=== PATIENT | female | born 1945 | race Caucasian/White ===

== ENCOUNTER 2016-09-29 11:02 | Emergency (ER) | payer MEDICARE, MEDICAID ==
[~2016-09-29] VITALS: Ht 170.2 cm; Wt 73.9 kg
[~2016-09-29 11:02] MED LIST: ADVAIR 250/5028 PUFF IN; ASPIR-LOW81 MG PO; AVAPRO75 MG PO; BUSPIRONE HCL15 MG PO; CALCIUM CARB W/1 TA1 PO; CLARITIN 10MG T10 MG PO; CLOPIDOGREL75 MG PO; DAILY VITAMIN1 EAC2 PO; DOCUSATE SODIU100 MG PO; ELIQUIS5 MG PO; FLONASE 50 MCG16 GM; FLORASTOR250 M1 PO; IMDUR 30MG. TAB30 MG PO; IPRATROPIUM BROM3 M1 IH; LAMISIL250 MG PO; LASIX 20MG. TAB20 MG PO; LINZESS145 MCG PO; LOPRESSOR 50 MG50 MG PO; MACRODANTIN50 MG PO; POTASSIUM CHLO10 ME3 PO; PRAVACHOL80 M1 PO; PROTONIX 40MG T40 MG PO; RISPERDAL2 M1 PO; SINGULAIR10 MG PO; SPIRIVA HA1 PUFF/INH IH; SYNTHROID0.088 MG PO; VENTOLIN H0.09 MG/AC IH; VISTARIL25 MG PO; ZOFRAN ODT4 MG PO; ZOLOFT100 MG PO
[2016-09-29] MEDS ORDERED: ADVAIR DISKUS 21 DSK IH (11:13)
[2016-09-29] MEDS ORDERED: FUROSEMIDE 20MG20 MG PO (11:14)
[2016-09-29] MEDS ORDERED: PRAVASTATIN SOD80 M1 PO (11:15)
[2016-09-29] MEDS ORDERED: LOSARTAN POTASS50 MG PO (11:15)
[2016-09-29 11:22] LABS: LYMPH # 2.5 K/mm3 (0.7-4.5); LYMPH % 28.6 % (10-50.0)
--- NOTE | 2016-09-29 11:30 | Emergency Room Report ---
History of Present Illness Time Seen by 1125 Presenting Problem in Triage Pt arrived:Walked Presenting Problem:PT REPORTS L SIDED CHEST PAIN AND PRESSURE THAT BEGAN LASTNIGHT. PT REPORTS PAIN HAS BEEN SHARP AND DULL IN NATURE WITH PRESSURE FEELINGS Onset of symptoms date/time:09/28/16/ or onset unknown for:MEDICAL HX UNKNOWN Treatment Prior to Arrival: 2 81 MG ASPIRIN, PT IS HOME O2 DEPENDENT AT 3L PER [place] [employer] Provided by:SELF Sepsis Risk Assessment: Temp: 98.1 B/P: 120/84 MAP: 96 Pulse: 71 Resp: 18 Recent fever? N Clinical Suspician of Infection? N Mental Status: 1 - Regular (Normal Baseline) Sepsis Risk:Low Sepsis Risk Have you (or family members/close friends) recently traveled outside the [place]? N If Yes, where/when: Have you had exposure to infectious disease within the past month? N TB? Other? Specify: Source patient, RN notes reviewed Exam Limitations no limitations Comment Pt comes to the ED with left sided Chest pain and pressure that began last night. Pain has been both sharp and dull. She is Home O2 dependent on 3L [place] Her EKG shows a RBBB with a wide QRS. She reportedly had a stress test done here yesterday but does not know the results. Her PCP is Dr. Jonas in [place] and her Physician Office Nurse is Dr. HANK Dennis Cardiac Chest Pain Chest pain indicative of cardiac Yes ALLERGIES Coded Allergies: Iodinated Contrast Media - Oral and (Mild, 09/12/16) Opioids - Morphine Analogues (09/12/16) Opioids-Meperidine and Related (09/12/16) Opioids-Methadone and Related (09/12/16) Phenothiazines (08/18/16) Sulfa (Sulfonamide Antibiotics) (08/18/16) codeine (08/18/16) iohexol (08/18/16) meperidine (08/18/16) promethazine (08/18/16) sulfamethoxazole (From SEPTRA) (08/18/16) trimethoprim (From NOVRA) (08/18/16) Uncoded Allergies: CLASS: 36:68 - DIAGNOSTIC; ROENTGENOGRAPHY (09/12/16) Home Medications Active Scripts Metoprolol Tartrate (Lopressor) 50 MG PO TID #90 TAB Ref 1 Prov: 09/14/16 IRBESARTAN (Irbesartan) 75 MG PO DAILY #30 TAB Ref 2 Prov: 09/14/16 Apixaban (Eliquis) 5 MG PO BID #60 TAB Ref 1 Prov: 09/14/16 Reported Medications ALBUTEROL (Ventolin Hfa) 1-2 PUFF IH Q4HP PRN COPD ALBUTEROL-IPRATROPIUM (Iprat-Albut 0.5-3(2.5) MG/3 Ml) 3 ML IH Q6HP PRN COPD Buspirone Hcl 15 MG PO BID CALCIUM CARBONATE/VITAMIN D3 (Calcium 600 + Vit D 400 Tablet) 1 TAB PO BID CLOPIDOGREL BISULFATE (Clopidogrel 75MG) 75 MG PO DAILY Fluticasone Propionate (Flonase 50 Mcg Nasal [place]) 1 SPRAY NA DAILY Hydroxyzine Pamoate (Vistaril) 25 MG PO TID PRN ANXIETY Linaclotide (Linzess 145MCG) 145 MCG PO DAILY Montelukast Sodium (Singulair) 10 MG PO QHS Multivitamin (Daily Vitamin Formula) 1 TAB PO DAILY NITROFURANTOIN MACROCRYSTAL (Macrodantin Capsule) 50 MG PO QHS Ondansetron (Zofran 4MG Odt) 4 MG PO DAILYP PRN NAUSEA Risperidone (Risperdal) 2 MG PO QHS Saccharomyces Boulardii (Florastor) 250 MG PO BID Aspirin (Aspir-Low) 81 MG PO DAILY Docusate Sodium 100 MG PO BID Furosemide (Lasix 20MG) 20 MG PO DAILY Levothyroxine Sodium (Synthroid 0.088MG) 0.088 MG PO DAILY Loratadine (Claritin 10MG) 10 MG PO DAILY POTASSIUM CHL (Potassium Chloride) 10 MEQ PO DAILY Pravastatin Sodium (Pravachol) 80 MG PO QHS SERTRALINE HYDROCHLORIDE (Zoloft 100MG) 100 MG PO DAILY TERBINAFINE HCL (Lamisil) 250 MG PO DAILY Tiotropium [place] (Spiriva) 1 PUFF IH DAILY FLUTICASONE/SALMETEROL (Advair 250-50 Diskus) 1 PUFF IH BID Furosemide (Furosemide) 20 MG PO DAILY #30 Pravastatin Sodium 80 MG PO QHS #30 Losartan Potassium (Losartan 50MG) 50 MG PO DAILY #30 History Medical History General CAD? No Angina: Yes DC: No Hypertension? Yes Hyperlipidemia? No CHF? No DVT? No PE? No COPD? Yes Asthma? Yes Anemia? No GERD? No Gastric ulcers? No GI Bleed? No Hernia? Yes Thyroid Problems? No Hypothyroidism? No CVA? Yes Seizures? No Diabetes? No UTI? Yes Stones? Yes BPH? No GB Disease: No Nephritic Syndrome? No Asplenia? No Hepatitis? No Sickle Cell Disease? No Arthritis? No Migraines? No Cataracts? No Glaucoma? No MRSA? No HIV? No TB? No Anxiety? No Depression? No Cancer? No More? 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 Family History Family Hx Diabetes No CAD Yes Hypertension Yes Hyperlipidemia Yes Cancer Yes TB No Social History Smoking Hx Smoker: Never Smoker Tobacco: No Packs/day N/A Alcohol Alcohol: No Review of Systems All Other Systems Reviewed and Negative Constitutional see HPI Respiratory see HPI Cardiovascular see HPI Physical Exam Vital Signs Vital Signs Date Time Temp Pulse Resp B/P Pulse O2 O2 Flow FiO2 Ox Delivery Rate 09/29 1148 98.4 74 18 159/92 99 3 09/29 1104 98.1 71 18 120/84 95 3 General Appearance normal appearance, WD/WN, no apparent distress Respiratory Status No: respiratory distress. Lung Sounds bilateral: normal breath sounds, decreased breath sounds. Cardiovascular regular rate/rhythm Neurologic alert, dietitian therapeutic II-XII nml as tested Medical Decision Making LABS/Meds/Orders Pt receiving controlled substance in ED? No Results/Orders Laboratory Tests 09/29/16 1110: B-Natriuretic Peptide 222 H 09/29/16 1110: Sodium 135 L, Potassium 4.6, Chloride 100, Carbon Dioxide 33 H, BUN 18, Creatinine 1.1 H, Estimated Creat Clear 53, Estimated GFR (MDRD) 49 L, Glucose 86, Calcium 9.0, Total Bilirubin 0.4, AST 23, ALT 19, Alkaline Phosphatase 76, Creatine Kinase 56, CK-MB (CK-2) Rel Index 0.9, CK and CKMB Interp < 0.5, Troponin I < 0.02, Total Protein 7.5, Albumin 3.4, Globulin 4.1 H, Albumin/ Globulin Ratio 0.8 L, WBC 8.9, RBC 4.47, Hgb 12.0 L, Hct 37.9, MCV 84.7, RDW 15.1, Plt Count 60 L, MPV 12.4 H, Gran % 60.6, Gran # 5.4, Lymphocytes % 28.6, Monocytes % 9.2, Eosinophils % 1.1, Basophils % 0.5, Lymphocytes # 2.5, Monocytes # 0.8, Eosinophils # 0.1, Basophils # 0.0, PUBS MCHC 31.7 L, MCH 26.8 L Current Medication Orders Sig/Argelia Start time Last Medication Dose Route Stop Time Status Admin Ondansetron HCl 4 MG ONCE ONE 09/29 1200 DC 09/29 IV 09/29 1201 1151 Ondansetron HCl 0 .STK-MED ONE 09/29 1151 DC .ROUTE Albuterol/Ipratropium 3 ML ONCE ONE 09/29 1145 DC INH 09/29 1146 Sodium Chloride 10 ML PRN PRN 09/29 1115 AC IV 09/30 1104 Orders Procedure Date/time Status OP COURTSEY MEAL 09/29 1155 Active BRAIN NATRIURETIC PEPTIDE 09/29 1142 Complete RT REQUEST DUONEB 09/29 1139 Active SINUS SERIES 3 VIEWS 09/29 1139 Active ELECTROCARDIOGRAM REQUEST 09/29 1104 Active CHEST-PORTABLE 09/29 1104 Active IV SALINE LOCK 09/29 1104 Active RADIOLOGICAL EQUIPMENT SPECIALIST 09/29 1104 Active CBC WITH AUTO DIFF 09/29 1104 Complete CARDIAC ENZYMES 09/29 1104 Complete CHEM 12 PROFILE 09/29 1104 Complete CM/EKG CM/EKG EKG Wide complex , RBBB, regular rhythm but do not see pacer spike XRAY/CT/US XRAY/CT/US XRAY chest, sinus XR interpretation by reviewed by me Xray Results normal/NAD Departure Departure Time of Disposition 1219 Disposition DC Home or Self Care(routine) Clinical Impression Primary Impression: Atypical chest pain Secondary Impressions: COPD (chronic obstructive pulmonary disease) Qualifiers: COPD type: unspecified COPD Qualified Code: J44.9 - Chronic obstructive pulmonary disease, unspecified Thrombocytopenia Condition STABLE Referrals [facility] Lizzy BRIDGES II (PCP): 2 Days-Call Office Patient Instructions Chronic Obstructive Pulmonary Disease (Alternative Therapy) , DI for Atypical Chest Pain, DI for Chronic Obstructive Pulmonary Disease Additional Instructions Use medicines as prescribed and followup with PCP or Dr. MCKINNEY as needed or return to the ED wth any worsening symptoms Discharge Counseling Counseled pt/family regarding diagnosis, test results, medications/RX, home care, follow up needs ED Critical Care Critical Care No If Critical Care minutes are documented, the time involved in the performance of seperately reportable procedures was not counted toward critical care time documented. I directly delivered medical care to this critically ill and/or injured patient. Timely evaluation and treatment was necessary to address the significant organ system(s) dysfunction present in this patient. at 1222
[2016-09-29 11:44] LABS: BUN 18 mg/dL (7-18)
[2016-09-29 11:45] LABS: GFR (ESTIMATED) 49 ML/MIN (59-)
--- OUTSIDE RECORDS SUMMARY | 2016-09-29 12:23 | External Medical Summary Rpt ---
Author Author , JOSEPH RUIZ Address Unknown Phone Care Team Providers Care Peoplesoft Consultant Name Role Phone DANITZA RIDER, Unavailable Unavailable DANITZA RIDER ACTIVE DAY OF Unavailable Unavailable KOI, ACTIVE DAY OF [facility] ACTIVE DAY OF Unavailable Unavailable KOI, ACTIVE DAY OF [facility], [facility] JONES ARON, JONES Unavailable Unavailable ARON AHMED ADN, AHMED ADN Unavailable Unavailable AIKAT SHA, AIKAT SHA Unavailable Unavailable [facility] , Unavailable Unavailable [facility] [place] [facility] [place] Unavailable [facility]available [facility] [place] RIFAI LACEY, AL Unavailable Unavailable RIFAI LACEY ALLRAN JR VEE, ALLRAN Unavailable Unavailable JR VEE ALLRAN JR VEE, ALLRAN Unavailable Unavailable JR VEE WALLACE ANT, WALLACE Unavailable Unavailable ANT [facility] Unavailable Unavailable RESPONSE, [facility] Unavailable Unavailable RESPONSE, [facility] [place], Unavailable Unavailable INC., [facility] [employer] [facility] [place], Unavailable Unavailable INC., [facility] [place], INC. EVANGELISTA CHANCE, EVANGELISTA CHANCE Unavailable Unavailable AYACH XAVI, AYACH XAVI Unavailable Unavailable PARIS HARDEN Unavailable Unavailable JIM LUNDBERG MD GLORIA, Unavailable Unavailable TAMIKA KOVACS GLORIA BEACH ARON, BEACH ARON Unavailable Unavailable BEACH ARON, BEACH ARON Unavailable Unavailable EDGARD REGLA, Unavailable Unavailable EDGARD REGLA ANIA ANT, ANIA ANT Unavailable Unavailable BRACKEN SHIRAZ, BRACKEN Unavailable Unavailable SHIRAZ ADAMARIS III BRAYAN, Unavailable Unavailable ADAMARIS III BRAYAN BRANDSER GLORIA, Unavailable Unavailable BRANDSER GLORIA ROXI THERESA, ROXI Unavailable Unavailable THERESA KEANE KIRILL, KEANE Unavailable Unavailable KIRILL BROWN RAC, BROWN RAC Unavailable Unavailable SIGIFREDO DEL, Unavailable Unavailable SIGIFREDO DEL SINHA HORTENCIA, SINHA HORTENCIA Unavailable Unavailable ARACELIS BAXTER, Unavailable Unavailable ARACELIS HSU JR. CHA, Unavailable Unavailable JR. VEE [facility] Unavailable [facility], [facility] Unavailable Unavailable REHABILITATION, [facility], Unavailable Unavailable [facility] Un[facility] Unavailable [facility] Unavailable Unavailable [facility] CHOLERA KIRILL, CHOLERA Unavailable Unavailable KIRILL VICTOR SUSI, VICTOR Unavailable Unavailable DONN ESCALONA, Unavailable Unavailable DONN FRAGOSO [facility], Unavailable Unavailable [facility] Unavailable Unavailable [facility], [facility] GALVIN LEE, GALVIN LEE Unavailable Unavailable ROCK JAYLYN, Unavailable Unavailable ROCK JAYLYN [facility]SA [facility], Unavailable Unavailable [facility]ER[facility] Un[facility] AURELIANO LUGO MD Unavailable Unavailable PSC, AURELIANO LUGO MD [facility] JACQUELINE ADR, JACQUELINE Unavailable Unavailable ADR [facility] Unavailable Unavailable [facility], [facility] Unavailable Unavailable [facility], [facility] STEPHANIE TIERNEY, BROWN TIERNEY Unavailable Unavailable LUPE PETTIT, Unavailable Unavailable LUPE PETTIT JR, CHA, Unavailable Unavailable ECPINA MCNEILL CHA CORRIE AVA, CORRIE Unavailable Unavailable AVA CORRIE AVA, CORRIE Unavailable Unavailable AVA [facility] FAFIDEL WAQAS, FAFIDEL WAQAS Unavailable Unavailable BILLY DANG Unavailable Unavailable SINTIA SHEN, Unavailable Unavailable SINTIA VILLAGOMEZ NAN, BLISS Unavailable Unavailable NAN BALL, III QUENTIN, Unavailable Unavailable BALL, III QUENTIN CROWELL MAR, CROWELL MAR Unavailable Unavailable [facility], Unavailable Unavailable [facility] GELORMINI ANDREW, Unavailable Unavailable GELORMINI ANDREW [facility]available [facility]available , [facility] Unavailable Unavailable [facility], [facility] Unavailable Unavailable EMS, [facility] HILLMAN MJ, HILLMAN MJ Unavailable Unavailable ABDULLAHI HUYNH Unavailable Unavailable MARABDULLAHI MAR VIVIAN THO, VIVIAN THO Unavailable Unavailable JERMAINE ANI, Unavailable Unavailable JERMAINE ANI [facility], Unavailable Unavailable [facility] Unavailable Unavailable INC, [facility], Unavailable Unavailable INC., [facility], INC. [facility], Unavailable Unavailable INC., [facility], INC. SINDY LAWLER, Unavailable Unavailable SINDY RICHARDS, Unavailable Unavailable CHUCKIE NOGUERA, Unavailable Unavailable DES K, CHUCKIE, DES K SANCHES II ALA, SANCHES II Unavailable Unavailable ALA [facility] Un[facility] Un[facility], [facility] DURHAM MJ, DURHAM Unavailable Unavailable MJ DURHAM, LUPE S, Unavailable Unavailable DURHAM, LUPE S ARAVIND JAYLYN, ARAVIND Unavailable Unavailable JAYLYN HEEB CHR, HEEB CHR Unavailable Unavailable HESSELL EUGEN E, Unavailable Unavailable HESSELL EUGEN E SILKE MCNEILL DON, Unavailable Unavailable SILKE MCNEILL DON HERMAN MADYSON, HERMAN MADYSON Unavailable Unavailable HULLER RAL, HULLER Unavailable Unavailable RAL LIU TRA, LIU TRA Unavailable Unavailable HURST TERENCE, HURST TERENCE Unavailable Unavailable INFECTIOUS DISEASE Unavailable Unavailable CONSULTAN, INFECTIOUS DISEASE CONSULTAN PARISH BEDOYA, Unavailable Unavailable LUCA OLIVIER, Unavailable Unavailable LUCA MAYO LAR, TODD Unavailable Unavailable LAR MOUSTAPHA CHR, MOUSTAPHA Unavailable Unavailable CHR ADRIANA III VEE, Unavailable Unavailable ADRIANA III VEE [facility] JOEY PEPITO, Unavailable Unavailable JOEY PEPITO BUBBA ARVIND, BUBBA Unavailable Unavailable ARVIND [facility], Unavailable Unavailable [facility] ABIGAIL REGLA, ABIGAIL REGLA Unavailable Unavailable KLEIMEYER ERIK, Unavailable Unavailable [facility] OK[facility], Unavailable Unavailable [facility] RAMÍREZ GOLDMAN KOTTSARAH Unavailable Unavailable SUSI IBETH C, IBETH C Unavailable Unavailable IBETH CHI, IBETH CHI Unavailable Unavailable IBETH, C S, IBETH, C S Unavailable [facility] Un[facility], Unavailable Unavailable [facility] AILYN WHITNEY, AILYN Unavailable Unavailable WHITNEY LAUSE, ALLYSON V, Unavailable Unavailable LAUSE, ALLYSON V DENISE ARON, DENISE Unavailable Unavailable ARON BELKYS JAM, BELKYS JAM Unavailable Unavailable BARBARA QUENTIN, BARBARA Unavailable Unavailable QUENTIN BARBARA QUENTIN, BARBARA Unavailable Unavailable QUENTIN MCCURDY JACK, MCCURDY JACK Unavailable Unavailable [facility] Unavailable [facility], [facility], [facility]available Unavailable [facility] Unavailable [facility], [facility] Unavailable Unavailable 9[facility] Unavailable Unavailable ACTION, [facility] JULIÁN REGLA, JULIÁN Unavailable Unavailable REGLA JULIÁN REGLA, JULIÁN Unavailable Unavailable REGLA LUBBERS SHIRAZ, LUBBERS Unavailable Unavailable SHIRAZ RUIZ, RUIZ Unavailable Unavailable RUIZ SUSIE, RUIZ Unavailable Unavailable SUSIE [facility] Unavailable Unavailable SERVICES, [facility] KENDRA AUGUST, KENDRA Unavailable Unavailable [facility]UGUST [facility] Unavailable Unavailable [facility], [facility] GAMA MJ, GAMA Unavailable Unavailable MJ MARINA ESQUEDA MD, Unavailable Unavailable MARINA ESQUEDA MD [facility] Un[facility] LLC, [facility], [facility] Unavailable Unavailable [facility] -, [facility] Unavailable Unavailable - [place], [facility] Unavailable Unavailable [facility] Unavailable Unavailable SERV COLLECTIONS DIRECTOR R, [facility] SERV COLLECTIONS DIRECTOR R [facility] Unavailable Unavailable SERV COLLECTIONS DIRECTOR R, [facility] SERV COLLECTIONS DIRECTOR R [facility] Unavailable Unavailable SERVICE, [facility] MERHAR GAR, MERHAR Unavailable Unavailable GAR MESSERLI ADR, Unavailable Unavailable MESSERLI ADR [facility], COLLECTIONS DIRECTOR [facility] Unavailable [facility]available [facility], [facility] NICOLE [facility] DO Unavailable Unavailable INC, [facility] MINION SHIRAZ, MINION Unavailable Unavailable SHIRAZ LUIS, DEBABRATA, Unavailable Unavailable LUIS, DEBABRATA MUSIC, MUSIC Unavailable Unavailable NEILS GLORIA, NEILS GLORIA Unavailable Unavailable [facility], Un[facility], Unavailable Unavailable [facility] NICKELS SHIRAZ, NICKELS Unavailable Unavailable SHIRAZ VALDO GUILHERME, Unavailable Unavailable VALDO GUILHERME OSTERHAGE BRIDGET, Unavailable Unavailable OSTERHAGE BRIDGET OUTSA REKHA, OUTSA REKHA Unavailable Unavailable TRACY REGLA, TRACY REGLA Unavailable Unavailable [facility] Unavailable Unavailable [facility] Unavailable [facility]available SQUAD, [facility] Unavailable Unavailable [facility], [facility] Unavailable [facility] JAN FRANKS Unavailable Unavailable BAR FORTUNE, CHAVA, FORTUNE, Unavailable Unavailable CHAVA OLIVO BRA, OLIVO Unavailable Unavailable BRA COBB SUSI, Unavailable Unavailable COBB SUSI [facility] Unavailable Unavailable [facility] PULMANO SIRENA, PULMANO Unavailable Unavailable SIRENA BARTON MUH, BARTON Unavailable Unavailable MUH BARTON, PERKINS, Unavailable Unavailable BARTON, PERKINS [facility] Un[facility] Unavailable Unavailable PSC, [facility] RAMAIAH VEE, RAMAIAH Unavailable Unavailable VEE RAMAIAH, IRON, Unavailable Unavailable RAMAIAH, IRON REDA HAS, REDA HAS Unavailable Unavailable MATT NEREIDA, Unavailable Unavailable MATT NEREIDA REKHRAJ, LEXA, Unavailable Unavailable REKHRAJ, LEXA REXROAD, MRAIELA T, Unavailable Unavailable REXROAD, MARIELA T ESTEBAN GLORIA, Unavailable Unavailable ESTEBAN GLORIA RINALDINI LACEY, Unavailable Unavailable RINALDINI LACEY RINALDINI LACEY, Unavailable Unavailable RINALDINI LACEY RINALDINI, CHANA, Unavailable Unavailable RINALDINI, CHANA ROEBKER JAM, ROEBKER Unavailable Unavailable JAM EMANUEL GUILHERME, EMANUEL Unavailable Unavailable GUILHERME CT JACQUELINE, CT JACQUELINE Unavailable Unavailable [facility] Unavailable Unavailable [place] Unavailable Unavailable [facility], [facility] Unavailable Un[facility], [facility] RUSCHMAN KEYLA, Unavailable Unavailable RUSCHMAN KEYLA ONUR MAR, ONUR Unavailable Unavailable MAR ABBY JACK, ABBY JACK Unavailable Unavailable AVTAR JACQUELINE, AVTAR Unavailable Unavailable JACQUELINE CECY LEAH, CECY Unavailable Unavailable LEAH SCHKELSY RAN, Unavailable Unavailable SCHLEENBAJORGITO RAN HONG JAM, HONG Unavailable Unavailable JAM SCHMITTER NEREIDA, Unavailable Unavailable SCHMITTER NEREIDA LAVELL THERESA, LAVELL Unavailable Unavailable THERESA SUAD LEE, SUAD Unavailable Unavailable BELKYS [facility] Unavailable Unavailable CENTER, [facility] Unavailable Unavailable [facility], [facility] CALDERON WAQAS, CALDERON Unavailable Unavailable WAQAS FERNANDEZ, Unavailable Unavailable HUANG CONNELL Unavailable Unavailable ENCINAS CHR, ENCINAS CHR Unavailable Unavailable ENCINAS AYALA, ENCINAS AYALA Unavailable Unavailable JANAE LALITA, JANAE Unavailable Unavailable LALITA [facility] Unavailable [facility] Unavailable [facility], [facility] Unavailable Unavailable [facility], [facility] Unavailable Unavailable [facility], [facility] Unavailable [facility], Unavailable Unavailable [facility]available Unavailable COLLECTIONS DIRECTOR ST, [facility] COLLECTIONS DIRECTOR [facility]available Unavailable CENTER, [facility] Unavailable Unavailable [facility]ENTER, [facility] Unavailable Unavailable PHYSICIANS, [facility] Unavailable Unavailable EMELINA, [facility] ADD[facility], Unavailable Unavailable [facility] ADDIE REYNALDO, REYNALDO Unavailable Unavailable ELVA VANEAGS, Unavailable Unavailable MIGUELITO MORENO Unavailable Unavailable ISI BALES Unavailable Unavailable [facility] Unavailable [facility]available [facility] MARYA DIR, MARYA Unavailable Unavailable DIR MARYA ALAYNA, MARYA Unavailable Unavailable ALAYNA THRELKELD II, Unavailable Unavailable THRELKELD II THRELKELD II QUENTIN, Unavailable Unavailable THRELKELD II QUENTIN MCGHEE GILES, MCGHEE GILES Unavailable [facility]available [facility] Un[facility] TRUE SUSIE, TRUE SUSIE Unavailable Unavailable [facility], Unavailable Unavailable [facility] DANA SAUCEDA VEE, CHRISTINE Unavailable Unavailable VEE VERHEY PET, VERHEY Unavailable Unavailable PET VILLAFLOR, FERNANDO M, Unavailable Unavailable VILLAFLOR, FERNANDO M [facility] Unavailable Unavailable PROFESSIO, [facility] WADE GUILHERME, WADE Unavailable Unavailable GUILHERME GERMÁN JR THO, WHAYNE Unavailable Unavailable JR ANAIS GORDON JR, Unavailable Unavailable ANAIS DUNLAP JR DEN, Unavailable Unavailable SHARI DEN [facility], Unavailable Unavailable [facility] WILLOBY, WILLOBY Unavailable Unavailable WILLOBY KIRILL, WILLOBY Unavailable Unavailable KIRILL LINO KIRILL, LINO Unavailable Unavailable KIRILL JR JAMESON QUENTIN, Unavailable Unavailable JR QUENTIN BARBA [facility]NG [facility]AN Unavailable [facility]available [facility], Un[facility], Unavailable [facility] CLAUDIAJENNIFER PENA, CLAUDIAJENNIFER PENA Unavailable Unavailable BERNADETTE VARGAS, Unavailable Unavailable BERNADETTE VARGAS Purpose Continuity of Care Document - 03-27-2007 through 2016 Problems Code Diagnosis DOS Provider Status R079 CHEST PAIN 09-11-2016 ST UNSPECIFIED [facility] PHYSICIANS R0989 OTH SPEC SX 09-11-2016 ST & SIGNS [facility] INVLV THE PHYSICIANS CIRC & RESP SYS R110 NAUSEA 09-11-2016 [facility] PHYSICIANS R350 FREQUENCY 09-11-2016 ST OF [facility] MICTURITION PHYSICIANS R5383 OTHER 09-11-2016 ST FATIGUE [facility] PHYSICIANS R7989 OTHER SPEC 09-11-2016 ST ABNORMAL [facility] FINDINGS PHYSICIANS BLOOD CHEMISTRY Z6825 BODY MASS 09-11-2016 ST INDEX BMI [facility] 25.0-25.9 PHYSICIANS ADULT I509 HEART 08-31-2016 [facility] FAILURE HOME UNSPECIFIED MEDICAL EQUIPME 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 EQUIPME N390 URINARY 08-24-2016 ST TRACT [facility] INFECTION PHYSICIANS SITE NOT SPECIFIED R1030 LOWER 08-24-2016 ST ABDOMINAL [facility] PAIN PHYSICIANS UNSPECIFIED H68870 BASAL CELL 08-23-2016 DERMATOLOGY CARCINOMA SKIN OF CONSULTANTS OTHER PART PSC OF TRUNK I10 ESSENTIAL 08-18-2016 [facility] HYPERTENSI[facility] INC N L7601 INTRAOP HEM 08-18-2016 [facility] SKN&SUBQ INC TISS COMP DERM PROC B351 TINEA 08-09-2016 ST UNGUIUM [facility] PHYSICIANS J302 OTHER 08-09-2016 ST SEASONAL [facility] ALLERGIC PHYSICIANS RHINITIS L089 LOCAL INF 08-09-2016 THE SKIN & [facility] SUBCUTANEOU PHYSICIANS S TISSUE UNS R0981 NASAL 08-09-2016 ST CONGESTION [facility] PHYSICIANS B14508 SQUAMOUS 07-26-2016 DERMATOLOGY CELL CA SKIN RT CONSULTANTS UPPER LIMB PSC INCL SHLDR L570 ACTINIC 07-26-2016 DERMATOLOGY KERATOSIS CONSULTANTS PSC Z6824 BODY MASS 07-03-2016 ST INDEX BMI [facility] 24.0-24.9 PHYSICIANS ADULT J441 CHRONIC 06-29-2016 OBSTRUCTIVE [facility] PULMONARY PHYSICIANS DZ W/EXACERBAT ION J101 FLU D/T OTH 06-26-2016 ST ID FLU [facility] VIRUS OT PHYSICIANS RESP MANIFESTATI ONS 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 OF 06-11-2016 DERMATOLOGY UNCERTAIN BEHAVIOR OF CONSULTANTS SKIN PSC B69354 CUTANEOUS 06-11-2016 DERMATOLOGY ABSCESS BACK ANY CONSULTANTS PART EXCEPT PSC BUTTOCK L280 LICHEN 06-11-2016 DERMATOLOGY SIMPLEX CHRONICUS CONSULTANTS PSC B9689 OTH SPEC 05-24-2016 ST BACTERIAL [facility] AGNT CAUSE PHYSICIANS DZ CLASSIFIED ELSW G479 SLEEP 05-24-2016 ST DISORDER [facility] UNSPECIFIED PHYSICIANS J0190 ACUTE 05-24-2016 ST SINUSITIS [facility] UNSPECIFIED PHYSICIANS J209 ACUTE 05-24-2016 ST BRONCHITIS [facility] UNSPECIFIED PHYSICIANS K210 GASTRO-ESOP 05-24-2016 ST HAGEAL [facility] REFLUX PHYSICIANS DISEASE W/ ESOPHAGITIS E039 HYPOTHYROID 04-11-2016 ST. ISM [facility] UNSPECIFIED ADDIE E559 VITAMIN D 04-11-2016 ST. DEFICIENCY [facility] UNSPECIFIED ADDIE E785 HYPERLIPIDE 04-11-2016 ST. 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 I440 ATRIOVENTRI 12-19-2015 [place] [facility] C[facility] BLOCK SERV FIRST [facility] DEGREE I4510 UNSPECIFIED 12-19-2015 [place] [facility] CH BLOCK I471 SUPRAVENTRI 12-19-2015 [facility] TACHYCARDIA I4891 UNSPECIFIED 12-19-2015 [facility]- ATRIAL [facility] FIBRILLATIO EMS N R002 PALPITATION 12-19-2015 ST S [facility] PHYSICIANS R0789 OTHER CHEST 12-19-2015 [facility] R0902 HYPOXEMIA 12-19-2015 [facility] PHYSICIANS R092 RESPIRATORY 12-19-2015 [facility]- ARREST [facility] EMS R55 SYNCOPE AND 12-19-2015 ST COLLAPSE [facility] PHYSICIANS R9431 ABNORMAL 12-19-2015 [facility] ELECTROCARD SERV IOGRAM FOUNDATION S2493AH CONTUSION 12-19-2015 ST OF SCALP [facility] INITIAL PHYSICIANS ENCOUNTER D2836MI UNSPECIFIED 12-19-2015 [place] [facility] OF SERV HEAD [facility] INITIAL ENCOUNTER V316IXG UNSPECIFIED 12-19-2015 [place] [facility] OF SERV NECK FOUNDATION INITIAL ENCOUNTER Q18405D CONTUSION 12-19-2015 ST UNS BACK [facility] WALL THORAX PHYSICIANS INITIAL ENCOUNTER D52XMDF UNSPECIFIED 12-19-2015 [place] [facility] F[facility] INITIAL [facility] ENCOUNTER K5909 OTHER 12-02-2015 ST CONSTIPATIO [facility] N PHYSICIANS R109 UNSPECIFIED 12-02-2015 ST ABDOMINAL [facility] PAIN PHYSICIANS N3001 ACUTE 09-16-2015 ST CYSTITIS [facility] WITH PHYSICIANS HEMATURIA Z1231 ENCOUNTER 09-16-2015 ST SCREENING [facility] MAMMO MALIG PHYSICIANS NEOPLASM BREAST N3000 ACUTE 08-08-2015 ST CYSTITIS [facility] WITHOUT PHYSICIANS HEMATURIA R8290 UNSPECIFIED 08-08-2015 ST ABNORMAL [facility] FINDINGS IN MED CTR COLLECTIONS DIRECTOR URINE ST H34379 PERSONAL 08-08-2015 ST HISTORY OF [facility] URINARY PHYSICIANS TRACT INFECTIONS I480 PAROXYSMAL 07-19-2015 [place] [facility] ATRIAL SERV FIBRILLATIO FOUNDATION N I498 OTHER 07-19-2015 [facility] SPECIFIED MEDICAL CARDIAC RESPONSE ARRHYTHMIAS J029 ACUTE 07-19-2015 [facility] MED[facility] PHARYNGITIS SERV FOUNDATION UNSPECIFIED J90 PLEURAL 07-19-2015 [place] [facility] EFFUSION SERV NOT FOUNDATION ELSEWHERE CLASSIFIED J9811 ATELECTASIS 07-19-2015 [facility] SERV [facility] R072 PRECORDIAL 07-19-2015 ST PAIN [facility] MED CTR Z7902 ANIMAL DAMAGE CONTROL AGENT 07-19-2015 [facility] MEDICAL CURR USE SERV ANTITHROMBO FOUNDATION TICS/ANTIPL ATELETS Z7982 DETENTION 07-19-2015 [place] [facility] CURRENT USE SERV OF ASPIRIN [facility] H44888 PAIN IN 06-24-2015 ST. LEFT [facility] SHOULDER ADDIE R937 ABN FIND ON 06-24-2015 ST. DX IMAG [facility] OTH PART ADDIE MUSCULOSKEL ETAL SYS I214 NON-ST 06-09-2015 [place] [facility] ELEVATION SERV MYOCARDIAL FOUNDATION INFARCTION I499 CARDIAC 06-08-2015 [facility] ARRHYTHMIA [facility] UNSPECIFIED SERV COLLECTIONS DIRECTOR R R0602 SHORTNESS 06-08-2015 ST. OF BREATH [facility] EMELINA R1084 GENERALIZED 06-08-2015 [facility] ABDOMINAL LIFE [facility] PAIN R7889 FINDING OTH 06-08-2015 ST. SPEC [facility] SUBSTANCES EMELINA NOT NORM FOUND BLOOD R918 OTHER 06-08-2015 [place] [facility] NONSPECIFIC SERV ABNORMAL FOUNDATION FINDING OF LUNG FIELD Q09019 OTHER LONG 06-08-2015 ST. TERM [facility] CURRENT EMELINA DRUG THERAPY C56320 PERSONAL 06-08-2015 [place] [facility]IST[facility] VENOUS THROMBOSIS& EMBOLISM Z950 PRESENCE OF 06-08-2015 [facility] PACEMAKER Z955 PRESENCE OF 06-08-2015 [facility] ANGIOPLASTY IMPLANT & GRAFT V2908UF COLLAPSED 06-06-2015 [facility] VERT NEC [facility] LUMB RGN ADDIE INIT ENC FX R300 DYSURIA 06-06-2015 [facility] PHYSICIANS B7002CL MULTIPLE FX 06-06-2015 ST. RIBS LT [facility] SIDE INIT ADDIE ENC CLOS FRACTURE R3464LE UNSPECIFIED 06-06-2015 . INJURY [facility] LOWER BACK ADDIE INITIAL ENCOUNTER I6523 OCCLUSION & 05-26-2015 ST. STENOSIS [facility] BILATERAL [place] CAROTID ARTERIES M549 DORSALGIA 05-26-2015 [facility] UNSPECIFIED LIFE [facility]QU[facility] W2956CM MX FX RIBS 05-26-2015 ST. LT SIDE [facility] SUBSEQUENT EMELINA ENC FX W/RTN HLNG Z7901 DETENTION 05-26-2015 ST. CURRENT USE [facility] OF EMELINA ANTICOAGULA NTS Z9181 HISTORY OF 05-26-2015 ST. FALLING [facility] EMELINA Z46150 ACUTE 05-23-2015 POST-TRAUMA [facility] TIC PHYSICIANS HEADACHE NOT INTRACTABLE R0781 PLEURODYNIA 05-23-2015 [facility] T1490 INJURY 05-23-2015 . 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[facility] ARTERY I351 NONRHEUMATI 04-18-2015 [facility] AORTIC [facility] VALVE INSUFFICIEN CY [id number] ACUTE EMBO 04-18-2015 [facility] DEEP VEINS UNS LOW EXTREM [id number] PERSONAL 04-18-2015 [facility] EMBOLISM [id number] PERSONAL HX 04-18-2015 [facility]B [facility] INFARCT NO RESID DEFICIT Z952 PRESENCE OF 04-18-2015 [place] PROSTHETIC [facility] HEART VALVE Z959 PRESENCE 04-18-2015 [facility] IMPLANT & GRAFT UNS [id number] OTHER 04-07-2015 [facility] SPE[facility] HEART DISEASES E780 PURE 04-06-2015 . [facility] GERALDO TEROLEMIA ADDIE E875 HYPERKALEMI 04-06-2015 [facility] I959 HYPOTENSION 04-06-2015 [facility] UNSPECIFIED J9610 CHRONIC 04-06-2015 [facility] FAIL UNS HYPOXIA/HYP ERCAPNIA R440 AUDITORY 02-15-2015 [facility] G9341 METABOLIC 02-11-2015 [facility] ENCEPHALOPA [facility] DO THY INC J9611 CHRONIC 02-11-2015 [facility] RESPIRATORY CH[facility]A DO FAILURE INC WITH HYPOXIA R443 HALLUCINATI 02-10-2015 [facility] UNSPECIFIED MED CTR 22384 12-22-2014 [facility] CAC INC REGION 9 496 CHRONIC 12-21-[address]WAY OF OBSTRUCTION KOI NEC 93059 COR 12-14-2014 [facility] GERALDO UNSPEC PHYSICIANS TYPE VESSEL THLOPTHLOCCO TRIBAL [place]OWN/NONI T 490 BRONCHITIS 12-14-2014 NOT GERALDO SPECIFIED PHYSICIANS ACUTE OR CHRONIC 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 UNSPECIFIED STATUS 37788 CHEST PAIN 11-25-2014 [place] [facility] UNSPECIFIED SERV FOUNDATION 22313 NONSPECIFIC 11-25-2014 [place] [facility] ABNORMAL SERV ELECTROCARD FOUNDATION IOGRAM V1251 PERSONAL 11-25-2014 [place] [facility] HISTORY, SERV VENOUS FOUNDATION THROMBOSIS AND EMBOLISM V433 HEART VALVE 11-25-2014 [place] [facility] REPLAC[place] SERV BY OTHER FOUNDATION MEANS 4019 UNSPECIFIED 11-24-2014 [place] [facility] ESSENTIAL SERV HYPERTENSIO FOUNDATION N 59019 ACUTE 11-24-2014 AIR METHODS MYOCARD [place] INFARCT UNSPEC SITE INIT EPIS CARE 4241 AORTIC 11-24-2014 [place] [facility] VALVE [facility] DISORDERS FOUNDATION 4293 CARDIOMEGAL 11-24-2014 [place] [facility] Y [facility] 5180 PULMONARY 11-24-2014 [place] [facility] COLLAPSE SERV [facility] 91669 DIVERTICULO 11-24-2014 F&S SIS OF RADIOLOGY COLON PC 5853 CHRONIC 11-24-2014 [place] [facility] KID[place] SERV DISEASE F[facility] STAGE III (MODERATE) 75275 SHORTNESS 11-24-2014 F&S OF BREATH RADIOLOGY PC 7862 COUGH 11-24-2014 [facility]&S RADIOLOGY PC 83132 MARFANS 11-23-2014 [facility] MED CTR 12221 HYPOXEMIA 11-23-2014 NEW [facility] MED CTR 2875 UNSPECIFIED 11-15-2014 [facility] THROMBOCYTO PHYS PENIA 86480 UNSPECIFIED 11-15-2014 [facility] TINNITUS N EMERGENCY PHYS 41003 ATRIAL 11-15-2014 [facility] FIBRILL[facility] COMMUNTIY N HOSPITA 7804 DIZZINESS 11-15-2014 [facility] AND N EMERGENCY GIDDINESS PHYS 00281 NAUSEA 11-15-2014 [facility] ALONE N EMERGENCY PHYS V4501 CARDIAC 11-15-2014 [facility] PACEMAKER COMMUNTIY IN SITU HOSPITA 2449 UNSPECIFIED 11-04-2014 [facility] HYPOTHYROID ISM 2724 OTHER AND 11-04-2014 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 7241 PAIN IN 01-25-2014 [facility] THORACIC [facility] 28902 OTHER 12-23-2013 AURELIANO Cee [place] FATIGUE PSC 58559 CLOSED 12-23-2013 AURELIANO Cee FRACTURE OF PARISH KOVACS ONE RIB PSC 82653 UNSPECIFIED 12-22-2013 [facility]BAR[facility] SAAVEDRA SITE OF ANKLE SPRAIN AND STRAIN V1588 PERSONAL 12-22-2013 [facility]BAR[facility] SAAVEDRA HISTORY OF FALL 7823 EDEMA 12-21-2013 [facility] [address] 58845 CLOSED 12-19-2013 ISI FRACTURE OF PHYSICAL RIB, MEDICINE UNSPECIFIED AND 48031 OTHER 12-15-2013 [place] [facility] DISEASES OF SERV SPLEEN FOUNDATIO 4400 ATHEROSCLER 12-15-2013 [place] [facility] [place] OF SERV AORTA FOUNDATIO 4414 ABDOMINAL 12-15-2013 [place] [facility] ANEURYSM SERV WITHOUT FOUNDATIO MENTION OF RUPTURE 5738 OTHER 12-15-2013 [place] [facility] SPECIFIED SERV DISORDERS FOUNDATIO OF LIVER 8052 CLOS FX 12-15-2013 [place] [facility] DORS SERV VERTEBRA FOUNDATIO W/O MENTION SP CORD INJURY 46551 CLOSED 12-15-2013 [place] [facility] FRACTURE OF SERV MULTIPLE FOUNDATIO RIBS UNSPECIFIED 4178 OTHER 12-14-2013 [place] [facility] SPECIFIED SERV DISEASE OF FOUNDATIO PULMONARY CIRCULATION 12460 OTHER CHEST 12-14-2013 [facility] 46986 ABDOMINAL/P 12-14-2013 [facility] [place] ELVIC RADIOLOGY SWELLING MASS/LUMP UNSPEC SITE 65609 CLOSED 12-14-2013 [place] [facility] FRACTURE OF SERV THREE RIBS FOUNDATION E9293 LATE 12-14-2013 [place] [facility] EFFECTS OF SERV ACCIDENTAL FOUNDATION FALL 04257 HTN CKD UNS 12-09-2013 [facility] W/CKD PARAM STAGE I REHABILITAT THRU STAGE ION IV/UNS 5859 CHRONIC 12-09-2013 [facility] PARAM DISEASE REHABILITAT UNSPECIFIED ION 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 ION V5419 AFTERCARE 12-09-2013 [facility] FRACTURE ION OTHER BONE V5789 OTHER 12-09-2013 [facility] SPECIFIED [facility] ION ION PROCEDURE OTHER 65780 OTH & UNS E 12-08-2013 [place] [facility] COLI SERV INFECTION [facility]ATION CLASS ELSW UNS SITE E8889 UNSPECIFIED 12-08-2013 [place] [facility] FALL SERV [facility]ATION 41975 OT 12-06-2013 [place] [facility] ANOMALIES SERV PULMONARY FOUNDATIO ART PULMONARY CIRC 08127 OTHER 12-06-2013 [place] [facility] NONSPECIFIC SERV ABNORMAL FOUNDATIO FINDING OF LUNG FIELD 2761 HYPOSMOLALI 11-27-2013 [facility] HYPONATREMI A 2763 ALKALOSIS 11-27-2013 [facility] 2769 ELECTROLYTE 11-27-2013 [facility] DISORDERS NEC 3688 OTHER 11-27-2013 [place] [facility] SPECIFIED SERV VISUAL FOUNDATIO DISTURBANCE S 93223 ACUT MICHELLE 11-27-2013 [facility] DEEP VES PROX LOWR EXTREM 8730 OPEN WOUND 11-27-2013 [place] [facility] SCALP SERV WITHOUT FOUNDATIO MENTION COMPLICATIO N 60484 ACUT 11-26-2013 [place] [facility] MYOCARD SERV INFARCT OTH FOUNDATION SPEC SITE EPIS CARE UNS 96465 SUPRAVENTRI 11-24-2013 [place] [facility] CULAR SERV PREMATURE FOUNDATION BEATS 9051 LATE EFF FX 11-24-2013 [place] [facility] SPN&TRNK SERV W/O MENTION FOUNDATIO SPINAL CORD LES V5331 FITTING AND 11-24-2013 [place] [facility] ADJUSTMENT SERV OF CARDIAC FOUNDATION PACEMAKER 4412 THORACIC 11-22-2013 NEW ANEURYSM HORIZONS WITHOUT MED CTR MENTION OF RUPTURE 7242 LUMBAGO 11-22-2013 F&S RADIOLOGY PC 73223 MUSCLE 11-22-2013 NEW WEAKNESS [facility]IZONS (GENERALIZE MED CTR D) 8690 INTRL 11-22-2013 [facility] INJURY UNS LIFE SQUAD ORGANS W/O OPEN WND IN CAVITY 9597 INJURY 11-22-2013 NEW OTHER&UNSPE HORIZONS CIFIED KNEE MED CTR LEG ANKLE&FOOT V1254 PERSONAL HX 11-22-2013 NEW TIA & CI HORIZONS W/O MED CTR RESIDUAL DEFICITS V4582 POSTSURG 11-22-2013 NEW PERCUT [facility] TRANSLUMINA MED CTR L COR ANGPLSTY STS V462 DEPENDENCE 11-22-2013 NEW ON MACHINE HORIZONS FOR MED CTR SUPPLEMENTA L OXYGEN 7842 SWELLING 11-20-2013 F&S MASS OR RADIOLOGY LUMP IN PC HEAD AND NECK 41289 CLOSED 11-20-2013 NEW FRACTURE OF HORIZONS TWO RIBS MED CTR 04725 OPEN WOUND 11-20-2013 [facility] SHOULDER LIFE SQUAD REGION WITHOUT MENTION COMP 920 CONTUSION 11-20-2013 NEW OF FACE H[facility]IZONS SCALP AND MED CTR NECK EXCEPT EYE V714 OBSERVATION 11-20-2013 F&S FOLLOWING RADIOLOGY OTHER PC ACCIDENT 35037 URINARY 11-04-2013 FREQUENCY GERALDO MED CTR COLLECTIONS DIRECTOR ST 7821 RASH AND 09-07-2013 OTHER GERALDO NONSPECIFIC PHYSICIANS SKIN ERUPTION V1083 PERSONAL 09-07-2013 ST HISTORY GERALDO OTHER PHYSICIANS MALIGNANT NEOPLASM SKIN 06528 OTHER 07-09-2013 [place] [facility] DISEASES OF SERV LUNG NOT FOUNDATIO ELSEWHERE CLASSIFIED 07824 OBESITY, 07-08-2013 [facility] 63525 OTHER 07-08-2013 [facility] CARDIAC EMS DYSRHYTHMIA S 39847 OBSTRUCTIVE 07-08-2013 [place] [facility] CHRONIC SERV BRONCHITIS FOUNDATIO WITHOUT EXACERBAT 5119 UNSPECIFIED 07-08-2013 [place] [facility] PLEURAL SERV EFFUSION FOUNDATIO 5691 RECTAL 07-08-2013 [facility] 7825 CYANOSIS 07-08-2013 [facility] EMS 50389 DIARRHEA 06-19-2013 [facility] PHYSICIANS 32443 LEUKOCYTOSI 05-27-2013 VIRTUAL S RADIOLOGIC UNSPECIFIED PROFESSIO 07360 ANAL OR 05-27-2013 VIRTUAL RECTAL PAIN RADIOLOGIC PROFESSIO 83562 ABDOMINAL 05-27-2013 VIRTUAL PAIN, RADIOLOGIC GENERALIZED PROFESSIO 2469 UNSPECIFIED 05-19-2013 DISORDER GERALDO OF THYROID PHYSICIANS 43538 EXTRINSIC 05-19-2013 [facility] DRUG UNSPECIFIED 08086 INJURY OF 05-19-2013 FACE AND GERALDO NECK OTHER PHYSICIANS AND UNSPECIFIED 4589 UNSPECIFIED 04-08-2013 ST GERALDO HYPOTENSION PHYSICIANS 4660 ACUTE 04-08-2013 ST BRONCHITIS [facility] MED CTR 86160 PRECORDIAL 04-08-2013 ST PAIN [facility] MED CTR 4270 PAROXYSMAL 02-02-2013 [facility] TACHYCARDIA 38336 SINOATRIAL 02-02-2013 [facility] D[facility] 4271 PAROXYSMAL 01-23-2013 [place] [facility] VENTRICULAR SERV FOUNDATIO TACHYCARDIA 5693 HEMORRHAGE 01-23-2013 [facility] EMERGENCY AND ANUS SERVICES 17692 ABDOMINAL 01-23-2013 [place] [facility] PA[place], SERV EPIGASTRIC FOUNDATIO V7281 PRE-OPERATI 01-23-2013 [place] [facility] VE SERV CARDIOVASCU FOUNDATIO LAR EXAMINATION 4139 OTHER AND 01-21-2013 [facility] UNSPECIFIED EMERGENCY ANGINA SERVICES PECTORIS 4168 OTHER 01-21-2013 [facility] PULMONARY HEART DISEASES 17289 OTHER 01-21-2013 [facility] DYSPNEA AND EMERGENCY SERVICES RESPIRATORY ABNORMALITI ES V1259 PERS HX, 01-21-2013 [place] [facility] OTHER SERV DISEASES OF FOUNDATIO CIRCULATORY SYSTEM 2720 PURE 01-08-2013 [place] [facility] HYPERCHOLES SERV TEROLEMIA FOUNDATIO 4179 UNSPECIFIED 01-08-2013 [place] [facility] DISEASE OF SERV PULMONARY FOUNDATIO CIRCULATION 4279 UNSPECIFIED 01-08-2013 [facility] CARDIAC ASHISH CO DYSRHYTHMIA EMS 4401 ATHEROSCLER 01-08-2013 [place] [facility] OS[place] OF SERV RENAL FOUNDATIO ARTERY 4419 AORTIC 01-08-2013 [place] [facility] ANEUR SERV UNSPEC SITE FOUNDATIO WITHOUT MENTION RUPTURE 587 UNSPECIFIED 01-08-2013 [place] [facility] RENAL SERV SCLEROSIS FOUNDATIO 7850 UNSPECIFIED 01-08-2013 PRECIOUS [facility] CO TACHYCARDIA EMS V1389 PERSONAL 01-08-2013 [facility] OTHER SPECIFIED DISEASES 76115 OTHER 11-21-2012 RADIOLOGY CONDITIONS [facility] 92273 ALTERED 11-21-2012 [facility] MED CTR 01390 ACUTE AND 11-17-2012 [place] [facility] CHRONIC SERV RESPIRATORY FOUNDATIO FAILURE 7802 SYNCOPE AND 11-17-2012 [place] [facility] COLLAPSE SERV FOUNDATIO 62018 UNSPECIFIED 11-15-2012 [facility] CONSTIPATIO N 5849 ACUTE 11-15-2012 [facility] FAILURE UNSPECIFIED 96074 ABDOMINAL 11-15-2012 [place] [facility] PAIN, SERV UNSPECIFIED FOUNDATIO SITE 78511 ABDOMINAL 11-15-2012 NEW PAIN OTHER HORIZONS SPECIFIED MED CTR SITE 2722 MIXED 09-15-2012 [place] [facility] HYPERLIPIDE SERV JOSEPH FOUNDATIO 42085 UNSPECIFIED 09-15-2012 [place] [place] [address] OBST 09-15-2012 [place] [facility] CHRONIC SERV BRONCHITIS FOUNDATIO W/ACUTE BRONCHITIS V4589 OTHER 07-14-2012 [place] [facility] POSTSURGICA SERV L STATUS FOUNDATIO OTHER 4553 EXTERNAL 07-08-2012 [facility] HEMORRHOIDS VEE WITHOUT MENTION COMP 04261 UNSPECIFIED 05-29-2012 ST GERALDO PYELONEPHRI PHYSICIANS TIS 15153 ABDOMINAL 05-29-2012 PAIN RIGHT [facility]L BLOOMERY UPPER PHYSICIANS QUADRANT 4519 PHLEBITIS&T 04-29-2012 HROMBOPHLEB GERALDO ITIS OF PHYSICIANS UNSPECIFIED SITE 7881 DYSURIA 04-29-2012 [facility] PHYSICIANS V1302 PERSONAL 04-22-2012 HISTORY OF [facility] BLOOMERY URINARY PHYSICIANS TRACT INFECTION 66311 OBSTRUCTIVE 04-14-2012 [facility] 4359 UNSPECIFIED 03-28-2012 [place] [facility] TRANSIENT SERV CEREBRAL FOUNDATIO ISCHEMIA 4370 CEREBRAL 03-27-2012 [place] [facility] ATHEROSCLER SERV OSIS FOUNDATIO 77801 AORTIC 03-27-2012 [place] [facility] ECTASIA SERV UNSPECIFIED FOUNDATIO SITE 4389 UNSPEC LATE 01-07-2012 [place] [facility] EFF SERV CEREBRVASC FOUNDATIO DZ DUE CEREBRVASC DZ 62382 DEHYDRATION 12-01-2011 [facility] GERALDO ADDIE 82172 UNSPECIFIED 12-01-2011 [facility] ADDIE SITE UNSPECIFIED V0481 NEED 11-29-2011 PROPHYLACTI GERALDO C PHYSICIANS VACCINATION &INOCULATIO N FLU 0088 INTESTINAL 10-09-2011 INFECTION GERALDO DUE TO PHYSICIANS OTHER ORGANISM NEC 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 ADDIE 4011 ESSENTIAL 04-02-2011 HYPERTENSIO GERALDO N, BENIGN PHYSICIANS 73458 SHIGA 03-15-2011 INFECTIOUS TOXIN-PRODU DISEASE CING CONSULTAN ESCHERICHIA COLI 7907 BACTEREMIA 03-15-2011 INFECTIOUS DISEASE CONSULTAN 5758 OTHER 03-12-2011 RADIOLOGY SPECIFIED ASSOCIATES DISORDER OF PSC GALLBLADDER 88587 INF DUE OTH 03-10-2011 INFECTIOUS DISEASE GM-NEGATIVE CONSULTAN ORGANISMS CCE & UNS SITE 7813 LACK OF 03-09-2011 [facility] COORDINATIO AMBULANCE N V5861 LONG-TERM 03-09-2011 [facility] (CURRENT) GERALDO [place] 40033 GENERALIZED 02-24-2011 [place] [address] ESOPHAGEAL 02-24-2011 [place] [address] ATHEROSCLER 12-14-2010 [place] [facility] THLOPTHLOCCO TRI[place] FOOT & ART ANKLE CE EXTREMITIES UNSPEC 74920 NERVOUSNESS 12-12-2010 [facility] GERALDO ADDIE 5789 UNSPECIFIED 11-12-2010 [facility] OF [facility] GASTROINTES TINAL TRACT 11601 DYSPHAGIA 11-12-2010 [facility] UNSPECIFIED [facility]OENTER OLOGY[facility] 31994 OTHER 11-11-2010 [facility] ESOPHAGITIS [facility] OLOGYAS 13215 OTHER SPEC 11-11-2010 [facility] WITHOUT [place] MENTION HEMORRHAGE V0382 NEED PROPH 11-07-2010 VACCINATION [facility]OMERY [facility] ER PNEUMONE 2768 HYPOPOTASSE 11-06-2010 [place] [place] [address] OTHER ACUTE 11-06-2010 [facility] PAIN [facility] BLOOMERY ADDIE 26369 ATRIAL 09-29-2010 [facility] GER[facility] ADDIE 4289 UNSPECIFIED 09-29-2010 [facility] FAILURE 68638 THORACIC 09-29-2010 AORTIC [facility] BLOOMERY ECTASIA [facility] ER 7840 HEADACHE 09-29-2010 [facility] ER 7866 SWELLING, 09-29-2010 . 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 4149 UNSPECIFIED 07-15-2010 R[facility]IN[facility] CHRONIC [facility] ISCHEMIC HEART DISEASE 50370 CHRONIC 07-15-2010 R[facility]I SYSTOLIC [place] HEART FAILURE 93244 SEVERE 07-15-2010 [facility]I SEPSIS [facility] 5756 CHOLESTEROL 07-14-2010 [facility] OF RADIOLOGY GALLBLADDER ASSOCIAT 7892 SPLENOMEGAL 07-14-2010 [facility] Y RADIOLOGY ASSOCIAT 5963 DIVERTICULU 07-11-2010 [facility] OF RADIOLOGY BLADDER ASSOCIAT 0414 ESCHERICHIA 07-09-2010 [facility], COLI COLLECTIONS DIRECTOR INFECTION [facility] IN CCE & HOS UNS SITE 2865 HEMORRHAGIC 07-09-2010 JULIÁN ARAUZ D/O INTRINSIC CIRC ANTICOAG AB/INHIB 39648 AC MICHELLE 07-09-2010 [facility], EMBO & COLLECTIONS DIRECTOR THROMB [facility] UNSPEC DEEP HOS VES LOWER EXT 7993 UNSPECIFIED 07-09-2010 [facility], DEBILITY COLLECTIONS DIRECTOR [place] [facility] 45469 SEPSIS 07-09-2010 [facility], COLLECTIONS DIRECTOR [facility] 4478 OTHER 05-27-2010 [place] [facility] SPECIFIED SERV DISORDERS FOUNDATIO OF ARTERIES&AR TERIOLES 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 OLD 05-25-2010 [facility]OC[facility]PITAL INFARCTION 8470 NECK SPRAIN 04-18-2010 RINALDINI AND STRAIN [facility]ACE[facility] V1581 PERS HX 04-18-2010 R[facility]INI NONCOMPLIAN [place] CE W/MED TX PRS HAZARDS HLTH 486 PNEUMONIA, 04-07-2010 RIN[facility]DINI ORGANISM [place] UNSPECIFIED 4928 OTHER 03-24-2010 [facility] EMPHYSEMA RADIOLOGY ASSOCIAT 515 POSTINFLAMM 03-24-2010 [facility] ATORY RADIOLOGY PULMONARY ASSOCIAT FIBROSIS 03128 PAINFUL 03-24-2010 JULIÁN REGLA RESPIRATION 7864 ABNORMAL 03-22-2010 NEW SPUTUM [facility] MED CTR V1269 PERSONAL 03-22-2010 NEW HISTORY [facility]IZONS OTHER MED CTR DISEASES RESPIRATORY SYS 3961 MITRAL 02-14-2010 RINALDINI VALVE [place]ACE[place] STENOSIS&[place] [address] CLOSED 02-07-2010 [facility] FRACTURE OF ORTHOPAEDIC S PLC UNSPECIFIED PART OF FIBULA 8248 UNSPECIFIED 01-06-2010 [place] [facility] MEDICAL FRACTURE OF IMAGING ASS ANKLE 9054 LATE EFFECT 12-27-2009 [facility] OF HOSPITAL FRACTURE OF LOWER EXTREMITIES V5416 AFTERCARE 12-27-2009 [facility] TRAUMATIC FRACTURE LOWER LEG V674 TREATMENT 12-27-2009 [facility] HEALED RADIOLOGY FRACTURE ASSOCIAT FOLLOW-UP EXAMINATION 8242 CLOSED 12-20-2009 [facility] FRACTURE OF HOSPITAL LATERAL MALLEOLUS 4242 TRICUSPID 12-15-2009 [facility] SPEC DISORDERS SPEC NONRHEUMATI C 5363 GASTROPARES 12-15-2009 [facility] 7851 PALPITATION 12-15-2009 [facility] 50863 ABNORMAL 12-15-2009 NEW COAGULATION [facility] PROFILE MEDICALCENT ER 9190 ABRASION/FR 12-15-2009 NEW ICION BURN [facility]ORIZ[facility] OTH MX&UNS MEDICALCENT SITE W/O ER INF 52493 HEAD 12-15-2009 ACUTE CARE INJURY, BILLING [place] UNSPECIFIED LLC 9598 INJURY 12-15-2009 ACUTE CARE OTH&UNSPEC BILLING [place] OTH SPEC LLC SITES INCL MULTIPLE E8881 FALL 12-15-2009 NEW RESULTING HORIZONS IN STRIKING MEDICALCENT AGAINST ER OTHER OBJECT V5881 FITTING AND 12-15-2009 [facility] ADJUSTMENT RADIOLOGY OF INC VASCULAR CATHETER 05895 PAIN IN 12-14-2009 [facility] JOINT LIFE SQUAD PELVIC REGION AND THIGH 34876 PAIN IN 12-14-2009 [facility] JOINT, LIFE SQUAD ANKLE AND FOOT 7231 CERVICALGIA 12-14-2009 [facility] LIFE SQUAD 07880 OTHER 12-14-2009 [facility] INJURY OF RADIOLOGY OTHER SITES INC OF TRUNK 9593 INJURY 12-14-2009 [facility] OTHER&UNSPE RADIOLOGY CIFIED INC [facility]BOW [employer]&WRI ST 79486 OTHER 12-05-2009 [facility] HOSPITAL BEATS 7931 NONSPEC 11-24-2009 [facility] FIND RAD RADIOLOGY OTH EXAM ASSOCIAT BODY STRUCT LUNG FIELD 02245 THYROTOX 11-22-2009 RINALDINI W/O [place]ACE[place] GOITER/OTH CAUSE W/O CRISIS 5183 PULMONARY 11-22-2009 [facility] EOSINOPHILI RADIOLOGY A ASSOCIAT 55992 ACUTE 10-29-2009 [place] [facility] VENOUS EMBO SERV AND THROMB FOUNDATIO UPPER EXTREM UNS 86001 HEMIPL 10-21-2009 [facility] AFFECT [facility] UNSPEC SIDE [facility]OSP DUE CEREBRVASC DISEASE 59164 SWELLING OF 10-21-2009 [place] [facility] LIMB SERV FOUNDATIO V5873 AFTERCARE 10-21-2009 [facility] FOLLOWING [facility] SURGERY HOSP CIRC SYSTEM NEC 3940 MITRAL 10-19-2009 [place] [facility] STENOSIS SERV FOUNDATIO V4581 POSTSURGICA 10-15-2009 [place] [facility] L SERV AORTOCORONA FOUNDATIO RY BYPASS STATUS 4260 ATRIOVENTRI 10-14-2009 [facility] CULAR [facility] BLOCK, FOUNDATIO COMPLETE 514 PULMONARY 10-14-2009 [place] [facility] CONGESTION SERV AND FOUNDATIO HYPOSTASIS 79622 OTHER 10-14-2009 [place] [facility] PULMONARY SERV INSUFFICIEN FOUNDATIO CY NEC 71722 UNSPECIFIED 10-13-2009 [facility] SERV ATRIOVENTRI FOUNDATIO CULAR BLOCK 08320 ACUTE 10-13-2009 [place] [facility] RESPIRATORY SERV FAILURE FOUNDATIO 02410 MECH 10-13-2009 [place] [facility] COMPLICATIO SERV N DUE HEART FOUNDATIO VALVE PROSTHESIS V550 ATTENTION 10-12-2009 [facility] TO SERV TRACHEOSTOM FOUNDATIO Y 65658 OCCLUSION&S 10-10-2009 [place] [facility] TENOSIS SERV CAROTID FOUNDATIO ARTERY W/INFARCT 4449 EMBOLISM 10-10-2009 [facility] AND SERV THROMBOSIS FOUNDATIO OF UNSPECIFIED ARTERY V421 HEART 10-10-2009 [place] [facility] REPLACED BY SERV TRANSPLANT FOUNDATIO V7282 PRE-OPERATI 10-10-2009 [place] [facility] VE SERV RESPIRATORY FOUNDATIO EXAMINATION 2859 UNSPECIFIED 10-08-2009 [place] [facility] ANEMIA SERV FOUNDATIO V7284 UNSPECIFIED 10-08-2009 [place] [facility] SERV PRE-OPERATI FOUNDATIO VE EXAMINATION 5185 PULMONARY 10-07-2009 [facility] CY FOLLOW TRAUMA & SURGERY 12603 UNSPECIFIED 10-06-2009 [facility] SCHMIDT ARTHROPATHY SHOULDER REGION 38390 ACUT 09-28-2009 [facility] PYELONEPHRI LACE[facility] TIS W/O LES RENAL MEDULRY NECROS 7936 NONSPEC ABN 09-28-2009 [facility] FINDNG RAD RADIOLOGY & OTH EXAM ASSOCIAT ABDOMINAL AREA 3963 MITRAL 09-05-2009 [facility] INSUFF&AORT IC VALVE INSUFF 85341 UNSPECIFIED 08-08-2009 [facility] ARTERY [facility] OCCLUSION W/INFARCT V173 FAMILY 08-08-2009 [facility] ISCHEMIC HEART DISEASE 7030 INGROWING 07-07-2009 JERI SCHMIDT 11368 INF&INFLAM 06-23-2009 [facility] SERV CARD DEVICE FOUNDATIO IMPLANT&GRA FT 4299 UNSPECIFIED 06-22-2009 [facility] HEART LIFE SQUAD DISEASE 7856 ENLARGEMENT 06-22-2009 [facility] LYMPH SERV NODES FOUNDATIO 95200 OTHER 06-04-2009 [facility] NS DUE HEART VALVE PROSTHESIS E8781 ABNORM 06-04-2009 [facility] ARTIFICIAL INSURANCE LICENSING SUPERVISOR DEVICE IMPLNT 09918 CONTUSION 05-06-2009 [facility]IGH LACEY Corey 9961 [facility] COMP 05-06-2009 JENELLE SCHMIDTH LACEY Corey VASCULAR DEVICE IMPLANT&GRA FT 4536 VENOUS EMBO 05-02-2009 [facility] SUPERFICIAL ASSOCIATES VES LOWR PSC EXTREM 7469 UNSPECIFIED 05-02-2009 [facility] CONGENITAL LACEY Corey ANOMALY OF HEART 7822 LOCALIZED 05-02-2009 [facility] SWELLING MASS OR LUMP 9063 LATE EFFECT 05-02-2009 [facility] CONTUSION 69344 [facility] COMP 05-02-2009 [facility] UNSPEC CARD LACEY Core[place] DEVICE IMPLANT&[place] [address] HEMATOMA 05-01-2009 ACUTE [facility] COMPLICATIN [facility]ILL[facility] PROCEDURE NEC E8790 ABNORMAL 05-01-2009 NEW REACTION/[facility] MED CTR D/T CARDIAC CATH 57670 CONTUSION 04-26-2009 [facility] 09373 ACUT 04-24-2009 [facility] [place] [facility] SITE EPIS CARE UNS 78874 OTH 04-23-2009 NEW NONSPECIFIC HORIZONS ABNORM CV MED CTR SYSTEM FUNCTION STUDY 4240 MITRAL 09-13-2008 TAMIALDBOWEN, VALVE CHANA DISORDERS 3674 PRESBYOPIA 09-08-2008 [facility] MAYO V641 SURG/OTH 08-25-2008 [facility] PROC NOT [facility] DONE INC BECAUSE CONTRAINDIC ATION 7859 OTHER 07-16-2008 [facility]MPTOM[facility] INVOLVING CARDIOVASCU LAR SYSTEM 4439 UNSPECIFIED 06-23-2008 LA[facility], PERIPHERAL [place]YS[place] V VASCULAR DISEASE 7038 OTHER 06-23-2008 LAUSE, SPECIFIED ALLYS[place] V DISEASE OF NAIL 2800 IRON 2008 [facility] ANEMIA SECONDARY TO BLOOD LOSS 7830 ANOREXIA 2008 [facility] 2693 MINERAL 11-05-2007 [facility] NOT ELSEWHERE CLASSIFIED 4550 INTERNAL 08-25-2007 [facility] HEMORR[facility] SERV WITHOUT FOUNDATIO MENTION COMP 71251 ACUT DUODEN 08-25-2007 [facility] U[facility] W/PERF W/O FOUNDATIO MENTION OBSTRUCTION 5781 BLOOD IN 08-25-2007 [facility] 7921 NONSPECIFIC 08-25-2007 [place] [facility] ABNORMAL SERV FINDING IN FOUNDATIO STOOL CONTENTS 9971 CARDIAC 08-25-2007 [facility]PLIC[facility] NEC INC 7937 NONSPC ABN [facility] O[facility] EXM [facility] [place] 41520 MAMMOGRAPHI 07-22-2007 [facility] MICROCALCIF ASSOCIATES ICATION PSC V7612 OTHER 07-22-[facility] SCREEN[facility] RADIOLOGY MAMMOGRAM ASSOCIATES PSC 3319 UNSPECIFIED 07-21-2007[facility] CEREBRAL RADIOLOGY DEGENERATIO ASSOCIATES N PSC I26.99 OTHER PULMONARY EMBOLISM WITHOUT ACUTE COR PULMONALE R94.31 ABNORMAL ELECTROCARD IOGRAM [ECG] [EKG] Allergies, Adverse Reactions, Alerts Clinical Alert Notifications Alert Member has >/= 3 hosp admit & >/= 1 ED visit in 365 days Medications Na ND Rx Da Fi Fi Am Da Di Ph RX Ph St me C No te ll ll ou ys ag ar # ys at rm s nt no ma ic us Or Da si cy ia de te s n re d LO 45 01 06 5 30 30 GR 22 WI Ac RA 80 -1 -2 0. AN 44 LL ti TA 20 8- 3- 00 T 42 OB ve DI 65 20 20 0 CO 9 Y NE 08 17 17 UN AZ 7 TY CH [address] WALKER MG UG S TA IN BL C ET LO 45 11 03 2 30 30 GR 22 MA Ac RA 80 -2 -0 0. AN 34 DD ti TA 20 2- 8- 00 T 43 OX ve DI 65 20 20 0 CO 4 NE 08 16 17 UN JE 7 TY NN [address] SMITH MG ANGELIQUE S S TA IN BL C ET LO 45 11 12 2 30 30 GR 22 MA Ac RA 80 -2 -3 0. AN 34 DD ti TA 20 2- 0- 00 T 43 OX ve DI 65 20 20 0 CO 4 NE 08 16 16 UN JE 7 TY NN [address] SMITH MG UG S S TA IN BL C ET LO 00 11 11 2 30 30 GR 22 MA Ac RA 78 -2 -2 0. AN 34 DD ti TA 15 2- 2- 00 T 43 OX ve DI 07 20 20 0 CO 4 NE 70 16 16 UN JE 1 TY NN [address] SARAH MERINO S S TA IN BL C ET TU 00 10 10 0 11 8 GR 22 MA Ac SS 11 -3 -3 80 AN 30 DD ti IN 30 1- 1- .0 T 30 OX ve 35 20 20 00 CO 1 DM 92 16 16 UN JE 6 TY NN CO IF ANGELIQUE SMITH H ANGELIQUE S SY S RU IN P C DO 00 01 01 4 60 30 GR 21 WI Ac CU 53 -0 -0 0. AN 09 LL ti SA 63 6- 6- 00 T 83 OB ve TE 75 20 20 0 CO 5 Y 61 15 15 UN AZ SO 0 TY CH DI EL UM DR HERNANDEZ 10 S 0 IN MG C CA PS UL E DO 00 02 12 5 60 30 GR 20 WI Ac CU 53 -2 -0 0. AN 55 LL ti SA 63 6- 3- 00 T 20 OB ve TE 75 20 20 0 CO 3 Y 61 14 14 UN AZ SO 0 TY CH DI EL UM DR HERNANDEZ 10 S 0 IN MG C CA PS UL E DO 00 02 07 5 60 30 GR 20 WI Ac CU 53 -2 -2 0. AN 55 LL ti SA 63 6- 1- 00 T 20 OB ve TE 75 20 20 0 CO 3 Y 61 14 14 UN AZ SO 0 TY CH DI EL UM DR LE UG 10 S 0 IN MG C CA PS UL E 00 03 07 4 30 30 GR 20 WI Ac PI 90 -2 -0 0. AN 60 LL ti R- 47 8- 8- 00 T 87 OB ve LO 70 20 20 0 CO 1 Y W 41 14 14 UN AZ EC 8 TY CH EL 81 DR LE UG MG S IN TA C BL ET 00 02 06 5 60 30 GR 20 WI Ac 18 -2 -1 0. AN 55 LL ti 24 6- 6- 00 T 19 OB ve 14 20 20 0 CO 1 Y 12 14 14 UN AZ [address] LE UG S IN C 00 03 06 4 30 30 GR 20 WI Ac PI 90 -2 -0 0. AN 60 LL ti R- 47 8- 3- 00 T 87 OB ve LO 70 20 20 0 CO 1 Y W 41 14 14 UN AZ EC 8 TY CH EL 81 DR LE UG MG S IN TA C BL ET 00 02 05 5 60 30 GR 20 WI Ac 18 -2 -0 0. AN 55 LL ti 24 6- - T 19 OB ve 14 20 20 0 CO 1 Y 12 14 14 UN AZ [address] LE UG S IN C DO 00 02 04 5 60 30 GR 20 WI Ac CU 53 -2 -2 0. AN 55 LL ti SA 63 6- 4- 00 T 20 OB ve TE 75 20 20 0 CO 3 Y 61 14 14 UN AZ SO 0 TY CH DI EL UM DR LE UG 10 S 0 IN MG C CA PS UL E 00 03 04 4 30 30 GR 20 WI Ac PI 90 -2 -2 0. AN 60 LL ti R- 47 8- 4- 00 T 87 OB ve LO 70 20 20 0 CO 1 Y W 41 14 14 UN AZ EC 8 TY CH EL 81 DR LE UG MG S IN TA C BL ET 00 02 03 5 60 30 GR 20 WI Ac 18 -2 -2 0. AN 55 LL ti 24 6- 8- 00 T 19 OB ve 14 20 20 0 CO 1 Y 12 14 14 UN AZ [address] LE UG S IN C 00 03 03 4 30 30 GR 20 WI Ac PI 90 -2 -2 0. AN 60 LL ti R- 47 8- 8- 00 T 87 OB ve LO 70 20 20 0 CO 1 Y W 41 14 14 UN AZ EC 8 TY CH EL 81 DR HERNANDEZ MG S IN TA C BL ET DO 00 02 02 5 60 30 GR 20 WI Ac CU 53 -2 -2 0. AN 55 LL ti SA 63 6- 6- 00 T 20 OB ve TE 75 20 20 0 CO 3 Y 61 14 14 UN AZ SO 0 TY CH DI EL UM DR HERNANDEZ 10 S 0 IN MG C CA PS UL E 00 02 02 0 60 30 GR 20 TH Ac 18 -1 -1 0. AN 52 RE ti 24 3- 3- 00 T 91 LK ve 14 20 20 0 CO 4 EL 12 14 14 UN D [address] MAURO MERINO LL S IA IN [facility] 00 02 01 11 30 30 GR 19 TH Ac PI 90 -0 -0 0. AN 94 RE ti R- 47 5- 3- 00 T 47 LK ve LO 70 20 20 0 CO 0 EL W 41 13 14 UN D EC [address] T[address] MAURO MERINO LL MG S IA IN [facility] C F BL ET 00 01 01 0 60 30 GR 20 WI Ac 18 -0 -0 0. AN 45 LL ti 24 3- 3- 00 T 88 OB ve 14 20 20 0 CO 3 Y 12 14 14 UN AZ [address] HERNANDEZ S IN C DO 00 01 01 0 60 30 GR 20 WI Ac CU 53 -0 -0 0. AN 45 LL ti SA 63 3- 3- 00 T 88 OB ve TE 75 20 20 0 CO 2 Y 61 14 14 UN AZ SO 0 TY CH DI EL UM DR HERNANDEZ 10 S 0 IN MG C CA PS UL E 00 02 12 11 30 30 GR 19 TH Ac PI 90 -0 -0 0. AN 94 RE ti R- 47 5- 2- 00 T 47 LK ve LO 70 20 20 0 CO 0 EL W 41 13 13 UN D EC [address] MAURO MERINO LL MG S IA IN TA C F BL ET 00 06 12 5 60 30 GR 20 WI Ac 18 -1 -0 0. AN 13 LL ti 24 0- 2- 00 T 44 OB ve 14 20 20 0 CO 8 Y 12 13 13 UN AZ [address] WALKER UG S IN C DO 00 06 12 5 60 30 GR 20 WI Ac CU 53 -1 -0 0. AN 13 LL ti SA 63 0- 2- 00 T 43 OB ve TE 75 20 20 0 CO 1 Y 61 13 13 UN AZ SO 0 TY CH DI EL UM DR WALKER UG 10 S 0 IN MG C CA PS UL E 00 02 11 11 30 30 GR 19 TH Ac PI 90 -0 -0 0. AN 94 RE ti R- 47 5- 4- 00 T 47 LK ve LO 70 20 20 0 CO 0 EL W 41 13 13 UN D EC [address] T[address] MAURO UG LL MG S IA IN TA C F BL ET 00 06 11 5 60 30 GR 20 WI Ac 18 -1 -0 0. AN 13 LL ti 24 0- 4- 00 T 44 OB ve 14 20 20 0 CO 8 Y 12 13 13 UN AZ [address] WALKER UG S IN C DO 00 06 11 5 60 30 GR 20 WI Ac CU 53 -1 -0 0. AN 13 LL ti SA 63 0- 4- 00 T 43 OB ve TE 75 20 20 0 CO 1 Y 61 13 13 UN AZ SO 0 TY CH DI EL UM DR WALKER UG 10 S 0 IN MG C CA PS UL E 00 02 10 11 30 30 GR 19 TH Ac PI 90 -0 -0 0. AN 94 RE ti R- 47 5- 7- 00 T 47 LK ve LO 70 20 20 0 CO 0 EL W 41 13 13 UN D EC [address] MAURO MERINO LL MG S IA IN [facility] C F BL ET DO 00 06 10 5 60 30 GR 20 WI Ac CU 53 -1 -0 0. AN 13 LL ti SA 63 0- 7- 00 T 43 OB ve TE 75 20 20 0 CO 1 Y 61 13 13 UN AZ SO 0 TY CH DI EL UM DR WALKER UG 10 S 0 IN MG C CA PS UL E 00 06 10 5 60 30 GR 20 WI Ac 18 -1 -0 0. AN 13 LL ti 24 0- 7- 00 T 44 OB ve 14 20 20 0 CO 8 Y 12 13 13 UN AZ [address] WALKER UG S IN C 00 02 09 11 30 30 GR 19 TH Ac PI 90 -0 -0 0. AN 94 RE ti R- 47 5- 9- 00 T 47 LK ve LO 70 20 20 0 CO 0 EL W 41 13 13 UN D EC [address] MAURO MERINO LL MG S IA IN TA C F BL ET 00 02 08 11 30 30 GR 19 TH Ac PI 90 -0 -1 0. AN 94 RE ti R- 47 5- 2- 00 T 47 LK ve LO 70 20 20 0 CO 0 EL W 41 13 13 UN D EC [address] MAURO MERINO LL MG S IA IN M TA C F BL ET 00 06 08 5 60 30 GR 20 WI Ac 18 -1 -1 0. AN 13 LL ti 24 0- 2- 00 T 44 OB ve 14 20 20 0 CO 8 Y 12 13 13 UN AZ [address] HERNANDEZ S IN C DO 00 06 08 5 60 30 GR 20 WI Ac CU 53 -1 -1 0. AN 13 LL ti SA 63 0- 2- 00 T 43 OB ve TE 75 20 20 0 CO 1 Y 61 13 13 UN AZ SO 0 TY CH DI EL UM DR HERNANDEZ 10 S 0 IN MG C CA PS UL E 00 06 07 5 60 30 GR 20 WI Ac 18 -1 -0 0. AN 13 LL ti 24 0- 9- 00 T 44 OB ve 14 20 20 0 CO 8 Y 12 13 13 UN AZ [address] HERNANDEZ S IN C DO 00 06 07 5 60 30 GR 20 WI Ac CU 53 -1 -0 0. AN 13 LL ti SA 63 0- 9- 00 T 43 OB ve TE 75 20 20 0 CO 1 Y 61 13 13 UN AZ SO 0 TY CH DI EL UM DR HERNANDEZ 10 S 0 IN MG C CA PS UL E 00 02 07 11 30 30 GR 19 TH Ac PI 90 -0 -0 0. AN 94 RE ti R- 47 5- 9- 00 T 47 LK ve LO 70 20 20 0 CO 0 EL W 41 13 13 UN D EC [address] MAURO MERINO LL MG S IA IN M TA C F BL ET DO 00 06 06 5 60 30 GR 20 WI Ac CU 53 -1 -1 0. AN 13 LL ti SA 63 0- 0- 00 T 43 OB ve TE 75 20 20 0 CO 1 Y 61 13 13 UN AZ SO 0 TY CH DI EL UM DR HERNANDEZ 10 S 0 IN MG C CA PS UL E 00 06 06 5 60 30 GR 20 WI Ac 18 -1 -1 0. AN 13 LL ti 24 0- 0- 00 T 44 OB ve 14 20 20 0 CO 8 Y 12 13 13 UN AZ [address] HERNANDEZ S IN C 00 02 06 11 30 30 GR 19 TH Ac PI 90 -0 -0 0. AN 94 RE ti R- 47 5- 4- 00 T 47 LK ve LO 70 20 20 0 CO 0 EL W 41 13 13 UN D EC [address] WADE UG LL MG S IA IN [facility] BL ET 00 05 05 0 60 30 GR 20 TH Ac 18 -0 -0 0. AN 08 RE ti 24 6- 6- 00 T 31 LK ve 14 20 20 0 CO 1 EL 12 13 13 UN D [address] MAURO MERINO LL S IA IN [facility] 00 02 05 11 30 30 GR 19 TH Ac PI 90 -0 -0 0. AN 94 RE ti R- 47 5- 4- 00 T 47 LK ve LO 70 20 20 0 CO 0 EL W 41 13 13 UN D EC [address] MAURO MERINO LL MG S IA IN [facility] BL ET 00 04 04 0 60 30 GR 20 TH Ac 18 -0 -0 0. AN 04 RE ti 24 9- 9- 00 T 54 LK ve 14 20 20 0 CO 6 EL 12 13 13 UN D [address] MAURO MERINO LL S IA IN [facility] 00 02 04 11 30 30 GR 19 TH Ac PI 90 -0 -0 0. AN 94 RE ti R- 47 5- 2- 00 T 47 LK ve LO 70 20 20 0 CO 0 EL W 41 13 13 UN D EC [address] MAURO MERINO LL MG S IA [facility] BL ET 00 10 03 4 60 30 GR 19 TH Ac 18 -2 -1 0. AN 77 RE ti 24 3- 1- 00 T 80 LK ve 14 20 20 0 CO 8 EL 12 12 13 UN D [address] MAURO MERINO LL S IA IN [facility] 00 02 02 11 30 30 GR 19 TH Ac PI 90 -0 -0 0. AN 94 RE ti R- 47 5- 5- 00 T 47 LK ve LO 70 20 20 0 CO 0 EL W 41 13 13 UN D EC [address] MAURO MERINO LL MG S IA [facility] BL ET 00 10 02 4 60 30 GR 19 TH Ac 18 -2 -0 0. AN 77 RE ti 24 3- 5- 00 T 80 LK ve 14 20 20 0 CO 8 EL 12 12 13 UN D [address] WADE UG LL S IA IN [facility] 00 10 12 4 60 30 GR 19 TH Ac 18 -2 -2 0. AN 77 RE ti 24 3- 3- 00 T 80 LK ve 14 20 20 0 CO 8 EL 12 12 12 UN D [address] WI UG LL S IA IN C F 00 10 11 4 60 30 GR 19 TH Ac 18 -2 -2 0. AN 77 RE ti 24 T 80 LK ve 14 20 20 0 CO 8 EL 12 12 12 UN D [address] WI UG LL S IA IN C F 00 10 10 4 60 30 GR 19 TH Ac 18 -2 -2 0. AN 77 RE ti 24 T 80 LK ve 14 20 20 0 CO 8 EL 12 12 12 UN D [address] WI UG LL S IA IN [facility] 00 03 10 3 10 10 GR 19 TH Ac PI 90 -1 -2 00 0 AN 43 RE ti R- 47 3- 0- .0 T 02 LK ve LO 70 20 20 00 CO 5 EL W 41 12 12 UN D EC [address] MAURO UG LL MG S IA [facility] BL ET BE 67 09 09 0 20 7 GR 19 TH Ac NZ 87 -0 -0 0. AN 70 RE ti ON 70 T 09 LK ve AT 10 20 20 0 CO 5 EL AT 60 12 12 UN D E 1 TY II [address] MAURO MG UG LL S IA CA IN [facility] C F UL E 00 03 09 5 60 30 GR 19 TH Ac 18 -1 -0 0. AN 43 RE ti 24 T 03 LK ve 14 20 20 0 CO 7 EL 12 12 12 UN D [address] WI UG LL S IA IN [facility] F 00 03 08 5 60 30 GR 19 TH Ac 18 -1 -0 0. AN 43 RE ti 24 T 03 LK ve 14 20 20 0 CO 7 EL 12 12 12 UN D [address] WI UG LL S IA IN C F 00 03 07 5 60 30 GR 19 TH Ac 18 -1 -0 0. AN 43 RE ti 24 00 T 03 LK ve 14 20 20 0 CO 7 EL 12 12 12 UN D [address] WI UG LL S IA IN [facility] F 00 03 05 5 60 30 GR 19 TH Ac 18 -1 -2 0. AN 43 RE ti 24 T 03 LK ve 14 20 20 0 CO 7 EL 12 12 12 UN D [address] WI UG LL S IA IN [facility] 00 03 04 3 10 10 GR 19 TH Ac PI 90 -1 -2 00 0 AN 43 RE ti R- 47 3- 6- .0 T 02 LK ve LO 70 20 20 00 CO 5 EL W 41 12 12 UN D EC [address] MAURO MERINO LL MG S IA [facility] BL ET 00 03 04 5 60 30 GR 19 TH Ac 18 -1 -2 0. AN 43 RE ti 24 3- 6- 00 T 03 LK ve 14 20 20 0 CO 7 EL 12 12 12 UN D [address] MAURO MERINO LL S IA IN [facility] 00 03 03 5 60 0 GR 19 TH Ac 18 -1 -2 0. AN 43 RE ti 24 3- 8- 00 T 03 LK ve 14 20 20 0 CO 7 EL 12 12 12 UN D [address] MAURO MERINO LL S IA IN [facility] 00 09 02 5 60 0 GR 19 TH Ac 18 -0 -2 0. AN 09 RE ti 24 7- 0- 00 T 34 LK ve 14 20 20 0 CO 3 EL 12 11 12 UN D [address] MAURO MERINO LL S IA IN [facility] 00 09 01 5 60 0 GR 19 TH Ac 18 -0 -0 0. AN 09 RE ti 24 7- 4- 00 T 34 LK ve 14 20 20 0 CO 3 EL 12 11 12 UN D [address] MAURO MERINO LL S IA IN [facility] 00 12 12 2 10 10 GR 19 TH Ac PI 90 -2 -2 0. 0 AN 28 RE ti R- 47 1- 1- 00 T 24 LK ve LO 70 20 20 0 CO 5 EL W 41 11 11 UN D EC [address] MAURO MANRIQUE MG S IA IN [facility] BL [facility] 00 09 12 5 60 30 GR 19 TH Ac 18 -0 -0 .0 AN 09 RE ti 24 7- 5- 00 T 34 LK ve 14 20 20 CO 3 EL 12 11 11 UN D [address] MAURO MERINO LL S IA IN [facility] 00 05 11 1 30 30 GR 18 GA Ac PI 90 -1 -0 .0 AN 90 NT ti R- 47 1- 2- 00 T 52 LE ve LO 70 20 20 CO 1 Y W 41 11 11 UN JA EC 8 TY NA R 81 DR MERINO MG S IN [facility] ET 00 05 10 1 30 30 GR 18 GA Ac PI 90 -1 -0 .0 AN 90 NT ti R- 47 1- 4- 00 T 52 LE ve LO 70 20 20 CO 1 Y W 41 11 11 UN JA EC 8 TY NA R 81 DR UG MG S IN TA C BL ET 00 05 09 1 30 30 GR 18 GA Ac PI 90 -1 -0 .0 AN 90 NT ti R- 47 1- 5- 00 T 52 LE ve LO 70 20 20 CO 1 Y W 41 11 11 UN JA EC 8 TY NA R 81 DR UG MG S IN TA C BL ET 00 05 08 1 30 30 GR 18 GA Ac PI 90 -1 -0 .0 AN 90 NT ti R- 47 1- 1- 00 T 52 LE ve LO 70 20 20 CO 1 Y W 41 11 11 UN JA EC 8 TY NA R 81 DR UG MG S IN TA C BL ET LO 00 07 07 0 20 7 GR 19 CO Ac RA 59 -1 -1 .0 AN 01 NN ti ZE 10 T 09 EL ve PA 24 20 20 CO 6 LY M 00 11 11 UN 0. 5 TY [address] N UG D TA S BL IN ET C 00 05 06 1 30 30 GR 18 GA Ac PI 90 -1 -3 .0 AN 90 NT ti R- 47 1- 0- 00 T 52 LE ve LO 70 20 20 CO 1 Y W 41 11 11 UN JA EC 8 TY NA R 81 DR UG MG S IN TA C BL ET 00 05 05 1 30 30 GR 18 GA Ac PI 90 -1 -3 .0 AN 90 NT ti R- 47 1- 1- 00 T 52 LE ve LO 70 20 20 CO 1 Y W 41 11 11 UN JA EC 8 TY NA R 81 DR UG MG S IN TA C BL ET 00 05 05 1 18 90 GR 18 GA Ac 18 -1 -1 0. AN 90 NT ti 24 1- 1- 00 T 54 LE ve 14 20 20 0 CO 0 Y 12 11 11 UN JA [address] UG S IN C 00 04 04 2 30 30 GR 18 No Ac PI 90 -1 -1 .0 AN 86 t ti R- 47 9- 9- 00 T 75 Av ve LO 70 20 20 CO 2 ai W 41 11 11 UN la EC 8 TY bl e 81 DR UG MG S IN TA C BL ET 00 03 03 0 30 30 GR 18 No Ac PI 90 -0 -0 .0 AN 79 t ti R- 47 7- 7- 00 T 16 Av ve LO 70 20 20 CO 1 ai W 41 11 11 UN la EC 8 TY bl e 81 DR UG MG S IN TA C BL ET 00 10 02 3 30 30 GR 18 No Ac PI 90 -2 -0 .0 AN 55 t ti R- 47 6- 3- 00 T 88 Av ve LO 70 20 20 CO 7 ai W 41 10 11 UN la EC 8 TY bl e 81 DR UG MG S IN TA C BL ET 00 10 02 3 60 30 GR 18 No Ac 18 -2 -0 .0 AN 55 t ti 24 6- 3- 00 T 89 Av ve 14 20 20 CO 0 ai 12 10 11 UN la [address] UG S IN C 00 10 12 3 30 30 GR 18 No Ac PI 90 -2 -3 .0 AN 55 t ti R- 47 6- 0- 00 T 88 Av ve LO 70 20 20 CO 7 ai W 41 10 10 UN la EC 8 TY bl e 81 DR UG MG S IN TA C BL ET 00 10 12 3 60 30 GR 18 No Ac 18 -2 -3 .0 AN 55 t ti 24 6- 0- 00 T 89 Av ve 14 20 20 CO 0 ai 12 10 10 UN la [address] UG S IN C 00 10 12 3 60 30 GR 18 No Ac 18 -2 -0 .0 AN 55 t ti 24 6- 1- 00 T 89 Av ve 14 20 20 CO 0 ai 12 10 10 UN la [address] UG S IN C 00 10 12 3 30 30 GR 18 No Ac PI 90 -2 -0 .0 AN 55 t ti R- 47 6- 1- 00 T 88 Av ve LO 70 20 20 CO 7 ai W 41 10 10 UN la EC 8 TY bl e 81 DR UG MG S IN TA C BL ET 00 10 10 3 30 30 GR 18 No Ac PI 90 -2 -2 .0 AN 55 t ti R- 47 6- 6- 00 T 88 Av ve LO 70 20 20 CO 7 ai W 41 10 10 UN la EC 8 TY bl e 81 DR UG MG S IN TA C BL ET 00 10 10 3 60 30 GR 18 No Ac 18 -2 -2 .0 AN 55 t ti 24 6- 6- 00 T 89 Av ve 14 20 20 CO 0 ai 12 10 10 UN la [address] UG S IN C CA 00 10 10 3 16 16 ME 49 RI Ac LC 90 -1 -1 .0 D 47 NA ti IU 43 2- 2- 00 CA 94 LD ve M 23 20 20 RE 8 IN 60 39 10 10 I 0- 2 PH AN AR A T MA M D3 CY 40 LL 0 C TA BL ET 63 10 10 3 15 15 ME 49 RI Ac PI 73 -0 -0 .0 D 36 NA ti RI 90 7- 7- 00 CA 60 LD ve N 43 20 20 RE 0 IN 81 40 10 10 I 1 PH AN MG AR A MA M CH CY EW AB LL LE C TA BL ET MA 00 10 10 3 12 2 ME 49 RI Ac PA 90 -0 -0 .0 D 36 NA ti P 41 7- 7- 00 CA 96 LD ve 50 98 20 20 RE 9 IN 0 86 10 10 I MG 1 PH AN AR A TA MA M BL CY ET LL C 00 09 12 00 94 30 GR 17 No Ac 12 -1 -1 6. AN 85 t ti 10 8 7- 00 T 73 Av ve 65 20 20 0 CO 0 ai 91 09 09 UN la [address] MERINO SO 00 09 10 00 94 30 GR 17 No Ac RB 60 -1 -0 6. AN 85 t ti IT 30 8- 8- 00 T 73 Av ve OL 90 20 20 0 CO 0 ai 05 09 09 UN la 70 8 TY bl % e SO DR POLA MERINO TI ON 00 04 04 00 30 30 D 11 No Ac 24 -0 -2 .0 & 71 t ti 50 8- 3- 00 R 13 Av ve 08 20 20 PH 6 ai 01 09 09 AR la 1 MA bl CA e RE FI 00 10 04 01 30 30 D 10 No Ac SH 90 -2 -2 .0 & 68 t ti 44 6- 3- 00 R 84 Av ve OI 04 20 20 PH 0 ai L 36 08 09 AR la 1, 0 MA bl 00 CA e 0 RE MG CA PS UL E 00 10 04 05 30 30 D 10 No Ac 18 -2 -0 .0 & 64 t ti 21 2- 9- 00 R 85 Av ve 06 20 20 PH 9 ai 10 08 09 AR la 5 MA bl CA e RE 00 10 03 05 30 30 D 10 No Ac 24 -2 -2 .0 & 64 t ti 50 2- 6- 00 R 91 Av ve 08 20 20 PH 0 ai 01 08 09 AR la 1 MA bl CA e RE CE 00 11 03 04 30 30 D 10 No Ac RT 90 -1 -2 .0 & 83 t ti AV 42 4- 6- 00 R 07 Av ve IT 64 20 20 PH 9 ai E- 11 08 09 AR la AN 3 MA bl TI CA e OX RE ID AN T TA BL ET 00 10 03 04 30 30 D 10 No Ac 18 -2 -1 .0 & 64 t ti 21 2- 2- 00 R 85 Av ve 06 20 20 PH 9 ai 10 08 09 AR la 5 MA bl CA e RE FI 00 10 03 00 30 30 D 10 No Ac SH 90 -2 -1 .0 & 68 t ti 44 6- 2- 00 R 84 Av ve OI 04 20 20 PH 0 ai L 36 08 09 AR la 1, 0 MA bl 00 CA e 0 RE MG CA PS UL E 00 02 02 00 47 15 D 11 No Ac 57 -1 -2 3. & 34 t ti 40 0- 6- 00 R 00 Av ve 16 20 20 0 PH 2 ai 81 09 09 AR la 6 MA bl CA e RE 00 10 02 04 30 30 D 10 No Ac 24 -2 -2 .0 & 64 t ti 50 2- 6- 00 R 91 Av ve 08 20 20 PH 0 ai 01 08 09 AR la 1 MA bl CA e RE CE 00 11 02 03 30 30 D 10 No Ac RT 90 -1 -2 .0 & 83 t ti AV 42 4- 6- 00 R 07 Av ve IT 64 20 20 PH 9 ai E- 11 08 09 AR la AN 3 MA bl TI CA e OX RE ID AN T TA BL ET 00 10 02 03 30 30 D 10 No Ac 18 -2 -1 .0 & 64 t ti 21 2- 2- 00 R 85 Av ve 06 20 20 PH 9 ai 10 08 09 AR la 5 MA bl CA e RE 00 02 02 00 30 5 D 11 No Ac 18 -0 -1 .0 & 30 t ti 21 5- 2- 00 R 99 Av ve 83 20 20 PH 4 ai 21 09 09 AR la 0 MA bl CA e RE 00 10 01 03 30 30 D 10 No Ac 24 -2 -3 .0 & 64 t ti 50 2- 0- 00 R 91 Av ve 08 20 20 PH 0 ai 01 08 09 AR la 1 MA bl CA e RE 00 11 01 02 30 30 D 10 No Ac 18 -1 -3 .0 & 83 t ti 24 4- 0- 00 R 07 Av ve 16 20 20 PH 9 ai 21 08 09 AR la 0 MA bl CA e RE 00 10 01 02 30 30 D 10 No Ac 18 -2 -1 .0 & 64 t ti 21 2- 5- 00 R 85 Av ve 06 20 20 PH 9 ai 10 08 09 AR la 5 MA bl CA e RE 00 12 01 00 3. 3 D 11 No Ac 18 -1 -0 00 & 04 t ti 21 9- 1- 0 R 53 Av ve 06 20 20 PH 5 ai 10 08 09 AR la 5 MA bl CA e RE 00 12 01 00 2. 3 D 11 No Ac 18 -1 -0 00 & 04 t ti 20 9- 1- 0 R 53 Av ve 44 20 20 PH 4 ai 41 08 09 AR la 0 MA bl CA e RE 00 10 01 02 32 32 D 10 No Ac 24 -2 -0 .0 & 64 t ti 50 2- 1- 00 R 91 Av ve 08 20 20 PH 0 ai 01 08 09 AR la 1 MA bl CA e RE 00 12 01 00 4. 4 D 11 No Ac 18 -1 -0 00 & 02 t ti 20 7- 1- 0 R 76 Av ve 44 20 20 PH 2 ai 41 08 09 AR la 0 MA bl CA e RE 00 11 01 01 33 33 D 10 No Ac 18 -1 -0 .0 & 83 t ti 24 4- 1- 00 R 07 Av ve 16 20 20 PH 9 ai 21 08 09 AR la 0 MA bl CA e RE 00 11 12 01 60 30 D 10 No Ac 59 -0 -1 .0 & 75 t ti 10 4- 8- 00 R 61 Av ve 83 20 20 PH 8 ai 92 08 08 AR la 5 MA bl CA e RE ZE 66 10 12 02 30 30 D 10 No Ac TI 58 -0 -1 .0 & 51 t ti A 20 9- 8- 00 R 27 Av ve 10 41 20 20 PH 5 ai 45 08 08 AR la MG 4 MA bl CA e TA RE BL ET 00 10 12 02 30 30 D 10 No Ac 22 -2 -1 .0 & 63 t ti 82 1- 8- 00 R 74 Av ve 57 20 20 PH 6 ai 70 08 08 AR la 9 MA bl CA e RE 00 12 12 00 7. 7 D 10 No Ac 18 -0 -1 00 & 98 t ti 20 9- 8- 0 R 13 Av ve 44 20 20 PH 0 ai 41 08 08 AR la 0 MA bl CA e RE RI 50 12 12 00 60 30 D 10 No Ac SP 45 -0 -1 .0 & 96 t ti ER 80 6- 8- 00 R 69 Av ve DA 30 20 20 PH 5 ai L 00 08 08 AR la 1 1 MA bl MG CA e RE TA BL ET GE 00 10 12 02 30 30 D 10 No Ac MF 09 -0 -1 .0 & 51 t ti IB 30 9- 8- 00 R 80 Av ve RO 67 20 20 PH 6 ai ZI 00 08 08 AR la L 5 MA bl 60 CA e 0 RE MG TA BL ET HY 00 12 12 00 90 30 D [address] 18 -0 -1 .0 & 96 t ti OX 50 5- 8- 00 R 17 Av ve YZ 61 20 20 PH 6 ai IN 30 08 08 AR la E 1 MA bl PA CA e M RE 25 MG CA P 00 11 12 00 30 30 D 10 No Ac 09 -2 -0 .0 & 87 t ti 37 1- 4- 00 R 93 Av ve 17 20 20 PH 1 ai 61 08 08 AR la 0 MA bl CA e RE OX 62 10 12 00 7. 7 D 10 No Ac CA 75 -1 -0 00 & 55 t ti RB 60 3- 4- 0 R 40 Av ve AZ 18 20 20 PH 3 ai EP 41 08 08 AR la IN 8 MA bl E CA e 30 RE 0 MG TA BL ET 00 10 12 01 32 32 D 10 No Ac 18 -2 -0 .0 & 64 t ti 21 2- 4- 00 R 85 Av ve 06 20 20 PH 9 ai 10 08 08 AR la 5 MA bl CA e RE CE 00 10 12 01 30 30 D 10 No Ac LE 02 -3 -0 .0 & 73 t ti BR 51 1- 4- 00 R 45 Av ve EX 52 20 20 PH 9 ai 53 08 08 AR la 20 1 MA bl 0 CA e MG RE CA PS UL E 00 10 12 01 30 30 D 10 No Ac 24 -2 -0 .0 & 64 t ti 50 2- 4- 00 R 91 Av ve 08 20 20 PH 0 ai 01 08 08 AR la 1 MA bl CA e RE 00 11 12 00 2. 2 D 10 No Ac 17 -1 -0 00 & 84 t ti 30 7- 4- 0 R 74 Av ve 24 20 20 PH 4 ai 95 08 08 AR la 6 MA bl CA e RE 00 11 12 00 4. 2 D 10 No Ac 59 -1 -0 00 & 84 t ti 10 7- 4- 0 R 73 Av ve 83 20 20 PH 5 ai 92 08 08 AR la 5 MA bl CA e RE 00 11 12 00 2. 2 D 10 No Ac 22 -1 -0 00 & 84 t ti 82 7- 4- 0 R 73 Av ve 57 20 20 PH 9 ai 70 08 08 AR la 9 MA bl CA e RE 00 10 12 01 30 30 D 10 No Ac 17 -3 -0 .0 & 72 t ti 30 0- 4- 00 R 32 Av ve 24 20 20 PH 0 ai 95 08 08 AR la 6 MA bl CA e RE 00 11 12 00 2. 2 D 10 No Ac 24 -1 -0 00 & 84 t ti 50 7- 4- 0 R 75 Av ve 08 20 20 PH 0 ai 01 08 08 AR la 1 MA bl CA e RE RI 50 11 12 00 4. 2 D 10 No Ac SP 45 -1 -0 00 & 84 t ti ER 80 7- 4- 0 R 74 Av ve DA 30 20 20 PH 7 ai L 00 08 08 AR la 1 1 MA bl MG CA e RE TA BL ET 58 10 12 01 30 30 D 10 No Ac 17 -2 -0 .0 & 64 t ti 70 2- 4- 00 R 85 Av ve 00 20 20 PH 8 ai 10 08 08 AR la 9 MA bl CA e RE ZE 66 11 12 00 2. 2 D 10 No Ac TI 58 -1 -0 00 & 84 t ti A 20 7- 4- 0 R 74 Av ve 10 41 20 20 PH 9 ai 45 08 08 AR la MG 4 MA bl CA e TA RE BL ET GE 00 11 12 00 2. 2 D 10 No Ac MF 09 -1 -0 00 & 84 t ti IB 30 7- 4- 0 R 74 Av ve RO 67 20 20 PH 3 ai ZI 00 08 08 AR la L 5 MA bl 60 CA e 0 RE MG TA BL ET 00 11 12 00 2. 2 D 10 No Ac 18 -1 -0 00 & 84 t ti 24 7- 4- 0 R 73 Av ve 16 20 20 PH 8 ai 21 08 08 AR la 0 MA bl CA e RE 00 10 12 01 30 30 D 10 No Ac 22 -2 -0 .0 & 63 t ti 82 1- 4- 00 R 74 Av ve 57 20 20 PH 6 ai 70 08 08 AR la 9 MA bl CA e RE LE 00 11 12 01 30 30 D 10 No Ac VO 37 -0 -0 .0 & 74 t ti TH 81 1- 4- 00 R 00 Av ve YR 80 20 20 PH 5 ai OX 30 08 08 AR la IN 1 MA bl E CA e 50 RE MC G TA BL ET WA 00 11 12 00 2. 2 D 10 No Ac RF 55 -1 -0 00 & 84 t ti AR 50 7- 4- 0 R 74 Av ve IN 83 20 20 PH 8 ai 20 08 08 AR la SO 5 MA bl DI CA e UM RE 2. 5 MG TA BL ET FU 00 10 12 01 30 30 D 10 No Ac RO 17 -2 -0 .0 & 63 t ti SE 22 1- 4- 00 R 74 Av ve AZ 90 20 20 PH 7 ai DE 78 08 08 AR la 0 MA bl 40 CA e RE MG TA BL ET 00 11 11 00 30 30 D 10 No Ac 18 -1 -2 .0 & 83 t ti 24 4- 0- 00 R 07 Av ve 16 20 20 PH 9 ai 21 08 08 AR la 0 MA bl CA e RE OX 62 10 11 01 4. 1 D 10 RI Ac CA 75 -3 -2 00 & 73 NA ti RB 60 1- 0- 0 R 46 LD ve AZ 18 20 20 PH 0 IN EP 41 08 08 AR I IN 8 MA AN E CA A 30 RE M 0 MG TA BL ET 00 11 11 00 60 30 D 10 RI Ac 59 -0 -2 .0 & 75 NA ti 10 4- 0- 00 R 61 LD ve 83 20 20 PH 8 IN 92 08 08 AR I 5 MA AN CA A RE M WA 00 10 11 02 30 30 D 10 RI Ac RF 55 -0 -2 .0 & 49 NA ti AR 50 8- 0- 00 R 73 LD ve IN 83 20 20 PH 1 IN 20 08 08 AR I SO 5 MA AN DI CA A UM RE M 2. 5 MG TA BL ET LE 00 11 11 00 30 30 D 10 RI Ac VO 37 -0 -2 .0 & 74 NA ti TH 81 1- 0- 00 R 00 LD ve YR 80 20 20 PH 5 IN OX 30 08 08 AR I IN 1 MA AN E CA A 50 RE M MC G TA BL ET RI 50 11 11 00 60 30 D 10 RI Ac SP 45 -0 -2 .0 & 75 NA ti ER 80 3- 0- 00 R 00 LD ve DA 30 20 20 PH 9 IN L 00 08 08 AR I 1 1 MA AN MG CA A RE M TA BL ET ZE 66 10 11 01 30 30 D 10 RI Ac TI 58 -0 -2 .0 & 51 NA ti A 20 9- 0- 00 R 27 LD ve 10 41 20 20 PH 5 IN 45 08 08 AR I MG 4 MA AN CA A TA RE M BL ET TR 57 10 11 01 30 7 D 10 RI Ac AM 66 -2 -2 .0 & 72 NA ti AD 40 9- 0- 00 R 12 LD ve OL 37 20 20 PH 3 IN 71 08 08 AR I HC 8 MA AN L CA A 50 RE M MG TA BL ET GE 00 10 11 01 30 30 D 10 No Ac MF 09 -0 -2 .0 & 51 t ti IB 30 9- 0- 00 R 80 Av ve RO 67 20 20 PH 6 ai ZI 00 08 08 AR la L 5 MA bl 60 CA e 0 RE MG TA BL ET FU 00 10 11 00 30 30 D 10 RI Ac RO 17 -2 -0 .0 & 63 NA ti SE 22 1- 7- 00 R 74 LD ve AZ 90 20 20 PH 7 IN DE 78 08 08 AR I 0 MA AN 40 CA A RE M MG TA BL ET 58 10 11 00 30 30 D 10 RI Ac 17 -2 -0 .0 & 64 NA ti 70 2- 7- 00 R 85 LD ve 00 20 20 PH 8 IN 10 08 08 AR I 9 MA AN CA A RE M OX 62 10 11 00 4. 7 D 10 RI Ac CA 75 -3 -0 00 & 73 NA ti RB 60 1- 7- 0 R 46 LD ve AZ 18 20 20 PH 0 IN EP 41 08 08 AR I IN 8 MA AN E CA A 30 RE M 0 MG TA BL ET TR 57 10 11 00 30 7 D 10 RI Ac AM 66 -2 -0 .0 & 72 NA ti AD 40 9- 7- 00 R 12 LD ve OL 37 20 20 PH 3 IN 71 08 08 AR I HC 8 MA AN L CA A 50 RE M MG TA BL ET BE 50 10 11 00 30 30 D 10 RI Ac NZ 11 -2 -0 .0 & 67 NA ti TR 10 4- 7- 00 R 34 LD ve OP 39 20 20 PH 8 IN IN 30 08 08 AR I E 1 MA AN ME CA A S RE M 0. 5 MG TA B 00 10 11 00 30 30 D 10 RI Ac 24 -2 -0 .0 & 64 NA ti 50 2- 7- 00 R 91 LD ve 08 20 20 PH 0 IN 01 08 08 AR I 1 MA AN CA A RE M RI 50 10 11 00 30 30 D 10 RI Ac SP 45 -1 -0 .0 & 61 NA ti ER 80 9- 7- 00 R 74 LD ve DA 32 20 20 PH 2 IN L 00 08 08 AR I 2 1 MA AN MG CA A RE M TA BL ET 00 10 11 00 30 30 D 10 RI Ac 22 -2 -0 .0 & 63 NA ti 82 1- 7- 00 R 74 LD ve 57 20 20 PH 6 IN 70 08 08 AR I 9 MA AN CA A RE M 00 10 11 00 30 30 D 10 RI Ac 18 -2 -0 .0 & 64 NA ti 21 2- 7- 00 R 85 LD ve 06 20 20 PH 9 IN 10 08 08 AR I 5 MA AN CA A RE M 00 10 11 00 30 30 D 10 RI Ac 17 -3 -0 .0 & 72 NA ti 30 0- 7- 00 R 32 LD ve 24 20 20 PH 0 IN 95 08 08 AR I 6 MA AN CA A RE M CE 00 10 11 00 60 30 D 10 RI Ac LE 02 -2 -0 .0 & 66 NA ti BR 51 2- 7- 00 R 58 LD ve EX 52 20 20 PH 7 IN 53 08 08 AR I 20 1 MA AN 0 CA A MG RE M CA PS UL E 00 10 11 00 30 30 D 10 RI Ac 18 -1 -0 .0 & 61 NA ti 24 9- 7- 00 R 75 LD ve 16 20 20 PH 1 IN 20 08 08 AR I 1 MA AN CA A RE M 00 10 10 00 2. 2 D 10 RI Ac 18 -1 -2 00 & 54 NA ti 24 1- 3- 0 R 60 LD ve 16 20 20 PH 7 IN 20 08 08 AR I 1 MA AN CA A RE M WA 00 10 10 01 30 30 D 10 RI Ac RF 55 -0 -2 .0 & 49 NA ti AR 50 8- 3- 00 R 73 LD ve IN 83 20 20 PH 1 IN 20 08 08 AR I SO 5 MA AN DI CA A UM RE M 2. 5 MG TA BL ET 00 10 10 00 4. 2 D 10 RI Ac 59 -1 -2 00 & 54 NA ti 10 1- 3- 0 R 60 LD ve 83 20 20 PH 5 IN 92 08 08 AR I 5 MA AN CA A RE M 00 10 10 00 2. 2 D 10 RI Ac 18 -1 -2 00 & 54 NA ti 21 1- 3- 0 R 60 LD ve 06 20 20 PH 3 IN 10 08 08 AR I 5 MA AN CA A RE M 00 10 10 00 2. 2 D 10 RI Ac 22 -1 -2 00 & 54 NA ti 82 1- 3- 0 R 60 LD ve 57 20 20 PH 8 IN 70 08 08 AR I 9 MA AN CA A RE M 58 10 10 00 2. 2 D 10 RI Ac 17 -1 -2 00 & 54 NA ti 70 1- 3- 0 R 61 LD ve 00 20 20 PH 5 IN 10 08 08 AR I 9 MA AN CA A RE M 00 10 10 00 2. 2 D 10 RI Ac 17 -1 -2 00 & 54 NA ti 30 1- 3- 0 R 61 LD ve 24 20 20 PH 2 IN 95 08 08 AR I 6 MA AN CA A RE M FU 00 10 10 00 2. 2 D 10 RI Ac RO 17 -1 -2 00 & 54 NA ti SE 22 1- 3- 0 R 61 LD ve AZ 90 20 20 PH 0 IN DE 78 08 08 AR I 0 MA AN 40 CA A RE M MG TA BL ET BE 50 10 10 00 2. 2 D 10 RI Ac NZ 11 -1 -2 00 & 54 NA ti TR 10 1- 3- 0 R 60 LD ve OP 39 20 20 PH 4 IN IN 30 08 08 AR I E 1 MA AN ME CA A S RE M 0. 5 MG TA B OX 62 10 10 00 30 30 D 10 RI Ac CA 75 -1 -2 .0 & 55 NA ti RB 60 3- 3- 00 R 40 LD ve AZ 18 20 20 PH 3 IN EP 41 08 08 AR I IN 8 MA AN E CA A 30 RE M 0 MG TA BL ET 00 10 10 00 2. 2 D 10 RI Ac 24 -1 -2 00 & 54 NA ti 50 1- 3- 0 R 62 LD ve 08 20 20 PH 0 IN 01 08 08 AR I 1 MA AN CA A RE M RI 50 10 10 00 2. 2 D 10 RI Ac SP 45 -1 -2 00 & 54 NA ti ER 80 1- 3- 0 R 61 LD ve DA 30 20 20 PH 6 IN L 00 08 08 AR I 1 1 MA AN MG CA A RE M TA BL ET CE 00 10 10 00 4. 2 D 10 RI Ac LE 02 -1 -2 00 & 54 NA ti BR 51 1- 3- 0 R 60 LD ve EX 52 20 20 PH 6 IN 53 08 08 AR I 20 1 MA AN 0 CA A MG RE M CA PS UL E LE 00 10 10 00 2. 2 D 10 RI Ac VO 37 -1 -2 00 & 54 NA ti TH 81 1- 3- 0 R 61 LD ve YR 80 20 20 PH 3 IN OX 30 08 08 AR I IN 1 MA AN E CA A 50 RE M MC G TA BL ET ZE 66 10 10 00 30 30 D 10 RI Ac TI 58 -0 -2 .0 & 51 NA ti A 20 9- 3- 00 R 27 LD ve 10 41 20 20 PH 5 IN 45 08 08 AR I MG 4 MA AN CA A TA RE M BL ET GE 00 10 10 00 30 30 D 10 RI Ac MF 09 -0 -2 .0 & 51 NA ti IB 30 9- 3- 00 R 80 LD ve RO 67 20 20 PH 6 IN ZI 00 08 08 AR I L 5 MA AN 60 CA A 0 RE M MG TA BL ET LE 00 09 10 00 30 30 D 28 No Ac VO 37 -3 -0 .0 & 19 t ti TH 81 0- 9- 00 R 98 Av ve YR 80 20 20 PH 8 ai OX 30 08 08 AR la IN 1 MA bl E CA e 50 RE MC G TA BL ET BE 50 04 10 08 30 30 D 27 No Ac NZ 11 -2 -0 .0 & 20 t ti TR 10 4- 9- 00 R 78 Av ve OP 39 20 20 PH 3 ai IN 30 08 08 AR la E 1 MA bl ME CA e S RE 0. 5 MG TA B RI 50 08 10 02 30 30 D 27 No Ac SP 45 -1 -0 .0 & 92 t ti ER 80 8- 9- 00 R 73 Av ve DA 30 20 20 PH 0 ai L 00 08 08 AR la 1 1 MA bl MG CA e RE TA BL ET TR 57 05 10 02 30 7 D 27 No Ac AM 66 -0 -0 .0 & 26 t ti AD 40 3- 9- 00 R 31 Av ve OL 37 20 20 PH 1 ai 71 08 08 AR la HC 3 MA bl L CA e 50 RE MG TA BL ET 00 02 10 09 60 30 D 26 No Ac 59 -2 -0 .0 & 83 t ti 10 6- 9- 00 R 60 Av ve 83 20 20 PH 4 ai 92 08 08 AR la 5 MA bl CA e RE CE 00 09 10 00 60 30 D 28 No Ac LE 02 -2 -0 .0 & 15 t ti BR 51 3- 9- 00 R 84 Av ve EX 52 20 20 PH 7 ai 53 08 08 AR la 20 1 MA bl 0 CA e MG RE CA PS UL E 58 09 10 00 30 30 D 28 No Ac 17 -2 -0 .0 & 15 t ti 70 3- 9- 00 R 84 Av ve 00 20 20 PH 6 ai 11 08 08 AR la 1 MA bl CA e RE 00 01 09 11 30 30 D 26 No Ac 18 -1 -2 .0 & 54 t ti 21 2- 6- 00 R 61 Av ve 06 20 20 PH 4 ai 10 08 08 AR la 5 MA bl CA e RE 00 07 09 05 30 30 D 27 No Ac 17 -2 -2 .0 & 75 t ti 30 1- 6- 00 R 53 Av ve 24 20 20 PH 4 ai 97 08 08 AR la 5 MA bl CA e RE OX 62 09 09 00 30 30 D 28 No Ac CA 75 -1 -2 .0 & 08 t ti RB 60 2- 6- 00 R 98 Av ve AZ 18 20 20 PH 1 ai EP 48 08 08 AR la IN 8 MA bl E CA e 30 RE 0 MG TA BL ET FU 00 09 09 00 30 30 D 28 No Ac RO 17 -0 -2 .0 & 05 t ti SE 22 6- 6- 00 R 57 Av ve AZ 90 20 20 PH 9 ai DE 78 08 08 AR la 0 MA bl 40 CA e RE MG TA BL ET RI 50 08 09 02 30 30 D 27 No Ac SP 45 -1 -2 .0 & 92 t ti ER 80 8- 6- 00 R 96 Av ve DA 32 20 20 PH 8 ai L 00 08 08 AR la 2 1 MA bl MG CA e RE TA BL ET 00 12 09 10 30 30 D 26 No Ac 18 -0 -2 .0 & 30 t ti 24 3- 6- 00 R 46 Av ve 16 20 20 PH 6 ai 20 07 08 AR la 1 MA bl CA e RE 00 09 09 00 30 30 D 28 No Ac 24 -1 -2 .0 & 10 t ti 50 5- 6- 00 R 27 Av ve 08 20 20 PH 4 ai 01 08 08 AR la 1 MA bl CA e RE GE 00 04 09 08 30 30 D 27 No Ac MF 09 -2 -1 .0 & 20 t ti IB 30 3- 1- 00 R 57 Av ve RO 67 20 20 PH 7 ai ZI 00 08 08 AR la L 6 MA bl 60 CA e 0 RE MG TA BL ET 00 09 09 00 30 30 D 28 No Ac 22 -0 -1 .0 & 04 t ti 82 4- 1- 00 R 24 Av ve 57 20 20 PH 3 ai 70 08 08 AR la 9 MA bl CA e RE 00 12 09 11 1. 1 D 26 No Ac 22 -0 -1 00 & 30 t ti 82 3- 1- 0 R 47 Av ve 57 20 20 PH 1 ai 70 07 08 AR la 9 MA bl CA e RE 00 12 09 09 1. 1 D 26 No Ac 18 -0 -1 00 & 30 t ti 24 3- 1- 0 R 46 Av ve 16 20 20 PH 6 ai 20 07 08 AR la 1 MA bl CA e RE ZE 66 12 09 10 31 31 D 26 No Ac TI 58 -0 -1 .0 & 30 t ti A 20 3- 1- 00 R 48 Av ve 10 41 20 20 PH 5 ai 42 07 08 AR la MG 8 MA bl CA e TA RE BL ET BE 50 04 09 06 30 30 D 27 No Ac NZ 11 -2 -1 .0 & 20 t ti TR 10 4- 1- 00 R 78 Av ve OP 39 20 20 PH 3 ai IN 30 08 08 AR la E 1 MA bl ME CA e S RE 0. 5 MG TA B FU 00 12 09 11 1. 1 D 26 No Ac RO 17 -0 -1 00 & 30 t ti SE 22 3- 1- 0 R 47 Av ve AZ 90 20 20 PH 3 ai DE 78 07 08 AR la 0 MA bl 40 CA e RE MG TA BL ET WA 00 05 09 07 30 30 D 27 No Ac RF 55 -0 -1 .0 & 27 t ti AR 50 5- 1- 00 R 22 Av ve IN 83 20 20 PH 5 ai 20 08 08 AR la SO 5 MA bl DI CA e UM RE 2. 5 MG TA BL ET 00 02 09 08 63 31 D 26 No Ac 59 -2 -1 .0 & 83 t ti 10 6- 1- 00 R 60 Av ve 83 20 20 PH 4 ai 92 08 08 AR la 5 MA bl CA e RE 58 12 09 11 1. 1 D 26 No Ac 17 -0 -1 00 & 30 t ti 70 3- 1- 0 R 47 Av ve 00 20 20 PH 6 ai 11 07 08 AR la 1 MA bl CA e RE 00 07 09 04 1. 1 D 27 No Ac 17 -2 -1 00 & 75 t ti 30 1- 1- 0 R 53 Av ve 24 20 20 PH 4 ai 97 08 08 AR la 5 MA bl CA e RE 00 12 09 11 1. 1 D 26 No Ac 24 -0 -1 00 & 30 t ti 50 3- 1- 0 R 48 Av ve 08 20 20 PH 6 ai 01 07 08 AR la 1 MA bl CA e RE OX 62 12 09 11 1. 1 D 26 No Ac CA 75 -0 -1 00 & 30 t ti RB 60 3- 1- 0 R 47 Av ve AZ 18 20 20 PH 5 ai EP 48 07 08 AR la IN 8 MA bl E CA e 30 RE 0 MG TA BL ET CE 00 12 09 10 3. 1 D 26 No Ac LE 02 -0 -1 00 & 30 t ti BR 51 3- 1- 0 R 46 Av ve EX 52 20 20 PH 5 ai 53 07 08 AR la 20 1 MA bl 0 CA e MG RE CA PS UL E 00 01 09 10 1. 1 D 26 No Ac 18 -1 -1 00 & 54 t ti 21 2- 1- 0 R 61 Av ve 06 20 20 PH 4 ai 10 08 08 AR la 5 MA bl CA e RE RI 50 08 09 01 1. 1 D 27 No Ac SP 45 -1 -1 00 & 92 t ti ER 80 8- 1- 0 R 73 Av ve DA 30 20 20 PH 0 ai L 00 08 08 AR la 1 1 MA bl MG CA e RE TA BL ET LE 00 12 09 10 30 30 D 26 No Ac VO 37 -0 -1 .0 & 30 t ti TH 81 3- 1- 00 R 47 Av ve YR 80 20 20 PH 4 ai OX 30 07 08 AR la IN 1 MA bl E CA e 50 RE MC G TA BL ET 00 12 08 10 1. 1 D 26 No Ac 24 -0 -2 00 & 30 t ti 50 3- 8- 0 R 48 Av ve 08 20 20 PH 6 ai 01 07 08 AR la 1 MA bl CA e RE GE 00 04 08 06 2. 1 D 27 No Ac MF 09 -2 -2 00 & 20 t ti IB 30 3- 8- 0 R 57 Av ve RO 67 20 20 PH 7 ai ZI 00 08 08 AR la L 6 MA bl 60 CA e 0 RE MG TA BL ET CE 00 12 08 09 63 31 D 26 No Ac LE 02 -0 -2 .0 & 30 t ti BR 51 3- 8- 00 R 46 Av ve EX 52 20 20 PH 5 ai 53 07 08 AR la 20 1 MA bl 0 CA e MG RE CA PS UL E 58 12 08 10 1. 1 D 26 No Ac 17 -0 -2 00 & 30 t ti 70 3- 8- 0 R 47 Av ve 00 20 20 PH 6 ai 11 07 08 AR la 1 MA bl CA e RE WA 00 05 08 05 2. 1 D 27 No Ac RF 55 -0 -2 00 & 27 t ti AR 50 5- 8- 0 R 22 Av ve IN 83 20 20 PH 5 ai 20 08 08 AR la SO 5 MA bl DI CA e UM RE 2. 5 MG TA BL ET 00 12 08 09 30 30 D 26 No Ac 24 -0 -2 .0 & 30 t ti 50 3- 8- 00 R 48 Av ve 08 20 20 PH 6 ai 01 07 08 AR la 1 MA bl CA e RE 00 07 08 02 30 30 D 27 No Ac 17 -2 -2 .0 & 75 t ti 30 1- 8- 00 R 53 Av ve 24 20 20 PH 4 ai 97 08 08 AR la 5 MA bl CA e RE 00 12 08 07 1. 1 D 26 No Ac 18 -0 -2 00 & 30 t ti 24 3- 8- 0 R 46 Av ve 16 20 20 PH 6 ai 20 07 08 AR la 1 MA bl CA e RE 00 07 08 03 1. 1 D 27 No Ac 17 -2 -2 00 & 75 t ti 30 1- 8- 0 R 53 Av ve 24 20 20 PH 4 ai 97 08 08 AR la 5 MA bl CA e RE RI 50 08 08 00 31 31 D 27 No Ac SP 45 -1 -2 .0 & 92 t ti ER 80 8- 8- 00 R 73 Av ve DA 30 20 20 PH 0 ai L 00 08 08 AR la 1 1 MA bl MG CA e RE TA BL ET 00 12 08 08 1. 1 D 26 No Ac 24 -0 -2 00 & 30 t ti 50 3- 8- 0 R 48 Av ve 08 20 20 PH 6 ai 01 07 08 AR la 1 MA bl CA e RE 00 01 08 07 1. 1 D 26 No Ac 18 -1 -2 00 & 54 t ti 21 2- 8- 0 R 61 Av ve 06 20 20 PH 4 ai 10 08 08 AR la 5 MA bl CA e RE 00 07 08 01 1. 1 D 27 No Ac 17 -2 -2 00 & 75 t ti 30 1- 8- 0 R 53 Av ve 24 20 20 PH 4 ai 97 08 08 AR la 5 MA bl CA e RE OX 62 12 08 09 30 30 D 26 No Ac CA 75 -0 -2 .0 & 30 t ti RB 60 3- 8- 00 R 47 Av ve AZ 18 20 20 PH 5 ai EP 48 07 08 AR la IN 8 MA bl E CA e 30 RE 0 MG TA BL ET 00 12 08 09 1. 1 D 26 No Ac 22 -0 -2 00 & 30 t ti 82 3- 8- 0 R 47 Av ve 57 20 20 PH 1 ai 70 07 08 AR la 9 MA bl CA e RE 00 01 08 08 30 30 D 26 No Ac 18 -1 -2 .0 & 54 t ti 21 2- 8- 00 R 61 Av ve 06 20 20 PH 4 ai 10 08 08 AR la 5 MA bl CA e RE 00 12 08 08 1. 1 D 26 No Ac 18 -0 -2 00 & 30 t ti 24 3- 8- 0 R 46 Av ve 16 20 20 PH 6 ai 20 07 08 AR la 1 MA bl CA e RE BE 50 04 08 05 1. 1 D 27 No Ac NZ 11 -2 -2 00 & 20 t ti TR 10 4- 8- 0 R 78 Av ve OP 39 20 20 PH 3 ai IN 30 08 08 AR la E 1 MA bl ME CA e S RE 0. 5 MG TA B 58 12 08 09 30 30 D 26 No Ac 17 -0 -2 .0 & 30 t ti 70 3- 8- 00 R 47 Av ve 00 20 20 PH 6 ai 11 07 08 AR la 1 MA bl CA e RE ZE 66 12 08 09 1. 1 D 26 No Ac TI 58 -0 -2 00 & 30 t ti A 20 3- 8- 0 R 48 Av ve 10 41 20 20 PH 5 ai 42 07 08 AR la MG 8 MA bl CA e TA RE BL ET TE 00 08 08 00 1. 1 D 27 No Ac MA 78 -1 -2 00 & 92 t ti ZE 12 6- 8- 0 R 20 Av ve PA 20 20 20 PH 9 ai M 10 08 08 AR la 15 1 MA bl CA e MG RE CA PS UL E HY 00 08 08 00 2. [address] 18 -1 -2 00 & 92 t ti OX 50 6- 8- 0 R 20 Av ve YZ 61 20 20 PH 8 ai IN 30 08 08 AR la E 1 MA bl PA CA e M RE 25 MG CA P 58 12 08 08 1. 1 D 26 No Ac 17 -0 -2 00 & 30 t ti 70 3- 8- 0 R 47 Av ve 00 20 20 PH 6 ai 11 07 08 AR la 1 MA bl CA e RE 00 01 08 09 1. 1 D 26 No Ac 18 -1 -2 00 & 54 t ti 21 2- 8- 0 R 61 Av ve 06 20 20 PH 4 ai 10 08 08 AR la 5 MA bl CA e RE 00 02 08 06 3. 2 D 26 No Ac 59 -2 -2 00 & 83 t ti 10 6- 8- 0 R 60 Av ve 83 20 20 PH 4 ai 92 08 08 AR la 5 MA bl CA e RE FU 00 12 08 10 1. 1 D 26 No Ac RO 17 -0 -2 00 & 30 t ti SE 22 3- 8- 0 R 47 Av ve AZ 90 20 20 PH 3 ai DE 78 07 08 AR la 0 MA bl 40 CA e RE MG TA BL ET 00 02 08 07 3. 1 D 26 No Ac 59 -2 -2 00 & 83 t ti 10 6- 8- 0 R 60 Av ve 83 20 20 PH 4 ai 92 08 08 AR la 5 MA bl CA e RE LE 00 12 08 09 1. 1 D 26 No Ac VO 37 -0 -2 00 & 30 t ti TH 81 3- 8- 0 R 47 Av ve YR 80 20 20 PH 4 ai OX 30 07 08 AR la IN 1 MA bl E CA e 50 RE MC G TA BL ET 00 12 08 10 1. 1 D 26 No Ac 22 -0 -2 00 & 30 t ti 82 3- 8- 0 R 47 Av ve 57 20 20 PH 1 ai 70 07 08 AR la 9 MA bl CA e RE GE 00 04 08 04 30 30 D 27 No Ac MF 09 -2 -1 .0 & 20 t ti IB 30 3- 4- 00 R 57 Av ve RO 67 20 20 PH 7 ai ZI 00 08 08 AR la L 6 MA bl 60 CA e 0 RE MG TA BL ET 00 12 08 06 30 30 D 26 No Ac 18 -0 -1 .0 & 30 t ti 24 3- 4- 00 R 46 Av ve 16 20 20 PH 6 ai 20 07 08 AR la 1 MA bl CA e RE WA 00 05 08 03 30 30 D 27 No Ac RF 55 -0 -1 .0 & 27 t ti AR 50 5- 4- 00 R 22 Av ve IN 83 20 20 PH 5 ai 20 08 08 AR la SO 5 MA bl DI CA e UM RE 2. 5 MG TA BL ET 00 08 08 00 47 15 D 27 No Ac 57 -0 -1 3. & 87 t ti 40 8- 4- 00 R 04 Av ve 16 20 20 0 PH 0 ai 81 08 08 AR la 6 MA bl CA e RE 00 12 08 08 30 30 D 26 No Ac 22 -0 -1 .0 & 30 t ti 82 3- 4- 00 R 47 Av ve 57 20 20 PH 1 ai 70 07 08 AR la 9 MA bl CA e RE ZE 66 12 08 07 30 30 D 26 No Ac TI 58 -0 -1 .0 & 30 t ti A 20 3- 4- 00 R 48 Av ve 10 41 20 20 PH 5 ai 42 07 08 AR la MG 8 MA bl CA e TA RE BL ET FU 00 12 08 08 30 30 D 26 No Ac RO 17 -0 -1 .0 & 30 t ti SE 22 3- 4- 00 R 47 Av ve AZ 90 20 20 PH 3 ai DE 78 07 08 AR la 0 MA bl 40 CA e RE MG TA BL ET 00 02 08 05 60 30 D 26 No Ac 59 -2 -1 .0 & 83 t ti 10 6- 4- 00 R 60 Av ve 83 20 20 PH 4 ai 92 08 08 AR la 5 MA bl CA e RE 00 07 08 00 30 30 D 27 No Ac 17 -2 -0 .0 & 75 t ti 30 1- 1- 00 R 53 Av ve 24 20 20 PH 4 ai 97 08 08 AR la 5 MA bl CA e RE LE 00 12 08 07 30 30 D 26 No Ac VO 37 -0 -0 .0 & 30 t ti TH 81 3- 1- 00 R 47 Av ve YR 80 20 20 PH 4 ai OX 30 07 08 AR la IN 1 MA bl E CA e 50 RE MC G TA BL ET 00 01 08 06 30 30 D 26 No Ac 18 -1 -0 .0 & 54 t ti 21 2- 1- 00 R 61 Av ve 06 20 20 PH 4 ai 10 08 08 AR la 5 MA bl CA e RE 00 12 08 07 30 30 D 26 No Ac 24 -0 -0 .0 & 30 t ti 50 3- 1- 00 R 48 Av ve 08 20 20 PH 6 ai 01 07 08 AR la 1 MA bl CA e RE 58 12 08 07 30 30 D 26 No Ac 17 -0 -0 .0 & 30 t ti 70 3- 1- 00 R 47 Av ve 00 20 20 PH 6 ai 11 07 08 AR la 1 MA bl CA e RE RI 50 07 08 00 30 30 D 27 No Ac SP 45 -1 -0 .0 & 69 t ti ER 80 1- 1- 00 R 29 Av ve ID 59 20 20 PH 1 ai ON 26 08 08 AR la E 0 MA bl 1 CA e MG RE TA BL ET CE 00 12 08 07 60 30 D 26 No Ac LE 02 -0 -0 .0 & 30 t ti BR 51 3- 1- 00 R 46 Av ve EX 52 20 20 PH 5 ai 53 07 08 AR la 20 1 MA bl 0 CA e MG RE CA PS UL E TR 57 05 08 01 30 7 D 27 No Ac AM 66 -0 -0 .0 & 26 t ti AD 40 3- 1- 00 R 31 Av ve OL 37 20 20 PH 1 ai 71 08 08 AR la HC 3 MA bl L CA e 50 RE MG TA BL ET BE 50 04 08 03 30 30 D 27 No Ac NZ 11 -2 -0 .0 & 20 t ti TR 10 4- 1- 00 R 78 Av ve OP 39 20 20 PH 3 ai IN 30 08 08 AR la E 1 MA bl ME CA e S RE 0. 5 MG TA B GE 00 04 08 03 30 30 D 27 No Ac MF 09 -2 -0 .0 & 20 t ti IB 30 3- 1- 00 R 57 Av ve RO 67 20 20 PH 7 ai ZI 00 08 08 AR la L 6 MA bl 60 CA e 0 RE MG TA BL ET ZE 66 12 07 06 30 30 D 26 No Ac TI 58 -0 -1 .0 & 30 t ti A 20 3- 7- 00 R 48 Av ve 10 41 20 20 PH 5 ai 42 07 08 AR la MG 8 MA bl CA e TA RE BL ET WA 00 05 07 02 30 30 D 27 No Ac RF 55 -0 -1 .0 & 27 t ti AR 50 5- 7- 00 R 22 Av ve IN 83 20 20 PH 5 ai 20 08 08 AR la SO 5 MA bl DI CA e UM RE 2. 5 MG TA BL ET 00 12 07 05 30 30 D 26 No Ac 18 -0 -1 .0 & 30 t ti 24 3- 7- 00 R 46 Av ve 16 20 20 PH 6 ai 20 07 08 AR la 1 MA bl CA e RE OX 62 12 07 07 30 30 D 26 No Ac CA 75 -0 -1 .0 & 30 t ti RB 60 3- 7- 00 R 47 Av ve AZ 18 20 20 PH 5 ai EP 48 07 08 AR la IN 8 MA bl E CA e 30 RE 0 MG TA BL ET 00 12 07 07 30 30 D 26 No Ac 22 -0 -1 .0 & 30 t ti 82 3- 7- 00 R 47 Av ve 57 20 20 PH 1 ai 70 07 08 AR la 9 MA bl CA e RE FU 00 12 07 07 30 30 D 26 No Ac RO 17 -0 -1 .0 & 30 t ti SE 22 3- 7- 00 R 47 Av ve AZ 90 20 20 PH 3 ai DE 78 07 08 AR la 0 MA bl 40 CA e RE MG TA BL ET LE 00 12 07 06 30 30 D 26 No Ac VO 37 -0 -1 .0 & 30 t ti TH 81 3- 7- 00 R 47 Av ve YR 80 20 20 PH 4 ai OX 30 07 08 AR la IN 1 MA bl E CA e 50 RE MC G TA BL ET DI 57 05 07 01 60 30 D 27 No Ac GO 66 -2 -0 .0 & 39 t ti XI 40 4- 3- 00 R 74 Av ve N 43 20 20 PH 5 ai 0. 71 08 08 AR la 12 8 MA bl 5 CA e MG RE TA BL ET BE 50 04 07 02 30 30 D 27 No Ac NZ 11 -2 -0 .0 & 20 t ti TR 10 4- 3- 00 R 78 Av ve OP 39 20 20 PH 3 ai IN 30 08 08 AR la E 1 MA bl ME CA e S RE 0. 5 MG TA B OX 62 12 07 06 30 30 D 26 No Ac CA 75 -0 -0 .0 & 30 t ti RB 60 3- 3- 00 R 47 Av ve AZ 18 20 20 PH 5 ai EP 48 07 08 AR la IN 8 MA bl E CA e 30 RE 0 MG TA BL ET GE 00 04 07 02 30 30 D 27 No Ac MF 09 -2 -0 .0 & 20 t ti IB 30 3- 3- 00 R 57 Av ve RO 67 20 20 PH 7 ai ZI 00 08 08 AR la L 6 MA bl 60 CA e 0 RE MG TA BL ET 00 12 07 06 30 30 D 26 No Ac 24 -0 -0 .0 & 30 t ti 50 3- 3- 00 R 48 Av ve 08 20 20 PH 6 ai 01 07 08 AR la 1 MA bl CA e RE 00 01 07 05 30 30 D 26 No Ac 18 -1 -0 .0 & 54 t ti 21 2- 3- 00 R 61 Av ve 06 20 20 PH 4 ai 10 08 08 AR la 5 MA bl CA e RE 58 12 07 06 30 30 D 26 No Ac 17 -0 -0 .0 & 30 t ti 70 3- 3- 00 R 47 Av ve 00 20 20 PH 6 ai 11 07 08 AR la 1 MA bl CA e RE CE 00 12 07 06 60 30 D 26 No Ac LE 02 -0 -0 .0 & 30 t ti BR 51 3- 3- 00 R 46 Av ve EX 52 20 20 PH 5 ai 53 07 08 AR la 20 1 MA bl 0 CA e MG RE CA PS UL E RI 50 02 07 04 30 30 D 26 No Ac SP 45 -2 -0 .0 & 83 t ti ER 80 6- 3- 00 R 60 Av ve DA 30 20 20 PH 5 ai L 00 08 08 AR la 1 1 MA bl MG CA e RE TA BL ET 00 02 07 04 60 30 D 26 No Ac 59 -2 -0 .0 & 83 t ti 10 6- 3- 00 R 60 Av ve 83 20 20 PH 4 ai 92 08 08 AR la 5 MA bl CA e RE 00 05 06 00 2. 1 D 27 No Ac 18 -3 -1 00 & 43 t ti 21 1- 2- 0 R 74 Av ve 99 20 20 PH 1 ai 20 08 08 AR la 1 MA bl CA e RE 00 12 06 06 30 30 D 26 No Ac 22 -0 -1 .0 & 30 t ti 82 3- 2- 00 R 47 Av ve 57 20 20 PH 1 ai 70 07 08 AR la 9 MA bl CA e RE 00 12 06 04 30 30 D 26 No Ac 18 -0 -1 .0 & 30 t ti 24 3- 2- 00 R 46 Av ve 16 20 20 PH 6 ai 20 07 08 AR la 1 MA bl CA e RE FU 00 12 06 06 30 30 D 26 No Ac RO 17 -0 -1 .0 & 30 t ti SE 22 3- 2- 00 R 47 Av ve AZ 90 20 20 PH 3 ai DE 78 07 08 AR la 0 MA bl 40 CA e RE MG TA BL ET WA 00 05 06 01 30 30 D 27 No Ac RF 55 -0 -1 .0 & 27 t ti AR 50 5- 2- 00 R 22 Av ve IN 83 20 20 PH 5 ai 20 08 08 AR la SO 5 MA bl DI CA e UM RE 2. 5 MG TA BL ET 00 05 06 00 90 1 D 27 No Ac 13 -3 -1 .0 & 43 t ti 20 1- 2- 00 R 74 Av ve 10 20 20 PH 2 ai 81 08 08 AR la 5 MA bl CA e RE 00 12 06 05 30 30 D 26 No Ac 24 -0 -0 .0 & 30 t ti 50 3- 5- 00 R 48 Av ve 08 20 20 PH 6 ai 01 07 08 AR la 1 MA bl CA e RE GE 00 04 06 01 30 30 D 27 No Ac MF 09 -2 -0 .0 & 20 t ti IB 30 3- 5- 00 R 57 Av ve RO 67 20 20 PH 7 ai ZI 00 08 08 AR la L 6 MA bl 60 CA e 0 RE MG TA BL ET RI 50 02 06 03 30 30 D 26 No Ac SP 45 -2 -0 .0 & 83 t ti ER 80 6- 5- 00 R 60 Av ve DA 30 20 20 PH 5 ai L 00 08 08 AR la 1 1 MA bl MG CA e RE TA BL ET 58 12 06 05 30 30 D 26 No Ac 17 -0 -0 .0 & 30 t ti 70 3- 5- 00 R 47 Av ve 00 20 20 PH 6 ai 11 07 08 AR la 1 MA bl CA e RE 00 02 06 03 60 30 D 26 No Ac 59 -2 -0 .0 & 83 t ti 10 6- 5- 00 R 60 Av ve 83 20 20 PH 4 ai 92 08 08 AR la 5 MA bl CA e RE BE 50 04 06 01 30 30 D 27 No Ac NZ 11 -2 -0 .0 & 20 t ti TR 10 4- 5- 00 R 78 Av ve OP 39 20 20 PH 3 ai IN 30 08 08 AR la E 1 MA bl ME CA e S RE 0. 5 MG TA B CE 00 12 06 05 60 30 D 26 No Ac LE 02 -0 -0 .0 & 30 t ti BR 51 3- 5- 00 R 46 Av ve EX 52 20 20 PH 5 ai 53 07 08 AR la 20 1 MA bl 0 CA e MG RE CA PS UL E ZE 66 12 06 05 30 30 D 26 No Ac TI 58 -0 -0 .0 & 30 t ti A 20 3- 5- 00 R 48 Av ve 10 41 20 20 PH 5 ai 42 07 08 AR la MG 8 MA bl CA e TA RE BL ET DI 57 05 06 00 60 30 D 27 No Ac GO 66 -2 -0 .0 & 39 t ti XI 40 4- 5- 00 R 74 Av ve N 43 20 20 PH 5 ai 0. 71 08 08 AR la 12 8 MA bl 5 CA e MG RE TA BL ET FU 00 12 05 05 30 30 D 26 No Ac RO 17 -0 -2 .0 & 30 t ti SE 22 3- 2- 00 R 47 Av ve AZ 90 20 20 PH 3 ai DE 78 07 08 AR la 0 MA bl 40 CA e RE MG TA BL ET LE 00 12 05 05 30 30 D 26 No Ac VO 37 -0 -2 .0 & 30 t ti TH 81 3- 2- 00 R 47 Av ve YR 80 20 20 PH 4 ai OX 30 07 08 AR la IN 1 MA bl E CA e 50 RE MC G TA BL ET 00 12 05 03 30 30 D 26 No Ac 18 -0 -2 .0 & 30 t ti 24 3- 2- 00 R 46 Av ve 16 20 20 PH 6 ai 20 07 08 AR la 1 MA bl CA e RE OX 62 12 05 05 30 30 D 26 No Ac CA 75 -0 -2 .0 & 30 t ti RB 60 3- 2- 00 R 47 Av ve AZ 18 20 20 PH 5 ai EP 48 07 08 AR la IN 8 MA bl E CA e 30 RE 0 MG TA BL ET WA 00 05 05 00 30 30 D 27 No Ac RF 55 -0 -2 .0 & 27 t ti AR 50 5- 2- 00 R 22 Av ve IN 83 20 20 PH 5 ai 20 08 08 AR la SO 5 MA bl DI CA e UM RE 2. 5 MG TA BL ET TR 57 05 05 00 30 7 D 27 No Ac AM 66 -0 -2 .0 & 26 t ti AD 40 3- 2- 00 R 31 Av ve OL 37 20 20 PH 1 ai 71 08 08 AR la HC 3 MA bl L CA e 50 RE MG TA BL ET 00 12 05 05 30 30 D 26 No Ac 22 -0 -2 .0 & 30 t ti 82 3- 2- 00 R 47 Av ve 57 20 20 PH 1 ai 70 07 08 AR la 9 MA bl CA e RE 00 01 05 04 30 30 D 26 No Ac 18 -1 -2 .0 & 54 t ti 21 2- 2- 00 R 61 Av ve 06 20 20 PH 4 ai 10 08 08 AR la 5 MA bl CA e RE RI 50 04 05 00 30 30 D 27 No Ac SP 45 -2 -0 .0 & 20 t ti ER 80 3- 8- 00 R 57 Av ve DA 32 20 20 PH 6 ai L 00 08 08 AR la 2 1 MA bl MG CA e RE TA BL ET 00 04 05 00 1. 1 D 27 No Ac 18 -2 -0 00 & 22 t ti 21 8- 8- 0 R 90 Av ve 83 20 20 PH 5 ai 21 08 08 AR la 0 MA bl CA e RE 62 12 05 04 10 10 D 26 No Ac 79 -0 -0 .0 & 30 t ti 40 3- 8- 00 R 46 Av ve 14 20 20 PH 7 ai 61 07 08 AR la 0 MA bl CA e RE 58 12 05 04 30 30 D 26 No Ac 17 -0 -0 .0 & 30 t ti 70 3- 8- 00 R 47 Av ve 00 20 20 PH 6 ai 11 07 08 AR la 1 MA bl CA e RE ZE 66 12 05 04 30 30 D 26 No Ac TI 58 -0 -0 .0 & 30 t ti A 20 3- 8- 00 R 48 Av ve 10 41 20 20 PH 5 ai 42 07 08 AR la MG 8 MA bl CA e TA RE BL ET DI 57 05 05 00 30 15 D 27 No Ac GO 66 -0 -0 .0 & 25 t ti XI 40 2- 8- 00 R 50 Av ve N 43 20 20 PH 9 ai 0. 71 08 08 AR la 12 8 MA bl 5 CA e MG RE TA BL ET CE 00 12 05 04 60 30 D 26 No Ac LE 02 -0 -0 .0 & 30 t ti BR 51 3- 8- 00 R 46 Av ve EX 52 20 20 PH 5 ai 53 07 08 AR la 20 1 MA bl 0 CA e MG RE CA PS UL E BE 50 04 05 00 30 30 D 27 No Ac NZ 11 -2 -0 .0 & 20 t ti TR 10 4- 8- 00 R 78 Av ve OP 39 20 20 PH 3 ai IN 30 08 08 AR la E 1 MA bl ME CA e S RE 0. 5 MG TA B 00 02 05 02 60 30 D 26 No Ac 59 -2 -0 .0 & 83 t ti 10 6- 8- 00 R 60 Av ve 83 20 20 PH 4 ai 92 08 08 AR la 5 MA bl CA e RE GE 00 04 05 00 30 30 D 27 No Ac MF 09 -2 -0 .0 & 20 t ti IB 30 3- 8- 00 R 57 Av ve RO 67 20 20 PH 7 ai ZI 00 08 08 AR la L 6 MA bl 60 CA e 0 RE MG TA BL ET WA 00 05 05 00 30 30 D 27 No Ac RF 55 -0 -0 .0 & 24 t ti AR 50 1- 8- 00 R 81 Av ve IN 83 20 20 PH 0 ai 30 08 08 AR la SO 2 MA bl DI CA e UM RE 5 MG TA BL ET HY 00 12 05 03 14 5 D [address] 18 -0 -0 .0 & 30 t ti OX 50 3- 8- 00 R 49 Av ve YZ 61 20 20 PH 0 ai IN 30 07 08 AR la E 1 MA bl PA CA e M RE 25 MG CA P WA 00 12 04 04 18 30 D 26 No Ac RF 55 -0 -2 .0 & 30 t ti AR 50 3- 4- 00 R 47 Av ve IN 83 20 20 PH 8 ai 30 07 08 AR la SO 2 MA bl DI CA e UM RE 5 MG TA BL ET OX 62 12 04 04 30 30 D 26 No Ac CA 75 -0 -2 .0 & 30 t ti RB 60 3- 4- 00 R 47 Av ve AZ 18 20 20 PH 5 ai EP 48 07 08 AR la IN 8 MA bl E CA e 30 RE 0 MG TA BL ET 00 12 04 04 30 30 D 26 No Ac 24 -0 -2 .0 & 30 t ti 50 3- 4- 00 R 48 Av ve 08 20 20 PH 6 ai 01 07 08 AR la 1 MA bl CA e RE RI 50 02 04 02 30 30 D 26 No Ac SP 45 -2 -2 .0 & 83 t ti ER 80 6- 4- 00 R 60 Av ve DA 30 20 20 PH 5 ai L 00 08 08 AR la 1 1 MA bl MG CA e RE TA BL ET 62 12 04 04 30 30 D 26 No Ac 79 -0 -2 .0 & 30 t ti 40 3- 4- 00 R 46 Av ve 14 20 20 PH 7 ai 61 07 08 AR la 0 MA bl CA e RE LE 00 12 04 04 30 30 D 26 No Ac VO 37 -0 -2 .0 & 30 t ti TH 81 3- 4- 00 R 47 Av ve YR 80 20 20 PH 4 ai OX 30 07 08 AR la IN 1 MA bl E CA e 50 RE MC G TA BL ET 00 01 04 03 30 30 D 26 No Ac 18 -1 -2 .0 & 54 t ti 21 2- 4- 00 R 61 Av ve 06 20 20 PH 4 ai 10 08 08 AR la 5 MA bl CA e RE LE 00 12 04 03 30 30 D 26 No Ac VO 37 -0 -1 .0 & 30 t ti TH 81 3- 7- 00 R 47 Av ve YR 80 20 20 PH 4 ai OX 30 07 08 AR la IN 1 MA bl E CA e 50 RE MC G TA BL ET ZE 66 12 04 03 30 30 D 26 No Ac TI 58 -0 -1 .0 & 30 t ti A 20 3- 7- 00 R 48 Av ve 10 41 20 20 PH 5 ai 42 07 08 AR la MG 8 MA bl CA e TA RE BL ET CE 00 12 04 03 60 30 D 26 No Ac LE 02 -0 -1 .0 & 30 t ti BR 51 3- 7- 00 R 46 Av ve EX 52 20 20 PH 5 ai 53 07 08 AR la 20 1 MA bl 0 CA e MG RE CA PS UL E 00 12 04 01 30 30 D 26 No Ac 18 -0 -1 .0 & 30 t ti 24 3- 7- 00 R 46 Av ve 16 20 20 PH 6 ai 20 07 08 AR la 1 MA bl CA e RE 00 01 04 02 30 30 D 26 No Ac 18 -1 -1 .0 & 54 t ti 21 2- 7- 00 R 61 Av ve 06 20 20 PH 4 ai 10 08 08 AR la 5 MA bl CA e RE 62 12 04 03 30 30 D 26 No Ac 79 -0 -1 .0 & 30 t ti 40 3- 7- 00 R 46 Av ve 14 20 20 PH 7 ai 61 07 08 AR la 0 MA bl CA e RE WA 00 12 04 03 18 30 D 26 No Ac RF 55 -0 -1 .0 & 30 t ti AR 50 3- 7- 00 R 47 Av ve IN 83 20 20 PH 8 ai 30 07 08 AR la SO 2 MA bl DI CA e UM RE 5 MG TA BL ET OX 62 12 04 03 30 30 D 26 No Ac CA 75 -0 -1 .0 & 30 t ti RB 60 3- 7- 00 R 47 Av ve AZ 18 20 20 PH 5 ai EP 48 07 08 AR la IN 8 MA bl E CA e 30 RE 0 MG TA BL ET 00 12 04 03 30 30 D 26 No Ac 24 -0 -1 .0 & 30 t ti 50 3- 7- 00 R 48 Av ve 08 20 20 PH 6 ai 01 07 08 AR la 1 MA bl CA e RE 00 02 04 01 60 30 D 26 No Ac 59 -2 -1 .0 & 83 t ti 10 6- 0- 00 R 60 Av ve 83 20 20 PH 4 ai 92 08 08 AR la 5 MA bl CA e RE RI 50 02 04 01 30 30 D 26 No Ac SP 45 -2 -1 .0 & 83 t ti ER 80 6- 0- 00 R 60 Av ve DA 30 20 20 PH 5 ai L 00 08 08 AR la 1 1 MA bl MG CA e RE TA BL ET BE 50 02 04 01 60 30 D 26 No Ac NZ 11 -2 -1 .0 & 83 t ti TR 10 6- 0- 00 R 60 Av ve OP 39 20 20 PH 7 ai IN 30 08 08 AR la E 1 MA bl ME CA e S RE 0. 5 MG TA B 58 12 04 03 30 30 D 26 No Ac 17 -0 -1 .0 & 30 t ti 70 3- 0- 00 R 47 Av ve 00 20 20 PH 6 ai 11 07 08 AR la 1 MA bl CA e RE 00 12 04 04 30 30 D 26 No Ac 22 -0 -1 .0 & 30 t ti 82 3- 0- 00 R 47 Av ve 57 20 20 PH 1 ai 70 07 08 AR la 9 MA bl CA e RE FU 00 12 04 04 30 30 D 26 No Ac RO 17 -0 -1 .0 & 30 t ti SE 22 3- 0- 00 R 47 Av ve AZ 90 20 20 PH 3 ai DE 78 07 08 AR la 0 MA bl 40 CA e RE MG TA BL ET 00 12 04 02 30 30 D 26 No Ac 18 -0 -1 .0 & 30 t ti 24 3- 0- 00 R 46 Av ve 16 20 20 PH 6 ai 20 07 08 AR la 1 MA bl CA e RE 00 12 04 03 30 30 D 26 No Ac 22 -0 -0 .0 & 30 t ti 82 3- 7- 00 R 47 Av ve 57 20 20 PH 1 ai 70 07 08 AR la 9 MA bl CA e RE CI 00 03 04 00 10 5 D 26 No Ac MO 17 -0 -0 .0 & 88 t ti OF 25 5- 7- 00 R 59 Av ve LO 31 20 20 PH 2 ai XA 26 08 08 AR la CI 0 MA bl N CA e HC RE L 50 0 MG TA B FU 00 12 04 03 30 30 D 26 No Ac RO 17 -0 -0 .0 & 30 t ti SE 22 3- 7- 00 R 47 Av ve AZ 90 20 20 PH 3 ai DE 78 07 08 AR la 0 MA bl 40 CA e RE MG TA BL ET RI 50 02 04 00 30 30 D 26 No Ac SP 45 -2 -0 .0 & 83 t ti ER 80 6- 7- 00 R 60 Av ve DA 33 20 20 PH 6 ai L 00 08 08 AR la 3 1 MA bl MG CA e RE TA BL ET 00 02 04 00 60 30 D 26 No Ac 59 -2 -0 .0 & 83 t ti 10 6- 7- 00 R 60 Av ve 83 20 20 PH 4 ai 92 08 08 AR la 5 MA bl CA e RE 62 02 04 00 7. 7 D 26 No Ac 85 -2 -0 00 & 83 t ti 60 6- 7- 0 R 60 Av ve 24 20 20 PH 8 ai 54 08 08 AR la 1 MA bl CA e RE BE 50 02 04 00 60 30 D 26 No Ac NZ 11 -2 -0 .0 & 83 t ti TR 10 6- 7- 00 R 60 Av ve OP 39 20 20 PH 7 ai IN 30 08 08 AR la E 1 MA bl ME CA e S RE 0. 5 MG TA B FU 00 12 03 02 30 30 D 26 No Ac RO 17 -0 -2 .0 & 30 t ti SE 22 3- 6- 00 R 47 Av ve AZ 90 20 20 PH 3 ai DE 78 07 08 AR la 0 MA bl 40 CA e RE MG TA BL ET OX 62 12 03 02 30 30 D 26 No Ac CA 75 -0 -2 .0 & 30 t ti RB 60 3- 6- 00 R 47 Av ve AZ 18 20 20 PH 5 ai EP 48 07 08 AR la IN 8 MA bl E CA e 30 RE 0 MG TA BL ET 00 12 03 02 30 30 D 26 No Ac 59 -0 -2 .0 & 30 t ti 10 3- 6- 00 R 46 Av ve 83 20 20 PH 4 ai 92 07 08 AR la 5 MA bl CA e RE 00 12 03 01 30 7 D 26 No Ac 18 -0 -2 .0 & 30 t ti 21 3- 6- 00 R 48 Av ve 83 20 20 PH 8 ai 21 07 08 AR la 0 MA bl CA e RE 62 12 03 02 30 30 D 26 No Ac 79 -0 -2 .0 & 30 t ti 40 3- 6- 00 R 46 Av ve 14 20 20 PH 7 ai 61 07 08 AR la 0 MA bl CA e RE LE 00 12 03 02 30 30 D 26 No Ac VO 37 -0 -2 .0 & 30 t ti TH 81 3- 6- 00 R 47 Av ve YR 80 20 20 PH 4 ai OX 30 07 08 AR la IN 1 MA bl E CA e 50 RE MC G TA BL ET 00 01 03 01 30 30 D 26 No Ac 18 -1 -2 .0 & 54 t ti 21 2- 6- 00 R 61 Av ve 06 20 20 PH 4 ai 10 08 08 AR la 5 MA bl CA e RE 00 12 03 02 30 30 D 26 No Ac 24 -0 -2 .0 & 30 t ti 50 3- 6- 00 R 48 Av ve 08 20 20 PH 6 ai 01 07 08 AR la 1 MA bl CA e RE HY 00 12 03 03 30 10 D [address] 18 -0 -2 .0 & 30 t ti OX 50 3- 6- 00 R 49 Av ve YZ 61 20 20 PH 0 ai IN 30 07 08 AR la E 1 MA bl PA CA e M RE 25 MG CA P WA 00 12 03 02 18 30 D 26 No Ac RF 55 -0 -2 .0 & 30 t ti AR 50 3- 6- 00 R 47 Av ve IN 83 20 20 PH 8 ai 30 07 08 AR la SO 2 MA bl DI CA e UM RE 5 MG TA BL ET 00 12 03 02 30 30 D 26 No Ac 22 -0 -2 .0 & 30 t ti 82 3- 6- 00 R 47 Av ve 57 20 20 PH 1 ai 70 07 08 AR la 9 MA bl CA e RE ZE 66 12 03 02 30 30 D 26 No Ac TI 58 -0 -2 .0 & 30 t ti A 20 3- 6- 00 R 48 Av ve 10 41 20 20 PH 5 ai 42 07 08 AR la MG 8 MA bl CA e TA RE BL ET 58 12 03 02 30 30 D 26 No Ac 17 -0 -2 .0 & 30 t ti 70 3- 6- 00 R 47 Av ve 00 20 20 PH 6 ai 11 07 08 AR la 1 MA bl CA e RE CE 00 12 03 02 60 30 D 26 No Ac LE 02 -0 -2 .0 & 30 t ti BR 51 3- 5- 00 R 46 Av ve EX 52 20 20 PH 5 ai 53 07 08 AR la 20 1 MA bl 0 CA e MG RE CA PS UL E 00 12 03 01 30 30 D 26 No Ac 59 -0 -2 .0 & 30 t ti 10 3- 5- 00 R 46 Av ve 83 20 20 PH 4 ai 92 07 08 AR la 5 MA bl CA e RE 00 01 03 00 30 30 D 26 No Ac 18 -1 -2 .0 & 54 t ti 21 2- 5- 00 R 61 Av ve 06 20 20 PH 4 ai 10 08 08 AR la 5 MA bl CA e RE 58 12 03 01 30 30 D 26 No Ac 17 -0 -2 .0 & 30 t ti 70 3- 5- 00 R 47 Av ve 00 20 20 PH 6 ai 11 07 08 AR la 1 MA bl CA e RE 00 12 03 01 30 30 D 26 No Ac 22 -0 -2 .0 & 30 t ti 82 3- 5- 00 R 47 Av ve 57 20 20 PH 1 ai 70 07 08 AR la 9 MA bl CA e RE HY 00 12 03 02 30 10 D [address] 18 -0 -2 .0 & 30 t ti OX 50 3- 5- 00 R 49 Av ve YZ 61 20 20 PH 0 ai IN 30 07 08 AR la E 1 MA bl PA CA e M RE 25 MG CA P WA 00 12 03 01 18 30 D 26 No Ac RF 55 -0 -2 .0 & 30 t ti AR 50 3- 5- 00 R 47 Av ve IN 83 20 20 PH 8 ai 30 07 08 AR la SO 2 MA bl DI CA e UM RE 5 MG TA BL ET RI 50 12 03 01 30 30 D 26 No Ac SP 45 -0 -2 .0 & 30 t ti ER 80 3- 5- 00 R 47 Av ve DA 33 20 20 PH 7 ai L 00 07 08 AR la 3 1 MA bl MG CA e RE TA BL ET 62 12 03 01 30 30 D 26 No Ac 79 -0 -2 .0 & 30 t ti 40 3- 5- 00 R 46 Av ve 14 20 20 PH 7 ai 61 07 08 AR la 0 MA bl CA e RE LE 00 12 03 01 30 30 D 26 No Ac VO 37 -0 -2 .0 & 30 t ti TH 81 3- 5- 00 R 47 Av ve YR 80 20 20 PH 4 ai OX 30 07 08 AR la IN 1 MA bl E CA e 50 RE MC G TA BL ET ZE 66 12 03 01 30 30 D 26 No Ac TI 58 -0 -2 .0 & 30 t ti A 20 3- 5- 00 R 48 Av ve 10 41 20 20 PH 5 ai 42 07 08 AR la MG 8 MA bl CA e TA RE BL ET 00 12 03 01 30 30 D 26 No Ac 24 -0 -2 .0 & 30 t ti 50 3- 4- 00 R 48 Av ve 08 20 20 PH 6 ai 01 07 08 AR la 1 MA bl CA e RE OX 62 12 03 01 30 30 D 26 No Ac CA 75 -0 -2 .0 & 30 t ti RB 60 3- 4- 00 R 47 Av ve AZ 18 20 20 PH 5 ai EP 48 07 08 AR la IN 8 MA bl E CA e 30 RE 0 MG TA BL ET FU 00 12 03 01 30 30 D 26 No Ac RO 17 -0 -2 .0 & 30 t ti SE 22 3- 4- 00 R 47 Av ve AZ 90 20 20 PH 3 ai DE 78 07 08 AR la 0 MA bl 40 CA e RE MG TA BL ET WA 00 12 03 01 12 28 D 26 No Ac RF 55 -0 -2 .0 & 30 t ti AR 50 3- 4- 00 R 48 Av ve IN 83 20 20 PH 4 ai 40 07 08 AR la SO 2 MA bl DI CA e UM RE 7. 5 MG TA BL ET Immunization Name Date Rout CVX Reac Dose Comm Prov Is Faci e tion ent ider Refu lity Give sed n IIV 10-[address] VACC 1-20 VIDAL VIDAL INE 16 ABET ABET PRES H H ERV PHYS PHYS FREE ICIA ICIA NS NS INCR EASE D AG CONT ENT IM IIV 09-[address] VACC 6-20 LKEL VIDAL INE 12 D II ABET PRES QUENTIN H ERV PHYS FREE ICIA NS INCR EASE D AG CONT ENT IM PPSV 08-[address] 23 6-20 VIDAL VIDAL VACC 11 ABET ABET INE H H 2 MEDI MEDI YRS CALC CALC OR ENTE ENTE OLDE R R R FOR SUBQ /IM USE IIV3 - 141 CENT No CENT 4-20 RAL RAL VACC 10 [facility] INE IST IST SPLI HOSP HOSP T VIRU S 0.5 ML DOSA GE IM USE IIV3 11-23 141 VILL No VILL 8-20 AFLO AFLO VACC 09 R, R, INE OSIA OSIA SPLI S M S M T VIRU S 0.5 ML DOSA GE IM USE Procedures Procedure DOS Code Location Performer Comment ECG [address] [facility] ROUTINE 7 GERALDO ECG W/LEAST PHYSICIAN 12 LDS S W/I&R URNLS DIP 48348 [facility] 7 GERALDO STICK/TAB LET RGNT PHYSICIAN NON-AUTO S W/O MICRSCP PRTBLE E0431 JANAE CARDOSO GASEOUS 7 HOME HOME O2 SYS MEDICAL MEDICAL RENT; [facility] ASK O2 CONC 1 E1390 [place]E CARDOSO [place] 7 HOME HOME 85%/>02 MEDICAL MEDICAL CONC AT EQUIPME EQUIPME [facility] FLW RATE CULTURE [address] BACTERIAL 7 GERALDO GERALDO [facility] VE COLONY E EDGE E EDGE COUNT URINE URNLS DIP 34794 ST [facility] 7 GERALDO STICK/TAB LET RGNT PHYSICIAN NON-AUTO S W/O MICRSCP INJECTION J0696 ST ST 7 GERALDO GERALDO CEFTRIAXO NE SODIUM PHYSICIAN PHYSICIAN PER 250 S S [place]APE[place] [address] [facility] IC 7 GERALDO PROPHYLAC TIC/DX PHYSICIAN INJECTION S SUBQ/IM REPAIR 33908 DERMATOLO MUSIC INTERMEDI 7 GY ATE CONSULTAN S/A/T/E TS PSC 2.6-7[place] [address] AMERIPATH AMERIPATH SURG 7 PATHOLOGY [facility] I, INC. GROSS&KIRILL ROSCOPIC EXAM EXCISION 42733 DERMATOLO MUSIC MALIGNANT 7 GY LESION CONSULTAN TRUNK/ARM TS PSC /LEG > 4.0 CM H[facility] G0463 SUSAN DAVIS OUTPATIEN 7 [facility] INC INC VISIT ASSESS & MGMT PT THERAPEUT [address]1660 [facility] IC 7 GERALDO PROPHYLAC TIC/DX PHYSICIAN INJECTION S SUBQ/IM INJECTION J1040 ST 7 GERALDO GERALDO METHYLPRE DNISOLONE PHYSICIAN PHYSICIAN ACETATE S S 80 MG PRTBLE E0431 JANAE JANAE GASEOUS 7 HOME HOME O2 SYS MEDICAL MEDICAL RENT; EQUIPME EQUIPME FLWMTR HUMIDFR&M ASK O2 CONC 1 E1390 JNAAE PÉREZRELL DEL PORT 7 HOME HOME 85%/>02 MEDICAL MEDICAL CONC AT EQUIPME EQUIPME PRSC FLW RATE DESTRUCTI 06305 DERMATOLO MUSIC ON MAL 7 GY LESION CONSULTAN TRUNK/ARM TS PSC /LEG 3.1-4.0CM DESTRUCTI 60865 DERMATOLO MUSIC ON 7 GY PREMALIGN CONSULTAN ANT TS PSC LESION 2-14 EA DESTRUCTI 32002 DERMATOLO MUSIC ON 7 GY PREMALIGN CONSULTAN ANT TS PSC LESION 1ST DESTRUCTI 93859 DERMATOLO MUSIC ON MAL 7 GY LESION CONSULTAN TRUNK/ARM TS PSC /LEG 1.1-2.0CM TRANSITIO 11586 [facility] GERALDO MANAGE SRVC 14 PHYSICIAN DAY S DISCHARGE PRTBLE E0431 JANAE JANAE GASEOUS 7 HOME HOME O2 SYS MEDICAL MEDICAL RENT; EQUIPME EQUIPME FLWMTR HUMIDFR&M ASK O2 CONC 1 E1390 JANAE JANAE [place] 7 HOME HOME 85%/>02 MEDICAL MEDICAL CONC AT EQUIPME EQUIPME [facility] [address] [facility] DISCHARGE 7 GERALDO II DAY MANAGEMEN PHYSICIAN T 30 S MIN/< SBSQ 74125 [facility] [address] [facility] CARE/DAY 25 PHYSICIAN MINUTES S SBSQ 99422 [facility] [address] [facility] CARE/DAY 15 PHYSICIAN MINUTES S ECG 50831 [facility] ROUTINE 7 GERALDO ECG MED CTR W/LEAST 12 LDS I&R ONLY INITIAL 67955 [facility] 7 GERALDO II CARE/DAY 50 PHYSICIAN MINUTES S IAADIADOO [address]12 [facility] 7 GERAL[place] [address] [facility] AMERIPATH SURG 7 PATHOLOGY [facility] I, INC. I, INC. GROSS&KIRILL ROSCOPIC EXAM BX SKIN 56386 DERMATOLO REYNALDO SUBCUTANE 7 GY OUS&/MUCO CONSULTAN US TS PSC MEMBRANE 1 LESION DESTRUCTI 25840 DERMATOLO REYNALDO ON 7 GY PREMALIGN CONSULTAN ANT TS PSC LESION 1ST DESTRUCTI 35312 DERMATOLO REYNALDO ON 7 GY PREMALIGN CONSULTAN ANT TS PSC LESION 2-14 EA BIOPSY 34354 DERMATOLO REYNALOD SKIN 7 GY SUBQ&/MUC CONSULTAN OUS TS PSC MEMBRANE EA ADDL LESN O2 CONC 1 E1390 JANAE CARDOSO [place] 7 HOME HOME 85%/>02 MEDICAL MEDICAL CONC AT [facility] FLW RATE PRTBLE E0431 JANAE CARDOSO GASEOUS 7 HOME HOME O2 SYS MEDICAL MEDICAL RENT; [facility] HUM[facility]&M ASK URNLS DIP 53111 [facility] 7 GERALDO STICK/TAB LET RGNT PHYSICIAN NON-AUTO S W/O MICRSCP INJECTION J1040 ST ST 7 GERALDO GERALDO METHYLPRE DNISOLONE PHYSICIAN PHYSICIAN ACETATE S S [address] [facility] IC 7 GERALDO PROPHYLAC TIC/DX PHYSICIAN INJECTION S SUBQ/IM PRTBLE E0431 JANAE CARDOSO GASEOUS 7 HOME HOME O2 SYS MEDICAL MEDICAL RENT; EQUIPME EQUIPME FLWMTR HUMIDFR&M ASK O2 CONC 1 E1390 JANAE CARDOSO [place] 7 HOME HOME 85%/>02 MEDICAL MEDICAL CONC AT E[facility] FLW [facility]ATE COMPREHEN [address] [facility] SIVE [address] [place] [address] METABOLIC ADDIE ADDIE PANEL LIPID [address]6944 [facility] PANEL 7 [facility] ADDIE ADDIE IPRATROPI J7644 ADDIE ADDIE UM [address] [place] [address] BROMIDE DRUGS, DRUGS, INHAL INC. INC. NON-CP U DOSE PER MG ALBUTEROL J7613 ADDIE ADDIE INHAL [address] [place] [address] NON-CP DRUGS, DRUGS, PROD THRU INC. INC. DME U DOSE 1 MG PHRM Q0513 ADDIE ADDIE DISPENSIN [address] [place] [address] G FEE DRUGS, DRUGS, INHALATIO INC. INC. N RX; PER [address] B[address] [facility] COUNT [address] [place] [address] COMPLETE ADDIE ADDIE AUTO&AUTO DIFRNTL WBC COLLECTIO 29517 [facility] N VENOUS [address] [place] [address] BLOOD [place] [address] [facility] THYROID [address] [place] [address] STIMULATI ADDIE ADDIE NG HORMONE TSH PRTBLE E0431 JANAE CARDOSO GASEOUS 7 HOME HOME O2 SYS MEDICAL MEDICAL RENT; EQUIPME EQUIPME FLWMTR HUMIDFR&M ASK O2 CONC 1 E1390 JANAE CARDOSO [place] 7 HOME HOME 85%/>02 MEDICAL MEDICAL CONC AT [facility] FLW [facility]ATE INJECTION J1040 [address] METHYLPRE DNISOLONE PHYSICIAN PHYSICIAN ACETATE S S 80 MG THERAPEUT 07405 [facility] 7 GERALDO PROPHYLAC TIC/DX PHYSICIAN INJECTION S SUBQ/IM NONEMERG A0120 [facility] TRACY CO TRNSPRT: 6 [facility] 9 TRANSIT MTN AREA/OTH SYS DAY CARE S5100 ACTIVE ACTIVE SERVICES 6 DAY OF DAY OF ADULT; [facility] PER 15 N N MINUTES PRTBLE E0431 JANAE JANAE GASEOUS 6 HOME HOME O2 SYS MEDICAL MEDICAL RENT; EQUIPME EQUIPME FLWMTR HUMIDFR&M ASK O2 CONC 1 E1390 JANAE JANAE [place] 6 HOME HOME 85%/>02 MEDICAL MEDICAL CONC AT EQUIPME EQUIPME PRSC FLW RATE THERAPEUT [address] [facility] IC 6 GERALDO SUSIE PROPHYLAC TIC/DX PHYSICIAN INJECTION S SUBQ/IM INJECTION J1040 ST ST 6 GERALDO CHOW METHYLPRE DNISOLONE PHYSICIAN PHYSICIAN ACETATE S S 80 MG NONEMERG A0120 [facility] [place] TRNSPRT: 6 [facility]ANS[facility] PRN AREA/OTH SYS DAY CARE S5100 ACTIVE ACTIVE SERVICES 6 DAY OF DAY OF ADULT; [facility] PER 15 N N MINUTES PRTBLE E0431 JANAE JANAE GASEOUS 6 HOME HOME O2 SYS MEDICAL MEDICAL RENT; EQUIPME EQUIPME FLWMTR HUMIDFR&M ASK O2 CONC 1 E1390 JANAE JANAE [place] 6 HOME HOME 85%/>02 MEDICAL MEDICAL CONC AT EQUIPME EQUIPME PRSC FLW RATE DAY CARE S5100 ACTIVE ACTIVE SERVICES 6 DAY OF DAY OF ADULT; [facility] PER 15 N N MINUTES NONEMERG A0120 [facility] TRACY CO TRNSPRT: 6 [facility] 9 TRANSIT MTN AREA/OTH SYS INJECTION J0[address] ST [address] 6 GERALDO CHOW CEFTRIAXO NE SODIUM PHYSICIAN PHYSICIAN PER 250 S S [place]APE[place] [address] [facility] IC 6 GERALDO SUSIE PROPHYLAC TIC/DX PHYSICIAN INJECTION S SUBQ/IM ADMINISTR G0008 ST ST ATION OF 6 GERALDO CHOW INFLUENZA VIRUS PHYSICIAN PHYSICIAN VACCINE S S IIV 04435 [facility] VACCINE 6 GERALDO CHOW PRESERV FREE PHYSICIAN PHYSICIAN INCREASED S S AG CONTENT IM COMPREHEN 68783 [facility] SIVE 6 GERALDO CHOW METABOLIC MED CTR MED CTR PANEL COLLECTIONS DIRECTOR ST COLLECTIONS DIRECTOR ST DAY CARE S5100 ACTIVE ACTIVE SERVICES 6 DAY OF DAY OF ADULT; [facility] PER 15 N N MINUTES NONEMERG A0120 [facility] CAC TRAC[place] TRNSPRT: 6 [facility] 9 TRANSIT PRN AREA/OTH SYS NONEMERG A0120 [facility] CAC TRAC[place] TRNSPRT: 6 [facility] TRANSIT PRN AREA/OTH SYS DAY CARE S5100 ACTIVE ACTIVE SERVICES 6 DAY OF DAY OF ADULT; [facility] PER 15 N N MINUTES DAY CARE S5100 ACTIVE ACTIVE SERVICES 6 DAY OF DAY OF ADULT; [facility] PER 15 N N MINUTES NONEMERG A0120 [facility] [place] TRNSPRT: 6 [facility] 9 TRANSIT PRN AREA/OTH SYS NONEMERG A0120 [facility] [place] TRNSPRT: 6 [facility] 9 TRANSIT PRN AREA/OTH SYS DAY CARE S5100 ACTIVE ACTIVE SERVICES 6 DAY OF DAY OF ADULT; [facility] PER 15 N N MINUTES THERAPEUT 71409 [facility] GERALDO SUSIE PROPHYLAC TIC/DX PHYSICIAN INJECTION S SUBQ/IM INJECTION J0696 [facility] 6 GERALDO CHOW CEFTRIAXO NE SODIUM PHYSICIAN PHYSICIAN PER 250 S S MG INJECTION J1040 [facility] 6 GERALDO CHOW METHYLPRE DNISOLONE PHYSICIAN PHYSICIAN ACETATE S S 80 MG NONEMERG A0120 [facility] CAC TRACY [place] TRNSPRT: 6 [facility] 9 TRANSIT MTN AREA/OTH SYS DAY CARE S5100 ACTIVE ACTIVE SERVICES 6 DAY OF DAY OF ADULT; [facility] PER 15 N N MINUTES PRTBLE E0431 JANAE CARDOSO GASEOUS 6 HOME HOME O2 SYS MEDICAL MEDICAL RENT; EQUIPME EQUIPME FLWMTR HUMIDFR&M ASK O2 CONC 1 E1390 JANAE CARDOSO [place] 6 HOME HOME 85%/>02 MEDICAL MEDICAL CONC AT EQUIPME EQUIPME PRSC FLW RATE LOCM Q9967 [facility] [phone] Y Y MG/ML HOSPITAL HOSPITAL IODINE CONCENTRA TION PER ML HOSPITAL G0378 [facility] OBSERVATI 6 Y Y ON [facility] [place] [address] [place] TRACY SCALESS ANGIOGRAP 6 MEDICAL HY CHEST SERV W/CONTRAS FOUNDATIO T/NONCONT N RAST INJ J1720 [facility] 6 Y Y [facility] SODIUM SUCCINATE TO [address] [place] [address] [facility] TROPONIN 6 Y Y [facility] [place] [address] [facility] TROPONIN 6 Y Y [facility] JOSE ALFREDO BLOOD 53935 [facility] COUNT 6 Y Y COMPLETE [facility] AUTOMATED INJ J1720 [facility] 6 Y Y [facility] SODIUM SUCCINATE TO 100 MG GROUND A0425 [facility] MILEAGE 6 N-ASHISH N-ASHISH PER CO EMS CO EMS STATUTE MILE PROTHROMB 50104 [facility] IN TIME [address] [place] [address] [place] DANA SAUCEDA CERVICAL 6 MEDICAL VEE SPINE W/O SERV CONTRAST FOUNDATIO MATERIAL N ECG [address] [facility] ROUTINE 6 GERALDO SUSIE ECG W/LEAST PHYSICIAN 12 LDS S W/I&R ECG 85481 [facility] ROUTINE 6 Y Y ECG [facility] W/LEAST 12 LDS TRCG ONLY W/O I&R RADIOLOGI 54721 [facility] C EXAM 6 Y Y CHEST 2 [facility]OSP[facility] VIEWS FRONTAL&[place] [address] [place] TRUE SUSIE HEAD/BRAI 6 MEDICAL N W/O SERV CONTRAST FOUNDATIO MATERIAL N ECG 58491 [place] [facility] ROUTINE 6 MEDICAL ECG SERV W/LEAST FOUNDATIO 12 LDS N I&R ONLY BASIC 81166 [facility] 6 Y Y [facility] CALCIUM TOTAL THROMBOPL 09206 [facility] ASTIN 6 Y Y [facility] PARTIAL PLASMA/WH OLE BLOOD AMB A0427 [facility] SERVICE 6 N-ASHISH N-ASHISH ALS CO EMS CO EMS EMERGENCY TRANSPORT LEVEL 1 INJECTION J1200 [place] [address] Y [facility] RAMINE HCL UP TO 50 MG DAY CARE S5100 ACTIVE ACTIVE SERVICES 6 DAY OF DAY OF ADULT; [facility] PER 15 N N MINUTES NONEMERG A0120 [facility] SHAYLEE ARRIETA TRNSPRT: 6 [facility] 9 TRANSIT PRN AREA/OTH SYS URNLS DIP [address] [facility] 6 GERALDO KIRILL STICK/TAB LET RGNT PHYSICIAN NON-AUTO S W/O MICRSCP PRTBLE E0431 JANAE CARDOSO GASEOUS 6 HOME HOME O2 SYS MEDICAL MEDICAL RENT; EQUIPME EQUIPME FLWPRR HUMIDFR&M ASK O2 CONC 1 E1390 JANAE CARDOSO [place] 6 HOME HOME 85%/>02 MEDICAL MEDICAL CONC AT EQUIPME EQUIPME PRSC FLW RATE DAY CARE S5100 ACTIVE ACTIVE SERVICES 6 DAY OF DAY OF ADULT; [facility] PER 15 N N MINUTES NONEMERG A0120 [facility] SHAYLEE ARRIETA TRNSPRT: 6 [facility] 9 TRANSIT MTN AREA/OTH SYS NONEMERG A0120 [facility] SHAYLEE MOL[place] CO TRNSPRT: 6 [facility] 9 TRANSIT [facility] AREA/OTH SYS DAY CARE S5100 ACTIVE ACTIVE SERVICES 6 DAY OF DAY OF ADULT; [facility] PER 15 N N MINUTES DAY CARE S5100 ACTIVE ACTIVE SERVICES 6 DAY OF DAY OF ADULT; [facility] PER 15 N N MINUTES NONEMERG A0120 [facility] CAC TRACY CO TRNSPRT: 6 [facility] 9 TRANSIT MTN AREA/OTH SYS NONEMERG A0120 [facility] SH[place]E [place] CO TRNSPRT: 6 [facility] 9 TRANSIT MTN AREA/OTH SYS DAY CARE S5100 ACTIVE ACTIVE SERVICES 6 DAY OF DAY OF ADULT; [facility] PER 15 N N MINUTES DAY CARE S5100 ACTIVE ACTIVE SERVICES 6 DAY OF DAY OF ADULT; [facility] PER 15 N N MINUTES NONEMERG A0120 [facility] [place]E [place] CO TRNSPRT: 6 [facility] 9 TRANSIT MTN AREA/OTH SYS PRTBLE E0431 JANAE JANAE GASEOUS 6 HOME HOME O2 SYS MEDICAL MEDICAL RENT; EQUIPME EQUIPME FLWMTR HUMIDFR&M ASK O2 CONC 1 E1390 JANAE CARDOSO [place] 6 HOME HOME 85%/>02 MEDICAL MEDICAL CONC AT EQUIPME EQUIPME PRSC FLW RATE NONEMERG A0120 [facility] SHAYLEE [place] CO TRNSPRT: 6 [facility] 9 TRANSIT MTN AREA/OTH SYS NONEMERG A0120 [facility] SH[place]E [place] CO TRNSPRT: 6 [facility] 9 TRANSIT MTN AREA/OTH SYS DAY CARE S5100 ACTIVE ACTIVE SERVICES 6 DAY OF DAY OF ADULT; [facility] PER 15 N N MINUTES DAY CARE S5100 ACTIVE ACTIVE SERVICES 6 DAY OF DAY OF ADULT; [facility] PER 15 N N MINUTES NONEMERG A0120 [facility] SHAYLEE [place] CO TRNSPRT: 6 [facility] 9 TRANSIT MTN AREA/OTH SYS PRTBLE E0431 JANAE JANAE GASEOUS 6 HOME HOME O2 SYS MEDICAL MEDICAL RENT; EQUIPME EQUIPME FLWMTR HUMIDFR&M ASK O2 CONC 1 E1390 JANAE JANAE [place] 6 HOME HOME 85%/>02 MEDICAL MEDICAL CONC AT EQUIPME EQUIPME PRSC FLW RATE DAY CARE S5100 ACTIVE ACTIVE SERVICES 6 DAY OF DAY OF ADULT; [facility] PER 15 N N MINUTES NONEMERG A0120 [facility] CAC TRACY CO TRNSPRT: 6 [facility] REGION 9 TRANSIT [facility] AREA/OTH SYS NONEMERG A0120 [facility] CAC TRACY CO TRNSPRT: 6 [facility] REGION 9 TRANSIT [facility] AREA/OTH SYS DAY CARE S5100 ACTIVE ACTIVE SERVICES 6 DAY OF DAY OF ADULT; [facility] PER 15 N N MINUTES DAY CARE S5100 ACTIVE ACTIVE SERVICES 6 DAY OF DAY OF ADULT; [facility] PER 15 N N MINUTES NONEMERG A0120 [facility] CAC TRAC[facility] CO TRNSPRT: 6 [facility] REGION 9 TRANSIT [facility] AREA/OTH SYS INJECTION J0696 [address] 6 GERALDO GERALDO CEFTRIAXO NE SODIUM PHYSICIAN PHYSICIAN PER 250 S S MG THERAPEUT 63087 [facility] 6 GERALDO KIRILL PROPHYLAC TIC/DX PHYSICIAN INJECTION S SUBQ/IM URNLS DIP 89233 [facility] 6 GERALDO GERALDO STICK/TAB LET RGNT PHYSICIAN PHYSICIAN NON-AUTO S S W/O MICRSCP DAY CARE S5100 ACTIVE ACTIVE SERVICES 6 DAY OF DAY OF ADULT; [facility] PER 15 N N MINUTES NONEMERG A0120 [facility] CAC TRAC[place] TRNSPRT: 6 [facility] REGION 9 TRANSIT [facility] AREA/OTH SYS PRTBLE E0431 JANAE CARDOSO GASEOUS 6 HOME HOME O2 SYS MEDICAL MEDICAL RENT; [facility] H[facility] ASK O2 CONC 1 E1390 JANAE CARDOSO [place] 6 HOME HOME 85%/>02 MEDICAL MEDICAL CONC AT EQUIPHI EQUIPHI PRSC FLW RATE DAY CARE S5100 ACTIVE ACTIVE SERVICES 6 DAY OF DAY OF ADULT; [facility] PER 15 N N MINUTES NONEMERG A0120 [facility] CAC TRAC[place] TRNSPRT: 6 [facility] REGION 9 TRANSIT [facility] AREA/OTH SYS NONEMERG A0120 [facility] [place] TRNSPRT: 6 [facility] [place] [facility] 9 TRANSIT MTN AREA/OTH SYS DAY CARE S5100 ACTIVE ACTIVE SERVICES 6 DAY OF DAY OF ADULT; [facility] PER 15 N N MINUTES DAY CARE S5100 ACTIVE ACTIVE SERVICES 6 DAY OF DAY OF ADULT; [facility] PER 15 N N MINUTES NONEMERG A0120 [facility] [place] TRNSPRT: 6 [facility] [place] [facility] 9 TRANSIT MTN AREA/OTH SYS NONEMERG A0120 [facility] [place] TRNSPRT: 6 [facility] [place] [facility] 9 TRANSIT MTN AREA/OTH SYS DAY CARE S5100 ACTIVE ACTIVE SERVICES 6 DAY OF DAY OF ADULT; [facility] PER 15 N N MINUTES DAY CARE S5100 ACTIVE ACTIVE SERVICES 6 DAY OF DAY OF ADULT; [facility] PER 15 N N MINUTES NONEMERG A0120 [facility] [place] TRNSPRT: 6 [facility] [place] [facility] 9 TRANSIT MTN AREA/OTH SYS NONEMERG A0120 [facility] [place] TRNSPRT: 6 [facility] [place] [facility] 9 TRANSIT PRN AREA/OTH SYS DAY CARE S5100 ACTIVE ACTIVE SERVICES 6 DAY OF DAY OF ADULT; [facility] PER 15 N N MINUTES DAY CARE S5100 ACTIVE ACTIVE SERVICES 6 DAY OF DAY OF ADULT; [facility] PER 15 N N MINUTES NONEMERG A0120 [facility] [place] TRNSPRT: 6 [facility] [place] [facility] 9 TRANSIT MTN AREA/OTH SYS INJECTION J0696 ST RUIZ 6 GERALDO RICHARDS CEFTRIAXO NE SODIUM PHYSICIAN PER 250 S MG INJECTION J1040 [address] RUIZ 6 GERALDO RICHARDS METHYLPRE DNISOLONE PHYSICIAN ACETATE S [address] RUIZ IC 6 GERALDO RICHARDS PROPHYLAC TIC/DX PHYSICIAN INJECTION S SUBQ/IM CULTURE [address] BACTERIAL 6 [facility] MED CTR QUANTTATI COLLECTIONS DIRECTOR ST COLLECTIONS DIRECTOR ST VE COLONY COUNT URINE O2 CONC 1 [id number] JANAE PÉREZRELL [place] 6 HOME HOME 85%/>02 MEDICAL MEDICAL CONC AT EQUIPME EQUIPME PRSC FLW RATE NONEMERG A0120 [facility] [place] TRNSPRT: 6 [facility] [place] [facility] 9 TRANSIT MTN AREA/OTH SYS DAY CARE S5100 ACTIVE ACTIVE SERVICES 6 DAY OF DAY OF ADULT; [facility] PER 15 N N MINUTES PRTBLE E0431 JANAE JANAE GASEOUS 6 HOME HOME O2 SYS MEDICAL MEDICAL RENT; EQUIPME EQUIPME FLWMTR HUMIDFR&M ASK DAY CARE S5100 ACTIVE ACTIVE SERVICES 6 DAY OF DAY OF ADULT; [facility] PER 15 N N MINUTES NONEMERG A0120 [facility] TRNSPRT: 6 [facility] [place] [facility] 9 TRANSIT PRN AREA/OTH SYS AMB A0426 SYRIAN SYRIAN SERVICE 6 MEDICAL MEDICAL ALS RESPONSE RESPONSE NONEMERGE NCY TRANSPORT LEVEL 1 GROUND A0425 SYRIAN SYRIAN MILEAGE 6 MEDICAL MEDICAL PER RESPONSE RESPONSE STATUTE MILE RADIOLOGI 01763 [place] JAN C 6 MEDICAL BAR EXAMINATI SERV ON CHEST FOUNDATIO SINGLE N VIEW FRONTAL ECG 93958 MARLON IBETH PALENCIA ROUTINE 6 MEDICAL ECG SERV W/LEAST FOUNDATIO 12 LDS N I&R ONLY AMB A0422 SYRIAN SYRIAN OXYGEN&O2 6 MEDICAL MEDICAL SUPPLIES RESPONSE RESPONSE LIFE SUSTAININ G SITUATION O2 CONC 1 E1390 JANAE CARDOSO [place] 6 HOME HOME 85%/>02 MEDICAL MEDICAL CONC AT EQUIPME EQUIPME PRSC FLW RATE PRTBLE E0431 JANAE JANAE GASEOUS 6 HOME HOME O2 SYS MEDICAL MEDICAL RENT; EQUIPME EQUIPME FLWMTR HUMIDFR&M ASK RADEX 00938 RADIOLOGY HURST TERENCE SHOULDER 6 COMPLETE ASSOCIATE MINIMUM 2 S OF NOTH VIEWS INJECTION J1040 ST RUIZ 6 GERALDO JEN METHYLPRE DNISOLONE PHYSICIAN ACETATE S [address] RUIZ IC 6 GERALDO SUSIE PROPHYLAC TIC/DX PHYSICIAN INJECTION S SUBQ/IM OBSERVATI 48100 MARLON ELMORE ON/INPATI 6 [facility] FOUNDAT[facility] CARE 50 N MINUTES ECG 94120 [facility] SUTTON MADYSON ROUTINE 6 MEDICAL ECG SERV W/LEAST FOUNDATIO 12 LDS N I&R ONLY ECG [address] ST ENCINAS CHR ROUTINE 6 GERALDO ECG W/LEAST PHYSICIAN 12 LDS S EKG I&R ONLY NATRIURET [address] IC 6 GERALDO GERALDO PEPTIDE EMELINA EMELINA HEPATIC [address] FUNCTION 6 GERALDO GERALDO PANEL EMELINA TARANGO RADIOLOGI [address] C 6 GERALDO GERALDO EXAMINATI EMELINA TARANGO ON CHEST SINGLE VIEW FRONTAL ECG [address] ROUTINE 6 GERALDO GERALDO ECG EMELINA TARANGO W/LEAST 12 LDS TRCG ONLY W/O I&[place] [address] LIPASE 6 GERALDO GERALDO TARANGO SPECIALTY A0434 [facility] MERCURY CARE 6 AMBULANCE AMBULANCE TRANSPORT SERV COLLECTIONS DIRECTOR SERV COLLECTIONS DIRECTOR R R THERAPEUT [address] IC 6 GERALDO GERALDO INJECTION EEMLINA TARANGO [place] [address] TROPONIN 6 GERALDOAKBAR CASSIDYTH QUANTITAT EMELINA TARANGO JOSE ALFREDO COLLECTIO [address] N VENOUS 6 GERALDOAKBAR CHOW BLOOD EMELINA TARANGO VENIPUNCT URE BLOOD [address] COUNT 6 GERALDO GERALDO COMPLETE EMELINA TARANGO AUTO&AUTO DIFRNTL WBC THER [address] PROPH/DX 6 GERALDOKUMAR CHOW NJX IV EMELINA TARANGO PUSH SINGLE/1S T SBST/DRUG PROTHROMB [address] IN TIME 6 GERALDO GERALDO TARANGO GROUND A0425 TRACY MOLINA MILEAGE [address] [place] [address] PER LIFE LIFE STATUTE SQUAD SQUAD MILE INJECTION J2405 ST. ST. 6 GERALDO GERALDO ONDANSETR EMELINA TARANGO ON HCL PER 1 MG 5% J7060 ST. ST. DEXTROSE/ 6 GERALDO GERALDO WATER EMELINA HOWEENCE BASIC [address] METABOLIC 6 GERALDO GERALDO PANEL EMELINA TARANGO CALCIUM TOTAL THROMBOPL [address] ASTIN 6 GERALDOMIRANDA SERNABETH TIME EMELINA TARANGO PARTIAL PLASMA/WH OLE BLOOD CRITICAL [address] CARE 6 GERALDOMIRANDA CRENSHAWZABETH ILL/INJUR EMELINA TARANGO ED PATIENT INIT 30-74 MIN AMB A0427 TRACY MOLINA SERVICE [address] [place] [address] ALS LIFE LIFE EMERGENCY SQUAD SQUAD TRANSPORT LEVEL [address] RUIZ 6 GERALDOMIRANDA RICHARDS CEFTRIAXO NE SODIUM PHYSICIAN PER 250 S MG THERAPEUT [address] RUIZ IC 6 GERALDO SUSIE PROPHYLAC TIC/DX PHYSICIAN INJECTION S SUBQ/IM BLOOD [address] COUNT 6 GERALDO GERALDO COMPLETE MED CTR MED CTR AUTO&AUTO COLLECTIONS DIRECTOR ST COLLECTIONS [place] [address] FREE 6 GERALDO GERALDO THYROXINE MED CTR MED CTR COLLECTIONS [place] [address] THYROID 6 GERALDO GERALDO STIMULATI MED CTR MED CTR NG COLLECTIONS DIRECTOR ST COLLECTIONS DIRECTOR ST HORMONE TSH RADIOLOGI [address] C EXAM 6 GERALDO GERALDO CHEST 2 ADDIE ADDIE VIEWS FRONTAL&L ATERAL LIPID [address] PANEL 6 GERALDO GERALDO MED CTR MED CTR COLLECTIONS DIRECTOR ST COLLECTIONS DIRECTOR ST COMPREHEN [address] SIVE 6 GERALDO GERALDO METABOLIC MED CTR MED CTR PANEL COLLECTIONS DIRECTOR ST COLLECTIONS DIRECTOR ST RADEX 13546 RADIOLOGY KLEIMEYER SPINE 6 ERIK LUMBOSACR ASSOCIATE AL 2/3 S OF NOTH VIEWS RADEX [address] SPINE 6 GERALDO GERALDO LUMBOSACR ADDIE ADDIE AL MINIMUM 4 VIEWS PRTBLE E0431 JANAE CARDOSO GASEOUS 6 HOME HOME O2 SYS MEDICAL MEDICAL RENT; EQUIPME EQUIPME FLWPRR HUMIDFR&M ASK O2 CONC 1 E1390 JANAE CARDOSO DEL PORT 6 HOME HOME 85%/>02 MEDICAL MEDICAL CONC AT EQUIPME EQUIPME PRSC FLW RATE AMB A0427 TRACY MOLINA SERVICE [address] [place] [address] ALS LIFE LIFE EMERGENCY SQUAD SQUAD TRANSPORT LEVEL [address] HEEB CHR ROUTINE 6 GERALDO ECG W/LEAST PHYSICIAN 12 LDS S EKG I&R ONLY COMPREHEN 6300[address] ST[address] SIVE 6 GERALDO GERALDO METABOLIC EMELINA EMELINA PANEL RADIOLOGI [address] C EXAM 6 GERALDO GERALDO CHEST 2 EMELINA EMELINA VIEWS FRONTAL&L ATERAL ECG [address] ROUTINE 6 GERALDO GERALDO ECG EMELINA EMELINA W/LEAST 12 LDS TRCG ONLY W/O I&R BLOOD [address] COUNT 6 GERALDO GERALDO COMPLETE EMELINA EMELINA AUTO&AUTO DIFRNTL WBC COLLECTIO [address] N VENOUS 6 GERALDO GERALDO BLOOD EMELINA [place] [address] TROPONIN 6 GERALDO GERALDO QUANTITAT EMELINA EMELINA JOSE ALFREDO GROUND A0425 TRACY MOLINA MILEA[address] PER LIFE LIFE STATUTE SQUAD SQUAD MILE RADEX [address] RIBS UNI 6 GERALDO GERALDO W/POSTERO ADDIE ADDIE ANT CH MINIMUM 3 VIEWS O2 CONC 1 E1390 JANAE CARDOSO DEL PORT 6 HOME HOME 85%/>02 MEDICAL MEDICAL CONC AT EQUIPME EQUIPME PRSC FLW RATE PRTBLE E0431 JANAE JANAE GASEOUS 6 HOME HOME O2 SYS MEDICAL MEDICAL RENT; EQUIPME EQUIPME FLWMTR HUMIDFR&M ASK DAY CARE S5100 ACTIVE ACTIVE SERVICES 6 DAY OF DAY OF ADULT; [facility] PER 15 N N MINUTES NONEMERG A0120 LK CAC TRACY CO TRNSPRT: 6 INC PUBLIC MINI-BUS REGION 9 TRANSIT MTN AREA/OTH SY HOSPITAL G0378 [facility] OBSERVATI 6 Y Y ON HOSPITAL HOSPITAL SERVICE PER HOUR ECG 80299 [facility] ROUTINE 6 Y Y ECG [facility] W/LEAST 12 LDS TRCG ONLY W/O I&R ECG 25341 MARLON FOFANA JACQUELINE ROUTINE 6 MEDICAL ECG SERV W/LEAST FOUNDATIO 12 LDS N I&R ONLY INJECTION J1644 [facility] HEPARIN 6 Y Y [facility] PER 1000 UNITS OBSERVATI 89932 MAR[facility]ON ELMORE ON CARE 6 MEDICAL SUSI DISCHARGE SERV FOUNDATIO MANAGEMEN N T THROMBOPL 30557 [facility] ASTIN 6 Y Y TIME [facility] HOSPITAL PARTIAL PLASMA/WH OLE BLOOD INJECTION J1644 [facility] HEPARIN 6 Y Y [facility] PER 1000 UNITS AMB A0427 [facility] SERVICE 6 Fausto-ASHISH AMADOR ALS CO EMS CO EMS EMERGENCY TRANSPORT LEVEL 1 ECG 01415 MARLON CRISTINA CHI ROUTINE 6 MEDICAL ECG SERV W/LEAST FOUNDATIO 12 LDS N I&R ONLY ECG 23895 [facility] ROUTINE 6 Y Y ECG HOSPITAL HOSPITAL W/LEAST 12 LDS TRCG ONLY W/O I&R RADIOLOGI 41594 MARLON MALHOTRA C EXAM 6 MEDICAL ALAYNA CHEST 2 SERV VIEWS FOUNDATIO FRONTAL&L N ATERAL COMPREHEN 91853 [facility] 6 Y Y [facility] [place] [address] [facility] 6 Y Y HOSPITAL HOSPITAL DAY CARE S5100 ACTIVE ACTIVE SERVICES 6 DAY OF DAY OF ADULT; [facility] PER 15 N N MINUTES NONEMERG A0120 LK[facility] CAC TRACY CO TRNSPRT: 6 INC PUBLIC MINI-BUS REGION 9 TRANSIT MTN AREA/OTH SYS GROUND A0425 [facility] MILEAGE 6 N-ASHISH N-ASHISH PER CO EMS CO EMS STATUTE MILE PROTHROMB 32998 [facility] IN TIME 6 Y Y [facility] [place] [address] [facility] TROPONIN 6 Y Y [facility] JOSE ALFREDO BLOOD 99513 [facility] COUNT 6 Y Y [facility] AUTO&AUTO DIFRNTL WBC INITIAL 05319 MAR[facility]ON ELMORE OBSERVATI 6 MEDICAL SUSI ON SERV CARE/DAY FOUNDATIO 30 N MINUTES INJECTION J2405 [facility] 6 Y Y [facility] ON HCL PER 1 MG LOCM Q9967 [facility] [phone] Y Y MG/ML [facility] [place] [address] [facility] ANGIOGRAP 6 Y Y HY [facility] [address] W/CONTRAS T/NONCONT RAST METHYLPRE J7509 [facility] DNISOLONE 6 Y Y ORAL PER [facility] 4 MG INJECTION J1644 [facility] HEPARIN 6 Y Y SODIUM [facility] PER 1000 UNITS BASIC 13788 [facility] METABOLIC 6 Y Y PANEL [facility] CALCIUM TOTAL BASIC 90388 [facility] METABOLIC 6 Y Y PANEL [facility] CALCIUM TOTAL INJECTION J1644 [facility] HEPARIN 6 Y Y SODIUM [facility] PER 1000 UNITS INJECTION J3475 [facility] 6 Y Y MAGNESIUM [facility] SULPHATE PER 500 MG METHYLPRE J7509 [facility] DNISOLONE 6 Y Y ORAL PER [facility] 4 MG RADIOLOGI 69571 [facility] C 6 Y Y EXAMINATI [facility] ON CHEST SINGLE VIEW FRONTAL ECG 00820 [facility] ROUTINE 6 Y Y ECG [facility] W/LEAST 12 LDS TRCG ONLY W/O I&[place] [address] [facility] MAGNESIUM 6 Y Y HOSPITAL [facility] G0378 [facility] OBSERVATI 6 Y Y ON HOSPITAL HOSPITAL SERVICE PER HOUR ECG 85016 MARLON CRISTINA CHI ROUTINE 6 MEDICAL ECG SERV W/LEAST FOUNDATIO 12 LDS N I&R ONLY PRESSURIZ 07930 [facility] ED/NONPRE 6 Y Y [facility] [place] [address] [facility] TROPONIN 6 Y Y [facility] JOSE ALFREDO BLOOD 26092 [facility] COUNT 6 Y Y [facility] [address] [facility] PHOSPHORU Y Y [facility] INORGANIC INJECTION J2405 [facility] 6 Y Y [facility] ON HCL PER [address] 6 GERALDOMIRANDA CHOW ONDANSETR ADDIE ADDIE ON HCL PER [address] MORPHINE 6 GERALDO GERALDO SULFATE ADDIE ADDIE UP TO 10 MG GROUND A0425 [facility] MILEAGE 6 [facility] OF [facility] MILE PROTHROMB 45582 [facility] IN TIME 6 Y Y [facility] THER [address] PROPH/DX 6 GERALDO CHOW NJX IV ADDIE ADDIE PUSH SINGLE/1S T SBST/DRUG BLOOD 42516 [facility] COUNT 6 Y Y [facility] [place] [address] [facility] TROPONIN 6 Y Y [facility] JOSE ALFREDO BLOOD [address] COUNT 6 GERALDO GERALDO COMPLETE ADDIE ADDIE AUTO&AUTO DIFRNTL WBC COLLECTIO [address] N VENOUS 6 GERALDO CASSIDYTH BLOOD ADDIE ADDIE VENIPUNCT URE AMB A0426 [facility] SERVICE 6 [facility] OF [facility] NCY TRANSPORT LEVEL 1 ECG 96172 [place] IBETH CHI ROUTINE 6 MEDICAL ECG SERV W/LEAST FOUNDATIO 12 LDS N I&[place] [address] [facility] 6 Y Y [facility] RADIOLOGI 66567 [facility] C [address] [place] [address] EXAMINATI ADDIE ADDIE ON CHEST SINGLE VIEW FRONTAL ECG [address] ST[address] . ROUTINE 6 [facility] ECG ADDIE ADDIE W/LEAST 12 LDS TRCG ONLY W/O I&R CT THORAX 98251 RADIOLOGY LUBBERS W/O 6 SHIRAZ CONTRAST ASSOCIATE MATERIAL S [facility] COMPREHEN 20392 [facility] 6 Y Y [facility] PANEL BASIC 07028 [facility] METABOLIC [address] [place] [address] PANEL ADDIE ADDIE CALCIUM TOTAL O2 CONC 1 E1390 JANAE CARDOSO DEL PORT 6 HOME HOME 85%/>02 MEDICAL MEDICAL CONC AT EQUIPME EQUIPME PRSC FLW RATE PRTBLE E0431 JANAE CARDOSO GASEOUS 6 HOME HOME O2 SYS MEDICAL MEDICAL RENT; EQUIPME EQUIPME FLWMTR HUMIDFR&M ASK DAY CARE S5100 ACTIVE ACTIVE SERVICES 6 DAY OF DAY OF ADULT; [facility] PER 15 N N MINUTES NONEMERG A0120 [facility] CAC TRACY CO TRNSPRT: 6 [facility] PUBLIC MINI-BUS REGION 9 TRANSIT [facility] AREA/OTH SYS NONEMERG A0120 [facility] CAC TRACY CO TRNSPRT: 6 [facility] PUBLIC MINI-BUS REGION 9 TRANSIT PRN AREA/OTH SYS DAY CARE S5100 ACTIVE ACTIVE SERVICES 6 DAY OF DAY OF ADULT; [facility] PER 15 N N MINUTES DAY CARE S5100 ACTIVE ACTIVE SERVICES 6 DAY OF DAY OF ADULT; [facility] PER 15 N N MINUTES NONEMERG A0120 [facility] CAC TRACY CO TRNSPRT: 6 [facility] PUBLIC MIN[place] REGION 9 TRANSIT [facility] AREA/OTH SYS NONEMERG A0120 [facility] CAC TRACY CO TRNSPRT: 6 INC PUBLIC MINI-BUS REGION 9 TRANSIT MTN AREA/OT SYS DAY CARE S5100 ACTIVE ACTIVE SERVICES 6 DAY OF DAY OF ADULT; [facility] PER 15 N N MINUTES PRTBLE E0431 JANAE CARDOSO GASEOUS 5 HOME HOME O2 SYS MEDICAL MEDICAL RENT; EQUIPME EQUIPME FLWMTR HUMIDFR&M ASK O2 CONC 1 E1390 JANAE CARDOSO DEL PORT 5 HOME HOME 85%/>02 MEDICAL MEDICAL CONC AT EQUIPME EQUIPME PRSC FLW RATE DAY CARE S5100 ACTIVE ACTIVE SERVICES 5 DAY OF DAY OF ADULT; [facility] PER 15 N N MINUTES NONEMERG A0120 LK CAC TRACY CO TRNSPRT: 5 [facility] PUBLIC [facility] REGION 9 TRANSIT [facility] AREA/[facility] SYS PHYSICAL 49338 ACTIVE ACTIVE THERAPY 5 DAY OF DAY OF EVALUATIO [facility] N N N NONEMERG A0120 [facility] CAC TRACY CO TRNSPRT: 5 [facility] REGION 9 TRANSIT [facility]/OT SYS DAY CARE S5100 ACTIVE ACTIVE SERVICES 5 DAY OF DAY OF ADULT; [facility] PER 15 N N MINUTES SBSQ [address] ANT CARE/DAY 35 PHYSICIAN MINUTES S SBSQ 01139 [facility] 5 [place]OLERA KIRILL CARE/DAY DO INC 25 MINUTES SBSQ 32375 [facility] 5 [place] CARE/DAY DO INC 25 MINUTES SBSQ 13786 [place] [address] GERALDO ANT CARE/DAY 35 PHYSICIAN MINUTES S PULMONARY 23449 RADIOLOGY NEILS GLORIA 5 VENTILATI ASSOCIATE ON & S [facility] PERFUSION IMAGING RADIOLOGI 59728 RADIOLOGY LUBBERS C EXAM 5 SHIRAZ CHEST 2 ASSOCIATE VIEWS S [facility] FRONTAL&L ATERAL SBSQ 69170 [facility] 5 [place]OLER[place] KIRILL CARE/DAY DO INC 35 MINUTES [address] CARE/DAY MAR 50 PHYSICIAN MINUTES S INITIAL [address] [facility] 5 GERALDO ANT CARE/DAY 50 PHYSICIAN MINUTES S INITIAL 19927 [facility] 5 [place]ER[place] KIRILL CARE/DAY DO INC [address]ES [address] [facility] TTHRC R-T 5 GERALDO ARVIND 2D W/WOM-MOD PHYSICIAN E COMPL S SPEC&COLR D ECG [address] [facility] [place] ROUTINE 5 GERALDO ECG MED CTR W/LEAST 12 LDS I&R ONLY ECG [address] [facility] [place] ROUTINE 5 GERALDO ECG MED CTR W/LEAST 12 LDS I&R ONLY DAY CARE S5100 ACTIVE ACTIVE SERVICES 5 DAY OF DAY OF ADULT; [facility] PER 15 N N MINUTES RADIOLOGI 74485 [facility] C 5 N N EXAMINATI COMMUNTIY COMMUNTIY ON CHEST HOSPITA HOSPITA SINGLE VIEW FRONTAL ECG 28020 [facility] ROUTINE 5 N N ECG COMMUNTIY COMMUNTIY W/LEAST HOSPITA HOSPITA 12 LDS TRCG ONLY W/O I&R COMPREHEN 20395 [facility] SIVE 5 N N METABOLIC COMMUNTIY COMMUNTIY PANEL HOSPITA HOSPITA ECG 96086 [facility] ROUTINE 5 [facility] ECG EMERGENCY W/LEAST PHYS 12 LDS I&R ONLY NATRIURET 25385 [facility] IC 5 N N PEPTIDE COMMUNTIY COMMUNTIY HOSPITA HOSPITA BLOOD 84709 [facility] OCCULT 5 N N PEROXIDAS COMMUNTIY COMMUNTIY E ACTV HOSPITA HOSPITA QUAL FECES 1-3 SPEC BLOOD 51061 [facility] GASES ANY 5 N N COMMUNTIY COMMUNTIY COMBINATI HOSPITA HOSPITA ON PH PCO2 PO2 CO2 HCO3 THER 29734 [facility] PROPH/DX 5 N N NJX IV COMMUNTIY COMMUNTIY PUSH HOSPITA HOSPITA SINGLE/1S T SBST/DRUG GROUND A0425 [facility] LIFE LIFE [place] [address] [facility] TROPONIN 5 N N QUANTITAT COMMUNTIY COMMUNTIY JOSE ALFREDO HOSPITA HOSPITA ARTERIAL 42993 [facility] PUNCTURE 5 N N WITHDRAWA COMMUNTIY COMMUNTIY L BLOOD HOSPITA HOSPITA DX COLLECTIO 80786 [facility] N VENOUS 5 N N BLOOD COMMUNTIY COMMUNTIY VENIPUNCT HOSPITA HOSPITA URE BLOOD 41617 [facility] COUNT 5 N N COMPLETE COMMUNTIY COMMUNTIY AUTO&AUTO HOSPITA HOSPITA DIFRNTL WBC AMB A0427 TRACY TRACY SERVICE 5 [facility] ALS LIFE LIFE EMERGENCY SQUAD SQUAD TRANSPORT LEVEL 1 O2 CONC 1 E1390 JANAE CARDOSO DEL PORT 5 HOME HOME 85%/>02 MEDICAL MEDICAL CONC AT EQUIPME EQUIPME PRSC FLW RATE PRTBLE E0431 JANAE CARDOSO GASEOUS 5 HOME HOME O2 SYS MEDICAL MEDICAL RENT; EQUIPME EQUIPME FLWMTR HUMIDFR&M ASK DAY CARE S5100 ACTIVE ACTIVE SERVICES 5 DAY OF DAY OF ADULT; [facility] PER 15 N N MINUTES NONEMERG A0120 [facility] CAC TRACY CO TRNSPRT: 5 INC PUBLIC MINI-BUS REGION 9 TRANSIT PRN AREA/OT SYS PHYSICAL 81048 ACTIVE ACTIVE THERAPY 5 DAY OF DAY OF EVALUATIO [facility] N N N BLOOD [address] COUNT 5 GERALDO GERALDO COMPLETE MED CTR MED CTR AUTOMATED COLLECTIONS DIRECTOR ST COLLECTIONS DIRECTOR ST SUSCEPTIB [address] LTY STDY 5 GERALDO GERALDO ANTIMICRB MED CTR MED CTR IAL COLLECTIONS DIRECTOR ST COLLECTIONS DIRECTOR ST MICRO/AGA R DILUTJ COMPREHEN [address] SIVE 5 GERALDO GERALDO METABOLIC MED CTR MED CTR PANEL COLLECTIONS DIRECTOR ST COLLECTIONS DIRECTOR ST CULTURE [address] BACTERIAL 5 GERALDO GERALDO MED CTR MED CTR QUANTTATI COLLECTIONS DIRECTOR ST COLLECTIONS DIRECTOR ST VE COLONY COUNT URINE CUL BACT [address] AEROBIC 5 GERALDO GERALDO ADDL MED CTR MED CTR METHS COLLECTIONS DIRECTOR ST COLLECTIONS DIRECTOR ST DEFINITIV E EA ISOL DAY CARE S5100 ACTIVE ACTIVE SERVICES 5 DAY OF DAY OF ADULT; [facility] PER 15 N N MINUTES NONEMERG A0120 [facility] CAC SENIOR TRNSPRT: 5 INC SERVICES MINI-BUS REGION 9 [facility]/OT SYS NONEMERG A0120 [facility] CAC SENIOR TRNSPRT: 5 INC SERVICES MINI-BUS REGION 9 [facility]/OT SYS DAY CARE S5100 ACTIVE ACTIVE SERVICES 5 DAY OF DAY OF ADULT; [facility] PER 15 N N MINUTES NONEMERG A0120 [facility] CAC SENIOR TRNSPRT: 5 INC SERVICES [facility] REGION [address] [place] [address]/OT SYS ALBUTEROL J7613 ADDIE ADDIE INHAL [address] [place] [address] NON-CP DRUGS, DRUGS, PROD THRU INC. INC. DME U DOSE 1 MG IPRATROPI J7644 ADDIE ADDIE UM [address] [place] [address] BROMIDE DRUGS, DRUGS, INHAL INC. INC. NON-CP U DOSE PER MG PHRM Q0513 ADDIE ADDIE DISPENSIN [address] [place] [address] G FEE DRUGS, DRUGS, INHALATIO INC. INC. N RX; PER 30 DAYS NONEMERG A0120 [facility] SENIOR TRNSPRT: [address]/OT SYS DAY CARE S5100 ACTIVE ACTIVE SERVICES 5 DAY OF DAY OF ADULT; [facility] PER 15 N N MINUTES PRTBLE E0431 JANAE CARDOSO GASEOUS 5 HOME HOME O2 SYS MEDICAL MEDICAL RENT; EQUIPME EQUIPME FLWMTR HUMIDFR&M ASK O2 CONC 1 E1390 JANAE CARDOSO DEL PORT 5 HOME HOME 85%/>02 MEDICAL MEDICAL CONC AT EQUIPME EQUIPME PRSC FLW RATE NONEMERG A0120 [facility] CAC SENIOR TRNSPRT: 5 INC SERVICES MINI-BUS REGION 9 [facility]/OT SYS NONEMERG A0120 [facility] CAC SENIOR TRNSPRT: 5 INC SERVICES MINI-BUS REGION 9 [facility]/OT SYS DAY CARE S5100 ACTIVE ACTIVE SERVICES 5 DAY OF DAY OF ADULT; [facility] PER 15 N N MINUTES DAY CARE S5100 ACTIVE ACTIVE SERVICES 5 DAY OF DAY OF ADULT; [facility] PER 15 N N MINUTES NONEMERG A0120 [facility] CAC SENIOR TRNSPRT: 5 INC SERVICES MINI-BUS REGION 9 OF [facility]/OTH SYS NONEMERG A0120 [facility] CAC SENIOR TRNSPRT: 5 INC SERVICES MINI-BUS REGION 9 OF [facility] SYS PHYSICAL 59941 ACTIVE ACTIVE THERAPY 5 DAY OF DAY OF EVALUATIO [facility] N N N DAY CARE S5100 ACTIVE ACTIVE SERVICES 5 DAY OF DAY OF ADULT; [facility] PER 15 N N MINUTES NONEMERG A0120 [facility] CAC SENIOR TRNSPRT: 5 INC SERVICES MINI-BUS REGION 9 [facility]/OT SYS NONEMERG A0120 [facility] CAC SENIOR TRNSPRT: 5 INC SERVICES MINI-BUS REGION 9 OF [facility]/OT SYS DAY CARE S5100 ACTIVE ACTIVE SERVICES 5 DAY OF DAY OF ADULT; [facility] PER 15 N N MINUTES DAY CARE S5100 ACTIVE ACTIVE SERVICES 5 DAY OF DAY OF ADULT; [facility] PER 15 N N MINUTES NONEMERG A0120 [facility] CAC SENIOR TRNSPRT: 5 INC SERVICES MINI-BUS REGION 9 OF [facility]/OTH SYS NONEMERG A0120 [facility] CAC SENIOR TRNSPRT: 5 INC SERVICES MINI-BUS REGION 9 OF [facility]/OT SYS DAY CARE S5100 ACTIVE ACTIVE SERVICES 5 DAY OF DAY OF ADULT; [facility] PER 15 N N MINUTES DAY CARE S5100 ACTIVE ACTIVE SERVICES 5 DAY OF DAY OF ADULT; [facility] PER 15 N N MINUTES NONEMERG A0120 [facility] CAC SENIOR TRNSPRT: 5 INC SERVICES MINI-BUS REGION 9 [facility]/OTH SYS NONEMERG A0120 [facility] CAC SENIOR TRNSPRT: 5 INC SERVICES MINI-BUS REGION 9 [facility]/OTH SYS DAY CARE S5100 ACTIVE ACTIVE SERVICES 5 DAY OF DAY OF ADULT; [facility] PER 15 N N MINUTES NONEMERG A0120 [facility] CAC SENIOR TRNSPRT: 5 [facility] [place] [facility] 9 [facility]/OTH SYS NONEMERG A0120 [facility] CAC SENIOR TRNSPRT: 5 [facility] [place] [facility] 9 [facility]/OT SYS DAY CARE S5100 ACTIVE ACTIVE SERVICES 5 DAY OF DAY OF ADULT; [facility] PER 15 N N MINUTES DAY CARE S5100 ACTIVE ACTIVE SERVICES 5 DAY OF DAY OF ADULT; [facility] PER 15 N N MINUTES PRTBLE [id number] JANAE CARDOSO GASEOUS 5 HOME HOME O2 SYS MEDICAL MEDICAL RENT; EQUIPME EQUIPME FLWMTR HUMIDFR&M ASK NONEMERG A0120 [facility] CAC SENIOR TRNSPRT: 5 INC SERVICES [facility] REGION 9 [facility]/OT SYS O2 CONC 1 [id number] JANAE CARDOSO DEL PORT 5 HOME HOME 85%/>02 MEDICAL MEDICAL CONC AT EQUIPME EQUIPME PRSC FLW RATE NONEMERG A0120 [facility] CAC SENIOR TRNSPRT: 5 [facility] [place] [facility] [facility]/OTH SYS DAY CARE S5100 ACTIVE ACTIVE SERVICES 5 DAY OF DAY OF ADULT; [facility] PER 15 N N MINUTES ECG 95761 [facility] COUGHLIN ROUTINE 5 MEDICAL ECG SERV W/LEAST FOUNDATIO 12 LDS N I&R ONLY ALBUTEROL [id number] ADDIE ADDIE INHAL 5 [facility] NON-CP DRUGS, DRUGS, PROD THRU INC. INC. DME U DOSE 1 MG IPRATROPI [id number] ADDIE ADDIE UM 5 [facility] BROMIDE DRUGS, DRUGS, INHAL INC. INC. NON-CP U DOSE PER MG PHRM Q0513 ADDIE ADDIE DISPENSIN [address] [place] [address] G FEE DRUGS, DRUGS, INHALATIO INC. INC. N RX; PER 30 DAYS OBSERVATI 10512 [facility] SANTIAGO ON CARE 5 MEDICAL DISCHARGE SERV FOUNDATIO MANAGEMEN N T AMB A0431 AIR AIR SERVICE 5 METHODS METHODS CONVNTION [facility] AIR SRVC TRANSPORT [address] [place] [address] NEW NEW TROPONIN 5 [facility] QUANTITAT [facility] JOSE ALFREDO COLLECTIO 43036 NEW NEW N VENOUS 5 [facility] [place]LOOD [place] [address] NEW NEW ABDOMEN 5 [facility] W/O MED CTR MED CTR CONTRAST MATERIAL PRESSURIZ 03019 NEW NEW ED/NONPRE 5 [facility] SSURIZED MED CTR MED CTR INHALATIO N TREATMENT CUL BACT 29428 NEW NEW KRYSTYNA 5 [facility] AEROBIC MED CTR MED CTR ISOL XCPT UR BLOOD/STO OL INITIAL 33510 [facility] SANTIAGO OBSERVATI 5 MEDICAL ON SERV CARE/DAY FOUNDATIO 70 N MINUTES ROTARY A0436 AIR AIR WING AIR 5 METHODS METHODS MILEAGE [facility] PER STATUTE MILE DEMO&/JOO 76157 NEW NEW L OF PT 5 [facility] UTILIZ MED CTR MED CTR AERSL GEN/NEB/I NHLR/IP ECG 91591 [facility] BLISS ROUTINE 5 MEDICAL NAN ECG SERV W/LEAST FOUNDATIO 12 LDS N I&R ONLY ECHO 65046 [facility] ENCINAS AYALA TRANSTHOR 5 MEDICAL C R-T 2D SERV W/WO FOUNDATIO M-MODE N REC F-UP/LMTD RADIOLOGI 39593 NEW NEW C 5 [facility] H[facility]IZ[facility] EXAMINATI MED CTR MED CTR ON CHEST SINGLE VIEW FRONTAL CT THORAX 75636 F&S BARBA, W/O 5 RADIOLOGY JR QUENTIN CONTRAST PC MATERIAL RADIOLOGI 86517 [facility] C EXAM 5 MEDICAL [place] CHEST 2 SERV VIEWS FOUNDATIO FRONTAL&L N ATERAL ECG 22154 NEW NEW ROUTINE 5 [facility] H[facility]IZONS ECG MED CTR MED CTR W/LEAST 12 LDS TRCG ONLY W/O I&R RADIOLOGI 99273 NEW NEW C EXAM 5 [facility]ORIZONS CHEST 2 MED CTR MED CTR VIEWS FRONTAL&L ATERAL COMPREHEN 31501 NEW NEW SIVE 5 [facility] METABOLIC MED CTR MED CTR PANEL DAY CARE S5100 ACTIVE ACTIVE SERVICES 5 DAY OF DAY OF ADULT; [facility] PER 15 N N MINUTES HOSPITAL [id number] NEW NEW OBSERVATI 5 [facility]IZ[facility] ON MED CTR MED CTR SERVICE PER HOUR IMMUNOASS 26841 NEW NEW AY 5 [facility] ANALYTE MED CTR MED CTR QUANTITAT JOSE ALFREDO NOS DEMO&/JOO 10922 NEW NEW L OF PT 5 H[facility]IZ[facility] HORIZONS UTILIZ MED CTR MED CTR AERSL GEN/NEB/I NHLR/IP THER 02204 NEW NEW PROPH/DX 5 HORIZONS HORIZONS NJX IV MED CTR MED CTR PUSH SINGLE/1S T SBST/DRUG NONEMERG A0120 LKLP CAC SENIOR TRNSPRT: 5 INC SERVICES [place] 9 [facility]/OT SYS PRESSURIZ 07748 NEW NEW ED/NONPRE 5 [facility]IZONS HORIZONS SSURIZED MED CTR MED CTR INHALATIO N TREATMENT THERAPEUT 34443 NEW NEW IC 5 [facility]IZ[facility] HORIZONS INJECTION MED CTR MED CTR IV PUSH EACH NEW DRUG COLLECTIO 44603 NEW NEW N VENOUS 5 [facility]IZONS BLOOD MED CTR MED CTR VENIPUNCT URE BLOOD 25084 NEW NEW COUNT 5 [facility]IZ[facility] COMPLETE MED CTR MED CTR AUTO&AUTO DIFRNTL WBC THER 18924 NEW NEW PROPH/DX 5 HORIZONS HORIZONS NJX EA MED CTR MED CTR SEQL IV PUSH SBST/DRUG FAC NONEMERG A0120 LKLP CAC SENIOR TRNSPRT: 5 [facility] [place] [facility] 9 [facility]OT SYS DAY CARE S5100 ACTIVE ACTIVE SERVICES 5 DAY OF DAY OF ADULT; [facility] PER 15 N N MINUTES DAY CARE S5100 ACTIVE ACTIVE SERVICES 5 DAY OF DAY OF ADULT; [facility] PER 15 N N MINUTES NONEMERG A0120 LKLP CAC SENIOR TRNSPRT: 5 INC SERVICES [place] 9 [facility]/OTH SYS NONEMERG A0120 LKLP CAC SENIOR TRNSPRT: 5 INC SERVICES [place] [facility] 9 [facility]OTH SYS DAY CARE S5100 ACTIVE ACTIVE SERVICES 5 DAY OF DAY OF ADULT; [facility] PER 15 N N MINUTES DAY CARE S5100 ACTIVE ACTIVE SERVICES 5 DAY OF DAY OF ADULT; [facility] PER 15 N N MINUTES NONEMERG A0120 LKLP CAC SENIOR TRNSPRT: 5 INC SERVICES [place] 9 [facility]/OTH SYS NONEMERG A0120 LK CAC SENIOR TRNSPRT: 5 INC SERVICES [place] 9 [facility]/OTH SYS AMBULANCE A0429 [facility] SERVICE 5 N-ASHISH Lambert-ASHISH BLS CO EMS CO EMS EMERGENCY TRANSPORT GROUND A0425 [facility] MILEAGE 5 Fausto-ASHISH AMADOR PER CO EMS CO EMS STATUTE MILE BLOOD 05536 [facility] COUNT 5 N N COMPLETE COMMUNTIY COMMUNTIY AUTO&AUTO HOSPITA HOSPITA DIFRNTL WBC COLLECTIO 89141 [facility] N VENOUS 5 N N BLOOD COMMUNTIY COMMUNTIY VENIPUNCT HOSPITA HOSPITA URE DAY CARE S5100 ACTIVE ACTIVE SERVICES 5 DAY OF DAY OF ADULT; [facility] PER 15 N N MINUTES ECG 91715 [facility] ROUTINE 5 N N ECG COMMUNTIY COMMUNTIY W/LEAST HOSPITA HOSPITA 12 LDS TRCG ONLY W/O I&R ECG 19672 [facility] ROUTINE 5 CAMILLA CHANCE ECG EMERGENCY W/LEAST PHYS 12 LDS I&R ONLY BASIC 04573 [facility] METABOLIC 5 N N PANEL COMMUNTIY COMMUNTIY CALCIUM HOSPITA HOSPITA TOTAL DAY CARE S5100 ACTIVE ACTIVE SERVICES 5 DAY OF DAY OF ADULT; [facility] PER 15 N N MINUTES NONEMERG A0120 LKLP CAC SENIOR TRNSPRT: 5 INC SERVICES [place] 9 [facility]OTH SYS NONEMERG A0120 LKLP CAC SENIOR TRNSPRT: 5 INC SERVICES [place] 9 [facility]OTH SYS DAY CARE S5100 ACTIVE ACTIVE SERVICES 5 DAY OF DAY OF ADULT; [facility] PER 15 N N MINUTES CREATINE 70689 [facility] KINASE 5 Y Y TOTAL [facility] COMPREHEN 55394 [facility] SIVE 5 Y Y METABOLIC [facility] PANEL LIPID 34859 [facility] PANEL 5 [place] [address] [facility] FREE 5 Y Y THYROXINE [facility] BLOOD 03316 [facility] COUNT 5 Y Y COMPLETE [facility] [place] [address] [facility] THYROID 5 Y Y STIMULATI [facility] NG HORMONE TSH DAY CARE S5100 ACTIVE ACTIVE SERVICES 5 DAY OF DAY OF ADULT; [facility] PER 15 N N MINUTES NONEMERG A0120 LKLP CAC SENIOR TRNSPRT: 5 INC SERVICES [place] 9 [facility]OTH SYS PRTBLE E0431 JANAE CARDOSO GASEOUS 5 HOME HOME O2 SYS MEDICAL MEDICAL RENT; [facility] HUM[facility]&M ASK O2 CONC 1 E1390 JANAE CARDOSO DEL PORT 5 HOME HOME 85%/>02 MEDICAL MEDICAL CONC AT EQUIPME EQUIPHI PRSC FLW RATE CV STRS 02600 [place] [facility] TST 5 MEDICAL XERS&/OR SERV RX CONT FOUNDATIO ECG I&R N ONLY ALBUTEROL J7613 YOUR YOUR INHAL 5 PHARMACY PHARMACY [facility] PROD THRU DME U DOSE 1 MG CV STRS 75858 [facility]EL[facility] CHANCE TST 5 MEDICAL XERS&/OR SERV RX CONT FOUNDATIO ECG W/O N I&R CV STRS 83069 [facility] TST 5 Y Y XERS&/OR HOSPITAL HOSPITAL RX CONT ECG TRCG ONLY ADMN SET A7003 YOUR YOUR SM VOL 5 PHARMACY PHARMACY NONFILTR [facility] PNEUMAT NEBULIZR DISPBL TECHNETIU A9500 [facility] TC-99M 5 Y Y [facility] DX PER STUDY DOSE DEBRIDEME [address] [place] NAIL 5 ANY METHOD 6/> MYOCARDIA 98767 [facility]EL[facility] CHANCE L SPECT 5 MEDICAL MULTIPLE SERV STUDIES FOUNDATIO N PHRM Q0513 YOUR YOUR DISPENSIN 5 PHARMACY PHARMACY G FEE [facility] INHALATIO N RX; PER 30 DAYS SUSCEPTIB 17735 NEW NEW LTY STDY 5 HORIZONS H[facility]IZONS ANTIMICRB MED CTR MED CTR IAL MICRO/AGA R DILUTJ URNLS DIP 62734 NEW NEW 5 HORIZONS HORIZONS STICK/TAB MED CTR MED CTR LET RGNT AUTO W/O MICROSCOP Y URINALYSI 51361 NEW NEW S 5 [facility]IZ[facility] HORIZONS MICROSCOP MED CTR MED CTR IC ONLY CUL BACT 77514 NEW NEW AEROBIC 5 [facility]IZ[facility]IZONS ADDL MED CTR MED CTR METHS DEFINITIV E EA ISOL CULTURE 82386 NEW NEW BACTERIAL 5 [facility]IZ[facility] HORIZONS MED CTR MED CTR QUANTTATI VE COLONY COUNT URINE O2 CONC 1 E1390 JANAE CARDOSO DEL PORT 5 HOME HOME 85%/>02 MEDICAL MEDICAL CONC AT EQUIPME EQUIPME PRSC FLW RATE PRTBLE E0431 JANAE JANAE GASEOUS 5 HOME HOME O2 SYS MEDICAL MEDICAL RENT; EQUIPME EQUIPME FLWMTR HUMIDFR&M ASK PRTBLE E0431 JANAE PÉREZRELL GASEOUS 5 HOME HOME O2 SYS MEDICAL MEDICAL RENT; EQUIPME EQUIPME FLWMTR HUMIDFR&M ASK O2 CONC 1 E1390 JANAE JANAE DEL PORT 5 HOME HOME 85%/>02 MEDICAL MEDICAL CONC AT EQUIPME EQUIPME PRSC FLW RATE PORTABLE E0443 JANAE JANAE O2 5 HOME HOME CONTENTS MEDICAL MEDICAL GASEOUS 1 EQUIPME EQUIPME MO SUPPLY=1 UNIT PORTABLE E0443 JANAE JANAE O2 5 HOME HOME CONTENTS MEDICAL MEDICAL GASEOUS 1 EQUIPME EQUIPME MO SUPPLY=[address] 5 GERALDO GERALDO METHYLPRE DNISOLONE PHYSICIAN PHYSICIAN ACETATE S S [address] WILLOBY IC 5 GERALDO KIRILL PROPHYLAC TIC/DX PHYSICIAN INJECTION S SUBQ/IM NEBULIZER E0570 PATIENT PATIENT WITH 5 AIDS INC AIDS INC COMPRESSO R NEBULIZER E0570 PATIENT PATIENT WITH 5 AIDS INC AIDS INC COMPRESSO R PORTABLE E0443 JANAE JANAE O2 5 HOME HOME CONTENTS MEDICAL MEDICAL GASEOUS 1 EQUIPME EQUIPME MO SUPPLY=1 UNIT NEBULIZER E0570 PATIENT PATIENT WITH 4 AIDS INC AIDS INC COMPRESSO R PORTABLE E0443 JANAE JANAE O2 4 HOME HOME CONTENTS MEDICAL MEDICAL GASEOUS 1 EQUIPME EQUIPME MO SUPPLY=1 UNIT NEBULIZER E0570 PATIENT PATIENT WITH 4 AIDS INC AIDS INC COMPRESSO R PORTABLE E0443 JANAE JANAE O2 4 HOME HOME CONTENTS MEDICAL MEDICAL GASEOUS 1 EQUIPME EQUIPME MO SUPPLY=[address] LUMBAR 86144 RADIOLOGY BRANDSER SPINE 4 GLORIA W/O ASSOCIATE CONTRAST S OF NOTH MATERIAL DEBRIDEME 88159 [facility] ARON NT NAIL 4 ANY METHOD 6/> THERAPEUT [address]48 ST THRELKELD IC 4 GERALDO II QUENTIN PROPHYLAC TIC/DX PHYSICIAN INJECTION S SUBQ/IM INJECTION J1040 ST ST 4 GERALDO GERALDO METHYLPRE DNISOLONE PHYSICIAN PHYSICIAN ACETATE S S [address] LTY STDY 4 GERALDO GERALDO ANTIMICRB ADDIE ADDIE IAL MICRO/AGA R DILUTJ RADEX 24817 RADIOLOGY HURST TERENCE SPINE 4 LUMBOSACR ASSOCIATE AL 2/3 S OF NOT VIEWS URNLS DIP 06271 ST THRELKELD 4 GERALDO II QUENTIN STICK/TAB LET RGNT PHYSICIAN NON-AUTO S W/O MICRSCP RADEX [address] SPINE 4 [facility] THORACIC ADDEI ADDIE 2 VIEWS RADEX 54777 RADIOLOGY HURST TERENCE SPINE 4 THORACIC ASSOCIATE 3 VIEWS S OF NOT CUL BACT [address] AEROBIC 4 [facility] ADDL ADDIE ADDIE METHS DEFINITIV E EA ISOL CULTURE [address] BACTERIAL 4 [facility] ADDIE ADDIE QUANTTATI VE COLONY COUNT URINE NEBULIZER E0570 PATIENT PATIENT WITH 4 AIDS INC AIDS INC COMPRESSO R ADMN SET A7003 YOUR YOUR SM VOL 4 PHARMACY PHARMACY NONFILTR [facility] PNEUMAT NEBULIZR DISPBL ALBUTEROL J7613 YOUR YOUR INHAL 4 PHARMACY PHARMACY NON-CP [facility] PROD THRU DME U DOSE 1 MG PHRM Q0513 YOUR YOUR DISPENSIN 4 PHARMACY PHARMACY G FEE [facility] INHALATIO N RX; PER 30 DAYS HOSPITAL 35810 A[facility] DISCHARGE 4 [facility] MD PSC MANAGEMEN T > 30 MIN SBSQ 49814 [facility] 4 AVA COUNTS INCLUDE 234 [facility]EDS AT [facility] CARE/DAY 25 MINUTES SBSQ 56282 [facility] 4 [facility] CARE/DAY 15 MINUTES THERAPEUT 71833 [facility] ACTVITY 4 [facility] DIRECT PT REHABILIT REHABILIT CONTACT ATION ATION EACH 15 MIN THERAPEUT 79225 [facility] IC PX 1/> 4 [facility] AREAS REHABILIT REHABILIT EACH 15 ATION ATION MIN EXERCISES THERAPEUT 46122 [facility] IC PX 1/> 4 [facility] AREAS REHABILIT REHABILIT EACH 15 ATION ATION MIN EXERCISES THERAPEUT 38808 [facility] ACTVITY 4 [facility] DIRECT PT REHABILIT REHABILIT CONTACT ATION ATION EACH 15 MIN COLLECTIO 95270 [facility] N VENOUS 4 [facility] BLOOD REHABILIT REHABILIT VENIPUNCT ATION ATION URE BLOOD 09030 [facility] COUNT 4 [facility] COMPLETE REHABILIT REHABILIT AUTO&AUTO ATION ATION DIFRNTL WBC SBSQ 94126 [facility] 4 [facility] CARE/DAY 15 MINUTES BASIC 32572 [facility] METABOLIC 4 [facility] PANEL REHABILIT REHABILIT CALCIUM ATION ATION TOTAL SBSQ 04101 [facility] 4 AVA AVA CARE/DAY 25 MINUTES SBSQ 83063 [facility] 4 PHYSICAL GUILHERME CARE/DAY MEDICINE 15 AND MINUTES SBSQ 40354 [facility] 4 PHYSICAL GUILHERME CARE/DAY MEDICINE 25 AND MINUTES NEBULIZER E0570 PATIENT PATIENT WITH 4 AIDS INC AIDS INC COMPRESSO R THERAPEUT 15219 [facility] IC PX 1/> 4 [facility] AREAS REHABILIT REHABILIT EACH 15 ATION ATION MIN EXERCISES THERAPEUT 09294 [facility] ACTVITY 4 [facility] DIRECT PT REHABILIT REHABILIT CONTACT ATION ATION EACH 15 MIN SBSQ 66706 [facility] 4 [facility] CARE/DAY 25 MINUTES SBSQ 59796 [facility] 4 [facility] CARE/DAY 25 MINUTES SBSQ 39289 [facility] 4 [facility] CARE/DAY 15 MINUTES BASIC 01298 [facility] METABOLIC 4 [facility] PANEL REHABILIT REHABILIT CALCIUM ATION ATION TOTAL THERAPEUT 34682 [facility] ACTVITY 4 [facility] DIRECT PT REHABILIT REHABILIT CONTACT ATION ATION EACH 15 MIN BLOOD 44952 [facility] COUNT 4 [facility] COMPLETE REHABILIT REHABILIT AUTO&AUTO ATION ATION DIFRNTL WBC COLLECTIO 35706 [facility] N VENOUS 4 [facility] BLOOD REHABILIT REHABILIT VENIPUNCT ATION ATION URE THERAPEUT 13970 [facility] IC PX 1/> 4 [facility] AREAS REHABILIT REHABILIT EACH 15 ATION ATION MIN EXERCISES THERAPEUT 64712 [facility] IC PX 1/> 4 [facility] AREAS REHABILIT REHABILIT EACH 15 ATION ATION MIN EXERCISES THERAPEUT 81640 [facility] ACTVITY 4 [facility] DIRECT PT REHABILIT REHABILIT CONTACT ATION ATION EACH 15 MIN SBSQ 19975 [facility] 4 QUENTIN QUENTIN CARE/DAY 25 MINUTES SBSQ 67015 [facility] 4 AVA AVA CARE/DAY 25 MINUTES SBSQ 46842 [facility] 4 QUENTIN QEUNTIN CARE/DAY 15 MINUTES THERAPEUT 70229 [facility] ACTVITY 4 [facility] DIRECT PT REHABILIT REHABILIT CONTACT ATION ATION EACH 15 [place] [address] [facility] TROPONIN 4 Y Y QUANTITAT [facility] [place] [address] [facility] ABDOMEN & 4 Y Y PELVIS [facility] W/CONTRAS T MATERIAL THERAPEUT 48005 [facility] IC PX 1/> 4 [facility] AREAS REHABILIT REHABILIT EACH 15 ATION ATION MIN EXERCISES PORTABLE E0443 JANAE JANAE O2 4 HOME HOME CONTENTS MEDICAL MEDICAL GASEOUS 1 EQUIPME EQUIPME MO SUPPLY=[address] [place] [address] [facility] ANGIOGRAP 4 Y Y HY CHEST [facility] W/CONTRAS T/NONCONT RAST LOCM Q9967 [facility] [phone] 4 Y Y MG/ML HOSPITAL HOSPITAL IODINE CONCENTRA TION PER ML RADIOLOGI 31452 [facility] C 4 Y Y EXAMINATI [facility] ON CHEST [place]ING[place] FRONTAL COMPREHEN 25954 [facility] SIVE 4 Y Y METABOLIC [place] [address] [facility] LIPASE 4 [place] [address] [facility] MAGNESIUM 4 Y Y HOSPITAL HOSPITAL ECG 23117 [facility] ROUTINE 4 Y Y ECG HOSPITAL HOSPITAL W/LEAST 12 LDS TRCG ONLY W/O I&R NATRIURET 35011 [facility] IC 4 Y Y PEPTIDE [facility] ECG [address] JACQUELINE ROUTINE 4 MEDICAL ECG SERV W/LEAST FOUNDATIO 12 LDS N I&R ONLY INJ J2930 [facility] METHYLPRD 4 Y [facility] SODIUM SUCCNAT TO 125 MG THERAPEUT 51036 C[facility] IC PX 1/> 4 [facility] AREAS REHABILIT REHABILIT EACH 15 ATION ATION MIN EXERCISES RADEX 59498 [facility] [place] ABDOMEN 1 4 RADIOLOGY III VEE ANTEROPOS TERIOR VIEW RADEX 70925 [facility] ABDOMEN 4 [facility] COMPL REHABILIT REHABILIT W/DCBTS&/ ATION ATION ERC VIEWS PROTHROMB 02846 [facility] IN TIME 4 Y Y HOSPITAL HOSPITAL THYROID 96811 [facility] HORM 4 [facility] UPTK/THYR REHABILIT REHABILIT OID ATION AT[place] [address] [facility] TROPONIN 4 [facility] COLLECTIO 16122 [facility] N VENOUS 4 [facility] BLOOD REHABILIT REHABILIT VENIPUNCT ATION ATION URE BLOOD 40285 [facility] COUNT 4 Y Y COMPLETE [facility] AUTO&AUTO DIFRNTL WBC THERAPEUT 67622 [facility] IC 4 Y Y INJECTION [facility] [place] [address] [facility] INFUSION 4 Y Y THERAPY/P [facility] ROPHYLAXI S /DX 1ST TO 1 [place] [address] [facility] THYROID 4 [facility] STIMULATI REHABILIT REHABILIT NG ATION ATION HORMONE TSH THERAPEUT 70064 [facility] ACTVITY 4 [facility] DIRECT PT REHABILIT REHABILIT CONTACT ATION ATION EACH 15 MIN SBSQ 02323 [facility] 4 [facility] CARE/DAY 15 MINUTES BASIC 39777 [facility] METABOLIC 4 [facility] PANEL REHABILIT REHABILIT [place] [address] [facility] THYROXINE 4 [facility] TOTAL REHABILIT REHABILIT ATION ATION SBSQ 56906 [facility] 4 AVA COUNTS INCLUDE 234 BEDS AT [facility] CARE/DAY 25 MINUTES THROMBOPL 83474 [facility] ASTIN 4 Y Y TIME [facility] PARTIAL PLASMA/WH OLE BLOOD INJECTION J1200 [facility] [address] [facility] RAMINE HCL UP TO 50 MG SBSQ 92810 [facility] 4 [facility] CARE/DAY 15 MINUTES INITIAL 65942 [facility] 4 [facility] CARE/DAY 70 MINUTES THERAPEUT 30693 C[facility] IC PX 1/> 4 [facility] AREAS REHABILIT REHABILIT EACH 15 ATION ATION MIN EXERCISES THERAPEUT 98062 [facility] ACTVITY 4 [facility] DIRECT PT REHABILIT REHABILIT CONTACT ATION ATION EACH [address] [place] [address] [facility] 1/> AREAS 4 [facility] EA 15 REHABILIT REHABILIT MIN GAIT ATION ATION TRAINJ W/STAIR SBSQ 62798 [facility] 4 [facility] CARE/DAY 15 MINUTES SBSQ 20935 [facility] 4 [facility] CARE/DAY 25 MINUTES THERAPEUT 90686 [facility] ACTVITY 4 [facility] DIRECT PT REHABILIT REHABILIT CONTACT ATION ATION EACH 15 MIN COLLECTIO 62180 [facility] N VENOUS 4 [facility] BLOOD REHABILIT REHABILIT VENIPUNCT ATION ATION URE BLOOD 05001 [facility] COUNT 4 [facility] COMPLETE REHABILIT REHABILIT AUTO&AUTO ATION ATION DIFRNTL WBC THERAPEUT 91794 [facility] IC PX 1/> 4 [facility] AREAS REHABILIT REHABILIT EACH 15 ATION ATION MIN EXERCISES THERAPEUT 26925 [facility] IC PX 1/> 4 [facility] AREAS REHABILIT REHABILIT EACH 15 ATION ATION MIN EXERCISES PHYSICAL 02986 [facility] THERAPY 4 [facility] EVALUATIO REHABILIT REHABILIT N ATION ATION BLOOD 16766 [facility] COUNT 4 [facility] COMPLETE REHABILIT REHABILIT AUTO&AUTO ATION ATION DIFRNTL WBC COLLECTIO 70576 [facility] N VENOUS 4 [facility] BLOOD REHABILIT REHABILIT [place] [address] [facility] THYROID 4 [facility] STIMULATI REHABILIT REHABILIT NG ATION ATION HORMONE TSH URNLS DIP 39624 [facility] 4 [place] [facility] STICK/TAB REHABILIT REHABILIT LET ATION ATION REAGENT AUTO MICROSCOP Y COMPREHEN 78865 [facility] SIVE 4 [facility] METABOLIC REHABILIT REHABILIT PANEL ATION ATION SBSQ 86852 [facility] 4 QUENTIN QUENTIN CARE/DAY 25 MINUTES CULTURE 11857 [facility] BACTERIAL 4 [facility] REHABILIT REHABILIT QUANTTATI ATION ATION VE COLONY COUNT URINE HOSPITAL 80293 [facility] DISCHARGE 4 MEDICAL DAY SERV MANAGEMEN FOUNDATIO T > 30 N MIN INJECTION J1644 [facility] HEPARIN 4 Y Y [facility] PER 1000 UNITS BASIC 41969 [facility] METABOLIC 4 Y Y [facility] CALCIUM TOTAL SUSCEPTIB 60990 [facility] L[facility] STDY 4 [facility] ANTIMICRB REHABILIT REHABILIT IAL ATION ATION MICRO/AGA R DILUTJ THERAPEUT 58434 [facility] ACTVITY 4 Y Y DIRECT PT HOSPITAL HOSPITAL CONTACT EACH 15 MIN BLOOD 77704 [facility] 4 Y Y [facility] AUTOMATED INITIAL 53223 [facility] 4 [facility]/DAY PSC 70 MINUTES INJECTION J0696 [facility] 4 Y Y [facility] NE SODIUM PER 250 MG INJECTION J0696 [facility] 4 Y Y [facility] NE SODIUM PER 250 MG BLOOD 26205 [facility] 4 Y Y [facility] AUTO&[place] [address] [facility] MAGNESIUM 4 Y Y [facility] BASIC 39379 [facility] METABOLIC 4 Y Y [facility] CALCIUM TOTAL INJECTION J1644 [facility] 4 Y Y [facility] PER 1000 UNITS SBSQ 27787 [facility] 4 MEDICAL CARE/DAY SERV 25 FOUNDATIO MINUTES N SBSQ 92260 [facility] 4 MEDICAL ALA CARE/DAY SERV 25 FOUNDATIO MINUTES CULTURE 22731 [facility] BACTERIAL 4 Y Y [facility] QUANTTATI VE COLONY COUNT URINE CUL BACT 57403 [facility] AEROBIC 4 Y Y [facility] METHS DEFINITIV E EA ISOL INJECTION J1644 [facility] HEPARIN 4 Y Y [facility] PER 1000 UNITS BASIC 59578 [facility] METABOLIC 4 Y Y [facility]PITAL CALCIUM TOTAL INFUSION J7050 [facility] NORMAL 4 Y Y [facility] SOLUTION [address] [place] [address] [facility] MAGNESIUM 4 Y Y HOSPITAL HOSPITAL URNLS DIP 97089 [facility] 4 Y Y STICK/TAB HOSPITAL HOSPITAL LET REAGENT AUTO MICROSCOP Y BLOOD 42347 [facility] UNIVERS COUNT 4 Y Y COMPLETE [facility] AUTO&AUTO DIFRNTL WBC THERAPEUT 97656 [facility] ACTVITY 4 Y Y DIRECT PT HOSPITAL HOSPITAL CONTACT EACH 15 MIN SUSCEPTIB 99629 [facility] LTY STDY 4 Y Y ANTIMICRB [facility] IAL MICRO/AGA R DILUTJ INJECTION [id number] [facility] 4 Y Y CEFTRIAXO [facility] NE SODIUM PER 250 MG INJECTION J2405 [facility] MG BLOOD 26426 [facility] COUNT 4 Y Y COMPLETE [facility] AUTO&[place] [address] [facility] TROPONIN 4 Y Y QUANTITAT [facility] JOSE ALFREDO ECG [address]39 [place] [facility] CHI ROUTINE 4 MEDICAL ECG SERV W/LEAST FOUNDATIO 12 LDS N I&[place] [address] [facility] MAGNESIUM 4 Y Y HOSPITAL HOSPITAL ECG 06357 [facility] ROUTINE 4 Y Y ECG [facility] W/LEAST 12 LDS TRCG ONLY W/O I&R RADIOLOGI 13595 [place] ABIGAIL REGLA C 4 MEDICAL EXAMINATI SERV ON CHEST FOUNDATIO [place] FRONTAL INJECTION J1885 [facility] 4 Y Y KETOROLAC [facility] TROMETHAM INE PER 15 MG BASIC 90333 [facility] METABOLIC 4 Y Y PANEL HOSPITAL [facility] CALCIUM TOTAL INJECTION J1644 [facility] HEPARIN 4 Y Y SODIUM [facility] PER 1000 UNITS SBSQ 71396 [facility] 4 MEDICAL ALA CARE/DAY SERV 25 FOUNDATIO MINUTES SBSQ 86082 [facility] 4 MEDICAL ALA CARE/DAY SERV 25 FOUNDATIO MINUTES THROMBOPL 80187 [facility] ASTIN 4 Y Y TIME HOSPITAL HOSPITAL PARTIAL PLASMA/WH OLE BLOOD INJECTION J1644 [facility] HEPARIN 4 Y Y [facility] PER 1000 UNITS GASES 01755 [facility] BLOOD PH 4 Y Y DIRECT HOSPITAL HOSPITAL WILLEM XCPT PULSE OXIMITRY ECG 53011 [facility] ROUTINE 4 Y Y ECG HOSPITAL HOSPITAL W/LEAST 12 LDS TRCG ONLY W/O I&[place] [address] [facility] MAGNESIUM 4 Y Y HOSPITAL HOSPITAL COMPREHEN 15811 [facility] SIVE 4 Y Y [facility] HOSPITAL PANEL ECG 74924 [facility] ROUTINE 4 MEDICAL NAN ECG SERV W/LEAST FOUNDATIO 12 LDS N I&R ONLY BLOOD 44032 [facility] COUNT 4 Y Y COMPLETE HOSPITAL [facility] AUTO&AUTO DIFRNTL WBC INJECTION J2405 [facility] 4 Y Y [facility] ON HCL PER 1 MG PROTHROMB 16032 [facility] IN TIME 4 Y Y HOSPITAL [facility]OSPITAL SBSQ 02562 [facility] 4 MEDICAL ALA CARE/DAY SERV 35 FOUNDATIO MINUTES INJECTION J1644 [facility] HEPARIN 4 Y Y [facility] PER 1000 UNITS INJECTION J1644 [facility] HEPARIN 4 Y Y SODIUM [facility] PER 1000 UNITS BASIC 87880 [facility] METABOLIC 4 Y Y [facility] CALCIUM TOTAL BLOOD 81952 [facility] UNIVERSIT COUNT 4 Y [facility] AUTOMATED BLOOD 18280 [facility] UN[facility]ERS[facility] COUNT 4 Y [facility] AUTOMATED INJECTION J2270 [facility] MORPHINE 4 Y [facility] UP TO 10 MG BASIC 01062 [facility] METABOLIC 4 Y Y [facility]PITAL CALCIUM TOTAL INJECTION J1644 [facility] UNIVERS HEPARIN 4 Y Y [facility] PER 1000 UNITS INJECTION J1644 [facility] HEPARIN 4 Y [facility] PER 1000 UNITS BASIC 84558 [facility] METABOLIC 4 Y Y [facility] CALCIUM TOTAL INJECTION J2270 [facility] MORPHINE 4 Y [facility] UP TO 10 MG BLOOD 41101 [facility] COUNT 4 Y [facility] [place] [address] [facility] TROPONIN 4 Y Y QUANTITAT [facility] JOSE ALFREDO INJECTION J2405 [facility] 4 Y Y [facility] ON [facility]CL [place] 1 [place] [address] [facility] THYROID 4 Y Y STIMULATI [facility] NG HORMONE TSH ECG [id number] MARLON SUTTON MADYSON ROUTINE 4 MEDICAL ECG SERV W/LEAST FOUNDATIO 12 LDS [place] I&[place] [address] [facility] MAGNESIUM 4 Y Y HOSPITAL HOSPITAL ECG 45978 [facility] ROUTINE 4 Y Y ECG [facility] W/LEAST 12 LDS TRCG ONLY W/O I&R BLOOD 98046 [facility] COUNT 4 Y Y COMPLETE [facility] AUTOMATED BASIC 61925 [facility] METABOLIC 4 Y Y PANEL [facility] CALCIUM TOTAL BASIC 09408 [facility] METABOLIC 4 Y Y PANEL [facility] CALCIUM TOTAL BLOOD 34099 [facility] COUNT 4 Y Y COMPLETE [facility] AUTOMATED INJECTION J2270 [facility] MORPHINE 4 Y Y SULFATE [facility] UP TO 10 MG DUP-SCAN 58886 [facility] XTR VEINS 4 Y Y HOSPITAL [facility] UNILATERA L/LIMITED STUDY INJECTION J2405 [facility] 4 Y Y [facility] H[facility] PER 1 MG URNLS DIP [address]2451 [place] [address] Y Y STICK/TAB [facility] LET RGNT AUTO W/O MICROSCOP Y INJECTION J2405 [facility] 4 Y Y [facility]CL PER 1 MG BASIC 01700 [facility] METABOLIC 4 Y Y PANEL [facility] CALCIUM TOTAL BASIC 46732 [facility] METABOLIC 4 Y Y PANEL HOSPITAL [facility] CALCIUM TOTAL INFUSION J7040 [facility] NORMAL 4 Y Y [facility] SOLUTION STERILE CUL BACT 11264 [facility] XCPT 4 Y Y URINE [facility]PITAL BLOOD/STO OL AEROBIC ISOL CUL BACT 32529 [facility] AEROBIC 4 Y Y ADDL [facility] METHS DEFINITIV E EA ISOL INJECTION J2405 [facility] 4 Y Y [facility] HCL PER 1 MG THERAPEUT 27075 [facility] IC PX 1/> 4 Y Y [facility] EACH 15 MIN EXERCISES IADNA S 87558 [facility] AUREUS 4 Y Y [facility] IN RESIST AMP PROBE TQ BLOOD 91791 [facility] COUNT 4 Y Y COMPLETE [facility] AUTOMATED SUSCEPTIB 76291 [facility] LTY STDY 4 Y Y [facility] IAL MICRO/AGA R DILUTJ THERAPEUT 34905 [facility] UNIVERSIT ACTVITY 4 Y Y DIRECT PT HOSPITAL HOSPITAL CONTACT EACH 15 MIN ECG 30830 [facility] ROUTINE 4 Y Y ECG HOSPITAL HOSPITAL W/LEAST 12 LDS TRCG ONLY W/[place] [address] [facility] HEAD/BRAI 4 Y Y N W/O HOSPITAL HOSPITAL CONTRAST MATERIAL ECG 41455 MARLON IBETH CHI ROUTINE 4 MEDICAL ECG SERV W/LEAST FOUNDATIO 12 LDS N I&R ONLY ECG 58635 [place] ROUTINE 4 MEDICAL NAN ECG SERV W/LEAST FOUNDATIO 12 LDS N I&R ONLY ECG 61649 [facility] ROUTINE 4 Y Y ECG HOSPITAL HOSPITAL W/LEAST 12 LDS TRCG ONLY W/O I&R THERAPEUT 40962 [facility] ACTVITY 4 Y Y DIRECT PT HOSPITAL HOSPITAL CONTACT EACH 15 MIN SELF-CARE 49506 [facility] UNIVERS /HOME 4 Y Y MGMT HOSPITAL HOSPITAL TRAINING EACH 15 MINUTES BLOOD 79156 [facility] COUNT 4 Y Y COMPLETE [facility] AUTOMATED PREALBUMI 39834 [facility] N 4 Y Y HOSPITAL HOSPITAL PHYSICAL 64645 [facility] THERAPY 4 Y Y EVALUATIO [facility] N INJECTION J2405 [facility] 4 Y Y [facility] H[facility] 1 MG INJ J2930 [facility] METHYLPRD 4 Y Y NISOLONE [facility] SODIUM SUCCNAT TO 125 MG BASIC 10872 [facility] METABOLIC 4 Y Y PANEL [facility] CALCIUM TOTAL INJECTION J1885 [facility] 4 Y Y KETOROLAC [facility] TROMETHAM INE PER 15 MG INFUSION J7050 [facility] NORMAL 4 Y Y SALINE [facility] SOLUTION 250 CC INJECTION J1644 [facility] HEPARIN 4 Y Y SODIUM [facility] PER 1000 UNITS CUL BACT 98704 [facility] AEROBIC 4 Y Y ADDL [facility] METHS DEFINITIV E EA ISOL CULTURE 93187 [facility] BACTERIAL 4 Y Y [facility] QUANTTATI VE COLONY COUNT URINE FIBRIN 89136 [facility] DGRADJ 4 Y Y PRODUCTS [facility] D-DIM[place] [address] [facility] PHOSPHORU 4 Y Y S [facility] [place] [address] [facility] TROPONIN 4 Y Y QUANTITAT [facility] JOSE ALFREDO SUSCEPTIB 44791 [facility] LTY STDY 4 Y Y ANTIMICRB [facility] IAL MICRO/[place] [address] [facility] MAGNESIUM 4 Y Y HOSPITAL HOSPITAL COMPREHEN 61631 [facility] SIVE 4 Y Y METABOLIC HOSPITAL HOSPITAL PANEL HOSPITAL G0378 [facility] OBSERVATI 4 Y Y ON HOSPITAL HOSPITAL SERVICE PER HOUR RADIOLOGI 58407 MRALON MONTOYA C 4 MEDICAL BAR EXAMINATI SERV ON CHEST FOUNDATIO SINGLE VIEW FRONTAL URNLS DIP 04580 [facility] 4 Y Y STICK/TAB [facility] HOSPITAL LET REAGENT AUTO MICROSCOP Y HEPATIC 56843 NEW NEW FUNCTION 4 [facility] PANEL MED CTR MED CTR ECG 60237 MARLON CRISTINA CHI ROUTINE 4 MEDICAL ECG SERV W/LEAST FOUNDATIO 12 LDS N I&R ONLY IMMUNOASS 41606 NEW NEW AY 4 [facility] ANALYTE MED CTR MED CTR QUANTITAT JOSE ALFREDO NOS CREATINE 31105 NEW NEW KIN[place] MB 4 [facility] H[facility] FRACTION MED CTR MED CTR ONLY CREATINE 81467 NEW NEW KINASE 4 [facility] TOTAL MED CTR MED CTR ECG 68370 [facility] ROUTINE 4 Y Y ECG HOSPITAL HOSPITAL W/LEAST 12 LDS TRCG ONLY W/O I&R BLOOD 84193 NEW NEW COUNT 4 [facility] COMPLETE MED CTR MED CTR AUTO&[place] [address] NEW NEW TROPONIN 4 [facility] QUANTITAT MED CTR MED CTR JOSE ALFREDO COLLECTIO 39091 NEW NEW N VENOUS 4 [facility] BLOOD MED CTR MED CTR VENIPUNCT URE GROUND A[address] PER [facility] STATUTE [facility] MILE BASIC 61472 NEW NEW METABOLIC 4 [facility] PANEL MED CTR MED CTR CALCIUM TOTAL BLOOD 91699 NEW NEW COUNT 4 [facility]IZ[facility] SMEAR MED CTR MED CTR MCRSCP W/MNL DIFRNTL WBC COUNT AMB A[address] ALS [facility] EMERGENCY [facility] TRANSPORT LEVEL 1 [address] LOWER 23503 NEW NEW EXTREMITY 4 [facility] W/O MED CTR MED CTR CONTRAST MATERIAL COLLECTIO 06717 NEW NEW N VENOUS 4 [facility] BLOOD MED CTR MED CTR VENIPUNCT URE BLOOD 86335 NEW NEW COUNT 4 [facility] COMPLETE MED CTR MED CTR AUTO&AUTO DIFRNTL WBC COMPREHEN 28364 NEW NEW SIVE 4 [facility] METABOLIC MED CTR MED CTR PANEL RADEX 77089 NEW NEW SPINE 4 [facility] THORACOLU MED CTR MED CTR MBAR JUNCTION MIN 2 VIEWS RADEX 64849 F&S AILYN SPINE 4 RADIOLOGY WHITNEY LUMBOSACR PC AL MINIMUM 4 VIEWS RADEX 06222 NEW NEW ANKLE 4 [facility] COMPLETE MED CTR MED CTR MINIMUM 3 VIEWS IM ADM 15436 NEW NEW PRQ ID 4 [facility] SUBQ/IM MED CTR MED CTR NJXS 1 VACCINE GROUND A0425 TRACY TRACY MILEAGE 4 [facility] PER LIFE LIFE STATUTE [facility] MILE THER 76034 NEW NEW PROPH/DX 4 [facility] HORIZONS NJX IV MED CTR MED CTR PUSH SINGLE/1S T SBST/DRUG AMB A0427 TRACY TRACY SERVICE 4 [facility] ALS [facility]ERGENC[facility] TRANSPORT LEVEL 1 AMB A0427 TRACY TRACY SERVICE 4 [facility] ALS [facility] EMERGENCY SQU[facility] S[facility]AD TRANSPORT LEVEL 1 RADEX 78363 NEW NEW RIBS UNI 4 [facility] W/POSTERO MED CTR MED CTR ANT CH MINIMUM 3 VIEWS THER 03423 NEW NEW PROPH/DX 4 [facility] HORIZONS NJX IV MED CTR MED CTR PUSH SINGLE/1S T SBST/DRUG GROUND A0425 [facility] MILEA 4 [facility] PER LIFE LIFE STATUTE SQUAD SQUAD MILE IM ADM 22744 NEW NEW PRQ ID 4 [facility] SUBQ/IM MED CTR MED CTR NJ[place] [address] [place] [address] F&S OLIVO HEAD/BRAI 4 RADIOLOGY BRA N W/O PC CONTRAST MATERIAL DAY CARE S5100 [facility] 4 N ACTIVE N ACTIVE ADULT; DAY CENT DAY CENT PER 15 MINUTES NONEMERG A0120 [facility] SENIOR TRNSPRT: 4 INC SERVICES [place] 9 [facility] SYS NEBULIZER E0570 PATIENT PATIENT WITH 4 AIDS INC AIDS INC COMPRESSO R PHYSICAL 76379 [facility] 4 N ACTIVE N ACTIVE EVALUATIO DAY CENT DAY CENT N NONEMERG A0120 [facility]: 4 INC SERVICES [place] 9 [facility]/OTH SYS DAY CARE S5100 [facility] 4 N ACTIVE N ACTIVE ADULT; DAY CENT DAY CENT PER 15 MINUTES DAY CARE S5100 [facility] 4 N ACTIVE N ACTIVE ADULT; DAY CENT DAY CENT PER 15 MINUTES NONEMERG A0120 [facility] SENIOR TRNSPRT: 4 INC SERVICES [place] 9 [facility] SYS PHYSICAL 91655 [facility] 4 N ACTIVE N ACTIVE EVALUATIO DAY CENT DAY CENT N PORTABLE E0443 JANAE JANAE O2 4 HOME HOME CONTENTS MEDICAL MEDICAL GASEOUS 1 EQUIPME EQUIPME MO SUPPLY=1 UNIT NONEMERG A0120 [facility] SENIOR TRNSPRT: 4 INC SERVICES [place] REGION 9 [facility] SYS PHYSICAL 01317 [facility] 4 N ACTIVE N ACTIVE EVALUATIO DAY CENT DAY CENT N DAY CARE S5100 [facility] 4 N ACTIVE N ACTIVE ADULT; DAY CENT DAY CENT PER [address] PANEL 4 GERALDO GER[facility] MED [facility] MED CTR COLLECTIONS DIRECTOR ST COLLECTIONS DIRECTOR ST COMPREHEN [address] SIVE 4 GERALDO GERALDO METABOLIC MED CTR MED CTR PANEL COLLECTIONS DIRECT[place] [address] FREE 4 GERALDO GERALDO THYROXINE MED CTR MED CTR COLLECTIONS [place] [address] THYROID 4 GERALDO GERALDO STIMULATI MED CTR MED CTR NG COLLECTIONS DIRECTOR ST COLLECTIONS DIRECTOR ST HORMONE TSH SUSCEPTIB [address] LTY STDY 4 GERALDO GERALDO ANTIMICRB MED CTR MED CTR IAL COLLECTIONS DIRECTOR ST COLLECTIONS DIRECTOR ST MICRO/AGA R DILUTJ CUL BACT [address] AEROBIC 4 GERALDO GERALDO ADDL MED CTR MED CTR METHS COLLECTIONS DIRECTOR ST COLLECTIONS DIRECTOR ST DEFINITIV E EA ISOL CULTURE [address] ST [address] BACTERIAL 4 GERALDO GERALDO MED CTR MED CTR QUANTTATI COLLECTIONS DIRECTOR ST COLLECTIONS DIRECTOR ST VE COLONY COUNT URINE PHYSICAL 49710 [facility] 4 N ACTIVE N ACTIVE EVALUATIO DAY CENT DAY CENT N NONEMERG A0120 [facility] SENIOR TRNSPRT: 4 INC SERVICES [place] [facility] 9 [facility]OTH SYS DAY CARE S5100 [facility] 4 N ACTIVE N ACTIVE ADULT; DAY CENT DAY CENT PER 15 MINUTES DAY CARE S5100 [facility] 4 N ACTIVE N ACTIVE ADULT; DAY CENT DAY CENT PER 15 MINUTES NONEMERG A0120 [facility] SENIOR TRNSPRT: 4 INC SERVICES [place] [facility] 9 [facility]OTH SYS PHYSICAL 20180 [facility] THERAPY 4 N ACTIVE N ACTIVE EVALUATIO DAY CENT DAY CENT N NONEMERG A0120 [facility] SENIOR TRNSPRT: 4 INC SERVICES [place] [facility] 9 [facility]OTH SYS DAY CARE S5100 [facility] 4 N ACTIVE N ACTIVE ADULT; DAY CENT DAY CENT PER 15 MINUTES DAY CARE S5100 [facility] 4 N ACTIVE N ACTIVE ADULT; DAY CENT DAY CENT PER 15 MINUTES NONEMERG A0120 [facility] SENIOR TRNSPRT: 4 INC SERVICES [place] [facility] 9 [facility]OTH SYS NONEMERG A0120 [facility] SENIOR TRNSPRT: 4 INC SERVICES [facility] 9 [facility]OTH SYS NONEMERG A0120 [facility] SENIOR TRNSPRT: 4 INC SERVICES [place] [facility] 9 [facility]OTH SYS DAY CARE S5100 [facility] SERVICES 4 N ACTIVE N ACTIVE ADULT; DAY CENT DAY CENT PER 15 MINUTES DAY CARE S5100 [facility] SERVICES 4 N ACTIVE N ACTIVE ADULT; DAY CENT DAY CENT PER 15 MINUTES NONEMERG A0120 [facility] SENIOR TRNSPRT: 4 INC SERVICES [place] [facility] 9 [facility]OTH SYS NONEMERG A0120 [facility] SENIOR TRNSPRT: 4 INC SERVICES [place] [facility] 9 [facility] SYS PHYSICAL 65991 [facility] 4 N ACTIVE N ACTIVE EVALUATIO DAY CENT DAY CENT N DAY CARE S5100 [facility] 4 N ACTIVE N ACTIVE ADULT; DAY CENT DAY CENT PER 15 MINUTES NEBULIZER E0570 PATIENT PATIENT WITH 4 AIDS INC AIDS INC COMPRESSO R PHYSICAL 52465 [facility] 4 N ACTIVE N ACTIVE EVALUATIO DAY CENT DAY CENT N NONEMERG A0120 [facility] SENIOR TRNSPRT: 4 INC SERVICES [facility] REGION 9 [facility] DAY CARE S5100 [facility] 4 N ACTIVE N ACTIVE ADULT; DAY CENT DAY CENT PER 15 MINUTES DAY CARE S5100 [facility] 4 N ACTIVE N ACTIVE ADULT; DAY CENT DAY CENT PER 15 MINUTES NONEMERG A0120 [facility] SENIOR TRNSPRT: 4 INC SERVICES [facility] REGION 9 [facility] SYS NONEMERG A0120 [facility] SENIOR TRNSPRT: 4 INC SERVICES [facility] REGION 9 [facility] SYS PORTABLE E0443 JANAE JANAE O2 4 HOME HOME CONTENTS MEDICAL MEDICAL GASEOUS 1 EQUIPME EQUIPME MO SUPPLY=1 UNIT DAY CARE S5100 [facility] 4 N ACTIVE N ACTIVE ADULT; DAY CENT DAY CENT PER 15 MINUTES DAY CARE S5100 [facility] 4 N ACTIVE N ACTIVE ADULT; DAY CENT DAY CENT PER 15 MINUTES NONEMERG A0120 [facility] SENIOR TRNSPRT: [address] [facility] 9 [facility] SYS PHYSICAL 79077 [facility] 4 N ACTIVE N ACTIVE EVALUATIO DAY CENT DAY CENT N PHYSICAL 16436 [facility] 4 N ACTIVE N ACTIVE EVALUATIO DAY CENT DAY CENT N NONEMERG A0120 [facility] SENIOR TRNSPRT: 4 INC SERVICES [facility] 9 [facility] S[facility] DAY CARE S5100 [facility] 4 N ACTIVE N ACTIVE ADULT; DAY CENT DAY CENT PER 15 MINUTES DAY CARE S5100 [facility] 4 N ACTIVE N ACTIVE ADULT; DAY CENT DAY CENT PER 15 MINUTES NONEMERG A0120 [facility] SENIOR TRNSPRT: 4 INC SERVICES [place] [facility] 9 [facility]OTH SYS NONEMERG A0120 [facility] SENIOR TRNSPRT: [address] [facility] 9 [facility] S[facility] DAY CARE S5100 [facility] 4 N ACTIVE N ACTIVE ADULT; DAY CENT DAY CENT PER 15 MINUTES NEBULIZER E0570 PATIENT PATIENT WITH 4 AIDS INC AIDS INC COMPRESSO R NONEMERG A0120 [facility] SENIOR TRNSPRT: 4 INC SERVICES [facility]ION 9 [facility] SYS DAY CARE S5100 [facility] 4 N ACTIVE N ACTIVE ADULT; DAY CENT DAY CENT PER 15 MINUTES DAY CARE S5100 [facility] 4 N ACTIVE N ACTIVE ADULT; DAY CENT DAY CENT PER 15 MINUTES NONEMERG A0120 [facility] SENIOR TRNSPRT: 4 INC SERVICES [facility] REGION 9 [facility]OT SYS PORTABLE E0443 JANAE JANAE O2 4 HOME HOME CONTENTS MEDICAL MEDICAL GASEOUS 1 EQUIPME EQUIPME MO SUPPLY=1 UNIT NONEMERG A0120 [facility] SENIOR TRNSPRT: [address] [facility] 9 [facility] S[facility] DAY CARE S5100 [facility] 4 N ACTIVE N ACTIVE ADULT; DAY CENT DAY CENT PER 15 MINUTES DAY CARE S5100 [facility] 4 N ACTIVE N ACTIVE ADULT; DAY CENT DAY CENT PER 15 MINUTES NONEMERG A0120 [facility] SENIOR TRNSPRT: 4 INC SERVICES [facility] 9 [facility]OTH SYS NONEMERG A0120 [facility] SENIOR TRNSPRT: 4 INC SERVICES [facility] REG[facility] 9 [facility]OTH SYS PHYSICAL 13052 [facility] 4 N ACTIVE N ACTIVE EVALUATIO DAY CENT DAY CENT N DAY CARE S5100 [facility] 4 N ACTIVE N ACTIVE ADULT; DAY CENT DAY CENT PER 15 MINUTES DAY CARE S5100 [facility] 4 N ACTIVE N ACTIVE ADULT; DAY CENT DAY CENT PER 15 MINUTES NONEMERG A0120 [facility] SENIOR TRNSPRT: 4 INC SERVICES [facility] REGION 9 [facility]OTH SYS NONEMERG A0120 [facility] SENIOR TRNSPRT: 4 INC SERVICES [facility] REGION 9 [facility]OTH SYS DAY CARE S5100 [facility] 4 N ACTIVE N ACTIVE ADULT; DAY CENT DAY CENT PER 15 MINUTES DAY CARE S5100 [facility] 4 N ACTIVE N ACTIVE ADULT; DAY CENT DAY CENT PER 15 MINUTES NONEMERG A0120 [facility] SENIOR TRNSPRT: 4 INC SERVICES [facility] REGION 9 [facility]OT SYS PHYSICAL 87826 [facility] 4 N ACTIVE N ACTIVE EVALUATIO DAY CENT DAY CENT N NONEMERG A0120 [facility] SENIOR TRNSPRT: [address] [facility] 9 [facility]OTH SYS DAY CARE S5100 [facility] 4 N ACTIVE N ACTIVE ADULT; DAY CENT DAY CENT PER 15 MINUTES DAY CARE S5100 [facility] 4 N ACTIVE N ACTIVE ADULT; DAY CENT DAY CENT PER 15 MINUTES NONEMERG A0120 [facility] SENIOR TRNSPRT: 4 INC SERVICES [facility] 9 [facility]OTH SYS NONEMERG A0120 [facility] SENIOR TRNSPRT: 4 INC SERVICES [facility] 9 [facility] S[facility] DAY CARE S5100 [facility] 4 N ACTIVE N ACTIVE ADULT; DAY CENT DAY CENT PER 15 MINUTES DAY CARE S5100 [facility] 4 N ACTIVE N ACTIVE ADULT; DAY CENT DAY CENT PER 15 MINUTES NONEMERG A0120 [facility] CAC SENIOR TRNSPRT: 4 INC SERVICES [place] [facility] 9 [facility]OT SYS NONEMERG A0120 [facility] CAC SENIOR TRNSPRT: 4 INC SERVICES [place] [facility] 9 [facility] DAY CARE S5100 [facility] 4 N ACTIVE N ACTIVE ADULT; DAY CENT DAY CENT PER 15 MINUTES DAY CARE S5100 [facility] 4 N ACTIVE N ACTIVE ADULT; DAY CENT DAY CENT PER 15 MINUTES NONEMERG A0120 [facility] SENIOR TRNSPRT: 4 INC SERVICES [facility] 9 [facility] PHYSICAL 498[address] [facility] THERAPY 4 N ACTIVE N ACTIVE EVALUATIO DAY CENT DAY CENT N NEBULIZER E0570 PATIENT PATIENT WITH 4 AIDS INC AIDS INC COMPRESSO R NONEMERG A0120 [facility] CAC SENIOR TRNSPRT: 4 INC SERVICES [facility] 9 [facility] DAY [facility]ARE S5100 [facility] 4 N ACTIVE N ACTIVE ADULT; DAY CENT DAY CENT PER 15 MINUTES DAY CARE S5100 [facility] 4 N ACTIVE N ACTIVE ADULT; DAY CENT DAY CENT PER 15 MINUTES NONEMERG A0120 [facility] CAC SENIOR TRNSPRT: 4 INC SERVICES [facility] 9 [facility]OT SYS PORTABLE E0443 JANAE JANAE O2 4 HOME HOME CONTENTS MEDICAL MEDICAL GASEOUS 1 EQUIPME EQUIPME MO SUPPLY=1 UNIT NONEMERG A0120 [facility] CAC SENIOR TRNSPRT: 4 INC [facility]OTH SYS DAY CARE S5100 [facility] 4 N ACTIVE N ACTIVE ADULT; DAY CENT DAY CENT PER 15 MINUTES NONEMERG A0120 [facility] CAC SENIOR TRNSPRT: 4 INC [facility]OTH SYS NONEMERG A0120 [facility] CAC SENIOR TRNSPRT: 4 INC SERVICES [facility]OTH SYS DAY CARE S5100 [facility] 4 N ACTIVE N ACTIVE ADULT; DAY CENT DAY CENT PER 15 MINUTES DAY CARE S5100 [facility] 4 N ACTIVE N ACTIVE ADULT; DAY CENT DAY CENT PER 15 MINUTES NONEMERG A0120 [facility] CAC SENIOR TRNSPRT: 4 INC [facility]OTH SYS PHYSICAL [id number] [facility] 4 N ACTIVE N ACTIVE EVALUATIO DAY CENT DAY CENT N NONEMERG A0120 [facility] CAC SENIOR TRNSPRT: 4 INC SERVICES [facility]OTH SYS DAY CARE S5100 [facility] 4 N ACTIVE N ACTIVE ADULT; DAY CENT DAY CENT PER 15 MINUTES DAY CARE S5100 [facility] 4 N ACTIVE N ACTIVE ADULT; DAY CENT DAY CENT PER 15 MINUTES NONEMERG A0120 [facility] CAC SENIOR TRNSPRT: 4 INC [facility]OTH SYS PHYSICAL [id number] [facility] 4 N ACTIVE N ACTIVE EVALUATIO DAY CENT DAY CENT N NONEMERG A0120 [facility] CAC SENIOR TRNSPRT: 4 INC [facility]OTH SYS DAY CARE S5100 [facility] 4 N ACTIVE N ACTIVE ADULT; DAY CENT DAY CENT PER 15 MINUTES DAY CARE S5100 [facility] 4 N ACTIVE N ACTIVE ADULT; DAY CENT DAY CENT PER 15 MINUTES NONEMERG A0120 [facility] CAC SENIOR TRNSPRT: 4 INC SERVICES [facility] [place]OTH SYS NONEMERG A0120 [facility] CAC SENIOR TRNSPRT: 4 INC SERVICES [facility] [place]OTH SYS PHYSICAL [id number] [facility] 4 N ACTIVE N ACTIVE EVALUATIO DAY CENT DAY CENT N DAY CARE S5100 [facility] 4 N ACTIVE N ACTIVE ADULT; DAY CENT DAY CENT PER 15 MINUTES DAY CARE S5100 [facility] 4 N ACTIVE N ACTIVE ADULT; DAY CENT DAY CENT PER 15 MINUTES NONEMERG A0120 [facility] CAC SENIOR TRNSPRT: 4 INC SERVICES [facility]OT SYS NONEMERG A0120 [facility] CAC SENIOR TRNSPRT: 4 INC SERVICES [facility] SYS PHYSICAL [id number] [facility] 4 N ACTIVE N ACTIVE EVALUATIO DAY CENT DAY CENT N DAY CARE S5100 [facility] 4 N ACTIVE N ACTIVE ADULT; DAY CENT DAY CENT PER 15 MINUTES DAY CARE S5100 [facility] [facility] 4 N ACTIVE N ACTIVE ADULT; DAY CENT DAY CENT PER 15 MINUTES NONEMERG A0120 LKLP CAC SENIOR TRNSPRT: [address] REGION 9 OF [facility]OTH SYS NONEMERG A0120 LKLP CAC SENIOR TRNSPRT: 4 INC SERVICES MIN[facility] REGION 9 OF [facility]OTH SYS DAY CARE S5100 [facility] 4 N ACTIVE N ACTIVE ADULT; DAY CENT DAY CENT PER 15 MINUTES DAY CARE S5100 [facility] 4 N ACTIVE N ACTIVE ADULT; DAY CENT DAY CENT PER 15 MINUTES NONEMERG A0120 LKLP CAC LKLP CAC TRNSPRT: 4 INC INC [facility] REGION 9 REGION 9 [facility] AREA/OTH SYS PHYSICAL 00465 [facility] THERAPY 4 N ACTIVE N ACTIVE EVALUATIO DAY CENT DAY CENT N NONEMERG A0120 LKLP CAC LKLP CAC TRNSPRT: 4 INC INC [facility] REGION 9 REGION 9 [facility] AREA/OTH SYS DAY CARE S5100 [facility] SERVICES 4 N ACTIVE N ACTIVE ADULT; DAY CENT DAY CENT PER 15 MINUTES NEBULIZER E0570 PATIENT PATIENT WITH 4 AIDS INC AIDS INC COMPRESSO R PORTABLE E0443 JANAE JANAE O2 4 HOME HOME CONTENTS MEDICAL MEDICAL GASEOUS 1 EQUIPME EQUIPME MO SUPPLY=1 UNIT INJECTION J2405 [facility] 4 Y Y [facility] [place]CL [place] 1 [place] [address] [facility] 1/> AREAS 4 Y Y EA 15 HOSPITAL HOSPITAL MIN GAIT TRAINJ W/STAIR BLOOD 13404 [facility] COUNT 4 Y Y COMPLETE HOSPITAL HOSPITAL AUTOMATED HOSPITAL G0378 [facility] OBSERVATI 4 Y Y ON HOSPITAL HOSPITAL SERVICE PER HOUR OBSERVATI 49674 STEFAN MELENDREZ ON CARE 4 NURSE DISCHARGE PRACTITIO NER GR MANAGEMEN T BASIC 31123 [facility] METABOLIC 4 Y Y PANEL [facility] CALCIUM TOTAL INJECTION J1644 [facility] HEPARIN 4 Y Y SODIUM [facility] PER 1000 UNITS INJECTION J1644 [facility] HEPARIN 4 Y Y [facility]PITAL PER 1000 UNITS BASIC 12431 [facility] METABOLIC 4 Y Y PANEL [facility] CALCIUM TOTAL SBSQ 61023 KMRYAN MELENDREZ OBSERVATI 4 NURSE ON PRACTITIO CARE/DAY NER GR 25 MINUTES CULTURE 18396 [facility] BACTERIAL 4 Y Y HOSPITAL [facility] QUANTTATI VE COLONY COUNT URINE CUL BACT 41836 [facility] AEROBIC 4 Y Y ADDL [facility] METHS DEFINITIV E EA ISOL URNLS DIP 69794 [facility] 4 Y Y STICK/TAB HOSPITAL HOSPITAL LET RGNT AUTO W/O MICROSCOP Y BLOOD 97957 [facility] COUNT 4 Y Y [facility] AUTOMATED SUSCEPTIB 09140 [facility] LTY STDY 4 Y Y [facility] IAL MICRO/AGA R DILUTJ INJECTION J2405 [facility] 4 Y Y [facility] ON HCL PER 1 MG INJECTION J2405 [facility] 4 [facility] MG BLOOD 64032 [facility] COUNT 4 Y Y [facility] [place] [address] [facility] MAGNESIUM 4 Y Y [facility] BASIC 49742 [facility] METABOLIC 4 Y Y [facility] CALCIUM TOTAL INJECTION J1644 [facility] HEPARIN 4 Y Y [facility] PER 1000 UNITS INJECTION J1644 [facility] HEPARIN 4 Y Y [facility] PER 1000 UNITS BASIC 22290 [facility] METABOLIC 4 Y Y [facility] CALCIUM TOTAL CUL BACT 94464 [facility] XCPT 4 Y Y URINE [facility] BLOOD/STO OL AEROBIC ISOL SBSQ 37442 [facility] OBSERVATI 4 NURSE ON PRACTITIO CARE/DAY NER GR 25 MINUTES BLOOD 43300 [facility] 4 Y Y [facility] AUTOMATED INJECTION J2405 [facility] 4 Y Y [facility] ON HCL PER 1 MG IADNA S 20563 [facility] AUREUS 4 Y Y [facility] IN RESIST AMP PROBE TQ PHYSICAL 89705 [facility] THERAPY 4 Y Y [facility] THER[facility] 26188 [facility] IC PX 1/> 4 Y Y [facility] EACH 15 MIN EXERCISES TECHNETIU A9500 [facility] TC-99M 4 Y Y [facility] DX PER STUDY DOSE CV STRS 84383 [facility] TST 4 Y Y XERS&/OR HOSPITAL HOSPITAL RX CONT ECG TRCG ONLY CV STRS 30390 [facility] EVANGELIST[facility] TST 4 MEDICAL XERS&/OR SERV RX CONT FOUNDATIO ECG W/O I&R INJECTION J2270 [facility] MORPHINE 4 Y Y [facility] UP TO 10 MG BLOOD 88865 [facility] COUNT 4 Y Y [facility] AUTOMATED MYOCARDIA 53893 [facility] EVANGELISTA CHANCE L SPECT 4 MEDICAL MULTIPLE SERV STUDIES FOUNDATIO INJ J1720 [facility] 4 Y Y [facility] SODIUM SUCCINATE TO 100 MG LIPID 29441 [place] [address] Y Y [facility] [place] [address] [place] ANGIOGRAP 4 MEDICAL SHIRAZ HY CHEST SERV W/CONTRAS FOUNDATIO T/NONCONT RAST CV STRS 03754 [facility] EVANGELISTA CHANCE TST 4 MEDICAL XERS&/OR SERV RX CONT FOUNDATIO ECG I&R ONLY NATRIURET 49899 [facility] 4 Y Y [facility] ECHO 30617 [facility] HSU, TTHRC R-T 4 MEDICAL JR. VEE 2D SERV W/WOM-MOD FOUNDATIO E COMPL SPEC&COLR D SBSQ 26821 [facility]AM[facility] RAC OBSERVATI 4 NURSE ON PRACTITIO CARE/DAY NER GR 25 MINUTES BASIC [address] [place] [address] Y [facility] CALCIUM TOTAL INJECTION J[address] ON 0.1 MG INJECTION J1644 [place] [address] Y Y [facility] PER 1000 UNITS INJECTION J1200 [place] [address] Y [facility] RAMINE HCL UP TO 50 MG AMB A0427 [facility] 4 Fausto-ASHISH AMADOR ALS CO EMS CO EMS EMERGENCY TRANSPORT LEVEL 1 INJECTION J1644 [place] [address] Y Y [facility] PER 1000 UNITS INJECTION J2785 [address] ON 0.1 MG BASIC [address] [place] [address] Y [facility] CALCIUM TOTAL INJECTION C9113 [facility] UNIVERS 4 Y Y [facility] OLE SODIUM PER VIAL THROMBOPL 75246 [facility] ASTIN 4 Y Y TIME [facility] PARTIAL PLASMA/WH OLE BLOOD ECG 46552 [facility] CRISTINA CHI ROUTINE 4 MEDICAL ECG SERV W/LEAST FOUNDATIO 12 LDS N I&R ONLY HEMOGLOBI 35073 [facility] N 4 Y Y GLYCOSYLA [facility] KURT A1C LOCM Q9967 [facility] [phone] 4 Y Y MG/ML [facility] IODINE CONCENTRA TION PER ML RADIOLOGI 25274 [facility] JAN C 4 MEDICAL BAR EXAMINATI SERV ON CHEST FOUNDATIO [place] FRONTAL DAY CARE S5100 [facility] 4 N ACTIVE N ACTIVE ADULT; DAY CENT DAY CENT PER 15 MINUTES ECG 73854 [facility] ROUTINE 4 Y Y ECG [facility] W/LEAST 12 LDS TRCG ONLY W/O I&[place] [address] [facility] TROPONIN 4 Y Y [facility] JOSE ALFREDO BLOOD 24549 [facility] COUNT 4 Y Y [facility] AUTOMATED GROUND A0425 [facility] MILEAGE 4 N-ASHISH Lambert-ASHISH PER CO EMS CO EMS STATUTE MILE NONEMER A0120 LKLP CAC LKLP CAC TRNSPRT: 4 INC INC [facility] REGION 9 REGION 9 [facility] AREA/OTH SYS PROTHROMB 75879 [facility] IN TIME Y Y [facility] NONEMERG A0120 LKLP CAC LKLP CAC TRNSPRT: 4 INC INC [facility] REGION 9 REGION 9 [facility] AREA/OTH SYS DAY CARE S5100 [facility] 4 N ACTIVE N ACTIVE ADULT; DAY CENT DAY CENT PER 15 MINUTES DAY CARE S5100 [facility] 4 N ACTIVE N ACTIVE ADULT; DAY CENT DAY CENT PER 15 MINUTES NEBULIZER E0570 PATIENT PATIENT WITH 4 AIDS INC AIDS INC COMPRESSO R DAY CARE S5100 [facility] 4 N ACTIVE N ACTIVE ADULT; DAY CENT DAY CENT PER 15 MINUTES DAY CARE S5100 [facility] 4 N ACTIVE N ACTIVE ADULT; DAY CENT DAY CENT PER 15 MINUTES DAY CARE S5100 [facility] 4 N ACTIVE N ACTIVE ADULT; DAY CENT DAY CENT PER 15 MINUTES DAY CARE S5100 [facility] 4 N ACTIVE N ACTIVE ADULT; DAY CENT DAY CENT PER 15 MINUTES PHYSICAL 53309 [facility] 4 N ACTIVE N ACTIVE EVALUATIO DAY CENT DAY CENT N PORTABLE E0443 JANAE JANAE O2 4 HOME HOME CONTENTS MEDICAL MEDICAL GASEOUS 1 EQUIPME EQUIPME MO SUPPLY=1 UNIT DAY CARE S5100 [facility] 4 N ACTIVE N ACTIVE ADULT; DAY CENT DAY CENT PER 15 MINUTES DAY CARE S5100 [facility] 4 N ACTIVE N ACTIVE ADULT; DAY CENT DAY CENT PER 15 MINUTES DAY CARE S5100 [facility] 4 N ACTIVE N ACTIVE ADULT; DAY CENT DAY CENT PER 15 MINUTES NONEMERG A0120 LKLP CAC LKLP CAC TRNSPRT: 4 INC INC [facility] 9 REGION 9 [facility] AREA/OTH SYS NONEMERG A0120 LKLP CAC LKLP CAC TRNSPRT: 4 INC INC [facility] 9 REGION 9 [facility] AREA/OTH SYS DAY CARE S5100 [facility] 4 N ACTIVE N ACTIVE ADULT; DAY CENT DAY CENT PER 15 MINUTES RADIOLOGI 85668 [facility] C [facility] EXAMINATI HOSP HOSP ON CHEST [place] FRONTAL ECG 74483 [facility] ROUTINE 4 [facility] ECG HOSP HOSP W/LEAST 12 LDS TRCG ONLY W/O I&R CT THORAX 88003 [facility] W/O 4 RADIOLOGI PET CONTRAST C MATERIAL PROFESSIO URNLS DIP 53012 [facility] STICK/TAB HOSP HOSP LET RGNT AUTO W/O MICROSCOP Y INJECTION J2405 [facility] 4 [facility] ONDANSETR HOSP HOSP ON HCL [place] [address] [place] [address] [facility] ABDOMEN & 4 RADIOLOGI PET PELVIS C W/[place] [address] [facility] TROPONIN 4 [facility] QUANTITAT HOSP HOSP JOSE ALFREDO INJECTION C9113 [facility] 4 [facility] PANTOPRAZ HOSP HOSP OLE SODIUM PER VIAL AMB A0422 [facility] OXYGEN&O2 [address] [place] [address] SUPPLIES LIFE LIFE LIFE SQUAD SQUAD SUSTAININ G SITUATION THROMBOPL 54752 [facility] ASTIN 4 [facility] TIME HOSP HOSP PARTIAL PLASMA/WH OLE BLOOD AMB A0427 [facility] SERVICE [address] [place] [address] ALS LIFE LIFE EMERGENCY SQUAD SQUAD TRANSPORT LEVEL 1 BLOOD 37201 [facility] COUNT 4 [facility] COMPLETE HOSP HOSP AUTO&AUTO DIFRNTL WBC COLLECTIO 75629 [facility] N VENOUS 4 [facility] BLOOD [facility] HOSP VENIPUNCT URE NONINVASI 05420 [facility] VE 4 [facility] EAR/PULSE HOSP HOSP OXIMETRY MULTIPLE DETER THERAPEUT 24830 [facility] IC 4 [facility] INJECTION HOSP HOSP IV PUSH EACH NEW DRUG CATH CLCT P9612 [facility] SPECIMEN 4 [facility] SINGLE HOSP HOSP PT ALL PLACES SERVICE PROTHROMB 97246 [facility] IN TIME 4 [facility] THER 44304 [facility] PROPH/DX 4 [facility] NJX IV HOSP HOSP PUSH SINGLE/1S T SBST/DRUG ECG 37361 [facility] ROUTINE 4 [facility] ECG HOSP HOSP W/LEAST 12 LDS TRCG ONLY W/O I&R GROUND A0425 [facility] MILEAGE [address] [place] [address] PER LIFE LIFE [place] [address] [facility] AMYLASE 4 [facility] HOSP COMPREHEN 73012 [facility] SIVE 4 [facility] [place] [address] [facility] LIPASE 4 [facility] [place] HOSP ECG 25159 [facility] MARYA ROUTINE 4 EMERGENCY DIR ECG PHYS PSC W/LEAST 12 LDS I&R ONLY NATRIURET 77233 [facility] IC 4 [facility] [place] HOSP ADMN SET A7005 PATIENT PATIENT W/SM VOL 4 AIDS INC AIDS INC NONFILTR NEBULIZR NON-DISPB L NEBULIZER E0570 PATIENT PATIENT WITH 4 AIDS INC AIDS INC COMPRESSO R PHARM G0333 ADDIE ADDIE DISP[address] INHAL DRUG DRUG RX; INITIAL 30-DAY SUPPLY THERAPEUT [address] [facility] 4 GERALDO KIRILL PROPHYLAC TIC/DX PHYSICIAN INJECTION S SUBQ/IM INJECTION J1040 [facility] 4 GERALDO KIRILL METHYLPRE DNISOLONE PHYSICIAN ACETATE S 80 MG DAY CARE S5100 [facility] 4 N ACTIVE N ACTIVE ADULT; DAY CENT DAY CENT PER 15 MINUTES DAY CARE S5100 [facility] 4 N ACTIVE N ACTIVE ADULT; DAY CENT DAY CENT PER 15 MINUTES DAY CARE S5100 [facility] 4 N ACTIVE N ACTIVE ADULT; DAY CENT DAY CENT PER 15 MINUTES PORTABLE E0443 JANAE JANAE O2 4 HOME HOME CONTENTS MEDICAL MEDICAL GASEOUS 1 EQUIPME EQUIPME MO SUPPLY=1 UNIT NONEMERG A0120 LKLP CAC LKLP CAC TRNSPRT: 4 INC INC [facility] [address] [place] [address]/OTH SYS DAY CARE S5100 [facility] 4 N ACTIVE N ACTIVE ADULT; DAY CENT DAY CENT PER 15 MINUTES DAY CARE S5100 [facility] 4 N ACTIVE N ACTIVE ADULT; DAY CENT DAY CENT PER 15 MINUTES NONEMERG A0120 LKLP CAC LKLP CAC TRNSPRT: 4 INC INC [facility] REGION 9 [facility] AREA/OTH SYS NONEMERG A0120 LKLP CAC LKLP CAC TRNSPRT: 4 INC INC [facility] [address] [place] [address]/OTH SYS DAY CARE S5100 [facility] 4 N ACTIVE N ACTIVE ADULT; DAY CENT DAY CENT PER [address] 4 GERALDO GERALDO METHYLPRE DNISOLONE PHYSICIAN PHYSICIAN ACETATE S S [address] [facility] 4 GERALDO II QUENTIN PROPHYLAC TIC/DX PHYSICIAN INJECTION S SUBQ/IM DAY CARE S5100 [facility] 4 N ACTIVE N ACTIVE ADULT; DAY CENT DAY CENT PER 15 MINUTES RADIOLOGI 06346 RADIOLOGY SCHMITTER C 4 NEREIDA EXAMINATI ASSOCIATE ON CHEST S [facility] FR[facility]AL URNLS DIP [address] [facility] 4 GERALDO KIRILL STICK/TAB LET RGNT PHYSICIAN NON-AUTO S W/O MICRSCP ECG [address] [facility] ROUTINE 4 GERALDO RAL ECG MED CTR W/LEAST 12 LDS I&R ONLY PORTABLE E0443 JANAE JANAE O2 4 HOME HOME CONTENTS MEDICAL MEDICAL GASEOUS 1 EQUIPME EQUIPME MO SUPPLY=1 UNIT NONEMERG A0120 LKLP CAC LKLP CAC TRNSPRT: 4 INC INC [facility]/OTH SYS DAY CARE S5100 [facility] 4 N ACTIVE N ACTIVE ADULT; DAY CENT DAY CENT PER 15 MINUTES DAY CARE S5100 [facility] 4 N ACTIVE N ACTIVE ADULT; DAY CENT DAY CENT PER 15 MINUTES NONEMERG A0120 LKLP CAC LKLP CAC TRNSPRT: 4 INC INC MINI-[address]/OTH SYS NONEMERG A0120 LKLP CAC LKLP CAC TRNSPRT: 4 INC INC [facility]/OTH SYS DAY CARE S5100 [facility] 4 N ACTIVE N ACTIVE ADULT; DAY CENT DAY CENT PER 15 MINUTES DAY CARE S5100 [facility] 3 N ACTIVE N ACTIVE ADULT; DAY CENT DAY CENT PER 15 MINUTES DAY CARE S5100 [facility] 3 N ACTIVE N ACTIVE ADULT; DAY CENT DAY CENT PER 15 MINUTES DAY CARE S5100 [facility] 3 N ACTIVE N ACTIVE ADULT; DAY CENT DAY CENT PER 15 MINUTES DAY CARE S5100 [facility] 3 N ACTIVE N ACTIVE ADULT; DAY CENT DAY CENT PER 15 MINUTES DAY CARE S5100 [facility] 3 N ACTIVE N ACTIVE ADULT; DAY CENT DAY CENT PER 15 MINUTES DAY CARE S5100 [facility] 3 N ACTIVE N ACTIVE ADULT; DAY CENT DAY CENT PER 15 MINUTES DAY CARE S5100 [facility] 3 N ACTIVE N ACTIVE ADULT; DAY CENT DAY CENT PER 15 MINUTES DAY CARE S5100 [facility] 3 N ACTIVE N ACTIVE ADULT; DAY CENT DAY CENT PER 15 MINUTES NONEMERG A0120 LKLP CAC LKLP CAC TRNSPRT: 3 INC INC [facility] REGION 9 REGION 9 [facility] AREA/OTH SYS NONEMERG A0120 LKLP CAC LKLP CAC TRNSPRT: 3 INC INC [facility] 9 REGION 9 [facility] AREA/OTH SYS DAY CARE S5100 [facility] 3 N ACTIVE N ACTIVE ADULT; DAY CENT DAY CENT PER [address] [facility] 3 GERALDO KIRILL METHYLPRE DNISOLONE PHYSICIAN ACETATE S 80 MG THERAPEUT 37714 [facility] 3 GERALDO KIRILL PROPHYLAC TIC/DX PHYSICIAN INJECTION S SUBQ/IM DAY CARE S5100 [facility] 3 N ACTIVE N ACTIVE ADULT; DAY CENT DAY CENT PER 15 MINUTES DAY CARE S5100 [facility] 3 N ACTIVE N ACTIVE ADULT; DAY CENT DAY CENT PER 15 MINUTES OCCUPATIO 98174 [facility] NAL 3 N ACTIVE N ACTIVE THERAPY DAY CENT DAY CENT EVALUATIO N PHYSICAL 98168 [facility] THERAPY 3 N ACTIVE N ACTIVE EVALUATIO DAY CENT DAY CENT N DAY CARE S5100 [facility] 3 N ACTIVE N ACTIVE ADULT; DAY CENT DAY CENT PER 15 MINUTES DAY CARE S5100 [facility] 3 N ACTIVE N ACTIVE ADULT; DAY CENT DAY CENT PER 15 MINUTES DAY CARE S5100 [facility] 3 N ACTIVE N ACTIVE ADULT; DAY CENT DAY CENT PER 15 MINUTES DAY CARE S5100 [facility] 3 N ACTIVE N ACTIVE ADULT; DAY CENT DAY CENT PER 15 MINUTES DAY CARE S5100 [facility] 3 N ACTIVE N ACTIVE ADULT; DAY CENT DAY CENT PER 15 MINUTES DAY CARE S5100 [facility] 3 N ACTIVE N ACTIVE ADULT; DAY CENT DAY CENT PER 15 MINUTES DAY CARE S5100 [facility] 3 N ACTIVE N ACTIVE ADULT; DAY CENT DAY CENT PER 15 MINUTES DAY CARE S5100 [facility] 3 N ACTIVE N ACTIVE ADULT; DAY CENT DAY CENT PER 15 MINUTES NONEMERG A0120 L[facility] CAC LKLP CAC TRNSPRT: 3 INC INC [facility] REGION 9 REGION 9 MTN AREA/OTH SYS INJECTION J0696 [facility] 3 Y Y CEFTRIAXO [facility] NE SODIUM PER 250 MG HOSPITAL G0378 [facility] Y Y ON HOSPITAL HOSPITAL SERVICE PER HOUR ECG 09597 [facility] ROUTINE 3 Y Y ECG HOSPITAL HOSPITAL W/LEAST 12 LDS TRCG ONLY W/O I&R ECG 90556 [facility] ROUTINE 3 MEDICAL NAN ECG SERV W/LEAST FOUNDATIO 12 LDS I&R ONLY INJECTION J0696 [facility] 3 Y Y CEFTRIAXO [facility] HOSPITAL NE SODIUM PER 250 MG INJECTION J2270 [facility] MORPHINE 3 Y Y SULFATE [facility] UP TO 10 MG INJECTION J2405 [facility] 3 Y [facility] PER 1 MG PRESSURIZ 89166 [facility] ED/NONPRE 3 Y Y SSURIZED [facility] HOSPITAL INHALATIO N TREATMENT SBSQ 19706 [facility] 3 MEDICAL LALITA CARE/DAY SERV 25 FOUNDATIO MINUTES SBSQ 65576 [facility] 3 EMERGENCY III QUENTIN CARE/DAY SERVICES 25 MINUTES PRESSURIZ 29503 [facility] ED/NONPRE 3 Y [facility] IN[facility] N TREATMENT BLOOD 05725 [facility] COUNT 3 Y Y HEMATOCRI [facility] T INITIAL 12732 [facility] 3 MEDICAL CARE/DAY SERV 50 FOUNDATIO MINUTES BLOOD 08358 [facility] COUNT 3 Y Y COMPLETE [facility] [place] [address] [facility] TROPONIN 3 Y Y [facility] JOSE ALFREDO BLOOD 21454 [facility] COUNT 3 Y Y HEMOGLOBI [facility] N INJECTION J2405 [facility] 3 Y [facility] PER 1 MG INJECTION J2270 [facility] MORPHINE 3 Y Y SULFATE [facility] UP TO 10 MG INJECTION J0696 [facility] 3 Y Y CEFTRIAXO [facility] NE SODIUM PER 250 MG ECG 78464 [facility] ROUTINE 3 MEDICAL NAN ECG SERV W/LEAST FOUNDATIO 12 LDS I&R ONLY ECG 90731 [facility] ROUTINE 3 Y Y ECG [facility] W/LEAST 12 LDS TRCG ONLY W/O I&R CHROMATOG 38065 [facility] RADHA 3 Y Y [facility] COLUMN 1 ANALYTE JAMILA COMPREHEN 52062 [facility] SIVE 3 Y Y MEDICAL CENTER HOSPITAL PANEL LIPID 48105 [facility] PANEL 3 Y Y [facility] MASS 16108 [facility] SPECT&DAVILA 3 Y Y [facility] SPECT NONDRG ANAL JAMILA EA RADIOLOGI 30125 [facility] C 3 MEDICAL EXAMINATI SERV ON CHEST FOUNDATIO [place]ING[place] FRONTAL URNLS DIP 45595 [facility] 3 Y Y STICK/TAB [facility] HOSPITAL LET RGNT AUTO W/[place] [address] [facility] FOLIC 3 Y Y ACID RBC HOSPITAL HOSPITAL ECG [id number] [facility] ROUTINE 3 Y Y ECG HOSPITAL HOSPITAL W/LEAST 12 LDS TRCG ONLY W/O I&R CYANOCOBA 47737 [facility] JUN 3 Y Y [facility] [place] B-[address] [place] [address] [facility] MAGNESIUM 3 Y Y HOSPITAL HOSPITAL ECG 25039 [facility] CRISTINA CHI ROUTINE 3 MEDICAL ECG SERV W/LEAST FOUNDATIO 12 LDS I&R ONLY NATRIURET 72323 [facility] IC 3 Y Y [facility] IRON 41442 [facility] BINDING 3 Y Y CAPACITY [facility] HEMOGLOBI 76918 [facility] N 3 Y Y GLYCOSYLA [facility] KURT A1C INJECTION J2270 [facility] MORPHINE 3 Y Y SULFATE [facility] UP TO 10 MG INITIAL 90948 [facility] 3 EMERGENCY CARE/DAY SERVICES 70 [place] [address] [facility] PHOSPHORU 3 Y Y S HOSPITAL [facility] INORGANIC PROTHROMB 99985 [facility] IN TIME 3 [place] [address] [facility] TROPONIN 3 Y Y QUANTITAT [facility] [place] [address] [facility] FREE 3 Y Y THYROXINE [facility] BLOOD 64620 [facility] COUNT 3 Y Y COMPLETE [facility] HOSPITAL AUTO&AUTO DIFRNTL WBC INITIAL 49843 [facility]/DAY SERV [place] [address] [facility] THYROID 3 Y Y STIMULATI [facility] NG HORMONE TSH THROMBOPL 35476 [facility] ASTIN 3 Y Y TIME HOSPITAL HOSPITAL PARTIAL PLASMA/WH OLE BLOOD BASIC 71604 [facility] METABOLIC 3 Y Y PANEL HOSPITAL [facility] CALCIUM TOTAL EXTERNAL 83347 [facility] ECG 3 Y Y [facility] ANALYSIS REPORT XTRNL ECG 64239 [facility] & 48 HR 3 Y Y RECORDING [facility] HOSPITAL XTRNL ECG [id number] [facility] GILL[facility]O CHI 3 MEDICAL CONTINUOU SERV S RHYTHM FOUNDATIO W/I&R UP TO 48 HRS DAY CARE S5100 [facility] 3 N ACTIVE N ACTIVE ADULT; DAY CENT DAY CENT PER 15 MINUTES DAY CARE S5100 [facility] 3 N ACTIVE N ACTIVE ADULT; DAY CENT DAY CENT PER 15 MINUTES OCCUPATIO 78234 [facility] NAL 3 N ACTIVE N ACTIVE THERAPY DAY CENT DAY CENT EVALUATIO N PHYSICAL 74714 [facility] THERAPY 3 N ACTIVE N ACTIVE EVALUATIO DAY CENT DAY CENT N DAY CARE S5100 [facility] 3 N ACTIVE N ACTIVE ADULT; DAY CENT DAY CENT PER 15 MINUTES DAY CARE S5100 [facility] 3 N ACTIVE N ACTIVE ADULT; DAY CENT DAY CENT PER 15 MINUTES LOCM Q9967 [facility] [id number] 3 Y Y MG/ML HOSPITAL HOSPITAL IODINE CONCENTRA TION PER ML RADIOLOGI 76977 [facility] C 3 Y Y [facility] SINGLE VIEW FRONTAL ECG 26629 [facility] ROUTINE 3 Y Y ECG [facility] W/LEAST 12 LDS TRCG ONLY W/O I&[place] [address] [facility] ANGIOGRAP 3 MEDICAL BAR HY CHEST SERV W/CONTRAS FOUNDATIO T/NONCONT RAST ECG 73252 [facility] ROUTINE 3 MEDICAL NAN ECG SERV W/LEAST FOUNDATIO 12 LDS I&R ONLY PROTHROMB 15781 [facility] IN TIME 3 Y Y [facility] [facility] ANGIO 270[address] MAR[place]ON JAN ABD&PLVIS 3 MEDICAL BAR CNTRST SERV MTRL W/WO FOUNDATIO CNTRST IMG INJ [id number] [facility] METHYLPRD 3 [facility] SU[facility] 125 MG GROUND A0425 [facility] MILEAGE 3 Fausto-ASHISH Lambert-ASHISH PER CO EMS CO EMS STATUTE MILE THERAPEUT 88555 [facility] IC 3 Y Y INJECTION [facility] [place] [address] [facility] INFUSION 3 Y Y THERAPY/P [facility] ROPHYLAXI S /DX 1ST TO 1 HR BLOOD 86514 [facility] COUNT 3 Y Y [facility] [place] [address] [facility] TROPONIN 3 [facility] JOSE ALFREDO BASIC 47289 [facility] METABOLIC 3 Y Y [facility] CALCIUM TOTAL AMB A0422 [facility] OXYGEN&O2 3 Fausto-ASHISH AMADOR SUPPLIES CO EMS CO EMS LIFE SUSTAININ G SITUATION AMB A0427 [facility] 3 N-ASHISH Lambert-ASHISH ALS CO EMS CO EMS EMERGENCY TRANSPORT LEVEL 1 INJECTION J1200 [facility] [address] [facility] RAMINE HCL UP TO 50 MG PHYSICAL 22404 [facility] 3 N ACTIVE N ACTIVE EVALUATIO DAY CENT DAY CENT N DAY CARE S5100 [facility] 3 N ACTIVE N ACTIVE ADULT; DAY CENT DAY CENT PER 15 MINUTES DAY CARE S5100 [facility] 3 N ACTIVE N ACTIVE ADULT; DAY CENT DAY CENT PER 15 MINUTES OCCUPATIO 49489 [facility] 3 N ACTIVE N ACTIVE THERAPY DAY CENT DAY CENT EVALUATIO N DAY CARE S5100 [facility] 3 N ACTIVE N ACTIVE ADULT; DAY CENT DAY CENT PER 15 MINUTES DAY CARE S5100 [facility] 3 N ACTIVE N ACTIVE ADULT; DAY CENT DAY CENT PER 15 MINUTES DAY CARE S5100 [facility] 3 N ACTIVE N ACTIVE ADULT; DAY CENT DAY CENT PER 15 MINUTES PHYSICAL 24755 [facility] 3 N ACTIVE N ACTIVE EVALUATIO DAY CENT DAY CENT N DAY CARE S5100 [facility] 3 N ACTIVE N ACTIVE ADULT; DAY CENT DAY CENT PER 15 MINUTES DAY CARE S5100 [facility] 3 N ACTIVE N ACTIVE ADULT; DAY CENT DAY CENT PER 15 MINUTES DAY CARE S5100 [facility] 3 N ACTIVE N ACTIVE ADULT; DAY CENT DAY CENT PER 15 MINUTES DAY CARE S5100 [facility] 3 N ACTIVE N ACTIVE ADULT; DAY CENT DAY CENT PER 15 MINUTES OCCUPATIO 79462 [facility] 3 N ACTIVE N ACTIVE THERAPY DAY CENT DAY CENT EVALUATIO N PHYSICAL 62162 [facility] 3 N ACTIVE N ACTIVE EVALUATIO DAY CENT DAY CENT N DAY CARE S5100 [facility] 3 N ACTIVE N ACTIVE ADULT; DAY CENT DAY CENT PER 15 MINUTES DAY CARE S5100 [facility] 3 N ACTIVE N ACTIVE ADULT; DAY CENT DAY CENT PER 15 MINUTES DAY CARE S5100 [facility] 3 N ACTIVE N ACTIVE ADULT; DAY CENT DAY CENT PER 15 MINUTES OCCUPATIO 68765 [facility] 3 N ACTIVE N ACTIVE THERAPY DAY CENT DAY CENT EVALUATIO N DAY CARE S5100 [facility] 3 N ACTIVE N ACTIVE ADULT; DAY CENT DAY CENT PER 15 MINUTES DAY CARE S5100 [facility] 3 N ACTIVE N ACTIVE ADULT; DAY CENT DAY CENT PER 15 MINUTES DAY CARE S5100 [facility] 3 N ACTIVE N ACTIVE ADULT; DAY CENT DAY CENT PER 15 MINUTES OCCUPATIO 57395 [facility] 3 N ACTIVE N ACTIVE THERAPY DAY CENT DAY CENT EVALUATIO N PHYSICAL 01950 [facility] 3 N ACTIVE N ACTIVE EVALUATIO DAY CENT DAY CENT N DAY CARE S5100 [facility] 3 N ACTIVE N ACTIVE ADULT; DAY CENT DAY CENT PER 15 MINUTES DAY CARE S5100 [facility] 3 N ACTIVE N ACTIVE ADULT; DAY CENT DAY CENT PER 15 MINUTES OCCUPATIO 34475 [facility] 3 N ACTIVE N ACTIVE THERAPY DAY CENT DAY CENT EVALUATIO N PHYSICAL 76504 [facility] 3 N ACTIVE N ACTIVE EVALUATIO DAY CENT DAY CENT N DAY CARE S5100 [facility] 3 N ACTIVE N ACTIVE ADULT; DAY CENT DAY CENT PER 15 MINUTES DAY CARE S5100 [facility] 3 N ACTIVE N ACTIVE ADULT; DAY CENT DAY CENT PER 15 MINUTES DAY CARE S5100 [facility] 3 N ACTIVE N ACTIVE ADULT; DAY CENT DAY CENT PER 15 MINUTES DAY CARE S5100 [facility] 3 N ACTIVE N ACTIVE ADULT; DAY CENT DAY CENT PER 15 MINUTES DAY CARE S5100 [facility] 3 N ACTIVE N ACTIVE ADULT; DAY CENT DAY CENT PER 15 MINUTES PHYSICAL 24612 [facility] 3 N ACTIVE N ACTIVE EVALUATIO DAY CENT DAY CENT N OCCUPATIO 60398 [facility] NAL 3 N ACTIVE N ACTIVE THERAPY DAY CENT DAY CENT EVALUATIO N DAY CARE S5100 [facility] 3 N ACTIVE N ACTIVE ADULT; DAY CENT DAY CENT PER 15 MINUTES DAY CARE S5100 [facility] 3 N ACTIVE N ACTIVE ADULT; DAY CENT DAY CENT PER 15 MINUTES OCCUPATIO 92638 [facility] 3 N ACTIVE N ACTIVE THERAPY DAY CENT DAY CENT EVALUATIO N DAY CARE S5100 [facility] 3 N ACTIVE N ACTIVE ADULT; DAY CENT DAY CENT PER 15 MINUTES DAY CARE S5100 [facility] 3 N ACTIVE N ACTIVE ADULT; DAY CENT [place] [address] [place] [address] RADIOLOGY ADAMARIS HEAD/BRAI 3 III BRAYAN N W/O ASSOCIATE CONTRAST S [place] [address] [place] [address] Y [facility] 365[address] [place] COOK W/VC [address] [facility] EXPIRATOR SERV Y KARINE FOUNDATIO [place] [address] [place] C[place] DIFFUSING [address] [facility] CAPACITY [facility] [address] [place] DISCHARGE 3 MEDICAL ALI DAY SERV MANAGEMEN FOUNDATIO T 30 MIN/< BASIC 56522 [facility] METABOLIC 3 Y Y PANEL [facility] CALCIUM TOTAL PLETHYSMO 46879 [place] GRAPHY [address] [facility] LUNG SERV VOLUMES FOUNDATIO W/WO AIRWAY RESIST BASIC 99075 [facility] METABOLIC 3 Y Y PANEL [facility] CALCIUM TOTAL RADIOLOGI 51957 [facility] C 3 Y Y [facility] S[facility]IEW FRONTAL CULTURE 63610 [facility] BACTERIAL 3 Y Y BLOOD [facility] AEROBIC W/[place] [address] [facility] MULT STEP 3 Y Y METHOD [facility] NOS EACH ORGANISM SBSQ 06431 [facility] 3 MEDICAL ALI CARE/DAY SERV [place] [address] [facility] TROPONIN 3 Y Y [facility] JOSE ALFREDO BLOOD 51331 [facility] COUNT 3 Y Y COMPLETE [facility] AUTO&AUTO DIFRNTL WBC PROTHROMB 31432 [facility] IN TIME 3 Y Y [facility] ECG 49782 [facility] ROUTINE 3 Y Y ECG [facility] W/LEAST 12 LDS TRCG ONLY W/O I&R ECHO 76344 [facility] TTC R-T 3 Y Y 2D [facility] W/WOM-MOD E COMPL SPEC&[place] [address] [facility] MAGNESIUM 3 Y Y HOSPITAL [facility] URNLS DIP 20296 [facility] 3 Y Y STICK/TAB [facility] LET RGNT AUTO W/O MICROSCOP Y INITIAL 34674 [facility] 3 MEDICAL ALI CARE/DAY SERV 70 FOUNDATIO MINUTES BLOOD 18615 [facility] COUNT 3 Y Y COMPLETE [facility] AUTO&[place] [address] [facility] TROPONIN 3 Y Y QUANTITAT [facility] [place] [address] [facility] THYROID 3 Y Y STIMULATI [facility] [place] [address] [facility] TROPONIN 3 Y Y QUANTITAT [facility] JOSE ALFREDO BLOOD 41992 [place] COUNT 3 [facility] COM[facility]TE [facility] MED CTR AUTO&AUTO DIFRNTL WBC COLLECTIO 99083 NEW NEW N VENOUS 3 [facility] BLOOD MED [facility] MED CTR VENIPUNCT URE BLOOD 93092 [facility] COUNT 3 Y Y COMPLETE [facility] AUTOMATED THER 35753 NEW NEW PROPH/DX 3 [facility] NJX IV MED CTR MED CTR PUSH SINGLE/1S T SBST/DRUG PROTHROMB 04650 NEW NEW IN TIME 3 [facility] CT ANGIO 90210 MARLON MALHOTRA ABD&PLVIS 3 MEDICAL ALAYNA CNTRST SERV MTRL W/WO FOUNDATIO CNTRST IMG FIBRIN 69356 NEW NEW DGRADJ 3 [facility] SPLT MED CTR MED CTR PRODUCTS QUANTITAT JOSE ALFREDO ECG 16109 [facility] ROUTINE 3 Y Y ECG [facility] W/LEAST 12 LDS TRCG ONLY W/O I&R ROTARY A0436 PHI AIR PHI AIR WING AIR 3 MEDICAL MEDICAL MILEAGE PER STATUTE MILE COMPREHEN 17935 [facility] SIVE 3 Y Y METABOLIC [facility] [place] [address] MARLON MALHOTRA ANGIOGRAP 3 MEDICAL ALAYNA HY CHEST SERV W/CONTRAS [place] [address] [facility] LIPASE 3 Y Y HOSPITAL HOSPITAL CREATINE 84035 NEW NEW KINASE 3 [facility] TOTAL MED CTR MED CTR ECG 43713 [place] ROUTINE 3 MEDICAL NAN ECG SERV W/LEAST FOUNDATIO 12 LDS I&R ONLY LACTATE 05260 [facility] DEHYDROGE 3 Y Y NASE LDH [facility] RADIOLOGI 29610 [facility] C 3 Y Y EXAMINATI [facility] ON CHEST SINGLE VIEW FRONTAL AMB A0431 PHI AIR PHI AIR SERVICE 3 MEDICAL MEDICAL CONVNTION AIR SRVC TRANSPORT [address] BLOOD 79402 [place] COUNT 3 [facility] SMEAR MED CTR MED CTR MCRSCP W/MNL DIFRNTL WBC COUNT THROMBOPL 60316 [facility] 3 Y Y TIME [facility] PARTIAL PLASMA/WH OLE BLOOD DAY CARE S5100 [facility] 3 N ACTIVE N ACTIVE ADULT; DAY CENT DAY CENT PER 15 MINUTES OCCUPATIO 05923 [facility] 3 N ACTIVE N ACTIVE THERAPY DAY CENT DAY CENT EVALUATIO N DAY CARE S5100 [facility] 3 N ACTIVE N ACTIVE ADULT; DAY CENT DAY CENT PER 15 MINUTES DAY CARE S5100 [facility] 3 N ACTIVE N ACTIVE ADULT; DAY CENT DAY CENT PER 15 MINUTES DAY CARE S5100 [facility] 3 N ACTIVE N ACTIVE ADULT; DAY CENT DAY CENT PER 15 MINUTES ECHO 31482 [facility]ON CARDOSO [facility] R-T 3 MEDICAL LALITA 2D SERV W/WOM-MOD FOUNDATIO E COMPL SPEC&COLR D DAY CARE S5100 [facility] 3 N ACTIVE N ACTIVE ADULT; DAY CENT DAY CENT PER 15 MINUTES OCCUPATIO 41275 [facility] 3 N ACTIVE N ACTIVE THERAPY DAY CENT DAY CENT EVALUATIO N OCCUPATIO 07816 [facility] 3 N ACTIVE N ACTIVE THERAPY DAY CENT DAY CENT EVALUATIO N DAY CARE S5100 [facility] 3 N ACTIVE N ACTIVE ADULT; DAY CENT DAY CENT PER 15 MINUTES DAY CARE S5100 [facility] 3 N ACTIVE N ACTIVE ADULT; DAY CENT DAY CENT PER 15 MINUTES DAY CARE S5100 [facility] 3 N ACTIVE N ACTIVE ADULT; DAY CENT DAY CENT PER 15 MINUTES DAY CARE S5100 [facility] 3 N ACTIVE N ACTIVE ADULT; DAY CENT DAY CENT PER 15 MINUTES DAY CARE S5100 [facility] 3 N ACTIVE N ACTIVE ADULT; DAY CENT DAY CENT PER 15 MINUTES PHYSICAL 98158 [facility] 3 N ACTIVE N ACTIVE EVALUATIO DAY CENT DAY CENT N DAY CARE S5100 [facility] 3 N ACTIVE N ACTIVE ADULT; DAY CENT DAY CENT PER 15 MINUTES DAY CARE S5100 [facility] 3 N ACTIVE N ACTIVE ADULT; DAY CENT DAY CENT PER 15 MINUTES DAY CARE S5100 [facility] 3 N ACTIVE N ACTIVE ADULT; DAY CENT DAY CENT PER 15 MINUTES DAY CARE S5100 [facility] 3 N ACTIVE N ACTIVE ADULT; DAY CENT DAY CENT PER 15 MINUTES DAY CARE S5100 [facility] 3 N ACTIVE N ACTIVE ADULT; DAY CENT DAY CENT PER 15 MINUTES OCCUPATIO 51657 [facility] 3 N ACTIVE N ACTIVE THERAPY DAY CENT DAY CENT EVALUATIO N DAY CARE S5100 [facility] 3 N ACTIVE N ACTIVE ADULT; DAY CENT DAY CENT PER 15 MINUTES DAY CARE S5100 [facility] 3 N ACTIVE N ACTIVE ADULT; DAY CENT DAY CENT PER 15 MINUTES DAY CARE S5100 [facility] 3 N ACTIVE N ACTIVE ADULT; DAY CENT DAY CENT PER 15 MINUTES DAY CARE S5100 [facility] 3 N ACTIVE N ACTIVE ADULT; DAY CENT DAY CENT PER 15 MINUTES DAY CARE S5100 [facility] 3 N ACTIVE N ACTIVE ADULT; DAY CENT DAY CENT PER 15 MINUTES DAY CARE S5100 [facility] 3 N ACTIVE N ACTIVE ADULT; DAY CENT DAY CENT PER 15 MINUTES DAY CARE S5100 [facility] 3 N ACTIVE N ACTIVE ADULT; DAY CENT DAY CENT PER 15 MINUTES DAY CARE S5100 [facility] 3 N ACTIVE N ACTIVE ADULT; DAY CENT DAY CENT PER 15 MINUTES DAY CARE S5100 [facility] 3 N ACTIVE N ACTIVE ADULT; DAY CENT DAY CENT PER 15 MINUTES DAY CARE S5100 [facility] 3 N ACTIVE N ACTIVE ADULT; DAY CENT DAY CENT PER 15 MINUTES DAY CARE S5100 [facility] 3 N ACTIVE N ACTIVE ADULT; DAY CENT DAY CENT PER 15 MINUTES DAY CARE S5100 [facility] 3 N ACTIVE N ACTIVE ADULT; DAY CENT DAY CENT PER 15 MINUT[address] [place] [address] JACQUELINE ROUTINE 3 MEDICAL ECG SERV W/LEAST FOUNDATIO 12 LDS I&R ONLY CREATINE 11188 [facility] KINASE 3 Y Y TOTAL [facility] LIPID 88146 [facility] PANEL 3 Y Y [facility] COMPREHEN 41308 [facility] SIVE 3 Y Y METABOLIC [facility] [place] [address] [facility] THYROID 3 Y Y STIMULATI [facility] NG HORMONE TSH BLOOD 54370 [facility] COUNT 3 Y Y [facility] [address] [facility] FREE 3 Y Y THYROXINE [facility] ECG 97313 [facility] ROUTINE 3 Y Y ECG [facility] W/LEAST 12 LDS TRCG ONLY W/O I&R DAY CARE S5100 [facility] 3 N ACTIVE N ACTIVE ADULT; DAY CENT DAY CENT PER 15 MINUTES DAY CARE S5100 [facility] 3 N ACTIVE N ACTIVE ADULT; DAY CENT DAY CENT PER 15 MINUTES DAY CARE S5100 [facility] 3 N ACTIVE N ACTIVE ADULT; DAY CENT DAY CENT PER 15 MINUTES DAY CARE S5100 [facility] 3 N ACTIVE N ACTIVE ADULT; DAY CENT DAY CENT PER 15 MINUTES DAY CARE S5100 [facility] 3 N ACTIVE N ACTIVE ADULT; DAY CENT DAY CENT PER 15 MINUTES DAY CARE S5100 [facility] 3 N ACTIVE N ACTIVE ADULT; DAY CENT DAY CENT PER 15 MINUTES DAY CARE S5100 [facility] 3 N ACTIVE N ACTIVE ADULT; DAY CENT DAY CENT PER 15 MINUTES DAY CARE S5100 [facility] 3 N ACTIVE N ACTIVE ADULT; DAY CENT DAY CENT PER [address] SIVE 3 [facility] METABOLIC MEDICAL MEDICAL PANEL CENTER CENTER LIPID [address] ST PANEL 3 [facility] C[facility] COLLECTIO 86913 ST THRELKELD N VENOUS 3 [facility] BLOOD VENIPUNCT PHYSICIAN URE S BLOOD [address] COUNT 3 [facility] AUTO&AUTO [place] [address] [facility] THYROID 3 [facility] HORMONE TSH DAY CARE S5100 [facility] 3 N ACTIVE N ACTIVE ADULT; DAY CENT DAY CENT PER 15 MINUTES DAY CARE S5100 [facility] 3 N ACTIVE N ACTIVE ADULT; DAY CENT DAY CENT PER 15 MINUTES DAY CARE S5100 [facility] 3 N ACTIVE N ACTIVE ADULT; DAY CENT DAY CENT PER 15 MINUTES DAY CARE S5100 [facility] 3 N ACTIVE N ACTIVE ADULT; DAY CENT DAY CENT PER 15 MINUTES DAY CARE S5100 [facility] 3 N ACTIVE N ACTIVE ADULT; DAY CENT DAY CENT PER 15 MINUTES DAY CARE S5100 [facility] 3 N ACTIVE N ACTIVE ADULT; DAY CENT DAY CENT PER 15 MINUTES DAY CARE S5100 [facility] 3 N ACTIVE N ACTIVE ADULT; DAY CENT DAY CENT PER 15 MINUTES DAY CARE S5100 [facility] 3 N ACTIVE N ACTIVE ADULT; DAY CENT DAY CENT PER 15 MINUTES DAY CARE S5100 [facility] 3 N ACTIVE N ACTIVE ADULT; DAY CENT DAY CENT PER 15 MINUTES DAY CARE S5100 [facility] 3 N ACTIVE N ACTIVE ADULT; DAY CENT DAY CENT PER 15 MINUTES DAY CARE S5100 [facility] 3 N ACTIVE N ACTIVE ADULT; DAY CENT DAY CENT PER 15 MINUTES DAY CARE S5100 [facility] 3 N ACTIVE N ACTIVE ADULT; DAY CENT DAY CENT PER 15 MINUTES DAY CARE S5100 [facility] 3 N ACTIVE N ACTIVE ADULT; DAY CENT DAY CENT PER 15 MINUTES DAY CARE S5100 [facility] 3 N ACTIVE N ACTIVE ADULT; DAY CENT DAY CENT PER 15 MINUTES DAY CARE S5100 [facility] 3 N ACTIVE N ACTIVE ADULT; DAY CENT DAY CENT PER 15 MINUTES DAY CARE S5100 [facility] 3 N ACTIVE N ACTIVE ADULT; DAY CENT DAY CENT PER 15 MINUTES DAY CARE S5100 [facility] 3 N ACTIVE N ACTIVE ADULT; DAY CENT DAY CENT PER 15 MINUTES DAY CARE S5100 [facility] 3 N ACTIVE N ACTIVE ADULT; DAY CENT DAY CENT PER 15 MINUTES DAY CARE S5100 [facility] 3 N ACTIVE N ACTIVE ADULT; DAY CENT DAY CENT PER 15 MINUTES DAY CARE S5100 [facility] 3 N ACTIVE N ACTIVE ADULT; DAY CENT DAY CENT PER 15 MINUTES DAY CARE S5100 [facility] 3 N ACTIVE N ACTIVE ADULT; DAY CENT DAY CENT PER 15 MINUTES DAY CARE S5100 [facility] 3 N ACTIVE N ACTIVE ADULT; DAY CENT DAY CENT PER 15 MINUTES DAY CARE S5100 [facility] 3 N ACTIVE N ACTIVE ADULT; DAY CENT DAY CENT PER [address] MIN[place] ECG [address] JACQUELINE ROUTINE 3 MEDICAL ECG SERV W/LEAST FOUNDATIO 12 LDS [place] [address] [facility] INFUSION 3 Y Y HYDRATION [facility] EACH ADDITIONA L HOUR BLOOD 67291 [facility] COUNT 3 Y Y COMPLETE [facility] [place] [address] [facility] TROPONIN 3 Y Y QUANTITAT [facility] JOSE ALFREDO ECG 26162 [facility] ROUTINE 3 Y Y ECG [facility] W/LEAST 12 LDS TRCG ONLY W/O I&R GROUND A0425 [facility] MILEAGE 3 N-ASHISH N-ASHISH PER CO EMS CO EMS STATUTE MILE INJECTION J2405 [facility] 3 Y Y [facility] ON HCL PER 1 MG THER 68833 [facility] PROPH/DX 3 Y Y NJX IV [facility] PUSH SINGLE/1S T SBST/DRUG PROTHROMB 18200 [facility] IN TIME 3 Y Y [facility] THROMBOPL 22706 [facility] ASTIN 3 Y Y TIME [facility] PARTIAL PLASMA/WH OLE BLOOD AMB A0422 [facility] OXYGEN&O2 3 PERRY AMADOR SUPPLIES CO EMS CO EMS LIFE SUSTAININ G SITUATION RADIOLOGI 90857 [place] MERHAR C 3 MEDICAL GAR EXAMINATI SERV ON CHEST FOUNDATIO [place]ING[place] FRONTAL BASIC 80675 [facility] METABOLIC 3 Y Y PANEL [facility] CALCIUM TOTAL INFUSION J7030 [facility] NORMAL 3 Y Y SALINE [facility] SOLUTION 1000 CC AMB A0427 [facility] SERVICE 3 PERRY AMADOR ALS CO EMS CO EMS EMERGENCY TRANSPORT LEVEL 1 DAY CARE S5100 [facility] 3 N ACTIVE N ACTIVE ADULT; DAY CENT DAY CENT PER 15 MINUTES DAY CARE S5100 [facility] 3 N ACTIVE N ACTIVE ADULT; DAY CENT DAY CENT PER 15 MINUTES DAY CARE S5100 [facility] 3 N ACTIVE N ACTIVE ADULT; DAY CENT DAY CENT PER 15 MINUTES DAY CARE S5100 [facility] 3 N ACTIVE N ACTIVE ADULT; DAY CENT DAY CENT PER 15 MINUTES DAY CARE S5100 [facility] 3 N ACTIVE N ACTIVE ADULT; DAY CENT DAY CENT PER 15 MINUTES DAY CARE S5100 [facility] 3 N ACTIVE N ACTIVE ADULT; DAY CENT DAY CENT PER 15 MINUTES DAY CARE S5100 [facility] 3 N ACTIVE N ACTIVE ADULT; DAY CENT DAY CENT PER 15 MINUTES DAY CARE S5100 [facility] 3 N ACTIVE N ACTIVE ADULT; DAY CENT DAY CENT PER 15 MINUTES DAY CARE S5100 [facility] 3 N ACTIVE N ACTIVE ADULT; DAY CENT DAY CENT PER 15 MINUTES DAY CARE S5100 [facility] 3 N ACTIVE N ACTIVE ADULT; DAY CENT DAY CENT PER 15 MINUTES DAY CARE S5100 [facility] 3 N ACTIVE N ACTIVE ADULT; DAY CENT DAY CENT PER 15 MINUTES DAY CARE S5100 [facility] 3 N ACTIVE N ACTIVE ADULT; DAY CENT DAY CENT PER 15 MINUTES DAY CARE S5100 [facility] 3 N ACTIVE N ACTIVE ADULT; DAY CENT DAY CENT PER 15 MINUTES DAY CARE S5100 [facility] 3 N ACTIVE N ACTIVE ADULT; DAY CENT DAY CENT PER 15 MINUTES DAY CARE S5100 [facility] 3 N ACTIVE N ACTIVE ADULT; DAY CENT DAY CENT PER 15 MINUTES DAY CARE S5100 [facility] 3 N ACTIVE N ACTIVE ADULT; DAY CENT DAY CENT PER 15 MINUTES RADEX 05677 [facility] SPINE 3 [facility] LUMBOSACR ADDIE ADDIE AL 2/[address] [place] [address] RADIOLOGY PALMYRA ABDOMEN & 3 [facility] PELVIS ASSOCIATE W/O [facility] CONTRAST MATERIAL COLLECTIO 42608 [facility] BLOOD VENIPUNCT PHYSICIAN URE S BLOOD [address] COUNT 3 [facility] COMPLETE MEDICAL MEDICAL AUTOMATED CENTER CENTER COMPREHEN [address] ST SIVE 3 [facility] METABOLIC MEDICAL MEDICAL PANEL CENTER CENTER URNLS DIP [id number] STICK/TAB LET RGNT PHYSICIAN NON-AUTO S W/O MICRSCP DAY CARE S5100 [facility] 3 N ACTIVE N ACTIVE ADULT; DAY CENT DAY CENT PER 15 MINUTES DAY CARE S5100 [facility] 3 N ACTIVE N ACTIVE ADULT; DAY CENT DAY CENT PER 15 MINUTES DAY CARE S5100 [facility] 3 N ACTIVE N ACTIVE ADULT; DAY CENT DAY CENT PER 15 MINUTES DAY CARE S5100 [facility] 3 N ACTIVE N ACTIVE ADULT; DAY CENT DAY CENT PER [address] [facility] IC 3 GERALDO KIRILL PROPHYLAC TIC/DX PHYSICIAN INJECTION S SUBQ/IM INJECTION [id number] [facility] [place] 3 GERALDO KIRILL METHYLPRE DNISOLONE PHYSICIAN ACETATE S 80 MG DAY CARE S5100 [facility] 3 N ACTIVE N ACTIVE ADULT; DAY CENT DAY CENT PER 15 MINUTES DAY CARE S5100 [facility] 3 N ACTIVE N ACTIVE ADULT; DAY CENT DAY CENT PER 15 [address]LS DIP [address] [place] 3 GERALDO II QUENTIN STICK/TAB LET RGNT PHYSICIAN NON-AUTO S W/O MICRSCP DAY CARE S5100 [facility] 3 N ACTIVE N ACTIVE ADULT; DAY CENT DAY CENT PER 15 MINUTES DAY CARE S5100 [facility] 3 N ACTIVE N ACTIVE ADULT; DAY CENT DAY CENT PER 15 [address]LS DIP [address] [place] 3 GERALDO II QUENTIN STICK/TAB LET RGNT PHYSICIAN NON-AUTO S W/O MICRSCP COMPREHEN 08532 [facility] SIVE 3 [facility] METABOLIC MEDICAL MEDICAL PANEL CENTER CENTER BLOOD 70585 [facility] COUNT 3 [facility] MEDICAL AUTO&AUTO CENTER CENTER DIFRNTL WBC COLLECTIO 84618 [facility] 3 GERALDO II QUENTIN BLOOD [place] [address] [facility] THYROID 3 [facility] STIMULATI [facility] C[facility] HORMONE TSH CULTURE 34744 [facility] BACTERIAL [facility] C[facility] CENTER VE COLONY COUNT URINE DAY CARE S5100 [facility] 3 N ACTIVE N ACTIVE ADULT; DAY CENT DAY CENT PER 15 MINUTES PRTBLE [id number] JANAE CARDOSO GASEOUS 3 HOME HOME O2 SYS MEDICAL MEDICAL RENT; EQUIPME EQUIPME FLWMTR HUMIDFR&M ASK O2 CONC 1 E1390 JANAE CARDOSO DEL [place] 3 HOME HOME 85%/>02 MEDICAL MEDICAL CONC AT EQUIPME EQUIPME PRSC FLW RATE CULTURE [address] BACTERIAL 3 GERALDO GERALDO QUANTTATI MEDICALCE MEDICALCE VE COLONY NTER NTER COUNT URINE POLYSOM 74270 SUSAN DAVIS 6/>YRS 3 [facility] SLEEP [facility] INC W/CPAP 4/> [facility] D[facility] 41359 [facility] GERALDO STICK/TAB LET RGNT PHYSICIAN NON-AUTO S W/O MICRSCP DAY CARE S5100 [facility] 3 N ACTIVE N ACTIVE ADULT; DAY CENT DAY CENT PER 15 MINUTES DAY CARE S5100 [facility] 3 N ACTIVE N ACTIVE ADULT; DAY CENT DAY CENT PER 15 MINUTES DAY CARE S5100 [facility] 3 N ACTIVE N ACTIVE ADULT; DAY CENT DAY [place] [address] [place] [address] [facility] MAGNESIUM 3 Y Y [facility] BASIC [address] [facility] METABOLIC 3 Y Y PANEL DAY [facility] [address] [facility] DISCHARGE 3 Y OF JR [facility] T 30 MIN/< BASIC 09568 [facility] METABOLIC 3 Y Y [facility] CALCIUM TOTAL SBSQ 97064 [facility] 3 Y OF JR DON CARE/DAY [facility] [address] [place] [address] [facility] OSMOLALIT 3 Y Y Y URINE [facility] CREATININ 57230 [facility] E OTHER 3 Y Y SOURCE [facility] URNLS DIP 88963 [facility] UN[facility] 3 Y Y STICK/TAB [facility] [place] [address] [facility] URINE 3 Y Y SODIUM [facility] BLOOD 89485 [facility] COUNT 3 Y Y COMPLETE [facility] AUTOMATED BLOOD 70956 [facility] COUNT 3 Y Y [facility] AUTOMATED SYPHILIS 25254 [facility] TEST 3 Y Y [facility] NEMAL ANTIBODY QUAL PROTHROMB 72716 [facility] IN TIME 3 Y Y HOSPITAL HOSPITAL ECG 72681 [facility] ROUTINE 3 Y Y ECG [facility] W/LEAST 12 LDS TRCG ONLY W/O I&R ECHO 68261 [facility] TTHRC R-T 3 Y Y 2D [facility] W/WOM-MOD E COMPL SPEC&COLR D DUPLEX 27491 [facility] SCAN 3 Y Y EXTRACRAN [facility] IAL ART COMPL BI STUDY SBSQ 27691 [facility] 3 MEDICAL CARE/DAY SERV 25 FOUNDATIO MINUTES ANTINUCLE 39925 [facility] 3 Y Y ANTIBODIE [facility] S LACEY BASIC 02832 [facility] 3 Y Y [facility] CALCIUM TOTAL BASIC 60092 [facility] 3 Y Y [facility] CALCIUM TOTAL RADIOLOGI 44287 [facility] C 3 Y Y [facility] FR[facility] THROMBOPL 53030 [facility] ASTIN 3 Y Y TIME [facility] PARTIAL PLASMA/WH OLE BLOOD INITIAL 19288 [facility] 3 MEDICAL LACEY CARE/DAY SERV 30 FOUNDATIO MINUTES AMB A0427 [facility] SERVICE 3 PERRY AMADOR ALS CO EMS CO EMS EMERGENCY TRANSPORT LEVEL 1 DUPLEX 46396 [place] [facility] 3 MEDICAL REGLA EXTRACRAN SERV IAL ART FOUNDATIO COMPL BI STUDY LOCM Q9967 [facility] [id number] 3 Y Y MG/ML [facility] IODINE [place] [address] [facility] FOLIC 3 Y Y [place] [facility] [address] [facility] ANGIOGRAP 3 Y Y HY [facility] W/CONTRAS T/NONCONT RAST LIPID 59117 [facility] PANEL 3 [place] [facility] [place] [address] [facility] HEAD/BRAI 3 Y Y N W/O [facility] CONTRAST MATERIAL CYANOCOBA 15278 [facility] JUN 3 Y Y VITAMIN [facility] B-12 ECG 46139 MARLON CRISTINA CHI ROUTINE 3 MEDICAL ECG SERV W/LEAST FOUNDATIO 12 LDS I&R ONLY DAY CARE S5100 [facility] 3 N ACTIVE N ACTIVE ADULT; DAY CENT DAY CENT PER 15 MINUTES ECG 92873 [facility] ROUTINE 3 Y Y ECG [facility] W/LEAST 12 LDS TRCG ONLY W/O I&R GROUND A0425 [facility] MILEAGE 3 N-ASHISH N-ASHISH PER CO EMS CO EMS STATUTE MILE PROTHROMB 28904 [facility] IN TIME 3 Y Y [facility] C-REACTIV 42929 [facility] E PROTEIN 3 Y Y [facility] [place] [address] [facility] THYROID 3 Y [facility] T[facility] B[facility] 40975 [facility] COUNT 3 Y Y COMPLETE [facility] [place] [address] [facility] TROPONIN 3 Y [facility] JOSE ALFREDO DAY CARE S5100 [facility] 3 N ACTIVE N ACTIVE ADULT; DAY CENT DAY CENT PER 15 MINUTES DAY CARE S5100 [facility] 2 N ACTIVE N ACTIVE ADULT; DAY CENT DAY CENT PER 15 MINUTES PRTBLE E0431 JANAE CARDOSO GASEOUS 2 HOME HOME O2 SYS MEDICAL MEDICAL RENT; EQUIPME EQUIPME FLWMTR HUMIDFR&M ASK O2 CONC 1 E1390 JNAAE CARDOSO DEL PORT 2 HOME HOME 85%/>02 MEDICAL MEDICAL CONC AT EQUIPME EQUIPME PRSC FLW RATE DAY CARE S5100 [facility] 2 N ACTIVE N ACTIVE ADULT; DAY CENT DAY CENT PER 15 MINUTES DAY CARE S5100 [facility] 2 N ACTIVE N ACTIVE ADULT; DAY CENT DAY CENT PER 15 MINUTES DAY CARE S5100 [facility] 2 N ACTIVE N ACTIVE ADULT; DAY CENT DAY CENT PER 15 MINUTES DAY CARE S5100 [facility] 2 N ACTIVE N ACTIVE ADULT; DAY CENT DAY CENT PER 15 MINUTES DAY CARE S5100 [facility] 2 N ACTIVE N ACTIVE ADULT; DAY CENT DAY CENT PER 15 MINUTES DAY CARE S5100 [facility] 2 N ACTIVE N ACTIVE ADULT; DAY CENT DAY CENT PER 15 MINUTES DAY CARE S5100 [facility] 2 N ACTIVE N ACTIVE ADULT; DAY CENT DAY CENT PER 15 MINUTES DAY CARE S5100 [facility] 2 N ACTIVE N ACTIVE ADULT; DAY CENT DAY CENT PER 15 MINUTES DAY CARE S5100 [facility] 2 N ACTIVE N ACTIVE ADULT; DAY CENT DAY CENT PER 15 MINUTES DAY CARE S5100 [facility] 2 N ACTIVE N ACTIVE ADULT; DAY CENT DAY CENT PER 15 MINUTES DAY CARE S5100 [facility] 2 N ACTIVE N ACTIVE ADULT; DAY CENT DAY CENT PER 15 MINUTES DAY CARE S5100 [facility] 2 N ACTIVE N ACTIVE ADULT; DAY CENT DAY CENT PER 15 MINUTES DAY CARE S5100 [facility] 2 N ACTIVE N ACTIVE ADULT; DAY CENT DAY CENT PER 15 MINUTES PRTBLE E0431 JANAE CARDOSO GASEOUS 2 HOME HOME O2 SYS MEDICAL MEDICAL RENT; EQUIPME EQUIPME FLWMTR HUMIDFR&M ASK O2 CONC 1 E1390 JANAE CARDOSO DEL PORT 2 HOME HOME 85%/>02 MEDICAL MEDICAL CONC AT EQUIPME EQUIPME PRSC FLW RATE DAY CARE S5100 [facility] 2 N ACTIVE N ACTIVE ADULT; DAY CENT DAY CENT PER 15 MINUTES DAY CARE S5100 [facility] 2 N ACTIVE N ACTIVE ADULT; DAY CENT DAY CENT PER 15 MINUTES DAY CARE S5100 [facility] 2 N ACTIVE N ACTIVE ADULT; DAY CENT DAY CENT PER 15 MINUTES DAY CARE S5100 [facility] 2 N ACTIVE N ACTIVE ADULT; DAY CENT DAY CENT PER 15 MINUTES DAY CARE S5100 [facility] 2 N ACTIVE N ACTIVE ADULT; DAY CENT DAY CENT PER 15 MINUTES DAY CARE S5100 [facility] 2 N ACTIVE N ACTIVE ADULT; DAY CENT DAY CENT PER 15 MINUTES POLYSOM 01769 SUSAN DAVIS 6/>YRS 2 MEM HOS[facility] MEM HOS[facility] SLEEP 4/> INC INC ADDL ROOSEVELT ATTND POLYSOM 95652 MARLON DEAN 6/>YRS 2 MEDICAL ANI SLEEP SERV W/CPAP FOUNDATIO 4/> ADDL ROOSEVELT ATTND DAY CARE S5100 [facility] 2 N ACTIVE N ACTIVE ADULT; DAY CENT DAY CENT PER 15 MINUTES DAY CARE S5100 [facility] 2 N ACTIVE N ACTIVE ADULT; DAY CENT DAY CENT PER 15 MINUTES DAY CARE S5100 [facility] 2 N ACTIVE N ACTIVE ADULT; DAY CENT DAY CENT PER 15 MINUTES DAY CARE S5100 [facility] 2 N ACTIVE N ACTIVE ADULT; DAY CENT DAY CENT PER 15 MINUTES DAY CARE S5100 [facility] 2 N ACTIVE N ACTIVE ADULT; DAY CENT DAY CENT PER 15 MINUTES DAY CARE S5100 [facility] 2 N ACTIVE N ACTIVE ADULT; DAY CENT DAY CENT PER 15 MINUTES DAY CARE S5100 [facility] 2 N ACTIVE N ACTIVE ADULT; DAY CENT DAY CENT PER 15 MINUTES DAY CARE S5100 [facility] 2 N ACTIVE N ACTIVE ADULT; DAY CENT DAY CENT PER 15 MINUTES PRTBLE E0431 JANAE CARDOSO GASEOUS 2 HOME HOME O2 SYS MEDICAL MEDICAL RENT; EQUIPME EQUIPME FLWMTR HUMIDFR&M ASK O2 CONC 1 E1390 JANAE CARDOSO DEL PORT 2 HOME HOME 85%/>02 MEDICAL MEDICAL CONC AT EQUIPME EQUIPME PRSC FLW RATE DAY CARE S5100 [facility] 2 N ACTIVE N ACTIVE ADULT; DAY CENT DAY CENT PER 15 MINUTES DAY CARE S5100 [facility] 2 N ACTIVE N ACTIVE ADULT; DAY CENT DAY CENT PER 15 MINUTES THERAPEUT 05629 [facility] IC PX 1/> 2 Y Y AREAS [facility] EACH [place] [address] [facility] 1/> AREAS 2 Y Y EA 15 HOSPITAL HOSPITAL MIN GAIT TRAINJ W/STAIR BLOOD 99549 [facility] COUNT 2 Y Y COMPLETE [facility] AUTOMATED BASIC 85366 [facility] METABOLIC 2 Y Y [facility] 95134 [facility] 2 NURSE BELKYS DAY PRACTITIO MANAGEMEN NER GR T 30 MIN/< BASIC 83190 [facility] METABOLIC [address] [facility] TOTAL PLETHYSMO 31688 [facility] GRAPHY 2 Y Y [facility] VOLUMES W/WO AIRWAY RESIST SBSQ 24823 [place] [address] NURSE BELKYS CARE/DAY PRACTITIO 35 NER GR MINUTES SPMTRY 20129 [facility] W/VC 2 Y Y EXPIRATOR [facility] Y KARINE W/WO MXML VOL VNTJ INTRDUCR/ C1894 [facility] SHEATH 2 Y Y NOT [facility] EP NON-LASR GLUC BLD 25658 [facility] GLUC MNTR 2 Y Y [facility] [place] [address] [facility] MAGNESIUM 2 Y Y [facility] LOCM Q9967 [facility] 300-399 2 Y Y MG/ML [facility] IODINE CONCENTRA TION PER ML SBSQ 20077 [facility] 2 NURSE BELKYS CARE/DAY PRACTITIO 35 [place] [address] [facility] THYROID 2 Y [facility] T[facility] BLO[facility] 73947 [facility] COUNT 2 Y Y [facility] AUTOMATED INITIAL 62304 [facility] 2 MEDICAL CARE/DAY SERV 70 FOUNDATIO MINUTES CLOSURE C1760 [facility] DEVICE 2 Y Y VASCULAR [facility] CATH PLMT 19811 MARLON PENA R HRT & 2 MEDICAL ARTS SERV W/NJX & FOUNDATIO ANGIO IMG S&I BASIC 49716 [facility] METABOLIC 2 Y Y PANEL [facility] CALCIUM TOTAL GUIDE C1769 [facility] WIRE 2 Y Y HOSPITAL HOSPITAL COMBINED 3723 [facility] RIGHT&LEF 2 Y Y T HEART [facility] CARD CATHETERI ZATION COMBINED 8854 [facility] RIGHT AND 2 Y Y LEFT [facility] HEART ANGIOCARD IOGRAPHY CORONARY 8856 [facility] ARTERIOGR 2 [facility] Y [facility] CATHETERS BASIC 37948 [facility] METABOLIC 2 Y Y PANEL [facility] CALCIUM TOTAL PLETHYSMO 41083 MARLON JOEY GRAPHY [address] [facility] LUNG SERV VOLUMES FOUNDATIO W/WO AIRWAY RESIST INITIAL 22741 [place] [address] NURSE BELKYS CARE/DAY PRACTITIO 30 NER GR MINUTES PHYSICAL 50332 [facility] THERAPY 2 Y Y EVALUATIO [facility] N BLOOD 15388 [facility] COUNT 2 Y Y COMPLETE [facility] [place] [address] [facility] TROPONIN 2 Y [facility] [place] [address] [facility] 1/> AREAS 2 Y Y EA [address] [place] [address] MIN GAIT TRAINJ W/[place] [address] MARLON JOEY DIFFUSING [address] [facility] CAPACITY SERV FOUNDATIO LIPID 33227 [facility] PANEL 2 Y Y [facility] SPMTRY 05100 MARLON COOK W/VC 2 MEDICAL PEPITO EXPIRATOR SERV Y KARINE FOUNDATIO W/WO MXML VOL VNTJ ECHO 66837 [facility] FLETCHER TTHRC R-T 2 MEDICAL 2D SERV W/WOM-MOD FOUNDATIO E COMPL SPEC&COLR D ECG 78010 MARLON Sheikh ROUTINE 2 MEDICAL ECG SERV W/LEAST FOUNDATIO 12 LDS I&R ONLY DAY CARE S5100 [facility] SERVICES 2 N ACTIVE N ACTIVE ADULT; DAY CENT DAY CENT [place] 15 [place] [address] [facility] TROPONIN 2 Y Y QUANTITAT [facility] JOSE ALFREDO COLLECTIO 87195 [facility] N VENOUS 2 Y Y BLOOD [facility] VENIPUNCT URE BLOOD 28244 [facility] COUNT 2 Y Y COMPLETE [facility] AUTO&AUTO DIFRNTL WBC INITIAL 00548 [place] [address] MEDICAL MJ CARE/DAY SERV 70 FOUNDATIO MINUTES PROTHROMB 03182 [facility] IN TIME 2 Y Y [facility] CATH PLMT 57763 [facility] R HRT & 2 Y Y ARTS [facility] W/NJX & ANGIO IMG S&I ECG 20820 [facility] ROUTINE 2 Y Y ECG [facility] W/LEAST 12 LDS TRCG ONLY W/O I&R CLOSURE C1760 [facility] DEVICE 2 Y Y VASCULAR [facility] GROUND A0425 [facility] MILEAGE 2 PERRY AMADOR PER CO EMS CO EMS STATUTE MILE THROMBOPL 88234 [facility] ASTIN 2 Y Y TIME [facility] PARTIAL PLASMA/WH OLE BLOOD AMB A0422 [facility] OXYGEN&O2 2 PERRY AMADOR SUPPLIES CO EMS CO EMS LIFE SUSTAININ G SITUATION RADIOLOGI 81345 [facility] C 2 Y Y [facility] [place] FRONTAL BASIC 67846 [facility] 2 Y Y PANEL [facility] CALCIUM TOTAL AMB A0427 [facility] SERVICE 2 PERRY AMADOR ALS CO EMS CO EMS EMERGENCY TRANSPORT LEVEL 1 DAY CARE S5100 [facility] 2 N ACTIVE N ACTIVE ADULT; DAY CENT DAY CENT PER 15 MINUTES DAY CARE S5100 [facility] 2 N ACTIVE N ACTIVE ADULT; DAY CENT DAY CENT PER 15 MINUTES DAY CARE S5100 [facility] 2 N ACTIVE N ACTIVE ADULT; DAY CENT DAY CENT PER 15 MINUTES DAY CARE S5100 [facility] 2 N ACTIVE N ACTIVE ADULT; DAY CENT DAY CENT PER 15 MINUTES DAY CARE S5100 [facility] 2 N ACTIVE N ACTIVE ADULT; DAY CENT DAY CENT PER 15 MINUTES DAY CARE S5100 [facility] 2 N ACTIVE N ACTIVE ADULT; DAY CENT DAY CENT PER [address] 2 GERALDOKUMAR CHOW METHYLPRE DNISOLONE PHYSICIAN PHYSICIAN ACETATE S S [address] [facility] IC 2 GERALDO II QUENTIN PROPHYLAC TIC/DX PHYSICIAN INJECTION S SUBQ/IM DAY CARE S5100 [facility] 2 N ACTIVE N ACTIVE ADULT; DAY CENT DAY CENT PER 15 MINUTES PRTBLE E0431 JANAE CARDOSO GASEOUS 2 HOME HOME O2 SYS MEDICAL MEDICAL RENT; EQUIPME EQUIPME FLWMTR HUMIDFR&M ASK O2 CONC 1 E1390 JANAE CARDOSO DEL PORT 2 HOME HOME 85%/>02 MEDICAL MEDICAL CONC AT EQUIPME EQUIPME PRSC FLW RATE DAY CARE S5100 [facility] 2 N ACTIVE N ACTIVE ADULT; DAY CENT DAY CENT PER 15 MINUTES DAY CARE S5100 [facility] 2 N ACTIVE N ACTIVE ADULT; DAY CENT DAY CENT PER 15 MINUTES DAY CARE S5100 [facility] 2 N ACTIVE N ACTIVE ADULT; DAY CENT DAY CENT PER 15 MINUTES DAY CARE S5100 [facility] 2 N ACTIVE N ACTIVE ADULT; DAY CENT DAY CENT PER 15 MINUTES DAY CARE S5100 [facility] 2 N ACTIVE N ACTIVE ADULT; DAY CENT DAY CENT PER [address] [facility] STOOL 2 [facility] AEROBIC ADDIE ADDIE ISOL SALMONELL A&SHIGELL CUL BACT 43335 [facility] STOOL 2 [facility] AEROBIC ADDIE ADDIE ADDL PATHOGENS &[place] [address] [facility] SHIGA-LIK 2 [facility] E TOXIN ADDIE ADDIE INF AGENT [address] [facility] [address] DET 2 [facility] NUCLEIC ADDIE ADDIE ACID CLOSTRIDI UM AMP PROBE DAY CARE S5100 [facility] 2 N ACTIVE N ACTIVE ADULT; DAY CENT DAY CENT PER 15 MINUTES COMPREHEN 24236 [facility] SIVE 2 [facility] METABOLIC ADDIE ADDIE PANEL BLOOD 84958 [facility] COUNT 2 [facility] COMPLETE ADDIE ADDIE AUTO&AUTO DIFRNTL WBC COLLECTIO 81322 [facility] N VENOUS 2 [facility] [place] [address] [facility] INFUSION 2 [facility] HYDRATION ADDIE ADDIE INITIAL 31 MIN-1 HOUR ADMINISTR G0008 [facility] ATION OF 2 [facility] INFLUENZA VIRUS PHYSICIAN PHYSICIAN VACCINE S S IIV 32320 [facility] VACCINE 2 [facility] QUENTIN PRESERV FREE PHYSICIAN INCREASED S AG CONTENT IM DAY CARE S5100 [facility] 2 N ACTIVE N ACTIVE ADULT; DAY CENT DAY CENT PER 15 MINUTES DAY CARE S5100 [facility] 2 N ACTIVE N ACTIVE ADULT; DAY CENT DAY CENT PER 15 MINUTES DAY CARE S5100 [facility] 2 N ACTIVE N ACTIVE ADULT; DAY CENT DAY CENT PER 15 MINUTES PRTBLE E0431 JANAE CARDOSO GASEOUS 2 HOME HOME O2 SYS MEDICAL MEDICAL RENT; EQUIPME EQUIPME FLWMTR HUMIDFR&M ASK O2 CONC 1 E1390 JANAE CARDOSO DEL PORT 2 HOME HOME 85%/>02 MEDICAL MEDICAL CONC AT EQUIPME EQUIPME PRSC FLW RATE DAY CARE S5100 [facility] 2 N ACTIVE N ACTIVE ADULT; DAY CENT DAY CENT PER 15 MINUTES DAY CARE S5100 [facility] 2 N ACTIVE N ACTIVE ADULT; DAY CENT DAY CENT PER 15 MINUTES DAY CARE S5100 [facility] 2 N ACTIVE N ACTIVE ADULT; DAY CENT DAY CENT PER 15 MINUTES DAY CARE S5100 [facility] 2 N ACTIVE N ACTIVE ADULT; DAY CENT DAY CENT PER 15 MINUTES DAY CARE S5100 [facility] 2 N ACTIVE N ACTIVE ADULT; DAY CENT DAY CENT PER 15 MINUTES DAY CARE S5100 [facility] 2 N ACTIVE N ACTIVE ADULT; DAY CENT DAY CENT PER 15 MINUTES DAY CARE S5100 [facility] 2 N ACTIVE N ACTIVE ADULT; DAY CENT DAY CENT PER 15 MINUTES DAY CARE S5100 [facility] 2 N ACTIVE N ACTIVE ADULT; DAY CENT DAY CENT PER 15 MINUTES DAY CARE S5100 [facility] 2 N ACTIVE N ACTIVE ADULT; DAY CENT DAY CENT PER 15 MINUTES DAY CARE S5100 [facility] 2 N ACTIVE N ACTIVE ADULT; DAY CENT DAY CENT PER 15 MINUTES DAY CARE S5100 [facility] 2 N ACTIVE N ACTIVE ADULT; DAY CENT DAY CENT PER 15 MINUTES OCCUPATIO 94571 [facility] NAL 2 N ACTIVE N ACTIVE THERAPY DAY CENT DAY CENT EVALUATIO N OCCUPATIO 07456 [facility] NAL 2 N ACTIVE N ACTIVE THERAPY DAY CENT DAY CENT EVALUATIO N DAY CARE S5100 [facility] 2 N ACTIVE N ACTIVE ADULT; DAY CENT DAY CENT PER 15 MINUTES DAY CARE S5100 [facility] 2 N ACTIVE N ACTIVE ADULT; DAY CENT DAY CENT PER 15 MINUTES DAY CARE S5100 [facility] 2 N ACTIVE N ACTIVE ADULT; DAY CENT DAY CENT PER 15 MINUTES OCCUPATIO 91276 [facility] NAL 2 N ACTIVE N ACTIVE THERAPY DAY CENT DAY CENT EVALUATIO N DAY CARE S5100 [facility] 2 N ACTIVE N ACTIVE ADULT; DAY CENT DAY CENT PER 15 MINUTES DAY CARE S5100 [facility] 2 N ACTIVE N ACTIVE ADULT; DAY CENT DAY CENT PER 15 MINUTES DAY CARE S5100 [facility] 2 N ACTIVE N ACTIVE ADULT; DAY CENT DAY CENT PER 15 MINUTES OCCUPATIO 20644 [facility] NAL 2 N ACTIVE N ACTIVE THERAPY DAY CENT DAY CENT EVALUATIO N OCCUPATIO 82226 [facility] NAL 2 N ACTIVE N ACTIVE THERAPY DAY CENT DAY CENT EVALUATIO N PRTBLE E0431 JANAE CARDOSO GASEOUS 2 HOME HOME O2 SYS MEDICAL MEDICAL RENT; EQUIPME EQUIPME FLWMTR HUMIDFR&M ASK DAY CARE S5100 [facility] 2 N ACTIVE N ACTIVE ADULT; DAY CENT DAY CENT PER 15 MINUTES O2 CONC 1 E1390 JANAE CARDOSO DEL PORT 2 HOME HOME 85%/>02 MEDICAL MEDICAL CONC AT EQUIPME EQUIPME PRSC FLW RATE DAY CARE S5100 [facility] 2 N ACTIVE N ACTIVE ADULT; DAY CENT DAY CENT PER 15 MINUTES DAY CARE S5100 [facility] 2 N ACTIVE N ACTIVE ADULT; DAY CENT DAY CENT PER [address] [facility] 2 GERALDO II QUENTIN STICK/TAB LET RGNT PHYSICIAN NON-AUTO S W/O MICRSCP DAY CARE S5100 [facility] 2 N ACTIVE N ACTIVE ADULT; DAY CENT DAY CENT PER 15 MINUTES DAY CARE S5100 [facility] 2 N ACTIVE N ACTIVE ADULT; DAY CENT DAY CENT PER 15 MINUTES DAY CARE S5100 [facility] 2 N ACTIVE N ACTIVE ADULT; DAY CENT DAY CENT PER 15 MINUTES OCCUPATIO [id number] [facility] 2 N ACTIVE N ACTIVE THERAPY DAY CENT DAY CENT EVALUATIO N OCCUPATIO [id number] [facility] 2 N ACTIVE N ACTIVE THERAPY DAY CENT DAY CENT EVALUATIO N DAY CARE S5100 [facility] 2 N ACTIVE N ACTIVE ADULT; DAY CENT DAY CENT PER 15 MINUTES DAY CARE S5100 [facility] 2 N ACTIVE N ACTIVE ADULT; DAY CENT DAY CENT PER 15 MINUTES DAY CARE S5100 [facility] 2 N ACTIVE N ACTIVE ADULT; DAY CENT DAY CENT PER 15 MINUTES OCCUPATIO [id number] [facility] 2 N ACTIVE N ACTIVE THERAPY DAY CENT DAY CENT EVALUATIO N OCCUPATIO [id number] [facility] 2 N ACTIVE N ACTIVE THERAPY DAY CENT DAY CENT EVALUATIO N DAY CARE S5100 [facility] 2 N ACTIVE N ACTIVE ADULT; DAY CENT DAY CENT PER 15 MINUTES DAY CARE S5100 [facility] 2 N ACTIVE N ACTIVE ADULT; DAY CENT DAY CENT PER 15 MINUTES DAY CARE S5100 [facility] 2 N ACTIVE N ACTIVE ADULT; DAY CENT DAY CENT PER 15 MINUTES DAY CARE S5100 [facility] 2 N ACTIVE N ACTIVE ADULT; DAY CENT DAY CENT PER 15 MINUTES DAY CARE S5100 [facility] 2 N ACTIVE N ACTIVE ADULT; DAY CENT DAY CENT PER 15 MINUTES OCCUPATIO [id number] [facility] 2 N ACTIVE N ACTIVE THERAPY DAY CENT DAY CENT EVALUATIO N OCCUPATIO [id number] [facility] 2 N ACTIVE N ACTIVE THERAPY DAY CENT DAY CENT EVALUATIO N DAY CARE S5100 [facility] 2 N ACTIVE N ACTIVE ADULT; DAY CENT DAY CENT PER 15 MINUTES DAY CARE S5100 [facility] 2 N ACTIVE N ACTIVE ADULT; DAY CENT DAY CENT PER 15 MINUTES PRTBLE [id number] JANAE CARDOSO GASEOUS 2 HOME HOME O2 SYS MEDICAL MEDICAL RENT; EQUIPME EQUIPME FLWMTR HUMIDFR&M ASK O2 CONC 1 [id number] JANAE CARDOSO DEL PORT 2 HOME HOME 85%/>02 MEDICAL MEDICAL CONC AT EQUIPME EQUIPME PRSC FLW RATE DAY CARE S5100 [facility] 2 N ACTIVE N ACTIVE ADULT; DAY CENT DAY CENT PER 15 MINUTES OCCUPATIO [id number] [facility] 2 N ACTIVE N ACTIVE THERAPY DAY CENT DAY CENT EVALUATIO N OCCUPATIO [id number] [facility] 2 N ACTIVE N ACTIVE THERAPY DAY CENT DAY CENT EVALUATIO N DAY CARE S5100 [facility] 2 N ACTIVE N ACTIVE ADULT; DAY CENT DAY CENT PER 15 MINUTES DAY CARE S5100 [facility] 2 N ACTIVE N ACTIVE ADULT; DAY CENT DAY CENT PER 15 MINUTES DAY CARE S5100 [facility] 2 N ACTIVE N ACTIVE ADULT; DAY CENT DAY CENT PER 15 MINUTES DAY CARE S5100 [facility] 2 N ACTIVE N ACTIVE ADULT; DAY CENT DAY CENT PER 15 MINUTES DAY CARE S5100 [facility] 2 N ACTIVE N ACTIVE ADULT; DAY CENT DAY CENT PER 15 MINUTES OCCUPATIO [id number] [facility] NAL 2 N ACTIVE N ACTIVE THERAPY DAY CENT DAY CENT EVALUATIO N OCCUPATIO [id number] [facility] NAL 2 N ACTIVE N ACTIVE THERAPY DAY CENT DAY CENT EVALUATIO N DAY CARE S5100 [facility] 2 N ACTIVE N ACTIVE ADULT; DAY CENT DAY CENT PER 15 MINUTES DAY CARE S5100 [facility] 2 N ACTIVE N ACTIVE ADULT; DAY CENT DAY CENT PER 15 MINUTES DAY CARE S5100 [facility] 2 N ACTIVE N ACTIVE ADULT; DAY CENT DAY CENT PER 15 MINUTES DAY CARE S5100 [facility] 2 N ACTIVE N ACTIVE ADULT; DAY CENT DAY CENT PER 15 MINUTES DAY CARE S5100 [facility] 2 N ACTIVE N ACTIVE ADULT; DAY CENT DAY CENT PER 15 MINUTES DAY CARE S5100 [facility] 2 N ACTIVE N ACTIVE ADULT; DAY CENT DAY CENT PER 15 MINUTES DAY CARE S5100 [facility] 2 N ACTIVE N ACTIVE ADULT; DAY CENT DAY CENT PER 15 MINUTES DAY CARE S5100 [facility] 2 N ACTIVE N ACTIVE ADULT; DAY CENT DAY CENT PER 15 MINUTES DAY CARE S5100 [facility] 2 N ACTIVE N ACTIVE ADULT; DAY CENT DAY CENT PER 15 MINUTES OCCUPATIO 03251 [facility] 2 N ACTIVE N ACTIVE THERAPY DAY CENT DAY CENT EVALUATIO N DAY CARE S5100 [facility] 2 N ACTIVE N ACTIVE ADULT; DAY CENT DAY CENT PER 15 MINUTES PRTBLE E0431 JANAE CARDOSO GASEOUS 2 HOME HOME O2 SYS MEDICAL MEDICAL RENT; EQUIPME EQUIPME FLWMTR HUMIDFR&M ASK O2 CONC 1 E1390 [place]E CARDOSO [place] 2 HOME HOME 85%/>02 MEDICAL MEDICAL CONC AT EQUIPME EQUIPME PRSC FLW RATE DAY CARE S5100 [facility] 2 N ACTIVE N ACTIVE ADULT; DAY CENT DAY CENT PER 15 MINUTES DAY CARE S5100 [facility] 2 N ACTIVE N ACTIVE ADULT; DAY CENT DAY CENT PER 15 MINUTES DAY CARE S5100 [facility] 2 N ACTIVE N ACTIVE ADULT; DAY CENT DAY CENT PER 15 MINUTES DAY CARE S5100 [facility] 2 N ACTIVE N ACTIVE ADULT; DAY CENT DAY CENT PER 15 MINUTES DAY CARE S5100 [facility] 2 N ACTIVE N ACTIVE ADULT; DAY CENT DAY CENT PER 15 MINUTES DAY CARE S5100 [facility] 2 N ACTIVE N ACTIVE ADULT; DAY CENT DAY CENT PER 15 MINUTES DAY CARE S5100 [facility] 2 N ACTIVE N ACTIVE ADULT; DAY CENT DAY CENT PER 15 MINUTES DAY CARE S5100 [facility] 2 N ACTIVE N ACTIVE ADULT; DAY CENT DAY CENT PER 15 MINUTES DAY CARE S5100 [facility] 2 N ACTIVE N ACTIVE ADULT; DAY CENT DAY CENT PER 15 MINUTES DAY CARE S5100 [facility] 2 N ACTIVE N ACTIVE ADULT; DAY CENT DAY CENT PER 15 MINUTES DAY CARE S5100 [facility] 2 N ACTIVE N ACTIVE ADULT; DAY CENT DAY CENT PER 15 MINUTES DAY CARE S5100 [facility] 2 N ACTIVE N ACTIVE ADULT; DAY CENT DAY CENT PER 15 MINUTES DAY CARE S5100 [facility] 2 N ACTIVE N ACTIVE ADULT; DAY CENT DAY CENT PER 15 MINUTES DAY CARE S5100 [facility] 2 N ACTIVE N ACTIVE ADULT; DAY CENT DAY CENT PER 15 MINUTES DAY CARE S5100 [facility] 2 N ACTIVE N ACTIVE ADULT; DAY CENT DAY CENT PER 15 MINUTES DAY CARE S5100 [facility] 2 N ACTIVE N ACTIVE ADULT; DAY CENT DAY CENT PER [address] SIVE 2 [facility] METABOLIC PANEL MEDICALCE MEDICALCE NTER NTER BLOOD [address] COUNT 2 [facility] COMPLETE AUTOMATED [place] [address] THYROID 2 [facility] STIMULATI NG MEDICALCE MEDICALCE HORMONE NTER NTER TSH DAY CARE S5100 [facility] 2 N ACTIVE N ACTIVE ADULT; DAY CENT DAY CENT PER 15 MINUTES DAY CARE S5100 [facility] 2 N ACTIVE N ACTIVE ADULT; DAY CENT DAY CENT PER 15 MINUTES DAY CARE S5100 [facility] 2 N ACTIVE N ACTIVE ADULT; DAY CENT DAY CENT PER 15 MINUTES PRTBLE E0431 JANAE CARDOSO GASEOUS 2 HOME HOME O2 SYS MEDICAL MEDICAL RENT; EQUIPME EQUIPME FLWMTR HUMIDFR&M ASK O2 CONC 1 E1390 JANAE CARDOSO [place] 2 HOME HOME 85%/>02 MEDICAL MEDICAL CONC AT EQUIPME EQUIPME PRSC FLW RATE DAY CARE S5100 [facility] 2 N ACTIVE N ACTIVE ADULT; DAY CENT DAY CENT PER 15 MINUTES DAY CARE S5100 [facility] 2 N ACTIVE N ACTIVE ADULT; DAY CENT DAY CENT PER 15 MINUTES DAY CARE S5100 [facility] 2 N ACTIVE N ACTIVE ADULT; DAY CENT DAY CENT PER 15 MINUTES DAY CARE S5100 [facility] 2 N ACTIVE N ACTIVE ADULT; DAY CENT DAY CENT PER 15 MINUTES DAY CARE S5100 [facility] 2 N ACTIVE N ACTIVE ADULT; DAY CENT DAY CENT PER 15 MINUTES DAY CARE S5100 [facility] 2 N ACTIVE N ACTIVE ADULT; DAY CENT DAY CENT PER 15 MINUTES DAY CARE S5100 [facility] 2 N ACTIVE N ACTIVE ADULT; DAY CENT DAY CENT PER 15 MINUTES DAY CARE S5100 [facility] 2 N ACTIVE N ACTIVE ADULT; DAY CENT DAY CENT PER 15 MINUTES DAY CARE S5100 [facility] 2 N ACTIVE N ACTIVE ADULT; DAY CENT DAY CENT PER 15 MINUTES DAY CARE S5100 [facility] 2 N ACTIVE N ACTIVE ADULT; DAY CENT DAY CENT PER 15 MINUTES DAY CARE S5100 [facility] 2 N ACTIVE N ACTIVE ADULT; DAY CENT DAY CENT PER 15 MINUTES DAY CARE S5100 [facility] 2 N ACTIVE N ACTIVE ADULT; DAY CENT DAY CENT PER 15 MINUTES DAY CARE S5100 [facility] 2 N ACTIVE N ACTIVE ADULT; DAY CENT DAY CENT PER 15 MINUTES DAY CARE S5100 [facility] 2 N ACTIVE N ACTIVE ADULT; DAY CENT DAY CENT PER 15 MINUTES DAY CARE S5100 [facility] 2 N ACTIVE N ACTIVE ADULT; DAY CENT DAY CENT PER 15 MINUTES DAY CARE S5100 [facility] 2 N ACTIVE N ACTIVE ADULT; DAY CENT DAY CENT PER 15 MINUTES PRTBLE E0431 JANAE CARDOSO GASEOUS 2 HOME HOME O2 SYS MEDICAL MEDICAL RENT; EQUIPME EQUIPME FLWMTR HUMIDFR&M ASK O2 CONC 1 E1390 JANAE CARDOSO [place] 2 HOME HOME 85%/>02 MEDICAL MEDICAL CONC AT EQUIPME EQUIPME PRSC FLW RATE DAY CARE S5100 [facility] 2 N ACTIVE N ACTIVE ADULT; DAY CENT DAY CENT PER 15 MINUTES DAY CARE S5100 [facility] 2 N ACTIVE N ACTIVE ADULT; DAY CENT DAY CENT PER 15 MINUTES DAY CARE S5100 [facility] 2 N ACTIVE N ACTIVE ADULT; DAY CENT DAY CENT PER 15 MINUTES DAY CARE S5100 [facility] 2 N ACTIVE N ACTIVE ADULT; DAY CENT DAY CENT PER 15 MINUTES DAY CARE S5100 [facility] 2 N ACTIVE N ACTIVE ADULT; DAY CENT DAY CENT PER 15 MINUTES DAY CARE S5100 [facility] 2 N ACTIVE N ACTIVE ADULT; DAY CENT DAY CENT PER 15 MINUTES DAY CARE S5100 [facility] 2 N ACTIVE N ACTIVE ADULT; DAY CENT DAY CENT PER 15 MINUTES DAY CARE S5100 [facility] 2 N ACTIVE N ACTIVE ADULT; DAY CENT DAY CENT PER 15 MINUTES DAY CARE S5100 [facility] 2 N ACTIVE N ACTIVE ADULT; DAY CENT DAY CENT PER 15 MINUTES DAY CARE S5100 [facility] 2 N ACTIVE N ACTIVE ADULT; DAY CENT DAY CENT PER 15 MINUTES COMPREHEN 91263 COMBINED COMBINED SIVE 2 PHYSICIAN PHYSICIAN METABOLIC S LA S LA PANEL LIPID 47917 COMBINED COMBINED PANEL 2 PHYSICIAN PHYSICIAN S [place] BLOOD 75039 COMBINED COMBINED COUNT 2 PHYSICIAN PHYSICIAN COMPLETE S LA S LA AUTO&[place] [address] COMBINED COMBINED THYROID 2 PHYSICIAN PHYSICIAN STIMULATI S LA S LA NG HORMONE TSH DAY CARE S5100 [facility] 2 N ACTIVE N ACTIVE ADULT; DAY CENT DAY CENT PER 15 MINUTES DAY CARE S5100 [facility] 2 N ACTIVE N ACTIVE ADULT; DAY CENT DAY CENT PER 15 MINUTES DAY CARE S5100 [facility] 2 N ACTIVE N ACTIVE ADULT; DAY CENT DAY CENT PER 15 MINUTES DAY CARE S5100 [facility] 2 N ACTIVE N ACTIVE ADULT; DAY CENT DAY CENT PER 15 MINUTES DAY CARE S5100 [facility] 2 N ACTIVE N ACTIVE ADULT; DAY CENT DAY CENT PER 15 MINUTES DAY CARE S5100 [facility] 2 N ACTIVE N ACTIVE ADULT; DAY CENT DAY CENT PER 15 MINUTES NONEMERGE A0100 [facility] 2 [facility] TRANSPORT ACTION ACTION ATION; TAXI NONEMERGE A[address] [facility] TRANSPORT ACTION ACTION ATION; TAXI DAY CARE S5100 [facility] 2 N ACTIVE N ACTIVE ADULT; DAY CENT DAY CENT PER 15 MINUTES PRTBLE E0431 JANAE CARDOSO GASEOUS 2 HOME HOME O2 SYS MEDICAL MEDICAL RENT; EQUIPME EQUIPME FLWMTR HUMIDFR&M ASK O2 CONC 1 E1390 JANAE CARDOSO [place] 2 HOME HOME 85%/>02 MEDICAL MEDICAL CONC AT EQUIPME EQUIPME PRSC FLW RATE DAY CARE S5100 [facility] 2 N ACTIVE N ACTIVE ADULT; DAY CENT DAY CENT PER 15 MINUTES DAY CARE S5100 [facility] 2 N ACTIVE N ACTIVE ADULT; DAY CENT DAY CENT PER 15 MINUTES DAY CARE S5100 [facility] 2 N ACTIVE N ACTIVE ADULT; DAY CENT DAY CENT PER 15 MINUTES DAY CARE S5100 [facility] 2 N ACTIVE N ACTIVE ADULT; DAY CENT DAY CENT PER 15 MINUTES NONEMERGE A[address] [facility] [address] [facility] TRANSPORT ACTION ACTION ATION; TAXI NONEMERGE A[address] [facility] [address] [facility] TRANSPORT ACTION ACTION ATION; TAXI DAY CARE S5100 [facility] 2 N ACTIVE N ACTIVE ADULT; DAY CENT DAY CENT PER 15 MINUTES DAY CARE S5100 [facility] 2 N ACTIVE N ACTIVE ADULT; DAY CENT DAY CENT PER 15 MINUTES DAY CARE S5100 [facility] 2 N ACTIVE N ACTIVE ADULT; DAY CENT DAY CENT PER 15 MINUTES DAY CARE S5100 [facility] 2 N ACTIVE N ACTIVE ADULT; DAY CENT DAY CENT PER 15 MINUTES DAY CARE S5100 [facility] 2 N ACTIVE N ACTIVE ADULT; DAY CENT DAY CENT PER 15 MINUTES NONEMERGE A0100 [facility] TRANSPORT ACTION ACTION ATION; TAXI NONEMERGE A0100 [facility] COMM[facility]ITY COMM[facility]ITY TRANSPORT ACTION ACTION ATION; TAXI DAY CARE S5100 [facility] 2 N ACTIVE N ACTIVE ADULT; DAY CENT DAY CENT PER 15 MINUTES DAY CARE S5100 [facility] 2 N ACTIVE N ACTIVE ADULT; DAY CENT DAY CENT PER 15 MINUTES DAY CARE S5100 [facility] 2 N ACTIVE N ACTIVE ADULT; DAY CENT DAY CENT PER 15 MINUTES DAY CARE S5100 [facility] 2 N ACTIVE N ACTIVE ADULT; DAY CENT DAY CENT PER 15 MINUTES DAY CARE S5100 [facility] 2 N ACTIVE N ACTIVE ADULT; DAY CENT DAY CENT PER 15 MINUTES DAY CARE S5100 [facility] 2 N ACTIVE N ACTIVE ADULT; DAY CENT DAY CENT PER 15 MINUTES NONEMERGE A0100 [facility] TRANSPORT ACTION ACTION ATION; TAXI NONEMERGE A0100 [facility] COMM[facility]ITY COMM[facility]ITY TRANSPORT ACTION ACTION ATION; TAXI DAY CARE S5100 [facility] 2 N ACTIVE N ACTIVE ADULT; DAY CENT DAY CENT PER 15 MINUTES DAY CARE S5100 [facility] 2 N ACTIVE N ACTIVE ADULT; DAY CENT DAY CENT PER 15 MINUTES DAY CARE S5100 [facility] 2 N ACTIVE N ACTIVE ADULT; DAY CENT DAY CENT PER 15 MINUTES DAY CARE S5100 [facility] 2 N ACTIVE N ACTIVE ADULT; DAY CENT DAY CENT PER 15 MINUTES DAY CARE S5100 [facility] 2 N ACTIVE N ACTIVE ADULT; DAY CENT DAY CENT PER 15 MINUTES PRTBLE E0431 JANAE CARDOSO GASEOUS 2 HOME HOME O2 SYS MEDICAL MEDICAL RENT; EQUIPME EQUIPME FLWMTR HUMIDFR&M ASK O2 CONC 1 E1390 JANAE CARDOSO [place] 2 HOME HOME 85%/>02 MEDICAL MEDICAL CONC AT EQUIPME EQUIPME PRSC FLW RATE TECHNETIU A9502 [facility] TC-99M 2 GERALDO GERALDO TETROFOSM ADDIE ADDIE IN DX PER STUDY DOSE MYOCARDIA 12646 [facility] L SPECT 2 GERALDO ER GUILHERME MULTIPLE STUDIES PHYSICIAN S CV STRS 38204 [facility]. TST 2 GERALDO GERALDO XERS&/OR ADDIE ADDIE RX CONT ECG TRCG ONLY CV STRS 34546 [facility] TST 2 GERALDO ER GUILHERME XERS&/OR RX CONT PHYSICIAN ECG W/O S I&R ECHO 88691 [facility] TTHRC R-T 2 GERALDO ER GUILHERME 2D W/WOM-MOD PHYSICIAN E COMPL S SPEC&COLR D CV STRS 66193 [facility] TST 2 GERALDO ER GUILHERME XERS&/OR RX CONT PHYSICIAN ECG I&R S ONLY DAY CARE S5100 [facility] 2 N ACTIVE N ACTIVE ADULT; DAY CENT DAY CENT PER 15 MINUTES DAY CARE S5100 [facility] 2 N ACTIVE N ACTIVE ADULT; DAY CENT DAY CENT PER 15 MINUTES DAY CARE S5100 [facility] 2 N ACTIVE N ACTIVE ADULT; DAY CENT DAY CENT PER 15 MINUTES DAY CARE S5100 [facility] 2 N ACTIVE N ACTIVE ADULT; DAY CENT DAY CENT PER 15 MINUTES DAY CARE S5100 [facility] 2 N ACTIVE N ACTIVE ADULT; DAY CENT DAY CENT PER 15 MINUTES DAY CARE S5100 [facility] 2 N ACTIVE N ACTIVE ADULT; DAY CENT DAY CENT PER 15 MINUTES DAY CARE S5100 [facility] 1 N ACTIVE N ACTIVE ADULT; DAY CENT DAY CENT PER 15 MINUTES NONEMERGE A0100 [facility] NCY 1 COMMUNITY TRANSPORT ACTION ATION; TAXI NONEMERGE A0100 [facility] NCY 1 COMMUNITY TRANSPORT ACTION ATION; TAXI DAY CARE S5100 [facility] 1 N ACTIVE N ACTIVE ADULT; DAY CENT DAY CENT PER 15 MINUTES DAY CARE S5100 [facility] 1 N ACTIVE N ACTIVE ADULT; DAY CENT DAY CENT PER 15 MINUTES NONEMERGE A0100 [facility] 1 COMMUNITY TRANSPORT ACTION ATION; TAXI O2 CONC 1 E1390 JANAE CARDOSO DEL PORT 1 HOME HOME 85%/>02 MEDICAL MEDICAL CONC AT EQUIPME EQUIPME PRSC FLW RATE PRTBLE E0431 JANAE JANAE GASEOUS 1 HOME HOME O2 SYS MEDICAL MEDICAL RENT; EQUIPME EQUIPME FLWMTR HUMIDFR&M ASK SBSQ 88178 [facility] CARE/DAY 35 PHYSICIAN MINUTES S SBSQ 18122 [place] [address] [facility] CARE/DAY 25 CONSULTAN MINUTES SBSQ 93248 [facility] CARE/DAY 35 PHYSICIAN MINUTES S SBSQ [id number] CARE/DAY [address] [place] [address] RADIOLOGY ONUR ABDOMEN & 1 MAR PELVIS ASSOCIATE W/O S PSC CONTRAST MATERIAL SBSQ 39880 [facility] [address] [facility] CARE/DAY 25 CONSULTAN MINUTES SBSQ 28084 [facility] [address] [facility] CARE/DAY 25 CONSULTAN MINUTES SBSQ 65670 [facility] CARE/DAY 35 PHYSICIAN MINUTES S RADIOLOGI 49137 RADIOLOGY BRANDSER C EXAM 1 GLORIA CHEST 2 ASSOCIATE VIEWS S PSC FRONTAL&L ATERAL SBSQ 86587 [facility] CARE/DAY [address] [place] [address] RADIOLOGY YOUNG VAN ABDOMINAL 1 REAL ASSOCIATE TIME S PSC W/IMAGE LIMITED SBSQ 81423 [facility] [address] [facility] CARE/DAY 25 CONSULTAN MINUTES SBSQ 99214 [facility] [address] [facility] CARE/DAY 25 CONSULTAN MINUTES ECG 98212 [facility] CHR ROUTINE 1 LAUREL BLOOMERY ECG MED CTR W/LEAST 12 LDS I&R ONLY SBSQ 70235 [facility] 1 GERALDO ER GUILHERME CARE/DAY 35 PHYSICIAN MINUTES S INITIAL 25129 [facility] 1 S DISEASE SUSI CARE/DAY 70 CONSULTAN MINUTES INITIAL 45683 [facility] 1 GERALDO ER GUILHERME CARE/DAY 70 PHYSICIAN MINUTES S PROTHROMB [address] IN TIME 1 GERALDOMIRANDA SERNABETH ADDIE ADDIE ECG [address] ROUTINE 1 GERALDO SERNABETH ECG ADDIE ADDIE W/LEAST 12 LDS TRCG ONLY W/O I&R GROUND A0425 RURAL/MET RURAL/MET MILEAGE 1 RO RO PER AMBULANCE AMBULANCE STATUTE MILE AMB A0426 RURAL/MET RURAL/MET SERVICE 1 RO RO ALS AMBULANCE AMBULANCE NONEMERGE [facility] TRANSPORT L[place] [address] INFUSION 1 GERALDO CHOW THERAPY/P ADDIE ADDIE ROPHYLAXI S /DX 1ST TO [address] IC 1 GERALDO CASSIDYTH INJECTION ADDIE ADDIE [place] [address] TROPONIN 1 GERALDO CHOW QUANTITAT ADDIE ADDIE JOSE ALFREDO BLOOD [address] COUNT 1 GERALDO CASSIDYTH COMPLETE ADDIE ADDIE AUTO&AUTO DIFRNTL WBC COLLECTIO [address] N VENOUS 1 GERALDO GERALDO BLOOD ADDIE ADDIE VENIPUNCT URE RADIOLOGI 11503 RADIOLOGY BRANDSER C EXAM 1 GLORIA CHEST 2 ASSOCIATE VIEWS S PSC FRONTAL&L ATERAL BASIC [address] METABOLIC 1 GERALDOMIRANDA SERNABETH PANEL ADDIE ADDIE CALCIUM TOTAL RADIOLOGI 83847 RADIOLOGY BRANDSER C 1 GLORIA EXAMINATI ASSOCIATE ON CHEST S OF NOTH [place] FRONTAL NONEMERGE A0100 [facility]I-[facility] NCY 1 COMMUNITY TRANSPORT ACTION ATION; TAXI DAY CARE S5100 [facility] 1 N ACTIVE N ACTIVE ADULT; DAY CENT DAY CENT PER 15 MINUTES DAY CARE S5100 [facility] 1 N ACTIVE N ACTIVE ADULT; DAY CENT DAY CENT PER 15 MINUTES NONEMERGE A0100 [facility] NCY 1 COMMUNITY TRANSPORT ACTION ATION; TAXI OBSERVATI 54345 SARAH TODD ON CARE 1 [facility] LAR DISCHARGE MEDICALCE NTER MANAGEMEN T COMPREHEN 62668 NEW NEW SIVE 1 [facility] METABOLIC MED CTR MED CTR PANEL CREATINE 80852 NEW NEW KINASE MB 1 [facility] FRACTION MED CTR MED CTR ONLY BLOOD 68717 NEW NEW COUNT 1 [facility] COMPLETE MED CTR MED CTR AUTO&AUTO DIFRNTL WBC COLLECTIO 97047 NEW NEW N VENOUS 1 [facility] BLOOD [place] [address] NEW NEW TROPONIN 1 [facility] QUANTITAT [place] [address] NEW NEW TROPONIN 1 H[facility] QUANTITAT MED CTR MED CTR JOSE ALFREDO COLLECTIO 94067 NEW NEW N VENOUS 1 [facility] BLOOD MED CTR MED CTR VENIPUNCT URE BLOOD 49328 NEW NEW COUNT 1 [facility] COMPLETE MED CTR MED CTR AUTO&AUTO DIFRNTL WBC THERAPEUT 12094 NEW NEW IC 1 [facility] INJECTION MED CTR [place] [address] NEW NEW INFUSION 1 [facility] THERAPY/P MED CTR MED CTR ROPHYLAXI S /DX 1ST TO 1 HR INITIAL 21283 SARAH TODD OBSERVATI 1 [facility] LAR ON MEDICALCE CARE/DAY NTER 50 MINUTES GROUND A0425 [facility] 1 [facility] PER LIFE LIFE STATUTE SQUAD SQUAD MILE ECG 26327 NEW NEW ROUTINE 1 [facility] ECG MED CTR MED CTR W/LEAST 12 LDS TRCG ONLY W/O I&R PROTHROMB 09378 NEW NEW IN TIME 1 [facility] MED CTR MED CTR FIBRIN 57514 NEW NEW DGRADJ 1 [facility] PRODUCTS MED CTR MED CTR D-DIMER QUAL/SEMI KRYSTYNA CREATINE 22365 NEW NEW KINASE MB 1 [facility] FRACTION MED CTR MED CTR ONLY CT THORAX 57197 NEW NEW W/O 1 [facility] CONTRAST MED CTR MED CTR MATERIAL CREATINE 84964 NEW NEW KINASE 1 [facility] TOTAL MED CTR MED CTR HOSPITAL [id number] NEW NEW OBSERVATI 1 [facility] ON [place] [address] NEW NEW INFUSION 1 [facility] THERAPY MED CTR MED CTR PROPHYLAX IS/DX EA HOUR RADIOLOGI 34566 NEW NEW C 1 [facility] EXAMINATI MED CTR MED CTR ON CHEST [place] FRONTAL AMB A0422 TRACY MOLINA OXYGEN&O[address] [place] [address] SUPPLIES LIFE LIFE LIFE SQUAD SQUAD SUSTAININ G SITUATION BASIC 16971 NEW NEW METABOLIC 1 [facility] PANEL MED CTR MED CTR CALCIUM TOTAL BLOOD 83561 NEW NEW COUNT 1 [facility] SMEAR MED CTR MED CTR MCRSCP W/MNL DIFRNTL WBC COUNT AMB A0427 TRACY MOLINA SERVICE [address] [place] [address] ALS LIFE LIFE EMERGENCY SQUAD SQUAD TRANSPORT LEVEL [address] [facility] 1 COMMUNITY TRANSPORT ACTION ATION; TAXI DAY CARE S5100 [facility] 1 N ACTIVE N ACTIVE ADULT; DAY CENT DAY CENT PER 15 MINUTES DAY CARE S5100 [facility] 1 N ACTIVE N ACTIVE ADULT; DAY CENT DAY CENT PER [address] [facility] 1 COMMUNITY TRANSPORT ACTION ATION; TAXI NONEMERGE A0100 [facility] 1 COMMUNITY TRANSPORT ACTION ATION; TAXI PROTHROMB 00911 COMBINED COMBINED IN TIME 1 PHYSICIAN PHYSICIAN S LA S LA NONEMERGE A0100 [facility] 1 COMMUNITY TRANSPORT ACTION ATION; TAXI O2 CONC 1 E1390 [facility] [place] 1 HOME HOME 85%/>02 MEDICAL MEDICAL CONC AT EQUIPME EQUIPME PRSC FLW RATE PRTBLE E0431 JANAE CARDOSO GASEOUS 1 HOME HOME O2 SYS MEDICAL MEDICAL RENT; EQUIPME EQUIPME FLWMTR HUMIDFR&M ASK DAY CARE S5100 [facility] 1 N ACTIVE N ACTIVE ADULT; DAY CENT DAY CENT PER 15 MINUTES NONEMERGE A0100 [facility] 1 COMMUNITY TRANSPORT ACTION ATION; TAXI NONEMERGE A0100 [facility] 1 COMMUNITY TRANSPORT ACTION ATION; TAXI DAY CARE S5100 [facility] 1 N ACTIVE N ACTIVE ADULT; DAY CENT DAY CENT PER 15 MINUTES DAY CARE S5100 [facility] 1 N ACTIVE N ACTIVE ADULT; DAY CENT DAY CENT PER 15 MINUTES NONEMERGE A0100 [facility] 1 COMMUNITY TRANSPORT ACTION ATION; TAXI NONEMERGE A0100 [facility] 1 COMMUNITY TRANSPORT ACTION ATION; TAXI DAY CARE S5100 [facility] 1 N ACTIVE N ACTIVE ADULT; DAY CENT DAY CENT PER 15 MINUTES DAY CARE S5100 [facility] 1 N ACTIVE N ACTIVE ADULT; DAY CENT DAY CENT PER 15 MINUTES NONEMERGE A0100 [facility] 1 COMMUNITY TRANSPORT ACTION ATION; TAXI NONEMERGE A0100 [facility] 1 COMMUNITY TRANSPORT ACTION ATION; TAXI DAY CARE S5100 [facility] 1 N ACTIVE N ACTIVE ADULT; DAY CENT DAY CENT PER 15 MINUTES DAY CARE S5100 [facility] 1 N ACTIVE N ACTIVE ADULT; DAY CENT DAY CENT PER 15 MINUTES NONEMERGE A0100 [facility] 1 COMMUNITY TRANSPORT ACTION ATION; TAXI NONEMERGE A0100 [facility] 1 COMMUNITY TRANSPORT ACTION ATION; TAXI DAY CARE S5100 [facility] 1 N ACTIVE N ACTIVE ADULT; DAY CENT DAY CENT PER 15 MINUTES PRTBLE E0431 [facility] C[facility]O GASE[facility] 1 HOME HOME O2 SYS MEDICAL MEDICAL RENT; EQUIPME EQUIPME FLWMTR HUMIDFR&M ASK O2 CONC 1 E1390 [facility] [place] 1 HOME HOME 85%/>02 MEDICAL MEDICAL CONC AT EQUIPME EQUIPME PRSC FLW RATE NONEMERGE A0100 [facility] 1 COMMUNITY TRANSPORT ACTION ATION; TAXI COLLECTIO 59374 COMBINED COMBINED N VENOUS 1 PHYSICIAN PHYSICIAN BLOOD Alfredo DIANE LA VENIPUNCT URE PROTHROMB 43753 COMBINED COMBINED IN TIME 1 PHYSICIAN PHYSICIAN Alfredo [place] DAY CARE S5100 [facility] 1 N ACTIVE N ACTIVE ADULT; DAY CENT DAY CENT PER 15 MINUTES DAY CARE S5100 [facility] 1 N ACTIVE N ACTIVE ADULT; DAY CENT DAY CENT PER 15 MINUTES NONEMERGE A0100 [facility] 1 COMMUNITY TRANSPORT ACTION ATION; TAXI NONEMERGE A0100 [facility] 1 COMMUNITY TRANSPORT ACTION ATION; TAXI DAY CARE S5100 [facility] 1 N ACTIVE N ACTIVE ADULT; DAY CENT DAY CENT PER 15 MINUTES PROTHROMB 53122 COMBINED COMBINED IN TIME 1 PHYSICIAN PHYSICIAN Alfredo [place] DAY CARE S5100 [facility] 1 N ACTIVE N ACTIVE ADULT; DAY CENT DAY CENT PER 15 MINUTES NONEMERGE A0100 [facility] 1 COMMUNITY TRANSPORT ACTION ATION; TAXI NONEMERGE A0100 [facility] 1 COMMUNITY TRANSPORT ACTION ATION; [facility] S5100 [facility] 1 N ACTIVE N ACTIVE ADULT; DAY CENT DAY CENT PER 15 MINUTES DAY CARE S5100 [facility] 1 N ACTIVE N ACTIVE ADULT; DAY CENT DAY CENT PER 15 MINUTES ADMINISTR G0008 ASHISH HINOJOSA ATION OF [address] [place] [address] [facility] CENTER VACCINE NONEMERGE A0100 [facility] 1 COMMUNITY TRANSPORT ACTION ATION; TAXI INFLUENZA Q2038 ASHISH ASHISH VACC 1 [facility] SPLIT [facility] VIRUS 3 CENTER CENTER YRS & > IM FLUZONE NONEMERGE A0100 [facility] 1 COMMUNITY TRANSPORT ACTION ATION; [facility] DAY [facility]ARE S5100 [facility] 1 N ACTIVE N ACTIVE ADULT; DAY CENT DAY CENT PER 15 MINUTES DAY CARE S5100 [facility] 1 N ACTIVE N ACTIVE ADULT; DAY CENT DAY CENT PER 15 MINUTES NONEMERGE A0100 [facility] 1 COMMUNITY TRANSPORT ACTION ATION; TAXI NONEMERGE A0100 [facility] 1 COMMUNITY TRANSPORT ACTION ATION; [facility] DAY CARE S5100 [facility] 1 N ACTIVE N ACTIVE ADULT; DAY CENT DAY CENT PER 15 MINUTES DAY CARE S5100 [facility] 1 N ACTIVE N ACTIVE ADULT; DAY CENT DAY CENT PER 15 MINUTES NONEMERGE A0100 [facility] 1 COMMUNITY TRANSPORT ACTION ATION; TAXI NONEMERGE A0100 [facility] IN[facility] 1 COMMUNITY TRANSPORT ACTION ATION; [facility] DAY CARE S5100 [facility] 1 N ACTIVE N ACTIVE ADULT; DAY CENT DAY CENT PER 15 MINUTES PRTBLE [id number] JANAE CARDOSO GASEOUS 1 HOME HOME O2 SYS MEDICAL MEDICAL RENT; EQUIPME EQUIPME FLWMTR HUMIDFR&M ASK O2 CONC 1 [id number] JANAE CARDOSO DEL PORT 1 HOME HOME 85%/>02 MEDICAL MEDICAL CONC AT EQUIPME EQUIPME PRSC FLW RATE NONEMERGE A0100 [facility] 1 COMMUNITY TRANSPORT ACTION ATION; TAXI DEBRIDEME [id number] [facility] REKHA NT NAIL 1 FOOT & ANY ANKLE CE METHOD 1-5 DAY CARE S5100 [facility] 1 N ACTIVE N ACTIVE ADULT; DAY CENT DAY CENT PER [address] [place] ROUTINE 1 [facility] BLOOMERY ECG W/LEAST PHYSICIAN 12 LDS S I&R ONLY NATRIURET [id number] IC 1 [facility] B[facility] GERALDO PEPTIDE ADDIE ADDIE RADIOLOGI [address] C EXAM 1 GERALDO GERALDO CHEST 2 ADDIE ADDIE VIEWS FRONTAL&L ATERAL COMPREHEN [address] SIVE 1 [facility] METABOLIC ADDIE ADDIE PANEL COLLECTIO [address] N VENOUS 1 [facility] BLOOD ADDIE ADDIE VENIPUNCT URE BLOOD [address] COUNT 1 [facility] COMPLETE ADDIE ADDIE AUTO&[place] [address] TROPONIN 1 [facility] B[facility]OM[facility] GERALDO QUANTITAT ADDIE ADDIE JOSE ALFREDO PRESSURIZ [address] ED/NONPRE 1 GERALDO GERALDO SSURIZED ADDIE ADDIE INHALATIO N TREATMENT PROTHROMB [address] IN TIME 1 [facility] ADDIE ADDIE DEMO&/JOO [address] L OF PT 1 GERALDO GERALDO UTILIZ ADDIE ADDIE AERSL GEN/NEB/I NHLR/IP THER [address] PROPH/DX 1 GERALDO GERALDO NJX IV ADDIE ADDIE PUSH SINGLE/1S T SBST/DRUG ECG [address] ROUTINE 1 [facility] ADDIE ADDIE W/LEAST 12 LDS TRCG ONLY W/O I&R THROMBOPL [address] ASTIN 1 [facility] TIME ADDIE ADDIE PARTIAL PLASMA/WH OLE BLOOD NONEMERGE A0100 [facility] 1 COMMUNITY TRANSPORT ACTION ATION; [facility] DAY CARE S5100 [facility] 1 N ACTIVE N ACTIVE ADULT; DAY CENT DAY CENT PER 15 MINUTES DAY CARE S5100 [facility] 1 N ACTIVE N ACTIVE ADULT; DAY CENT DAY CENT PER 15 MINUTES NONEMERGE A0100 [facility] 1 COMMUNITY TRANSPORT ACTION ATION; TAXI NONEMERGE A0100 [facility] 1 COMMUNITY TRANSPORT ACTION ATION; TAXI NONEMERGE A0100 [facility] 1 COMMUNITY TRANSPORT ACTION ATION; TAXI NONEMERGE A0100 [facility] 1 COMMUNITY TRANSPORT ACTION ATION; TAXI NONEMERGE A0100 [facility] 1 COMMUNITY TRANSPORT ACTION ATION; TAXI NONEMERGE A0100 [facility] 1 COMMUNITY TRANSPORT ACTION ATION; [facility] DAY CARE S5100 [facility] 1 N ACTIVE N ACTIVE ADULT; DAY CENT DAY CENT PER 15 MINUTES DAY CARE S5100 [facility] 1 N ACTIVE N ACTIVE ADULT; DAY CENT DAY CENT PER 15 MINUTES NONEMERGE A0100 [facility] 1 COMMUNITY TRANSPORT ACTION ATION; TAXI NONEMERGE A0100 [facility] 1 COMMUNITY TRANSPORT ACTION ATION; [facility] DAY CARE S5100 [facility] 1 N ACTIVE N ACTIVE ADULT; DAY CENT DAY CENT PER 15 MINUTES DAY CARE S5100 [facility] 1 N ACTIVE N ACTIVE ADULT; DAY CENT DAY CENT PER 15 MINUTES PROTHROMB 02048 COMBINED COMBINED IN TIME 1 PHYSICIAN PHYSICIAN S LA S LA NONEMERGE A0100 [facility] 1 COMMUNITY TRANSPORT ACTION ATION; TAXI NONEMERGE A0100 [facility] 1 COMMUNITY TRANSPORT ACTION ATION; [facility] DAY CARE S5100 [facility] 1 N ACTIVE N ACTIVE ADULT; DAY CENT DAY CENT PER 15 MINUTES DAY CARE S5100 [facility] 1 N ACTIVE N ACTIVE ADULT; DAY CENT DAY CENT PER 15 MINUTES NONEMERGE A0100 [facility] 1 COMMUNITY TRANSPORT ACTION ATION; [facility]AXI O2 CONC 1 E1390 [facility]NAE CARDOSO DEL [place] 1 HOME HOME 85%/>02 MEDICAL MEDICAL CONC AT EQUIPME EQUIPME PRSC FLW RATE PRTBLE E0431 JANAE JANAE GASEOUS 1 HOME HOME O2 SYS MEDICAL MEDICAL RENT; EQUIPME EQUIPME FLWMTR HUMIDFR&M ASK BLOOD [address] COUNT 1 GERALDO GERALDO COMPLETE AUTOMATED MEDICALCE MEDICALCE NTER NTER NONINVASI [address] VE 1 GERALDO GERALDO EAR/PULSE OXIMETRY MEDICALCE MEDICALCE MULTIPLE NTER NTER DETER PROTHROMB [address] IN TIME 1 GERALDO GERALDO MEDICALCE MEDICALCE NTER NTER INJECTION J1644 ST ST HEPARIN 1 GERALDO GERALDO SODIUM PER 1000 MEDICALCE MEDICALCE UNITS NTER NTER HEPARIN [address] [place] 1 GERALDO EGRALDO MEDICALCE MEDICALCE NTER NTER SBSQ 40173 [facility] 1 YIN KOVACS CARE/DAY GASTROENT 25 EROLOGYAS MINUTES INJECTION J1644 ST ST HEPARIN 1 GERALDO GERALDO SODIUM PER 1000 MEDICALCE MEDICALCE UNITS NTER NTER HEPARIN [address] [place] 1 GERALDO GERALDO MEDICALCE MEDICALCE NTER NTER BASIC [address] METABOLIC 1 GERALDO GERALDO PANEL CALCIUM MEDICALCE MEDICALCE TOTAL NTER NTER PROTHROMB [address] IN TIME 1 GERALDO GERALDO MEDICALCE MEDICALCE NTER NTER NONINVASI 84571 [address] ST VE 1 GERALDO GERALDO EAR/PULSE OXIMETRY MEDICALCE MEDICALCE MULTIPLE NTER NTER DETER BLOOD [address] COUNT 1 GERALDO GERALDO COMPLETE AUTOMATED MEDICALCE MEDICALCE NTER NTER RADEX 56569 RADIOLOGY ROEBKER SHOULDER 1 JAM COMPLETE ASSOCIATE MINIMUM 2 S PSC VIEWS EGD 16441 [facility] TRANSORAL 1 YIN KOVACS BIOPSY GASTROENT SINGLE/MU EROLOGYAS LTIPLE DILATION 47218 [facility] ESOPH 1 YIN KOVACS UNGUIDED GASTROENT SOUND/DINA EROLOGYAS GIE 1/MULT PASS COLONOSCO 39958 [facility] PY FLX DX 1 YIN KOVACS W/COLLJ GASTROENT SPEC WHEN EROLOGYAS PFRMD BLOOD [address] COUNT 1 GERALDO GERALDO COMPLETE AUTOMATED [place] [address] [facility] SURG [facility] PATH[facility] MED CTR GROSS&KIRILL ROSCOPIC EXAM PROTHROMB 9[address] ST [address] IN TIME 1 GERALDO GERALDO MEDICALCE MEDICALCE NTER NTER INJECTION J2250 ST ST 1 GERALDO GERALDO MIDAZOLAM HCL PER MEDICALCE MEDICALCE 1 MG NTER NTER INJECTION J2270 ST ST MORPHINE 1 GERALDO GERALDO SULFATE UP TO 10 MEDICALCE MEDICALCE MG NTER NTER INJECTION J2405 ST ST 1 GERALDO GERALDO ONDANSETR ON HCL MEDICALCE MEDICALCE PER 1 MG NTER NTER BASIC [address] ST [address] METABOLIC 1 GERALDO GERALDO PANEL CALCIUM MEDICALCE MEDICALCE TOTAL NTER NTER HEPARIN [address] [place] 1 GERALDO GERALDO MEDICALCE MEDICALCE NTER NTER INJECTION J1644 ST ST HEPARIN 1 GERALDO GERALDO SODIUM PER 1000 MEDICALCE MEDICALCE UNITS NTER NTER INJECTION J3010 ST ST FENTANYL 1 GERALDO GERALDO CITRATE 0.1 MG MEDICALCE MEDICALCE NTER NTER INJECTION J1644 ST ST HEPAR[place] 1 GERALDO GERALDO SODIUM PER 1000 MEDICALCE MEDICALCE UNITS NTER NTER INJECTION J3430 ST ST 1 GERALDO GERALDO PHYTONADI ONE PER 1 MEDICALCE MEDICALCE MG NTER NTER HEPARIN [address] [place] 1 GERALDO GERALDO MEDICALCE MEDICALCE NTER NTER SBSQ 24805 [facility] 1 KEYLA CARE/DAY GASTROENT 25 EROLOGY A MINUTES PROTHROMB [address] IN TIME 1 GERALDO GERALDO MEDICALCE MEDICALCE NTER NTER NONINVASI 714[address] ST [address] VE 1 GERALDO GERALDO EAR/PULSE OXIMETRY MEDICALCE MEDICALCE MULTIPLE NTER NTER DETER INJECTION J2405 ST ST 1 GERALDO GERALDO ONDANSETR ON HCL MEDICALCE MEDICALCE PER 1 MG NTER NTER BLOOD 969[address] ST ST COUNT 1 GERALDO GERALDO COMPLETE AUTOMATED MEDICALCE MEDICALCE NTER NTER BLOOD [address] COUNT 1 GERALDO GERALDO COMPLETE AUTOMATED MEDICALCE MEDICALCE NTER NTER INJECTION J2405 ST ST 1 GERALDO GERALDO ONDANSETR ON HCL MEDICALCE MEDICALCE PER 1 MG NTER NTER NONINVASI 69519 ST ST VE 1 GERALDO GERALDO EAR/PULSE OXIMETRY MEDICALCE MEDICALCE MULTIPLE NTER NTER DETER PROTHROMB [address] IN TIME 1 GERALDO GERALDO MEDICALCE MEDICALCE NTER NTER BLOOD [address] OCCULT 1 GERALDO GERALDO PEROXIDAS E ACTV MEDICALCE MEDICALCE QUAL NTER NTER FECES 1-3 SPEC SBSQ 42986 [facility] 1 CARE/DAY GASTROENT 25 EROLOGYAS MINUTES INJECTION J3430 ST ST 1 GERALDO GERALDO PHYTONADI ONE PER 1 MEDICALCE MEDICALCE MG NTER NTER BASIC [address] ST [address] METABOLIC 1 GERALDO GERALDO PANEL CALCIUM MEDICALCE MEDICALCE TOTAL NTER NTER INITIAL 58398 [facility] 1 CARE/DAY GASTROENT 30 EROLOGYAS MINUTES CULTURE [address] BACTERIAL 1 GERALDO GERALDO QUANTTATI MEDICALCE MEDICALCE VE COLONY NTER NTER COUNT URINE NONEMERGE A0100 [facility] 1 COMMUNITY TRANSPORT ACTION ATION; [facility] URNLS DIP [address] 1 GERALDO GERALDO STICK/TAB LET MEDICALCE MEDICALCE REAGENT NTER NTER AUTO MICROSCOP Y PROTHROMB [address] IN TIME 1 GERALDO GERALDO MEDICALCE MEDICALCE NTER NTER INJECTION J2270 ST ST MORPHINE 1 GERALDO GERALDO SULFATE UP TO 10 MEDICALCE MEDICALCE MG NTER NTER ECG [address] ROUTINE 1 GERALDO GERALDO ECG W/LEAST MEDICALCE MEDICALCE 12 LDS NTER NTER TRCG ONLY W/O I&R NONINVASI [address] VE 1 GERALDO GERALDO EAR/PULSE OXIMETRY MEDICALCE MEDICALCE MULTIPLE NTER NTER DETER ANTIBODY [address] HELICOBAC [address] PYLORI MEDICALCE MEDICALCE NTER NTER INJECTION J2405 ST ST 1 GERALDO GERALDO ONDANSETR ON HCL MEDICALCE MEDICALCE PER 1 MG NTER NTER BLOOD [address] COUNT 1 GERALDO GERALDO COMPLETE AUTOMATED MEDICALCE MEDICALCE NTER NTER MYOCARDIA [address] L SPECT 1 GERALDO GERALDO MULTIPLE STUDIES MEDICALCE MEDICALCE NTER NTER INJECTION J2405 ST ST 1 GERALDO GERALDO ONDANSETR ON HCL MEDICALCE MEDICALCE PER 1 MG NTER NTER BLOOD [address] COUNT 1 GERALDO GERALDO COMPLETE AUTOMATED MEDICALCE MEDICALCE NTER NTER NONINVASI [address] VE 1 GERALDO GERALDO EAR/PULSE OXIMETRY MEDICALCE MEDICALCE MULTIPLE NTER NTER DETER ECG [address] ROUTINE 1 GERALDO GERALDO ECG W/LEAST MEDICALCE MEDICALCE 12 LDS NTER NTER TRCG ONLY W/O I&R CV STRS 08-16-[address] TST 1 GERALDO CHOW XERS&/OR RX CONT MEDICALCE MEDICALCE ECG TRCG NTER NTER ONLY PROTHROMB [address] IN TIME 1 GERALDO CHOW MEDICALCE MEDICALCE NTER NTER PPSV23 [address] VACCINE 2 1 GERALDO CHOW YRS OR OLDER FOR MEDICALCE MEDICALCE SUBQ/IM NTER NTER USE ECHO [address] TTHRC R-T 1 GERALDO CHOW 2D W/WOM-MOD MEDICALCE MEDICALCE E COMPL NTER NTER SPEC&COLR D LIPID [address] PANEL 1 GERALDO CHOW MEDICALCE MEDICALCE NTER NTER TECHNETIU A9502 ST ST M TC-99M 1 GERALDO CRENSHAWZABETH TETROFOSM IN DX PER MEDICALCE MEDICALCE STUDY NTER NTER DOSE RHYTHM 62939 ST SIGIFREDO ECG 1-3 1 [facility]DO [facility] INTERPRET ATION & REPRT ON INJECTION J2785 ST ST 1 GERALDO CHOW REGADENOS ON 0.1 MG MEDICALCE MEDICALCE NTER NTER INJECTION J0280 ST ST 1 GERALDO CHOW AMINOPHYL JUAN JOSE UP TO MEDICALCE MEDICALCE 250 MG NTER NTER AMB A0427 RURAL/MET RURAL/MET SERVICE 1 RO RO ALS AMBULANCE AMBULANCE EMERGENCY TRANSPORT LEVEL [address] C 1 GERALDO CHOW EXAMINATI ADDIE ADDIE ON CHEST SINGLE VIEW FRONTAL RHYTHM 56769 ST WADE ECG 1-3 1 GERALDO GUILHERME [facility] INTERPRET ATION & REPRT ON BASIC [address] METABOLIC 1 GERALDO CHOW PANEL ADDIE ADDIE CALCIUM TOTAL THROMBOPL 717[address] ASTIN 1 GERALDO CHOW TIME PARTIAL MEDICALCE MEDICALCE PLASMA/[place] [address] MAGNESIUM 1 GERALDO CRENSHAWZABETH MEDICALCE MEDICALCE NTER NTER DRUG [address] [place] 1 GERALDO GERALDO VALPROIC DIPROPYLA MEDICALCE MEDICALCE CETIC NTER NTER ACID TOTAL HEPATIC [address] FUNCTION 1 GERALDO GERALDO PANEL MEDICALCE MEDICALCE NTER NTER PROTHROMB [address] IN TIME 1 GERALDO CHOW ADDIE ADDIE THER [address] PROPH/DX 1 GERALDO CHOW NJX IV ADDIE ADDIE PUSH SINGLE/1S T SBST/DRUG INITIAL 17874 [facility] 1 [facility] CTR [address] ROUTINE 1 GERALDO CHOW ECG ADDIE ADDIE W/LEAST 12 LDS TRCG ONLY W/O I&R INJECTION J2270 ST ST MORPHINE 1 GERALDO CHOW SULFATE UP TO 10 MEDICALCE MEDICALCE MG NTER NTER GROUND A0425 RURAL/MET RURAL/MET MILEAGE 1 RO RO PER AMBULANCE AMBULANCE STATUTE MILE NONINVASI [address] VE 1 GERALDO CHOW EAR/PULSE OXIMETRY MEDICALCE MEDICAL[place] [address] THYROID 1 GERALDO CHOW STIMULATI NG MEDICALCE MEDICALCE HORMONE NTER NTER TSH INJECTION J2405 ST ST 1 GERALDO CHOW ONDANSETR ON HCL MEDICALCE MEDICALCE PER 1 [place] [address] TROPONIN 1 GERALDO CHOW QUANTITAT JOSE ALFREDO MEDICALCE MEDICALCE NTER NTER BLOOD [address] COUNT 1 GERALDO CHOW COMPLETE ADDIE ADDIE AUTO&AUTO DIFRNTL WBC COLLECTIO [address] N VENOUS 1 GERALDO CASSIDYTH BLOOD ADDIE ADDIE VENIPUNCT URE DAY CARE S5100 [facility] 1 N ACTIVE N ACTIVE ADULT; DAY CENT DAY CENT PER 15 MINUTES NONEMERGE A0100 [facility] IN[facility] 1 COMMUNITY TRANSPORT ACTION ATION; TAXI NONEMERGE A0100 [facility] 1 COMMUNITY TRANSPORT ACTION ATION; TAXI DAY CARE S5100 [facility] 1 N ACTIVE N ACTIVE ADULT; DAY CENT DAY CENT PER 15 MINUTES DAY CARE S5100 [facility] 1 N ACTIVE N ACTIVE ADULT; DAY CENT DAY CENT PER 15 MINUTES NONEMERGE A0100 [facility] 1 COMMUNITY TRANSPORT ACTION ATION; TAXI NONEMERGE A0100 [facility] 1 COMMUNITY TRANSPORT ACTION ATION; TAXI NONEMERGE A0100 [facility] 1 COMMUNITY TRANSPORT ACTION ATION; TAXI DAY CARE S5100 [facility] 1 N ACTIVE N ACTIVE ADULT; DAY CENT DAY CENT PER 15 MINUTES DAY CARE S5100 [facility] 1 N ACTIVE N ACTIVE ADULT; DAY CENT DAY CENT PER 15 MINUTES NONEMERGE A0100 [facility] 1 COMMUNITY TRANSPORT ACTION ATION; TAXI NONEMERGE A0100 [facility] 1 COMMUNITY TRANSPORT ACTION ATION; TAXI DAY CARE S5100 [facility] 1 N ACTIVE N ACTIVE ADULT; DAY CENT DAY CENT PER 15 MINUTES DAY CARE S5100 [facility] 1 N ACTIVE N ACTIVE ADULT; DAY CENT DAY CENT PER 15 MINUTES PRTBLE E0431 JANAE CARDOSO GASEOUS 1 HOME HOME O2 SYS MEDICAL MEDICAL RENT; EQUIPME EQUIPME FLWMTR HUMIDFR&M ASK NONEMERGE A0100 [facility] 1 COMMUNITY TRANSPORT ACTION ATION; [facility]AXI O2 CONC 1 E1390 [place]E CARDOSO [place] 1 HOME HOME 85%/>02 MEDICAL MEDICAL CONC AT EQUIPME EQUIPME PRSC FLW RATE PROTHROMB 10951 COMBINED COMBINED IN TIME 1 PHYSICIAN PHYSICIAN S LA S LA DAY CARE S5100 [facility] 1 N ACTIVE N ACTIVE ADULT; DAY CENT DAY CENT PER 15 MINUTES NONEMERGE A0100 [facility] 1 COMMUNITY TRANSPORT ACTION ATION; TAXI NONEMERGE A0100 [facility] 1 COMMUNITY TRANSPORT ACTION ATION; TAXI DAY CARE S5100 [facility] 1 N ACTIVE N ACTIVE ADULT; DAY CENT DAY CENT PER 15 MINUTES DAY CARE S5100 [facility] 1 N ACTIVE N ACTIVE ADULT; DAY CENT DAY CENT PER 15 MINUTES NONEMERGE A0100 [facility] 1 COMMUNITY TRANSPORT ACTION ATION; TAXI NONEMERGE A0100 [facility] 1 COMMUNITY TRANSPORT ACTION ATION; [facility]I DAY CARE S5100 [facility] 1 N ACTIVE N ACTIVE ADULT; DAY CENT DAY CENT PER 15 MINUTES DAY CARE S5100 [facility] 1 N ACTIVE N ACTIVE ADULT; DAY CENT DAY CENT PER 15 MINUTES NONEMERGE A0100 [facility] 1 COMMUNITY TRANSPORT ACTION ATION; TAXI NONEMERGE A0100 [facility] 1 COMMUNITY TRANSPORT ACTION ATION; [facility]AXI DAY CARE S5100 [facility] 1 N ACTIVE N ACTIVE ADULT; DAY CENT DAY CENT [place] [address] [place] [address] MAGNESIUM 1 GERALDOMIRANDA [place] [address] RADIOLOGY DNEISE HEAD/BRAI 1 ARON N W/O ASSOCIATE CONTRAST S PSC MATERIAL PROTHROMB [address] IN TIME 1 GERALDO GERLADO [place] [address] PHOSPHORU 1 GERALDO CHOW S INORGANIC [place] [address] TROPONIN 1 GERALDOKUMAR CHOW QUANTIT JOSE ALFREDO MEDICALCE MEDICALCE NTER NTER BLOOD [address] COUNT 1 GERALDO GERALDO COMPLETE AUTO&AUTO MEDICALCE MEDICALCE DIFRNTL NTER NTER WBC PRESSURIZ [address] ED/NONPRE 1 GERALDO GERALDO SSURIZED INHALATIO MEDICALCE MEDICALCE N NTER NTER TREATMENT NONINVASI [address] VE 1 GERALDO GERALDO EAR/PULSE OXIMETRY MEDICALCE MEDICALCE MULTIPLE NTER NTER DETER OBSERVATI 93186 [facility] ON CARE 1 GERALDO JAYLYN DISCHARGE MED CTR MANAGEMEN T SBSQ 32912 [facility] 1 GERALDO NEREIDA CARE/DAY 25 PHYSICIAN MINUTES S BASIC [address] METABOLIC 1 GERALDO CHOW PANEL CALCIUM MEDICALCE MEDICALCE TOTAL NTER NTER RHYTHM 88372 [facility] ECG 1-3 1 GERALDO JAYLYN [facility] INTERPRET ATION & REPRT ON RHYTHM 06349 ST [facility] ECG 1-3 1 GERALDO JAYLYN [facility] INTERPRET ATION & REPRT ON BASIC [address] METABOLIC 1 GERALDO CHOW PANEL ADIDE ADDIE CALCIUM TOTAL RADIOLOGI 70013 RADIOLOGY HONG C 1 JAM EXAMINATI ASSOCIATE ON CHEST S PSC SINGLE VIEW FRONTAL INITIAL 91656 [facility] 1 GERALDO JAYLYN CARE/DAY MED CTR [address] IC 1 GERALDO CHOW INJECTION IV PUSH MEDICALCE MEDICALCE [place] [address] INFUSION 1 GERALDO CHOW HYDRATION ADDIE ADDIE INITIAL 31 MIN-[address] ED/NONPRE 1 GERALDOMIRANDA CHOW SSURIZED INHALATIO MEDICALCE [place] [address] THYROID 1 GERALDOMIRANDA CHOW STIMULATI NG MEDICALCE MEDICALCE HORMONE NTER NTER TSH AMB A0426 RURAL/MET RURAL/MET SERVICE 1 RO RO ALS AMBULANCE AMBULANCE NONEMERGE NCY TRANSPORT LEVEL [address] N VENOUS 1 GERALDO CHOW BLOOD ADDIE ADDIE VENIPUNCT URE BLOOD [address] COUNT 1 GERALDO CHOW COMPLETE ADDIE ADDIE AUTO&[place] [address] FREE 1 GERALDO CHOW THYROXINE MEDICAL[place] [address] TROPONIN 1 GERALDO CHOW [place]IT[place] [address] RADIOLOGY DENISE ANGIOGRAP 1 ARON HY ASSOCIATE ABDOMEN S PSC W/CONTRAS T/NONCONT RAST FIBRIN [address] DGRADJ 1 GERALDO CHOW PRODUCTS D-DIMER MEDICALCE MEDICALCE QUANTITAT NTER NTER JOSE ALFREDO PROTHROMB [address] IN TIME 1 GERALDO CHOW ADDIE ADDIE THER [address] PROPH/DX 1 GERALDO CHOW NJX IV PUSH MEDICALCE MEDICALCE SINGLE/1S NTER NTER T SBST/DRUG DEMO&/JOO [address] ST ST L OF PT 1 GERALDO CHOW UTILIZ AERSL MEDICALCE MEDICALCE GEN/NEB/I NTER NTER NHLR/IP GROUND A0425 RURAL/MET RURAL/MET MILEAGE 1 RO RO PER AMBULANCE AMBULANCE STATUTE MILE ECG [address] ROUTINE 1 GERALDO CHOW ECG ADDIE ADDIE W/LEAST 12 LDS TRCG ONLY W/O I&[place] [address] RADIOLOGY DENISE ANGIOGRAP 1 ARON HY CHEST ASSOCIATE W/CONTRAS S PSC T/NONCONT [facility] ST OBSERVATI 1 GERALDO CHOW ON SERVICE MEDICALCE MEDICALCE PER HOUR NTER NTER DIRECT G0379 ST ST ADMISSION 1 GERALDO CASSIDYTH PATIENT HOSPITAL MEDICALCE MEDICALCE OBSERV NTER NTER CARE GASES 46722 [facility] BLOOD PH 1 GERALDO CHOW DIRECT WILLEM XCPT MEDICALCE MEDICALCE PULSE NTER NTER OXIMITRY ECHO 32156 [facility] TTHRC R-T 1 GERALDO CHOW 2D W/WOM-MOD MEDICALCE MEDICALCE E COMPL NTER NTER SPEC&COLR D DAY CARE S5100 [facility] 1 N ACTIVE N ACTIVE ADULT; DAY CENT DAY CENT PER 15 MINUTES NONEMERGE A0100 [facility] 1 COMMUNITY TRANSPORT ACTION ATION; TAXI NONEMERGE A0100 [facility] INY 1 COMMUNITY TRANSPORT ACTION ATION; TAXI DAY CARE S5100 [facility] 1 N ACTIVE N ACTIVE ADULT; DAY CENT DAY CENT PER 15 MINUTES DAY CARE S5100 [facility] 1 N ACTIVE N ACTIVE ADULT; DAY CENT DAY CENT PER 15 MINUTES NONEMERGE A0100 [facility] INY 1 COMMUNITY TRANSPORT ACTION ATION; TAXI NONEMERGE A0100 [facility] INY 1 COMMUNITY TRANSPORT ACTION ATION; TAXI DAY CARE S5100 [facility] 1 N ACTIVE N ACTIVE ADULT; DAY CENT DAY CENT PER 15 MINUTES PRTBLE E0431 JANAE CARDOSO GASEOUS 1 HOME MED HOME MED O2 SYS EQUIP. L EQUIP. L RENT; FLWMTR HUMIDFR&M ASK O2 CONC 1 E1390 [place]E CARD[place]O [place] 1 HOME MED HOME MED 85%/>02 EQUIP. L EQUIP. L CONC AT [facility] FLW RATE NONEMERGE A0100 [facility] 1 COMMUNITY TRANSPORT ACTION ATION; TAXI DAY CARE S5100 [facility] 1 N ACTIVE N ACTIVE ADULT; DAY CENT DAY CENT PER 15 MINUTES DAY CARE S5100 [facility] 1 N ACTIVE N ACTIVE ADULT; DAY CENT DAY CENT PER 15 MINUTES NONEMERGE A0100 [facility] 1 COMMUNITY TRANSPORT ACTION ATION; TAXI NONEMERGE A0100 [facility] 1 COMMUNITY TRANSPORT ACTION ATION; TAXI DAY CARE S5100 [facility] 1 N ACTIVE N ACTIVE ADULT; DAY CENT DAY CENT PER 15 MINUTES DAY CARE S5100 [facility] 1 N ACTIVE N ACTIVE ADULT; DAY CENT DAY CENT PER 15 MINUTES NONEMERGE A0100 [facility] 1 COMMUNITY TRANSPORT ACTION ATION; TAXI NONEMERGE A0100 [facility] 1 COMMUNITY TRANSPORT ACTION ATION; TAXI DAY CARE S5100 [facility] 1 N ACTIVE N ACTIVE ADULT; DAY CENT DAY CENT PER 15 MINUTES DAY CARE S5100 [facility] 1 N ACTIVE N ACTIVE ADULT; DAY CENT DAY CENT PER 15 MINUTES NONEMERGE A0100 [facility] 1 COMMUNITY TRANSPORT ACTION ATION; TAXI NONEMERGE A0100 [facility] 1 COMMUNITY TRANSPORT ACTION ATION; TAXI DAY CARE S5100 [facility] 1 N ACTIVE N ACTIVE ADULT; DAY CENT DAY CENT PER 15 MINUTES DAY CARE S5100 [facility] 1 N ACTIVE N ACTIVE ADULT; DAY CENT DAY CENT PER 15 MINUTES NONEMERGE A0100 [facility] 1 COMMUNITY TRANSPORT ACTION ATION; TAXI NONEMERGE A0100 [facility] 1 COMMUNITY TRANSPORT ACTION ATION; TAXI NONEMERGE A0100 [facility] 1 COMMUNITY TRANSPORT ACTION ATION; TAXI DAY CARE S5100 [facility] 1 N ACTIVE N ACTIVE ADULT; DAY CENT DAY CENT PER 15 MINUTES DAY CARE S5100 [facility] 1 N ACTIVE N ACTIVE ADULT; DAY CENT DAY CENT PER 15 MINUTES NONEMERGE A0100 [facility] 1 COMMUNITY TRANSPORT ACTION ATION; TAXI NONEMERGE A0100 [facility] 1 COMMUNITY TRANSPORT ACTION ATION; TAXI DAY CARE S5100 [facility] 1 N ACTIVE N ACTIVE ADULT; DAY CENT DAY CENT PER 15 MINUTES PRTBLE E0431 [facility] 1 HOME MED HOME MED O2 SYS EQUIP. L EQUIP. L RENT; FLWMTR HUMIDFR&M ASK O2 CONC 1 E1390 [facility] [place] 1 HOME MED HOME MED 85%/>02 EQUIP. L EQUIP. L CONC AT [facility] FLW RATE NONEMERGE A0100 [facility] MEDI-CAB NCY 1 COMMUNITY TRANSPORT ACTION ATION; TAXI DAY CARE S5100 [facility] 1 N ACTIVE N ACTIVE ADULT; DAY CENT DAY CENT PER 15 MINUTES DAY CARE S5100 [facility] 1 N ACTIVE N ACTIVE ADULT; DAY CENT DAY CENT PER 15 MINUTES NONEMERGE A0100 [facility] 1 COMMUNITY TRANSPORT ACTION ATION; TAXI NONEMERGE A0100 [facility] 1 COMMUNITY TRANSPORT ACTION ATION; [place]I DAY CARE S5100 [facility] 1 N ACTIVE N ACTIVE ADULT; DAY CENT DAY CENT PER 15 MINUTES DAY CARE S5100 [facility] 1 N ACTIVE N ACTIVE ADULT; DAY CENT DAY CENT PER 15 MINUTES NONEMERGE A0100 [facility] 1 COMMUNITY TRANSPORT ACTION ATION; TAXI NONEMERGE A0100 [facility] 1 COMMUNITY TRANSPORT ACTION ATION; TAXI PROTHROMB [id number] KENNEDY BENAVIDES IN TIME 1 [facility] PROTHROMB 29035 KENNEDY BENAVIDES IN TIME 1 [facility] DRUG 73841 KENNEDY BENAVIDES ASSAY 1 [facility] DIPROPYLA CETIC ACID TOTAL BASIC 08351 KENNEDY BENAVIDES METABOLIC 1 [facility] CALCIUM TOTAL NONEMERGE A0100 [facility] MEDI-CAB NCY 1 COMMUNITY TRANSPORT ACTION ATION; TAXI DAY CARE S5100 [facility] 1 N ACTIVE N ACTIVE ADULT; DAY CENT DAY CENT PER 15 MINUTES PRTBLE E0431 [facility] C[facility] 1 HOME MED HOME MED O2 SYS EQUIP. L EQUIP. L RENT; FLWMTR HUMIDFR&M [facility] 37110 [facility] DISCHARGE 1 LACEY LACEY DAY MANAGEMEN T > 30 MIN O2 CONC 1 E1390 [facility] [place] 1 HOME MED HOME MED 85%/>02 EQUIP. L EQUIP. L CONC AT [facility] FLW RATE SBSQ 73942 [facility] 1 LACEY LACEY CARE/DAY 25 MINUTES SBSQ 21606 [facility] 1 LACEY LACEY CARE/DAY 25 MINUTES SBSQ 84413 [facility] 1 LACEY LACEY CARE/DAY 25 [place] [address] [facility] ABDOMINAL 1 EIDER SUSIE REAL RADIOLOGY TIME ASSOCIAT W/IMAGE DOCUMENTA TION ECG 99131 [facility] ROUTINE 1 LACEY LACEY ECG W/LEAST 12 LDS I&R ONLY ECHO 38753 LEE GALVIN GALVIN LEE TTHRC R-T 1 2D CONSULTIN W/WOM-MOD G SRV E COMPL SPEC&COLR D SBSQ 01854 [facility] 1 LACEY LACEY CARE/DAY 25 MINUTES SBSQ 48882 [facility] 1 LACEY LACEY CARE/DAY 35 MINUTES SBSQ 31156 [facility] 1 LACEY LACEY CARE/[place] [address] [place] [address] [facility] ABDOMEN & 1 EIDER SUSIE PELVIS RADIOLOGY W/O ASSOCIAT CONTRAST MATERIAL SBSQ 48677 [facility] 1 LACEY LACEY CARE/DAY 35 MINUTES CULTURE 08824 [facility] BENAV[facility]ES BACTERIAL 1 CO CO BLOOD [facility] [place]EROB[place] W/[place] [address] KENNEDY BENAVIDES INFUSION 1 CO CO HYDRATION [facility] INITIAL 31 MIN-1 [place] [address] [facility] BENAV[facility]ES INFUSION 1 CO CO THERAPY/P [facility]OSPITAL H[facility]PITAL ROPHYLAXI S /DX 1ST [place] 1 [place] [address] [facility]ENN[facility]Y BENAVIDES TROPONIN 1 CO CO QUANTITAT [facility] JOSE ALFREDO BLOOD 16850 [facility] COUNT 1 CO CO COMPLETE [facility] AUTO&AUTO DIFRNTL WBC FIBRIN 18258 [facility] DGRADJ 1 CO CO PRODUCTS [facility] D-DIMER QUAL/SEMI KRYSTYNA PROTHROMB 16146 [facility] BE[facility] IN TIME 1 [facility] H[facility]PITAL THER 49670 [facility] PROPH/DX 1 CO CO NJX IV [facility] PUSH SINGLE/1S T SBST/DRUG ECG 38328 [facility] BENAV[facility]ES ROUTINE 1 CO CO ECG [facility] W/LEAST 12 LDS TRCG ONLY W/O I&R ECG 67399 [facility] ROUTINE 1 LACEY LACEY ECG W/LEAST 12 LDS I&R ONLY MYOGLOBIN 56805 [facility] 1 [facility] CO H[facility]PITAL HOSPITAL CREATINE 74059 [facility] KINASE MB 1 CO CO FRACTION [facility] HOSPITAL ONLY CREATINE 61528 [facility] KINASE 1 [facility] CRITICAL 71691 [facility] CARE 1 CO CO ILL/INJUR [facility]OSPITAL HOSPITAL ED PATIENT INIT 30-74 MIN BLOOD 32400 [facility] COUNT 1 CO CO SMEAR [facility] MCRSCP W/MNL DIFRNTL WBC COUNT BASIC 24986 [facility] BE[facility] METABOLIC 1 CO CO PANEL [facility] CALCIUM TOTAL INITIAL 52031 [facility] 1 LACEY LACEY CARE/DAY 70 MINUTES NONEMERGE A0100 [facility] NCY 1 COMMUNITY TRANSPORT ACTION ATION; TAXI DAY CARE S5100 [facility] 1 N ACTIVE N ACTIVE ADULT; DAY CENT DAY CENT PER 15 MINUTES LIPID 53494 [facility] PANEL 1 [facility] PROTHROMB 04009 [facility] IN TIME [place] [address] SUSAN DAVIS ABDOMEN & 1 [facility] INC W/O CONTRAST MATERIAL BLOOD 60092 [facility] COUNT 1 [facility] COMPLETE AUTO&[place] [address] [facility] THYROID 1 [facility] STIMULATI NG HORMONE TSH C-REACTIV 69538 [facility] E PROTEIN 1 [facility] 3D 76062 SUSAN DAVIS RENDERING 1 [facility] INC W/INTERP& POSTPROC DIFF WORK STATION NONEMERGE A0100 [facility] NCY 1 COMMUNITY TRANSPORT ACTION ATION; [facility] DAY CARE S5100 [facility] 1 N ACTIVE N ACTIVE ADULT; DAY CENT DAY CENT PER 15 MINUTES DAY CARE S5100 [facility] 1 N ACTIVE N ACTIVE ADULT; DAY CENT DAY CENT PER 15 MINUTES NONEMERGE A0100 [facility] NCY 1 COMMUNITY TRANSPORT ACTION ATION; TAXI NONEMERGE A0100 [facility] NCY 1 COMMUNITY TRANSPORT ACTION ATION; [facility] DAY CARE S5100 [facility] 1 N ACTIVE N ACTIVE ADULT; DAY CENT DAY CENT PER 15 MINUTES DAY CARE S5100 [facility] 1 N ACTIVE N ACTIVE ADULT; DAY CENT DAY CENT PER 15 MINUTES NONEMERGE A0100 [facility] NCY 1 COMMUNITY TRANSPORT ACTION ATION; TAXI NONEMERGE A0100 [facility] NCY 1 COMMUNITY TRANSPORT ACTION ATION; [facility] DAY CARE S5100 [facility] 1 N ACTIVE N ACTIVE ADULT; DAY CENT DAY CENT PER 15 MINUTES DAY CARE S5100 [facility] 1 N ACTIVE N ACTIVE ADULT; DAY CENT DAY CENT PER 15 MINUTES NONEMERGE A0100 [facility] NCY 1 COMMUNITY TRANSPORT ACTION ATION; TAXI NONEMERGE A0100 [facility] 1 COMMUNITY TRANSPORT ACTION ATION; [facility] DAY CARE S5100 [facility] 1 N ACTIVE N ACTIVE ADULT; DAY CENT DAY CENT PER 15 MINUTES DAY CARE S5100 [facility] 1 N ACTIVE N ACTIVE ADULT; DAY CENT DAY CENT PER 15 MINUTES NONEMERGE A0100 [facility] 1 COMMUNITY TRANSPORT ACTION ATION; TAXI NONEMERGE A0100 [facility] 1 COMMUNITY TRANSPORT ACTION ATION; TAXI O2 CONC 1 E1390 JANAE CARDOSO DEL PORT 1 HOME MED HOME MED 85%/>02 EQUIP. L EQUIP. L CONC AT [facility] FLW RATE DAY CARE S5100 [facility] 1 N ACTIVE N ACTIVE ADULT; DAY CENT DAY CENT PER 15 MINUTES PRTBLE E0431 JANAE CARDOSO GASEOUS 1 HOME MED HOME MED O2 SYS EQUIP. L EQUIP. L RENT; [facility] DAY CARE S5100 [facility] 1 N ACTIVE N ACTIVE ADULT; DAY CENT DAY CENT PER 15 MINUTES NONEMERGE A0100 [facility] 1 COMMUNITY TRANSPORT ACTION ATION; TAXI NONEMERGE A0100 [facility] 1 COMMUNITY TRANSPORT ACTION ATION; [facility] DAY CARE S5100 [facility] 1 N ACTIVE N ACTIVE ADULT; DAY CENT DAY CENT PER 15 MINUTES DAY CARE S5100 [facility] 1 N ACTIVE N ACTIVE ADULT; DAY CENT DAY CENT PER 15 MINUTES NONEMERGE A0100 [facility] 1 COMMUNITY TRANSPORT ACTION ATION; TAXI NONEMERGE A0100 [facility] 1 COMMUNITY TRANSPORT ACTION ATION; [facility] DAY CARE S5100 [facility] 1 N ACTIVE N ACTIVE ADULT; DAY CENT DAY CENT PER 15 MINUTES DAY CARE S5100 [facility] 1 N ACTIVE N ACTIVE ADULT; DAY CENT DAY CENT PER 15 MINUTES NONEMERGE A0100 [facility] 1 COMMUNITY TRANSPORT ACTION ATION; TAXI NONEMERGE A0100 [facility] NCY 1 COMMUNITY TRANSPORT ACTION ATION; [facility] DAY CARE S5100 [facility] 1 N ACTIVE N ACTIVE ADULT; DAY CENT DAY CENT PER 15 MINUTES DAY CARE S5100 [facility] 1 N ACTIVE N ACTIVE ADULT; DAY CENT DAY CENT PER 15 MINUTES NONEMERGE A0100 [facility] NCY 1 COMMUNITY TRANSPORT ACTION ATION; TAXI NONEMERGE A0100 [facility] INY 1 COMMUNITY TRANSPORT ACTION ATION; [facility] DAY CARE S5100 [facility] 1 N ACTIVE N ACTIVE ADULT; DAY CENT DAY CENT PER 15 MINUTES DAY CARE S5100 [facility] 1 N ACTIVE N ACTIVE ADULT; DAY CENT DAY CENT PER 15 MINUTES NONEMERGE A0100 [facility] NCY 1 COMMUNITY TRANSPORT ACTION ATION; TAXI NONEMERGE A0100 [facility] NCY 1 COMMUNITY TRANSPORT ACTION ATION; [facility] DAY CARE S5100 [facility] 1 N ACTIVE N ACTIVE ADULT; DAY CENT DAY CENT PER [address] THORAX 08590 [facility] JACQUELINE W/O 1 MEDICAL ADR CONTRAST SERV MATERIAL [facility] [address] [facility] [place] DISCHARGE 1 MEDICAL VEE DAY SERV MANAGEMEN FOUNDATIO T 30 MIN/< DOPPLER 40063 [facility] HUANG CAI ECHOCARD 1 MEDICAL PULSE SERV WAVE FOUNDATIO W/SPECTRA L DISPLAY CV STRS 72880 [facility] HUANG CAI TST 1 MEDICAL XERS&/OR SERV RX CONT FOUNDATIO ECG I&R ONLY ECHO 11569 [facility] HUANG CAI TTHRC R-T 1 MEDICAL 2D W/WO SERV M-MODE FOUNDATIO COMPLETE REST&ST ECG 77064 [facility] IBETH C ROUTINE 1 MEDICAL ECG SERV W/LEAST FOUNDATIO 12 LDS I&R ONLY SBSQ 68524 [facility] 1 MEDICAL VEE CARE/DAY SERV 35 FOUNDATIO MINUTES CV STRS 31637 MAR[facility]ON CAI TST 1 MEDICAL XERS&/OR SERV RX CONT FOUNDATIO ECG W/O I&R DOP 06876 [facility] CAI ECHOCARD 1 MEDICAL COLOR SERV FLOW FOUNDATIO VELOCITY MAPPING ECG 26114 [facility] ROUTINE 1 CO CO ECG [facility] W/LEAST 12 LDS TRCG ONLY W/O I&R PROTHROMB 68988 [facility] BENAVIDES IN TIME 1 CO CO HOSPITAL HOSPITAL THER 03713 [facility] PROPH/DX 1 CO CO NJX IV [facility] PUSH SINGLE/1S T SBST/DRUG SUSCEPTBI 03332 [facility] BENAV[facility] LTY STDY 1 CO CO ANTIMICRB [facility] [place] [address] [facility] INFUSION 1 CO CO THERAPY/P [facility] ROPHYLAXI S /DX 1ST TO 1 [place] [address] [facility] BENAVIDES TROPONIN 1 CO CO QUANTITAT [facility] JOSE ALFREDO COLLECTIO 92368 [facility] N VENOUS 1 CO CO BLOOD [facility] VENIPUNCT URE IMMUNOASS 01263 [facility] BE[facility] AY 1 CO CO ANALYTE [facility] QUANT RADIOIMMU NOASSAY MYOGLOBIN 06731 [facility] BENAV[facility]ES 1 CO CO [facility] ECG 93953 [facility] COUGHLIN ROUTINE 1 MEDICAL ECG SERV W/LEAST FOUNDATIO 12 LDS I&R ONLY URNLS DIP 02675 [facility] 1 CO CO STICK/TAB HOSPITAL HOSPITAL LET REAGENT AUTO MICROSCOP Y RADIOLOGI 09188 [facility] C EXAM 1 CO CO CHEST 2 [facility] VIEWS FRONTAL&L ATERAL CREATINE 39609 [facility] BE[facility]VID[facility] KINASE 1 [facility] CREATINE 56595 [facility] BENAVID[facility] KINASE MB 1 CO CO FRACTION [facility] ONLY COMPREHEN 43067 [facility] SIVE 1 CO CO [facility]ABOLIC [facility]OSPITAL HOSPITAL PANEL BLOOD 01654 [facility] BENAVID[facility] COUNT 1 CO CO SMEAR [facility] MCRSCP W/MNL DIFRNTL WBC COUNT INITIAL 40546 [facility] 1 MEDICAL VEE CARE/DAY SERV 70 FOUNDATIO MINUTES CRITICAL 22764 KENNEDY KENNEDY CARE 1 [place] ILL/INJUR [facility] ED PATIENT INIT 30-74 MIN THROMBOPL 24377 KENNEDY KENNEDY ASTIN 1 [place] CO TIME [facility] PARTIAL PLASMA/WH OLE BLOOD CULTURE 66450 KENNEDY KENNEDY BACTERIAL 1 [facility] QUANTTATI VE COLONY COUNT URINE CULTURE 05767 KENNEDY KENNEDY BCT 1 [facility] PTV ID ISOLATE EA URINE NONEMERGE A0100 [facility] INY 1 COMMUNITY TRANSPORT ACTION ATION; [facility] DAY CARE S5100 [facility] 1 N ACTIVE N ACTIVE ADULT; DAY CENT DAY CENT PER 15 MINUTES PRTBLE E0431 JANAE CARDOSO GASEOUS 1 HOME MED HOME MED O2 SYS EQUIP. L EQUIP. L RENT; FLWMTR HUMIDFR&M ASK O2 CONC 1 E1390 [place] [place] [place] 1 HOME MED HOME MED 85%/>02 EQUIP. L EQUIP. L CONC AT [facility] FLW RATE NONEMERGE A0100 [facility]AB INY 1 COMMUNITY TRANSPORT ACTION ATION; [facility] DAY CARE S5100 [facility] 1 N ACTIVE N ACTIVE ADULT; DAY CENT DAY CENT PER 15 MINUTES DAY CARE S5100 [facility] 1 N ACTIVE N ACTIVE ADULT; DAY CENT DAY CENT PER 15 MINUTES NONEMERGE A0100 [facility] NCY 1 COMMUNITY TRANSPORT ACTION ATION; TAXI NONEMERGE A0100 [facility] NCY 1 COMMUNITY TRANSPORT ACTION ATION; [facility] DAY CARE S5100 [facility] 1 N ACTIVE N ACTIVE ADULT; DAY CENT DAY CENT PER 15 MINUTES NONEMERGE A0100 [facility] INY 1 COMMUNITY TRANSPORT ACTION ATION; TAXI NONEMERGE A0100 [facility] NCY 1 COMMUNITY TRANSPORT ACTION ATION; [facility] DAY CARE S5100 [facility] 1 N ACTIVE N ACTIVE ADULT; DAY CENT DAY CENT PER 15 MINUTES DAY CARE S5100 [facility] 1 N ACTIVE N ACTIVE ADULT; DAY CENT DAY CENT PER 15 MINUTES NONEMERGE A0100 [facility] NCY 1 COMMUNITY TRANSPORT ACTION ATION; TAXI NONEMERGE A0100 [facility] NCY 1 COMMUNITY TRANSPORT ACTION ATION; [facility]I DAY CARE S5100 [facility] 1 N ACTIVE N ACTIVE ADULT; DAY CENT DAY CENT PER 15 MINUTES [facility] [address] [facility] NAIL 1 FOOT & ANY ANKLE CE METHOD / DAY CARE S5100 [facility] 1 N ACTIVE N ACTIVE ADULT; DAY CENT DAY CENT PER 15 MINUTES NONEMERGE A0100 [facility] NCY 1 COMMUNITY TRANSPORT ACTION ATION; TAXI NONEMERGE A0100 [facility] NCY 1 COMMUNITY TRANSPORT ACTION ATION; [facility]I DAY CARE S5100 [facility] 1 N ACTIVE N ACTIVE ADULT; DAY CENT DAY CENT PER 15 MINUTES DAY CARE S5100 [facility] 1 N ACTIVE N ACTIVE ADULT; DAY CENT DAY CENT PER 15 MINUTES NONEMERGE A0100 [facility] NCY 1 COMMUNITY TRANSPORT ACTION ATION; TAXI NONEMERGE A0100 [facility] NCY 1 COMMUNITY TRANSPORT ACTION ATION; [facility]I DAY CARE S5100 [facility] 1 N ACTIVE N ACTIVE ADULT; DAY CENT DAY CENT PER 15 MINUTES DAY CARE S5100 [facility] 1 N ACTIVE N ACTIVE ADULT; DAY CENT DAY CENT PER 15 MINUTES NONEMERGE A0100 [facility] NCY 1 COMMUNITY TRANSPORT ACTION ATION; TAXI NONEMERGE A0100 [facility] NCY 1 COMMUNITY TRANSPORT ACTION ATION; TAXI DAY CARE S5100 [facility] 1 N ACTIVE N ACTIVE ADULT; DAY CENT DAY CENT PER 15 MINUTES ECG 89459 [facility] ROUTINE 1 LACEY LACEY ECG W/LEAST 12 LDS I&R ONLY RADIOLOGI 38537 [facility] C EXAM 1 MJ CHEST 2 RADIOLOGY VIEWS ASSOCIAT FRONTAL&L ATERAL PRTBLE E0431 JANAE CARDOSO GASEOUS 1 HOME MED HOME MED O2 SYS EQUIP. L EQUIP. L RENT; FLWMTR HUMIDFR&M ASK O2 CONC 1 E1390 [facility] CARDOSO DEL PORT 1 HOME MED HOME MED 85%/>02 EQUIP. L EQUIP. L CONC AT [facility] FLW RATE ECG 59938 [facility] ROUTINE 1 LACEY LACEY ECG [facility]AST [facility] 53239 [facility] DISCHARGE 1 LACEY LACEY DAY MANAGEMEN T > 30 MIN SBSQ 67634 [facility] 1 LACEY LACEY CARE/DAY 25 MINUTES SBSQ 47839 [facility] 1 LACEY LACEY CARE/DAY 25 MINUTES SBSQ 79320 [facility] 1 LACEY LACEY CARE/DAY 25 MINUTES SBSQ 98375 [facility] 1 LACEY LCAEY CARE/DAY 25 MINUTES NONEMERGE A0100 [facility] 1 COMMUNITY TRANSPORT ACTION ATION; TAXI RADIOLOGI 65767 [facility] C EXAM 1 EIDER SUSIE CHEST 2 RADIOLOGY VIEWS ASSOCIAT FRONTAL&L ATERAL INITIAL 79484 [facility] 1 LACEY LACEY CARE/DAY [address] THORAX 40389 [facility] W/O 0 EIDER SUSIE CONTRAST RADIOLOGY MATERIAL ASSOCIAT SBSQ 28888 [facility] 0 REGLA REGLA CARE/DAY 25 MINUTES BLOOD 07391 NEW NEW COUNT 0 [facility] SMEAR [facility] MED CTR MCRSCP W/MNL DIFRNTL WBC COUNT BASIC 18699 NEW NEW METABOLIC 0 [facility] PANEL MED CTR MED CTR CALCIUM TOTAL RADIOLOGI 53665 [facility] NEW C EXAM 0 [facility] CHEST 2 MED CTR MED CTR VIEWS FRONTAL&L ATERAL IMMUNOASS 60352 NEW NEW AY 0 [facility] ANALYTE MED CTR MED CTR QUANTITAT JOSE ALFREDO NOS COLLECTIO 36264 NEW NEW N VENOUS 0 [facility] BLOOD MED CTR MED CTR VENIPUNCT URE BLOOD 37757 NEW NEW COUNT 0 [facility] COMPLETE MED CTR MED CTR AUTO&AUTO DIFRNTL WBC PROTHROMB 62600 NEW NEW IN TIME 0 [facility] MED CTR MED CTR DAY CARE S5100 [facility] 0 N ACTIVE N ACTIVE ADULT; DAY CENT DAY CENT PER 15 MINUTES NONEMERGE A0100 [facility] NCY 0 COMMUNITY TRANSPORT ACTION ATION; TAXI NONEMERGE A0100 [facility] NCY 0 COMMUNITY TRANSPORT ACTION ATION; T[facility]I DAY CARE S5100 [facility] 0 N ACTIVE N ACTIVE ADULT; DAY CENT DAY CENT PER 15 MINUTES DAY CARE S5100 [facility] 0 N ACTIVE N ACTIVE ADULT; DAY CENT DAY CENT PER 15 MINUTES NONEMERGE A0100 [facility] MEDI-[facility]AB NCY 0 COMMUNITY TRANSPORT ACTION ATION; TAXI NONEMERGE A0100 [facility] NCY 0 COMMUNITY TRANSPORT ACTION ATION; [facility]I DAY CARE S5100 [facility] 0 N ACTIVE N ACTIVE ADULT; DAY CENT DAY CENT PER 15 MINUTES DAY CARE S5100 [facility] 0 N ACTIVE N ACTIVE ADULT; DAY CENT DAY CENT PER 15 MINUTES PRTBLE E0431 JANAE CARDOSO GASEOUS 0 HOME MED HOME MED O2 SYS EQUIP. L EQUIP. L RENT; FL[facility]TR HUMIDFR&M ASK NONEMERGE A0100 [facility] NCY 0 COMMUNITY TRANSPORT ACTION ATION; TAXI O2 CONC 1 E1390 [facility]E CARDOSO DEL PORT 0 HOME MED HOME MED 85%/>02 EQUIP. L EQUIP. L CONC AT [facility] FLW RATE NONEMERGE A0100 [facility] NCY 0 COMMUNITY TRANSPORT ACTION ATION; TAXI DAY CARE S5100 [facility] 0 N ACTIVE N ACTIVE ADULT; DAY CENT DAY CENT PER 15 MINUTES DAY CARE S5100 [facility] 0 N ACTIVE N ACTIVE ADULT; DAY CENT DAY CENT PER 15 MINUTES [place] [address] [facility] RE[facility] NT NAIL 0 FOOT & ANY ANKLE CE METHOD 6/> NONEMERGE A0100 [facility] NCY 0 COMMUNITY TRANSPORT ACTION ATION; TAXI NONEMERGE A0100 [facility] NCY 0 COMMUNITY TRANSPORT ACTION ATION; TAXI DAY CARE S5100 [facility] 0 N ACTIVE N ACTIVE ADULT; DAY CENT DAY CENT PER 15 MINUTES DAY CARE S5100 [facility] 0 N ACTIVE N ACTIVE ADULT; DAY CENT DAY CENT PER 15 MINUTES NONEMERGE A0100 [facility] NCY 0 COMMUNITY TRANSPORT ACTION ATION; TAXI NONEMERGE A0100 [facility] NCY 0 COMMUNITY TRANSPORT ACTION ATION; TAXI DAY CARE S5100 [facility] 0 N ACTIVE N ACTIVE ADULT; DAY CENT DAY CENT PER 15 MINUTES DAY CARE S5100 [facility] 0 N ACTIVE N ACTIVE ADULT; DAY CENT DAY CENT PER 15 MINUTES NONEMERGE A0100 [facility] NCY 0 COMMUNITY TRANSPORT ACTION ATION; TAXI COLLECTIO 10722 RINALDINI RINALDINI N VENOUS 0 LACEY LACEY BLOOD VENIPUNCT URE DAY CARE S5100 [facility] 0 N ACTIVE N ACTIVE ADULT; DAY CENT DAY CENT PER 15 MINUTES NONEMERGE A0100 [facility] NC[facility] 0 COMMUNITY TRANSPORT ACTION ATION; TAXI NONEMERGE A0100 [facility] NCY 0 COMMUNITY TRANSPORT ACTION ATION; TAXI DAY CARE S5100 [facility] 0 N ACTIVE N ACTIVE ADULT; DAY CENT DAY CENT PER 15 MINUTES RADEX 22271 [facility] [place] 0 [place] COMPLETE ORTHOPAED MINIMUM 3 [facility] VIEWS DAY CARE S5100 [facility] 0 N ACTIVE N ACTIVE ADULT; DAY CENT DAY CENT PER 15 MINUTES NONEMERGE A0100 [facility] NC[facility] 0 COMMUNITY TRANSPORT ACTION ATION; TAXI NONEMERGE A0100 [facility] NCY 0 COMMUNITY TRANSPORT ACTION ATION; TAXI DAY CARE S5100 [facility] 0 N ACTIVE N ACTIVE ADULT; DAY CENT DAY CENT PER 15 MINUTES DAY CARE S5100 [facility] 0 N ACTIVE N ACTIVE ADULT; DAY CENT DAY CENT PER 15 MINUTES NONEMERGE A0100 [facility] NCY 0 COMMUNITY TRANSPORT ACTION ATION; TAXI NONEMERGE A0100 [facility] NCY 0 COMMUNITY TRANSPORT ACTION ATION; TAXI O2 CONC 1 E1390 JANAE JANAE DEL PORT 0 HOME MED HOME MED 85%/>02 EQUIP. L EQUIP. L CONC AT [facility] FLW RATE PRTBLE E0431 JANAE JANAE GASEOUS 0 HOME MED HOME MED O2 SYS EQUIP. L EQUIP. L RENT; FLWMTR HUMIDFR&M ASK DAY CARE S5100 [facility] 0 N ACTIVE N ACTIVE ADULT; DAY CENT DAY CENT PER 15 MINUTES NONEMERGE A0130 [facility] NCY 0 COMMUNITY - TRANSPORT ACTION ATION: JOSÉ MANUEL CORTEZ DAY CARE S5100 [facility] 0 N ACTIVE N ACTIVE ADULT; DAY CENT DAY CENT PER 15 MINUTES DAY CARE S5100 [facility] 0 N ACTIVE N ACTIVE ADULT; DAY CENT DAY CENT PER 15 MINUTES NONEMERGE A0130 [facility] NCY 0 COMMUNITY - TRANSPORT ACTION ATION: [facility] A[facility] NCY 0 COMMUNITY - TRANSPORT ACTION ATION: JOSÉ MANUEL CORTEZ DAY CARE S5100 [facility] 0 N ACTIVE N ACTIVE ADULT; DAY CENT DAY CENT PER 15 MINUTES DAY CARE S5100 [facility] 0 N ACTIVE N ACTIVE ADULT; DAY CENT DAY CENT PER 15 MINUTES NONEMERGE A0130 [facility] NCY 0 COMMUNITY - TRANSPORT ACTION ATION: JOSÉ MANUEL CORTEZ NONEMERGE A0130 [facility] NCY 0 COMMUNITY - TRANSPORT ACTION ATION: JOSÉ MANUEL CORTEZ DAY CARE S5100 [facility] 0 N ACTIVE N ACTIVE ADULT; DAY CENT DAY CENT PER 15 MINUTES DAY CARE S5100 [facility] 0 N ACTIVE N ACTIVE ADULT; DAY CENT DAY CENT PER 15 MINUTES NONEMERGE A0130 [facility] NCY 0 COMMUNITY - TRANSPORT ACTION ATION: JOSÉ MANUEL CORTEZ NONEMERGE A0130 [facility] NCY 0 COMMUNITY - TRANSPORT ACTION ATION: JOSÉ MANUEL CORTEZ DAY CARE S5100 [facility] 0 N ACTIVE N ACTIVE ADULT; DAY CENT DAY CENT PER 15 MINUTES DAY CARE S5100 [facility] 0 N ACTIVE N ACTIVE ADULT; DAY CENT DAY CENT PER 15 MINUTES NONEMERGE A0130 [facility] NCY 0 COMMUNITY - TRANSPORT ACTION ATION: JOSÉ MANUEL CORTEZ NONEMERGE A0130 [facility] NCY 0 COMMUNITY - TRANSPORT ACTION ATION: JOSÉ MANUEL CORTEZ DAY CARE S5100 [facility] 0 N ACTIVE N ACTIVE ADULT; DAY CENT DAY CENT PER 15 MINUTES WALKER E0143 JANAE JANAE FOLDING 0 HOME MED HOME MED WHEELED EQUIP. L EQUIP. L ADJUSTABL E/FIXED HEIGHT RADEX 73849 [place] NERIS[place] ANKLE 0 MEDICAL ALE COMPLETE IMAGING MINIMUM 3 ASS VIEWS RADIOLOGI 43168 SUSAN DAVIS C 0 [facility] EXAMINATI INC INC ON ANKLE 2 VIEWS NONEMERGE A0130 [facility] [place] NCY 0 COMMUNITY [place] TRANSPORT ACTION COM ACTI ATION: JOSÉ MANUEL HERNANDEZGE A0130 [facility]I-CAB NCY 0 COMMUNITY - TRANSPORT ACTION ATION: JOSÉ MANUEL CORTEZ NONEMERGE A0130 [facility] NCY 0 COMMUNITY - TRANSPORT ACTION ATION: JOSÉ MANUEL CORTEZ PRTBLE E0431 JANAE CARDOSO GASEOUS 0 HOME MED HOME MED O2 SYS EQUIP. L EQUIP. L RENT; FLWMTR HUMIDFR&M ASK O2 CONC 1 E1390 [facility]E CARDOSO DEL [place] 0 HOME MED HOME MED 85%/>02 EQUIP. L EQUIP. L CONC AT [facility] FLW RATE BLOOD [id number] [facility] COUNT 0 MED LAB MED LAB COMPLETE AUTO&[place] [address] [facility] THYROID 0 MED LAB MED LAB STIMULATI NG HORMONE TSH PROTHROMB 54691 [facility] IN TIME 0 MED LAB MED LAB COMPREHEN 31441 [facility] SIVE 0 MED LAB MED LAB METABOLIC PANEL DRUG 50663 [facility] ASSAY 0 MED LAB MED LAB VALPROIC DIPROPYLA CETIC ACID TOTAL RADEX 85776 [facility] ANKLE 0 CO CO [facility] MINIMUM 3 VIEWS NONEMERGE A0130 [facility] MEDI-CAB NCY 0 COMMUNITY - TRANSPORT ACTION ATION: JOSÉ MANUEL CORTEZ NONEMERGE A0130 [facility] MEDI-CAB NCY 0 COMMUNITY - TRANSPORT ACTION ATION: JOSÉ MANUEL CORTEZ DAY CARE S5100 [facility] 0 N ACTIVE N ACTIVE ADULT; DAY CENT DAY CENT PER 15 MINUTES DAY CARE S5100 [facility] 0 N ACTIVE N ACTIVE ADULT; DAY CENT DAY CENT PER 15 MINUTES NONEMERGE A0130 [facility] MEDI-CAB NCY 0 COMMUNITY - TRANSPORT ACTION ATION: JOSÉ MANUEL CORTEZ NONEMERGE A0130 [facility] MED[facility]-CAB NCY 0 COMMUNITY - TRANSPORT ACTION ATION: JOSÉ MANUEL CORTEZ DAY CARE S5100 [facility] 0 N ACTIVE N ACTIVE ADULT; DAY CENT DAY CENT PER 15 MINUTES DAY CARE S5100 [facility] 0 N ACTIVE N ACTIVE ADULT; DAY CENT DAY CENT PER 15 MINUTES NONEMERGE A0130 [facility] NCY 0 COMMUNITY - TRANSPORT ACTION ATION: JOSÉ MANUEL SAAVEDRA 41227 [facility] ANKLE 0 [facility] MINIMUM 3 VIEWS BLOOD 40972 [facility] 0 [facility] AUTOMATED PROTHROMB 10820 [facility] IN TIME 0 [facility] BASIC 28029 [facility] METABOLIC 0 [facility] 46456 [facility] DISCHARGE 0 HEART DAY SPEC MANAGEMEN T 30 MIN/< SBSQ 81753 [facility] 0 HEART CARE/DAY SPEC 25 MINUTES PROTHROMB 11845 [facility] IN TIME 0 [facility] PROTHROMB 17527 [facility] TIME [facility] BLOOD 41297 [facility] COUNT 0 [facility]P AUTOMATED SBSQ 62380 [facility] 0 HEART CARE/DAY SPEC 25 MINUTES BASIC 50181 [facility] METABOLIC 0 [facility] 50403 [facility] METABOLIC 0 [facility] RADIOLOGI 74460 [facility] CROW[facility] C 0 RADIOLOGY EXAMINATI ASSOC ON CHEST SING[place] V[place] FRONTAL SBSQ 62463 [facility] 0 HEART CARE/DAY SPEC 25 MINUTES ARTIFICIA 8945 [facility] L 0 [facility] [address] [facility] THYROID 0 [facility] STIMULATI [facility] HOSP NG HORMONE TSH BLOOD 24451 [facility] COUNT 0 [facility] [place] [address] [facility] FREE 0 [facility] THYROXINE [facility] HOSP PROTHROMB 43323 [facility] IN TIME 0 [facility] ECHO 73958 [facility] TTHRC R-T 0 [facility] 2D [facility] HOSP W/WOM-MOD E COMPL SPEC&COLR D IIV3 06164 [facility] VACCINE 0 [facility] SPLIT [facility] HOSP VIRUS 0.5 ML DOSAGE IM USE URINALYSI 26109 NEW NEW S 0 [facility] IC ONLY RADEX 36555 NEW NEW ANKLE 0 [facility] COMPLETE [facility] MED CTR MINIMUM 3 VIEWS RADIOLOGI 65080 NEW NEW C EXAM 0 [facility] KNEE [facility] MED CTR COMPLETE 4/MORE VIEWS CT 07391 NEW NEW CERVICAL 0 [facility] SPINE W/O MED CTR MED CTR CONTRAST MATERIAL RADEX 73965 NEW NEW SHOULDER 0 [facility] HORIZONS 1 VIEW MED CTR MED CTR RADIOLOGI 65653 NEW NEW C 0 [facility] H[facility]IZ[facility] EXAMINATI MED CTR MED CTR ON PELVIS 1/2 VIEWS COMPREHEN 18764 NEW NEW SIVE 0 [facility] METABOLIC MED CTR MED CTR PANEL URNLS DIP 05036 NEW NEW 0 [facility] STICK/TAB MED CTR MED CTR LET RGNT AUTO W/O MICROSCOP Y RADEX 57176 NEW NEW WRIST 0 [facility] COMPLETE MED CTR MED CTR MINIMUM 3 VIEWS CREATINE 78633 NEW NEW KINASE 0 [facility] [place] [address] NEW NEW HEAD/BRAI 0 [facility]IZ[facility] N W/O [place] [address] NEW NEW MAGNESIUM 0 [facility] H[facility]IZONS MED CTR MED CTR ECG 42291 CENTRAL CENTRAL ROUTINE 0 TEMPLE TEMPLE ECG HOSP HOSP W/LEAST 12 LDS TRCG ONLY W/O I&R PROTHROMB 26617 NEW NEW IN TIME 0 [facility]IZONS HORIZONS MED CTR MED CTR INITIAL 11168 [facility] 0 HEART CARE/DAY SPEC 70 MINUTES GROUND A0425 TRACY MOLINA MILEAGE 0 [facility] PER LIFE LIFE STATUTE SQUAD SQUAD MILE BLOOD 08086 NEW NEW COUNT 0 [facility] COMPLETE MED CTR MED CTR AUTO&AUTO DIFRNTL WBC COLLECTIO 58052 NEW NEW N VENOUS 0 [facility] BLOOD MED [place] [address] NEW NEW TROPONIN 0 [facility] QUANTITAT MED CTR MED CTR JOSE ALFREDO NONINVASI 26576 NEW NEW VE 0 [facility] EAR/PULSE MED CTR MED CTR OXIMETRY SINGLE DETER SUSCEPTIB 52663 NEW NEW LTY STDY 0 [facility] ANTIMICRB MED CTR MED CTR IAL MICRO/AGA R DILUTJ SBSQ 04559 NEW [facility] 0 HORIZONS GLORIA CARE/DAY MEDICALCE 35 NTER MINUTES AMB A0427 TRACY TRACY SERVICE 0 [facility] ALS LIFE LIFE EMERGENCY SQUAD SQUAD TRANSPORT LEVEL 1 CULTURE 44166 NEW NEW BACTERIAL 0 [facility] MED CTR MED CTR QUANTTATI VE COLONY COUNT URINE THROMBOPL 05046 NEW NEW ASTIN 0 [facility] TIME MED CTR MED CTR PARTIAL PLASMA/WH OLE BLOOD CUL BACT 07336 NEW NEW AEROBIC 0 [facility] ADDL MED CTR MED CTR METHS DEFINITIV E EA ISOL CRITICAL 73212 NEW [facility] CARE 0 HORIZONS GLORIA ILL/INJUR MEDICALCE ED NTER PATIENT INIT 30-74 MIN RADIOLOGI 88503 NEW NEW C 0 HORIZONS HORIZONS EXAMINATI MED CTR MED CTR ON CHEST SINGLE VIEW FRONTAL AMB A0422 TRACY MOLINA OXYGEN&O2 0 [facility] SUPPLIES LIFE LIFE LIFE SQUAD SQUAD SUSTAININ G SITUATION BASIC 79985 NEW NEW METABOLIC 0 [facility]IZONS PANEL MED CTR MED CTR CALCIUM TOTAL BLOOD 95773 NEW NEW COUNT 0 [facility]IZONS HORIZONS SMEAR MED CTR MED CTR MCRSCP W/MNL DIFRNTL WBC COUNT AMB A0422 TRACY MOLINA OXYGEN&O2 0 [facility] SUPPLIES LIFE LIFE LIFE SQUAD SQUAD SUSTAININ G SITUATION RADIOLOGI 07650 [facility] GELORMINI C 0 RADIOLOGY ANDREW EXAMINATI INC ON KNEE 1/2 VIEWS AMB A0427 TRACY MOLINA SERVICE 0 [facility] ALS LIFE LIFE EMERGENCY SQUAD SQUAD TRANSPORT LEVEL 1 GROUND A0425 TRACY MOLINA MILEAGE 0 [facility] PER LIFE [place] [address] [facility] GELORMINI HEAD/BRAI 0 RADIOLOGY ANDREW N W/O INC CONTRAST MATERIAL RADEX 62640 [facility] GELORMINI WRIST 0 RADIOLOGY ANDREW COMPLETE INC MINIMUM 3 VIEWS RADIOLOGI 31601 [facility] GELORMINI C 0 RADIOLOGY ANDREW EXAMINATI INC ON [place]ELVIS 1/[address] [place] [address] F[facility] GELORMINI CERVICAL 0 RADIOLOGY ANDREW SPINE W/O INC CONTRAST MATERIAL RADEX 81137 [facility] GELORMINI ANKLE 0 RADIOLOGY ANDREW COMPLETE INC MINIMUM 3 VIEWS DAY CARE S5100 [facility] SERVICES 0 N ACTIVE N ACTIVE ADULT; DAY CENT DAY CENT PER 15 MINUTES NONEMERGE A0130 [facility] MEDI-CAB NCY 0 COMMUNITY - TRANSPORT ACTION ATION: JOSÉ MANUEL GONZALES 83933 KENNEDY BENAVIDES N VENOUS 0 CO CO BLOOD [facility] VENIPUNCT URE BLOOD 12034 KENNEDY BENAVIDES COUNT 0 CO CO COMPLETE [facility] AUTO&AUTO DIFRNTL WBC MAX 10721 MILY FARLEY BREATHING 0 CLINIC ZULY CAPACITY PSC MAXIMAL VOLUNTARY VENTJ ECG 45057 KENNEDY BENAVIDES ROUTINE 0 CO CO ECG HOSPITAL HOSPITAL W/LEAST 12 LDS TRCG ONLY W/O I&R RADIOLOGI 92988 KENNEDY Sheikh EXAM 0 CO CO CHEST 2 HOSPITAL HOSPITAL VIEWS FRONTAL&L ATERAL ECG 00681 BRAYAN SCHMIDT ROUTINE 0 LACEY LACEY ECG W/LEAST 12 LDS I&R ONLY BASIC 22246 KENNEDY BENAVIDES METABOLIC 0 CO CO PANEL HOSPITAL HOSPITAL CALCIUM TOTAL O2 CONC 1 E1390 JANAE CARDOSO DEL PORT 0 HOME MED HOME MED 85%/>02 EQUIP. L EQUIP. L CONC AT [facility] FLW RATE PRTBLE E0431 JANAE JANAE GASEOUS 0 HOME MED HOME MED O2 SYS EQUIP. L EQUIP. L RENT; FLWMTR HUMIDFR&M ASK RADIOLOGI 02906 [facility] VICTOR C EXAM 0 SUSI CHEST 2 RADIOLOGY VIEWS ASSOCIAT FRONTAL&L [facility] 21157 [facility] DISCHARGE 0 LACEY LACEY DAY MANAGEMEN T 30 MIN/< SBSQ 79559 [facility] 0 LACEY LACEY CARE/DAY 25 MINUTES RADIOLOGI 10816 RED BUD VICTOR C 0 SUSI EXAMINATI RADIOLOGY ON CHEST ASSOCIAT [place] FRONTAL ECG 49609 [facility] ROUTINE 0 LACEY LACEY ECG W/LEAST 12 LDS I&R ONLY INITIAL 45250 [facility] 0 LACEY LACEY CARE/DAY 50 MINUTES HOSPITAL 66450 [place] AVTAR DISCHARGE 0 MEDICAL JACQUELINE DAY SERV MANAGEMEN FOUNDATIO T 30 MIN/< DEVELOPME 24440 [facility] NT OF 0 [facility] CO[facility]IVE [facility] SKILLS H[facility]P HOSP EACH 15 MINUTES THERAPEUT 38290 [facility] ACTVITY 0 [place] DIRECT PT REHAB REHAB CONTACT HOSP HOSP EACH 15 MIN PHYSICAL 60351 [facility] THERAPY 0 [facility] [facility] EVALUATIO REHAB REHAB N HOSP HOSP THERAPEUT 20485 [facility] IC PX 1/> 0 [place] AREAS REHAB REHAB EACH 15 HOSP HOSP MIN EXERCISES THERAPEUT 45412 [facility] ACTVITY 0 [place] DIRECT PT REHAB REHAB CONTACT HOSP HOSP EACH 15 MIN DEVELOPME 05046 [facility] NT OF 0 [facility] [facility] COGNITIVE [facility] REHAB SKILLS HOSP HOSP EACH 15 MINUTES DEVELOPME 24887 [facility] NT OF 0 [facility] SKILLS [facility] [place] [address] [facility] 1/> AREAS 0 [place] EA 15 REHAB REHAB MIN GAIT HOSP HOSP TRAINJ W/STAIR PRTBLE E0431 JANAE JANAE GASEOUS 0 HOME MED HOME MED O2 SYS EQUIP. L EQUIP. L RENT; FLWMTR HUMIDFR&M ASK THERAPEUT 90639 [facility] IC PX 1/> 0 [facility] EACH 15 HOSP HOSP MIN EXERCISES O2 CONC 1 E1390 JANAE [facility] 0 HOME MED HOME MED 85%/>02 EQUIP. L EQUIP. L CONC AT [facility] FLW RATE SBSQ 35477 [facility] 0 MEDICAL GUILHERME CARE/DAY SERV [address] [facility] 0 MEDICAL GUILHERME CARE/DAY SERV [address]OUNDATIO [address]ES S[address] [facility] 0 MEDICAL JACQUELINE CARE/DAY SERV 25 FOUNDATIO MINUTES THERAPEUT 86001 [facility] [place] PX 1/> 0 [facility] EACH 15 HOSP HOSP MIN EXERCISES DEVELOPME 49906 [facility] NT OF 0 [facility] [facility] COGNITIVE [facility] REHAB SKILLS HOSP HOSP EACH 15 MINUTES DEVELOPME 62268 [facility] NT OF 0 [facility] [facility] COGNITIVE [facility] REHAB SKILLS HOSP HOSP [place]ACH 15 [place] [address] [facility] 1/> AREAS 0 [place] EA 15 REHAB REHAB MIN GAIT HOSP HOSP TRAINJ W/STAIR THERAPEUT 56462 [facility] ACTVITY 0 [place] DIRECT PT REHAB REHAB CONTACT HOSP HOSP EACH 15 MIN THERAPEUT 99106 [facility] [place] PX 1/> 0 [place] ARE[facility] REHAB REHAB EACH 15 HOSP HOSP MIN EXERCISES SBSQ 89529 [facility] 0 MEDICAL JACQUELINE CARE/DAY SERV 25 FOUNDATIO MINUTES TX SPEECH 86758 [facility] LANGUAGE 0 [facility] VOICE REHAB REHAB COMMJ HOSP HOSP AUDITRY 2/>[place] [address] [facility] SWALLOWIN 0 [place] G REHAB REHAB DYSFUNCTI HOSP HOSP ON&/[facility] [address] [place] [address] MEDICAL JACQUELINE CARE/DAY SERV 25 FOUNDATIO MINUTES THERAPEUT 62735 [facility] IC PX 1/> 0 [place] ARE[facility] REHAB REHAB EACH 15 HOSP HOSP MIN EXERCISES THERAPEUT 55871 [facility] ACTVITY 0 [place] DIRECT PT REHAB REHAB CONTACT HOSP HOSP [place]ACH 15 [place] [address] C[facility] 1/> AREAS 0 [facility] EA 15 REHAB REHAB MIN GAIT HOSP HOSP TRAINJ W/STAIR DEVELOPME 14805 [facility] NT OF 0 [facility] COGNITIVE REHAB REHAB SKILLS HOSP HOSP [place]ACH 15 [place] [address] [facility] 1/> AREAS 0 [facility] EA 15 REHAB REHAB MIN GAIT HOSP HOSP TRAINJ W/STAIR THERAPEUT 81526 [facility] IC PX 1/> 0 [facility] AREAS REHAB REHAB EACH 15 HOSP HOSP MIN EXERCISES EVAL 78537 [facility] SPEECH 0 [facility] LANG REHAB REHAB VOICE HOSP HOSP COMMUNJ &/SCHOOL OCCUPATIONAL THERAPIST Y PROC SBSQ 63810 [facility] 0 MEDICAL JACQUELINE CARE/DAY SERV [address]ATIO [address]ES SBS[address] [facility] 0 MEDICAL JACQUELINE CARE/DAY SERV 25 FOUNDATIO MINUTES THERAPEUT 01794 [facility] IC PX 1/> 0 [facility] AREAS REHAB REHAB EACH 15 [place] [address] [facility] 1/> AREAS 0 [facility] EACH 15 REHAB REHAB MIN [place] [address] C[facility] 1/> AREAS 0 [facility] EA 15 REHAB REHAB MIN GAIT HOSP HOSP TRAINJ W/STAIR SBSQ 20795 [facility] 0 MEDICAL JACQUELINE CARE/DAY SERV [address]OUNDATIO [address]ES SBS[address] [facility] 0 MEDICAL JACQUELINE CARE/DAY SERV 25 FOUNDATIO MINUTES THERAPEUT 30332 [facility] ACTVITY 0 [facility] DIRECT PT REHAB REHAB CONTACT HOSP HOSP EACH 15 MIN PHYSICAL 64817 [facility] THERAPY 0 [facility] EVALUATIO REHAB REHAB N HOSP HOSP PROTHROMB 97034 [facility] IN TIME [address] [place] [address] [place] [address] INORGANIC DUP-SCAN 33445 [place] MINION XTR VEINS 0 MEDICAL SHIRAZ SERV UNILATERA FOUNDATIO L/LIMITED STUDY ECG 09586 [facility] UNIVERS[facility] ROUTINE 0 Y Y ECG HOSPITAL HOSPITAL W/LEAST 12 LDS TRCG ONLY W/O I&R AMBULANCE A0429 [facility] MERCURY SERVICE 0 AMBULANCE AMBULANCE BLS SERVICE SERVICE EMERGENCY TRANSPORT GROUND A0425 [facility] MERCURY MILEAGE 0 AMBULANCE AMBULANCE PER SERVICE SERVICE STATUTE MILE BLOOD 17827 [facility] COUNT 0 Y Y [facility]PLETE [place] [address] [facility] MAGNESIUM 0 Y Y HOSPITAL HOSPITAL ECG 41082 [place] IBETH C ROUTINE 0 MEDICAL ECG SERV W/LEAST FOUNDATIO 12 LDS I&R ONLY BASIC 59738 [facility] METABOLIC 0 Y Y PANEL [facility] [address] UN[facility] UNIVERSIT 1/> AREAS 0 Y Y EA 15 HOSPITAL HOSPITAL MIN GAIT TRAINJ W/STAIR THERAPEUT 69982 [facility] ACTVITY 0 Y Y DIRECT PT HOSPITAL HOSPITAL CONTACT EACH 15 MIN PROTHROMB 64111 [facility] IN TIME 0 Y Y HOSPITAL HOSPITAL PROTHROMB 70657 [facility] IN TIME 0 [place] [address] [facility] UN[facility]ERS[facility] PHOSPHORU 0 Y Y S HOSPITAL HOSPITAL INORGANIC INITIAL 57758 [facility] 0 MEDICAL KER RAN CARE/DAY SERV 70 FOUNDATIO MINUTES BLOOD 36676 [facility] UNIV[facility] COUNT 0 Y Y COMPLETE [place] [address] UN[facility] UNIVERSIT MAGNESIUM 0 Y Y HOSPITAL HOSPITAL BASIC 28148 [facility] METABOLIC 0 Y Y PANEL HOSPITAL HOSPITAL CALCIUM TOTAL RADIOLOGI 69913 [place] PULMANO C 0 MEDICAL SIRENA EXAMINATI SERV ON CHEST FOUNDATIO [place] FRONTAL BASIC 97861 [facility]IT METABOLIC 0 Y Y [facility]EL [facility] [place] [address] [facility]IT [facility] MAGNESIUM 0 Y Y HOSPITAL HOSPITAL CREATINE 05683 [facility] KINASE 0 Y Y TOTAL HOSPITAL HOSPITAL CREATINE 69254 [facility] KINASE MB 0 Y Y [place] [address] [facility]IT UNIVERSIT TROPONIN 0 Y Y QUANTITAT HOSPITAL [facility] JOSE ALFREDO BLOOD 60684 [facility] UNIVERSIT COUNT 0 Y Y [facility] [place] [address] [facility]ERS UNIVERSIT PHOSPHORU 0 Y Y S HOSPITAL HOSPITAL INORGANIC PROTHROMB 05153 [facility] IN TIME 0 [place] [address] UNIVERSIT UNIVERSIT PHOSPHORU 0 Y Y S HOSPITAL HOSPITAL INORGANIC ECG 80091 [facility] ROUTINE 0 Y Y ECG HOSPITAL HOSPITAL W/LEAST 12 LDS TRCG ONLY W/O I&R BLOOD 83006 [facility] UNIV[facility] COUNT 0 Y Y COMPLETE [place] [address] UNIVERS UNIVERSIT 1/> AREAS 0 Y Y EA 15 HOSPITAL HOSPITAL MIN GAIT TRAINJ W/STAIR THERAPEUT 48602 [facility] ACTVITY 0 Y Y DIRECT PT HOSPITAL HOSPITAL CONTACT [place]ACH 15 [place] [address] [facility] TROPONIN 0 Y Y QUANTITAT [facility] JOSE ALFREDO CREATINE 51495 [facility] KINASE MB 0 Y Y [place] [address] UNIVERSIT UNIVERSIT MAGNESIUM 0 Y Y HOSPITAL HOSPITAL ECG 84214 [place] BLISS ROUTINE 0 MEDICAL NAN ECG SERV W/LEAST FOUNDATIO 12 LDS I&R ONLY BASIC 08321 UN[facility]ERSIT UNIVERSIT METABOLIC 0 Y Y PANEL HOSPITAL HOSPITAL CALCIUM TOTAL RADIOLOGI 29331 [place] ABIGAIL REGLA C 0 MEDICAL EXAMINATI SERV ON CHEST FOUNDATIO S[place] FRONTAL PHYSICAL 53550 [facility] THERAPY 0 Y Y RE-EVALUA [facility] TION RADIOLOGI 98703 [place] HILLMAN MJ C 0 MEDICAL EXAMINATI SERV ON CHEST FOUNDATIO S[place] FRONTAL BASIC 36624 [facility]IT UNIVERSIT METABOLIC 0 Y Y [facility] [place] [address] UNIVERSIT UNIVERSIT MAGNESIUM 0 Y Y HOSPITAL HOSPITAL BLOOD 26297 [facility]IT UNIVERSIT COUNT 0 Y Y COMPLETE HOSPITAL HOSPITAL AUTOMATED ECG 11592 UN[facility]ERSIT UNIVERSIT ROUTINE 0 Y Y ECG HOSPITAL HOSPITAL W/LEAST 12 LDS TRCG ONLY W/O I&[place] [address] [facility] PHOSPHORU 0 Y Y [place] [address] [facility] PHOSPHORU 0 Y Y S HOSPITAL HOSPITAL INORGANIC BLOOD 53900 [facility] COUNT 0 Y Y COMPLETE [facility] [place] [address] [facility] MAGNESIUM 0 Y Y HOSPITAL HOSPITAL GLUC BLD 26095 [facility] GLUC MNTR 0 Y Y DEV HOSPITAL HOSPITAL CLEARED FDA SPEC HOME USE RADIOLOGI 78625 [place] HILLMAN MJ C 0 MEDICAL EXAMINATI SERV ON CHEST FOUNDATIO [place] FRONTAL RADIOLOGI 17418 [place] ABIGAIL REGLA C 0 MEDICAL EXAMINATI SERV ON CHEST FOUNDATIO [place] FRONTAL BASIC 34755 [facility] METABOLIC 0 Y Y PANEL [facility] CALCIUM TOTAL GLUC BLD 50318 [facility] GLUC MNTR 0 Y Y DEV HOSPITAL HOSPITAL CLEARED FDA SPEC HOME USE ECG 56087 [facility] ROUTINE 0 MEDICAL NAN ECG SERV W/LEAST FOUNDATIO 12 LDS I&[place] [address] [facility] MAGNESIUM 0 Y Y HOSPITAL HOSPITAL INSJ PM 95793 [facility] FLUOR&RAD 0 MEDICAL IOGRAPY SERV RS&I FOUNDATIO BLOOD 80829 [facility] COUNT 0 Y Y COMPLETE [facility] AUTOMATED SBSQ 34118 [facility] 0 MEDICAL JAYLYN CARE/DAY SERV 35 FOUNDATIO MINUTES INS 32166 [facility] NEW/RPLCM 0 MEDICAL T PRM PM SERV W/TRANSV FOUNDATIO ELTRD ATRIAL&VE NT PREALBUMI 65332 [facility] N 0 [place] [address] [facility] PHOSPHORU 0 Y Y S HOSPITAL [facility] INORGANIC POTASSIUM 75719 [facility] SERUM 0 Y Y PLASMA/[facility] OLE BLOOD PROTHROMB 84187 [facility] IN TIME 0 Y Y HOSPITAL HOSPITAL ECG 75802 [facility] ROUTINE 0 Y Y ECG [facility] HOSPITAL W/LEAST 12 LDS TRCG ONLY W/O I&[place] [address] [facility] PHOSPHORU 0 Y Y S HOSPITAL HOSPITAL INORGANIC INITIAL 04497 [facility] HOSPITAL 0 MEDICAL CARE/DAY SERV 70 FOUNDATIO MINUTES BLOOD 16637 [facility] UNIVERSIT COUNT 0 Y Y COMPLETE [place] [address] [facility] UNIVERSIT MAGNESIUM 0 Y Y HOSPITAL HOSPITAL GASES 96655 [facility] BLOOD PH 0 Y Y DIRECT HOSPITAL HOSPITAL WILLEM XCPT PULSE OXIMITRY GLUC BLD 53895 [facility] GLUC MNTR 0 Y Y DEV HOSPITAL HOSPITAL CLEARED FDA SPEC HOME USE BASIC 94345 [facility] METABOLIC 0 Y Y PANEL HOSPITAL HOSPITAL CALCIUM TOTAL RADIOLOGI 32544 [place] KEANE C 0 MEDICAL KIRILL EXAMINATI SERV ON CHEST FOUNDATIO [place] FRONTAL CRITICAL 17070 [place] [facility] 0 MEDICAL EUGEN E ILL/INJUR SERV ED FOUNDATIO PATIENT INIT 30-74 MIN CRITICAL 66479 [place] [facility] 0 MEDICAL EUGEN E ILL/INJUR SERV ED FOUNDATIO PATIENT INIT 30-74 MIN RADIOLOGI 27003 [place] PULMANO C 0 MEDICAL SIRENA EXAMINATI SERV ON CHEST FOUNDATIO [place] FRONTAL BASIC 10068 [facility] METABOLIC 0 Y Y PANEL HOSPITAL HOSPITAL CALCIUM TOTAL GLUC BLD 68936 [facility] UNIVERS GLUC MNTR 0 Y Y DEV HOSPITAL HOSPITAL [place] [address] [facility] UNIVERSIT MAGNESIUM 0 Y Y HOSPITAL HOSPITAL GASES 07297 [facility] BLOOD PH 0 Y Y DIRECT HOSPITAL HOSPITAL WILLEM XCPT PULSE OXIMITRY CONNECTIV C1763 [facility] UNIVERSIT E TISSUE 0 Y Y NON-[facility]UMAN HOSPITAL HOSPITAL CATHETER C1729 [facility] UNIVERS DRAINAGE 0 Y Y HOSPITAL HOSPITAL BLOOD 48978 [facility] COUNT 0 Y Y COMPLETE HOSPITAL HOSPITAL AUTOMATED PHYSICAL 40122 [facility] THERAPY 0 Y Y EVALUATIO [facility] N ANTIBODY 86938 [facility] IDENTIFIC 0 Y Y ATION [facility] [place] [address] [facility] PHOSPHORU 0 Y Y [place] [address] [facility] PHOSPHORU 0 Y Y S HOSPITAL HOSPITAL INORGANIC POTASSIUM 29381 [facility] SERUM 0 Y Y PLASMA/WH HOSPITAL HOSPITAL OLE BLOOD ECG 14029 [facility] H[facility] HOSPITAL W/LEAST 12 LDS TRCG ONLY W/O I&R BLOOD 81993 [facility] COUNT 0 Y Y COMPLETE [facility] AUTOMATED CATHETER C1729 [facility] DRAINAGE 0 Y Y HOSPITAL HOSPITAL BLOOD 27662 [facility] COUNT 0 Y Y HEMATOCRI [facility] T GASES 66013 [facility] BLOOD PH 0 Y Y DIRECT [facility] [place] [address] [facility] MAGNESIUM 0 Y Y HOSPITAL HOSPITAL GLUC BLD 50698 [facility] GLUC MNTR 0 Y Y DEV [facility]PITAL CLEARED FDA SPEC HOME USE HEMOGLOBI 47141 [facility] N 0 Y Y METHEMOGL [facility] OBIN QUANTITAT JOSE ALFREDO URNLS DIP 23336 [facility] 0 Y Y STICK/TAB HOSPITAL HOSPITAL LET REAGENT AUTO MICROSCOP Y ECG 38640 [place] BLISS ROUTINE 0 MEDICAL NAN ECG SERV W/LEAST FOUNDATIO 12 LDS I&R ONLY BASIC 95577 [facility] METABOLIC 0 Y Y PANEL [facility] CALCIUM TOTAL RADIOLOGI 97448 [place] LINO C 0 MEDICAL KIRILL EXAMINATI SERV ON CHEST FOUNDATIO [place] FRONTAL CRITICAL 27582 [place] [facility] 0 MEDICAL EUGEN E ILL/INJUR SERV ED FOUNDATIO PATIENT INIT 30-74 MIN CRITICAL 69505 [place] [facility] 0 MEDICAL EUGEN E ILL/INJUR SERV ED FOUNDATIO PATIENT INIT 30-74 MIN SBSQ 02595 [facility] 0 MEDICAL CARE/DAY SERV 25 FOUNDATIO MINUTES CULTURE 44651 [facility] TUBERCLE/ 0 Y Y OTH HOSPITAL HOSPITAL ACID-FAST BACILLI ANY ISOL SMR PRIM 51383 [facility] SRC 0 Y Y FLUORESCE [facility] NT&/AFS BCT FNGI PARASIT TISS OSBALDO 43753 [facility] SLIDE 0 Y Y [facility] SKN/HR/NL S FNGI/ECTO PARASIT CULTURE 35763 [facility] BACTERIAL 0 Y Y ANY HOSPITAL HOSPITAL SOURCE ANAEROBIC ISO&ID CUL BACT 81820 [facility] XCPT 0 Y Y URINE HOSPITAL HOSPITAL BLOOD/STO OL AEROBIC ISOL THROMBOPL 22333 [facility] ASTIN 0 Y Y TIME HOSPITAL HOSPITAL PARTIAL PLASMA/WH OLE BLOOD RADIOLOGI 94099 [place] [facility] C 0 MEDICAL KIRILL EXAMINATI SERV ON CHEST FOUNDATIO [place] FRONTAL BASIC 96657 [facility] METABOLIC 0 Y Y PANEL [facility] CALCIUM TOTAL REVISION 3595 [facility] OF 0 Y Y CORRECTIV [facility] E PROCEDURE ON HEART ECG 68136 [place]ISS ROUTINE 0 MEDICAL NAN ECG SERV W/LEAST FOUNDATIO 12 LDS I&R ONLY SPMTRY 38143 [facility] W/VC 0 Y Y EXPIRATOR [facility] Y KARINE W/WO MXML VOL VNTJ URNLS DIP 77254 [facility] 0 Y Y STICK/TAB HOSPITAL HOSPITAL LET REAGENT AUTO MICROSCOP Y GLUC BLD 28118 [facility] GLUC MNTR 0 Y Y DEV [facility] CLEARED FDA SPEC HOME USE GLUCOSE 54246 [facility] QUANTITAT 0 Y Y JOSE ALFREDO BLOOD [facility] [place] [address] [facility] MAGNESIUM 0 Y Y HOSPITAL HOSPITAL ANES HRT 51519 [place] PERICRD 0 MEDICAL OKS SAC&GRT SERV VSLS FOUNDATIO W/BALL WINDER OXTJ >1MO PO GASES 95721 [facility] BLOOD PH 0 Y Y DIRECT HOSPITAL HOSPITAL WILLEM XCPT PULSE OXIMITRY DUPLEX 15326 [facility] SCAN 0 Y Y EXTRACRAN [facility] IAL ART COMPL BI STUDY BLOOD 05419 [facility] COUNT 0 Y Y [facility] T SMR PRIM 72463 [facility] SRC 0 Y Y GRAM/GIEM [facility] SA STAIN BCT FUNGI/KAIN L HOMOGENIZ 30031 [facility] ATION 0 Y Y TISSUE [facility] [place] [address] [facility] SURG 0 Y Y PATHOLOGY [facility] GROSS&KIRILL ROSCOPIC EXAM CATHETER C1729 [facility] DRAINAGE 0 Y Y HOSPITAL HOSPITAL CATHETER C1751 [facility] INFUS 0 Y Y INSRT [facility] PERIPHER LLY CNTRLLY/M IDLN GRAFT C1768 [facility] VASCULAR 0 Y Y [facility] BLOOD 70865 [facility] COUNT 0 Y Y COMPLETE [facility] AUTOMATED BLOOD 03483 [facility] COUNT 0 Y Y COMPLETE [facility] AUTO&AUTO DIFRNTL WBC RPLCMT 85238 [place] RAM[place], PROST 0 MEDICAL IRON AORTIC SERV VALVE FOUNDATIO OPEN XCP HOMOGRF/S TENT SODIUM 48174 [facility] SERUM 0 Y Y PLASMA OR [facility] WHOLE BLOOD ROPRTJ 89542 [place] RAMAID[place], CAB/VALVE 0 MEDICAL [facility] PX > 1 SERV MO AFTER FOUNDATIO ORIGINAL OPERJ ARTL 33398 [place] KLIM[place] CATHJ/CAN 0 MEDICAL OKS NULJ SERV MNTR/HERNANDEZ FOUNDATIO SFUSION SPX PRQ ECG 90313 [facility] ROUTINE 0 Y Y ECG [facility] W/LEAST 12 LDS TRCG ONLY W/O I&R ECHO 10010 [place] TRANSESOP 0 MEDICAL MEDICAL HAG R-T SERV SERV 2D W/PRB FOUNDATIO FOUNDATIO IMG [place] [address] [facility] PHOSPHORU 0 Y Y S [facility] INORGANIC POTASSIUM 75630 [facility] [facility] SERUM 0 Y Y PLAS[facility] OLE BLOOD PROTHROMB 90480 [facility] IN TIME 0 Y Y [facility] CULTURE 23613 [facility] FNGI 0 Y Y MOLD/YEAS [facility] T PRSMPTV OTH XCPT BLOOD IADNA S 97534 [facility] AUREUS 0 Y Y [facility] IN RESIST AMP PROBE TQ SPECIAL 18094 [facility] STAIN 0 Y Y GROUP 1 [facility] MICROORGA NISMS I&R ANTIBODY 75983 [facility] ID RBC 0 [facility] S EA PANEL EA SERUM TQ BLOOD 59569 [facility] COUNT 0 Y Y COMPLETE HOSPITAL HOSPITAL AUTO&AUTO DIFRNTL WBC ANTIBODY 33245 [facility] SCREEN 0 Y Y RBC EACH HOSPITAL HOSPITAL SERUM TECHNIQUE BLOOD 30721 [facility] TYPING 0 Y Y SEROLOGIC HOSPITAL [facility] ABO SBSQ 73506 [facility] 0 MEDICAL VEE CARE/DAY SERV 15 FOUNDATIO MINUTES THROMBOPL 92534 [facility] UN[facility]ERS ASTIN 0 Y Y TIME HOSPITAL HOSPITAL PARTIAL PLASMA/WH OLE BLOOD BLOOD 83332 [facility] TYPING 0 Y Y SEROLOGIC HOSPITAL [facility] RH (D) BLOOD 15425 [facility] TYPING 0 Y Y RBC HOSPITAL HOSPITAL ANTIGENS OTH/THN ABO/RH D EACH COMPATIBI 67552 [facility] LITY EACH 0 Y Y UNIT [facility] JUAN JOSE SBSQ 71207 [facility] 0 MEDICAL CARE/DAY SERV 25 FOUNDATIO MINUTES THROMBOPL 07265 [facility] ASTIN 0 Y Y TIME HOSPITAL HOSPITAL PARTIAL PLASMA/WH OLE BLOOD BASIC 65026 [facility] METABOLIC 0 Y Y PANEL HOSPITAL HOSPITAL CALCIUM TOTAL BLD BANK 19048 [facility] 0 MEDICAL DEN DIFFC SERV CROSS FOUNDATIO MATCH&/EV AL REP INITIAL 53021 [facility] 0 MEDICAL VEE CARE/DAY SERV 50 FOUNDATIO MINUTES BLOOD 47393 [facility] COUNT 0 Y Y COMPLETE HOSPITAL HOSPITAL AUTO&AUTO DIFRNTL WBC INITIAL 90794 [facility] 0 MEDICAL CARE/DAY SERV [address] THORAX 03277 [facility] W/O 0 Y Y CONTRAST HOSPITAL [facility] MATERIAL LIPID 64679 [facility] UN[facility]ERS PANEL 0 Y Y HOSPITAL [facility] RADIOLOGI 97861 [facility] C EXAM 0 Y Y CHEST 2 [facility] VIEWS FRONTAL&L ATERAL URNLS DIP 59999 [facility] UNIVERS 0 Y Y STICK/TAB [facility] LET REAGENT AUTO MICROSCOP Y I SI&R 75936 [facility] F/NJX PX 0 Y Y DURING HOSPITAL [facility] C-CATHJ PULM&/OR [place] [address] [facility] C-CATHJ 0 Y Y F/SLCTV C [facility] ANGRPH PROTHROMB 72193 [facility] IN TIME 0 Y Y [facility] RIGHT 07643 [facility] HEART 0 Y Y CATHETERI [facility] [place] [address] [facility] C-CATHJ 0 Y Y F/AORTOGR [facility] APY CLOSURE C1760 [facility] DEVICE 0 Y Y VASCULAR [facility] BLOOD 06868 [facility] COUNT 0 Y Y COMPLETE [facility] [place] [address] [facility]ID [facility] T[facility] BASIC 20247 [facility] METABOLIC 0 Y Y PANEL [facility] CALCIUM TOTAL GASES 87958 [facility] BLOOD O2 0 Y Y SATURCAPE [facility] N ONLY DIRECT WILLEM ILIAC&/FE G0278 [facility] M ART 0 Y Y ANGIO [facility] NONSEL AT TIME CARD CATH THROMBOPL 90581 [facility] ASTIN 0 Y Y TIME HOSPITAL [facility] PARTIAL PLASMA/WH OLE BLOOD ARTERIOGR 8847 [facility] APHY OF 0 Y Y OTHER HOSPITAL HOSPITAL INTRA-ABD OMINAL ARTERIES CORONARY 8856 [facility] ARTERIOGR 0 Y Y APHY [facility] USING TWO CATHETERS RIGHT 3721 [facility] HEART 0 Y Y CARDIAC [facility] CATHETERI ZATION AORTOGRAP 8842 [facility] HY 0 Y Y HOSPITAL HOSPITAL GUIDE C1769 [facility] WIRE 0 Y Y HOSPITAL HOSPITAL O2 CONC 1 E1390 [facility] 0 HOME MED HOME MED 85%/>02 EQUIP. EQUIP. CONC AT [facility] 71379 [facility] DISCHARGE 0 LACEY LACEY DAY MANAGEMEN T 30 MIN/< PRTBLE E0431 JANAE JANAE GASEOUS 0 HOME MED HOME MED O2 SYS EQUIP. EQUIP. RENT; [facility] HUMIDFR&M ASK SBSQ 08219 [facility] 0 LACEY LACEY CARE/DAY 25 MINUTES RADEX ABD 41703 [facility] COMPL 0 MJ AQT ABD RADIOLOGY W/S/E/D ASSOCIAT VIEWS 1 VIEW CH ECG 79172 [facility] ROUTINE 0 , CHANA , CHANA ECG W/LEAST 12 LDS I&R ONLY INITIAL 72474 [facility] 0 LACEY LACEY CARE/DAY 50 MINUTES ECHO 86695 MARLON FLETCHER TRANSESOP 0 MEDICAL HAG R-T SERV 2D W/PRB FOUNDATIO IMG ACQUISJ I&R DOP 39268 MARLON EVANGELISTA CHANCE ECHOCARD 0 MEDICAL COLOR SERV FLOW FOUNDATIO VELOCITY MAPPING DOPPLER 52741 [place] JEAN CARLOS PETEU ECHOCARD 0 MEDICAL PULSE SERV WAVE FOUNDATIO W/SPECTRA L DISPLAY O2 CONC 1 E1390 [facility] [place] 0 HOME MED HOME MED 85%/>02 EQUIP. EQUIP. CONC AT [facility] PRTBLE E0431 JANAE JANAE GASEOUS 0 HOME MED HOME MED O2 SYS EQUIP. EQUIP. RENT; [facility] HUMIDFR&M ASK ECHO 86494 [facility] TTHRC R-T 0 Y Y 2D [facility] HOSPITAL W/WOM-MOD E COMPL SPEC&COLR D CREATINE 70497 [facility] KINASE 0 Y Y TOTAL HOSPITAL HOSPITAL LIPID 99750 [facility] PANEL 0 Y Y HOSPITAL HOSPITAL COMPREHEN 98047 [facility] SIVE 0 Y Y METABOLIC HOS[facility]ITAL HOSPITAL PANEL PROTHROMB 85347 [facility] IN TIME 0 [place] [address] [facility] THYROID 0 Y Y STIMULATI [facility] NG HORMONE TSH BLOOD 16546 [facility] COUNT 0 Y Y COMPLETE [facility] AUTOMATED COLLECTIO 89564 [facility] N VENOUS 0 Y Y BLOOD [facility] [place] [address] [facility] FREE 0 Y Y THYROXINE [facility] BLOOD 90430 [facility] COUNT 0 [facility] COMPLETE AUTO&AUTO DIFRNTL WBC LIPOPROTE 78074 [facility] IN (A) 0 Y Y [facility] URNLS DIP 14144 RINALDINI RINALDINI 0 , CHANA , CHANA STICK/TAB LET RGNT AUTO W/O MICROSCOP Y PRTBLE E0431 JANAE JANAE GASEOUS 0 HOME MED HOME MED O2 SYS EQUIP. EQUIP. RENT; [facility] HUMIDFR&M ASK O2 CONC 1 E1390 [facility] [place] 0 HOME MED HOME MED 85%/>02 EQUIP. EQUIP. CONC AT [facility] O2 CONC 1 E1390 [facility] [place] 0 HOME MED HOME MED 85%/>02 EQUIP. EQUIP. CONC AT [facility] PRTBLE E0431 JANAE JANAE GASEOUS 0 HOME MED HOME MED O2 SYS EQUIP. EQUIP. RENT; [facility] HUMIDFR&M ASK LIPID 33261 [facility] PANEL 0 Y Y [facility] [place] [address] [facility] TROPONIN 0 Y Y QUANTITAT [facility] JOSE ALFREDO BLOOD 98921 [facility] COUNT 0 Y Y [facility] AUTOMATED INITIAL 16683 [facility] 0 MEDICAL , CARE/DAY SERV DEBABRATA 70 FOUNDATIO MINUTES BASIC 38780 [facility] METABOLIC 0 Y Y [facility] CALCIUM TOTAL THROMBOPL 46785 [facility] ASTIN 0 Y Y TIME HOSPITAL HOSPITAL PARTIAL PLASMA/ OLE BLOOD THROMBOPL 70385 [facility] UNIVERS ASTIN 0 Y Y TIME HOSPITAL HOSPITAL PARTIAL PLASMA/[place] B[place] [address] NEW NEW INFUSION 0 [facility] THERAPY MED CTR MED CTR PROPHYLAX IS/DX EA HOUR CRITICAL 94822 ACUTE [facility], CARE 0 CARE PERKINS ILL/INJUR [facility]ILLING [facility] PATIENT INIT 30-74 MIN BASIC 91512 [facility] METABOLIC 0 Y Y PANEL [facility] CALCIUM TOTAL 3D 71259 NEW NEW RENDERING 0 [facility] MED CTR MED CTR W/INTERP& POSTPROC DIFF WORK STATION BLOOD 83729 NEW NEW COUNT 0 [facility] SMEAR MED CTR MED CTR MCRSCP W/MNL DIFRNTL WBC COUNT AMB A0422 TRACY MOLINA OXYGEN&O2 0 [facility] SUPPLIES LIFE LIFE LIFE SQUAD SQUAD SUSTAININ G SITUATION CT THORAX 37328 [facility] 0 Y Y W/[facility] T MATERIAL AMB A0427 TRACY MOLINA SERVICE 0 [facility] ALS LIFE LIFE EMERGENCY SQUAD SQUAD TRANSPORT LEVEL 1 IV NFS 67935 NEW NEW THERAPY 0 [facility] PROPHYLAX MED CTR MED CTR IS/DX CONCURREN T NFS PROTHROMB 27663 [facility] IN TIME 0 Y Y [facility] GROUND A0425 TRACY MOLINA MILEAGE 0 [facility] PER LIFE LIFE STATUTE SQUAD SQUAD MILE COLLECTIO 76676 NEW NEW N VENOUS 0 [facility] BLOOD MED [place] [address] [facility] TROPONIN 0 Y Y [facility] JOSE ALFREDO BLOOD 24389 NEW NEW COUNT 0 [facility] COMPLETE MED CTR MED CTR AUTO&[place] [address] NEW NEW INFUSION 0 [facility] THERAPY/P MED CTR MED CTR ROPHYLAXI S /DX 1ST TO 1 HR COMPREHEN 92932 NEW NEW SIVE 0 [facility] METABOLIC MED CTR MED CTR PANEL URNLS DIP 60632 NEW NEW 0 [facility] STICK/TAB MED CTR MED CTR LET RGNT AUTO W/O MICROSCOP Y CREATINE 40607 [facility] KINASE MB 0 Y Y FRACTION [facility] ONLY CREATINE 15694 [facility] KINASE 0 Y Y TOTAL [facility] CT THORAX 24737 NEW NEW W/O 0 [facility] CONTRAST MED CTR MED CTR MATERIAL ECG 84856 [facility] ROUTINE 0 Y Y ECG [facility] W/LEAST 12 LDS TRCG ONLY W/O I&R RADIOLOGI 19958 NEW NEW C 0 [facility] EXAMINATI MED CTR MED CTR ON CHEST SINGLE VIEW FRONTAL LOCM Q9967 [facility] [phone] Y Y MG/ML [facility] IODINE CONCENTRA TION PER ML ECG 38579 Aguilar DEL CID ROUTINE 0 MEDICAL ECG SERV W/LEAST FOUNDATIO 12 LDS I&R ONLY HEPATIC 66742 [facility] FUNCTION 0 Y Y PANEL [facility] COLLECTIO 14278 [facility] VENOUS 0 , CHANA , CHANA BLOOD VENIPUNCT URE PROTHROMB 56016 [facility] IN TIME 0 [facility] 15341 [facility] DISCHARGE 0 , CHANA , CHANA DAY MANAGEMEN T > 30 MIN SBSQ 42439 [facility] 0 , CHANA , CHANA CARE/DAY 25 MINUTES ECG 44301 [facility] , CHANA , CHANA ECG W/LEAST 12 LDS I&R ONLY RADIOLOGI 42336 [facility] Aguilar [place] 0 LUPE S EXAMINATI RADIOLOGY ON CHEST SINGLE ASSOCIATE VIEW S PSC FRONTAL INITIAL 04663 [facility] 0 , CHANA , CHANA CARE/DAY 50 MINUTES PRTBLE E0431 JANAE CARDOSO GASEOUS 0 HOME MED HOME MED O2 SYS EQUIP. EQUIP. RENT; [facility] HUMIDFR&M ASK O2 CONC 1 E1390 [facility]E [facility] [place] 0 HOME MED HOME MED 85%/>02 EQUIP. EQUIP. CONC AT [facility] RATE COLLECTIO 82270 TAMILULU BRAYAN N VENOUS 0 , CHANA , CHANA BLOOD VENIPUNCT URE PROTHROMB 02807 [facility] IN TIME 0 [place] [facility] [place] [facility] PRTBLE E0431 JANAE CARDOSO GASEOUS 0 HOME MED HOME MED O2 SYS EQUIP. EQUIP. RENT; [facility] HUMIDFR&M ASK O2 CONC 1 E1390 [facility]E [facility] [place] 0 HOME MED HOME MED 85%/>02 EQUIP. EQUIP. CONC AT [facility] FL[facility] RATE DUP-SCAN 53189 [facility] 0 LUPE S RADIOLOGY UNILATERA L/LIMITED ASSOCIATE STUDY S PSC PROTHROMB 77906 NEW NEW IN TIME 0 [facility] MED CTR MED CTR COLLECTIO 06777 NEW NEW N VENOUS 0 [facility] BLOOD MED CTR MED CTR VENIPUNCT URE BLOOD 96707 NEW NEW COUNT 0 [facility] COMPLETE MED CTR MED CTR AUTO&AUTO DIFRNTL WBC BASIC 03012 NEW NEW METABOLIC 0 [facility] PANEL MED CTR MED CTR CALCIUM TOTAL THROMBOPL 51438 NEW NEW ASTIN 0 [facility] TIME MED CTR MED CTR PARTIAL PLASMA/WH [facility] 22344 [facility], DISCHARGE 0 HEART LUPE DAY SPEC MANAGEMEN T 30 MIN/< SBSQ 57097 [facility] 0 HEART LUPE CARE/DAY SPEC 25 MINUTES INITIAL 62783 [facility] 0 [facility]ARD[facility]OTHO [facility] CARE/DAY RACIC 70 [place] [address] [facility], C-CATHJ 0 HEART LUPE F/AORTOGR SPEC APY DUP-SCAN 61248 [facility], LXTR 0 HEART LUPE ART/ARTL SPEC BPGS UNI/LMTD STUDY ECHO 66390 [facility], TTHRC R-T 0 HEART LUPE 2D SPEC W/WOM-MOD E COMPL SPEC&COLR D I SI&R 67741 [facility], F/NJX PX 0 HEART LUPE DURING SPEC C-CATHJ PULM&/OR SELECT L HRT 91526 [facility], CATHETERI 0 HEART LUPE ZATION [place] [address] [facility], C-CATHJ 0 HEART LUPE F/SLCTV C SPEC ANGRPH ECG 49715 [facility], ROUTINE 0 [facility] ECG CLINIC W/LEAST PSC 12 LDS I&R ONLY SBSQ 90770 [facility] 0 HEART LUPE CARE/DAY SPEC 25 MINUTES RADIOLOGI 16423 [facility] [place] [facility], C 0 RADIOLOGY DANITZA R EXAMINATI ON CHEST SINGLE VIEW FRONTAL SBSQ 46333 [facility] 0 HEART LUPE CARE/DAY SPEC 25 MINUTES ECG 31920 [facility], ROUTINE 0 [facility] ECG CLINIC W/LEAST PSC 12 LDS I&R ONLY ECG 38340 SARAH FAIRCHILDMAN ROUTINE 0 [facility] ECG CLINIC J W/LEAST PSC 12 LDS I&R ONLY URINALYSI 58183 NEW NEW S 0 [facility] MICROSCOP MED CTR MED CTR IC ONLY IMMUNOASS 10648 NEW NEW AY 0 [facility] ANALYTE MED CTR MED CTR QUANTITAT JOSE ALFREDO NOS RADIOLOGI 57339 [facility], C 0 RADIOLOGY PETER M EXAMINATI INC ON CHEST SINGLE VIEW FRONTAL CREATINE 20798 NEW NEW KINASE 0 [facility] TOTAL MED CTR MED CTR URNLS DIP 72054 NEW NEW 0 [facility] STICK/TAB MED CTR MED CTR LET RGNT AUTO W/O MICROSCOP Y CREATINE 02068 NEW NEW KINASE MB 0 [facility] FRACTION MED CTR MED CTR ONLY COMPREHEN 72427 NEW NEW SIVE 0 [facility] METABOLIC MED CTR MED CTR PANEL AMBULANCE A0429 [facility] SERVICE 0 [facility] EMERGENCY SQUAD SQUAD TRANSPORT GROUND A0425 [facility] M[facility] MILEAGE 0 [facility] PER LIFE LIFE STATUTE SQUAD SQUAD MILE INITIAL 09179 [facility] 0 HEART LUPE CARE/DAY SPEC 70 MINUTES PROTHROMB 46255 NEW NEW IN TIME 0 [facility] MED CTR MED CTR FIBRIN 09751 NEW NEW DGRADJ 0 [facility] PRODUCTS MED CTR MED CTR D-DIMER QUAL/SEMI KRYSTYNA BLOOD 91672 NEW NEW COUNT 0 [facility] COMPLETE MED CTR MED CTR AUTO&[place] [address] NEW NEW TROPONIN 0 [facility] QUANTITAT MED CTR MED CTR JOSE ALFREDO COLLECTIO 70045 NEW NEW N VENOUS 0 [facility] BLOOD MED CTR MED CTR VENIPUNCT URE THROMBOPL 66304 NEW NEW ASTIN 0 [facility] TIME MED CTR MED CTR PARTIAL PLASMA/WH OLE BLOOD COLLECTIO 42144 [facility] N VENOUS 0 , CHANA , CHANA BLOOD VENIPUNCT URE PROTHROMB 08652 [facility] IN TIME 0 [facility] 78659 [facility] , CHANA , CHANA DAY MANAGEMEN T > 30 MIN SBSQ 66947 [facility] 0 , CHANA , CHANA CARE/DAY 25 MINUTES SBSQ 98300 [facility] 0 , CHANA , CHANA CARE/DAY 35 MINUTES ECG 28065 [facility] ROUTINE 0 , CHANA , CHANA ECG W/LEAST 12 LDS I&R ONLY INITIAL 19883 [facility] 0 , CHANA , CHANA CARE/DAY 70 MINUTES PROTHROMB 49823 [facility] IN TIME 9 [place] [place] [address] [facility] THYROID 9 [facility] STIMULATI NG HORMONE TSH BLOOD 38807 [facility] COUNT 9 [facility] COMPLETE AUTO&AUTO DIFRNTL WBC COLLECTIO 11561 [facility] RAZINI N VENOUS 9 , CHANA , CHANA BLOOD VENIPUNCT URE COMPREHEN 50655 [facility] SIVE 9 [facility] METABOLIC PANEL LIPID 34033 [facility] PANEL 9 [facility] COLLECTIO 81634 RAZINI TAMIALDINI N VENOUS 9 , CHANA , CHANA BLOOD VENIPUNCT URE PROTHROMB 96500 [facility] IN TIME 9 [facility] ADMINISTR G0008 [facility] ATION OF 9 , FERNANDO M , FERNANDO M INFLUENZA VIRUS VACCINE IIV3 51009 [facility] VACCINE 9 , FERNANDO M , FERNANDO M SPLIT VIRUS 0.5 ML DOSAGE IM USE PROTHROMB 48529 [facility] IN TIME 9 [facility] RADIOLOGI 42077 [facility] 9 EICARLOS, EXAMINATI RADIOLOGY DES ON CHEST K SINGLE ASSOCIATE VIEW S PSC FRONTAL PROTHROMB 85841 [facility] IN TIME 9 [facility] PROTHROMB 76024 [facility] IN TIME 9 [place] [place] [address] [facility] THYROID 9 [facility] STIMULATI NG HORMONE TSH DRUG 91826 [facility] SCREEN 9 [facility] QUANTITAT JOSE ALFREDO DIGOXIN TOTAL OPHTH 24518 GAEL MAYO, MEDICAL 9 LUCA SEGOVIA XM&EVAL COMPRE NEW PT 1/> VST DETERMINA 40338 GAEL MAYO TINILSA 9 [place] [address] SUSAN DAVIS INFUSION 9 [facility] THERAPY/P INC INC ROPHYLAXI S /DX 1ST TO 1 HR INITIAL 48218 [facility] SCHMIDT OBSERVATI 9 , CHANA , CHANA ON CARE/DAY 50 MINUTES INITIAL 56338 [facility] 9 , CHANA , CHANA CARE/DAY 70 MINUTES PROTHROMB 38962 [facility] IN TIME 9 [place] [facility] [place] [facility] DRUG 96825 [facility] SCREEN 9 [facility] INC QUANTITAT JOSE ALFREDO DIGOXIN TOTAL PROTHROMB 18475 [facility] COLLECTIO 23846 [facility] N VENOUS 9 [facility] HOSPITAL VENIPUNCT URE DEBRIDEME 58983 LAUSE, LAUSE, NT NAIL 9 ALLYSON ALLYSON ANY V V METHOD 6/> COLLECTIO 96827 [facility] N VENOUS 9 [facility] BLOOD [facility] [place] [address] [facility] TROPONIN 9 [facility] JOSE ALFREDO CREATINE 69244 [facility] KINASE 9 [facility] ECG 91754 [facility] ROUTINE 9 [facility] ECG [facility]PITAL HOSPITAL W/LEAST 12 LDS TRCG ONLY W/O I&R CREATINE 06551 [facility] KINASE MB 9 [facility] FRACTION [facility] ONLY MYOGLOBIN 13873 [facility] HEPATIC 73868 [facility] FUNCTION 9 [facility] PAN[facility] LIPID 55353 [facility] PANEL 9 [facility] DRUG 67496 [facility] SCREEN 9 [facility] JOSE ALFREDO DIGOXIN TOTAL COLLECTIO 04996 [facility] Lambert VENOUS 9 [facility] BLOOD [facility] [place] [address] [facility] THYROID 9 [facility] STIMUL[facility] NG HORMONE TSH PROTHROMB 67747 [facility] IN TIME 9 [facility] BASIC 92473 [facility] METABOLIC 9 [facility] [address] [facility] THYROID 9 [facility] NG HORMONE TSH COLLECTIO 62416 [facility] N VENOUS 9 CO [facility] BLOOD [facility] VENIPUNCT URE PROTHROMB 63600 [facility] TIME [facility] PROT[facility] 22762 [facility] TIME [facility] COLLECT[facility] 19126 [facility] N VENOUS 9 [facility] VENIPUNCT URE COLLECTIO 83164 KENN[place]Y BENAVIDES N VENOUS 8 [place] [facility] [facility] VENIPUNCT URE PROTHROMB 38016 KENNEDY BENAVIDES IN TIME [facility] LIPID 29452 KENNEDY BENAVIDES PANEL 8 [facility]PATIC 15236 KENNEDY BENAVIDES FUNCTION 8 CO CO [facility] BASIC 27736 KENNEDY BENAVIDES METABOLIC 8 CO [facility] CALCIUM TOTAL COMPREHEN 25829 KENNEDY BENAVIDES SIVE 8 CO [facility] METABOLIC [facility] PANEL DRUG 03194 KENNEDY BENAVIDES SCREEN 8 [place] QUANTITAT [facility] JOSE ALFREDO DIGOXIN TOTAL ECG [id number] KENNEDY BENAVIDES ROUTINE 8 [place] ECG [facility] W/LEAST 12 LDS TRCG ONLY W/O I&R COLLECTIO 23292 KENNEDY Lambert VENOUS 8 [place] BLOOD [facility] [place] [address] KENNEDY BENAVIDES THYROID 8 CO CO STIMULATI [facility] NG HORMONE TSH BLOOD 52576 KENNEDY BENAVIDES COUNT 8 CO CO COMPLETE [facility] AUTO&AUTO DIFRNTL WBC COLLECTIO 69538 KENNEDY Lambert VENOUS 8 [place] BLOOD [facility] VENIPUNCT URE PROTHROMB 39703 KENNEDY BENAVIDES IN TIME [address] [facility] DEBRIDEME 71759 LAUSE, LAUSE, NT NAIL 8 [facility] ALLYSON ANY V V METHOD 6/> PROTHROMB 82945 KENNEDY BENAVIDES IN TIME [facility] COLLECTIO 63118 KENNEDY BENAVIDES N VENOUS 8 CO CO BLOOD [facility] [place] [address] KENNEDY BENAVIDES THYROID 8 CO [facility] NG HORMONE TSH COLLECTIO 00073 KENNEDY BENAVIDES N VENOUS 8 [place] [facility] VENIPUNCT URE PROTHROMB 29545 [facility] BENAVIDES [facility] DRUG 92174 KENNEDY BENAVIDES SCREEN 8 CO CO QUANTITAT [facility] JOSE ALFREDO DIGOXIN TOTAL LIPID 09033 [facility] BENAVIDES PANEL 8 [facility] 41646 KENNEDY BENAVIDES FUNCTION 8 CO [facility] BASIC 72874 KENNEDY BENAVIDES METABOLIC 8 [facility] CALCIUM TOTAL PROTHROMB 54386 KENNEDY BENAVIDES IN TIME 8 [facility] COLLECT[facility] 63970 KENNEDY BENAVIDES N VENOUS 8 [facility] [place] [address] KENN[facility]Y BENAVIDES ZINC 8 [facility] COLLECT[facility] 62911 KENNEDY BENAVIDES N VENOUS 8 [place] [facility] [facility] VENIPUNCT URE PROTHROMB 03764 KENNEDY BENAVIDES IN TIME 8 [facility] COLLECTIO 11739 KENNEDY BENAVIDES N VENOUS 8 [place] [facility] [facility] VENIPUNCT URE DRUG 88357 KENNEDY BENAVIDES SCREEN 8 CO CO QUANTITAT [facility] JOSE ALFREDO DIGOXIN TOTAL COLLECTIO 88946 KENNEDY BENAVIDES N VENOUS 8 [facility] VENIPUNCT URE PROTHROMB 64249 KENNEDY BENAVIDES IN TIME [facility] PROTHROMB 73121 [facility]Y BENAVIDES IN TIME [facility] COL[facility] 97178 KENNEDY BENAVIDES N VENOUS 8 [facility] VENIPUNCT URE LIPID 47495 [facility] BENA[facility]IDES PANEL [facility] 17740 KENNEDY BENAVIDES FUNCTION 8 [facility] BASIC 88651 KENNEDY BENAVIDES METABOLIC 8 [facility] CALCIUM TOTAL COLLECTIO 10777 KENNEDY BENAVIDES N VENOUS 8 [facility] VENIPUNCT URE PROTHROMB 38092 KENNEDY BENAVIDES IN TIME 8 [facility] G0378 SUSAN DAVIS OBSERVATI 8 [facility] G0378 SUSAN DAVIS OBSERVATI 8 [facility] ON INC INC SERVICE PER HOUR [place] [address] [place] FORTUNE, PY FLX DX 8 [facility] W/COLLJ SERV SPEC WHEN FOUNDATIO PFRMD IV NFS 00499 SUSAN DAVIS THER 8 [facility] PROPH/DX INC INC 1ST >1 HR [place] 4523 SUSAN DAVIS PY 8 [facility] INC DEBRIDEME 49759 LAUSE, LAUSE, NT NAIL 8 [place] ALLYSON ANY V V METHOD 6/> PROTHROMB 54190 KENNEDY BENAVIDES IN TIME 8 [facility] [facility] COLLECTIO 70655 KENNEDY BENAVIDES N VENOUS 8 [facility] VENIPUNCT URE COLLECTIO 05526 KENNEDY BENAVIDES N VENOUS 8 [facility] VENIPUNCT URE PROTHROMB 32051 KENNEDY BENAVIDES IN TIME 8 [facility] BLOOD 81418 KENNEDY BENAVIDES OCCULT 8 [facility] E ACTV QUAL FECES 1 DETER PROTHROMB 81773 KENNEDY BENAVIDES IN TIME 8 [facility] COLLECTIO 24723 KENNEDY BENAVIDES N VENOUS 8 [facility] VENIPUNCT URE RADIOLOGI 68776 Aguilar BANKS 8 LUPE Fuentes EXAMINATI RADIOLOGY ON PELVIS 1/2 ASSOCIATE VIEWS S PSC RADEX 25627 LOKI DURHAM SACRUM & 8 LUPE Fuentes COCCYX RADIOLOGY MINIMUM 2 VIEWS ASSOCIATE S PSC SCREENING 27940 LOKI DURHAM, 8 LUPE S MAMMOGRAP RADIOLOGY [place] [address] LOKI DURHAM, HEAD/BRAI 8 LUPE S N W/O RADIOLOGY CONTRAST MATERIAL ASSOCIATE S PSC OTHER 7840 KENNEDY BENAVIDES REPAIR/PL 8 [facility] S BONE UNSPEC SITE COLLECTIO 86328 KENNEDY BENAVIDES N VENOUS 8 [facility] VENIPUNCT URE PROTHROMB 17667 KENNEDY BENAVIDES IN TIME 8 [facility] [address] KENN[place]Y BENAVIDES THYROID 8 [facility] TSH COLLECTIO 43209 KENNEDY BENAVIDES N VENOUS 8 [facility] VENIPUNCT URE DRUG 31189 KENN[place]Y BENAVIDES SCREEN 8 [facility] JOSE ALFREDO DIGOXIN TOTAL LIPID 06317 KENN[place]Y BENAVIDES PANEL 8 [facility] HEPATIC 06295 KENNEDY BENAVIDES FUNCTION 8 [facility] BASIC 72662 KENNEDY BENAVIDES METABOLIC 8 [facility] CALCIUM TOTAL COLLECTIO 10024 KENN[place]Y BENAVIDES N VENOUS 8 [facility] VENIPUNCT URE PROTHROMB 24549 KENNEDY BENAVIDES IN TIME 8 [facility] PROTHROMB 43058 KENN[place]Y BENAVIDES IN TIME [address] [facility] COLLECTIO 41530 KENNEDY BENAVIDES N VENOUS 8 [facility] VENIPUNCT URE DEBRIDEME 86654 LAUSE, LAUSE, NT NAIL 8 [facility]YS[facility] ALLYSON ANY V V METHOD 6/> PROTHROMB 01675 KENNEDY BENAVIDES IN TIME 8 [facility] COLLECTIO 99618 KENN[place]Y BENAVIDES N VENOUS 8 [facility] VENIPUNCT URE Encounters Encounter Start End Date Code Location Performer Type Date OFFICE 86575 RUIZ OUTPATIEN 7 7 GERALDO T VISIT 25 PHYSICIAN MINUTES [facility] ST - OTHER 7 7 [facility] 94431 [facility] R[facility] OUTPATIEN 7 7 GERALDO T VISIT 15 PHYSICIAN MINUTES [facility] SUSAN - 7 7 [facility] OUTPATIEN INC T OFFICE 71659 [facility] RUIZ OUTPATIEN 7 7 GERALDO T VISIT 15 PHYSICIAN MINUTES S OFFICE 77020 ST RUIZ OUTPATIEN 7 7 GERALDO T VISIT 15 PHYSICIAN MINUTES S OFFICE 94976 DERMATOLO REYNALDO OUTPATIEN 7 7 GY T NEW 20 CONSULTAN MINUTES TS [facility] OFFICE [address]170 [address] RUIZ OUTPATIEN 7 7 GERALDO T VISIT 15 PHYSICIAN MINUTES [facility] ACCESS 7 7 [facility] OFF[facility] [address] [facility] WILLOBY OUTPATIEN 7 7 GERALDO T VISIT 15 PHYSICIAN MINUTES S OFFICE 71498 ST RUIZ OUTPATIEN 6 6 GERALDO SUSIE T VISIT 15 PHYSICIAN MINUTES S OFFICE 60740 [facility] RUIZ OUTPATIEN 6 6 GERALDO SUSIE T VISIT 15 PHYSICIAN MINUTES [facility] ST - OTHER 6 6 GERALDO MED CTR COLLECTIONS DIRECTOR ST OFFICE 90162 ST RUIZ OUTPATIEN 6 6 GERALDO SUSIE T VISIT 15 PHYSICIAN MINUTES S OFFICE 42077 ST RUIZ OUTPATIEN 6 6 GERALDO SUSIE T VISIT 25 PHYSICIAN MINUTES HOSPITAL UNIVERSIT - 6 6 Y OUTPATI HOSPITAL T EMERGENCY 26275 UNIVERSIT DEPT 6 6 Y VISIT HOSPITAL HIGH SEVERITY& THREAT FUNCJ OFFICE 07204 [facility] OUTPATIEN 6 6 GERALDO KIRILL T VISIT 15 PHYSICIAN MINUTES S OFFICE 22394 [facility] OUTPATIEN 6 6 GERALDO KIRILL T VISIT 15 PHYSICIAN MINUTES S OFFICE 91646 ST RUIZ OUTPATIEN 6 6 GERALDO SUSIE T VISIT 15 PHYSICIAN MINUTES S [facility] ST - OTHER 6 6 GERALDO MED CTR COLLECTIONS DIRECTOR ST EMERGENCY 49179 [place] EMANUEL 6 6 MEDICAL GUILHERME DEPARTMEN SERV T VISIT FOUNDATIO HIGH/URGE N NT SEVERITY OFFICE 43552 [place] MESSERLI OUTPATIEN 6 6 MEDICAL ADR T VISIT SERV 15 FOUNDATIO MINUTES N OFFICE [address] [facility] RUIZ OUTPATIEN 6 6 GERALDO SUSIE T VISIT [address] ACCESS 6 6 [facility] UNIVERSIT - 6 6 Y INPATIENT HOSPITAL OFFICE 93594 ST URIZ OUTPATIEN 6 6 GERALDO SUSIE T VISIT [address] ACCESS 6 [address] [facility] [address] - 6 6 GERALDO OUTPATIEN EMELINA T EMERGENCY 56181 ST. 6 6 GERALDO DEPARTMEN EMELINA T VISIT MODERATE SEVERITY OFFICE 82132 ST [facility] OUTPATIEN 6 6 GERALDO II QUENTIN T VISIT [address] ACCESS 6 6 [facility] DAD[facility] OFFICE 16322 MARLON GERMÁN JR OUTPATIEN 6 6 MEDICAL THO T VISIT SERV 15 FOUNDATIO MINUTES N EMERGENCY 20360 MARLON DIANE DEPT 6 6 MEDICAL THERESA VISIT SERV HIGH FOUNDATIO SEVERITY& N THREAT [facility] - 6 6 [facility] 22163 [facility] DE[facility] 6 6 GERALDO VISIT ADDIE HIGH SEVERITY& THREAT [facility] 19451 [facility] OUT[facility] 5 5 GERALDO II QUENTIN T VISIT 15 PHYSICIAN MINUTES [facility] - 5 N OUTPATIEN COMMUNTIY T HOSPITA EMERGENCY 86332 [facility] CAMILLA CHANCE VISIT EMERGENCY HIGH PHYS SEVERITY& THREAT [facility] ST OTHER 5 5 GERALDO MED CTR COLLECTIONS DIRECTOR OFFICE 65718 [facility] 5 5 GERALDO SUSIE T VISIT 25 PHYSICIAN MINUTES S OFFICE [address] [facility] 5 5 GERALDO KIRILL T VISIT 15 PHYSICIAN [facility] 5 5 [facility] T EMERGENCY 62811 [facility] VISIT MED CTR HIGH SEVERITY& THREAT [facility] [place] [address] 5 N OUTPATIEN COMMUNTIY T HOSPITA EMERGENCY 46177 [facility] 5 5 CAMILLA CHANCE DEPARTMEN EMERGENCY T VISIT PHYS HIGH/URGE NT SEVERITY HOSPITAL UN[facility]ERSIT - 5 5 [facility] - 5 5 [facility] T EMERGENCY 11487 NEW 5 5 [facility] T VISIT LOW/MODER SEVERITY CRITICAL NEW ACCESS 5 5 [facility] MED CTR OFFICE 23211 [place] WHAYNE JR OUTPATIEN 5 5 MEDICAL THO T VISIT SERV 15 FOUNDATIO MINUTES N OFFICE [address] [facility] OUTPATIEN 5 5 GERALDO KIRILL T VISIT [address] ACCESS 4 4 [facility] ADD[facility] OFFICE [address]10 [facility] OUTPATIEN 4 4 GERALDO II QUENTIN T VISIT 25 PHYSICIAN MINUTES S OFFICE [address] [facility] OUTPATIEN 4 4 GERALDO II QUENTIN T VISIT [address] ACCESS 4 4 [facility] EMERGENCY 58167 UNIVERSIT [address] [facility] HOSPITAL T VISIT HIGH/URGE NT SEVERITY [facility] UNIVERSIT - 4 4 [facility] 4 [facility] UN[facility] - 4 4 Y INPATIENT HOSPITAL EMERGENCY 77348 UNIVERSIT DEPT 4 4 Y VISIT HOSPITAL HIGH SEVERITY& THREAT [facility] UNIVERSIT - 4 4 [facility] EMERGENC[facility] 89239 NEW 4 4 [facility] CTR T VISIT HIGH/URGE NT SEVERITY HOSPITAL NEW - 4 4 [facility] EMERGENCY 54409 NEW 4 4 [facility] MED CTR T VISIT HIGH/URGE NT SEVERITY CRITICAL NEW ACCESS 4 4 [facility] ST - OTHER 4 4 GERALDO MED CTR COLLECTIONS DIRECTOR ST OFFICE 36218 [facility] OUTPATIEN 4 4 GERALDO KIRILL T VISIT 15 PHYSICIAN MINUTES S EMERGENCY 30620 UNIVERSIT DEPT 4 4 Y VISIT HOSPITAL HIGH SEVERITY& THREAT [facility] UNIVERSIT - 4 4 [facility] T OFFICE 57413 [facility] OUTPATIEN 4 4 GERALDO KIRILL T VISIT 15 PHYSICIAN MINUTES HOSPITAL CENTRAL - 4 4 [facility] T EMERGENCY 65741 [facility] DEPT 4 4 EMERGENCY DIR VISIT PHYS PSC HIGH SEVERITY& THREAT FUN EMERGENCY 17943 [facility] 4 4 [facility] DEPARTMEN HOSP T VISIT HIGH/URGE NT SEVERITY OFFICE [address] [facility] OUTPATIEN 4 4 GERALDO KIRILL T VISIT 25 PHYSICIAN MINUTES S OFFICE 0[address]6 [facility] OUTPATIEN 4 4 GERALDO II QUENTIN T VISIT 15 PHYSICIAN MINUTES S EMERGENCY 43608 FAITH DEPT 4 4 GERALDO SHIRAZ VISIT MED CTR HIGH SEVERITY& THREAT FUN OFFICE 84229 [facility] OUTPATIEN 4 4 GERALDO KIRILL T VISIT 25 PHYSICIAN MINUTES S OFFICE 69415 [facility] OUTPATIEN 3 3 GERALDO KIRILL T VISIT 15 PHYSICIAN MINUTES [facility] CARDINAL - 3 3 [facility] OUTPATIEN REHAB T HOSP OFFICE 59305 AURELIANO LUGO OUTPATIEN 3 3 [facility] SM[facility] 45 PSC MINUTES OFFICE 43472 OUTPATIEN 3 3 [facility] SMITH 20 REHAB MINUTES HOSP OFFICE [address] [facility] OUTPATIEN 3 3 GERALDO KIRILL T VISIT 25 PHYSICIAN MINUTES S EMERGENCY 55101 MARLON GILLIAM DEPT 3 3 MEDICAL I ALI VISIT SERV HIGH FOUNDATIO SEVERITY& THREAT FUNJ OFFICE 56085 MARLON DUNLAP JR OUTPATIEN 3 3 MEDICAL THO T VISIT SERV [address] [facility] UNIVERSIT - 3 3 Y [facility] UNIVERSIT - 3 3 Y [facility] UNIVERSIT - 3 3 Y [facility] T EMERGENCY 12300 UNIVERSIT DEPT 3 3 Y VISIT HOSPITAL HIGH SEVERITY& THREAT FUNCJ OFFICE 52612 MARLON DUNLAP JR [facility] 3 3 MEDICAL THO T VISIT SERV 40 FOUNDATIO MINUTES EMERGENCY 15784 [facility] DEPT 3 3 [facility] VISIT MED CTR HIGH SEVERITY& THREAT FUN EMERGENCY 51907 ACUTE SHARI 3 3 [facility]IT [facility] HIGH/URGE NT SEVERITY [facility] UNIVERSIT - 3 3 Y INPATIENT HOSPITAL EMERGENCY 85512 MARLON GARDNER DEPT 3 3 MEDICAL AUGUST VISIT SERV HIGH FOUNDATIO SEVERITY& THREAT FUN OFFICE 49417 MARLON DUNLAP JR [facility] 3 3 MEDICAL THO T VISIT SERV 15 [facility] UNIVERSIT - 3 3 Y [facility] UNIVERSIT [facility] 3 3 Y [facility] T OFFICE 23091 MARLON DUNLAP JR [facility] 3 3 MEDICAL THO T VISIT SERV 25 [facility] 3 3 [facility] EMERGENCY 82755 UNIVERSIT DEPT 3 3 Y VISIT HOSPITAL HIGH SEVERITY& THREAT [facility] UNIVERSIT - 3 3 Y [facility] T OFFICE 84629 [facility] CAI [facility] 3 3 MEDICAL T VISIT SERV 25 FOUNDATIO MINUTES EMERGENCY 04172 MARLON HUDDLESTON 3 3 [facility] T VISIT FOUNDATIO HIGH/URGE NT SEVERITY OFFICE 52237 ALLRAN JR ALLRAN JR OUTPATIEN 3 3 VEE VEE T NEW [address] [facility] OUTPATIEN 3 3 GERALDO II QUENTIN T VISIT [address] ACCESS 3 3 [facility] OFFICE [address] [facility] OUTPATIEN [address] [facility] T VISIT [address] [facility] - OTHER 3 3 [facility] OFFICE [address] [facility] OUTPATIEN [address] [facility] T VISIT 15 PHYSICIAN MINUTES S OFFICE [address] [facility] OUTPATIEN [address] [facility] QUENTIN T VISIT [address] - OTHER 3 3 [facility] OFFICE [address] [facility] OUTPATIEN 3 3 LAUREL BLOOMERY II QUENTIN T VISIT 15 PHYSICIAN MINUTES S OFFICE [address]38 [facility] S[facility]ORT[facility] OUTPATIEN 3 3 GERALDO T VISIT [address] - OTHER 3 3 [facility] NTER EMERGENCY 78630 MARLON JONES DEPT 3 3 MEDICAL ARON VISIT SERV HIGH FOUNDATIO SEVERITY& THREAT [facility] UNIVERSIT - 3 3 Y INPATIENT [facility] SUSAN - 2 2 [facility] OUTPATIEN INC T OFFICE 18688 MARLON ROCHA OUTPATIEN 2 2 MEDICAL T VISIT SERV 25 FOUNDATIO MINUTES EMERGENCY 23801 MARLON MONET DEPT 2 2 MEDICAL VISIT SERV HIGH FOUNDATIO SEVERITY& THREAT [facility] UNIVERSIT - 2 2 Y INPATIENT HOSPITAL OFFICE 770[address] [facility] OUTPATIEN 2 2 GERALDO II QUENTIN T VISIT [address] ACCESS 2 2 [facility] ADDIE EMERGENCY 16342 ST. 2 2 GERALDO DEPARTMEN ADDIE T VISIT HIGH/URGE NT SEVERITY EMERGENCY 98558 ST RICHARDSO DEPT 2 2 GERALDO N GLORIA VISIT MED CTR HIGH SEVERITY& THREAT FUNCJ CRITICAL ST. ACCESS 2 2 [facility] ADD[facility] OFFICE [address] [facility] OUTPATIEN 2 2 GERALDO II QUENTIN T VISIT 15 PHYSICIAN MINUTES S OFFICE [address] [facility] OUTPATIEN 2 2 GERALDO II QUENTIN T VISIT 15 PHYSICIAN MINUTES S OFFICE [address]203 [facility] OUTPATIEN 2 2 GERALDO II QUENTIN T VISIT 15 PHYSICIAN MINUTES [facility] ST - OTHER 2 2 GERALDO MEDICALCE NTER OFFICE 54413 ST ZHAOEY OUTPATIEN 2 2 GERALDO ER GUILHERME T VISIT [address] ACCESS 2 2 [facility] OFFICE [address] STRICKMEY OUTPATIEN 2 2 GERALDO ER GUILHERME T VISIT 25 PHYSICIAN MINUTES S EMERGENCY 16342 ST. DEPT 1 1 GERALDO VISIT ADDIE HIGH SEVERITY& THREAT FUNCJ CRITICAL ST. ACCESS 1 1 [facility] ADD[facility] EMERGENCY 20650 NEW DEPT 1 1 HORIZONS VISIT MED CTR HIGH SEVERITY& THREAT FUNCJ CRITICAL NEW ACCESS 1 1 [facility] MED CTR CRITICAL ST. ACCESS 1 1 [facility] EMERGENCY 07501 ST. DEPT 1 1 GERALDO VISIT [place] HIGH SEVERITY& THREAT [facility] ST - 1 1 GERALDO INPATIENT [facility] ST - 1 1 GERALDO INPATIENT [facility] EMERGENCY 78486 ST. DEPT 1 1 GERALDO VISIT [place] HIGH SEVERITY& THREAT [facility] ST - 1 1 GERALDO [facility] 44230 ST. DEPT 1 1 GERALDO VISIT [place] HIGH SEVERITY& THREAT [facility] KENNEDY - 1 1 [facility] KENNEDY - 1 [address] [facility] EMERGENCY 66225 [facility] DEPT 1 1 [facility] HIGH SEVERITY& THREAT [facility] MHC INC, - 1 1 COLLECTIONS DIRECTOR INPATIENT [facility] SUSAN - 1 1 [facility] OUTPATIEN [facility] DE[facility] R[facility] VISIT [facility]IGH CLINIC SEVERITY& THREAT FUN CRITICAL [place] ACCESS 1 1 [facility] EM[facility]ENC[facility] 47002 BRAYAN SCHMIDT 1 1 LACEY LACEY DEPARTMEN T VISIT HIGH/URGE NT SEVERITY EMERGENCY 69620 ACUTE CALDERON 0 0 CARE [facility] DEPARTMEN BILLING T VISIT [facility] HIGH/URGE NT SEVERITY EMERGENCY 80297 NEW 0 0 [facility] MED CTR T VISIT MODERATE SEVERITY CRITICAL NEW ACCESS 0 0 [facility] MED CTR OFFICE 42502 [facility] RE[facility] OUTPATI[facility] 0 0 FOOT & T NEW 20 ANKLE CE MINUTES OFFICE 13548 RINALDINI RINALDINI OUTPATIEN 0 0 LACEY LACEY T VISIT 15 MINUTES OFFICE 77601 [facility] LIU TRA OUTPATIEN 0 0 [place] T VISIT ORTHOPAED 15 [facility] MINUTES HOSPITAL SUSAN - 0 0 [facility] 68535 RINALDINI RINALDINI OUTPATIEN 0 0 LACEY LACEY T VISIT 15 MINUTES CRITICAL [place]ENN[place]Y ACCESS 0 0 [facility] EMERGENCY 06574 KENNEDY 0 0 [facility] T VISIT MODERATE SEVERITY CRITICAL [place]ENN[place]Y ACCESS 0 0 [facility] EMERGENCY 41674 ACUTE BART[place] DEPT 0 0 CARE MUH VISIT BILLING [facility]IGH [facility] SEVERITY& THREAT [facility] CENTRAL - 0 0 [facility] INPATIENT [facility]OSP OFFICE 89543 MILY OUTPATIEN 0 0 CLINIC T NEW 30 PSC MINUTES CRITICAL KENNEDY ACCESS 0 0 [facility] CARDINAL - 0 0 [facility] UNIVERSIT - 0 0 Y INPATIENT HOSPITAL OFFICE 29667 RINALDINI RINALDINI OUTPATIEN 0 0 , CHANA , CHANA T VISIT 15 MINUTES HOSPITAL UNIVERSIT - 0 0 Y [facility] T OFFICE 80931 [place] OUTPATIEN 0 0 MEDICAL JR, T VISIT SERV [facility] UN[facility] 0 0 Y [facility] T OFFICE 07223 [place] WHAY[place] OUTPATIEN 0 0 MEDICAL JR, T VISIT SERV ANAIS F FOUNDATIO [facility] OFFICE 49118 RINALDINI RINALDINI OUTPATIEN 0 0 , CHANA , CHANA T VISIT 15 MINUTES EMERGENCY 09621 NEW DEPT 0 0 HORIZONS VISIT MED [facility] HIGH SEVERITY& THREAT [facility] UNIVERSIT - 0 0 Y INPATIENT HOSPITAL OFFICE 74888 TRISTIAN BLOODO, OUTPATIEN 0 0 [facility] LU[facility] T VISIT SPEC 40 MINUTES EMERGENCY 36757 KENNEDY VOGELO 0 0 [facility] T VISIT MODERATE SEVERITY OFFICE 42639 RINALDINI RINALDINI OUTPATIEN 0 0 , CHANA , CHANA T VISIT 15 MINUTES OFFICE 15012 RINALDINI RINALDINI OUTPATIEN 0 0 , CHANA , CHANA T VISIT 15 MINUTES CRITICAL [place] ACCESS 0 0 [facility] OFF[facility] 14808 RINALDINI RINALDINI OUTPATIEN 0 0 , CHANA , CHANA T VISIT 15 MINUTES EMERGENCY 36282 ACUTE [place], 0 0 [facility] T VISIT [facility] MODERATE SEVERITY CRITICAL NEW ACCESS 0 0 [facility] MED CTR CRITICAL NEW ACCESS 0 0 [facility] MED CTR EMERGENCY 33561 NEW DEPT 0 0 [facility] VISIT MED CTR HIGH SEVERITY& THREAT [facility] OFFICE 15455 RINALDINI RINALDINI OUTPATIEN 0 0 , CHANA , CHANA T VISIT 15 MINUTES OFFICE 93226 RINALDINI RINALDINI OUTPATIEN 9 9 , CHANA , CHANA T VISIT 15 MINUTES OFFICE 51337 RINALDINI RINALDINI OUTPATIEN 9 9 , CHANA , CHANA T VISIT 5 MINUTES OFFICE 22131 RINALDINI RINALDINI OUTPATIEN 9 9 , CHANA , CHANA T VISIT 15 MINUTES OFFICE 10651 RINALDINI RINALDINI OUTPATIEN 9 9 , LACEY ZAYAS T VISIT 10 MINUTES HOSPITAL SUSAN - 9 9 [facility] OUTPATIEN [facility] T OFFICE 60438 RINALDINI RINALDINI OUTPATIEN 9 9 , LACEY ZAYAS T VISIT 10 MINUTES CRITICAL [place]ENN[place]Y ACCESS 9 9 [facility] CRITICAL [place] ACCESS 9 9 [facility] CRITICAL [facility] ACCESS 9 9 [facility] CRITICAL [facility] ACCESS 9 9 [facility] CRITICAL [facility] ACCESS 9 9 [facility] CRITICAL [facility] ACCESS 9 9 [facility] CRITICAL [facility] ACCESS 8 8 [facility] CRITICAL [facility] ACCESS 8 8 [facility] CRITICAL [facility] ACCESS 8 8 [facility] KENNEDY - 8 8 [facility] KENNEDY - 8 8 [facility] KENNEDY - 8 8 [facility] KENNEDY - 8 8 [facility] KENNEDY - 8 8 [facility] KENNEDY - 8 8 [facility] KENN[facility]Y - 8 8 [facility] KENNEDY - 8 8 [facility] SUSAN - 8 8 [facility] KENNEDY - 8 8 [facility] KENNEDY - 8 8 [facility] KENNEDY - 8 8 [facility] KENNEDY - 8 8 [facility] KENNEDY - 8 8 [facility] KENNEDY - 8 8 [facility] KENNEDY - 8 8 [facility] KENNEDY - 8 8 [facility] KENNEDY - 8 8 [facility]
--- OUTSIDE RECORDS SUMMARY | 2016-09-29 12:23 | External Medical Summary Rpt ---
Author Author , JOSEPH RUIZ Address Unknown Phone Care Team Providers Care Manufacturing Production Manager Name Role Phone DANITZA RIDER, Unavailable Unavailable DANITZA RIDER [facility] Unavailable [place]available [place] [place] [facility] Unavailable Unavailable [place] [place] [facility], [facility] JONES ARON, JONES Unavailable Unavailable ARON AHMED ADN, AHMED ADN Unavailable Unavailable AIKAT SHA, AIKAT SHA Unavailable Unavailable [facility] , Unavailable Unavailable [facility] [place] [facility] [place], Unavailable Unavailable [facility] [place] AL RIFAI LACEY, AL Unavailable Unavailable RIFAI LACEY ALLRAN JR VEE, ALLRAN Unavailable Unavailable JR VEE ALLRAN JR VEE, ALLRAN Unavailable Unavailable JR VEE WALLACE ANT, WALLACE Unavailable Unavailable ANT [facility] Unavailable Unavailable RESPONSE, [facility] Unavailable Unavailable RESPONSE, [facility] [place], Unavailable Unavailable INC., [facility] [employer] [facility] [place], Unavailable Unavailable INC., [facility] [...] [facility] Un[facility], [facility] Unavailable Unavailable [facility], [facility] Un[facility] Unavailable [facility]available [facility] CHOLERA KIRILL, CHOLERA Unavailable Unavailable [...] INC GELORMINI ANDREW, Unavailable Unavailable GELORMINI ANDREW [place] [facility] Un[facility] , [place] [facility] [facility] [facility], [facility] Unavailable Unavailable [facility], [facility] Unavailable Unavailable EMS, [facility] HILLMAN MJ, HILLMAN MJ Unavailable Unavailable ABDULLAHI HUYNH Unavailable Unavailable MARABDULLAHI MAR VIVIAN THO, VIVIAN THO Unavailable Unavailable JERMAINE ANI, Unavailable Unavailable JERMAINE ANI [facility], Unavailable Unavailable [facility]available Unavailable INC, [facility], Unavailable Unavailable INC., [facility], Unavailable Unavailable INC., [facility] SINDY LAWLER, Unavailable Unavailable [...] III VEE, Unavailable Unavailable ADRIANA III VEE [facility] Un[facility] JOEY PEPITO, Unavailable Unavailable [...] [facility], [place] [facility], Unavailable Unavailable [facility] AILYN WHITNEY, AILYN Unavailable Unavailable WHITNEY [...] Unavailable Unavailable [facility], [facility] Unavailable Unavailable 9, [facility] Unavailable Unavailable ACTION, [facility] JULIÁN REGLA, JULIÁN Unavailable Unavailable REGLA JULIÁN REGLA, JULIÁN Unavailable Unavailable REGLA LUBBERS SHIRAZ, LUBBERS Unavailable Unavailable SHIRAZ RUIZ, RUIZ Unavailable Unavailable RUIZ SUSIE, RUIZ Unavailable Unavailable SUSIE [facility] Unavailable Unavailable SERVICES, [facility] KENDRA AUGUST, KENDRA Unavailable Unavailable AUGUST [facility] Unavailable Unavailable ASSOCIAT, [facility] GAMA MJ, GAMA Unavailable Unavailable MJ MARINA ESQUEDA MD, Unavailable Unavailable MARINA ESQUEDA [facility] Un[facility] LLC, [facility], [facility] Unavailable Unavailable [facility] -, [facility] Unavailable Unavailable - [place] [facility], [facility] Unavailable Unavailable [facility] Unavailable Unavailable SERV STAFF DEVELOPMENT EDUCATOR R, [facility] STAFF DEVELOPMENT EDUCATOR R [facility] Unavailable Unavailable SERV STAFF DEVELOPMENT EDUCATOR R, [facility] STAFF DEVELOPMENT EDUCATOR R [facility] Unavailable Unavailable SERVICE, [facility] MERHAR GAR, MERHAR Unavailable Unavailable GAR MESSERLI ADR, Unavailable Unavailable MESSERLI ADR [facility], STAFF DEVELOPMENT EDUCATOR [facility] Unavailable Unavailable CO [facility], [facility], STAFF DEVELOPMENT EDUCATOR [facility] NICOLE CHOLERA DO Unavailable Unavailable INC, [facility] MINION SHIRAZ, MINION Unavailable Unavailable SHIRAZ LUIS, DEBABRATA, Unavailable Unavailable LUIS, DEBABRATA MUSIC, MUSIC Unavailable Unavailable NEILS GLORIA, NEILS GLORIA Unavailable Unavailable [facility] Un[facility], Unavailable Unavailable [facility] NICKELS SHIRAZ, NICKELS Unavailable Unavailable SHIRAZ VALDO GUILHERME, Unavailable Unavailable VALDO GUILHERME [facility] BR[facility], Unavailable Unavailable [facility] OUTSA REKHA, OUTSA REKHA Unavailable Unavailable TRACY REGLA, [facility] Unavailable Unavailable [facility] Unavailable Unavailable TRANSIT, [facility] TRANSIT [facility] Unavailable Unavailable SQUAD, [facility] SQUAD [facility] Unavailable Unavailable SQUAD, [facility], Unavailable Unavailable [facility] JAN FRANKS Unavailable Unavailable BAR FORTUNE, CHAVA, FORTUNE, Unavailable Unavailable CHAVA OLIVO BRA, OLIVO Unavailable Unavailable BRA COBB SUSI, Unavailable Unavailable COBB SUSI [facility], [facility] Unavailable Unavailable [facility] PULMANO SIRENA, PULMANO Unavailable Unavailable SIRENA BARTON MUH, BARTON Unavailable Unavailable MUH BARTON, PERKINS, Unavailable Unavailable BARTON, PERKNIS [facility] Un[facility] Unavailable Unavailable [facility], [facility] RAMAIAH VEE, RAMAIAH Unavailable Unavailable VEE RAMAIAH, IRON, Unavailable Unavailable RAMAIAH, IRON REDA HAS, REDA HAS Unavailable Unavailable MATT NEREIDA, Unavailable Unavailable MATT NEREIDA REKHRAJ, LEXA, Unavailable Unavailable REKHRAJ, LEXA REXROAD, MARIELA T, Unavailable Unavailable REXROAD, MARIELA T ESTEBAN GLORIA, Unavailable Unavailable ESTEBAN GLORIA RINALDINI LACEY, Unavailable Unavailable RINALDINI LACEY RINALDINI LACEY, Unavailable Unavailable RINALDINI LACEY RINALDINI, CHANA, Unavailable Unavailable RINALDINI, CHANA ROEBKER JAM, ROEBKER Unavailable Unavailable JAM EMANUEL GUILHERME, EMANUEL Unavailable Unavailable GUILHERME CT JACQUELINE, CT JACQUELINE Unavailable Unavailable [facility] Unavailable [facility] Unavailable Unavailable [facility], [facility] Unavailable Unavailable [facility], [facility] RUSCHMAN KEYLA, Unavailable Unavailable RUSCHMAN KEYLA ONUR MAR, ONUR Unavailable Unavailable MAR ABBY JACK, ABBY JACK Unavailable Unavailable AVTAR JACQUELINE, AVTAR Unavailable Unavailable JACQUELINE CECY LEAH, CECY Unavailable Unavailable LEAH SCHKELSY RAN, Unavailable Unavailable SCHLEENBAJORGTIO RAN HONG JAM, HONG Unavailable Unavailable JAM SCHMITTER NEREIDA, Unavailable Unavailable SCHMITTER NEREIDA LAVELL THERESA, LAVELL Unavailable Unavailable THERESA SUAD LEE, SUAD Unavailable Unavailable [facility] Unavailable Unavailable CENTER, [facility] Unavailable Unavailable SINCERE, [...] Unavailable Unavailable EQUIPME, [facility] Unavailable Unavailable EMERGENCY PHYS, [facility] EMERGENCY PHYS [facility] Unavailable Unavailable [facility]ARE EDGE, [facility], [facility] Unavailable Unavailable STAFF DEVELOPMENT EDUCATOR ST, [facility] STAFF DEVELOPMENT EDUCATOR [facility] Unavailable [facility]available CENTER, [facility] Unavailable Unavailable [facility], [facility] Unavailable [facility]available PHYSICIANS, [facility] Unavailable Unavailable EMELINA, [facility] ADDIE, Unavailable Unavailable [facility] ADDIE REYNALDO, REYNALDO Unavailable Unavailable ELVA VANEGAS, Unavailable Unavailable MIGUELITO MORENO Unavailable Unavailable ISI [...] GASTROENTEROLOGYAS TRUE SUSIE, TRUE SUSIE Unavailable Unavailable [facility], Unavailable Unavailable [facility] DANA SAUCEDA VEE, CHRISTINE Unavailable Unavailable VEE [...] 08-24-2016 ST ABDOMINAL [facility] PAIN PHYSICIANS UNSPECIFIED [id number] BASAL CELL 08-23-2016 DERMATOLOGY CARCINOMA SKIN OF [...] R0981 NASAL 08-09-2016 ST CONGESTION [facility] PHYSICIANS [id number] SQUAMOUS 07-26-2016 DERMATOLOGY CELL CA SKIN RT [...] DERMATOLOGY UNCERTAIN BEHAVIOR OF CONSULTANTS SKIN PSC H77891 CUTANEOUS 06-11-2016 DERMATOLOGY ABSCESS BACK ANY CONSULTANTS [...] [facility] IMMUNIZATIO PHYSICIANS N I517 CARDIOMEGAL 12-20-2015 [place] [facility] Y SERV [facility] 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 I440 ATRIOVENTRI 12-19-2015 [place] MEDICAL CULAR BLOCK SERV FIRST FOUNDATION DEGREE I4510 UNSPECIFIED 12-19-2015 [place] MEDICAL RIGHT SERV BUNDLE-BRAN [facility] CH BLOCK I471 SUPRAVENTRI 12-19-2015 [facility] TACHYCARDIA I4891 UNSPECIFIED 12-19-2015 [place]IAL [facility] FIBRILLATIO EMS N R002 PALPITATION 12-19-2015 ST S [facility] PHYSICIANS R0789 OTHER CHEST 12-19-2015 [facility] R0902 HYPOXEMIA 12-19-2015 [facility] PHYSICIANS R092 RESPIRATORY 12-19-2015 [place] ARREST [facility] R55 SYNCOPE AND 12-19-2015 ST COLLAPSE [facility] PHYSICIANS R9431 ABNORMAL 12-19-2015 [facility] ELECTROCARD SERV IOGRAM FOUNDATION [id number] CONTUSION 12-19-2015 ST OF SCALP [facility] INITIAL PHYSICIANS ENCOUNTER [id number] UNSPECIFIED 12-19-2015 [place] [facility] INJURY OF SERV HEAD FOUNDATION INITIAL ENCOUNTER V554XCA UNSPECIFIED 12-19-2015 [place] [facility] INJURY OF SERV NECK FOUNDATION INITIAL ENCOUNTER [id number] CONTUSION 12-19-2015 ST UNS BACK [facility] WALL THORAX PHYSICIANS INITIAL ENCOUNTER P69SOBN UNSPECIFIED 12-19-2015 [place] [facility] FALL SERV INITIAL [...] ST ABNORMAL [facility] FINDINGS IN MED CTR STAFF DEVELOPMENT EDUCATOR URINE ST H29658 PERSONAL 08-08-2015 ST HISTORY OF [facility] URINARY PHYSICIANS TRACT INFECTIONS I480 PAROXYSMAL 07-19-2015 [place] [facility] ATRIAL SERV FIBRILLATIO FOUNDATION N I498 OTHER 07-19-2015 [facility] SPECIFIED MEDICAL CARDIAC RESPONSE ARRHYTHMIAS J029 ACUTE 07-19-2015 [facility] PHARYNGITIS SERV FOUNDATION UNSPECIFIED J90 PLEURAL 07-19-2015 [place] [facility] EFFUSION SERV NOT FOUNDATION ELSEWHERE CLASSIFIED J9811 ATELECTASIS 07-19-2015 [facility] R072 PRECORDIAL 07-19-2015 ST PAIN [facility] 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 LEFT [facility] SHOULDER ADDIE R937 ABN FIND ON 06-24-2015 ST. DX IMAG [facility] OTH PART ADDIE MUSCULOSKEL ETAL SYS I214 NON-ST 06-09-2015 [place] [facility]ICAL ELEVATION SERV MYOCARDIAL FOUNDATION INFARCTION I499 CARDIAC 06-08-2015 [facility] ARRHYTHMIA [facility]ANCE UNSPECIFIED SERV STAFF DEVELOPMENT EDUCATOR R R0602 SHORTNESS 06-08-2015 ST. OF BREATH [facility] EMELINA R1084 GENERALIZED 06-08-2015 [facility] ABDOMINAL LIFE SQUAD PAIN R7889 FINDING OTH 06-08-2015 ST. SPEC [facility] SUBSTANCES EMELINA NOT NORM FOUND BLOOD R918 OTHER 06-08-2015 [place] MEDICAL NONSPECIFIC SERV ABNORMAL FOUNDATION FINDING OF LUNG FIELD R87007 OTHER LONG 06-08-2015 ST. TERM [facility] CURRENT EMELINA DRUG THERAPY G96162 PERSONAL 06-08-2015 [facility]IST[facility] VENOUS THROMBOSIS& EMBOLISM Z950 PRESENCE OF 06-08-2015 [facility] PACEMAKER Z955 PRESENCE OF 06-08-2015 [facility] ANGIOPLASTY IMPLANT & GRAFT [id number] COLLAPSED 06-06-2015 [facility]. VERT NEC [facility] LUMB RGN ADDIE INIT ENC FX R300 DYSURIA 06-06-2015 [facility] PHYSICIANS J8020XT MULTIPLE FX 06-06-2015 ST. RIBS LT [facility] SIDE INIT ADDIE ENC CLOS FRACTURE T4998NE UNSPECIFIED 06-06-2015 . INJUR[facility] [place] LOWER BACK ADDIE INITIAL ENCOUNTER I6523 OCCLUSION & 05-26-2015 ST. STENOSIS [place] BILATERAL MERIDEN CAROTID ARTERIES M549 DORSALGIA 05-26-2015 [facility] UNSPECIFIED LIFE SQUAD Z4193PA MX FX RIBS 05-26-2015 ST. LT SIDE [facility] SUBSEQUENT EMELINA ENC FX W/RTN HLNG Z7901 PENITENTIARY 05-26-2015 ST. CURRENT USE [facility] OF EMELINA ANTICOAGULA NTS Z9181 HISTORY OF 05-26-2015 [facility] [place] [facility] EMELINA S48391 ACUTE 05-23-2015 POST-TRAUMA [place] TIC PHYSICIANS HEADACHE NOT INTRACTABLE R0781 PLEURODYNIA 05-23-2015 [facility] ADDIE T1490 INJURY 05-23-2015 . 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 I351 NONRHEUMATI 04-18-2015 [facility] AORTIC [facility] VALVE INSUFFICIEN CY T04570 ACUTE EMBO 04-18-2015 [facility] DEEP VEINS UNS LOW EXTREM U99958 PERSONAL 04-18-2015 [place] MEDICAL HISTORY OF SERV PULMONARY FOUNDATION EMBOLISM Z8673 PERSONAL HX 04-18-2015 [place] MEDICAL TIA & SERV CEREB FOUNDATION INFARCT NO RESID DEFICIT Z952 PRESENCE OF 04-18-2015 [facility] PROSTHETIC [facility] HEART VALVE Z959 PRESENCE 04-18-2015 [place] MEDICAL CARDIAC & SERV VASCULAR FOUNDATION IMPLANT & GRAFT UNS I2789 OTHER 04-07-2015 [place] MEDICAL SPECIFIED SERV PULMONARY FOUNDATION HEART DISEASES E780 PURE 04-06-2015 [facility] TEROLEMIA ADDIE E875 HYPERKALEMI 04-06-2015 [facility] I959 HYPOTENSION 04-06-2015 [facility] UNSPECIFIED J9610 CHRONIC 04-06-2015 [facility] FAIL UNS HYPOXIA/HYP ERCAPNIA R440 AUDITORY 02-15-2015 [facility] [place] [facility] [facility] G9341 METABOLIC 02-11-2015 NICOLE ENCEPHALOPA [facility] DO THY INC J9611 CHRONIC 02-11-2015 NICOLE RESPIRATORY CHOLERA DO FAILURE INC WITH HYPOXIA R443 HALLUCINATI 02-10-2015 [facility] UNSPECIFIED MED CTR 97114 12-22-2014 [facility] REGION 9 496 CHRONIC 12-21-2014 ACTIVE DAY AIRWAY OF OBSTRUCTION [place] NEC 76806 COR 12-14-2014 ATHEROSLERO [facility] UNSPEC PHYSICIANS TYPE VESSEL [place]/NONI T 490 BRONCHITIS 12-14-2014 NOT [facility] SPECIFIED PHYSICIANS ACUTE OR CHRONIC 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 UNSPECIFIED STATUS 58255 CHEST PAIN 11-25-2014 [place] MEDICAL UNSPECIFIED SERV FOUNDATION 10266 NONSPECIFIC 11-25-2014 [place] MEDICAL ABNORMAL SERV ELECTROCARD FOUNDATION IOGRAM V1251 PERSONAL 11-25-2014 OR MEDICAL HISTORY, SERV VENOUS FOUNDATION THROMBOSIS AND EMBOLISM V433 HEART VALVE 11-25-2014 [place] MEDICAL REPLACED SERV BY OTHER FOUNDATION MEANS 4019 UNSPECIFIED 11-24-2014 [place] MEDICAL ESSENTIAL SERV HYPERTENSIO FOUNDATION N 17877 ACUTE 11-24-2014 AIR METHODS MYOCARD [place] INFARCT UNSPEC SITE INIT EPIS CARE 4241 AORTIC 11-24-2014 [place] MEDICAL VALVE SERV DISORDERS FOUNDATION 4293 CARDIOMEGAL 11-24-2014 [place] MEDICAL Y SERV FOUNDATION 5180 PULMONARY 11-24-2014 [place] MEDICAL COLLAPSE SERV FOUNDATION 34034 DIVERTICULO 11-24-2014 F&S SIS OF RADIOLOGY COLON PC 5853 CHRONIC 11-24-2014 [place] MEDICAL KIDNEY SERV DISEASE FOUNDATION STAGE III (MODERATE) 49775 SHORTNESS 11-24-2014 F&S OF BREATH RADIOLOGY PC 7862 COUGH 11-24-2014 F&S RADIOLOGY PC 34982 MARFANS 11-23-2014 [facility] 36020 HYPOXEMIA 11-23-2014 [facility] 2875 UNSPECIFIED 11-15-2014 [facility]GENC[facility] THROMBOCYTO PHYS PENIA 90444 UNSPECIFIED 11-15-2014 [facility] TINNITUS N EMERGENCY PHYS 36282 ATRIAL 11-15-2014 [place] FIBRILLATIO COMMUNTIY N HOSPITA 7804 DIZZINESS 11-15-2014 [facility] AND N EMERGENCY GIDDINESS PHYS 47385 NAUSEA 11-15-2014 [facility] ALONE N EMERGENCY PHYS V4501 CARDIAC 11-15-2014 [place] PACEMAKER COMMUNTIY IN SITU HOSPITA 2449 UNSPECIFIED 11-04-2014 [facility] HYPOTHYROID ISM 2724 OTHER AND 11-04-2014 [facility] HYPERLIPIDE JOSEPH 1101 DERMATOPHYT 10-28-2014 [place] [facility] OSIS OF NAIL 22608 UNSPEC HTN 10-28-2014 [place] MEDICAL HEART SERV DISEASE FOUNDATION WITHOUT HEART FAIL 09662 CORONARY 10-28-2014 [place] MEDICAL ATHEROSCLER SERV OSIS [place] FOUNDATION CORONARY ARTERY 7295 PAIN IN 10-28-2014 [facility] SOFT TISSUES OF LIMB 5990 URINARY 10-19-[address] 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 7241 PAIN IN 01-25-2014 [facility] THORACIC ASSOC[facility] 00002 OTHER 12-23-2013 AURELIANO Cee MALAISE [facility] [place] KOVACS FATIGUE PSC 69702 CLOSED 12-23-2013 AURELIANO Cee FRACTURE OF PARISH KOVACS ONE RIB PSC 36272 UNSPECIFIED 12-22-2013 BARBARA SAAVEDRA SITE OF ANKLE SPRAIN AND STRAIN V1588 PERSONAL 12-22-2013 BARBARA SAAVEDRA HISTORY OF FALL 7823 EDEMA 12-21-2013 CORRIE AVA 82625 CLOSED 12-19-2013 ISI FRACTURE OF PHYSICAL RIB, MEDICINE UNSPECIFIED AND 69355 OTHER 12-15-2013 [place] MED[facility] DISEASES OF SERV SPLEEN FOUNDATIO 4400 ATHEROSCLER 12-15-2013 [place] [facility]ICAL OSIS OF SERV AORTA FOUNDATIO 4414 ABDOMINAL 12-15-2013 [place] [facility] ANEURYSM SERV WITHOUT FOUNDATIO MENTION OF RUPTURE 5738 OTHER 12-15-2013 [place] MED[facility] SPECIFIED SERV DISORDERS FOUNDATIO OF LIVER 8052 CLOS FX 12-15-2013 [place] MED[facility] DORS SERV VERTEBRA FOUNDATIO W/O MENTION SP CORD INJURY 73056 CLOSED 12-15-2013 [place] MEDICAL FRACTURE OF SERV MULTIPLE FOUNDATIO RIBS UNSPECIFIED 4178 OTHER 12-14-2013 [place] MEDICAL SPECIFIED SERV DISEASE OF FOUNDATIO PULMONARY CIRCULATION 71617 OTHER CHEST 12-14-2013 [facility] 27546 ABDOMINAL/P 12-14-2013 [facility] [place] [facility] RADIOLOGY SWELLING MASS/LUMP UNSPEC SITE 80239 CLOSED 12-14-2013 [place] [facility] FRACTURE OF SERV THREE RIBS FOUNDATION E9293 LATE 12-14-2013 [place] [facility] EFFECTS OF SERV ACCIDENTAL FOUNDATION FALL 89693 HTN CKD UNS 12-09-2013 CARDINAL W/CKD PARAM STAGE I REHABILITAT THRU STAGE ION IV/UNS 5859 CHRONIC 12-09-2013 [facility] PARAM DISEASE REHABILITAT UNSPECIFIED ION 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 ION V5419 AFTERCARE 12-09-2013 [facility] FRACTURE ION OTHER BONE V5789 OTHER 12-09-2013 [facility] SPECIFIED [facility] ION ION PROCEDURE OTHER 97368 OTH & UNS E 12-08-2013 [place] MEDICAL COLI SERV INFECTION FOUNDATION CLASS ELSW UNS SITE E8889 UNSPECIFIED 12-08-2013 OR MEDICAL FALL SERV FOUNDATION 25508 OT 12-06-2013 [place] [facility] ANOMALIES SERV PULMONARY FOUNDATIO ART PULMONARY CIRC 22057 OTHER 12-06-2013 [place] MEDICAL NONSPECIFIC SERV ABNORMAL FOUNDATIO FINDING OF LUNG FIELD 2761 HYPOSMOLALI 11-27-2013 [facility] HYPONATREMI A 2763 ALKALOSIS 11-27-2013 [facility] 2769 ELECTROLYTE 11-27-2013 [facility] DISORDERS NEC 3688 OTHER 11-27-2013 OR MEDICAL SPECIFIED SERV VISUAL FOUNDATIO DISTURBANCE S 91315 ACUT MICHELLE 11-27-2013 [facility] DEEP VES PROX LOWR EXTREM 8730 OPEN WOUND 11-27-2013 [place] MEDICAL SCALP SERV WITHOUT FOUNDATIO MENTION COMPLICATIO N 89482 ACUT 11-26-2013 OR MEDICAL MYOCARD SERV INFARCT OTH FOUNDATION SPEC SITE EPIS CARE UNS 99590 SUPRAVENTRI 11-24-2013 OR MEDICAL CULAR SERV PREMATURE FOUNDATION BEATS 9051 LATE EFF FX 11-24-2013 OR MEDICAL SPN&TRNK SERV W/O MENTION FOUNDATIO SPINAL CORD LES V5331 FITTING AND 11-24-2013 [place] MEDICAL ADJUSTMENT SERV OF CARDIAC FOUNDATION PACEMAKER 4412 THORACIC 11-22-2013 NEW ANEURYSM [facility] WITHOUT MED CTR MENTION OF RUPTURE 7242 LUMBAGO 11-22-2013 [facility] RADIOLOGY PC 43675 MUSCLE 11-22-2013 NEW WEAKNESS [facility] (GENERALIZE MED CTR D) 8690 INTRL 11-22-2013 [facility] INJURY UNS LIFE SQUAD ORGANS [...] RADIOLOGY LUMP IN PC HEAD AND NECK 93826 CLOSED 11-20-2013 NEW FRACTURE OF [facility]ORIZONS TWO [facility] MED CTR 76234 OPEN WOUND 11-20-2013 [facility] SHOULDER LIFE SQUAD REGION WITHOUT MENTION COMP 920 CONTUSION 11-20-2013 NEW OF FACE [facility] SCALP AND MED CTR NECK EXCEPT EYE V714 OBSERVATION 11-20-2013 F&S FOLLOWING RADIOLOGY OTHER PC ACCIDENT 03939 URINARY 11-04-2013 [facility] MED CTR STAFF DEVELOPMENT EDUCATOR ST 7821 RASH AND 09-07-2013 OTHER [facility] NONSPECIFIC PHYSICIANS SKIN ERUPTION V1083 PERSONAL 09-07-2013 ST HISTORY [facility] OTHER PHYSICIANS MALIGNANT NEOPLASM SKIN 11322 OTHER 07-09-2013 [place] MEDICAL DISEASES OF SERV LUNG NOT FOUNDATIO ELSEWHERE CLASSIFIED 14822 OBESITY, 07-08-2013 [facility] 40220 OTHER 07-08-2013 [facility] CARDIAC EMS DYSRHYTHMIA S 77075 OBSTRUCTIVE 07-08-2013 [place] MEDICAL CHRONIC SERV BRONCHITIS FOUNDATIO WITHOUT EXACERBAT 5119 UNSPECIFIED 07-08-2013 [facility] MEDICAL PLEURAL SERV EFFUSION FOUNDATIO 5691 RECTAL 07-08-2013 [facility] 7825 CYANOSIS 07-08-2013 [facility] EMS 03591 DIARRHEA 06-19-2013 [facility] 12190 LEUKOCYTOSI 05-27-2013 [facility] S RADIOLOGIC UNSPECIFIED PROFESSIO 52571 ANAL OR 05-27-2013 [facility] PA[facility] RADIOLOGIC PROFESSIO 28185 ABDOMINAL 05-27-2013 [facility] PAIN, RADIOLOGIC GENERALIZED PROFESSIO 2469 UNSPECIFIED 05-19-2013 DISORDER [facility] THYROID PHYSICIANS 81407 EXTRINSIC 05-19-2013 [facility] UNSPECIFIED 60647 INJURY OF 05-19-2013 [facility] AND [facility] NECK OTHER PHYSICIANS AND UNSPECIFIED 4589 UNSPECIFIED 04-08-2013 [facility] HYPOTENSION [facility] 4660 ACUTE 04-08-2013 [facility] 59016 PRECORDIAL 04-08-2013 [facility] 4270 PAROXYSMAL 02-02-2013 [facility] 94309 SINOATRIAL 02-02-2013 [facility] 4271 PAROXYSMAL 01-23-2013 [place] [facility] VENTRICULAR SERV FOUNDATIO TACHYCARDIA 5693 HEMORRHAGE 01-23-2013 [facility] EMERGENCY AND ANUS SERVICES 74017 ABDOMINAL 01-23-2013 [place] [facility], SERV EPIGASTRIC FOUNDATIO V7281 PRE-OPERATI 01-23-2013 [place] [facility] CARDIOVASCU FOUNDATIO LAR EXAMINATION 4139 OTHER AND 01-21-2013 [place] UNSPECIFIED EMERGENCY ANGINA SERVICES [place] 4168 OTHER 01-21-2013 [facility] PULMONARY HEART DISEASES 06046 OTHER 01-21-2013 [facility] RESPIRATORY ABNORMALITI ES V1259 PERS HX, 01-21-2013 [place] [facility] OTHER [facility] DISEASES OF FOUNDATIO CIRCULATORY SYSTEM 2720 PURE 01-08-2013 [place] [facility] HYPERCHOLES SERV TEROLEMIA FOUNDATIO 4179 UNSPECIFIED 01-08-2013 [place] [facility] DISEASE OF SERV PULMONARY FOUNDATIO CIRCULATION 4279 UNSPECIFIED 01-08-2013 PSYCHIATRIC CARDIAC ASHISH CO DYSRHYTHMIA EMS 4401 ATHEROSCLER 01-08-2013 [place] [facility] OF SERV RENAL F[facility]ATIO ARTERY 4419 AORTIC 01-08-2013 [place] [facility] AN[place]UR SERV UNSPEC SITE FOUNDATIO WITHOUT MENTION RUPTURE 587 UNSPECIFIED 01-08-2013 [place] [facility] RENAL [facility] SCLEROSIS FOUNDATIO 7850 UNSPECIFIED 01-08-2013 [facility] TACHYCARDIA EMS V1389 PERSONAL 01-08-2013 [facility] OTHER SPECIFIED DISEASES 61891 OTHER 11-21-2012 [facility]OLOG[facility] CONDITIONS [facility] 04302 ALTERED 11-21-2012 [facility] 98947 ACUTE AND 11-17-2012 [place] [facility] CHRONIC [facility] RESPIRATORY F[facility]AT[facility] FAILURE 7802 SYNCOPE AND 11-17-2012 [place] [facility] COLLAPSE SERV F[facility]AT[facility] 59427 UNSPECIFIED 11-15-2012 [facility] CONSTIP[facility] N 5849 ACUTE 11-15-2012 [facility] FAILURE UNSPECIFIED 29084 ABDOMINAL 11-15-2012 [place] [facility] [place], SERV UNSPECIFIED FOUNDATIO SITE 24971 ABDOMINAL 11-15-2012 NEW PA[facility] OTHER [facility] SPECIFIED MED CTR SITE 2722 MIXED 09-15-2012 [place] [facility] HYPERLIPIDE SERV [facility] FOUNDATIO 73423 UNSPECIFIED 09-15-2012 [place] [facility] [place] [address] OBST 09-15-2012 [place] [facility] CHRON[facility] BRONCHITIS F[facility]AT[facility] W/ACUTE BRONCHITIS V4589 OTHER 07-14-2012 [place] [facility] POSTSURGICA SERV L STATUS FOUNDATIO OTHER 4553 EXTERNAL 07-08-2012 [facility] HEMORRHOIDS VEE WITHOUT MENTION COMP 90166 UNSPECIFIED 05-29-2012 ST [facility] PYELONEPHRI PHYSICIANS TIS 86811 ABDOMINAL 05-29-2012 PAIN RIGHT [place] UPPER PHYSICIANS QUADRANT 4519 PHLEBITIS&T 04-29-2012 HROMBOPHLEB [facility] ITIS OF PHYSICIANS UNSPECIFIED SITE 7881 DYSURIA 04-29-2012 [facility] PHYSICIANS V1302 PERSONAL 04-22-2012 HISTORY OF [place] URINARY PHYSICIANS TRACT INFECTION 73082 OBSTRUCTIVE 04-14-2012 [facility] 4359 UNSPECIFIED 03-28-2012 [place] [facility] TRANSIENT SERV CEREBRAL FOUNDATIO ISCHEMIA 4370 CEREBRAL 03-27-2012 [place] MEDICAL ATHEROSCLER SERV OSIS FOUNDATIO 94426 AORTIC 03-27-2012 [place] MEDICAL ECTASIA SERV UNSPECIFIED FOUNDATIO SITE 4389 UNSPEC LATE 01-07-2012 [place] MEDICAL EFF SERV CEREBRVASC FOUNDATIO DZ DUE CEREBRVASC DZ 31591 DEHYDRATION 12-01-2011 [facility] GER[facility]DO ADDIE 30358 UNSPECIFIED 12-01-2011 [facility] SITE UNSPECIFIED V0481 NEED 11-29-2011 PROPHYLACTI [facility] C PHYSICIANS VACCINATION &INOCULATIO N FLU 0088 INTESTINAL 10-09-2011 INFECTION [facility] DUE TO PHYSICIANS OTHER ORGANISM NEC 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 ADDIE 4011 ESSENTIAL 04-02-2011 HYPERTENSIO [facility] N, BENIGN PHYSICIANS 09319 SHIGA 03-15-2011 INFECTIOUS TOXIN-PRODU DISEASE CING CONSULTAN ESCHERICHIA COLI 7907 BACTEREMIA 03-15-2011 INFECTIOUS DISEASE CONSULTAN 5758 OTHER 03-12-2011 RADIOLOG[facility] SPECIFIED ASSOCIATES DISORDER OF PSC GALLBLADDER 31254 INF DUE OTH 03-10-2011 INFECTIOUS DISEASE GM-NEGATIVE CONSULTAN ORGANISMS CCE & UNS SITE 7813 LACK OF 03-09-2011 [facility] COORD[facility] AMBULANCE N V5861 LONG-TERM 03-09-2011 [facility] (CURRENT) [facility] USE OF ADDIE ANTICOAGULA NTS 27590 GENERALIZED 02-24-2011 [place] [address] ESOPHAGEAL 02-24-2011 [place] [address] ATHEROSCLER 12-14-2010 [facility] CE EXTREMITIES UNSPEC 36136 NERVOUSNESS 12-12-2010 [facility] G[facility] ADDIE 5789 UNSPECIFIED 11-12-2010 [facility] [place] GASTROINTES TINAL TRACT 11790 DYSPHAGIA 11-12-2010 [facility] [place] 88616 OTHER 11-11-2010 [facility] ESOPHAGITIS [facility] [place] 63842 OTHER SPEC 11-11-2010 [facility] WITHOUT [place] MENTION HEMORRHAGE V0382 NEED PROPH 11-07-2010 [facility] [place] [facility] ER PNEUMONE 2768 HYPOPOTASSE 11-06-2010 [place] [address] OTHER ACUTE 11-06-2010 [facility] [place] ADDIE 85568 ATRIAL 09-29-2010 [facility] ADDIE 4289 UNSPECIFIED 09-29-2010 [facility] FAILURE 65880 THORACIC 09-29-2010 [facility] [place] ECTASIA [facility] ER 7840 HEADACHE 09-29-2010 [facility] ER 7866 SWELLING, 09-29-2010 . 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 4149 UNSPECIFIED 07-15-2010 [facility] CHRONIC [facility] ISCHEMIC HEART DISEASE 89906 CHRONIC 07-15-2010 [facility] SYSTOLIC [facility] HEART FAILURE 88639 SEVERE 07-15-2010 [facility] SEPSIS [facility] 5756 CHOLESTEROL 07-14-2010 [facility] RADIOLOGY GALLBLADDER ASSOCIAT 7892 SPLENOMEGAL 07-14-2010 [facility] Y RADI[facility]Y ASSOCIAT 5963 DIVERTICULU 07-11-2010 [facility] OF RADIOLOGY BLADDER ASSOCIAT 0414 ESCHERICHIA 07-09-2010 [facility], COLI STAFF DEVELOPMENT EDUCATOR INFECTION [facility] IN CCE & HOS UNS SITE 2865 HEMORRHAGIC 07-09-2010 JULIÁN ARAUZ D/O INTRINSIC CIRC ANTICOAG AB/INHIB 49336 AC MICHELLE 07-09-2010 [facility], EMBO & STAFF DEVELOPMENT EDUCATOR THROMB [facility] UNSPEC DEEP HOS VES LOWER EXT 7993 UNSPECIFIED 07-09-2010 [facility], DEBILITY STAFF DEVELOPMENT EDUCATOR [facility] 63632 SEPSIS 07-09-2010 [facility], STAFF DEVELOPMENT EDUCATOR [facility] 4478 OTHER 05-27-2010 [place] [facility] SPECIFIED SERV DISORDERS FOUNDATIO OF ARTERIES&AR TERIOLES 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 OLD 05-25-2010 [facility] INFARCTION 8470 NECK SPRAIN 04-18-2010 [facility] AND STRAIN [place] V1581 PERS HX 04-18-2010 [facility] NONCOMPLIAN [place] CE W/MED TX PRS HAZARDS HLTH 486 PNEUMONIA, 04-07-2010 [facility] ORGANISM [place] UNSPECIFIED 4928 OTHER 03-24-2010 [facility] EMPHYSEMA [facility]Y ASSOCIAT 515 POSTINFLAMM 03-24-2010 [facility] ATORY RADIOLOGY PULMONARY ASSOCIAT FIBROSIS 65730 PAINFUL 03-24-2010 [facility] REGLA RESPIRATION 7864 ABNORMAL 03-22-2010 [facility] V1269 PERSONAL 03-22-2010 NEW H[facility]ORY [facility] OTHER MED CTR DISEASES RESPIRATORY SYS 3961 MITRAL 02-14-2010 [facility] VALVE [facility] STENOSIS&[place] [address] CLOSED 02-07-2010 [facility] FRACTURE OF ORTHOPAEDIC S PLC UNSPECIFIED PART OF FIBULA 8248 UNSPECIFIED 01-06-2010 [place] [facility]OSED MEDICAL FRACTURE OF IMAGING ASS ANKLE 9054 LATE EFFECT 12-27-2009 [facility]OSPITAL FRACTURE OF LOWER EXTREMITIES V5416 AFTERCARE 12-27-2009 [facility] TRAUMATIC FRACTURE LOWER LEG V674 TREATMENT 12-27-2009 [facility] FRACTURE ASSOCIAT FOLLOW-UP EXAMINATION 8242 CLOSED 12-20-2009 [facility] FRACTURE OF HOSPITAL LATERAL MALLEOLUS 4242 TRICUSPID 12-15-2009 [facility] SPEC DISORDERS SPEC NONRHEUMATI C 5363 GASTROPARES 12-15-2009 [facility] 7851 PALPITATION 12-15-2009 [facility] 30593 ABNORMAL 12-15-2009 NEW COAGULATION [facility] ER 9190 ABRASION/FR 12-15-2009 NEW ICION [facility] OTH MX&UNS MEDICALCENT SITE W/O ER INF 19326 HEAD 12-15-2009 ACUTE CARE INJURY, BILLING [place] [facility]PEC[facility]IED [facility] 9598 INJURY 12-15-2009 ACUTE CARE OTH&UNSPEC BILLING [place] [facility] SITES INCL MULTIPLE E8881 FALL 12-15-2009 NEW RESULTING [facility] IN STRIKING MEDICALCENT AGAINST ER OTHER OBJECT V5881 FITTING AND 12-15-2009 [facility] ADJUSTMENT RADIOLOGY OF INC VASCULAR CATHETER 33162 PAIN IN 12-14-2009 [facility] JOINT LIFE SQUAD PELVIC REGION AND THIGH 69986 PAIN IN 12-14-2009 [facility] JOINT, LIFE SQUAD ANKLE AND FOOT 7231 CERVICALGIA 12-14-2009 [facility] LIFE SQUAD 64560 OTHER 12-14-2009 [facility] INJURY OF RADIOLOGY OTHER SITES INC OF TRUNK 9593 INJURY 12-14-2009 [facility] OTHER&UNSPE RADIOLOGY CIFIED INC [facility] [employer]&WRI ST 89740 OTHER 12-05-2009 [facility] HOSPITAL BEATS 7931 NONSPEC 11-24-2009 [facility] F[facility] RAD RADIOLOGY OTH EXAM ASSOCIAT BODY STRUCT LUNG FIELD 07797 THYROTOX 11-22-2009 [facility] W/O [place] GOITER/OTH CAUSE W/O CRISIS 5183 PULMONARY 11-22-2009 [facility] EOSINOPHILI RADIOLOGY A ASSOCIAT 12558 ACUTE 10-29-2009 [facility] MEDICAL VENOUS EMBO SERV AND THROMB FOUNDATIO UPPER EXTREM UNS 70714 HEMIPL 10-21-2009 [facility]IDE [facility] DUE CEREBRVASC DISEASE 60957 SWELLING OF 10-21-2009 [place] [facility] LIMB SERV FOUNDATIO V5873 AFTERCARE 10-21-2009 [facility] FOLLOWING [facility] SURGERY HOSP CIRC SYSTEM NEC 3940 MITRAL 10-19-2009 [place] [facility] STENOSIS SERV FOUNDAT[facility] V4581 POSTSURGICA 10-15-2009 [place] [facility] L SERV AORTOCORONA FOUNDATIO RY BYPASS STATUS 4260 ATRIOVENTRI 10-14-2009 [place] [facility] CULAR [facility] BLOCK, FOUNDAT[facility] COMPLETE 514 PULMONARY 10-14-2009 [place] [facility] CONGESTION SERV AND FOUNDATIO HYPOSTASIS 48181 OTHER 10-14-2009 [place] [facility] PULMONARY SERV INSUFFICIEN FOUNDATIO CY NEC 49323 UNSPECIFIED 10-13-2009 [place] [facility] SERV ATRIOVENTRI FOUNDATIO CULAR BLOCK 28242 ACUTE 10-13-2009 [place] [facility] RESPIRATORY SERV FAILURE FOUNDATIO 12361 MECH 10-13-2009 [place] [facility] COMPLICAT[place] SERV N DUE HEART FOUNDATIO VALVE PROSTHESIS V550 ATTENTION 10-12-2009 OR MEDICAL TO SERV TRACHEOSTOM FOUNDATIO Y 82170 OCCLUSION&S 10-10-2009 [place] [facility] TENOSIS SERV CAROTID FOUNDATIO ARTERY W/INFARCT 4449 EMBOLISM 10-10-2009 [place] [facility] AND SERV THROMBOSIS FOUNDATIO OF UNSPECIFIED ARTERY V421 HEART 10-10-2009 [place] [facility] REPLACED BY SERV TRANSPLANT FOUNDATIO V7282 PRE-OPERATI 10-10-2009 [place] [facility] VE SERV RESPIRATORY FOUNDATIO EXAMINATION 2859 UNSPECIFIED 10-08-2009 [place] [facility] ANEMIA SERV FOUNDAT[facility] V7284 UNSPECIFIED 10-08-2009 [place] [facility] SERV PRE-OPERATI FOUNDATIO VE EXAMINATION 5185 PULMONARY 10-07-2009 [facility] CY FOLLOW TRAUMA & SURGERY 25102 UNSPECIFIED 10-06-2009 [facility] SCH[facility]IDT ARTHROPATHY SHOULDER REGION 12660 ACUT 09-28-2009 [facility] PYELONEPHRI [facility] TIS W/O LES RENAL MEDULRY NECROS 7936 NONSPEC ABN 09-28-2009 [facility] FIND[facility] RAD RADIOLOGY & OTH EXAM ASSOCIAT ABDOMINAL AREA 3963 MITRAL 09-05-2009 [facility] INSUFF&AORT IC VALVE INSUFF 37912 UNSPECIFIED 08-08-2009 [place] MEDICAL CEREBRAL SERV ARTERY FOUNDATIO OCCLUSION W/INFARCT V173 FAMILY 08-08-2009 [facility] ISCHEMIC HEART DISEASE 7030 INGROWING 07-07-2009 [facility] SCHMIDT 39973 INF&INFLAM 06-23-2009 [facility] MEDICAL REACT DUE SERV CARD DEVICE FOUNDATIO IMPLANT&GRA FT 4299 UNSPECIFIED 06-22-2009 [facility] HEART LIFE SQUAD DISEASE 7856 ENLARGEMENT 06-22-2009 [facility] MEDICAL OF LYMPH SERV NODES FOUNDATIO 93591 OTHER 06-04-2009 [facility] NS DUE HEART VALVE PROSTHESIS E8781 ABNORM 06-04-2009 [facility] REACT D/T HOSPITAL ARTIFICIAL PRESS TENDER STAR SIGNAL DEVICE IMPLNT 51368 CONTUSION 05-06-2009 [facility] OF THIGH [place] Croey 9961 [facility] COMP 05-06-2009 [facility]EL[facility] SCHMIDTH [place] Corey VASCULAR DEVICE IMPLANT&GRA FT 4536 VENOUS EMBO 05-02-2009 [facility] & THROMB RADIOLOGY SUPERFICIAL ASSOCIATES VES LOWR PSC EXTREM 7469 UNSPECIFIED 05-02-2009 [facility] CONGENITAL [place] Corey ANOMALY OF HEART 7822 LOCALIZED 05-02-2009 [facility] SWELLING [place] OR LUMP 9063 LATE EFFECT 05-02-2009 [facility] [place] [facility] CONTUSION 04404 [facility] COMP 05-02-2009 [facility] UNSPEC CARD [place] Core[place] DEVICE IMPLANT&[place] [address] HEMATOMA 05-01-2009 ACUTE CARE COMPLICATIN BILLING [place] [facility] PROCEDURE NEC E8790 ABNORMAL 05-01-2009 NEW REACTION/CO [facility] MPLICATION MED CTR D/T CARDIAC CATH 00446 CONTUSION 04-26-2009 [facility] 60052 ACUT 04-24-2009 NEW [facility] [place] [facility] SITE EPIS CARE UNS 16980 OTH 04-23-2009 NEW NONSPECIFIC [facility] ABNORM CV MED CTR SYSTEM FUNCTION STUDY 4240 MITRAL 09-13-2008 TAMIALDBOWEN, VALVE CHANA DISORDERS 3674 PRESBYOPIA 09-08-2008 [facility] V641 SURG/OTH 08-25-2008 [facility] PROC NOT MEM HOSP DONE INC BECAUSE CONTRAINDIC ATION 7859 OTHER 07-16-[address] [facility] INVOLVING CARDIOVASCU LAR SYSTEM 4439 UNSPECIFIED 06-23-2008 [facility], PERIPHERAL ALLYSON V VASCULAR DISEASE 7038 OTHER 06-23-2008 [facility], SPECIFIED ALLYSON V DISEASE OF NAIL 2800 IRON 2008 [facility] ANEMIA SECONDARY TO BLOOD LOSS 7830 ANOREXIA 2008 [facility] 2693 MINERAL 11-05-2007 [facility] NOT ELSEWHERE CLASSIFIED 4550 INTERNAL 08-25-2007 [place] [facility] HEMORRHOIDS SERV WITHOUT FOUNDATIO MENTION COMP 78710 ACUT DUODEN 08-25-2007 [place] [facility] ULCER SERV W/PERF W/O FOUNDATIO MENTION OBSTRUCTION 5781 BLOOD IN 08-25-2007 [facility] STOOL [facility] INC 7921 NONSPECIFIC 08-25-2007 [place] [facility] ABNORMAL SERV FINDING IN FOUNDATIO STOOL CONTENTS 9971 CARDIAC 08-25-2007 [facility] COMPLICATIO MEM HOSP NS NEC INC 7937 NONSPC ABN [facility]IND[facility] RADIOLOGY & OTH EXM ASSOCIATES MUSCULSKELT PSC L SYS 77349 MAMMOGRAPHI 07-22-2007 [facility] C RADIOLOGY MICROCALCIF ASSOCIATES ICATION PSC V7612 OTHER 07-[facility] SCREEN[facility] RAD[facility] MAMMOGRAM ASSOCIATES PSC 3319 UNSPECIFIED 07-21-[facility] CEREBRAL RADIOLOGY DEGENERATIO ASSOCIATES N PSC [...] 9 Y NE 08 17 17 UN DE 7 TY CH [address] WALKER [...] CO 5 Y 61 15 15 UN DE SO 0 TY CH DI EL UM DR HERNANDEZ 10 S 0 IN MG C CA PS UL E DO 00 02 12 5 60 30 GR 20 WI Ac CU 53 -2 -0 0. AN 55 LL ti SA 63 6- 3- 00 T 20 OB ve TE 75 20 20 0 CO 3 Y 61 14 14 UN DE SO 0 TY CH DI EL UM DR HERNANDEZ 10 S 0 IN MG C CA PS UL E DO 00 02 07 5 60 30 GR 20 WI Ac CU 53 -2 -2 0. AN 55 LL ti SA 63 6- 1- 00 T 20 OB ve TE 75 20 20 0 CO 3 Y 61 14 14 UN DE SO 0 TY CH DI EL UM DR LE UG 10 S 0 IN MG C CA PS UL E 00 03 07 4 30 30 GR 20 WI Ac PI 90 -2 -0 0. AN 60 LL ti R- 47 8- 8- 00 T 87 OB ve LO 70 20 20 0 CO 1 Y W 41 14 14 UN DE EC 8 TY CH EL 81 DR LE UG MG S IN TA C BL ET 00 02 06 5 60 30 GR 20 WI Ac 18 -2 -1 0. AN 55 LL ti 24 6- 6- 00 T 19 OB ve 14 20 20 0 CO 1 Y 12 14 14 UN DE [address] LE UG S IN C 00 03 06 4 30 30 GR 20 WI Ac PI 90 -2 -0 0. AN 60 LL ti R- 47 8- 3- 00 T 87 OB ve LO 70 20 20 0 CO 1 Y W 41 14 14 UN DE EC 8 TY CH EL 81 DR LE UG MG S IN TA C BL ET 00 02 05 5 60 30 GR 20 WI Ac 18 -2 -0 0. AN 55 LL ti 24 6- - T 19 OB ve 14 20 20 0 CO 1 Y 12 14 14 UN DE [address] LE UG S IN C DO 00 02 04 5 60 30 GR 20 WI Ac CU 53 -2 -2 0. AN 55 LL ti SA 63 6- 4- 00 T 20 OB ve TE 75 20 20 0 CO 3 Y 61 14 14 UN DE SO 0 TY CH DI EL UM DR LE UG 10 S 0 IN MG C CA PS UL E 00 03 04 4 30 30 GR 20 WI Ac PI 90 -2 -2 0. AN 60 LL ti R- 47 8- 4- 00 T 87 OB ve LO 70 20 20 0 CO 1 Y W 41 14 14 UN DE EC 8 TY CH EL 81 DR LE UG MG S IN TA C BL ET 00 02 03 5 60 30 GR 20 WI Ac 18 -2 -2 0. AN 55 LL ti 24 6- 8- 00 T 19 OB ve 14 20 20 0 CO 1 Y 12 14 14 UN DE [address] LE UG S IN C 00 03 03 4 30 30 GR 20 WI Ac PI 90 -2 -2 0. AN 60 LL ti R- 47 8- 8- 00 T 87 OB ve LO 70 20 20 0 CO 1 Y W 41 14 14 UN DE EC 8 TY CH EL 81 DR HERNANDEZ MG S IN TA C BL ET DO 00 02 02 5 60 30 GR 20 WI Ac CU 53 -2 -2 0. AN 55 LL ti SA 63 6- 6- 00 T 20 OB ve TE 75 20 20 0 CO 3 Y 61 14 14 UN DE SO 0 TY CH DI EL UM [...] DR MAURO MERINO LL S IA IN [facility] 00 02 01 11 30 30 GR 19 TH Ac PI 90 -0 -0 0. AN 94 RE ti R- 47 5- 3- 00 T 47 LK ve LO 70 20 20 0 CO 0 EL W 41 13 14 UN D EC [address] TY [address] MAURO MERINO LL MG S IA IN [facility] C F BL ET 00 01 01 0 60 30 GR 20 WI Ac 18 -0 -0 0. AN 45 LL ti 24 3- 3- 00 T 88 OB ve 14 20 20 0 CO 3 Y 12 14 14 UN DE [address] HERNANDEZ S IN C DO 00 01 01 0 60 30 GR 20 WI Ac CU 53 -0 -0 0. AN 45 LL ti SA 63 3- 3- 00 T 88 OB ve TE 75 20 20 0 CO 2 Y 61 14 14 UN DE SO 0 TY CH DI EL UM [...] CO 8 Y 12 13 13 UN DE [address] WALKER UG S IN C DO 00 06 12 5 60 30 GR 20 WI Ac CU 53 -1 -0 0. AN 13 LL ti SA 63 0- 2- 00 T 43 OB ve TE 75 20 20 0 CO 1 Y 61 13 13 UN DE SO 0 TY CH DI EL UM [...] CO 8 Y 12 13 13 UN DE [address] AWLKER UG S IN C DO 00 06 11 5 60 30 GR 20 WI Ac CU 53 -1 -0 0. AN 13 LL ti SA 63 0- 4- 00 T 43 OB ve TE 75 20 20 0 CO 1 Y 61 13 13 UN DE SO 0 TY CH DI EL UM [...] MAURO MERINO LL MG S IA IN [facility] C F BL ET DO 00 06 10 5 60 30 GR 20 WI Ac CU 53 -1 -0 0. AN 13 LL ti SA 63 0- 7- 00 T 43 OB ve TE 75 20 20 0 CO 1 Y 61 13 13 UN DE SO 0 TY CH DI EL UM DR WALKER UG 10 S 0 IN MG C CA PS UL E 00 06 10 5 60 30 GR 20 WI Ac 18 -1 -0 0. AN 13 LL ti 24 0- 7- 00 T 44 OB ve 14 20 20 0 CO 8 Y 12 13 13 UN DE [address] WALKER UG [...] CO 8 Y 12 13 13 UN DE [address] HERNANDEZ S IN C DO 00 06 08 5 60 30 GR 20 WI Ac CU 53 -1 -1 0. AN 13 LL ti SA 63 0- 2- 00 T 43 OB ve TE 75 20 20 0 CO 1 Y 61 13 13 UN DE SO 0 TY CH DI EL UM DR HERNANDEZ 10 S 0 IN MG C CA PS UL E 00 06 07 5 60 30 GR 20 WI Ac 18 -1 -0 0. AN 13 LL ti 24 0- 9- 00 T 44 OB ve 14 20 20 0 CO 8 Y 12 13 13 UN DE [address] HERNANDEZ S IN C DO 00 06 07 5 60 30 GR 20 WI Ac CU 53 -1 -0 0. AN 13 LL ti SA 63 0- 9- 00 T 43 OB ve TE 75 20 20 0 CO 1 Y 61 13 13 UN DE SO 0 TY CH DI EL UM [...] CO 1 Y 61 13 13 UN DE SO 0 TY CH DI EL UM DR HERNANDEZ 10 S 0 IN MG C CA PS UL E 00 06 06 5 60 30 GR 20 WI Ac 18 -1 -1 0. AN 13 LL ti 24 0- 0- 00 T 44 OB ve 14 20 20 0 CO 8 Y 12 13 13 UN DE [address] HERNANDEZ S [...] DR MAURO MERINO LL S IA IN [facility] 00 02 05 11 30 30 GR [...] DR MAURO MERINO LL S IA IN [facility] 00 02 04 11 30 30 GR [...] DR MAURO MERINO LL S IA IN [facility] 00 02 02 11 30 30 GR [...] DR WADE UG LL S IA IN [facility] 00 10 12 4 60 30 GR [...] DR WI UG LL S IA IN [facility] 00 03 10 3 10 10 GR [...] MG UG LL S IA CA IN [facility] C F UL E 00 03 09 5 60 30 GR 19 TH Ac 18 -1 -0 0. AN 43 RE ti 24 T 03 LK ve 14 20 20 0 CO 7 EL 12 12 12 UN D [address] WI UG LL S IA IN [facility] F 00 03 08 5 [...] DR WI UG LL S IA IN [facility] F 00 03 05 5 60 30 GR 19 TH Ac 18 -1 -2 0. AN 43 RE ti 24 T 03 LK ve 14 20 20 0 CO 7 EL 12 12 12 UN D [address] WI UG LL S IA IN [facility] 00 03 04 3 10 10 GR [...] DR MAURO MERINO LL S IA IN [facility] 00 03 03 5 60 0 GR 19 TH Ac 18 -1 -2 0. AN 43 RE ti 24 3- 8- 00 T 03 LK ve 14 20 20 0 CO 7 EL 12 12 12 UN D [address] MAURO MERINO LL S IA IN [facility] 00 09 02 5 60 0 GR 19 TH Ac 18 -0 -2 0. AN 09 RE ti 24 7- 0- 00 T 34 LK ve 14 20 20 0 CO 3 EL 12 11 12 UN D [address] MAURO MERINO LL S IA IN [facility] 00 09 01 5 60 0 GR 19 TH Ac 18 -0 -0 0. AN 09 RE ti 24 7- 4- 00 T 34 LK ve 14 20 20 0 CO 3 EL 12 11 12 UN D [address] MAURO MERINO LL S IA IN [facility] 00 12 12 2 10 10 GR [...] DR MAURO MERINO LL S IA IN [facility] 00 05 11 1 30 30 GR 18 GA Ac PI 90 -1 -0 .0 AN 90 NT ti R- 47 1- 2- 00 T 52 LE ve LO 70 20 20 CO 1 Y W 41 11 11 UN JA EC 8 TY NA R 81 DR MERINO MG S IN [facility] ET 00 05 10 1 30 30 [...] 1- 4- 00 R 74 Av ve DE 90 20 20 PH 7 ai DE [...] 1- 7- 00 R 74 LD ve DE 90 20 20 PH 7 IN DE [...] 1- 3- 0 R 61 LD ve DE 90 20 20 PH 0 IN DE [...] 6- 6- 00 R 57 Av ve DE 90 20 20 PH 9 ai DE [...] 3- 1- 0 R 47 Av ve DE 90 20 20 PH 3 ai DE [...] 3- 8- 0 R 47 Av ve DE 90 20 20 PH 3 ai DE [...] 3- 4- 00 R 47 Av ve DE 90 20 20 PH 3 ai DE [...] 3- 7- 00 R 47 Av ve DE 90 20 20 PH 3 ai DE [...] 3- 2- 00 R 47 Av ve DE 90 20 20 PH 3 ai DE [...] 3- 2- 00 R 47 Av ve DE 90 20 20 PH 3 ai DE [...] 3- 0- 00 R 47 Av ve DE 90 20 20 PH 3 ai DE [...] 00 10 5 D 26 No Ac [place] 17 -0 -0 .0 & 88 t [...] 3- 7- 00 R 47 Av ve DE 90 20 20 PH 3 ai DE [...] 3- 6- 00 R 47 Av ve DE 90 20 20 PH 3 ai DE [...] 3- 4- 00 R 47 Av ve DE 90 20 20 PH 3 ai DE [...] Procedure DOS Code Location Performer Comment [place] [id number] [facility] ROUTINE 7 [facility] ECG W/LEAST PHYSICIAN 12 LDS S W/I&R URNLS DIP 76594 ST [facility] 7 [facility] STICK/TAB LET RGNT PHYSICIAN NON-AUTO S W/O MICRSCP PRTBLE [id number] JANAE CARDOSO GASEOUS 7 HOME HOME O2 SYS MEDICAL MEDICAL RENT; [facility]M [facility] O2 CONC 1 E1390 JANAE CARDOSO [place] 7 HOME HOME 85%/>02 MEDICAL MEDICAL CONC AT EQUIPME [facility]QU[facility]ME [facility] FLW RATE CULTURE [address] BACTERIAL 7 GERALDO GERALDO QUANTTATI HEALTHCAR HEALTHCAR VE COLONY E EDGE E EDGE COUNT URINE URNLS DIP 39592 ST RUIZ 7 GERALDO STICK/TAB LET RGNT PHYSICIAN NON-AUTO S W/O MICRSCP INJECTION J0696 ST ST 7 GERALDO GERALDO CEFTRIAXO NE SODIUM PHYSICIAN PHYSICIAN PER 250 S S MG THERAPEUT [address] RUIZ IC 7 GERALDO PROPHYLAC TIC/DX PHYSICIAN INJECTION S SUBQ/IM REPAIR 32767 DERMATOLO MUSIC INTERMEDI 7 GY ATE CONSULTAN S/A/T/E TS PSC 2.6-[place] [address] AMERIPATH AMERIPATH SURG 7 PATHOLOGY [facility] I, INC. GROSS&KIRILL ROSCOPIC EXAM EXCISION 69295 DERMATOLO MUSIC MALIGNANT 7 GY LESION CONSULTAN TRUNK/ARM TS PSC /LEG > 4.0 [facility] G0463 SUSAN DAVIS OUTPATIEN 7 [facility] INC INC VISIT ASSESS & MGMT PT THERAPEUT [address] ST RUIZ IC 7 GERALDO PROPHYLAC TIC/DX PHYSICIAN INJECTION S SUBQ/IM INJECTION J1040 ST 7 GERALDO GERALDO METHYLPRE DNISOLONE PHYSICIAN PHYSICIAN ACETATE S S 80 MG PRTBLE E0431 JANAE JANAE GASEOUS 7 HOME HOME O2 SYS MEDICAL MEDICAL RENT; EQUIPME EQUIPME FLWMTR HUMIDFR&M ASK O2 CONC 1 E1390 JANAE PÉREZRELL DEL PORT 7 HOME HOME 85%/>02 MEDICAL MEDICAL CONC AT EQUIPME EQUIPME PRSC FLW RATE DESTRUCTI 84430 DERMATOLO MUSIC ON MAL 7 GY LESION CONSULTAN TRUNK/ARM TS PSC /LEG 3.1-4.0CM DESTRUCTI 01070 DERMATOLO MUSIC ON 7 GY PREMALIGN CONSULTAN ANT TS PSC LESION 2-14 EA DESTRUCTI 55981 DERMATOLO MUSIC ON 7 GY PREMALIGN CONSULTAN ANT TS PSC LESION 1ST DESTRUCTI 51256 DERMATOLO MUSIC ON MAL 7 GY LESION CONSULTAN TRUNK/ARM TS PSC /LEG 1.1-2.0CM TRANSITIO 96328 [facility] GERALDO MANAGE SRVC 14 PHYSICIAN DAY S DISCHARGE PRTBLE E0431 JANAE JANAE GASEOUS 7 HOME HOME O2 SYS MEDICAL MEDICAL RENT; EQUIPME EQUIPME FLWMTR HUMIDFR&M ASK O2 CONC 1 E1390 JANAE JANAE [place] 7 HOME HOME 85%/>02 MEDICAL MEDICAL CONC AT EQUIPME EQUIPME [facility]SC [facility] 40376 [facility] DISCHARGE 7 GERALDO II DAY MANAGEMEN PHYSICIAN T 30 S MIN/< SBSQ 44824 [facility] 7 [facility] CARE/DAY 25 PHYSICIAN MINUTES S SBSQ 68766 [facility] 7 [facility] CARE/DAY 15 PHYSICIAN MINUTES S ECG 10099 [facility] ROUTINE 7 GERALDO ECG MED CTR W/LEAST 12 LDS I&R ONLY INITIAL 05083 [facility] 7 GERALDO II CARE/DAY 50 PHYSICIAN MINUTES S IAADIADOO 56[address] [facility] 7 GERAL[place] [address] AMERIPATH AMERIPATH SURG 7 PATHOLOGY [facility] I, INC. GROSS&KIRILL ROSCOPIC EXAM BX SKIN 78771 DERMATOLO REYNALDO SUBCUTANE 7 GY OUS&/MUCO CONSULTAN US TS PSC MEMBRANE 1 LESION DESTRUCTI 14262 DERMATOLO REYNALDO ON 7 GY PREMALIGN CONSULTAN ANT TS PSC LESION 1ST DESTRUCTI 90417 DERMATOLO REYNALDO ON 7 GY PREMALIGN CONSULTAN ANT TS PSC LESION 2-14 EA BIOPSY 21389 DERMATOLO REYNALDO SKIN 7 GY SUBQ&/MUC CONSULTAN OUS TS PSC MEMBRANE EA ADDL LESN O2 CONC 1 E1390 JANAE CARDOSO [place] 7 HOME HOME 85%/>02 MEDICAL MEDICAL CONC AT [facility] FLW RATE PRTBLE E0431 JANAE CARDOSO GASEOUS 7 HOME HOME O2 SYS [facility] MED[facility] R[facility]; [facility] ASK URNLS DIP [address]32 [address] RUIZ 7 GERALDO STICK/TAB LET RGNT PHYSICIAN NON-AUTO S W/O MICRSCP INJECTION J1040 ST ST 7 GERALDO GERALDO METHYLPRE DNISOLONE PHYSICIAN PHYSICIAN ACETATE S S 80 MG THERAPEUT 25217 ST [facility] IC 7 GERALDO PROPHYLAC TIC/DX PHYSICIAN INJECTION S SUBQ/IM PRTBLE E0431 JANAE CARDOSO GASEOUS 7 HOME HOME O2 SYS MEDICAL MEDICAL RENT; EQUIPME EQUIPME FLWMTR HUMIDFR&M ASK O2 CONC 1 E1390 JANAE CARDOSO [place] 7 HOME HOME 85%/>02 MEDICAL MEDICAL CONC AT [facility] FLW RATE COMPREHEN 44659 [facility] SIVE [address] [place] [address] METABOLIC ADDIE ADDIE PANEL LIPID 71115 [facility] PANEL 7 [facility] ADDIE ADDIE IPRATROPI J7644 ADDIE ADDIE UM [address] [place] [address] BROMIDE DRUGS, DRUGS, INHAL INC. INC. NON-CP U DOSE PER MG ALBUTEROL J7613 ADDIE ADDIE INHAL [address] [place] [address] NON-CP DRUGS, DRUGS, PROD THRU INC. INC. DME U DOSE 1 MG PHRM Q0513 ADDIE ADDIE DISPENSIN [address] [place] [address] G FEE DRUGS, DRUGS, INHALATIO INC. INC. N RX; PER 30 DAYS BLOOD 50011 [facility] COUNT [address] [place] [address] COMPLETE ADDIE ADDIE AUTO&AUTO DIFRNTL WBC COLLECTIO 76523 [facility] N VENOUS [address] [place] [address] BLOOD [place] [address] [facility] THYROID [address] [place] [address] STIMULATI ADDIE ADDIE NG HORMONE TSH PRTBLE E0431 JANAE CARDOSO GASEOUS 7 HOME HOME O2 SYS MEDICAL MEDICAL RENT; EQUIPME EQUIPME FLWMTR HUMIDFR&M ASK O2 CONC 1 E1390 JANAE CARDOSO [place] 7 HOME HOME 85%/>02 MEDICAL MEDICAL CONC AT [facility] FLW RATE INJECTION J1040 [address] METHYLPRE DNISOLONE PHYSICIAN PHYSICIAN ACETATE S S 80 MG THERAPEUT 81457 [facility] IC 7 GERALDO PROPHYLAC TIC/DX PHYSICIAN INJECTION S SUBQ/IM NONEMERG A0120 [facility] CO TRNSPRT: 6 [facility] 9 TRANSIT MTN AREA/OTH SYS DAY CARE S5100 ACTIVE ACTIVE SERVICES 6 DAY OF DAY OF ADULT; [facility] PER 15 N N MINUTES PRTBLE E0431 JANAE JANAE GASEOUS 6 HOME HOME O2 SYS MEDICAL MEDICAL RENT; EQUIPME EQUIPME FLWMTR HUMIDFR&M ASK O2 CONC 1 E1390 JANAE JANAE [place] 6 HOME HOME 85%/>02 MEDICAL MEDICAL CONC AT EQUIPME EQUIPME PRSC FLW RATE THERAPEUT [address] [facility] IC 6 GERALDO SUSIE PROPHYLAC TIC/DX PHYSICIAN INJECTION S SUBQ/IM INJECTION J1040 ST ST 6 GERALDO CHOW METHYLPRE DNISOLONE PHYSICIAN PHYSICIAN ACETATE S S 80 MG NONEMERG A0120 [facility] [place] TRNSPRT: [facility] NEN AREA/OTH SYS DAY CARE S5100 ACTIVE ACTIVE SERVICES 6 DAY OF DAY OF ADULT; [facility] PER 15 N N MINUTES PRTBLE E0431 JANAE JANAE GASEOUS 6 HOME HOME O2 SYS MEDICAL MEDICAL RENT; EQUIPME EQUIPME FLWMTR HUMIDFR&M ASK O2 CONC 1 E1390 JANAE JANAE DEL [place] 6 HOME HOME 85%/>02 MEDICAL MEDICAL CONC AT EQUIPME EQUIPME PRSC FLW RATE DAY CARE S5100 ACTIVE ACTIVE SERVICES 6 DAY OF DAY OF ADULT; [facility] PER 15 N N MINUTES NONEMERG A0120 [facility] TRACY CO TRNSPRT: 6 [facility] 9 TRANSIT MTN AREA/OTH SYS INJECTION J0[address] ST ST 6 GERALDO CHOW CEFTRIAXO NE SODIUM PHYSICIAN PHYSICIAN PER 250 S S MG THERAPE[place] [address] [facility] IC 6 GERALDO SUSIE PROPHYLAC TIC/DX PHYSICIAN INJECTION S SUBQ/IM ADMINISTR G0008 ST ST ATION OF 6 GERALDO CHOW INFLUENZA VIRUS PHYSICIAN PHYSICIAN VACCINE S S IIV 68313 [facility] VACCINE 6 GERALDO CHOW PRESERV FREE PHYSICIAN PHYSICIAN INCREASED S S AG CONTENT IM COMPREHEN 93477 [facility] SIVE 6 GERALDO CHOW METABOLIC MED CTR MED CTR PANEL STAFF DEVELOPMENT EDUCATOR ST STAFF DEVELOPMENT EDUCATOR ST DAY CARE S5100 ACTIVE ACTIVE SERVICES 6 DAY OF DAY OF ADULT; [facility] PER 15 N N MINUTES NONEMERG A0120 [facility] CAC TRAC[facility] [place] TRNSPRT: 6 [facility] 9 TRANSIT NEN AREA/OTH SYS NONEMERG A0120 [facility] TRAC[facility] TRNSPRT: 6 [facility] TRANSIT NEN AREA/OTH SYS DAY CARE S5100 ACTIVE ACTIVE SERVICES 6 DAY OF DAY OF ADULT; [facility] PER 15 N N MINUTES DAY CARE S5100 ACTIVE ACTIVE SERVICES 6 DAY OF DAY OF ADULT; [facility] PER 15 N N MINUTES NONEMERG A0120 [facility] [place] TRNSPRT: 6 [facility] 9 TRANSIT NEN AREA/OTH SYS NONEMERG A0120 [facility] [place] TRNSPRT: 6 [facility] 9 TRANSIT NEN AREA/OTH SYS DAY CARE S5100 ACTIVE ACTIVE SERVICES 6 DAY OF DAY OF ADULT; [facility] PER 15 N N MINUTES THERAPEUT [address] [facility] 6 GERALDO SUSIE PROPHYLAC TIC/DX PHYSICIAN INJECTION S SUBQ/IM INJECTION J0696 [facility] 6 GERALDO CHOW CEFTRIAXO NE SODIUM PHYSICIAN PHYSICIAN PER 250 S S MG INJECTION J1040 [facility] 6 GERALDO COHW METHYLPRE DNISOLONE PHYSICIAN PHYSICIAN ACETATE S S 80 MG NONEMERG A0120 [facility] CAC TRAC[facility] [place] TRNSPRT: 6 [facility] 9 TRANSIT MTN AREA/OTH SYS DAY [...] EQUIPME EQUIPME PRSC FLW RATE LOCM Q9967 [facility] [phone] Y Y MG/ML HOSPITAL HOSPITAL IODINE CONCENTRA TION PER ML HOSPITAL G0378 [facility] OBSERVATI 6 Y Y ON [facility] [place] [address] [place] TRACY SCALESS ANGIOGRAP 6 MEDICAL HY CHEST SERV W/CONTRAS FOUNDATIO T/NONCONT N RAST INJ J1720 [facility] 6 Y Y [facility] SODIUM SUCCINATE TO [address] [place] [address] [facility] TROPONIN 6 Y Y [facility] [address] [facility] TROPONIN 6 Y Y [facility] JOSE ALFREDO BLOOD 08572 [facility] COUNT 6 Y Y COMPLETE [facility] AUTOMATED INJ J1720 [facility] 6 Y Y [facility] SODIUM SUCCINATE TO 100 MG GROUND A0425 [facility] MILEAGE 6 N-ASHISH N-ASHISH PER CO EMS CO EMS STATUTE MILE PROTHROMB 91689 [facility] IN TIME [place] [address] [place] DANA SAUCEDA CERVICAL 6 MEDICAL VEE SPINE W/O SERV CONTRAST FOUNDATIO MATERIAL N ECG [address] [facility] ROUTINE 6 GERALDO SUSIE ECG W/LEAST PHYSICIAN 12 LDS S W/I&R ECG 79319 [facility] ROUTINE 6 Y Y ECG [facility]OSPITAL W/LEAST 12 LDS TRCG ONLY W/O I&R RADIOLOGI 14581 [facility] C EXAM 6 Y Y CHEST 2 [facility]OSPITAL VIEWS FRONTAL&[place] [address] [place] TRUE SUSIE HEAD/BRAI 6 MEDICAL N W/O SERV CONTRAST FOUNDATIO MATERIAL N ECG 19756 [place] IBETH CHI ROUTINE 6 MEDICAL ECG SERV W/LEAST FOUNDATIO 12 LDS N I&R ONLY BASIC 26370 [facility] 6 Y Y [facility] CALCIUM TOTAL THROMBOPL 42687 [facility] ASTIN 6 Y Y [facility] PARTIAL PLASMA/WH OLE BLOOD AMB A0427 [facility] SERVICE 6 N-ASHISH N-ASHISH ALS CO EMS CO EMS EMERGENCY TRANSPORT LEVEL 1 INJECTION J1200 [place] [address] Y [facility] RAMINE HCL UP TO 50 MG DAY CARE S5100 ACTIVE ACTIVE SERVICES 6 DAY OF DAY OF ADULT; [facility] PER 15 N N MINUTES NONEMERG A0120 [facility] SHAYLEE ARRIETA TRNSPRT: 6 [facility]ION 9 TRANSIT NEN AREA/OTH SYS URNLS DIP 62356 [facility] 6 GERALDO KIRILL STICK/TAB LET RGNT PHYSICIAN NON-AUTO S W/O MICRSCP PRTBLE E0431 JANAE CARDOSO GASEOUS 6 HOME HOME O2 SYS MEDICAL MEDICAL RENT; EQUIPME EQUIPME FLWNER HUMIDFR&M ASK O2 CONC 1 E1390 JANAE CARDOSO [place] 6 HOME HOME 85%/>02 MEDICAL MEDICAL CONC AT EQUIPME EQUIPME PRSC FLW RATE DAY CARE S5100 ACTIVE ACTIVE SERVICES 6 DAY OF DAY OF ADULT; [facility] PER 15 N N MINUTES NONEMERG A0120 [facility] SHAYLEE ARRIETA TRNSPRT: 6 [facility] 9 TRANSIT MTN AREA/OTH SYS NONEMERG A0120 [facility] [place] TRNSPRT: 6 [facility] 9 TRANSIT [facility] AREA/OTH SYS DAY CARE S5100 ACTIVE ACTIVE SERVICES 6 DAY OF DAY OF ADULT; [facility] PER 15 N N MINUTES DAY CARE S5100 ACTIVE ACTIVE SERVICES 6 DAY OF DAY OF ADULT; [facility] PER 15 N N MINUTES NONEMERG A0120 [facility] CAC TRAC[facility] TRNSPRT: 6 [facility] 9 TRANSIT MTN AREA/OTH SYS NONEMERG A0120 [facility] [place] TRNSPRT: 6 [facility] 9 TRANSIT MTN AREA/OTH SYS DAY CARE S5100 ACTIVE ACTIVE SERVICES 6 DAY OF DAY OF ADULT; [facility] PER 15 N N MINUTES DAY CARE S5100 ACTIVE ACTIVE SERVICES 6 DAY OF DAY OF ADULT; [facility] PER 15 N N MINUTES NONEMERG A0120 [facility] [place] TRNSPRT: 6 [facility] 9 TRANSIT MTN AREA/OTH SYS PRTBLE E0431 JANAE JANAE GASEOUS 6 HOME HOME O2 SYS MEDICAL MEDICAL RENT; EQUIPME EQUIPME FLWMTR HUMIDFR&M ASK O2 CONC 1 E1390 JANAE CARDOSO [place] 6 HOME HOME 85%/>02 MEDICAL MEDICAL CONC AT EQUIPME EQUIPME PRSC FLW RATE NONEMERG A0120 [facility] [place] CO TRNSPRT: 6 [facility] 9 TRANSIT MTN AREA/OTH SYS NONEMERG A0120 [facility] [place] TRNSPRT: 6 [facility] 9 TRANSIT MTN AREA/OTH SYS DAY CARE S5100 ACTIVE ACTIVE SERVICES 6 DAY OF DAY OF ADULT; [facility] PER 15 N N MINUTES DAY CARE S5100 ACTIVE ACTIVE SERVICES 6 DAY OF DAY OF ADULT; [facility] PER 15 N N MINUTES NONEMERG A0120 [facility] [place] CO TRNSPRT: 6 [facility] 9 TRANSIT MTN AREA/OTH SYS PRTBLE E0431 JANAE JANAE GASEOUS 6 HOME HOME O2 SYS MEDICAL MEDICAL RENT; EQUIPME EQUIPME FLWMTR HUMIDFR&M ASK O2 CONC 1 E1390 JANAE JANAE DEL [place] 6 HOME HOME 85%/>02 MEDICAL MEDICAL CONC AT EQUIPME EQUIPME PRSC FLW RATE DAY CARE S5100 ACTIVE ACTIVE SERVICES 6 DAY OF DAY OF ADULT; [facility] PER 15 N N MINUTES NONEMERG A0120 [facility] CAC TRAC[facility] CO TRNSPRT: 6 [facility] REGION 9 TRANSIT [facility] AREA/OTH SYS NONEMERG A0120 [facility] CAC TRAC[facility] CO TRNSPRT: 6 [facility] REGION 9 TRANSIT [facility] AREA/OTH SYS DAY CARE S5100 ACTIVE ACTIVE SERVICES 6 DAY OF DAY OF ADULT; [facility] PER 15 N N MINUTES DAY CARE S5100 ACTIVE ACTIVE SERVICES 6 DAY OF DAY OF ADULT; [facility] PER 15 N N MINUTES NONEMERG A0120 [facility] CAC TRAC[facility] TRNSPRT: 6 [facility] REGION 9 TRANSIT [facility] AREA/OTH SYS INJECTION J0696 ST [address] 6 GERALDO GERALDO CEFTRIAXO NE SODIUM PHYSICIAN PHYSICIAN PER 250 S S MG THERAPEUT 40606 [facility] 6 GERALDO KIRILL PROPHYLAC TIC/DX PHYSICIAN INJECTION S SUBQ/IM URNLS DIP 28323 [facility] 6 GERALDO GERALDO STICK/TAB LET RGNT PHYSICIAN PHYSICIAN NON-AUTO S S W/O MICRSCP DAY CARE S5100 ACTIVE ACTIVE SERVICES 6 DAY OF DAY OF ADULT; [facility] PER 15 N N MINUTES NONEMERG A0120 [facility] CAC RTACY CO TRNSPRT: 6 [facility] REGION 9 TRANSIT [facility] AREA/OTH SYS PRTBLE E0431 JANAE CARDOSO GASEOUS 6 HOME HOME O2 SYS MEDICAL MED[facility] RENT; [facility] ASK O2 CONC 1 E1390 JANAE CARDOSO DEL PORT 6 HOME HOME 85%/>02 MEDICAL MEDICAL CONC AT EQUIPAK EQUIPAK PRSC FLW RATE DAY CARE S5100 ACTIVE ACTIVE SERVICES 6 DAY OF DAY OF ADULT; [facility] PER 15 N N MINUTES NONEMERG A0120 [facility] CAC [facility] TRNSPRT: 6 [facility] REGION 9 TRANSIT [facility] AREA/OTH SYS NONEMERG A0120 [facility] [place] TRNSPRT: 6 [facility] 9 TRANSIT MTN AREA/OTH SYS DAY CARE S5100 ACTIVE ACTIVE SERVICES 6 DAY OF DAY OF ADULT; [facility] PER 15 N N MINUTES DAY CARE S5100 ACTIVE ACTIVE SERVICES 6 DAY OF DAY OF ADULT; [facility] PER 15 N N MINUTES NONEMERG A0120 [facility] CAC TRAC[facility] TRNSPRT: 6 [facility] 9 TRANSIT MTN AREA/OTH SYS NONEMERG A0120 [facility] [place] TRNSPRT: 6 [facility] 9 TRANSIT MTN AREA/OTH SYS DAY CARE S5100 ACTIVE ACTIVE SERVICES 6 DAY OF DAY OF ADULT; [facility] PER 15 N N MINUTES DAY CARE S5100 ACTIVE ACTIVE SERVICES 6 DAY OF DAY OF ADULT; [facility] PER 15 N N MINUTES NONEMERG A0120 [facility] [place] TRNSPRT: 6 [facility] 9 TRANSIT MTN AREA/OTH SYS NONEMERG A0120 [facility] [place] TRNSPRT: 6 [facility] 9 TRANSIT NEN AREA/OTH SYS DAY CARE S5100 ACTIVE ACTIVE SERVICES 6 DAY OF DAY OF ADULT; [facility] PER 15 N N MINUTES DAY CARE S5100 ACTIVE ACTIVE SERVICES 6 DAY OF DAY OF ADULT; [facility] PER 15 N N MINUTES NONEMERG A0120 [facility] [place] TRNSPRT: 6 [facility] 9 TRANSIT MTN AREA/OTH SYS INJECTION J0696 [facility] 6 GERALDO RICHARDS CEFTRIAXO NE SODIUM PHYSICIAN PER 250 S MG INJECTION J1040 [facility] 6 GERALDO RICHARDS METHYLPRE DNISOLONE PHYSICIAN ACETATE S [address] [facility] IC 6 GERALDO RICHARDS PROPHYLAC TIC/DX PHYSICIAN INJECTION S SUBQ/IM CULTURE 5[address] [facility]ERIAL 6 [facility] CTR QUANTTATI STAFF DEVELOPMENT EDUCATOR ST STAFF DEVELOPMENT EDUCATOR ST VE COLONY COUNT URINE O2 CONC 1 E1390 JANAE PÉREZRELL DEL PORT 6 HOME HOME 85%/>02 MEDICAL MEDICAL CONC AT EQUIPME EQUIPME PRSC FLW RATE NONEMERG A0120 [facility] CAC [facility] [place] TRNSPRT: 6 [facility] 9 TRANSIT MTN AREA/OTH SYS DAY CARE S5100 ACTIVE ACTIVE SERVICES 6 DAY OF DAY OF ADULT; [facility] PER 15 N N MINUTES PRTBLE E0431 JANAE JANAE GASEOUS 6 HOME HOME O2 SYS MEDICAL MEDICAL RENT; EQUIPME EQUIPME FLWMTR HUMIDFR&M ASK DAY CARE S5100 ACTIVE ACTIVE SERVICES 6 DAY OF DAY OF ADULT; [facility] PER 15 N N MINUTES NONEMERG A0120 [facility] TRNSPRT: 6 [facility]ION 9 TRANSIT NEN AREA/OTH SYS AMB A0426 [facility] QATAR[facility] SERVICE 6 MEDICAL MEDICAL ALS RESPONSE RESPONSE NONEMERGE NCY TRANSPORT LEVEL 1 GROUND A0425 QATARI QATARI MILEAGE 6 MEDICAL MEDICAL PER RESPONSE RESPONSE STATUTE MILE RADIOLOGI 38896 [place] JAN C 6 MEDICAL BAR EXAMINATI SERV ON CHEST FOUNDATIO SINGLE N VIEW FRONTAL ECG 12227 [facility] IBETH PALENCIA ROUTINE 6 MEDICAL ECG SERV W/LEAST FOUNDATIO 12 LDS N I&R ONLY AMB A0422 QATARI QATARI OXYGEN&O2 6 MEDICAL MEDICAL SUPPLIES RESPONSE RESPONSE LIFE SUSTAININ G SITUATION O2 CONC 1 E1390 JANAE CARDOSO [place] 6 HOME HOME 85%/>02 MEDICAL MEDICAL CONC AT EQUIPME EQUIPME PRSC FLW RATE PRTBLE E0431 JANAE JANAE GASEOUS 6 HOME HOME O2 SYS MEDICAL MEDICAL RENT; EQUIPME EQUIPME FLWMTR HUMIDFR&M ASK RADEX 38960 RADIOLOG[facility] HURST TERENCE SHOULDER 6 COMPLETE ASSOCIATE MINIMUM 2 S OF NOTH VIEWS INJECTION J1040 [facility] 6 GERALDO JEN METHYLPRE DNISOLONE PHYSICIAN ACETATE S [address] [facility] IC 6 GERALDO SUSIE PROPHYLAC TIC/DX PHYSICIAN INJECTION S SUBQ/IM OBSERVATI 01359 [facility] ON/INPATI 6 MEDICAL SUSI ENT SERV HOSPITAL FOUNDATIO CARE 50 N MINUTES ECG 83979 [facility] SUTTON MADYSON ROUTINE 6 MEDICAL ECG SERV W/LEAST FOUNDATIO 12 LDS N I&R ONLY ECG [address] [facility] ROUTINE 6 GERALDO ECG W/LEAST PHYSICIAN 12 LDS S EKG I&R ONLY NATRIURET [address] IC 6 GERALDO GERALDO PEPTIDE EMELINA EMELINA HEPATIC [address] FUNCTION 6 GERALDO GERALDO PANEL EMELINA TARANGO RADIOLOGI [address] C 6 GERALDO GERALDO EXAMINATI EMELINA TARANGO ON CHEST SINGLE VIEW FRONTAL ECG [address] ROUTINE 6 GERALDO GERALDO ECG EMELINA TARANGO W/LEAST 12 LDS TRCG ONLY W/O I&[place] [address] LIPASE 6 GERALDO GERALDO TARANGO SPECIALTY A0434 [facility] 6 AMBULANCE AMBULANCE TRANSPORT SERV STAFF DEVELOPMENT EDUCATOR SERV STAFF DEVELOPMENT EDUCATOR R R THERAPEUT [address] IC 6 GERALDO GERALDO INJECTION EMELINA TARANGO [place] [address] TROPONIN 6 GERALDOAKBAR CASSIDYTH QUANTITAT EMELINA TARANGO JOSE ALFREDO COLLECTIO [address] N VENOUS 6 GERALDOAKBAR CHOW BLOOD EMELINA TARANGO VENIPUNCT URE BLOOD [address] COUNT 6 GERALDO GERALDO COMPLETE EMELINA TARANGO AUTO&AUTO DIFRNTL WBC THER [address] PROPH/DX 6 GERALDOKUMAR CHOW NJX IV EMELINA TARANGO PUSH SINGLE/1S T SBST/DRUG PROTHROMB [address] IN TIME 6 GERALDO GERALDO TARANGO GROUND A0425 [facility] MILEAGE [address] [place] [address] PER LIFE LIFE STATUTE SQUAD SQUAD MILE INJECTION J2405 [facility] ST. 6 GERALDO GERALDO ONDANSETR EMELINA TARANGO ON HCL PER 1 MG 5% J7060 [facility] ST. DEXTROSE/ 6 GERALDO GERALDO WATER EMELINA HOWEENCE BASIC [address] METABOLIC 6 GERALDO GERALDO PANEL EMELINA TARANGO CALCIUM TOTAL THROMBOPL [address] ASTIN 6 GERALDOMIRANDA SERNABETH TIME EMELINA TARANGO PARTIAL PLASMA/WH OLE BLOOD CRITICAL [address] [facility] CARE 6 GERALDOMIRANDA CRENSHAWZABETH ILL/INJUR EMELINA TARANGO ED PATIENT INIT 30-74 MIN AMB A0427 [facility] SERVICE [address] [place] [address] ALS LIFE LIFE EMERGENCY SQUAD SQUAD TRANSPORT LEVEL [address] [facility] 6 GERALDOMIRANDA RICHARDS CEFTRIAXO NE SODIUM PHYSICIAN PER 250 S MG THERAPE[place] [address] [facility] IC 6 GERALDO SUSIE PROPHYLAC TIC/DX PHYSICIAN INJECTION S SUBQ/IM BLOOD [address] COUNT 6 GERALOD GERALDO COMPLETE MED CTR MED CTR AUTO&AUTO STAFF DEVELOPMENT EDUCATOR ST STAFF DEVELOPMENT EDUCATOR [place] [address] FREE 6 GERALDO GERALDO THYROXINE MED CTR MED CTR STAFF DEVELOPMENT EDUCATOR ST STA[place] [address] THYROID 6 GERALDO GERALDO STIMULATI MED CTR MED CTR NG STAFF DEVELOPMENT EDUCATOR ST STAFF DEVELOPMENT EDUCATOR ST HORMONE TSH RADIOLOGI [address] C EXAM 6 GERALDO GERALDO CHEST 2 ADDIE ADDIE VIEWS FRONTAL&L ATERAL LIPID [address] ST [address] PANEL 6 GERALDO GERALDO MED CTR MED CTR STAFF DEVELOPMENT EDUCATOR ST STAFF DEVELOPMENT EDUCATOR ST COMPREHEN [address] SIVE 6 GERALDO GERALDO METABOLIC MED CTR MED CTR PANEL STAFF DEVELOPMENT EDUCATOR ST STAFF DEVELOPMENT EDUCATOR ST RADEX 58750 RADIOLOGY KLEIMEYER SPINE 6 ERIK LUMBOSACR ASSOCIATE AL 2/3 S OF NOTH VIEWS RADEX [address] SPINE 6 GERADLO GERALDO LUMBOSACR ADDIE ADDIE AL MINIMUM 4 VIEWS PRTBLE E0431 JANAE CARDOSO GASEOUS 6 HOME HOME O2 SYS MEDICAL MEDICAL RENT; EQUIPME EQUIPME FLWNER HUMIDFR&M ASK O2 CONC 1 E1390 JANAE CARDOSO [place] 6 HOME HOME 85%/>02 MEDICAL MEDICAL CONC AT EQUIPME EQUIPME PRSC FLW RATE AMB A0427 [facility] [address] [place] [address] ALS LIFE LIFE EMERGENCY SQUAD SQUAD TRANSPORT LEVEL [address] HEEB CHR ROUTINE 6 GERALDO ECG W/LEAST PHYSICIAN 12 LDS S EKG I&R ONLY COMPREHEN [address] SIVE 6 GERALDO GERALDO METABOLIC EMELINA EMELINA PANEL RADIOLOGI [address] C EXAM 6 GERALDO GERALDO CHEST 2 EMELINA EMELINA VIEWS FRONTAL&L ATERAL ECG [address] ROUTINE 6 GERALDO GERALDO ECG EMELINA EMELINA W/LEAST 12 LDS TRCG ONLY W/O I&R BLOOD [address] COUNT 6 GERALDO GERALDO COMPLETE EMELINA EMELINA AUTO&AUTO DIFRNTL WBC COLLECTIO [address] N VENOUS 6 GERALDO GERALDO BLOOD EMELINA [place] [address] TROPONIN 6 GERALDO GERALDO QUANTITAT EMELINA EMELINA JOSE ALFREDO GROUND A0425 [facility] MILEA[address] PER LIFE LIFE STATUTE SQUAD SQUAD MILE RADEX [address] RIBS UNI 6 GERALDO GERALDO [...] SERVICES 6 DAY OF DAY OF ADULT; [facility] PER 15 N N MINUTES NONEMERG A0120 [facility] CO TRNSPRT: 6 INC [facility] REGION 9 TRANSIT MTN AREA/OTH SY HOSP[facility] G0378 [facility] OBSERVATI 6 Y Y ON HOSPITAL HOSPITAL SERVICE PER HOUR ECG 58910 [facility] ROUTINE 6 Y Y ECG [facility] W/LEAST 12 LDS TRCG ONLY W/O I&R ECG [id number] MARLON FOFANA JACQUELINE ROUTINE 6 MEDICAL ECG SERV W/LEAST FOUNDATIO 12 LDS N I&R ONLY INJECTION [id number] [facility] HEPARIN 6 Y Y [facility] PER 1000 UNITS OBSERVATI [id number] MARLON ELMORE ON CARE 6 MEDICAL SUSI DISCHARGE SERV FOUNDATIO MANAGEMEN N T THROMBOPL [id number] [facility] ASTIN 6 Y Y TIME [facility] PARTIAL PLASMA/WH OLE BLOOD INJECTION J1644 [facility] HEPARIN 6 Y Y [facility] PER 1000 UNITS AMB A0427 [facility] SERVICE 6 Fausto-ASHISH AMADOR ALS CO EMS CO EMS EMERGENCY TRANSPORT LEVEL 1 ECG [id number] MARLON CRISTINA CHI ROUTINE 6 MEDICAL ECG SERV W/LEAST FOUNDATIO 12 LDS N I&R ONLY ECG [id number] [facility] ROUTINE 6 Y Y ECG HOSPITAL HOSPITAL W/LEAST 12 LDS TRCG ONLY W/O I&R RADIOLOGI 49548 MARLON MALHOTRA C EXAM 6 MEDICAL ALAYNA CHEST 2 SERV VIEWS FOUNDATIO FRONTAL&L N ATERAL COMPREHEN 14073 [facility] [place] 6 Y Y [facility] [place] [id number] [facility] 6 Y Y HOSPITAL HOSPITAL DAY CARE S5100 ACTIVE ACTIVE SERVICES 6 DAY OF DAY OF ADULT; [facility] PER 15 N N MINUTES NONEMERG A0120 LKLP CAC TRACY CO TRNSPRT: 6 INC PUBLIC MINI-BUS REGION 9 TRANSIT MTN AREA/OTH SYS GROUND A0425 [facility] MILEAGE 6 N-ASHISH N-ASHISH PER CO EMS CO EMS STATUTE MILE PROTHROMB 39214 [facility] IN TIME 6 Y Y [facility] [place] [place] [address] [facility] TROPONIN 6 Y Y [facility] JOSE ALFREDO BLOOD [id number] [facility] COUNT 6 Y Y [facility] AUTO&AUTO DIFRNTL WBC INITIAL 11164 MARLON ELMORE OBSERVATI 6 MEDICAL SUSI ON SERV CARE/DAY FOUNDATIO 30 N MINUTES INJECTION [id number] [facility] 6 Y Y [facility] ON HCL PER [address] [facility] [phone] 6 Y Y MG/ML [facility] [place] [address] [facility] ANGIOGRAP 6 Y Y HY [facility] W/CONTRAS T/NONCONT RAST METHYLPRE J7509 [facility] DNISOLONE 6 Y Y ORAL PER [facility] [address] [facility] [facility] HEPARIN 6 Y Y SODIUM [facility] PER [address] [facility] METABOLIC 6 Y Y PANEL [facility] CALCIUM TOTAL BASIC 24296 [facility] METABOLIC 6 Y Y PANEL [facility] CALCIUM TOTAL [facility]JECTION J1644 [facility] HEPARIN 6 Y Y SODIUM [facility] PER [address] [facility] [facility] 6 Y Y MAGNESIUM [facility] SULPHATE PER [address] [facility] DNISOLONE 6 Y Y ORAL PER [facility] [address] [facility] C 6 Y Y EXAMINATI [facility] ON CHEST SINGLE VIEW FRONTAL ECG [address] [facility] ROUTINE 6 Y Y ECG [facility] W/LEAST 12 LDS TRCG ONLY W/[place] [address] [facility] MAGNESIUM 6 Y Y HOSPITAL [id number] [facility] OBSERVATI 6 Y Y ON HOSPITAL HOSPITAL SERVICE PER HOUR ECG 55212 MARLON CRISTINA CHI ROUTINE 6 MEDICAL ECG SERV W/LEAST FOUNDATIO 12 LDS N I&R ONLY PRESSURIZ 80994 [facility] ED/NONPRE 6 Y Y [facility] [address] [facility] TROPONIN 6 Y Y [facility] JOSE ALFREDO BLOOD 39021 [facility] COUNT 6 Y Y [facility] [address] [facility] PHOSPHORU Y Y [facility] INORGANIC INJECTION J2405 [facility] 6 Y Y [facility] ON HCL PER [address] 6 GERALDOMIRANDA CHOW ONDANSETR ADDIE ADDIE ON HCL PER [address] MORPHINE 6 GERALDO GERALDO SULFATE ADDIE ADDIE UP TO 10 MG GROUND A0425 [facility] MILEAGE 6 [facility] OF [facility] MILE PROTHROMB 28676 [facility] IN TIME 6 Y Y [facility] THER [address] PROPH/DX 6 GERALDO CHOW NJX IV ADDIE ADDIE PUSH SINGLE/1S T SBST/DRUG BLOOD 68990 [facility] COUNT 6 Y Y [facility] [address] [facility] TROPONIN 6 Y Y [facility] JOSE ALFREDO BLOOD [address] COUNT 6 GERALDO GERALDO COMPLETE ADDIE ADDIE AUTO&AUTO DIFRNTL WBC COLLECTIO [address] N VENOUS 6 GERALDO CASSIDYTH BLOOD ADDIE ADDIE VENIPUNCT URE AMB A0426 [place] SERVICE 6 [facility] [address] [facility] [address] [facility] NCY TRANSPORT LEVEL 1 ECG 20267 [place] IBETH CHI ROUTINE 6 MEDICAL ECG SERV W/LEAST FOUNDATIO 12 LDS [place] [address] [facility] 6 Y Y [facility] RADIOLOGI 87061 [facility] [address] [place] [address] EXAMINATI ADDIE ADDIE ON CHEST SINGLE VIEW FRONTAL ECG [address] ST[address] . ROUTINE 6 [facility] ECG ADDIE ADDIE W/LEAST 12 LDS TRCG ONLY W/O I&R CT THORAX 92478 RADIOLOGY LUBBERS W/O 6 SHIRAZ CONTRAST ASSOCIATE MATERIAL S [facility] COMPREHEN 35820 [facility] [place] 6 Y Y [facility] PANEL BASIC 47457 [facility] METABOLIC [address] [place] [address] PANEL ADDIE ADDIE CALCIUM TOTAL O2 CONC 1 E1390 JANAE CARDOSO DEL PORT 6 HOME HOME 85%/>02 MEDICAL MEDICAL CONC AT EQUIPME EQUIPME PRSC FLW RATE PRTBLE E0431 JANAE CARDOSO GASEOUS 6 HOME HOME O2 SYS MEDICAL MEDICAL RENT; EQUIPME EQUIPME FLWMTR HUMIDFR&M ASK DAY CARE S5100 ACTIVE ACTIVE SERVICES 6 DAY OF DAY OF ADULT; [facility] PER 15 N N MINUTES NONEMERG A0120 [facility] CAC TRACY CO TRNSPRT: 6 [facility] PUBLIC [place] 9 TRANSIT [facility] ARE[facility]/OTH SYS NONEMERG A0120 [facility] CAC TRACY CO TRNSPRT: 6 [facility] PUBLIC [place] REGION 9 TRANSIT NEN AREA/OTH SYS DAY CARE S5100 ACTIVE ACTIVE SERVICES 6 DAY OF DAY OF ADULT; [facility] PER 15 N N MINUTES DAY CARE S5100 ACTIVE ACTIVE SERVICES 6 DAY OF DAY OF ADULT; [facility] PER 15 N N MINUTES NONEMERG A0120 [facility] CAC TRACY CO TRNSPRT: 6 [facility] PUBLIC [place] 9 TRANSIT [facility] ARE[facility]/OTH SYS NONEMERG A0120 [facility] CAC TRACY CO TRNSPRT: 6 INC PUBLIC [place] REGION 9 TRANSIT MTN AREA/OT SYS DAY CARE S5100 ACTIVE ACTIVE SERVICES 6 DAY OF DAY OF ADULT; [facility] PER 15 N N MINUTES PRTBLE E0431 JANAE CARDOSO GASEOUS 5 HOME HOME O2 SYS MEDICAL MEDICAL RENT; EQUIPME EQUIPME FLWMTR HUMIDFR&M ASK O2 CONC 1 E1390 JANAE CARDOSO DEL PORT 5 HOME HOME 85%/>02 MEDICAL MEDICAL CONC AT EQUIPME EQUIPME PRSC FLW RATE DAY CARE S5100 ACTIVE ACTIVE SERVICES 5 DAY OF DAY OF ADULT; [facility] PER 15 N N MINUTES NONEMERG A0120 [facility] CAC TRACY CO TRNSPRT: 5 [facility] PUBLIC [facility] REGION 9 TRANSIT [facility] ARE[facility] SYS PHYSICAL 92323 ACTIVE ACTIVE THERAPY 5 DAY OF DAY OF EVALUATIO [facility] N N N NONEMERG A0120 [facility] CAC TRACY CO TRNSPRT: 5 [facility] REGION 9 TRANSIT [facility]/OT SYS DAY CARE S5100 ACTIVE ACTIVE SERVICES 5 DAY OF DAY OF ADULT; [facility] PER 15 N N MINUTES SBSQ [address] ANT CARE/DAY 35 PHYSICIAN MINUTES S SBSQ 25648 [facility] 5 CHOLERA KIRILL CARE/DAY DO INC 25 MINUTES SBSQ 61372 [facility] 5 [place] K[place] CARE/DAY DO INC 25 MINUTES SBSQ 63521 [place] [address] GERALDO ANT CARE/DAY 35 PHYSICIAN MINUTES S PULMONARY 88920 RADIOLOGY NEILS GLORIA 5 VENTILATI ASSOCIATE ON & S [facility] PERFUSION IMAGING RADIOLOGI 54793 RADIOLOGY LUBBERS C EXAM 5 SHIRAZ CHEST 2 ASSOCIATE VIEWS S [facility] FRONTAL&L ATERAL SBSQ 98981 [facility] 5 [place] KIRILL CARE/DAY DO INC 35 MINUTES [address] [facility] CARE/DAY MAR 50 PHYSICIAN MINUTES S INITIAL [address] [facility] 5 GERALDO ANT CARE/DAY 50 PHYSICIAN MINUTES S INITIAL 72141 [facility] 5 [place]OL[place] KIRILL CARE/DAY DO INC 70 MINUTES ECHO 19078 [facility] TTHRC R-T 5 GERALDO ARVIND 2D W/WOM-MOD PHYSICIAN E COMPL S SPEC&COLR D ECG [address] [facility] [place] ROUTINE 5 GERALDO ECG MED CTR W/LEAST 12 LDS I&R ONLY ECG [address] [facility] [place] ROUTINE 5 GERALDO ECG MED CTR W/LEAST 12 LDS I&R ONLY DAY CARE S5100 ACTIVE ACTIVE SERVICES 5 DAY OF DAY OF ADULT; [facility] PER 15 N N MINUTES RADIOLOGI 82910 [facility] C 5 N N EXAMINATI COMMUNTIY COMMUNTIY ON CHEST HOSPITA HOSPITA SINGLE VIEW FRONTAL ECG 75487 [facility] ROUTINE 5 N N ECG COMMUNTIY COMMUNTIY W/LEAST HOSPITA HOSPITA 12 LDS TRCG ONLY W/O I&R COMPREHEN 59762 [facility] SIVE 5 N N METABOLIC COMMUNTIY COMMUNTIY PANEL HOSPITA HOSPITA ECG 11971 [facility] ROUTINE 5 [place] CHANCE ECG EMERGENCY W/LEAST PHYS 12 LDS I&R ONLY NATRIURET 85663 [facility] IC 5 N N PEPTIDE COMMUNTIY COMMUNTIY HOSPITA HOSPITA BLOOD 74809 [facility] OCCULT 5 N N PEROXIDAS COMMUNTIY COMMUNTIY E ACTV HOSPITA HOSPITA QUAL FECES 1-3 SPEC BLOOD 76403 [facility] GASES ANY 5 N N COMMUNTIY COMMUNTIY COMBINATI HOSPITA HOSPITA ON PH PCO2 PO2 CO2 HCO3 THER 41215 [facility] PROPH/DX 5 N N NJX IV COMMUNTIY COMMUNTIY PUSH HOSPITA HOSPITA SINGLE/1S T SBST/DRUG GROUND A0425 [facility] 5 [place] [facility] PER LIFE [place] [address] [facility] TROPONIN 5 N N QUANTITAT COMMUNTIY COMMUNTIY JOSE ALFREDO HOSPITA HOSPITA ARTERIAL 90302 [facility] PUNCTURE 5 N N WITHDRAWA COMMUNTIY COMMUNTIY L BLOOD HOSPITA HOSPITA DX COLLECTIO 17061 [facility] N VENOUS 5 N N BLOOD COMMUNTIY COMMUNTIY VENIPUNCT HOSPITA HOSPITA URE BLOOD 24953 [facility] COUNT 5 N N COMPLETE COMMUNTIY COMMUNTIY AUTO&AUTO HOSPITA HOSPITA DIFRNTL WBC AMB A0427 TRACY TRACY SERVICE 5 [facility] ALS [facility] EMERGENCY SQUAD SQUAD TRANSPORT LEVEL 1 O2 CONC 1 E1390 JANAE CARDOSO DEL PORT 5 HOME HOME 85%/>02 MEDICAL MEDICAL CONC AT EQUIPME EQUIPME PRSC FLW RATE PRTBLE E0431 JANAE CARDOSO GASEOUS 5 HOME HOME O2 SYS MEDICAL MEDICAL RENT; EQUIPME EQUIPME FLWMTR HUMIDFR&M ASK DAY CARE S5100 ACTIVE ACTIVE SERVICES 5 DAY OF DAY OF ADULT; [facility] PER 15 N N MINUTES NONEMERG A0120 [facility] CAC TRACY CO TRNSPRT: 5 INC [place] 9 TRANSIT NEN AREA/OT SYS PHYSICAL 08408 ACTIVE ACTIVE THERAPY 5 DAY OF DAY OF EVALUATIO [facility] N N N BLOOD [address] COUNT 5 GERALDO GERALDO COMPLETE MED CTR MED CTR AUTOMATED STAFF DEVELOPMENT EDUCATOR ST STAFF DEVELOPMENT EDUCATOR ST SUSCEPTIB [address] LTY STDY 5 GERALDO GERALDO ANTIMICRB MED CTR MED CTR IAL STAFF DEVELOPMENT EDUCATOR ST STAFF DEVELOPMENT EDUCATOR ST MICRO/AGA R DILUTJ COMPREHEN [address] SIVE 5 GERALDO GERALDO METABOLIC MED CTR MED CTR PANEL STAFF DEVELOPMENT EDUCATOR ST STAFF DEVELOPMENT EDUCATOR ST CULTURE [address] BACTERIAL 5 GERALDO GERALDO MED CTR MED CTR QUANTTATI STAFF DEVELOPMENT EDUCATOR ST STAFF DEVELOPMENT EDUCATOR ST VE COLONY COUNT URINE CUL BACT [address] AEROBIC 5 GERALDO GERALDO ADDL MED CTR MED CTR METHS STAFF DEVELOPMENT EDUCATOR ST STAFF DEVELOPMENT EDUCATOR ST DEFINITIV E EA ISOL DAY CARE S5100 ACTIVE ACTIVE SERVICES 5 DAY OF DAY OF ADULT; [facility] PER 15 N N MINUTES NONEMERG A0120 [facility] CAC SENIOR TRNSPRT: 5 INC SERVICES [place] REGION 9 [facility]/OT SYS NONEMERG A0120 [facility] CAC SENIOR TRNSPRT: 5 INC SERVICES [place] 9 [facility]/OT SYS DAY CARE S5100 ACTIVE ACTIVE SERVICES 5 DAY OF DAY OF ADULT; [facility] PER 15 N N MINUTES NONEMERG A0120 [facility] CAC SENIOR TRNSPRT: 5 INC SERVICES [facility] REGION [address] [place] [address]/OT SYS ALBUTEROL J7613 ADDIE ADDIE INHAL [address] [place] [address] NON-CP DRUGS, DRUGS, PROD THRU INC. INC. DME U DOSE 1 MG IPRATROPI J7644 ADDIE ADDIE UM [address] [place] [address] BROMIDE DRUGS, DRUGS, INHAL INC. INC. NON-CP U DOSE PER MG PHRM Q0513 ADDIE ADDIE DISPENSIN [address] [place] [address] G FEE DRUGS, DRUGS, INHALATIO INC. INC. N RX; PER 30 DAYS NONEMERG A0120 [facility] SENIOR TRNSPRT: [address]/OT SYS DAY CARE S5100 ACTIVE ACTIVE SERVICES 5 DAY OF DAY OF ADULT; [facility] PER 15 N N MINUTES PRTBLE E0431 JANAE CARDOSO GASEOUS 5 HOME HOME O2 SYS MEDICAL MEDICAL RENT; EQUIPME EQUIPME FLWMTR HUMIDFR&M ASK O2 CONC 1 E1390 JANAE CARDOSO DEL PORT 5 HOME HOME 85%/>02 MEDICAL MEDICAL CONC AT EQUIPME EQUIPME PRSC FLW RATE NONEMERG A0120 [facility] CAC SENIOR TRNSPRT: 5 INC SERVICES [place] 9 [facility]/OT SYS NONEMERG A0120 [facility] CAC SENIOR TRNSPRT: 5 INC SERVICES [place] 9 OF [facility]/OT SYS DAY CARE S5100 ACTIVE ACTIVE SERVICES 5 DAY OF DAY OF ADULT; [facility] PER 15 N N MINUTES DAY CARE S5100 ACTIVE ACTIVE SERVICES 5 DAY OF DAY OF ADULT; [facility] PER 15 N N MINUTES NONEMERG A0120 [facility] CAC SENIOR TRNSPRT: 5 INC SERVICES [place] 9 OF [facility]/OTH SYS NONEMERG A0120 [facility] CAC SENIOR TRNSPRT: 5 INC SERVICES [place] 9 OF [facility] SYS PHYSICAL 85657 ACTIVE ACTIVE THERAPY 5 DAY OF DAY OF EVALUATIO [facility] N N N DAY CARE S5100 ACTIVE ACTIVE SERVICES 5 DAY OF DAY OF ADULT; [facility] PER 15 N N MINUTES NONEMERG A0120 [facility] CAC SENIOR TRNSPRT: 5 INC SERVICES [place] 9 OF [facility]/OT SYS NONEMERG A0120 [facility] CAC SENIOR TRNSPRT: 5 INC SERVICES [place] 9 OF [facility]/OT SYS DAY CARE S5100 ACTIVE ACTIVE SERVICES 5 DAY OF DAY OF ADULT; [facility] PER 15 N N MINUTES DAY CARE S5100 ACTIVE ACTIVE SERVICES 5 DAY OF DAY OF ADULT; [facility] PER 15 N N MINUTES NONEMERG A0120 [facility] CAC SENIOR TRNSPRT: 5 INC SERVICES [place] 9 OF [facility]/OTH SYS NONEMERG A0120 [facility] CAC SENIOR TRNSPRT: 5 INC SERVICES [place] 9 OF [facility]/OT SYS DAY CARE S5100 ACTIVE ACTIVE SERVICES 5 DAY OF DAY OF ADULT; [facility] PER 15 N N MINUTES DAY CARE S5100 ACTIVE ACTIVE SERVICES 5 DAY OF DAY OF ADULT; [facility] PER 15 N N MINUTES NONEMERG A0120 [facility] CAC SENIOR TRNSPRT: 5 INC SERVICES [place] 9 [facility]/OTH SYS NONEMERG A0120 [facility] CAC SENIOR TRNSPRT: 5 INC SERVICES [place] 9 [facility]/OTH SYS DAY CARE S5100 ACTIVE ACTIVE SERVICES 5 DAY OF DAY OF ADULT; [facility] PER 15 N N MINUTES NONEMERG A0120 [facility] CAC SENIOR TRNSPRT: 5 INC SERVICES [place] 9 [facility]/OTH SYS NONEMERG A0120 [facility] CAC SENIOR TRNSPRT: 5 INC SERVICES [place] 9 [facility]/OT SYS DAY CARE S5100 ACTIVE ACTIVE SERVICES 5 DAY OF DAY OF ADULT; [facility] PER 15 N N MINUTES DAY CARE S5100 ACTIVE ACTIVE SERVICES 5 DAY OF DAY OF ADULT; [facility] PER 15 N N MINUTES PRTBLE E0431 JANAE CARDOSO GASEOUS 5 HOME HOME O2 SYS MEDICAL MEDICAL RENT; EQUIPME EQUIPME FLWMTR HUMIDFR&M ASK NONEMERG A0120 [facility] CAC SENIOR TRNSPRT: 5 INC SERVICES [facility] REGION 9 [facility]/OT SYS O2 CONC 1 E1390 JANAE CARDOSO DEL PORT 5 HOME HOME 85%/>02 MEDICAL MEDICAL CONC AT EQUIPME EQUIPME PRSC FLW RATE NONEMERG A0120 [facility] CAC SENIOR TRNSPRT: 5 INC SERVICES [place] REGION 9 [facility]/OTH SYS DAY CARE S5100 ACTIVE ACTIVE SERVICES 5 DAY OF DAY OF ADULT; [facility] PER 15 N N MINUTES ECG 43817 [facility] COUGHLIN ROUTINE 5 MEDICAL ECG SERV W/LEAST FOUNDATIO 12 LDS N I&R ONLY ALBUTEROL J7613 ADDIE ADDIE INHAL 5 [facility] NON-CP DRUGS, DRUGS, PROD THRU INC. INC. DME U DOSE 1 MG IPRATROPI J7644 ADDIE ADDIE UM 5 [facility] BROMIDE DRUGS, DRUGS, INHAL INC. INC. NON-CP U DOSE PER MG PHRM Q0513 ADDIE ADDIE DISPENSIN [address] [place] [address] G FEE DRUGS, DRUGS, INHALATIO INC. INC. N RX; PER 30 DAYS OBSERVATI 38967 [facility] SANTIAGO ON CARE 5 MEDICAL DISCHARGE SERV FOUNDATIO MANAGEMEN N T AMB A0431 AIR AIR SERVICE 5 METHODS METHODS CONVNTION [facility] AIR SRVC TRANSPORT [address] [place] [address] NEW NEW TROPONIN 5 [facility] QUANTITAT MED CTR MED CTR JOSE ALFREDO COLLECTIO 09880 NEW NEW N VENOUS 5 [facility] BLOOD [place] [address] NEW NEW ABDOMEN 5 [facility] W/O MED CTR MED CTR CONTRAST MATERIAL PRESSURIZ 96877 NEW NEW ED/NONPRE 5 [facility] SSURIZED MED CTR MED CTR INHALATIO N TREATMENT CUL BACT 50317 NEW NEW KRYSTYNA 5 [facility] AEROBIC MED CTR MED CTR ISOL XCPT UR BLOOD/STO OL INITIAL 10942 [facility] SANTIAGO OBSERVATI 5 MEDICAL ON SERV CARE/DAY FOUNDATIO 70 N MINUTES ROTARY A0436 AIR AIR WING AIR 5 METHODS METHODS MILEAGE [facility] PER STATUTE MILE DEMO&/JOO 47002 NEW NEW L OF PT 5 [facility] UTILIZ MED CTR MED CTR AERSL GEN/NEB/I NHLR/IP ECG 46413 [facility] BLISS ROUTINE 5 MEDICAL NAN ECG SERV W/LEAST FOUNDATIO 12 LDS N I&R ONLY ECHO 74917 [facility] ENCINAS AYALA TRANSTHOR 5 MEDICAL C R-T 2D SERV W/WO FOUNDATIO M-MODE N REC F-UP/LMTD RADIOLOGI 38979 NEW NEW C 5 HORIZONS HORIZONS EXAMINATI MED CTR MED CTR ON CHEST SINGLE VIEW FRONTAL CT THORAX 05590 F&S BARBA, W/O 5 RADIOLOGY JR QUENTIN CONTRAST PC MATERIAL RADIOLOGI 67773 [facility] C EXAM 5 MEDICAL KIRILL CHEST 2 SERV VIEWS FOUNDATIO FRONTAL&L N ATERAL ECG 37153 NEW NEW ROUTINE 5 HORIZONS HORIZONS ECG MED CTR MED CTR W/LEAST 12 LDS TRCG ONLY W/O I&R RADIOLOGI 60726 NEW NEW C EXAM 5 [facility]ORIZONS HORIZONS CHEST 2 MED CTR MED CTR VIEWS FRONTAL&L ATERAL COMPREHEN 10220 NEW NEW SIVE 5 [facility]ONS METABOLIC MED CTR MED CTR PANEL DAY CARE S5100 ACTIVE ACTIVE SERVICES 5 DAY OF DAY OF ADULT; [facility] PER 15 N N MINUTES HOSPITAL G0378 NEW NEW OBSERVATI 5 [facility] HORIZONS ON MED CTR MED CTR SERVICE PER HOUR IMMUNOASS 77407 NEW NEW AY 5 [facility] ANALYTE MED CTR MED CTR QUANTITAT JOSE ALFREDO NOS DEMO&/JOO 15405 NEW NEW L OF PT 5 [facility] UTILIZ MED CTR MED CTR AERSL GEN/NEB/I NHLR/IP THER 63901 NEW NEW PROPH/DX 5 HORIZONS HORIZONS NJX IV MED CTR MED CTR PUSH SINGLE/1S T SBST/DRUG NONEMERG A0120 [facility] CAC SENIOR TRNSPRT: 5 INC SERVICES [place] 9 [facility]/OT SYS PRESSURIZ 13031 NEW NEW ED/NONPRE 5 [facility]ORIZONS HORIZONS SSURIZED MED CTR MED CTR INHALATIO N TREATMENT THERAPEUT 17314 NEW NEW IC 5 [facility]ORIZONS INJECTION MED CTR MED CTR IV PUSH EACH NEW DRUG COLLECTIO 23525 NEW NEW N VENOUS 5 [facility]IZONS BLOOD MED CTR MED CTR VENIPUNCT URE BLOOD 05530 NEW NEW COUNT 5 [facility] COMPLETE MED CTR MED CTR AUTO&AUTO DIFRNTL WBC THER 74906 NEW NEW PROPH/DX 5 [facility] NJX EA MED CTR MED CTR SEQL IV PUSH SBST/DRUG FAC NONEMERG A0120 [facility] CAC SENIOR TRNSPRT: 5 INC SERVICES [place] 9 OF [facility]/OT SYS DAY CARE S5100 ACTIVE ACTIVE SERVICES 5 DAY OF DAY OF ADULT; [facility] PER 15 N N MINUTES DAY CARE S5100 ACTIVE ACTIVE SERVICES 5 DAY OF DAY OF ADULT; [facility] PER 15 N N MINUTES NONEMERG A0120 [facility] CAC SENIOR TRNSPRT: 5 INC SERVICES [place] 9 [facility]/OTH SYS NONEMERG A0120 [facility] CAC SENIOR TRNSPRT: 5 INC SERVICES [place] 9 OF [facility]/OTH SYS DAY CARE S5100 ACTIVE ACTIVE SERVICES 5 DAY OF DAY OF ADULT; [facility] PER 15 N N MINUTES DAY CARE S5100 ACTIVE ACTIVE SERVICES 5 DAY OF DAY OF ADULT; [facility] PER 15 N N MINUTES NONEMERG A0120 [facility] CAC SENIOR TRNSPRT: 5 INC SERVICES [place] 9 [facility]/OTH SYS NONEMERG A0120 [facility] SENIOR TRNSPRT: 5 INC SERVICES [place] 9 [facility]/OTH SYS AMBULANCE A0429 [facility] SERVICE 5 N-ASHISH Lambert-ASHISH BLS CO EMS CO EMS EMERGENCY TRANSPORT GROUND A0425 [facility] MILEAGE 5 Fausto-ASHISH AMADOR PER CO EMS CO EMS STATUTE MILE BLOOD 76389 [facility] COUNT 5 N N COMPLETE COMMUNTIY COMMUNTIY AUTO&AUTO HOSPITA HOSPITA DIFRNTL WBC COLLECTIO 73570 [facility] N VENOUS 5 N N BLOOD COMMUNTIY COMMUNTIY VENIPUNCT HOSPITA HOSPITA URE DAY CARE S5100 ACTIVE ACTIVE SERVICES 5 DAY OF DAY OF ADULT; [facility] PER 15 N N MINUTES ECG 10386 [facility] ROUTINE 5 N N ECG COMMUNTIY COMMUNTIY W/LEAST HOSPITA HOSPITA 12 LDS TRCG ONLY W/O I&R ECG 01656 [facility] ROUTINE 5 CAMILLA CHANCE ECG EMERGENCY W/LEAST PHYS 12 LDS I&R ONLY BASIC 06900 [facility] METABOLIC 5 N N PANEL COMMUNTIY COMMUNTIY CALCIUM HOSPITA HOSPITA TOTAL DAY CARE S5100 ACTIVE ACTIVE SERVICES 5 DAY OF DAY OF ADULT; [facility] PER 15 N N MINUTES NONEMERG A0120 [facility] SENIOR TRNSPRT: 5 INC SERVICES [place] 9 OF [facility]/OTH SYS NONEMERG A0120 [facility] CAC SENIOR TRNSPRT: 5 INC SERVICES [place] 9 OF [facility]/OTH SYS DAY CARE S5100 ACTIVE ACTIVE SERVICES 5 DAY OF DAY OF ADULT; [facility] PER 15 N N MINUTES CREATINE 71484 [facility] KINASE 5 Y Y TOTAL [facility] COMPREHEN [address] [facility] SIVE 5 Y Y METABOLIC [facility] PANEL LIPID [address] [facility] PANEL 5 [place] [address] [facility] FREE 5 Y Y THYROXINE [facility] BLOOD [address] [facility] COUNT 5 Y Y COMPLETE [facility] [place] [address] [facility] THYROID 5 Y Y STIMULATI [facility] NG HORMONE TSH DAY CARE S5100 ACTIVE ACTIVE SERVICES 5 DAY OF DAY OF ADULT; [facility] PER 15 N N MINUTES NONEMERG A0120 [facility] SENIOR TRNSPRT: 5 INC SERVICES [place] 9 OF [facility]/OTH SYS PRTBLE E0431 JANAE CARDOSO GASEOUS 5 HOME HOME O2 SYS MEDICAL MED[facility] R[facility]; [facility]K O2 CONC 1 [id number] JANAE CARDOSO DEL PORT 5 HOME HOME 85%/>02 MEDICAL MEDICAL CONC AT EQUIPME EQUIPAK PRSC FLW RATE CV STRS 73731 [place] [facility] TST 5 MEDICAL XERS&/OR SERV RX CONT FOUNDATIO ECG I&R N ONLY ALBUTEROL J7613 YOUR YOUR INHAL 5 PHARMACY PHARMACY [facility] PROD THRU DME U DOSE 1 MG CV STRS 19792 [facility] CHANCE TST 5 MEDICAL XERS&/OR SERV RX CONT FOUNDATIO ECG W/O N I&R CV STRS 63336 [facility] TST 5 Y Y XERS&/OR HOSPITAL HOSPITAL RX CONT ECG TRCG ONLY ADMN SET A7003 YOUR YOUR SM VOL 5 PHARMACY PHARMACY NONFILTR ShoutOut PNEUMAT NEBULIZR DISPBL TECHNETIU A9500 [facility] TC-99M 5 Y Y [facility] DX PER STUDY DOSE DEBRIDEME [address] [place] NAIL 5 ANY METHOD 6/> MYOCARDIA 78248 [facility] CHANCE L SPECT 5 MEDICAL MULTIPLE SERV STUDIES FOUNDATIO N PHRM Q0513 YOUR YOUR DISPENSIN 5 PHARMACY PHARMACY G FEE ShoutOut INHALATIO N RX; PER 30 DAYS SUSCEPTIB 66783 NEW NEW LTY STDY 5 [facility] ANTIMICRB MED CTR MED CTR IAL MICRO/AGA R DILUTJ URNLS DIP 87564 NEW NEW 5 [facility] STICK/TAB MED CTR MED CTR LET RGNT AUTO W/O MICROSCOP Y URINALYSI 10959 NEW NEW S 5 [facility] MICROSCOP MED CTR MED CTR IC ONLY CUL BACT 34616 NEW NEW AEROBIC 5 [facility] ADDL MED CTR MED CTR METHS DEFINITIV E EA ISOL CULTURE 15856 NEW NEW BACTERIAL 5 [facility] MED [...] PHYSICIAN ACETATE S S [address] [place] IC 5 GERALDO KIRILL PROPHYLAC [...] EQUIPME EQUIPME MO SUPPLY=[address] LUMBAR 67708 RADIOLOGY BRANDSER SPINE 4 GLORIA W/O ASSOCIATE CONTRAST S OF NOTH MATERIAL DEBRIDEME 29989 [facility] ARON NT NAIL 4 ANY METHOD 6/> THERAPEUT 95[address] ST TH[place] IC 4 GERALDO II QUENTIN PROPHYLAC TIC/DX PHYSICIAN INJECTION S SUBQ/IM INJECTION J1040 [address] ST 4 GERALDO GERALDO METHYLPRE DNISOLONE PHYSICIAN PHYSICIAN ACETATE S S [address] LTY STDY 4 GERALDO GERALDO ANTIMICRB ADDIE ADDIE IAL MICRO/AGA R DILUTJ RADEX 01565 RADIOLOGY HURST TERENCE SPINE 4 LUMBOSACR ASSOCIATE AL 2/3 S OF NOT VIEWS URNLS DIP [address] ST TH[place]ELD 4 GERALDO II QUENTIN STICK/TAB LET RGNT PHYSICIAN NON-AUTO S W/O MICRSCP RADEX [address] [facility] [facility] ADDIE 2 VIEWS RADEX 99727 RADIOLOGY HURST TERENCE SPINE 4 THORACIC ASSOCIATE 3 VIEWS S OF NOT CUL BACT [address] [facility] [facility] 4 [facility] ADDL ADDIE ADDIE METHS DEFINITIV E EA ISOL CULTURE [address] [facility] 4 [facility] ADDIE ADDEI QUANTTATI VE COLONY COUNT URINE NEBULIZER E0570 PATIENT PATIENT WITH 4 AIDS INC AIDS INC COMPRESSO R ADMN SET A7003 YOUR YOUR SM VOL 4 PHARMACY PHARMACY NONFILTR ShoutOut PNEUMAT NEBULIZR DISPBL ALBUTEROL J7613 YOUR YOUR INHAL 4 PHARMACY PHARMACY NON-CP ShoutOut PROD THRU DME U DOSE 1 MG PHRM Q0513 YOUR YOUR DISPENSIN 4 PHARMACY PHARMACY G FEE ShoutOut INHALATIO N RX; PER 30 DAYS HOSPITAL 80871 [facility] DISCHARGE 4 [facility] PSC MANAGEMEN T > 30 MIN SBSQ 65134 [facility] 4 AVA [facility] CARE/DAY 25 MINUTES SBSQ 10787 [facility] [address] [facility] CARE/DAY 15 MINUTES THERAPEUT 10447 CARDINAL CARDINAL ACTVITY 4 [facility] DIRECT PT REHABILIT REHABILIT CONTACT ATION ATION EACH 15 MIN THERAPEUT 58365 CARDINAL CARDINAL IC PX 1/> 4 [facility] AREAS REHABILIT REHABILIT EACH 15 ATION ATION MIN EXERCISES THERAPEUT 90791 CARDINAL CARDINAL IC PX 1/> 4 [facility] AREAS REHABILIT REHABILIT EACH 15 ATION ATION MIN EXERCISES THERAPEUT 24757 [facility] ACTVITY 4 [facility] DIRECT PT REHABILIT REHABILIT CONTACT ATION ATION EACH 15 MIN COLLECTIO 64884 [facility] N VENOUS 4 [facility] BLOOD REHABILIT REHABILIT VENIPUNCT ATION ATION URE BLOOD 10163 [facility] COUNT 4 [facility] COMPLETE REHABILIT REHABILIT AUTO&AUTO ATION ATION DIFRNTL WBC SBSQ 09238 [facility] [address] [facility] CARE/DAY 15 MINUTES BASIC 57235 CARDINAL CARDINAL METABOLIC 4 [facility] PANEL REHABILIT REHABILIT CALCIUM ATION ATION TOTAL SBSQ 59678 [facility] 4 AVA AVA CARE/DAY 25 MINUTES SBSQ 95623 [facility] 4 PHYSICAL GUILHERME CARE/DAY MEDICINE 15 AND MINUTES SBSQ 65335 [facility] 4 PHYSICAL GUILHERME CARE/DAY MEDICINE 25 AND MINUTES NEBULIZER [id number] PATIENT PATIENT WITH 4 AIDS INC AIDS INC COMPRESSO R THERAPEUT 35351 CARDINAL CARDINAL IC PX 1/> 4 [facility] AREAS REHABILIT REHABILIT EACH 15 ATION ATION MIN EXERCISES THERAPEUT 48441 [facility] ACTVITY 4 [facility] DIRECT PT REHABILIT REHABILIT CONTACT ATION ATION EACH 15 MIN SBSQ 25227 [facility] [address] [facility] CARE/DAY 25 MINUTES SBSQ 34024 [facility] 4 [facility] CARE/DAY 25 MINUTES SBSQ 34179 [facility] [address] [facility] CARE/DAY 15 MINUTES BASIC 07913 [facility] METABOLIC 4 [facility] PANEL REHABILIT REHABILIT CALCIUM ATION ATION TOTAL THERAPEUT 76317 [facility] ACTVITY 4 [facility] DIRECT PT REHABILIT REHABILIT CONTACT ATION ATION EACH 15 MIN BLOOD 78298 [facility] COUNT 4 [facility] COMPLETE REHABILIT REHABILIT AUTO&AUTO ATION ATION DIFRNTL WBC COLLECTIO 44553 [facility] N VENOUS 4 [facility] BLOOD REHABILIT REHABILIT VENIPUNCT ATION ATION URE THERAPEUT 61773 [facility] C[facility]IN[facility] IC PX 1/> 4 [facility] AREAS REHABILIT REHABILIT EACH 15 ATION ATION MIN EXERCISES THERAPEUT 36398 CARDINAL CARDINAL IC PX 1/> 4 [facility] AREAS REHABILIT REHABILIT EACH 15 ATION ATION MIN EXERCISES THERAPEUT 98202 [facility] ACTVITY 4 [facility] DIRECT PT REHABILIT REHABILIT CONTACT ATION ATION EACH 15 MIN SBSQ 97063 [facility] 4 [facility] CARE/DAY 25 MINUTES SBSQ 83056 [facility] 4 AVA AVA CARE/DAY 25 MINUTES SBSQ 50256 [facility] 4 [facility] CARE/DAY 15 MINUTES THERAPEUT 26989 [facility] ACTVITY 4 [facility] DIRECT PT REHABILIT REHABILIT CONTACT ATION ATION EACH 15 [place] [address] [facility] TROPONIN 4 Y Y QUANTITAT [facility] [place] [address] [facility] ABDOMEN & 4 Y Y PELVIS [facility] W/CONTRAS T MATERIAL THERAPEUT 59728 CARDINAL CARDINAL IC PX 1/> 4 [facility] AREAS REHABILIT REHABILIT EACH 15 ATION ATION MIN EXERCISES PORTABLE [id number] JANAE JANAE O2 4 HOME HOME CONTENTS MEDICAL MEDICAL GASEOUS 1 EQUIPME EQUIPME MO SUPPLY=[address] [place] [address] [facility] ANGIOGRAP 4 Y Y HY CHEST [facility] W/CONTRAS T/NONCONT RAST LOCM Q9967 [facility] UNIVERS [phone] 4 Y Y MG/ML HOSPITAL HOSPITAL IODINE CONCENTRA TION PER ML RADIOLOGI 38286 [facility] C 4 Y Y EXAMINATI [facility] ON CHEST SINGLE VIEW FRONTAL COMPREHEN 27832 [facility] SIVE 4 Y Y [facility] [place] [address] [facility] LIPASE 4 [place] [address] [facility] MAGNESIUM 4 Y Y HOSPITAL HOSPITAL ECG 56947 [facility] ROUTINE 4 Y Y ECG HOSPITAL HOSPITAL W/LEAST 12 LDS TRCG ONLY W/O I&R NATRIURET 25424 [facility] IC 4 Y Y PEPTIDE [facility] HOSPITAL ECG [address] JACQUELINE ROUTINE 4 MEDICAL ECG SERV W/LEAST FOUNDATIO 12 LDS N I&R ONLY INJ J2930 [facility] METHYLPRD 4 Y Y [facility] SODIUM SUCCNAT TO 125 MG THERAPEUT 26969 CARDINAL CARDINAL IC PX 1/> 4 [facility] AREAS REHABILIT REHABILIT EACH 15 ATION ATION MIN EXERCISES RADEX 40711 [facility] [place] ABDOMEN 1 4 RADIOLOGY III VEE ANTEROPOS TERIOR VIEW RADEX 85682 C[facility] CARDINAL ABDOMEN 4 [facility] COMPL REHABILIT REHABILIT W/DCBTS&/ ATION ATION ERC VIEWS PROTHROMB 89862 [facility] IN TIME 4 Y Y HOSPITAL HOSPITAL THYROID 90523 C[facility] C[facility]INAL HORM 4 [facility] UPTK/THYR REHABILIT REHABILIT OID ATION [place] [address] [facility] TROPONIN 4 Y [facility] [employer] [place] COLLECTIO 56578 CARDINAL CARDINAL N VENOUS 4 [facility] BLOOD REHABILIT REHABILIT VENIPUNCT ATION ATION URE BLOOD 72518 [facility] COUNT 4 Y Y COMPLETE [facility] AUTO&AUTO DIFRNTL WBC THERAPEUT 20461 [facility] IC 4 Y Y INJECTION [facility] [place] [address] [facility] INFUSION 4 Y Y THERAPY/P [facility] ROPHYLAXI S /DX 1ST TO 1 [place] [address] CARDINAL CARDINAL THYROID 4 [facility] STIMULATI REHABILIT REHABILIT NG ATION ATION HORMONE TSH THERAPEUT 14553 C[facility]IN[facility] CARDINAL ACTVITY 4 [facility] DIRECT PT REHABILIT REHABILIT CONTACT ATION ATION EACH 15 MIN SBSQ 11059 [facility] [address] [facility] CARE/DAY 15 MINUTES BASIC 48751 CARDINAL CARDINAL METABOLIC 4 [facility] PANEL REHABILIT REHABILIT [place] [address] C[facility]INAL [facility]ARDINAL THYROXINE 4 [facility] TOTAL REHABILIT REHABILIT ATION ATION SBSQ 86916 [facility] 4 AVA [facility] CARE/DAY [address] [facility] ASTIN 4 Y Y TIME [facility] PARTIAL PLASMA/WH OLE BLOOD INJECTION J1200 [facility] 4 Y Y [facility] RAMINE HCL UP TO 50 MG SBSQ 94921 [facility] [address] [facility] CARE/DAY 15 MINUTES INITIAL 66809 [facility] 4 [facility] CARE/DAY 70 MINUTES THERAPEUT 24850 CARDINAL CARDINAL IC PX 1/> 4 [facility] AREAS REHABILIT REHABILIT EACH 15 ATION ATION MIN EXERCISES THERAPEUT 57136 [facility] C[facility]AL ACTVITY 4 [facility] DIRECT PT REHABILIT REHABILIT CONTACT ATION ATION EACH 15 [place] [address] CARDINAL CARDINAL 1/> AREAS 4 [facility] EA 15 REHABILIT REHABILIT MIN GAIT ATION ATION TRAINJ W/STAIR SBSQ 98418 [facility] [address] [facility] CARE/DAY 15 MINUTES SBSQ 60119 [facility] [address] [facility] CARE/DAY 25 MINUTES THERAPEUT 82811 [facility] ACTVITY 4 [facility] DIRECT PT REHABILIT REHABILIT CONTACT ATION ATION EACH 15 MIN COLLECTIO 66706 C[facility] C[facility]INAL N VENOUS 4 [facility] BLOOD REHABILIT REHABILIT VENIPUNCT ATION ATION URE BLOOD 54426 [facility] COUNT 4 [facility] COMPLETE REHABILIT REHABILIT AUTO&AUTO ATION ATION DIFRNTL WBC THERAPEUT 39067 CARDINAL CARDINAL IC PX 1/> 4 [facility] AREAS REHABILIT REHABILIT EACH 15 ATION ATION MIN EXERCISES THERAPEUT 88558 CARDINAL CARDINAL IC PX 1/> 4 [facility] AREAS REHABILIT REHABILIT EACH 15 ATION ATION MIN EXERCISES PHYSICAL 50833 C[facility] C[facility]AL THERAPY 4 [facility] EVALUATIO REHABILIT REHABILIT N ATION ATION BLOOD 86095 C[facility] CARDINAL COUNT 4 [facility] COMPLETE REHABILIT REHABILIT AUTO&AUTO ATION ATION DIFRNTL WBC COLLECTIO 66106 CARDINAL CARDINAL N VENOUS 4 [facility] BLOOD REHABILIT REHABILIT [place] [address] CARDINAL CARDINAL THYROID 4 [facility] STIMULATI REHABILIT REHABILIT NG ATION ATION HORMONE TSH URNLS DIP 37759 C[facility] C[facility]AL 4 [place] STICK/TAB REHABILIT REHABILIT LET ATION ATION REAGENT AUTO MICROSCOP Y COMPREHEN 69128 CARDINAL CARDINAL SIVE 4 [facility] METABOLIC REHABILIT REHABILIT PANEL ATION ATION SBSQ 65287 [facility] 4 [facility] CARE/DAY 25 MINUTES CULTURE 89471 [facility] BACTERIAL 4 [facility] REHABILIT REHABILIT QUANTTATI ATION ATION VE COLONY COUNT URINE HOSPITAL 83862 [facility] DISCHARGE 4 MEDICAL DAY SERV MANAGEMEN FOUNDATIO T > 30 N MIN INJECTION J1644 [facility] HEPARIN 4 Y Y [facility] PER [address] [facility] METABOLIC 4 Y Y [facility] CALCIUM TOTAL SUSCEPTIB 49821 CARDINAL LTY STDY 4 [facility] ANTIMICRB REHABILIT REHABILIT IAL ATION ATION MICRO/AGA R DILUTJ THERAPEUT 99732 [facility] ACTVITY 4 Y Y DIRECT PT HOSPITAL HOSPITAL CONTACT EACH 15 MIN BLOOD 52445 [facility] 4 Y Y [facility] AUTOMATED INITIAL 60540 [facility] 4 [facility]/DAY PSC [address] [facility] [facility] 4 Y Y [facility] NE SODIUM PER [address] [facility] [facility] 4 Y Y [facility] NE SODIUM PER 250 MG BLOOD 33910 [facility] 4 Y Y [facility] AUTO&[place] [address] [facility] MAGNESIUM [facility] Y Y [facility] BASIC 23782 [facility] METABOLIC 4 Y Y [facility] CALCIUM TOTAL INJECTION J1644 [facility] 4 Y Y [facility] PER 1000 UNITS SBSQ 80776 [facility] 4 MEDICAL CARE/DAY SERV 25 FOUNDATIO MINUTES N SBSQ 00859 [facility] 4 MEDICAL ALA CARE/DAY SERV 25 FOUNDATIO MINUTES CULTURE 20657 [facility] BACTERIAL 4 Y Y [facility] QUANTTATI VE COLONY COUNT URINE CUL BACT 17412 [facility] AEROBIC 4 Y Y [facility] METHS DEFINITIV E EA ISOL INJECTION J1644 [facility] HEPARIN 4 Y Y [facility] PER [address] [facility] METABOLIC 4 Y Y PANEL HOSPITAL HOSPITAL CALCIUM TOTAL INFUSION J7050 [facility] NORMAL 4 Y Y [facility] SOLUTION [address] [place] [address] [facility] MAGNESIUM 4 Y Y HOSPITAL HOSPITAL URNLS DIP 15516 [facility] 4 Y Y STICK/TAB HOSPITAL HOSPITAL LET REAGENT AUTO MICROSCOP Y BLOOD 19126 [facility] COUNT 4 Y Y COMPLETE [facility] AUTO&AUTO DIFRNTL WBC THERAPEUT 53838 [facility] ACTVITY 4 Y Y DIRECT PT HOSPITAL HOSPITAL CONTACT EACH [address] [facility] LTY STDY 4 Y Y ANTIMICRB [facility] IAL MICRO/AGA R DILUTJ INJECTION J0696 [facility] 4 Y Y CEFTRIAXO [facility] NE SODIUM PER [address] IN[address] [facility] 4 Y Y [facility] [address] B[address] [facility] COUNT 4 Y Y COMPLETE [facility] AUTO&[place] [address] [facility] TROPONIN 4 Y Y QUANTITAT [facility] JOSE [place]FR[place] ECG 70072 OR IBETH [facility] ROUTINE 4 MEDICAL ECG SERV W/LEAST FOUNDATIO 12 LDS [place] [address] [facility] MAGNESIUM 4 Y Y HOSPITAL HOSPITAL ECG 56987 [facility] ROUTINE 4 Y Y ECG [facility] W/LEAST 12 LDS TRCG ONLY W/O I&R RADIOLOGI 91994 [place] [facility] C 4 MEDICAL EXAMINATI SERV ON CHEST FOUNDATIO SINGLE VIEW FRONTAL INJECTION J1885 [facility] 4 Y Y KETOROLAC [facility] TROMETHAM INE PER [address] [facility] METABOLIC 4 Y Y PANEL HOSPITAL [facility] CALCIUM TOTAL INJECTION J1644 [facility] HEPARIN 4 Y Y SODIUM [facility] HOSPITAL PER 1000 UNITS SBSQ 98537 [facility] 4 MEDICAL ALA CARE/DAY SERV 25 FOUNDATIO MINUTES SBSQ 33773 [facility] 4 MEDICAL ALA CARE/DAY SERV 25 FOUNDATIO MIN[address] 7[address]49 [facility] ASTIN 4 Y Y TIME HOSPITAL HOSPITAL PARTIAL PLASMA/WH OLE BLOOD INJECTION J1644 [facility] HEPARIN 4 Y Y [facility] PER [address] [facility] BLOOD PH 4 Y Y DIRECT HOSPITAL HOSPITAL WILLEM XCPT PULSE OXIMITRY ECG [address]446 [facility] ROUTINE 4 Y Y ECG HOSPITAL HOSPITAL W/LEAST 12 LDS TRCG ONLY W/O I&[place] [address] [facility] MAGNESIUM 4 Y Y HOSPITAL HOSPITAL COMPREHEN 98777 [facility] SIVE 4 Y Y [facility] HOSPITAL PANEL ECG 96425 [facility] ROUTINE 4 MEDICAL NAN ECG SERV W/LEAST FOUNDATIO 12 LDS N I&R ONLY BLOOD 66869 [facility] COUNT 4 Y Y COMPLETE HOSPITAL [facility] AUTO&AUTO DIFRNTL WBC INJECTION J2405 [facility] 4 Y Y [facility] ON HCL PER [address] [facility] IN TIME 4 Y Y HOSPITAL HOSPITAL SBSQ 23580 [facility] 4 MEDICAL ALA CARE/DAY SERV 35 FOUNDATIO [address]ES INJE[address] J1644 [facility] HEPARIN 4 Y Y [facility] PER [address] IN[address] [facility] HEPARIN 4 Y Y [facility] PER [address] [facility] METABOLIC 4 Y Y PANEL HOSPITAL HOSPITAL CALCIUM TOTAL BLOOD 04595 [facility] UNIVERS[facility] COUNT 4 Y Y COMPLETE [facility]OSPITAL HOSPITAL AUTOMATED BLOOD 68307 [facility] UN[facility] COUNT 4 Y Y [facility]ITAL HOSPITAL AUTOMATED INJECTION J2270 [facility] MORPHINE 4 Y Y [facility] UP TO [address] [facility] METABOLIC 4 Y Y PANEL HOSPITAL HOSPITAL CALCIUM TOTAL INJECTION J1644 [facility] HEPARIN 4 Y Y [facility] PER [address] IN[address] [facility] HEPARIN 4 Y Y [facility] PER [address] [facility] METABOLIC 4 Y Y [facility] HOSPITAL CALCIUM TOTAL INJECTION J2270 [facility] MORPHINE 4 Y Y [facility] UP TO [address] [facility] [facility] COUNT 4 Y Y [facility] [address] [facility] TROPONIN 4 Y Y QUANTITAT [facility] HOSPITAL JOSE [place] [facility]JECTION J2405 [facility] 4 Y Y [facility] HCL PER [address] [place] [address] [facility] THYROID 4 Y Y STIMULATI [facility] NG HORMONE TSH ECG 42482 [facility] ROUTINE 4 MEDICAL ECG SERV W/LEAST FOUNDATIO 12 [place] [address] [facility] MAGNESIUM 4 Y Y HOSPITAL HOSPITAL ECG 30339 [facility] ROUTINE 4 Y Y ECG [facility] HOSPITAL W/LEAST 12 LDS TRCG ONLY W/O I&R BLOOD 32460 [facility] COUNT 4 Y Y COMPLETE [facility] AUTOMATED BASIC 97529 [facility] METABOLIC 4 Y Y PANEL [facility] CALCIUM TOTAL BASIC 64986 [facility] METABOLIC 4 Y Y PANEL [facility] CALCIUM TOTAL BLOOD 02292 [facility] COUNT 4 Y Y COMPLETE [facility] AUTOMATED INJECTION J2270 [facility] MORPHINE 4 Y Y SUL[facility]ATE [facility] HOSPITAL UP TO 10 MG DUP-SCAN 29081 [facility] XTR VEINS 4 Y Y HOSPITAL [facility] UNILATERA L/LIMITED STUDY INJECTION J2405 [facility] 4 Y Y [facility] ON HCL PER 1 MG URNLS DIP [address]25 [place] [address] Y Y STICK/TAB [facility] HOSPITAL LET RGNT AUTO W/O MICROSCOP Y INJECTION J2405 [facility] 4 Y Y [facility] ON HCL PER [address] [facility] METABOLIC 4 Y Y PANEL [facility] CALCIUM TOTAL BASIC 71667 [facility] METABOLIC 4 Y Y PANEL HOSPITAL [facility] CALCIUM TOTAL INFUSION J7040 [facility] NORMAL 4 Y Y [facility]PITAL SOLUTION STERILE CUL BACT 03029 [facility] XCPT 4 Y Y URINE [facility] HOSPITAL BLOOD/STO OL AEROBIC ISOL CUL BACT 31646 [facility] AEROBIC 4 Y Y ADDL [facility] METHS DEFINITIV E EA ISOL INJECTION J2405 [facility] 4 Y Y [facility] ON HCL PER [address] [facility] IC PX 1/> 4 Y Y [facility] EACH 15 MIN EXERCISES IADNA S 90251 [facility] AUREUS 4 Y Y [facility] IN RESIST AMP PROBE TQ BLOOD 99177 [facility] COUNT 4 Y Y COMPLETE [facility] AUTOMATED SUSCEPTIB 68171 [facility] LTY STDY 4 Y Y [facility] IAL MICRO/AGA R DILUTJ THERAPEUT 10533 [facility] UNIVERSIT ACTVITY 4 Y Y DIRECT PT HOSPITAL HOSPITAL CONTACT EACH [address] [facility] ROUTINE 4 Y Y ECG HOSPITAL HOSPITAL W/LEAST 12 LDS TRCG ONLY W/O I&[place] [id number] [facility] HEAD/BRAI 4 Y Y N W/O HOSPITAL HOSPITAL CONTRAST MATERIAL ECG 79813 [facility] IB[facility] ROUTINE 4 MEDICAL ECG SERV W/LEAST FOUNDATIO 12 LDS N I&R ONLY ECG 14399 [place] ROUTINE 4 MEDICAL NAN ECG SERV W/LEAST FOUNDATIO 12 LDS N I&R ONLY ECG 55333 [facility] ROUTINE 4 Y Y ECG HOSPITAL HOSPITAL W/LEAST 12 LDS TRCG ONLY W/O I&R THERAPEUT 23623 [facility] ACTVITY 4 Y Y DIRECT PT HOSPITAL HOSPITAL CONTACT EACH 15 MIN SELF-CARE [address] [facility] UNIVERS /HOME 4 Y Y MGMT HOSPITAL HOSPITAL TRAINING EACH [address] B[address] [facility] COUNT 4 Y Y COMPLETE [facility] AUTOMATED PREALBUMI 61132 [facility] N 4 Y Y HOSPITAL HOSPITAL PHYSICAL 36284 [facility] THERAPY 4 Y Y EVALUATIO [facility] HOSP[facility] N INJE[facility] J2405 [facility] 4 [facility] [address] [facility] METHYLPRD 4 Y Y NISOLONE [facility] SODIUM SUCCNAT TO [address] [facility] METABOLIC 4 Y Y PANEL [facility] CALCIUM TOTAL INJECTION [id number] [facility] 4 Y Y KETOROLAC [facility] TROMETHAM INE PER [address] [facility] NORMAL 4 Y Y SALINE [facility] SOLUTION [address] [facility] [facility] HEPARIN 4 Y Y SODIUM [facility] PER [address] BACT [address]137 [facility] AEROBIC 4 Y Y ADDL [facility] METHS DEFINITIV E EA ISOL CULTURE 74762 [facility] BACTERIAL 4 Y Y [facility] QUANTTATI VE COLONY COUNT URINE FIBRIN 48293 [facility] DGRADJ 4 Y Y PRODUCTS [facility] D-DIM[place] [address] [facility] PHOSPHORU 4 Y Y S [facility] [place] [address] [facility] TROPONIN 4 Y Y QUANTITAT [facility] JOSE ALFREDO SUSCEPTIB 98[address] [facility] LTY STDY 4 Y Y ANTIMICRB [facility] IAL MICRO/[place] [address] [facility] MAGNESIUM 4 Y Y HOSPITAL HOSPITAL COMPREHEN 55905 [facility] SIVE 4 Y Y METABOLIC HOSPITAL HOSPITAL PANEL HOSPITAL [id number] [facility] OBSERVATI 4 Y Y ON HOSPITAL HOSPITAL SERVICE PER HOUR RADIOLOGI 12785 MARLON MONTOYA C 4 MEDICAL BAR EXAMINATI SERV ON CHEST FOUNDATIO [place] FRONTAL URNLS DIP 74288 [facility] 4 Y Y STICK/TAB [facility] HOSPITAL LET REAGENT AUTO MICROSCOP Y HEPATIC 27851 NEW NEW FUNCTION 4 HORIZONS HORIZONS PANEL MED CTR MED CTR ECG 31885 MARLON CRISTINA CHI ROUTINE 4 MEDICAL ECG SERV W/LEAST FOUNDATIO 12 LDS N I&R ONLY IMMUNOASS 35834 NEW NEW AY 4 HORIZONS HORIZONS ANALYTE MED CTR MED CTR QUANTITAT JOSE ALFREDO NOS CREATINE 84116 NEW NEW [place] MB 4 HORIZONS HORIZONS FRACTION MED CTR MED CTR ONLY CREATINE 93155 NEW NEW KINASE 4 HORIZONS HORIZONS TOTAL MED CTR MED CTR ECG 99850 [facility] ROUTINE 4 Y Y ECG HOSPITAL HOSPITAL W/LEAST 12 LDS TRCG ONLY W/O I&R BLOOD 81834 NEW NEW COUNT 4 HORIZONS [facility] COMPLETE [facility] MED CTR AUTO&[place] [id number] NEW NEW TROPONIN 4 [facility] QUANTITAT MED CTR MED CTR JOSE ALFREDO COLLECTIO 95291 NEW NEW N VENOUS 4 [facility] BLOOD MED CTR MED CTR VENIPUNCT URE GROUND A[address] PER [facility] [place] MILE BASIC 03310 NEW NEW METABOLIC 4 [facility] PANEL MED CTR MED CTR CALCIUM TOTAL BLOOD 65185 NEW NEW COUNT 4 [facility] SMEAR MED CTR MED CTR MCRSCP W/MNL DIFRNTL WBC COUNT AMB [id number] ALS [facility]ERGENCY [facility] TRANSPORT LEVEL [address] CT LOWER 18121 NEW NEW EXTREMITY 4 [facility] W/O MED CTR MED CTR CONTRAST MATERIAL COLLECTIO 74146 NEW NEW N VENOUS 4 [facility] BLOOD MED CTR MED CTR VENIPUNCT URE BLOOD 88435 NEW NEW COUNT 4 [facility] COMPLETE MED CTR MED CTR AUTO&AUTO DIFRNTL WBC COMPREHEN 62255 NEW NEW SIVE 4 [facility] METABOLIC MED CTR MED CTR PANEL RADEX 50806 NEW NEW SPINE 4 [facility] THORACOLU MED CTR MED CTR MBAR JUNCTION MIN 2 VIEWS RADEX 25642 F&S AILYN SPINE 4 RADIOLOGY WHITNEY LUMBOSACR PC AL MINIMUM 4 VIEWS RADEX 58627 NEW NEW ANKLE 4 [facility] COMPLETE MED CTR MED CTR MINIMUM 3 VIEWS IM ADM 73157 NEW NEW PRQ ID 4 [facility] SUBQ/IM MED CTR MED CTR NJXS 1 VACCINE GROUND A0425 RTACY TRACY MILEAGE 4 [facility] PER LIFE LIFE STATUTE [place] MILE THER 15328 NEW NEW PROPH/DX 4 [facility] NJX IV MED CTR MED CTR PUSH SINGLE/1S T SBST/DRUG AMB A0427 TRACY TRACY SERVICE 4 [facility] ALS [facility] EMERGENCY [facility] TRANSPORT LEVEL 1 AMB A0427 TRACY TRACY SERVICE 4 [facility] ALS [facility]ERGENC[facility] TRANSPORT LEVEL 1 RADEX 19267 NEW NEW RIBS UNI 4 [facility] W/POSTERO MED CTR MED CTR ANT CH MINIMUM 3 VIEWS THER 98081 NEW NEW PROPH/DX 4 [facility] NJX IV MED CTR MED CTR PUSH SINGLE/1S T SBST/DRUG GROUND A[address] [facility] MILEA 4 [facility] PER LIFE LIFE STATUTE [facility] MILE IM ADM 16568 NEW NEW PRQ ID 4 [facility] SUBQ/IM MED CTR [place] CTR [place]XS [address] [place] [address] F&S OLIVO HEAD/BRAI 4 RADIOLOGY BRA N W/O PC CONTRAST MATERIAL DAY CARE S5100 [facility] 4 N ACTIVE N ACTIVE ADULT; DAY CENT DAY CENT PER 15 MINUTES NONEMERG A0120 [facility] SENIOR TRNSPRT: 4 INC SERVICES [place] 9 [facility]/OT SYS NEBULIZER E0570 PATIENT PATIENT WITH 4 AIDS INC AIDS INC COMPRESSO R PHYSICAL 03461 [facility] 4 N ACTIVE N ACTIVE EVALUATIO DAY CENT DAY CENT N NONEMERG A0120 [facility] SENIOR TRNSPRT: 4 INC SERVICES [place] 9 [facility]/OTH SYS DAY CARE S5100 [facility] 4 N ACTIVE N ACTIVE ADULT; DAY CENT DAY CENT PER 15 MINUTES DAY CARE S5100 [facility] 4 N ACTIVE N ACTIVE ADULT; DAY CENT DAY CENT PER 15 MINUTES NONEMERG A0120 [facility] SENIOR TRNSPRT: 4 INC SERVICES [place] 9 [facility]/OT SYS PHYSICAL 52500 [facility] 4 N ACTIVE N ACTIVE EVALUATIO DAY CENT DAY CENT N PORTABLE E0443 JANAE JANAE O2 4 HOME HOME CONTENTS MEDICAL MEDICAL GASEOUS 1 EQUIPME EQUIPME MO SUPPLY=1 UNIT NONEMERG A0120 [facility] SENIOR TRNSPRT: 4 INC SERVICES [place] 9 [facility]/OT SYS PHYSICAL 45213 [facility] 4 N ACTIVE N ACTIVE EVALUATIO DAY CENT DAY CENT N DAY CARE S5100 [facility] 4 N ACTIVE N ACTIVE ADULT; DAY CENT DAY CENT PER [address] PANEL 4 GERALDO GERAL[facility] MED CTR MED CTR STAFF DEVELOPMENT EDUCATOR ST STAFF DEVELOPMENT EDUCATOR ST COMPREHEN [address] SIVE 4 GERALDO GERALDO METABOLIC MED CTR MED CTR PANEL STAFF DEVELOPMENT EDUCATOR ST [place] [address] FREE 4 GERALDO GERALDO THYROXINE MED CTR MED CTR STAFF DEVELOPMENT EDUCATOR ST ST[place] [address] THYROID 4 GERALDO GERALDO STIMULATI MED CTR MED CTR NG STAFF DEVELOPMENT EDUCATOR ST STAFF DEVELOPMENT EDUCATOR ST HORMONE TSH SUSCEPTIB [address] LTY STDY 4 GERALDO GERALDO ANTIMICRB MED CTR MED CTR IAL STAFF DEVELOPMENT EDUCATOR ST STAFF DEVELOPMENT EDUCATOR ST MICRO/AGA R DILUTJ CUL BACT [address] AEROBIC 4 GERALDO GERALDO ADDL MED CTR MED CTR METHS STAFF DEVELOPMENT EDUCATOR ST STAFF DEVELOPMENT EDUCATOR ST DEFINITIV E EA ISOL CULTURE 82470 ST ST BACTERIAL 4 GERALDO GERALDO MED CTR MED CTR QUANTTATI STAFF DEVELOPMENT EDUCATOR ST STAFF DEVELOPMENT EDUCATOR ST VE COLONY COUNT URINE PHYSICAL 19454 [facility] 4 N ACTIVE N ACTIVE EVALUATIO DAY CENT DAY CENT N NONEMERG A0120 [facility] SENIOR TRNSPRT: 4 INC SERVICES [place] 9 OF [facility]/OTH SYS DAY CARE S5100 [facility] 4 N ACTIVE N ACTIVE ADULT; DAY CENT DAY CENT PER 15 MINUTES DAY CARE S5100 [facility] 4 N ACTIVE N ACTIVE ADULT; DAY CENT DAY CENT PER 15 MINUTES NONEMERG A0120 [facility] SENIOR TRNSPRT: 4 INC SERVICES [place] 9 OF [facility]/OTH SYS PHYSICAL 41175 [facility] 4 N ACTIVE N ACTIVE EVALUATIO DAY CENT DAY CENT N NONEMERG A0120 [facility] SENIOR TRNSPRT: 4 INC SERVICES [place] 9 OF [facility]/OTH SYS DAY CARE S5100 [facility] 4 N ACTIVE N ACTIVE ADULT; DAY CENT DAY CENT PER 15 MINUTES DAY CARE S5100 [facility] 4 N ACTIVE N ACTIVE ADULT; DAY CENT DAY CENT PER 15 MINUTES NONEMERG A0120 [facility] SENIOR TRNSPRT: 4 INC SERVICES [place] 9 OF [facility]/OTH SYS NONEMERG A0120 [facility] SENIOR TRNSPRT: 4 INC SERVICES [place] 9 OF [facility]/OTH SYS NONEMERG A0120 [facility] SENIOR TRNSPRT: 4 INC SERVICES [place] 9 OF [facility]/OTH SYS DAY CARE S5100 [facility] SERVICES 4 N ACTIVE N ACTIVE ADULT; DAY CENT DAY CENT PER 15 MINUTES DAY CARE S5100 [facility] 4 N ACTIVE N ACTIVE ADULT; DAY CENT DAY CENT PER 15 MINUTES NONEMERG A0120 [facility] SENIOR TRNSPRT: 4 INC SERVICES [place] 9 OF [facility]/OTH SYS NONEMERG A0120 [facility] SENIOR TRNSPRT: 4 INC SERVICES [place] 9 OF [facility] SYS PHYSICAL 84758 [facility] 4 N ACTIVE N ACTIVE EVALUATIO DAY CENT DAY CENT N DAY CARE S5100 [facility] 4 N ACTIVE N ACTIVE ADULT; DAY CENT DAY CENT PER 15 MINUTES NEBULIZER E0570 PATIENT PATIENT WITH 4 AIDS INC AIDS INC COMPRESSO R PHYSICAL 01272 [facility] 4 N ACTIVE N ACTIVE EVALUATIO DAY CENT DAY CENT N NONEMERG A0120 [facility] SENIOR TRNSPRT: 4 INC SERVICES [facility] REGION 9 OF [facility] DAY CARE S5100 [facility] 4 N ACTIVE N ACTIVE ADULT; DAY CENT DAY CENT PER 15 MINUTES DAY CARE S5100 [facility] 4 N ACTIVE N ACTIVE ADULT; DAY CENT DAY CENT PER 15 MINUTES NONEMERG A0120 [facility] SENIOR TRNSPRT: 4 INC SERVICES [facility] REGION 9 OF [facility] SYS NONEMERG A0120 [facility] SENIOR TRNSPRT: 4 INC SERVICES [facility] REGION 9 OF [facility] SYS PORTABLE E0443 JANAE JANAE O2 4 HOME HOME CONTENTS MEDICAL MEDICAL GASEOUS 1 EQUIPME EQUIPME MO SUPPLY=1 UNIT DAY CARE S5100 [facility] 4 N ACTIVE N ACTIVE ADULT; DAY CENT DAY CENT PER 15 MINUTES DAY CARE S5100 [facility] 4 N ACTIVE N ACTIVE ADULT; DAY CENT DAY CENT PER 15 MINUTES NONEMERG A0120 [facility] SENIOR TRNSPRT: 4 [facility] OF [facility] SYS PHYSICAL 32961 [facility] 4 N ACTIVE N ACTIVE EVALUATIO DAY CENT DAY CENT N PHYSICAL 97941 [facility] 4 N ACTIVE N ACTIVE EVALUATIO DAY CENT DAY CENT N NONEMERG A0120 [facility] SENIOR TRNSPRT: 4 INC SERVICES [place] 9 OF [facility]/OT SYS DAY CARE S5100 [facility] 4 N ACTIVE N ACTIVE ADULT; DAY CENT DAY CENT PER 15 MINUTES DAY CARE S5100 [facility] 4 N ACTIVE N ACTIVE ADULT; DAY CENT DAY CENT PER 15 MINUTES NONEMERG A0120 [facility] SENIOR TRNSPRT: 4 INC SERVICES [place] 9 OF [facility]/OTH SYS NONEMERG A0120 [facility] SENIOR TRNSPRT: 4 [facility]OT SYS DAY CARE S5100 [facility] 4 N ACTIVE N ACTIVE ADULT; DAY CENT DAY CENT PER 15 MINUTES NEBULIZER E0570 PATIENT PATIENT WITH 4 AIDS INC AIDS INC COMPRESSO R NONEMERG A0120 [facility] SENIOR TRNSPRT: 4 INC SERVICES [facility] 9 OF [facility]OT SYS DAY CARE S5100 [facility] 4 N ACTIVE N ACTIVE ADULT; DAY CENT DAY CENT PER 15 MINUTES DAY CARE S5100 [facility] 4 N ACTIVE N ACTIVE ADULT; DAY CENT DAY CENT PER 15 MINUTES NONEMERG A0120 [facility] SENIOR TRNSPRT: 4 INC SERVICES [facility] REGION 9 OF [facility]/OT SYS PORTABLE E0443 JANAE JANAE O2 4 HOME HOME CONTENTS MEDICAL MEDICAL GASEOUS 1 EQUIPME EQUIPME MO SUPPLY=1 UNIT NONEMERG A0120 [facility] SENIOR TRNSPRT: 4 [facility]OT SYS DAY CARE S5100 [facility] 4 N ACTIVE N ACTIVE ADULT; DAY CENT DAY CENT PER 15 MINUTES DAY CARE S5100 [facility] 4 N ACTIVE N ACTIVE ADULT; DAY CENT DAY CENT PER 15 MINUTES NONEMERG A0120 [facility] SENIOR TRNSPRT: 4 INC SERVICES [place] 9 OF [facility]/OTH SYS NONEMERG A0120 [facility] SENIOR TRNSPRT: 4 INC SERVICES [place] 9 OF [facility]/OTH SYS PHYSICAL 43430 [facility] 4 N ACTIVE N ACTIVE EVALUATIO DAY CENT DAY CENT N DAY CARE S5100 [facility] 4 N ACTIVE N ACTIVE ADULT; DAY CENT DAY CENT PER 15 MINUTES DAY CARE S5100 [facility] 4 N ACTIVE N ACTIVE ADULT; DAY CENT DAY CENT PER 15 MINUTES NONEMERG A0120 [facility] SENIOR TRNSPRT: 4 INC SERVICES [facility] REGION 9 OF [facility]/OTH SYS NONEMERG A0120 [facility] SENIOR TRNSPRT: 4 INC SERVICES [facility] REGION 9 OF [facility]/OTH SYS DAY CARE S5100 [facility] 4 N ACTIVE N ACTIVE ADULT; DAY CENT DAY CENT PER 15 MINUTES DAY CARE S5100 [facility] 4 N ACTIVE N ACTIVE ADULT; DAY CENT DAY CENT PER 15 MINUTES NONEMERG A0120 [facility] SENIOR TRNSPRT: 4 INC SERVICES [facility] REGION 9 OF [facility]/OT SYS PHYSICAL 45127 [facility] 4 N ACTIVE N ACTIVE EVALUATIO DAY CENT DAY CENT N NONEMERG A0120 [facility] SENIOR TRNSPRT: 4 INC [facility]/OTH SYS DAY CARE S5100 [facility] 4 N ACTIVE N ACTIVE ADULT; DAY CENT DAY CENT PER 15 MINUTES DAY CARE S5100 [facility] 4 N ACTIVE N ACTIVE ADULT; DAY CENT DAY CENT PER 15 MINUTES NONEMERG A0120 [facility] SENIOR TRNSPRT: 4 INC SERVICES [facility] 9 OF [facility]/OTH SYS NONEMERG A0120 [facility] SENIOR TRNSPRT: 4 INC SERVICES [place] 9 OF [facility]/OT SYS DAY CARE S5100 [facility] 4 N ACTIVE N ACTIVE ADULT; DAY CENT DAY CENT PER 15 MINUTES DAY CARE S5100 [facility] 4 N ACTIVE N ACTIVE ADULT; DAY CENT DAY CENT PER 15 MINUTES NONEMERG A0120 [facility] CAC SENIOR TRNSPRT: 4 INC SERVICES [place] 9 OF [facility]/OT SYS NONEMERG A0120 [facility] CAC SENIOR TRNSPRT: 4 INC SERVICES [place] 9 OF [facility] DAY CARE S5100 [facility] 4 N ACTIVE N ACTIVE ADULT; DAY CENT DAY CENT PER 15 MINUTES DAY CARE S5100 [facility] 4 N ACTIVE N ACTIVE ADULT; DAY CENT DAY CENT PER 15 MINUTES NONEMERG A0120 [facility] SENIOR TRNSPRT: 4 INC SERVICES [place] 9 OF [facility] PHYSICAL 95087 [facility] 4 N ACTIVE N ACTIVE EVALUATIO DAY CENT DAY CENT N NEBULIZER E0570 PATIENT PATIENT WITH 4 AIDS INC AIDS INC COMPRESSO R NONEMERG A0120 [facility] CAC SENIOR TRNSPRT: 4 INC SERVICES [facility] 9 OF [facility] DAY CARE S5100 [facility] 4 N ACTIVE N ACTIVE ADULT; DAY CENT DAY CENT PER 15 MINUTES DAY CARE S5100 [facility] 4 N ACTIVE N ACTIVE ADULT; DAY CENT DAY CENT PER 15 MINUTES NONEMERG A0120 [facility] CAC SENIOR TRNSPRT: 4 INC SERVICES [place] 9 OF [facility]/OT SYS PORTABLE E0443 JANAE JANAE O2 4 HOME HOME CONTENTS MEDICAL MEDICAL GASEOUS 1 EQUIPME EQUIPME MO SUPPLY=1 UNIT NONEMERG A0120 [facility] CAC SENIOR TRNSPRT: 4 INC SERVICES [place] 9 OF [facility]/OTH SYS DAY CARE S5100 [facility] 4 N ACTIVE N ACTIVE ADULT; DAY CENT DAY CENT PER 15 MINUTES NONEMERG A0120 [facility] SENIOR TRNSPRT: 4 INC SERVICES [place] 9 OF [facility]/OTH SYS NONEMERG A0120 [facility] SENIOR TRNSPRT: 4 INC SERVICES [place] 9 OF [facility]/OTH SYS DAY CARE S5100 [facility] 4 N ACTIVE N ACTIVE ADULT; DAY CENT DAY CENT PER 15 MINUTES DAY CARE S5100 [facility] 4 N ACTIVE N ACTIVE ADULT; DAY CENT DAY CENT PER 15 MINUTES NONEMERG A0120 [facility] SENIOR TRNSPRT: 4 INC SERVICES [place] 9 OF [facility]/OTH SYS PHYSICAL 00577 [facility] 4 N ACTIVE N ACTIVE EVALUATIO DAY CENT DAY CENT N NONEMERG A0120 [facility] SENIOR TRNSPRT: 4 INC SERVICES [place] 9 OF [facility]/OTH SYS DAY CARE S5100 [facility] 4 N ACTIVE N ACTIVE ADULT; DAY CENT DAY CENT PER 15 MINUTES DAY CARE S5100 [facility] 4 N ACTIVE N ACTIVE ADULT; DAY CENT DAY CENT PER 15 MINUTES NONEMERG A0120 [facility] SENIOR TRNSPRT: 4 INC SERVICES [place] 9 OF [facility]/OTH SYS PHYSICAL 74927 [facility] 4 N ACTIVE N ACTIVE EVALUATIO DAY CENT DAY CENT N NONEMERG A0120 [facility] SENIOR TRNSPRT: 4 INC SERVICES [place] 9 OF [facility]/OTH SYS DAY CARE S5100 [facility] 4 N ACTIVE N ACTIVE ADULT; DAY CENT DAY CENT PER 15 MINUTES DAY CARE S5100 [facility] 4 N ACTIVE N ACTIVE ADULT; DAY CENT DAY CENT PER 15 MINUTES NONEMERG A0120 [facility] SENIOR TRNSPRT: 4 INC SERVICES [facility] 9 OF [facility]/OTH SYS NONEMERG A0120 [facility] SENIOR TRNSPRT: 4 INC SERVICES [facility] REGION 9 OF [facility]/OTH SYS PHYSICAL 99587 [facility] 4 N ACTIVE N ACTIVE EVALUATIO DAY CENT DAY CENT N DAY CARE S5100 [facility] 4 N ACTIVE N ACTIVE ADULT; DAY CENT DAY CENT PER 15 MINUTES DAY CARE S5100 [facility] 4 N ACTIVE N ACTIVE ADULT; DAY CENT DAY CENT PER 15 MINUTES NONEMERG A0120 [facility] SENIOR TRNSPRT: 4 INC SERVICES [facility] REGION 9 OF [facility]/OT SYS NONEMERG A0120 [facility] SENIOR TRNSPRT: 4 INC SERVICES [facility] REGION 9 OF [facility]/OT SYS PHYSICAL 44561 [facility] 4 N ACTIVE N ACTIVE EVALUATIO DAY CENT DAY CENT N DAY CARE S5100 [facility] 4 N ACTIVE N ACTIVE ADULT; DAY CENT DAY CENT PER 15 MINUTES DAY CARE S5100 [facility] 4 N ACTIVE N ACTIVE ADULT; DAY CENT DAY CENT PER 15 MINUTES NONEMERG A0120 [facility] SENIOR TRNSPRT: 4 [facility]/OTH SYS NONEMERG A0120 [facility] SENIOR TRNSPRT: 4 INC SERVICES [place] 9 OF [facility]/OTH SYS DAY CARE S5100 [facility] 4 N ACTIVE N ACTIVE ADULT; DAY CENT DAY CENT PER 15 MINUTES DAY CARE S5100 [facility] 4 N ACTIVE N ACTIVE ADULT; DAY CENT DAY CENT PER 15 MINUTES NONEMERG A0120 [facility] CAC TRNSPRT: 4 INC INC [place] REGION 9 [facility]/OTH SYS PHYSICAL 72983 [facility] 4 N ACTIVE N ACTIVE EVALUATIO DAY CENT DAY CENT N NONEMERG A0120 [facility] CAC TRNSPRT: 4 INC INC [place] REGION 9 [facility]/OTH SYS DAY CARE S5100 [facility] SERVICES 4 N ACTIVE N ACTIVE ADULT; DAY CENT DAY CENT PER 15 MINUTES NEBULIZER E0570 PATIENT PATIENT WITH 4 AIDS INC AIDS INC COMPRESSO R PORTABLE E0443 JANAE JANAE O2 4 HOME HOME CONTENTS MEDICAL MEDICAL GASEOUS 1 EQUIPME EQUIPME MO SUPPLY=[address] [facility] 4 Y Y [facility] ON HCL PER [address] [place] [id number] [facility] 1/> AREAS 4 Y Y EA 15 HOSPITAL HOSPITAL MIN GAIT TRAINJ W/STAIR BLOOD 06066 [facility] COUNT 4 Y Y COMPLETE HOSPITAL HOSPITAL AUTOMATED HOSPITAL [id number] [facility] OBSERVATI 4 Y Y ON HOSPITAL HOSPITAL SERVICE PER HOUR OBSERVATI 58989 STEFAN MELENDREZ ON CARE 4 NURSE DISCHARGE PRACTITIO NER GR MANAGEMEN T BASIC 41834 [facility] METABOLIC 4 Y Y PANEL [facility] CALCIUM TOTAL INJECTION [id number] [facility] HEPARIN 4 Y Y SODIUM [facility] HOSPITAL PER [address] IN[address] [facility] HEPARIN 4 Y Y [facility] PER [address] [facility] METABOLIC 4 Y Y PANEL [facility] CALCIUM TOTAL SBSQ 01742 KMRYAN MELENDREZ OBSERVATI 4 NURSE ON PRACTITIO CARE/DAY NER GR [address] [facility] BACTERIAL 4 Y Y HOSPITAL [facility] QUANTTATI VE COLONY COUNT URINE CUL BACT 11595 [facility] AEROBIC 4 Y Y ADDL [facility] METHS DEFINITIV E EA ISOL URNLS DIP 44685 [facility] 4 Y Y STICK/TAB HOSPITAL HOSPITAL LET RGNT AUTO W/O MICROSCOP Y BLOOD 16843 [facility] COUNT 4 Y Y [facility] AUTOMATED SUSCEPTIB [address]2967 [facility] LTY STDY 4 Y Y [facility] IAL MICRO/AGA R DILUTJ INJECTION [id number] [facility] 4 Y Y [facility] ON HCL PER [address] [facility] 4 Y Y [facility] PER [address] [facility] [facility] COUNT 4 Y Y [facility] [place] [address] [facility] MAGNESIUM 4 Y Y [facility] BASIC 66333 [facility] METABOLIC 4 Y Y [facility] CALCIUM TOTAL [facility]JECTION J1644 [facility] HEPARIN 4 Y Y [facility] PER [address] [facility] [facility] HEPARIN 4 Y Y [facility] PER [address] [facility] METABOLIC 4 Y Y [facility] CALCIUM TOTAL CUL BACT 63154 [facility] XCPT 4 Y Y URINE [facility] BLOOD/STO OL AEROBIC ISOL SBSQ 17725 [facility] OBSERVATI 4 NURSE ON PRACTITIO CARE/DAY NER GR 25 MINUTES BLOOD 92922 [facility] 4 Y Y [facility] AUTOMATED INJECTION [id number] [facility] 4 Y Y [facility] ON [facility]CL PER [id number] [facility] AUREUS 4 Y Y [facility] IN RESIST AMP PROBE TQ PHYSICAL 96862 [facility] THERAPY 4 Y Y EV[facility]ATIMARY [facility]MOGENE [facility] N THERAPEUT 82903 [facility] IC PX 1/> 4 Y Y [facility] EACH 15 MIN EXERCISES TECHNETIU A9500 [facility] TC-99M 4 Y Y [facility] DX PER STUDY DOSE CV STRS 44417 [facility] TST 4 Y Y XERS&/OR HOSPITAL HOSPITAL RX CONT ECG TRCG ONLY CV STRS 87751 [facility] CHANCE TST 4 MEDICAL XERS&/OR SERV RX CONT FOUNDATIO ECG W/O I&R INJECTION J2270 [facility] MORPHINE 4 Y Y [facility] UP TO [address] B[address] [facility] COUNT 4 Y Y [facility] AUTOMATED MYOCARDIA 42170 [facility] EVANGELIST[facility] CHANCE L SPECT 4 MEDICAL MULTIPLE SERV STUDIES FOUNDATIO INJ J1720 [facility] 4 Y Y [facility] SODIUM SUCCINATE TO 100 MG LIPID [address] [place] [address] [place] [address] [place] ANGIOGRAP 4 MEDICAL SHIRAZ HY CHEST SERV W/CONTRAS FOUNDATIO T/NONCONT RAST CV STRS 85730 [facility] EVANGELIST[facility] CHANCE TST 4 MEDICAL XERS&/OR SERV RX CONT FOUNDATIO ECG I&R ONLY NATRIURET 90746 [facility] [place] 4 Y Y [facility] ECHO 43943 [facility], TTHRC R-T 4 MEDICAL JR. VEE 2D SERV W/WOM-MOD FOUNDATIO E COMPL SPEC&COLR D SBSQ 06080 [facility] [place] [facility] OBSERVATI 4 NURSE ON PRACTITIO CARE/DAY NER GR 25 MINUTES BASIC [address] [place] [address] Y [facility] CALCIUM TOTAL INJECTION J[address] ON 0.1 MG INJECTION J1644 [place] [address] Y Y [facility] PER 1000 UNITS INJECTION J1200 [place] [address] Y [facility] RAMINE HCL UP TO 50 MG AMB A0427 [facility] 4 Fausto-ASHISH [facility] CO EMS EMERGENCY TRANSPORT LEVEL 1 INJECTION J1644 [place] [address] Y Y [facility] PER 1000 UNITS INJECTION J2785 [address] ON 0.1 MG BASIC [address] [place] [address] Y [facility] CALCIUM TOTAL INJECTION C9113 [facility] UNIVERS 4 Y Y [facility] OLE SODIUM PER VIAL THROMBOPL 10683 [facility] ASTIN 4 Y Y TIME [facility] PARTIAL PLASMA/WH OLE BLOOD ECG 01978 [facility] CRISTINA CHI ROUTINE 4 MEDICAL ECG SERV W/LEAST FOUNDATIO 12 LDS N I&R ONLY HEMOGLOBI 02214 [facility] [facility] N 4 Y Y GLYCOSYLA [facility] KURT A1C LOCM Q9967 [facility] [phone] Y Y MG/ML [facility] IODINE CONCENTRA TION PER ML RADIOLOGI 00843 MARLON JAN C 4 MEDICAL BAR EXAMINATI SERV ON CHEST FOUNDATIO [place]ING[place] FRONTAL DAY CARE S5100 [facility] 4 N ACTIVE N ACTIVE ADULT; DAY CENT DAY CENT PER [address] [facility] ROUTINE 4 Y Y ECG [facility] W/LEAST 12 LDS TRCG ONLY W/[place] [address] [facility] TROPONIN 4 Y Y [facility] JOSE ALFREDO BLOOD 17971 [facility] COUNT 4 Y Y [facility] AUTOMATED GROUND A0425 [facility] MILEAGE 4 N-ASHISH Lambert-ASHISH PER CO EMS CO EMS STATUTE MILE NONEMER A0120 LKLP CAC LKLP CAC TRNSPRT: 4 INC INC [place] REGION 9 REGION 9 [facility] ARE[facility]/OTH SYS PROTHROMB 40707 [facility] IN TIME Y Y [facility] NONEMERG A0120 LKLP CAC LKLP CAC TRNSPRT: 4 INC INC [place] [facility] 9 REGION 9 [facility] AREA/OTH SYS DAY CARE S5100 [facility] 4 N ACTIVE N ACTIVE ADULT; DAY CENT DAY CENT PER 15 MINUTES DAY CARE S5100 [facility] 4 N ACTIVE N ACTIVE ADULT; DAY CENT DAY CENT PER 15 MINUTES NEBULIZER E0570 PATIENT PATIENT WITH 4 AIDS INC AIDS INC COMPRESSO R DAY CARE S5100 [facility] 4 N ACTIVE N ACTIVE ADULT; DAY CENT DAY CENT PER 15 MINUTES DAY CARE S5100 [facility] 4 N ACTIVE N ACTIVE ADULT; DAY CENT DAY CENT PER 15 MINUTES DAY CARE S5100 [facility] 4 N ACTIVE N ACTIVE ADULT; DAY CENT DAY CENT PER 15 MINUTES DAY CARE S5100 [facility] 4 N ACTIVE N ACTIVE ADULT; DAY CENT DAY CENT PER 15 MINUTES PHYSICAL 50658 [facility] 4 N ACTIVE N ACTIVE EVALUATIO DAY CENT DAY CENT N PORTABLE E0443 JANAE JANAE O2 4 HOME HOME CONTENTS MEDICAL MEDICAL GASEOUS 1 EQUIPME EQUIPME MO SUPPLY=1 UNIT DAY CARE S5100 [facility] 4 N ACTIVE N ACTIVE ADULT; DAY CENT DAY CENT PER 15 MINUTES DAY CARE S5100 [facility] 4 N ACTIVE N ACTIVE ADULT; DAY CENT DAY CENT PER 15 MINUTES DAY CARE S5100 [facility] 4 N ACTIVE N ACTIVE ADULT; DAY CENT DAY CENT PER 15 MINUTES NONEMERG A0120 LKLP CAC LKLP CAC TRNSPRT: 4 INC INC [place] 9 REGION 9 [facility] ARE[facility]/OTH SYS NONEMERG A0120 LKLP CAC LKLP CAC TRNSPRT: 4 INC INC [place] [facility] 9 REGION 9 [facility] ARE[facility]/OTH SYS DAY CARE S5100 [facility] 4 N ACTIVE N ACTIVE ADULT; DAY CENT DAY CENT PER 15 MINUTES RADIOLOGI 26843 [facility] C 4 [facility] EXAMINATI HOSP HOSP ON CHEST SING[place] VIEW FRONTAL ECG 41691 [facility] ROUTINE 4 [facility] ECG HOSP HOSP W/LEAST 12 LDS TRCG ONLY W/O I&R CT THORAX 34284 [facility] W/O 4 RADIOLOGI PET CONTRAST C MATERIAL PROFESSIO URNLS DIP 58263 [facility] 4 [facility] STICK/TAB HOSP HOSP LET RGNT AUTO W/O MICROSCOP Y INJECTION J2405 [facility] 4 [facility]IN [facility] ONDANSETR HOSP HOSP ON HCL [place] [address] [place] [address] [facility] ABDOMEN & 4 RADIOLOGI PET PELVIS C W/[place] [address] [facility] TROPONIN 4 [facility] QUANTITAT HOSP HOSP JOSE ALFREDO INJECTION C9113 [facility] 4 [facility] PANTOPRAZ HOSP HOSP OLE SODIUM PER VIAL AMB A0422 TRACY MOLINA OXYGEN&O[address] [place] [address] SUPPLIES LIFE LIFE LIFE SQUAD SQUAD SUSTAININ G SITUATION THROMBOPL 71700 [facility] ASTIN 4 [facility] TIME HOSP HOSP PARTIAL PLASMA/WH OLE BLOOD AMB A0427 TRACY MOLINA SERVICE [address] [place] [address] ALS LIFE LIFE EMERGENCY SQUAD SQUAD TRANSPORT LEVEL 1 BLOOD 24420 [facility] COUNT 4 [facility] COMPLETE HOSP HOSP AUTO&AUTO DIFRNTL WBC COLLECTIO 66295 [facility] N VENOUS 4 [facility] BLOOD HOSP HOSP VENIPUNCT URE NONINVASI 58021 [facility] VE 4 [facility] EAR/PULSE HOSP HOSP OXIMETRY MULTIPLE DETER THERAPEUT 92362 [facility] IC 4 [facility] INJECTION HOSP HOSP IV PUSH EACH NEW DRUG CATH CLCT P9612 [facility] SPECIMEN 4 [facility] SINGLE HOSP HOSP PT ALL PLACES SERVICE PROTHROMB 55422 [facility] IN TIME 4 [facility]IN [facility]IN HOSP HOSP THER 40092 [facility] PROPH/DX 4 [facility] NJX IV HOSP HOSP PUSH SINGLE/1S T SBST/DRUG ECG 95727 [facility] ROUTINE 4 UATSDIN [facility] ECG HOSP HOSP W/LEAST 12 LDS TRCG ONLY W/O I&R GROUND A0425 TRACY MOLINA MILEAGE [address] [place] [address] PER LIFE LIFE [place] [address] [facility] AMYLASE 4 [facility]IN U[facility]IN HOSP HOSP COMPREHEN 84580 [facility] SIVE 4 [facility] [address] [facility] LIPASE 4 [facility] HOSP HOSP ECG 04157 [facility] MARYA ROUTINE 4 EMERGENCY DIR ECG PHYS PSC W/LEAST 12 LDS I&R ONLY NATRIURET 37381 [facility] IC 4 [facility] PEPTIDE HOSP HOSP ADMN SET A7005 PATIENT PATIENT W/SM VOL 4 AIDS INC AIDS INC NONFILTR NEBULIZR NON-DISPB L NEBULIZER E0570 PATIENT PATIENT WITH 4 AIDS INC AIDS INC COMPRESSO R PHARM G0333 ADDIE ADDIE DISP[address] INHAL DRUG DRUG RX; INITIAL 30-DAY SUPPLY THERAPEUT [address] [facility] IC 4 GERALDO KIRILL PROPHYLAC TIC/DX PHYSICIAN INJECTION S SUBQ/IM INJECTION J1040 [facility] 4 GERALDO KIRILL METHYLPRE DNISOLONE PHYSICIAN ACETATE S 80 MG DAY CARE S5100 [facility] 4 N ACTIVE N ACTIVE ADULT; DAY CENT DAY CENT PER 15 MINUTES DAY CARE S5100 [facility] 4 N ACTIVE N ACTIVE ADULT; DAY CENT DAY CENT PER 15 MINUTES DAY CARE S5100 [facility] 4 N ACTIVE N ACTIVE ADULT; DAY CENT DAY CENT PER 15 MINUTES PORTABLE E0443 JANAE JANAE O2 4 HOME HOME CONTENTS MEDICAL MEDICAL GASEOUS 1 EQUIPME EQUIPME MO SUPPLY=1 UNIT NONEMERG A0120 LKLP CAC LKLP CAC TRNSPRT: 4 INC INC [place] [address] [place] [address]/OTH SYS DAY CARE S5100 [facility] 4 N ACTIVE N ACTIVE ADULT; DAY CENT DAY CENT PER 15 MINUTES DAY CARE S5100 [facility] 4 N ACTIVE N ACTIVE ADULT; DAY CENT DAY CENT PER 15 MINUTES NONEMERG A0120 LKLP CAC LKLP CAC TRNSPRT: 4 INC INC [place] REGION 9 [facility] AREA/OTH SYS NONEMERG A0120 LKLP CAC LKLP CAC TRNSPRT: 4 INC INC [place] [address] [place] [address]/OTH SYS DAY CARE S5100 [facility] 4 N ACTIVE N ACTIVE ADULT; DAY CENT DAY CENT PER [address] 4 GERALDO GERALDO METHYLPRE DNISOLONE PHYSICIAN PHYSICIAN ACETATE S S [address] [facility] IC 4 GERALDO II QUENTIN PROPHYLAC TIC/DX PHYSICIAN INJECTION S SUBQ/IM DAY CARE S5100 [facility] 4 N ACTIVE N ACTIVE ADULT; DAY CENT DAY CENT PER 15 MINUTES RADIOLOGI 00077 RADIOLOGY SCHMITTER C 4 NEREIDA EXAMINATI ASSOCIATE ON CHEST S [facility] SINGLE VIEW FRONTAL URNLS DIP 91892 [facility] 4 GERALDO KIRILL STICK/TAB LET RGNT PHYSICIAN NON-AUTO S W/O MICRSCP ECG 207[address] ST [facility] ROUTINE 4 GERALDO RAL ECG MED CTR W/LEAST 12 LDS I&R ONLY PORTABLE E0443 JANAE JANAE O2 4 HOME HOME CONTENTS MEDICAL MEDICAL GASEOUS 1 EQUIPME EQUIPME MO SUPPLY=1 UNIT NONEMERG A0120 LKLP CAC LKLP CAC TRNSPRT: 4 INC INC [facility]/OTH SYS DAY CARE S5100 [facility] 4 N ACTIVE N ACTIVE ADULT; DAY CENT DAY CENT PER 15 MINUTES DAY CARE S5100 [facility] 4 N ACTIVE N ACTIVE ADULT; DAY CENT DAY CENT PER 15 MINUTES NONEMERG A0120 LKLP CAC LKLP CAC TRNSPRT: 4 INC INC MINI-[address]/OTH SYS NONEMERG A0120 LKLP CAC LKLP CAC TRNSPRT: 4 INC INC [facility]/OTH SYS DAY CARE S5100 [facility] 4 N ACTIVE N ACTIVE ADULT; DAY CENT DAY CENT PER 15 MINUTES DAY CARE S5100 [facility] 3 N ACTIVE N ACTIVE ADULT; DAY CENT DAY CENT PER 15 MINUTES DAY CARE S5100 [facility] 3 N ACTIVE N ACTIVE ADULT; DAY CENT DAY CENT PER 15 MINUTES DAY CARE S5100 [facility] 3 N ACTIVE N ACTIVE ADULT; DAY CENT DAY CENT PER 15 MINUTES DAY CARE S5100 [facility] 3 N ACTIVE N ACTIVE ADULT; DAY CENT DAY CENT PER 15 MINUTES DAY CARE S5100 [facility] 3 N ACTIVE N ACTIVE ADULT; DAY CENT DAY CENT PER 15 MINUTES DAY CARE S5100 [facility] 3 N ACTIVE N ACTIVE ADULT; DAY CENT DAY CENT PER 15 MINUTES DAY CARE S5100 [facility] 3 N ACTIVE N ACTIVE ADULT; DAY CENT DAY CENT PER 15 MINUTES DAY CARE S5100 [facility] 3 N ACTIVE N ACTIVE ADULT; DAY CENT DAY CENT PER 15 MINUTES NONEMERG A0120 LKLP CAC LKLP CAC TRNSPRT: 3 INC INC [place] 9 REGION 9 [facility] ARE[facility]/OTH SYS NONEMERG A0120 LKLP CAC LKLP CAC TRNSPRT: 3 INC INC [place] [facility] 9 REGION 9 [facility] ARE[facility]/OTH SYS DAY CARE S5100 [facility] 3 N ACTIVE N ACTIVE ADULT; DAY CENT DAY CENT PER [address] [facility] 3 GERALDO KIRILL METHYLPRE DNISOLONE PHYSICIAN ACETATE S [address] [facility] 3 GERALDO KIRILL PROPHYLAC TIC/DX PHYSICIAN INJECTION S SUBQ/IM DAY CARE S5100 [facility] 3 N ACTIVE N ACTIVE ADULT; DAY CENT DAY CENT PER 15 MINUTES DAY CARE S5100 [facility] 3 N ACTIVE N ACTIVE ADULT; DAY CENT DAY CENT PER 15 MINUTES OCCUPATIO 42800 [facility] NAL 3 N ACTIVE N ACTIVE THERAPY DAY CENT DAY CENT EVALUATIO N PHYSICAL 13783 [facility] THERAPY 3 N ACTIVE N ACTIVE EVALUATIO DAY CENT DAY CENT N DAY CARE S5100 [facility] 3 N ACTIVE N ACTIVE ADULT; DAY CENT DAY CENT PER 15 MINUTES DAY CARE S5100 [facility] 3 N ACTIVE N ACTIVE ADULT; DAY CENT DAY CENT PER 15 MINUTES DAY CARE S5100 [facility] 3 N ACTIVE N ACTIVE ADULT; DAY CENT DAY CENT PER 15 MINUTES DAY CARE S5100 [facility] 3 N ACTIVE N ACTIVE ADULT; DAY CENT DAY CENT PER 15 MINUTES DAY CARE S5100 [facility] 3 N ACTIVE N ACTIVE ADULT; DAY CENT DAY CENT PER 15 MINUTES DAY CARE S5100 [facility] 3 N ACTIVE N ACTIVE ADULT; DAY CENT DAY CENT PER 15 MINUTES DAY CARE S5100 [facility] 3 N ACTIVE N ACTIVE ADULT; DAY CENT DAY CENT PER 15 MINUTES DAY CARE S5100 [facility] 3 N ACTIVE N ACTIVE ADULT; DAY CENT DAY CENT PER 15 MINUTES NONEMERG A0120 LKLP CAC LKLP CAC TRNSPRT: 3 INC INC [place] REGION 9 REGION 9 [facility] AREA/OTH SYS INJECTION J0696 [facility] 3 Y Y CEFTRIAXO [facility] NE SODIUM PER [id number] [facility] Y Y ON HOSPITAL HOSPITAL SERVICE PER HOUR ECG 64615 [facility] ROUTINE 3 Y Y ECG HOSPITAL HOSPITAL W/LEAST 12 LDS TRCG ONLY W/O I&R ECG 35901 [facility] ROUTINE 3 MEDICAL NAN ECG SERV W/LEAST FOUNDATIO 12 LDS I&R ONLY INJECTION J0696 [facility] 3 Y Y CEFTRIAXO [facility] HOSPITAL NE SODIUM PER [address] IN[address] [facility] MORPHINE 3 Y Y SULFATE [facility] HOSPITAL UP TO [address] IN[address] [facility] 3 Y [facility] PER [address] [facility] ED/NONPRE 3 Y Y SSURIZED [facility] HOSPITAL INHALATIO N TREATMENT SBSQ 13422 [facility] 3 MEDICAL LALITA CARE/DAY SERV 25 FOUNDATIO MINUTES SBSQ 77432 [facility] 3 EMERGENCY III QUENTIN CARE/DAY SERVICES [address] [facility] ED/NONPRE 3 Y [facility] N TREATMENT BLOOD 38089 [facility] COUNT 3 Y Y HEMATOCRI [facility] T INITIAL 01638 [facility] 3 MEDICAL CARE/DAY SERV 50 FOUNDATIO [address] BLO[address] 99223 [facility] COUNT 3 Y Y COMPLETE [facility] [place] [address] [facility] TROPONIN 3 Y Y [facility] JOSE ALFREDO BLOOD 89542 [facility] COUNT 3 Y Y HEMOGLOBI [facility] N INJECTION J2405 [facility] 3 Y [facility] PER [address] IN[address] [facility] MORPHINE 3 Y Y SULFATE [facility] UP TO [address] IN[address] [facility] 3 Y Y CEFTRIAXO [facility] NE SODIUM PER 250 MG ECG 83900 [facility] ROUTINE 3 MEDICAL NAN ECG SERV W/LEAST FOUNDATIO 12 LDS I&R ONLY ECG 92651 [facility] ROUTINE 3 Y Y ECG [facility] W/LEAST 12 LDS TRCG ONLY W/O I&R CHROMATOG 51010 [facility] RADHA 3 Y Y [facility] 1 ANALYTE JAMILA COMPREHEN 19925 [facility] SIVE 3 Y Y [facility] PANEL LIPID 09993 [facility] PANEL 3 Y Y [facility] MASS 38068 [facility] SPECT&DAVILA 3 Y Y DEM [facility] SPECT NONDRG ANAL JAMILA EA RADIOLOGI 04963 [facility] BELKYS JAM C 3 MEDICAL EXAMINATI SERV ON CHEST FOUNDATIO SINGLE VIEW FRONTAL URNLS DIP 31265 [facility] 3 Y Y STICK/TAB [facility] HOSPITAL LET RGNT AUTO W/[place] [address] [facility] FOLIC 3 Y Y ACID RBC [facility]OSPITAL HOSPITAL ECG 69719 [facility] ROUTINE 3 Y Y ECG HOSPITAL HOSPITAL W/LEAST 12 LDS TRCG ONLY W/O I&R CYANOCOBA 98869 [facility] JUN 3 Y [facility] B-[place] [address] [facility] MAGNESIUM 3 Y Y HOSPITAL HOSPITAL ECG 59936 [facility] CRISTINA [facility] ROUTINE 3 MEDICAL ECG SERV W/LEAST FOUNDATIO 12 LDS I&R ONLY NATRIURET 84831 [facility] IC 3 Y Y [facility] IRON 90416 [facility] BINDING 3 Y Y CAPACITY [facility] HEMOGLOBI 66982 [facility] N 3 Y Y GLYCOSYLA [facility] KURT A1C INJECTION J2270 [facility] MORPHINE 3 Y Y SULFATE [facility] UP TO 10 MG INITIAL 05062 [facility] 3 EMERGENCY CARE/DAY SERVICES [address] [place] [address] [facility] PHOSPHORU 3 Y Y S HOSPITAL [facility] INORGANIC PROTHROMB 71936 [facility] IN TIME 3 [place] [address] [facility] TROPONIN 3 Y Y QUANTITAT [facility] [place] [address] [facility] FREE 3 Y Y THYROXINE [facility] BLOOD 47123 [facility] COUNT 3 Y Y COMPLETE [facility] HOSPITAL AUTO&AUTO DIFRNTL WBC INITIAL 33347 [facility] 3 MEDICAL CARE/DAY SERV [place] [address] [facility] THYROID 3 Y Y STIMULATI [facility] NG HORMONE TSH THROMBOPL 05811 [facility] ASTIN 3 Y Y TIME HOSPITAL HOSPITAL PARTIAL PLASMA/WH OLE BLOOD BASIC 70252 [facility] METABOLIC 3 Y Y PANEL HOSPITAL [facility] CALCIUM TOTAL EXTERNAL 23880 [facility] ECG 3 Y Y [facility]OSPITAL ANALYSIS REPORT XTRNL ECG 37426 [facility] & 48 HR 3 Y Y RECORDING [facility] HOSPITAL XTRNL ECG 09953 [facility]O [facility] 3 MEDICAL CONTINUOU SERV S RHYTHM FOUNDATIO W/I&R UP TO 48 HRS DAY CARE S5100 [facility] 3 N ACTIVE N ACTIVE ADULT; DAY CENT DAY CENT PER 15 MINUTES DAY CARE S5100 [facility] 3 N ACTIVE N ACTIVE ADULT; DAY CENT DAY CENT PER 15 MINUTES OCCUPATIO 33917 [facility] NAL 3 N ACTIVE N ACTIVE THERAPY DAY CENT DAY CENT EVALUATIO N PHYSICAL 30046 [facility] THERAPY 3 N ACTIVE N ACTIVE EVALUATIO DAY CENT DAY CENT N DAY CARE S5100 [facility] 3 N ACTIVE N ACTIVE ADULT; DAY CENT DAY CENT PER 15 MINUTES DAY CARE S5100 [facility] 3 N ACTIVE N ACTIVE ADULT; DAY CENT DAY CENT PER [address] [facility] 300-399 3 Y Y MG/ML HOSPITAL HOSPITAL IODINE CONCENTRA TION PER ML RADIOLOGI 44644 [facility] C 3 Y [facility] CHEST SINGLE VIEW FRONTAL ECG 12077 [facility] ROUTINE 3 Y Y ECG [facility] W/LEAST 12 LDS TRCG ONLY W/O I&[place] [address] [facility] JAN ANGIOGRAP 3 MEDICAL BAR HY CHEST SERV W/CONTRAS FOUNDATIO T/NONCONT RAST ECG 12210 [facility] ROUTINE 3 MEDICAL NAN ECG SERV W/LEAST FOUNDATIO 12 LDS I&R ONLY PROTHROMB 40065 [facility] IN TIME 3 Y Y [facility] HOSPITAL CT ANGIO 58998 [facility] JAN ABD&PLVIS 3 MEDICAL BAR CNTRST SERV MTRL W/WO FOUNDATIO CNTRST IMG INJ J2930 [facility] METHYLPRD 3 Y [facility] SU[facility]NAT TO 125 MG GROUND A0425 [facility] MILEAGE 3 Fausto-ASHISH Lambert-ASHISH PER CO EMS CO EMS STATUTE MILE THERAPEUT 96395 [facility] IC 3 Y Y INJECTION [facility] [place] [address] [facility] INFUSION 3 Y Y THERAPY/P [facility] ROPHYLAXI S /DX 1ST TO [address] B[address] [facility] COUNT 3 Y Y [facility] [address] [facility] TROPONIN [facility] Y Y [facility] ALFREDO BASIC 38969 [facility] METABOLIC 3 Y Y [facility] CALCIUM TOTAL AMB A0422 [facility] OXYGEN&O2 3 Fausto-ASHISH AMADOR SUPPLIES CO EMS CO EMS LIFE SUSTAININ G SITUATION AMB A0427 [facility] 3 N-ASHISH Lambert-ASHISH ALS CO EMS CO EMS EMERGENCY TRANSPORT LEVEL [address] [facility] 3 Y Y [facility] RAMINE [facility]CL UP TO 50 MG PHYSICAL [id number] [facility] 3 N ACTIVE N ACTIVE EVALUATIO DAY CENT DAY CENT N DAY CARE S5100 [facility] 3 N ACTIVE N ACTIVE ADULT; DAY CENT DAY CENT PER 15 MINUTES DAY CARE S5100 [facility] 3 N ACTIVE N ACTIVE ADULT; DAY CENT DAY CENT PER 15 MINUTES OCCUPATIO [id number] [facility] 3 N ACTIVE N ACTIVE THERAPY DAY CENT DAY CENT EVALUATIO N DAY CARE S5100 [facility] 3 N ACTIVE N ACTIVE ADULT; DAY CENT DAY CENT PER 15 MINUTES DAY CARE S5100 [facility] 3 N ACTIVE N ACTIVE ADULT; DAY CENT DAY CENT PER 15 MINUTES DAY CARE S5100 [facility] 3 N ACTIVE N ACTIVE ADULT; DAY CENT DAY CENT PER 15 MINUTES PHYSICAL [id number] [facility] 3 N ACTIVE N ACTIVE EVALUATIO DAY CENT DAY CENT N DAY CARE S5100 [facility] 3 N ACTIVE N ACTIVE ADULT; DAY CENT DAY CENT PER 15 MINUTES DAY CARE S5100 [facility] 3 N ACTIVE N ACTIVE ADULT; DAY CENT DAY CENT PER 15 MINUTES DAY CARE S5100 [facility] 3 N ACTIVE N ACTIVE ADULT; DAY CENT DAY CENT PER 15 MINUTES DAY CARE S5100 [facility] 3 N ACTIVE N ACTIVE ADULT; DAY CENT DAY CENT PER 15 MINUTES OCCUPATIO [id number] [facility] 3 N ACTIVE N ACTIVE THERAPY DAY CENT DAY CENT EVALUATIO N PHYSICAL [id number] [facility] 3 N ACTIVE N ACTIVE EVALUATIO DAY CENT DAY CENT N DAY CARE S5100 [facility] 3 N ACTIVE N ACTIVE ADULT; DAY CENT DAY CENT PER 15 MINUTES DAY CARE S5100 [facility] 3 N ACTIVE N ACTIVE ADULT; DAY CENT DAY CENT PER 15 MINUTES DAY CARE S5100 [facility] 3 N ACTIVE N ACTIVE ADULT; DAY CENT DAY CENT PER 15 MINUTES OCCUPATIO [id number] [facility] 3 N ACTIVE N ACTIVE THERAPY DAY CENT DAY CENT EVALUATIO N DAY CARE S5100 [facility] 3 N ACTIVE N ACTIVE ADULT; DAY CENT DAY CENT PER 15 MINUTES DAY CARE S5100 [facility] 3 N ACTIVE N ACTIVE ADULT; DAY CENT DAY CENT PER 15 MINUTES DAY CARE S5100 [facility] 3 N ACTIVE N ACTIVE ADULT; DAY CENT DAY CENT PER 15 MINUTES OCCUPATIO [id number] [facility] 3 N ACTIVE N ACTIVE THERAPY DAY CENT DAY CENT EVALUATIO N PHYSICAL [id number] [facility] 3 N ACTIVE N ACTIVE EVALUATIO DAY CENT DAY CENT N DAY CARE S5100 [facility] 3 N ACTIVE N ACTIVE ADULT; DAY CENT DAY CENT PER 15 MINUTES DAY CARE S5100 [facility] 3 N ACTIVE N ACTIVE ADULT; DAY CENT DAY CENT PER 15 MINUTES OCCUPATIO [id number] [facility] 3 N ACTIVE N ACTIVE THERAPY DAY CENT DAY CENT EVALUATIO N PHYSICAL [id number] [facility] 3 N ACTIVE N ACTIVE EVALUATIO DAY CENT DAY CENT N DAY CARE S5100 [facility] 3 N ACTIVE N ACTIVE ADULT; DAY CENT DAY CENT PER 15 MINUTES DAY CARE S5100 [facility] 3 N ACTIVE N ACTIVE ADULT; DAY CENT DAY CENT PER 15 MINUTES DAY CARE S5100 [facility] 3 N ACTIVE N ACTIVE ADULT; DAY CENT DAY CENT PER 15 MINUTES DAY CARE S5100 [facility] 3 N ACTIVE N ACTIVE ADULT; DAY CENT DAY CENT PER 15 MINUTES DAY CARE S5100 [facility] 3 N ACTIVE N ACTIVE ADULT; DAY CENT DAY CENT PER 15 MINUTES PHYSICAL [id number] [facility] 3 N ACTIVE N ACTIVE EVALUATIO DAY CENT DAY CENT N OCCUPATIO [id number] [facility] NAL 3 N ACTIVE N ACTIVE THERAPY DAY CENT DAY CENT EVALUATIO N DAY CARE S5100 [facility] [facility] 3 N ACTIVE N ACTIVE ADULT; DAY CENT DAY CENT PER 15 MINUTES DAY CARE S5100 [facility] 3 N ACTIVE N ACTIVE ADULT; DAY CENT DAY CENT PER 15 MINUTES OCCUPATIO 01743 [facility] 3 N ACTIVE N ACTIVE THERAPY DAY CENT DAY CENT EVALUATIO N DAY CARE S5100 [facility] 3 N ACTIVE N ACTIVE ADULT; DAY CENT DAY CENT PER 15 MINUTES DAY CARE S5100 [facility] 3 N ACTIVE N ACTIVE ADULT; DAY CENT [place] [address] [place] [address] RADIOLOGY ADAMARIS HEAD/BRAI 3 III BRAYAN N W/O ASSOCIATE CONTRAST S [place] [address] [place] [address] [address] [facility] [address] [facility] W/VC 3 [facility] EXPIRATOR SERV Y KARINE FOUNDATIO W/[place] [address] [facility] DIFFUSING 3 [facility]ITY [facility] [address] [place] DIS[place]GE 3 MEDICAL ALI DAY SERV MANAGEMEN FOUNDATIO T 30 MIN/< BASIC 28312 [facility] METABOLIC 3 Y Y PANEL [facility] CALCIUM TOTAL PLETHYSMO 25572 [facility] GRAPHY 3 [facility] LUNG SERV VOLUMES FOUNDATIO W/WO AIRWAY RESIST BASIC 58380 [facility] METABOLIC 3 Y Y PANEL [facility] CALCIUM TOTAL RADIOLOGI 05243 [facility] C 3 [facility] SINGLE VIEW FRONTAL CULTURE 89286 [facility] BACTERIAL 3 Y Y BLOOD [facility] AEROBIC W/[place] [address] [facility] MULT STEP 3 Y Y METHOD [facility] NOS EACH ORGANISM SBSQ 73133 [facility] 3 MEDICAL ALI CARE/DAY SERV [place] [address] [facility] TROPONIN 3 Y Y [facility] JOSE ALFREDO BLOOD 45558 [facility] COUNT 3 Y Y COMPLETE [facility] AUTO&AUTO DIFRNTL WBC PROTHROMB 33744 [facility] IN TIME 3 Y Y [facility] ECG 55204 [facility] ROUTINE 3 Y Y ECG [facility] W/LEAST 12 LDS TRCG ONLY W/O I&R ECHO 22966 [facility] TTC R-T 3 Y Y 2D [facility] W/WOM-MOD E COMPL SPEC&[place] [address] [facility] MAGNESIUM 3 Y Y HOSPITAL [facility] URNLS DIP [address] [facility] UNIVERS 3 Y Y STICK/TAB [facility] LET RGNT AUTO W/O MICROSCOP Y INITIAL 00484 [facility] 3 MEDICAL ALI CARE/DAY SERV 70 FOUNDATIO [address] B[address]37 [facility] COUNT 3 Y Y COMPLETE [facility] AUTO&[place] [address] [facility] TROPONIN 3 Y Y QUANTITAT [facility] [place] [address] [facility] THYROID 3 Y Y STIMULATI [facility] [address] [facility] TROPONIN 3 Y Y QUANTITAT [facility] JOSE ALFREDO BLOOD 01275 NEW NEW COUNT 3 [facility] COMPLETE MED CTR MED CTR AUTO&AUTO DIFRNTL WBC COLLECTIO 27193 NEW NEW N VENOUS 3 [facility] BLOOD MED CTR MED CTR VENIPUNCT URE BLOOD 49315 [facility] COUNT 3 Y Y COMPLETE [facility] AUTOMATED THER 24993 NEW NEW PROPH/DX 3 [facility] NJX IV MED CTR MED CTR PUSH SINGLE/1S T SBST/DRUG PROTHROMB 43883 NEW NEW IN TIME 3 [facility] MED CTR CT ANGIO 06013 MAR[facility] MALHOTRA ABD&PLVIS 3 MEDICAL ALAYNA CNTRST SERV MTRL W/WO FOUNDATIO CNTRST IMG FIBRIN 40116 NEW NEW DGRADJ 3 [facility] SPLT MED CTR MED CTR PRODUCTS QUANTITAT JOSE ALFREDO ECG 60097 [facility] ROUTINE 3 Y Y ECG [facility] W/LEAST 12 LDS TRCG ONLY W/O I&R ROTARY A0436 PHI AIR PHI AIR WING AIR 3 MEDICAL MEDICAL MILEAGE PER STATUTE MILE COMPREHEN 74612 [facility] SIVE 3 Y Y METABOLIC [facility] [place] [address] MARLON MALHOTRA ANGIOGRAP 3 MEDICAL ALAYNA HY CHEST SERV W/CONTRAS [place] [address] [facility] LIPASE 3 Y Y HOSPITAL HOSPITAL CREATINE 43267 NEW NEW KINASE 3 [facility] TOTAL MED CTR MED CTR ECG 43381 [place] ROUTINE 3 MEDICAL NAN ECG SERV W/LEAST FOUNDATIO 12 LDS I&R ONLY LACTATE 10077 [facility] DEHYDROGE 3 Y Y NASE LDH [facility] RADIOLOGI 63871 [facility] C 3 Y Y EXAMINATI [facility] ON CHEST SINGLE VIEW FRONTAL AMB A0431 PHI AIR PHI AIR SERVICE 3 MEDICAL MEDICAL CONVNTION AIR SRVC TRANSPORT [address] BLOOD 77402 NEW NEW COUNT 3 [facility] SMEAR MED CTR MED CTR MCRSCP W/MNL DIFRNTL WBC COUNT THROMBOPL 00321 [facility] 3 Y Y TIME [facility] PARTIAL PLASMA/WH OLE BLOOD DAY CARE S5100 [facility] 3 N ACTIVE N ACTIVE ADULT; DAY CENT DAY CENT PER 15 MINUTES OCCUPATIO 04801 [facility] 3 N ACTIVE N ACTIVE THERAPY DAY CENT DAY CENT EVALUATIO N DAY CARE S5100 [facility] 3 N ACTIVE N ACTIVE ADULT; DAY CENT DAY CENT PER 15 MINUTES DAY CARE S5100 [facility] 3 N ACTIVE N ACTIVE ADULT; DAY CENT DAY CENT PER 15 MINUTES DAY CARE S5100 [facility] 3 N ACTIVE N ACTIVE ADULT; DAY CENT DAY CENT PER 15 MINUTES ECHO 81635 [facility] R-T 3 MEDICAL LALITA 2D SERV W/WOM-MOD FOUNDATIO E COMPL SPEC&COLR D DAY CARE S5100 [facility] 3 N ACTIVE N ACTIVE ADULT; DAY CENT DAY CENT PER 15 MINUTES OCCUPATIO 07398 [facility] 3 N ACTIVE N ACTIVE THERAPY DAY CENT DAY CENT EVALUATIO N OCCUPATIO 54453 [facility] 3 N ACTIVE N ACTIVE THERAPY DAY CENT DAY CENT EVALUATIO N DAY CARE S5100 [facility] 3 N ACTIVE N ACTIVE ADULT; DAY CENT DAY CENT PER 15 MINUTES DAY CARE S5100 [facility] 3 N ACTIVE N ACTIVE ADULT; DAY CENT DAY CENT PER 15 MINUTES DAY CARE S5100 [facility] 3 N ACTIVE N ACTIVE ADULT; DAY CENT DAY CENT PER 15 MINUTES DAY CARE S5100 [facility] 3 N ACTIVE N ACTIVE ADULT; DAY CENT DAY CENT PER 15 MINUTES DAY CARE S5100 [facility] 3 N ACTIVE N ACTIVE ADULT; DAY CENT DAY CENT PER 15 MINUTES PHYSICAL 13289 [facility] 3 N ACTIVE N ACTIVE EVALUATIO DAY CENT DAY CENT N DAY CARE S5100 [facility] 3 N ACTIVE N ACTIVE ADULT; DAY CENT DAY CENT PER 15 MINUTES DAY CARE S5100 [facility] 3 N ACTIVE N ACTIVE ADULT; DAY CENT DAY CENT PER 15 MINUTES DAY CARE S5100 [facility] 3 N ACTIVE N ACTIVE ADULT; DAY CENT DAY CENT PER 15 MINUTES DAY CARE S5100 [facility] 3 N ACTIVE N ACTIVE ADULT; DAY CENT DAY CENT PER 15 MINUTES DAY CARE S5100 [facility] 3 N ACTIVE N ACTIVE ADULT; DAY CENT DAY CENT PER 15 MINUTES OCCUPATIO 94107 [facility] 3 N ACTIVE N ACTIVE THERAPY DAY CENT DAY CENT EVALUATIO N DAY CARE S5100 [facility] 3 N ACTIVE N ACTIVE ADULT; DAY CENT DAY CENT PER 15 MINUTES DAY CARE S5100 [facility] 3 N ACTIVE N ACTIVE ADULT; DAY CENT DAY CENT PER 15 MINUTES DAY CARE S5100 [facility] 3 N ACTIVE N ACTIVE ADULT; DAY CENT DAY CENT PER 15 MINUTES DAY CARE S5100 [facility] 3 N ACTIVE N ACTIVE ADULT; DAY CENT DAY CENT PER 15 MINUTES DAY CARE S5100 [facility] 3 N ACTIVE N ACTIVE ADULT; DAY CENT DAY CENT PER 15 MINUTES DAY CARE S5100 [facility] 3 N ACTIVE N ACTIVE ADULT; DAY CENT DAY CENT PER 15 MINUTES DAY CARE S5100 [facility] 3 N ACTIVE N ACTIVE ADULT; DAY CENT DAY CENT PER 15 MINUTES DAY CARE S5100 [facility] 3 N ACTIVE N ACTIVE ADULT; DAY CENT DAY CENT PER 15 MINUTES DAY CARE S5100 [facility] 3 N ACTIVE N ACTIVE ADULT; DAY CENT DAY CENT PER 15 MINUTES DAY CARE S5100 [facility] 3 N ACTIVE N ACTIVE ADULT; DAY CENT DAY CENT PER 15 MINUTES DAY CARE S5100 [facility] 3 N ACTIVE N ACTIVE ADULT; DAY CENT DAY CENT PER 15 MINUTES DAY CARE S5100 [facility] 3 N ACTIVE N ACTIVE ADULT; DAY CENT DAY CENT PER [address] [place] [place] [address] JACQUELINE ROUTINE 3 MEDICAL ECG SERV W/LEAST FOUNDATIO 12 LDS I&R ONLY CREATINE 63101 [facility] KINASE 3 Y Y TOTAL [facility] LIPID 71485 [facility] PANEL [facility] Y Y [facility] COMPREHEN 53785 [facility] SIVE 3 Y Y METABOLIC [facility] [place] [address] [facility] THYROID 3 Y Y STIMULATI [facility] NG HORMONE TSH BLOOD 93021 [facility] COUNT 3 Y Y [facility] [place] [address] [facility] FREE 3 Y Y THYROXINE [facility] [address] [facility] ROUTINE 3 Y Y ECG [facility] W/LEAST 12 LDS TRCG ONLY W/O I&R DAY CARE S5100 [facility] 3 N ACTIVE N ACTIVE ADULT; DAY CENT DAY CENT PER 15 MINUTES DAY CARE S5100 [facility] 3 N ACTIVE N ACTIVE ADULT; DAY CENT DAY CENT PER 15 MINUTES DAY CARE S5100 [facility] 3 N ACTIVE N ACTIVE ADULT; DAY CENT DAY CENT PER 15 MINUTES DAY CARE S5100 [facility] 3 N ACTIVE N ACTIVE ADULT; DAY CENT DAY CENT PER 15 MINUTES DAY CARE S5100 [facility] 3 N ACTIVE N ACTIVE ADULT; DAY CENT DAY CENT PER 15 MINUTES DAY CARE S5100 [facility] 3 N ACTIVE N ACTIVE ADULT; DAY CENT DAY CENT PER 15 MINUTES DAY CARE S5100 [facility] 3 N ACTIVE N ACTIVE ADULT; DAY CENT DAY CENT PER 15 MINUTES DAY CARE S5100 [facility] 3 N ACTIVE N ACTIVE ADULT; DAY CENT DAY CENT PER [address] SIVE 3 [facility] METABOLIC [facility] PANEL CENTER CENTER LIPID [address]3342 ST PANEL 3 [facility] CENTER COLLECTIO [address] ST THRELKELD N VENOUS 3 [facility] BLOOD VENIPUNCT PHYSICIAN URE S BLOOD [address] COUNT [address] [facility] AUTO&AUTO [facility] [place] [address] [facility] THYROID 3 [facility] HORMONE TSH DAY CARE S5100 [facility] 3 N ACTIVE N ACTIVE ADULT; DAY CENT DAY CENT PER 15 MINUTES DAY CARE S5100 [facility] 3 N ACTIVE N ACTIVE ADULT; DAY CENT DAY CENT PER 15 MINUTES DAY CARE S5100 [facility] 3 N ACTIVE N ACTIVE ADULT; DAY CENT DAY CENT PER 15 MINUTES DAY CARE S5100 [facility] 3 N ACTIVE N ACTIVE ADULT; DAY CENT DAY CENT PER 15 MINUTES DAY CARE S5100 [facility] 3 N ACTIVE N ACTIVE ADULT; DAY CENT DAY CENT PER 15 MINUTES DAY CARE S5100 [facility] 3 N ACTIVE N ACTIVE ADULT; DAY CENT DAY CENT PER 15 MINUTES DAY CARE S5100 [facility] 3 N ACTIVE N ACTIVE ADULT; DAY CENT DAY CENT PER 15 MINUTES DAY CARE S5100 [facility] 3 N ACTIVE N ACTIVE ADULT; DAY CENT DAY CENT PER 15 MINUTES DAY CARE S5100 [facility] 3 N ACTIVE N ACTIVE ADULT; DAY CENT DAY CENT PER 15 MINUTES DAY CARE S5100 [facility] 3 N ACTIVE N ACTIVE ADULT; DAY CENT DAY CENT PER 15 MINUTES DAY CARE S5100 [facility] 3 N ACTIVE N ACTIVE ADULT; DAY CENT DAY CENT PER 15 MINUTES DAY CARE S5100 [facility] 3 N ACTIVE N ACTIVE ADULT; DAY CENT DAY CENT PER 15 MINUTES DAY CARE S5100 [facility] 3 N ACTIVE N ACTIVE ADULT; DAY CENT DAY CENT PER 15 MINUTES DAY CARE S5100 [facility] 3 N ACTIVE N ACTIVE ADULT; DAY CENT DAY CENT PER 15 MINUTES DAY CARE S5100 [facility] 3 N ACTIVE N ACTIVE ADULT; DAY CENT DAY CENT PER 15 MINUTES DAY CARE S5100 [facility] 3 N ACTIVE N ACTIVE ADULT; DAY CENT DAY CENT PER 15 MINUTES DAY CARE S5100 [facility] 3 N ACTIVE N ACTIVE ADULT; DAY CENT DAY CENT PER 15 MINUTES DAY CARE S5100 [facility] 3 N ACTIVE N ACTIVE ADULT; DAY CENT DAY CENT PER 15 MINUTES DAY CARE S5100 [facility] 3 N ACTIVE N ACTIVE ADULT; DAY CENT DAY CENT PER 15 MINUTES DAY CARE S5100 [facility] 3 N ACTIVE N ACTIVE ADULT; DAY CENT DAY CENT PER 15 MINUTES DAY CARE S5100 [facility] 3 N ACTIVE N ACTIVE ADULT; DAY CENT DAY CENT PER 15 MINUTES DAY CARE S5100 [facility] 3 N ACTIVE N ACTIVE ADULT; DAY CENT DAY CENT PER 15 MINUTES DAY CARE S5100 [facility] 3 N ACTIVE N ACTIVE ADULT; DAY CENT DAY CENT PER 15 MIN[place] [address] JACQUELINE ROUTINE 3 MEDICAL ECG SERV W/LEAST FOUNDATIO 12 LDS [place] [address] [facility] INFUSION 3 Y Y HYDRATION [facility] EACH ADDITIONA L HOUR BLOOD 08813 [facility] COUNT 3 Y Y COMPLETE [facility] [place] [address] [facility] TROPONIN 3 Y Y QUANTITAT [facility] JOSE ALFREDO ECG 39319 [facility] ROUTINE 3 Y Y ECG [facility] W/LEAST 12 LDS TRCG ONLY W/O I&R GROUND A0425 [facility] MILEAGE 3 N-ASHISH N-ASHISH PER CO EMS CO EMS STATUTE MILE INJECTION J2405 [facility] 3 Y Y [facility] ON HCL PER [address] [facility] PROPH/DX 3 Y Y NJX IV [facility] PUSH SINGLE/1S T SBST/DRUG PROTHROMB 40279 [facility] IN TIME 3 Y Y [facility] THROMBOPL 64592 [facility] ASTIN 3 Y Y TIME [facility] PARTIAL PLASMA/WH OLE BLOOD AMB A0422 [facility] OXYGEN&O2 3 PERRY AMADOR SUPPLIES CO EMS CO EMS LIFE SUSTAININ G SITUATION RADIOLOGI 51772 [place] [facility] C 3 MEDICAL GAR EXAMINATI SERV ON CHEST FOUNDATIO SINGLE VIEW FRONTAL BASIC 99305 [facility] METABOLIC 3 Y Y PANEL [facility] CALCIUM TOTAL INFUSION J7030 [facility] NORMAL 3 Y Y SALINE [facility] SOLUTION 1000 CC AMB A0427 [facility] SERVICE 3 PERRY AMADOR ALS CO EMS CO EMS EMERGENCY TRANSPORT LEVEL 1 DAY CARE S5100 [facility] 3 N ACTIVE N ACTIVE ADULT; DAY CENT DAY CENT PER 15 MINUTES DAY CARE S5100 [facility] 3 N ACTIVE N ACTIVE ADULT; DAY CENT DAY CENT PER 15 MINUTES DAY CARE S5100 [facility] 3 N ACTIVE N ACTIVE ADULT; DAY CENT DAY CENT PER 15 MINUTES DAY CARE S5100 [facility] 3 N ACTIVE N ACTIVE ADULT; DAY CENT DAY CENT PER 15 MINUTES DAY CARE S5100 [facility] 3 N ACTIVE N ACTIVE ADULT; DAY CENT DAY CENT PER 15 MINUTES DAY CARE S5100 [facility] 3 N ACTIVE N ACTIVE ADULT; DAY CENT DAY CENT PER 15 MINUTES DAY CARE S5100 [facility] 3 N ACTIVE N ACTIVE ADULT; DAY CENT DAY CENT PER 15 MINUTES DAY CARE S5100 [facility] 3 N ACTIVE N ACTIVE ADULT; DAY CENT DAY CENT PER 15 MINUTES DAY CARE S5100 [facility] 3 N ACTIVE N ACTIVE ADULT; DAY CENT DAY CENT PER 15 MINUTES DAY CARE S5100 [facility] 3 N ACTIVE N ACTIVE ADULT; DAY CENT DAY CENT PER 15 MINUTES DAY CARE S5100 [facility] 3 N ACTIVE N ACTIVE ADULT; DAY CENT DAY CENT PER 15 MINUTES DAY CARE S5100 [facility] 3 N ACTIVE N ACTIVE ADULT; DAY CENT DAY CENT PER 15 MINUTES DAY CARE S5100 [facility] 3 N ACTIVE N ACTIVE ADULT; DAY CENT DAY CENT PER 15 MINUTES DAY CARE S5100 [facility] 3 N ACTIVE N ACTIVE ADULT; DAY CENT DAY CENT PER 15 MINUTES DAY CARE S5100 [facility] 3 N ACTIVE N ACTIVE ADULT; DAY CENT DAY CENT PER 15 MINUTES DAY CARE S5100 [facility] 3 N ACTIVE N ACTIVE ADULT; DAY CENT DAY CENT PER 15 MINUTES RADEX 30240 [facility] SPINE 3 [facility] LUMBOSACR ADDIE ADDIE AL 2/[address] [place] [address] RADIOLOGY [place] ABDOMEN & 3 [facility] PELVIS ASSOCIATE W/O S [facility] CONTRAST MATERIAL COLLECTIO 65261 [facility] V[facility] 3 [facility] BLOOD VENIPUNCT PHYSICIAN URE S BLOOD [address] COUNT 3 [facility] COMPLETE MEDICAL MEDICAL AUTOMATED CENTER CENTER COMPREHEN 70551 ST SIVE 3 [facility] METABOLIC MEDICAL MEDICAL PANEL CENTER CENTER URNLS DIP [address] STICK/TAB LET RGNT PHYSICIAN NON-AUTO S W/O MICRSCP DAY CARE S5100 [facility] 3 N ACTIVE N ACTIVE ADULT; DAY CENT DAY CENT PER 15 MINUTES DAY CARE S5100 [facility] 3 N ACTIVE N ACTIVE ADULT; DAY CENT DAY CENT PER 15 MINUTES DAY CARE S5100 [facility] 3 N ACTIVE N ACTIVE ADULT; DAY CENT DAY CENT PER 15 MINUTES DAY CARE S5100 [facility] 3 N ACTIVE N ACTIVE ADULT; DAY CENT DAY CENT PER [address] [facility] IC 3 GERALDO KIRILL PROPHYLAC TIC/DX PHYSICIAN INJECTION S SUBQ/IM INJECTION J1040 [facility] 3 GERALDO KIRILL METHYLPRE DNISOLONE PHYSICIAN ACETATE S 80 MG DAY CARE S5100 [facility] 3 N ACTIVE N ACTIVE ADULT; DAY CENT DAY CENT PER 15 MINUTES DAY CARE S5100 [facility] 3 N ACTIVE N ACTIVE ADULT; DAY CENT DAY CENT PER [address] [place] 3 GERALDO II [place] STICK/TAB LET RGNT PHYSICIAN NON-AUTO S W/O MICRSCP DAY CARE S5100 [facility] 3 N ACTIVE N ACTIVE ADULT; DAY CENT DAY CENT PER 15 MINUTES DAY CARE S5100 [facility] 3 N ACTIVE N ACTIVE ADULT; DAY CENT DAY CENT PER [address] [place] 3 GERALDO II [place] STICK/TAB LET RGNT PHYSICIAN NON-AUTO S W/O MICRSCP COMPREHEN 52051 [facility] SIVE 3 [facility] METABOLIC MEDICAL MEDICAL PANEL CENTER CENTER BLOOD 54690 [facility] COUNT [address] [facility] MEDICAL AUTO&AUTO CENTER CENTER DIFRNTL WBC COLLECTIO 42861 [facility] V[facility]OUS 3 GERALDO II [place] BLOOD [place] [address] [facility] THYROID 3 [facility] STIMULATI [facility] CENTER HORMONE TSH CULTURE 81946 [facility] BACTERIAL 3 [facility] QUANTTATI CENTER CENTER VE COLONY COUNT URINE DAY CARE S5100 [facility] 3 N ACTIVE N ACTIVE ADULT; DAY CENT DAY CENT PER 15 MINUTES PRTBLE E0431 JANAE CARDOSO GASEOUS 3 HOME HOME O2 SYS MEDICAL MEDICAL RENT; EQUIPME EQUIPME FLWMTR HUMIDFR&M ASK O2 CONC 1 [id number] JANAE CARDOSO [place] 3 HOME HOME 85%/>02 MEDICAL MEDICAL CONC AT EQUIPME EQUIPME PRSC FLW RATE CULTURE [address] BACTERIAL 3 GERALDO GERALDO QUANTTATI MEDICALCE MEDICALCE VE COLONY NTER NTER COUNT URINE POLYSOM 47470 SUSAN DAVIS 6/>YRS 3 [facility] SLEEP INC INC W/CPAP 4/> ADDL [facility] 28215 [facility] GERALDO STICK/TAB LET RGNT PHYSICIAN NON-AUTO S W/O MICRSCP DAY CARE S5100 [facility] 3 N ACTIVE N ACTIVE ADULT; DAY CENT DAY CENT PER 15 MINUTES DAY CARE S5100 [facility] 3 N ACTIVE N ACTIVE ADULT; DAY CENT DAY CENT PER 15 MINUTES DAY CARE S5100 [facility] 3 N ACTIVE N ACTIVE ADULT; DAY CENT DAY CENT [place] [address] [place] [address] [facility] MAGNESIUM 3 Y Y [facility] BASIC [address]017 [facility] METABOLIC 3 Y Y PANEL [facility] [address] [facility] DISCHAR[facility] 3 Y OF [facility] INTER T 30 MIN/< BASIC 96018 [facility] METABOLIC 3 Y Y [facility] CALCIUM TOTAL SBSQ 63506 [facility] 3 Y OF JR DON CARE/DAY [facility] [address] [place] [address] [facility] OSMOLALIT 3 Y Y Y URINE [facility] CREATININ [address]37 [facility] E OTHER 3 Y Y SOURCE [facility] URNLS DIP 60751 [facility] UNIVERS 3 Y Y STICK/TAB [facility] [place] [address] [facility] UR[facility] 3 Y Y SODIUM [facility] BLOOD 33542 [facility] COUNT 3 Y Y COMPLETE [facility] AUTOMATED [facility]LOOD 92178 [facility] COUNT 3 Y Y [facility] AUTOM[facility] [place] [address]70 [facility] TEST 3 Y Y NON-TREPO HOSPITAL HOSPITAL NEMAL ANTIBODY QUAL PROTHROMB 20069 [facility] IN TIME 3 Y Y HOSPITAL HOSPITAL ECG 70355 [facility] ROUTINE 3 Y Y ECG [facility] W/LEAST 12 LDS TRCG ONLY W/O I&R ECHO 97857 [facility] TTHRC R-T 3 Y Y 2D [facility] W/WOM-MOD E COMPL SPEC&COLR D DUPLEX 44508 [facility] SCAN 3 Y Y EXTRACRAN [facility] IAL ART COMPL BI STUDY SBSQ 66092 [facility] 3 MEDICAL CARE/DAY SERV 25 FOUNDATIO MINUTES ANTINUCLE 54791 [facility] 3 Y Y ANTIBODIE [facility] S LACEY BASIC 49935 [facility] CENTER 3 Y Y [facility] CALCIUM TOTAL BASIC 58851 [facility] 3 Y Y [facility] CALCIUM TOTAL RADIOLOGI 94650 [facility] C 3 Y [facility] SINGLE VIEW FRONTAL THROMBOPL 60644 [facility] ASTIN 3 Y Y TIME [facility] PARTIAL PLASMA/WH OLE BLOOD INITIAL 51619 [facility] 3 MEDICAL LACEY CARE/DAY SERV 30 FOUNDATIO MINUTES AMB A0427 [facility] SERVICE 3 PERRY AMADOR ALS CO EMS CO EMS EMERGENCY TRANSPORT LEVEL 1 DUPLEX 70419 OR [place] SCAN 3 MEDICAL REGLA EXTRACRAN SERV IAL ART FOUNDATIO COMPL BI STUDY LOCM Q9967 [facility] [phone] Y Y MG/ML [facility] IODINE [place] [address] [facility] FOLIC 3 Y Y ACID [facility] [place] [address] [facility] ANGIOGRAP 3 Y Y HY [facility] W/CONTRAS T/NONCONT RAST LIPID 78740 [facility] PANEL 3 Y [place] [facility] [place] [address] [facility] HEAD/BRAI 3 Y Y N W/O [facility] CONTRAST MATERIAL CYANOCOBA 70024 [facility] JUN 3 Y Y VITAMIN [facility] B-12 ECG 30009 [facility] CRISTINA [facility] ROUTINE 3 MEDICAL ECG SERV W/LEAST FOUNDATIO 12 LDS I&R ONLY DAY CARE S5100 [facility] 3 N ACTIVE N ACTIVE ADULT; DAY CENT DAY CENT PER [address] [facility] ROUTINE 3 Y Y ECG [facility] W/LEAST 12 LDS TRCG ONLY W/O I&R GROUND A0425 [facility] MILEAGE 3 N-ASHISH N-ASHISH PER CO EMS CO EMS STATUTE MILE PROTHROMB 55250 [facility] IN TIME 3 Y Y [facility] C-REACTIV 36177 [facility] E [facility]OTEIN 3 Y [place] [facility] [place] [address] [facility] THYROID 3 Y Y [facility] TSH [facility]LOOD 78209 [facility] COUNT 3 Y Y COMPLETE [facility] [place] [address] [facility] TROPONIN 3 Y Y [facility] JOSE ALFREDO DAY CARE S5100 [facility] 3 N ACTIVE N ACTIVE ADULT; DAY CENT DAY CENT PER 15 MINUTES DAY CARE S5100 [facility] 2 N ACTIVE N ACTIVE ADULT; DAY CENT DAY CENT PER 15 MINUTES PRTBLE E0431 JANAE CARDOSO GASEOUS 2 HOME HOME O2 SYS MEDICAL MEDICAL RENT; EQUIPME EQUIPME FLWMTR HUMIDFR&M ASK O2 CONC 1 E1390 [facility] CARDOSO [place] 2 HOME HOME 85%/>02 MEDICAL MEDICAL CONC AT EQUIPME EQUIPME PRSC FLW RATE DAY CARE S5100 [facility] 2 N ACTIVE N ACTIVE ADULT; DAY CENT DAY CENT PER 15 MINUTES DAY CARE S5100 [facility] 2 N ACTIVE N ACTIVE ADULT; DAY CENT DAY CENT PER 15 MINUTES DAY CARE S5100 [facility] 2 N ACTIVE N ACTIVE ADULT; DAY CENT DAY CENT PER 15 MINUTES DAY CARE S5100 [facility] 2 N ACTIVE N ACTIVE ADULT; DAY CENT DAY CENT PER 15 MINUTES DAY CARE S5100 [facility] 2 N ACTIVE N ACTIVE ADULT; DAY CENT DAY CENT PER 15 MINUTES DAY CARE S5100 [facility] 2 N ACTIVE N ACTIVE ADULT; DAY CENT DAY CENT PER 15 MINUTES DAY CARE S5100 [facility] 2 N ACTIVE N ACTIVE ADULT; DAY CENT DAY CENT PER 15 MINUTES DAY CARE S5100 [facility] 2 N ACTIVE N ACTIVE ADULT; DAY CENT DAY CENT PER 15 MINUTES DAY CARE S5100 [facility] 2 N ACTIVE N ACTIVE ADULT; DAY CENT DAY CENT PER 15 MINUTES DAY CARE S5100 [facility] 2 N ACTIVE N ACTIVE ADULT; DAY CENT DAY CENT PER 15 MINUTES DAY CARE S5100 [facility] 2 N ACTIVE N ACTIVE ADULT; DAY CENT DAY CENT PER 15 MINUTES DAY CARE S5100 [facility] 2 N ACTIVE N ACTIVE ADULT; DAY CENT DAY CENT PER 15 MINUTES DAY CARE S5100 [facility] 2 N ACTIVE N ACTIVE ADULT; DAY CENT DAY CENT PER 15 MINUTES PRTBLE E0431 JANAE CARDOSO GASEOUS 2 HOME HOME O2 SYS MEDICAL MEDICAL RENT; EQUIPME EQUIPME FLWMTR HUMIDFR&M ASK O2 CONC 1 E1390 JANAE CARDOSO [place] 2 HOME HOME 85%/>02 MEDICAL MEDICAL CONC AT EQUIPME EQUIPME PRSC FLW RATE DAY CARE S5100 [facility] 2 N ACTIVE N ACTIVE ADULT; DAY CENT DAY CENT PER 15 MINUTES DAY CARE S5100 [facility] 2 N ACTIVE N ACTIVE ADULT; DAY CENT DAY CENT PER 15 MINUTES DAY CARE S5100 [facility] 2 N ACTIVE N ACTIVE ADULT; DAY CENT DAY CENT PER 15 MINUTES DAY CARE S5100 [facility] 2 N ACTIVE N ACTIVE ADULT; DAY CENT DAY CENT PER 15 MINUTES DAY CARE S5100 [facility] 2 N ACTIVE N ACTIVE ADULT; DAY CENT DAY CENT PER 15 MINUTES DAY CARE S5100 [facility] 2 N ACTIVE N ACTIVE ADULT; DAY CENT DAY CENT PER 15 MINUTES POLYSOM [id number] SUSAN DAVIS 6/>YRS 2 [facility] H[facility] SLEEP 4/> INC INC ADDL [facility] ATT[facility] POLYSOM 41268 MARLON DEAN 6/>YRS 2 MEDICAL ANI SLEEP SERV W/CPAP FOUNDATIO 4/> ADDL [facility] DAY CARE S5100 [facility] 2 N ACTIVE N ACTIVE ADULT; DAY CENT DAY CENT PER 15 MINUTES DAY CARE S5100 [facility] 2 N ACTIVE N ACTIVE ADULT; DAY CENT DAY CENT PER 15 MINUTES DAY CARE S5100 [facility] 2 N ACTIVE N ACTIVE ADULT; DAY CENT DAY CENT PER 15 MINUTES DAY CARE S5100 [facility] 2 N ACTIVE N ACTIVE ADULT; DAY CENT DAY CENT PER 15 MINUTES DAY CARE S5100 [facility] 2 N ACTIVE N ACTIVE ADULT; DAY CENT DAY CENT PER 15 MINUTES DAY CARE S5100 [facility] 2 N ACTIVE N ACTIVE ADULT; DAY CENT DAY CENT PER 15 MINUTES DAY CARE S5100 [facility] 2 N ACTIVE N ACTIVE ADULT; DAY CENT DAY CENT PER 15 MINUTES DAY CARE S5100 [facility] 2 N ACTIVE N ACTIVE ADULT; DAY CENT DAY CENT PER 15 MINUTES PRTBLE E0431 JANAE CARDOSO GASEOUS 2 HOME HOME O2 SYS MEDICAL MEDICAL RENT; EQUIPME EQUIPME FLWMTR HUMIDFR&M ASK O2 CONC 1 E1390 JANAE CARDOSO [place] 2 HOME HOME 85%/>02 MEDICAL MEDICAL CONC AT EQUIPME EQUIPME PRSC FLW RATE DAY CARE S5100 [facility] 2 N ACTIVE N ACTIVE ADULT; DAY CENT DAY CENT PER 15 MINUTES DAY CARE S5100 [facility] 2 N ACTIVE N ACTIVE ADULT; DAY CENT DAY CENT PER [address] [facility] IC PX 1/> 2 Y Y AREAS [facility]OSP[facility] EACH 15 [place] [address] [facility] 1/> AREAS 2 Y Y EA 15 HOSPITAL HOSPITAL MIN GAIT TRAINJ W/STAIR BLOOD 17432 [facility] COUNT 2 Y Y COMPLETE [facility] AUTOMATED BASIC 02529 [facility] METABOLIC 2 Y Y [facility] 540[address] [facility] 2 NURSE BELKYS DAY PRACTITIO MANAGEMEN NER GR T 30 MIN/< BASIC 44743 [facility] METABOLIC 2 Y Y [facility] TOTAL PLETHYSMO 04414 [facility] GRAPHY 2 Y Y [facility] VOLUMES W/WO AIRWAY RESIST SBSQ 15139 [place] [address] NURSE BELKYS CARE/DAY PRACTITIO 35 NER GR MINUTES SPMTRY 80989 [facility] W/VC 2 Y Y EXPIRATOR [facility] Y KARINE W/WO MXML VOL VNTJ INTRDUCR/ C1894 [facility] SHEATH 2 Y Y NOT [facility] INTRACARD EP NON-LASR GLUC BLD 27049 [facility] GLUC MNTR 2 Y Y [facility] [place] [address] [facility] MAGNESIUM 2 Y Y [facility] LOCM Q9967 [facility] [phone] 2 Y Y MG/ML [facility] IODINE CONCENTRA TION PER ML SBSQ 37562 [facility] 2 NURSE BELKYS CARE/DAY PRACTITIO 35 [place] [address] [facility] THYROID 2 Y Y [facility] TSH BLOOD 63027 [facility] COUNT 2 Y Y [facility] AUTOMATED INITIAL 20990 [facility] 2 MEDICAL CARE/DAY SERV 70 FOUNDATIO MINUTES CLOSURE C1760 [facility] DEVICE 2 Y Y VASCULAR [facility] CATH PLMT 58326 MARLON PENA R HRT & 2 MEDICAL ARTS SERV W/NJX & FOUNDATIO ANGIO IMG S&I BASIC 73906 [facility] METABOLIC 2 Y Y PANEL [facility] CALCIUM TOTAL GUIDE C1769 [facility] WIRE 2 Y Y HOSPITAL HOSPITAL COMBINED 3723 [facility] RIGHT&LEF 2 Y Y T HEART [facility] CARD CATHETERI ZATION COMBINED 8854 [facility] RIGHT AND 2 Y Y LEFT [facility] HEART ANGIOCARD IOGRAPHY CORONARY 8856 [facility] ARTERIOGR 2 [facility] CATHETERS BASIC 19140 [facility] METABOLIC 2 Y Y PANEL [facility] CALCIUM TOTAL PLETHYSMO 59034 MARLON JOEY GRAPHY 2 MEDICAL [facility] LUNG SERV VOLUMES FOUNDATIO W/WO AIRWAY RESIST INITIAL 49575 [place] [address] NURSE BELKYS CARE/DAY PRACTITIO 30 NER GR MINUTES PHYSICAL 32830 [facility] THERAPY 2 Y Y EVALUATIO [facility] N BLOOD 02363 [facility] COUNT 2 Y Y COMPLETE [facility] [place] [address] [facility] TROPONIN 2 Y Y [facility] [place] [address] [facility] 1/> AREAS 2 Y Y EA [address] [place] [address] MIN GAIT TRAINJ W/[place] [address] MARLON JOEY DIFFUSING 2 MEDICAL [facility] CAPACITY SERV FOUNDATIO LIPID 39374 [facility] PANEL 2 Y Y [facility] SPMTRY 74566 MARLON COOK W/VC 2 MEDICAL PEPITO EXPIRATOR SERV Y KARINE FOUNDATIO W/WO MXML VOL VNTJ ECHO 84081 MARLON FLETCHER TTHRC R-T 2 MEDICAL 2D SERV W/WOM-MOD FOUNDATIO E COMPL SPEC&COLR D ECG 67101 MARLON Sheikh ROUTINE 2 MEDICAL ECG SERV W/LEAST FOUNDATIO 12 LDS I&R ONLY DAY CARE S5100 [facility] SERVICES 2 N ACTIVE N ACTIVE ADULT; DAY CENT DAY CENT PER 15 [place] [address] [facility] TROPONIN 2 Y Y QUANTITAT [facility] JOSE ALFREDO COLLECTIO 43584 [facility] N VENOUS 2 Y Y BLOOD [facility] VENIPUNCT URE BLOOD 20920 [facility] COUNT 2 Y Y COMPLETE [facility] AUTO&AUTO DIFRNTL WBC INITIAL [address]057 [place] [address] MEDICAL MJ CARE/DAY SERV 70 FOUNDATIO MINUTES PROTHROMB 65124 [facility] IN TIME 2 Y Y [facility] CATH PLMT 91368 [facility] R HRT & 2 Y Y ARTS [facility] W/NJX & ANGIO IMG S&I ECG 39909 [facility] ROUTINE 2 Y Y ECG [facility] W/LEAST 12 LDS TRCG ONLY W/O I&R CLOSURE C1760 [facility] DEVICE 2 Y Y VASCULAR [facility] GROUND A0425 [facility] MILEAGE 2 PERRY AMADOR PER CO EMS CO EMS STATUTE MILE THROMBOPL 61304 [facility] ASTIN 2 Y Y TIME [facility] PARTIAL PLASMA/WH OLE BLOOD AMB A0422 [facility] OXYGEN&O2 2 PERRY AMADOR SUPPLIES CO EMS CO EMS LIFE SUSTAININ G SITUATION RADIOLOGI 69984 [facility] C 2 Y Y [facility] CHEST SINGLE VIEW FRONTAL BASIC 48237 [facility] 2 Y Y PANEL [facility] CALCIUM TOTAL AMB A0427 [facility] SERVICE 2 PERRY AMADOR ALS CO EMS CO EMS EMERGENCY TRANSPORT LEVEL 1 DAY CARE S5100 [facility] 2 N ACTIVE N ACTIVE ADULT; DAY CENT DAY CENT PER 15 MINUTES DAY CARE S5100 [facility] 2 N ACTIVE N ACTIVE ADULT; DAY CENT DAY CENT PER 15 MINUTES DAY CARE S5100 [facility] 2 N ACTIVE N ACTIVE ADULT; DAY CENT DAY CENT PER 15 MINUTES DAY CARE S5100 [facility] 2 N ACTIVE N ACTIVE ADULT; DAY CENT DAY CENT PER 15 MINUTES DAY CARE S5100 [facility] 2 N ACTIVE N ACTIVE ADULT; DAY CENT DAY CENT PER 15 MINUTES DAY CARE S5100 [facility] 2 N ACTIVE N ACTIVE ADULT; DAY CENT DAY CENT PER [address] 2 GERALDOKUMAR CHOW METHYLPRE DNISOLONE PHYSICIAN PHYSICIAN ACETATE S S [address] [facility] IC 2 GERALDO II QUENTIN PROPHYLAC TIC/DX PHYSICIAN INJECTION S SUBQ/IM DAY CARE S5100 [facility] 2 N ACTIVE N ACTIVE ADULT; DAY CENT DAY CENT PER 15 MINUTES PRTBLE E0431 JANAE CARDOSO GASEOUS 2 HOME HOME O2 SYS MEDICAL MEDICAL RENT; EQUIPME EQUIPME FLWMTR HUMIDFR&M ASK O2 CONC 1 E1390 JANAE CARDOSO DEL [place] 2 HOME HOME 85%/>02 MEDICAL MEDICAL CONC AT EQUIPME EQUIPME PRSC FLW RATE DAY CARE S5100 [facility] 2 N ACTIVE N ACTIVE ADULT; DAY CENT DAY CENT PER 15 MINUTES DAY CARE S5100 [facility] 2 N ACTIVE N ACTIVE ADULT; DAY CENT DAY CENT PER 15 MINUTES DAY CARE S5100 [facility] 2 N ACTIVE N ACTIVE ADULT; DAY CENT DAY CENT PER 15 MINUTES DAY CARE S5100 [facility] 2 N ACTIVE N ACTIVE ADULT; DAY CENT DAY CENT PER 15 MINUTES DAY CARE S5100 [facility] 2 N ACTIVE N ACTIVE ADULT; DAY CENT DAY CENT PER 15 MINUTES CUL BACT 33589 [facility] STOOL 2 [facility] AEROBIC ADDIE ADDIE ISOL SALMONELL A&SHIGELL CUL BACT 83931 [facility] STOOL 2 [facility] AEROBIC ADDIE ADDIE ADDL PATHOGENS &[place] [address] [facility] SHIGA-LIK 2 [facility] TOXIN ADDIE ADDIE INF AGENT [address] [facility] DET 2 [facility] NUCLEIC ADDIE ADDIE ACID CLOSTRIDI UM AMP PROBE DAY CARE S5100 [facility] 2 N ACTIVE N ACTIVE ADULT; DAY CENT DAY CENT PER 15 MINUTES COMPREHEN 22110 [facility] 2 [facility] METABOLIC ADDIE ADDIE PANEL BLOOD 28143 [facility] COUNT 2 [facility] COMPLETE ADDIE ADDIE AUTO&AUTO DIFRNTL WBC COLLECTIO 34524 [facility] N VENOUS 2 [facility] [place] [address] [facility] INFUSION 2 [facility] HYDRATION ADDIE ADDIE INITIAL 31 MIN-1 HOUR ADMINISTR G0008 [facility] ATION OF 2 [facility] INFLUENZA VIRUS PHYSICIAN PHYSICIAN VACCINE S [place] IIV [address] [place] VACCINE 2 [facility] QUENTIN PRESERV FREE PHYSICIAN INCREASED S AG CONTENT IM DAY CARE S5100 [facility] 2 N ACTIVE N ACTIVE ADULT; DAY CENT DAY CENT PER 15 MINUTES DAY CARE S5100 [facility] 2 N ACTIVE N ACTIVE ADULT; DAY CENT DAY CENT PER 15 MINUTES DAY CARE S5100 [facility] 2 N ACTIVE N ACTIVE ADULT; DAY CENT DAY CENT PER 15 MINUTES PRTBLE E0431 JANAE CARDOSO GASEOUS 2 HOME HOME O2 SYS MEDICAL MEDICAL RENT; EQUIPME EQUIPME FLWMTR HUMIDFR&M ASK O2 CONC 1 E1390 JANAE CARDOSO [place] 2 HOME HOME 85%/>02 MEDICAL MEDICAL CONC AT EQUIPME EQUIPME PRSC FLW RATE DAY CARE S5100 [facility] 2 N ACTIVE N ACTIVE ADULT; DAY CENT DAY CENT PER 15 MINUTES DAY CARE S5100 [facility] 2 N ACTIVE N ACTIVE ADULT; DAY CENT DAY CENT PER 15 MINUTES DAY CARE S5100 [facility] 2 N ACTIVE N ACTIVE ADULT; DAY CENT DAY CENT PER 15 MINUTES DAY CARE S5100 [facility] 2 N ACTIVE N ACTIVE ADULT; DAY CENT DAY CENT PER 15 MINUTES DAY CARE S5100 [facility] 2 N ACTIVE N ACTIVE ADULT; DAY CENT DAY CENT PER 15 MINUTES DAY CARE S5100 [facility] 2 N ACTIVE N ACTIVE ADULT; DAY CENT DAY CENT PER 15 MINUTES DAY CARE S5100 [facility] 2 N ACTIVE N ACTIVE ADULT; DAY CENT DAY CENT PER 15 MINUTES DAY CARE S5100 [facility] 2 N ACTIVE N ACTIVE ADULT; DAY CENT DAY CENT PER 15 MINUTES DAY CARE S5100 [facility] 2 N ACTIVE N ACTIVE ADULT; DAY CENT DAY CENT PER 15 MINUTES DAY CARE S5100 [facility] 2 N ACTIVE N ACTIVE ADULT; DAY CENT DAY CENT PER 15 MINUTES DAY CARE S5100 [facility] 2 N ACTIVE N ACTIVE ADULT; DAY CENT DAY CENT PER 15 MINUTES OCCUPATIO 11128 [facility] NAL 2 N ACTIVE N ACTIVE THERAPY DAY CENT DAY CENT EVALUATIO N OCCUPATIO 30458 [facility] NAL 2 N ACTIVE N ACTIVE THERAPY DAY CENT DAY CENT EVALUATIO N DAY CARE S5100 [facility] 2 N ACTIVE N ACTIVE ADULT; DAY CENT DAY CENT PER 15 MINUTES DAY CARE S5100 [facility] 2 N ACTIVE N ACTIVE ADULT; DAY CENT DAY CENT PER 15 MINUTES DAY CARE S5100 [facility] 2 N ACTIVE N ACTIVE ADULT; DAY CENT DAY CENT PER 15 MINUTES OCCUPATIO 66400 [facility] NAL 2 N ACTIVE N ACTIVE THERAPY DAY CENT DAY CENT EVALUATIO N DAY CARE S5100 [facility] 2 N ACTIVE N ACTIVE ADULT; DAY CENT DAY CENT PER 15 MINUTES DAY CARE S5100 [facility] 2 N ACTIVE N ACTIVE ADULT; DAY CENT DAY CENT PER 15 MINUTES DAY CARE S5100 [facility] 2 N ACTIVE N ACTIVE ADULT; DAY CENT DAY CENT PER 15 MINUTES OCCUPATIO 86840 [facility] NAL 2 N ACTIVE N ACTIVE THERAPY DAY CENT DAY CENT EVALUATIO N OCCUPATIO 84110 [facility] NAL 2 N ACTIVE N ACTIVE THERAPY DAY CENT DAY CENT EVALUATIO N PRTBLE E0431 JANAE CARDOSO GASEOUS 2 HOME HOME O2 SYS MEDICAL MEDICAL RENT; EQUIPME EQUIPME FLWMTR HUMIDFR&M ASK DAY CARE S5100 [facility] 2 N ACTIVE N ACTIVE ADULT; DAY CENT DAY CENT PER 15 MINUTES O2 CONC 1 E1390 JANAE CARDOSO [place] 2 HOME HOME 85%/>02 MEDICAL MEDICAL CONC AT EQUIPME EQUIPME PRSC FLW RATE DAY CARE S5100 [facility] 2 N ACTIVE N ACTIVE ADULT; DAY CENT DAY CENT PER 15 MINUTES DAY CARE S5100 [facility] 2 N ACTIVE N ACTIVE ADULT; DAY CENT DAY CENT PER [address] D[address] [facility] 2 GERALDO II QUENTIN STICK/TAB LET RGNT PHYSICIAN NON-AUTO S W/O MICRSCP DAY CARE S5100 [facility] 2 N ACTIVE N ACTIVE ADULT; DAY CENT DAY CENT PER 15 MINUTES DAY CARE S5100 [facility] 2 N ACTIVE N ACTIVE ADULT; DAY CENT DAY CENT PER 15 MINUTES DAY CARE S5100 [facility] 2 N ACTIVE N ACTIVE ADULT; DAY CENT DAY CENT PER 15 MINUTES OCCUPATIO 29093 [facility] 2 N ACTIVE N ACTIVE THERAPY DAY CENT DAY CENT EVALUATIO N OCCUPATIO 05553 [facility] 2 N ACTIVE N ACTIVE THERAPY DAY CENT DAY CENT EVALUATIO N DAY CARE S5100 [facility] 2 N ACTIVE N ACTIVE ADULT; DAY CENT DAY CENT PER 15 MINUTES DAY CARE S5100 [facility] 2 N ACTIVE N ACTIVE ADULT; DAY CENT DAY CENT PER 15 MINUTES DAY CARE S5100 [facility] 2 N ACTIVE N ACTIVE ADULT; DAY CENT DAY CENT PER 15 MINUTES OCCUPATIO [id number] [facility] 2 N ACTIVE N ACTIVE THERAPY DAY CENT DAY CENT EVALUATIO N OCCUPATIO [id number] [facility] 2 N ACTIVE N ACTIVE THERAPY DAY CENT DAY CENT EVALUATIO N DAY CARE S5100 [facility] 2 N ACTIVE N ACTIVE ADULT; DAY CENT DAY CENT PER 15 MINUTES DAY CARE S5100 [facility] 2 N ACTIVE N ACTIVE ADULT; DAY CENT DAY CENT PER 15 MINUTES DAY CARE S5100 [facility] 2 N ACTIVE N ACTIVE ADULT; DAY CENT DAY CENT PER 15 MINUTES DAY CARE S5100 [facility] 2 N ACTIVE N ACTIVE ADULT; DAY CENT DAY CENT PER 15 MINUTES DAY CARE S5100 [facility] 2 N ACTIVE N ACTIVE ADULT; DAY CENT DAY CENT PER 15 MINUTES OCCUPATIO [id number] [facility] 2 N ACTIVE N ACTIVE THERAPY DAY CENT DAY CENT EVALUATIO N OCCUPATIO [id number] [facility] 2 N ACTIVE N ACTIVE THERAPY DAY CENT DAY CENT EVALUATIO N DAY CARE S5100 [facility] 2 N ACTIVE N ACTIVE ADULT; DAY CENT DAY CENT PER 15 MINUTES DAY CARE S5100 [facility] 2 N ACTIVE N ACTIVE ADULT; DAY CENT DAY CENT PER 15 MINUTES PRTBLE [id number] [facility] GASEOUS 2 HOME HOME O2 SYS MEDICAL MEDICAL RENT; EQUIPME EQUIPME FLWMTR HUMIDFR&M ASK O2 CONC 1 [id number] [facility]NAE [facility]OS[facility] [place] 2 HOME HOME 85%/>02 MEDICAL MEDICAL CONC AT EQUIPME EQUIPME PRSC FLW RATE DAY CARE S5100 [facility] 2 N ACTIVE N ACTIVE ADULT; DAY CENT DAY CENT PER 15 MINUTES OCCUPATIO [id number] [facility] 2 N ACTIVE N ACTIVE THERAPY DAY CENT DAY CENT EVALUATIO N OCCUPATIO [id number] [facility] 2 N ACTIVE N ACTIVE THERAPY DAY CENT DAY CENT EVALUATIO N DAY CARE S5100 [facility] 2 N ACTIVE N ACTIVE ADULT; DAY CENT DAY CENT PER 15 MINUTES DAY CARE S5100 [facility] 2 N ACTIVE N ACTIVE ADULT; DAY CENT DAY CENT PER 15 MINUTES DAY CARE S5100 [facility] 2 N ACTIVE N ACTIVE ADULT; DAY CENT DAY CENT PER 15 MINUTES DAY CARE S5100 [facility] 2 N ACTIVE N ACTIVE ADULT; DAY CENT DAY CENT PER 15 MINUTES DAY CARE S5100 [facility] 2 N ACTIVE N ACTIVE ADULT; DAY CENT DAY CENT PER 15 MINUTES OCCUPATIO [id number] [facility] 2 N ACTIVE N ACTIVE THERAPY DAY CENT DAY CENT EVALUATIO N OCCUPATIO [id number] [facility] 2 N ACTIVE N ACTIVE THERAPY DAY CENT DAY CENT EVALUATIO N DAY CARE S5100 [facility] 2 N ACTIVE N ACTIVE ADULT; DAY CENT DAY CENT PER 15 MINUTES DAY CARE S5100 [facility] 2 N ACTIVE N ACTIVE ADULT; DAY CENT DAY CENT PER 15 MINUTES DAY CARE S5100 [facility] 2 N ACTIVE N ACTIVE ADULT; DAY CENT DAY CENT PER 15 MINUTES DAY CARE S5100 [facility] 2 N ACTIVE N ACTIVE ADULT; DAY CENT DAY CENT PER 15 MINUTES DAY CARE S5100 [facility] 2 N ACTIVE N ACTIVE ADULT; DAY CENT DAY CENT PER 15 MINUTES DAY CARE S5100 [facility] 2 N ACTIVE N ACTIVE ADULT; DAY CENT DAY CENT PER 15 MINUTES DAY CARE S5100 [facility] 2 N ACTIVE N ACTIVE ADULT; DAY CENT DAY CENT PER 15 MINUTES DAY CARE S5100 [facility] 2 N ACTIVE N ACTIVE ADULT; DAY CENT DAY CENT PER 15 MINUTES DAY CARE S5100 [facility] 2 N ACTIVE N ACTIVE ADULT; DAY CENT DAY CENT PER 15 MINUTES OCCUPATIO 22999 [facility] 2 N ACTIVE N ACTIVE THERAPY DAY CENT DAY CENT EVALUATIO N DAY CARE S5100 [facility] 2 N ACTIVE N ACTIVE ADULT; DAY CENT DAY CENT PER 15 MINUTES PRTBLE E0431 JANAE CARDOSO GASEOUS 2 HOME HOME O2 SYS MEDICAL MEDICAL RENT; EQUIPME EQUIPME FLWMTR HUMIDFR&M ASK O2 CONC 1 E1390 [place]E CARD[place]O [place] 2 HOME HOME 85%/>02 MEDICAL MEDICAL CONC AT EQUIPME EQUIPME PRSC FLW RATE DAY CARE S5100 [facility] 2 N ACTIVE N ACTIVE ADULT; DAY CENT DAY CENT PER 15 MINUTES DAY CARE S5100 [facility] 2 N ACTIVE N ACTIVE ADULT; DAY CENT DAY CENT PER 15 MINUTES DAY CARE S5100 [facility] 2 N ACTIVE N ACTIVE ADULT; DAY CENT DAY CENT PER 15 MINUTES DAY CARE S5100 [facility] 2 N ACTIVE N ACTIVE ADULT; DAY CENT DAY CENT PER 15 MINUTES DAY CARE S5100 [facility] 2 N ACTIVE N ACTIVE ADULT; DAY CENT DAY CENT PER 15 MINUTES DAY CARE S5100 [facility] 2 N ACTIVE N ACTIVE ADULT; DAY CENT DAY CENT PER 15 MINUTES DAY CARE S5100 [facility] 2 N ACTIVE N ACTIVE ADULT; DAY CENT DAY CENT PER 15 MINUTES DAY CARE S5100 [facility] 2 N ACTIVE N ACTIVE ADULT; DAY CENT DAY CENT PER 15 MINUTES DAY CARE S5100 [facility] 2 N ACTIVE N ACTIVE ADULT; DAY CENT DAY CENT PER 15 MINUTES DAY CARE S5100 [facility] 2 N ACTIVE N ACTIVE ADULT; DAY CENT DAY CENT PER 15 MINUTES DAY CARE S5100 [facility] 2 N ACTIVE N ACTIVE ADULT; DAY CENT DAY CENT PER 15 MINUTES DAY CARE S5100 [facility] 2 N ACTIVE N ACTIVE ADULT; DAY CENT DAY CENT PER 15 MINUTES DAY CARE S5100 [facility] 2 N ACTIVE N ACTIVE ADULT; DAY CENT DAY CENT PER 15 MINUTES DAY CARE S5100 [facility] 2 N ACTIVE N ACTIVE ADULT; DAY CENT DAY CENT PER 15 MINUTES DAY CARE S5100 [facility] 2 N ACTIVE N ACTIVE ADULT; DAY CENT DAY CENT PER 15 MINUTES DAY CARE S5100 [facility] 2 N ACTIVE N ACTIVE ADULT; DAY CENT DAY CENT PER [address] [facility]IVE 2 [facility] MET[facility]OLIC PANEL MEDICALCE MEDICALCE NTER NTER BLOOD [address] COUNT 2 [facility] COMPLETE AUTOMATED [place] [address] THYROID 2 [facility] STIMULATI NG MEDICALCE MEDICALCE HORMONE NTER NTER TSH DAY CARE S5100 [facility] 2 N ACTIVE N ACTIVE ADULT; DAY CENT DAY CENT PER 15 MINUTES DAY CARE S5100 [facility] 2 N ACTIVE N ACTIVE ADULT; DAY CENT DAY CENT PER 15 MINUTES DAY CARE S5100 [facility] 2 N ACTIVE N ACTIVE ADULT; DAY CENT DAY CENT PER 15 MINUTES PRTBLE E0431 JANAE CARDOSO GASEOUS 2 HOME HOME O2 SYS MEDICAL MEDICAL RENT; EQUIPME EQUIPME FLWMTR HUMIDFR&M ASK O2 CONC 1 E1390 JANAE CARDOSO [place] 2 HOME HOME 85%/>02 MEDICAL MEDICAL CONC AT EQUIPME EQUIPME PRSC FLW RATE DAY CARE S5100 [facility] 2 N ACTIVE N ACTIVE ADULT; DAY CENT DAY CENT PER 15 MINUTES DAY CARE S5100 [facility] 2 N ACTIVE N ACTIVE ADULT; DAY CENT DAY CENT PER 15 MINUTES DAY CARE S5100 [facility] 2 N ACTIVE N ACTIVE ADULT; DAY CENT DAY CENT PER 15 MINUTES DAY CARE S5100 [facility] 2 N ACTIVE N ACTIVE ADULT; DAY CENT DAY CENT PER 15 MINUTES DAY CARE S5100 [facility] 2 N ACTIVE N ACTIVE ADULT; DAY CENT DAY CENT PER 15 MINUTES DAY CARE S5100 [facility] 2 N ACTIVE N ACTIVE ADULT; DAY CENT DAY CENT PER 15 MINUTES DAY CARE S5100 [facility] 2 N ACTIVE N ACTIVE ADULT; DAY CENT DAY CENT PER 15 MINUTES DAY CARE S5100 [facility] 2 N ACTIVE N ACTIVE ADULT; DAY CENT DAY CENT PER 15 MINUTES DAY CARE S5100 [facility] 2 N ACTIVE N ACTIVE ADULT; DAY CENT DAY CENT PER 15 MINUTES DAY CARE S5100 [facility] 2 N ACTIVE N ACTIVE ADULT; DAY CENT DAY CENT PER 15 MINUTES DAY CARE S5100 [facility] 2 N ACTIVE N ACTIVE ADULT; DAY CENT DAY CENT PER 15 MINUTES DAY CARE S5100 [facility] 2 N ACTIVE N ACTIVE ADULT; DAY CENT DAY CENT PER 15 MINUTES DAY CARE S5100 [facility] 2 N ACTIVE N ACTIVE ADULT; DAY CENT DAY CENT PER 15 MINUTES DAY CARE S5100 [facility] 2 N ACTIVE N ACTIVE ADULT; DAY CENT DAY CENT PER 15 MINUTES DAY CARE S5100 [facility] 2 N ACTIVE N ACTIVE ADULT; DAY CENT DAY CENT PER 15 MINUTES DAY CARE S5100 [facility] 2 N ACTIVE N ACTIVE ADULT; DAY CENT DAY CENT PER 15 MINUTES PRTBLE E0431 JANAE CARDOSO GASEOUS 2 HOME HOME O2 SYS MEDICAL MEDICAL RENT; EQUIPME EQUIPME FLWMTR HUMIDFR&M ASK O2 CONC 1 E1390 JANAE CARDOSO [place] 2 HOME HOME 85%/>02 MEDICAL MEDICAL CONC AT EQUIPME EQUIPME PRSC FLW RATE DAY CARE S5100 [facility] 2 N ACTIVE N ACTIVE ADULT; DAY CENT DAY CENT PER 15 MINUTES DAY CARE S5100 [facility] 2 N ACTIVE N ACTIVE ADULT; DAY CENT DAY CENT PER 15 MINUTES DAY CARE S5100 [facility] 2 N ACTIVE N ACTIVE ADULT; DAY CENT DAY CENT PER 15 MINUTES DAY CARE S5100 [facility] 2 N ACTIVE N ACTIVE ADULT; DAY CENT DAY CENT PER 15 MINUTES DAY CARE S5100 [facility] 2 N ACTIVE N ACTIVE ADULT; DAY CENT DAY CENT PER 15 MINUTES DAY CARE S5100 [facility] 2 N ACTIVE N ACTIVE ADULT; DAY CENT DAY CENT PER 15 MINUTES DAY CARE S5100 [facility] 2 N ACTIVE N ACTIVE ADULT; DAY CENT DAY CENT PER 15 MINUTES DAY CARE S5100 [facility] 2 N ACTIVE N ACTIVE ADULT; DAY CENT DAY CENT PER 15 MINUTES DAY CARE S5100 [facility] 2 N ACTIVE N ACTIVE ADULT; DAY CENT DAY CENT PER 15 MINUTES DAY CARE S5100 [facility] 2 N ACTIVE N ACTIVE ADULT; DAY CENT DAY CENT PER 15 MINUTES COMPREHEN [id number] COMBINED COMBINED SIVE 2 PHYSICIAN PHYSICIAN METABOLIC S LA S LA PANEL LIPID 31452 COMBINED COMBINED PANEL 2 PHYSICIAN PHYSICIAN S [place] BLOOD 73268 COMBINED COMBINED COUNT 2 PHYSICIAN PHYSICIAN COMPLETE S LA S LA AUTO&[place] [address] COMBINED COMBINED THYROID 2 PHYSICIAN PHYSICIAN STIMULATI S LA S LA NG HORMONE TSH DAY CARE S5100 [facility] 2 N ACTIVE N ACTIVE ADULT; DAY CENT DAY CENT PER 15 MINUTES DAY CARE S5100 [facility] 2 N ACTIVE N ACTIVE ADULT; DAY CENT DAY CENT PER 15 MINUTES DAY CARE S5100 [facility] 2 N ACTIVE N ACTIVE ADULT; DAY CENT DAY CENT PER 15 MINUTES DAY CARE S5100 [facility] 2 N ACTIVE N ACTIVE ADULT; DAY CENT DAY CENT PER 15 MINUTES DAY CARE S5100 [facility] 2 N ACTIVE N ACTIVE ADULT; DAY CENT DAY CENT PER 15 MINUTES DAY CARE S5100 [facility] 2 N ACTIVE N ACTIVE ADULT; DAY CENT DAY CENT PER 15 MINUTES NONEMERGE A0100 [facility]Y 2 [facility] [place] TRANSPORT ACTION ACTION ATION; TAXI NONEMERGE A0100 [facility] [place] [place] TRANSPORT ACTION ACTION ATION; TAXI DAY CARE S5100 [facility] 2 N ACTIVE N ACTIVE ADULT; DAY CENT DAY CENT PER 15 MINUTES PRTBLE E0431 JANAE CARDOSO GASEOUS 2 HOME HOME O2 SYS MEDICAL MEDICAL RENT; EQUIPME EQUIPME FLWMTR HUMIDFR&M ASK O2 CONC 1 E1390 JANAE CARDOSO [place] 2 HOME HOME 85%/>02 MEDICAL MEDICAL CONC AT EQUIPME EQUIPME PRSC FLW RATE DAY CARE S5100 [facility] 2 N ACTIVE N ACTIVE ADULT; DAY CENT DAY CENT PER 15 MINUTES DAY CARE S5100 [facility] 2 N ACTIVE N ACTIVE ADULT; DAY CENT DAY CENT PER 15 MINUTES DAY CARE S5100 [facility] 2 N ACTIVE N ACTIVE ADULT; DAY CENT DAY CENT PER 15 MINUTES DAY CARE S5100 [facility] 2 N ACTIVE N ACTIVE ADULT; DAY CENT DAY CENT PER 15 MINUTES NONEMERGE A0100 [facility] 2 [facility] [place] [place] TRANSPORT ACTION ACTION ATION; TAXI NONEMERGE A0100 [facility] 2 [facility] [place] [place] TRANSPORT ACTION ACTION ATION; TAXI DAY CARE S5100 [facility] 2 N ACTIVE N ACTIVE ADULT; DAY CENT DAY CENT PER 15 MINUTES DAY CARE S5100 [facility] 2 N ACTIVE N ACTIVE ADULT; DAY CENT DAY CENT PER 15 MINUTES DAY CARE S5100 [facility] 2 N ACTIVE N ACTIVE ADULT; DAY CENT DAY CENT PER 15 MINUTES DAY CARE S5100 [facility] 2 N ACTIVE N ACTIVE ADULT; DAY CENT DAY CENT PER 15 MINUTES DAY CARE S5100 [facility] 2 N ACTIVE N ACTIVE ADULT; DAY CENT DAY CENT PER 15 MINUTES NONEMERGE A0100 [facility] 2 COMMUNITY COMMUNITY TRANSPORT ACTION ACTION ATION; TAXI NONEMERGE A0100 [facility] 2 COMMUNITY COMMUNITY TRANSPORT ACTION ACTION ATION; TAXI DAY CARE S5100 [facility] 2 N ACTIVE N ACTIVE ADULT; DAY CENT DAY CENT PER 15 MINUTES DAY CARE S5100 [facility] 2 N ACTIVE N ACTIVE ADULT; DAY CENT DAY CENT PER 15 MINUTES DAY CARE S5100 [facility] 2 N ACTIVE N ACTIVE ADULT; DAY CENT DAY CENT PER 15 MINUTES DAY CARE S5100 [facility] 2 N ACTIVE N ACTIVE ADULT; DAY CENT DAY CENT PER 15 MINUTES DAY CARE S5100 [facility] 2 N ACTIVE N ACTIVE ADULT; DAY CENT DAY CENT PER 15 MINUTES DAY CARE S5100 [facility] 2 N ACTIVE N ACTIVE ADULT; DAY CENT DAY CENT PER 15 MINUTES NONEMERGE A0100 [facility] 2 COMMUNITY COMMUNITY TRANSPORT ACTION ACTION ATION; TAXI NONEMERGE A0100 [facility] 2 COMMUNITY COMMUNITY TRANSPORT ACTION ACTION ATION; TAXI DAY CARE S5100 [facility] 2 N ACTIVE N ACTIVE ADULT; DAY CENT DAY CENT PER 15 MINUTES DAY CARE S5100 [facility] 2 N ACTIVE N ACTIVE ADULT; DAY CENT DAY CENT PER 15 MINUTES DAY CARE S5100 [facility] 2 N ACTIVE N ACTIVE ADULT; DAY CENT DAY CENT PER 15 MINUTES DAY CARE S5100 [facility] 2 N ACTIVE N ACTIVE ADULT; DAY CENT DAY CENT PER 15 MINUTES DAY CARE S5100 [facility] 2 N ACTIVE N ACTIVE ADULT; DAY CENT DAY CENT PER 15 MINUTES PRTBLE E0431 JANAE CARDOSO GASEOUS 2 HOME HOME O2 SYS MEDICAL MEDICAL RENT; EQUIPME EQUIPME FLWMTR HUMIDFR&M ASK O2 CONC 1 E1390 JANAE CARDOSO DEL [place] 2 HOME HOME 85%/>02 MEDICAL MEDICAL CONC AT EQUIPME EQUIPME PRSC FLW RATE TECHNETIU A9502 [facility] TC-99M 2 GERALDO GERALDO TETROFOSM ADDIE ADIDE IN DX PER STUDY DOSE MYOCARDIA [address] [facility] SPECT 2 GERALDO ER GUILHERME MULTIPLE STUDIES PHYSICIAN S CV STRS 00327 [facility] TST 2 GERALDO GERALDO XERS&/OR ADDIE ADDIE RX CONT ECG TRCG ONLY CV STRS 07906 [facility] TST 2 GERALDO ER GUILHERME XERS&/OR RX CONT PHYSICIAN ECG W/O S I&R ECHO 28809 [facility] TTHRC R-T 2 GERALDO ER GUILHERME 2D W/WOM-MOD PHYSICIAN E COMPL S SPEC&COLR D CV STRS 00523 [facility] TST 2 GERALDO ER GUILHERME XERS&/OR RX CONT PHYSICIAN ECG I&R S ONLY DAY CARE S5100 [facility] 2 N ACTIVE N ACTIVE ADULT; DAY CENT DAY CENT PER 15 MINUTES DAY CARE S5100 [facility] 2 N ACTIVE N ACTIVE ADULT; DAY CENT DAY CENT PER 15 MINUTES DAY CARE S5100 [facility] 2 N ACTIVE N ACTIVE ADULT; DAY CENT DAY CENT PER 15 MINUTES DAY CARE S5100 [facility] 2 N ACTIVE N ACTIVE ADULT; DAY CENT DAY CENT PER 15 MINUTES DAY CARE S5100 [facility] 2 N ACTIVE N ACTIVE ADULT; DAY CENT DAY CENT PER 15 MINUTES DAY CARE S5100 [facility] 2 N ACTIVE N ACTIVE ADULT; DAY CENT DAY CENT PER 15 MINUTES DAY CARE S5100 [facility] 1 N ACTIVE N ACTIVE ADULT; DAY CENT DAY CENT PER 15 MINUTES NONEMERGE A0100 [facility] 1 COMMUNITY TRANSPORT ACTION ATION; TAXI NONEMERGE A0100 [facility] 1 COMMUNITY TRANSPORT ACTION ATION; TAXI DAY CARE S5100 [facility] 1 N ACTIVE N ACTIVE ADULT; DAY CENT DAY CENT PER 15 MINUTES DAY CARE S5100 [facility] 1 N ACTIVE N ACTIVE ADULT; [...] RENT; EQUIPME EQUIPME FLWMTR HUMIDFR&M ASK SBSQ 98477 [facility] 1 [facility] CARE/DAY 35 PHYSICIAN MINUTES S SBSQ 09477 [place] [address] S DISEASE [facility] CARE/DAY 25 CONSULTAN MINUTES SBSQ 78207 [facility] 1 [facility] CARE/DAY 35 PHYSICIAN MINUTES S SBSQ [address] CARE/DAY [address] [place] [address] RADIOLOGY ONUR ABDOMEN & 1 MAR PELVIS ASSOCIATE W/O S PSC CONTRAST MATERIAL SBSQ 77758 [facility] 1 S DISEASE [facility] CARE/DAY 25 CONSULTAN MINUTES SBSQ 90587 [facility] 1 S DISEASE [facility] CARE/DAY 25 CONSULTAN MINUTES SBSQ 87760 [facility] 1 [facility] CARE/DAY 35 PHYSICIAN MINUTES S RADIOLOGI 33098 RADIOLOGY BRANDSER C EXAM 1 GLORIA CHEST 2 ASSOCIATE VIEWS S PSC FRONTAL&L ATERAL SBSQ 25358 [facility] 1 [facility] CARE/DAY [address] [place] [address] RADIOLOGY YOUNG VAN ABDOMINAL 1 REAL ASSOCIATE TIME S PSC W/IMAGE LIMITED SBSQ 20635 [facility] 1 S DISEASE [facility] CARE/DAY 25 CONSULTAN MINUTES SBSQ 41195 [facility] 1 S DISEASE [facility] CARE/DAY 25 CONSULTAN MINUTES ECG 86780 [facility] CHR ROUTINE 1 [place] ECG MED CTR W/LEAST 12 LDS I&R ONLY SBSQ 27470 [facility] 1 GERALDO ER GUILHERME CARE/DAY 35 PHYSICIAN MINUTES S INITIAL 87294 [facility] 1 S DISEASE SUSI CARE/DAY 70 CONSULTAN MINUTES INITIAL 50011 [facility] 1 GERALDO ER GUILHERME CARE/DAY 70 PHYSICIAN MINUTES S PROTHROMB [address] IN TIME 1 GERALDOMIRANDA SERNABETH ADDIE ADDIE ECG [address] ROUTINE 1 GERALDO SERNABETH ECG ADDIE ADDIE W/LEAST 12 LDS TRCG ONLY W/O I&R GROUND A0425 RURAL/MET RURAL/MET MILEAGE 1 RO RO PER AMBULANCE AMBULANCE STATUTE MILE AMB A0426 RURAL/MET RURAL/MET SERVICE 1 RO RO ALS AMBULANCE AMBULANCE NONEMERGE NCY TRANSPORT [place] [address] INFUSION 1 GERALDO CHOW THERAPY/P ADDIE ADDIE ROPHYLAXI S /DX 1ST TO [address] IC 1 GERALDO CASSIDYTH INJECTION ADDIE ADDIE [place] [address] TROPONIN 1 GERALDO CHOW QUANTITAT ADDIE ADDIE JOSE ALFREDO BLOOD [address] COUNT 1 GERALDO CASSIDYTH COMPLETE ADDIE ADDIE AUTO&AUTO DIFRNTL WBC COLLECTIO [address] N VENOUS 1 GERALDO GERALDO BLOOD ADDIE ADDIE VENIPUNCT URE RADIOLOGI 39224 RADIOLOGY BRANDSER C EXAM 1 GLORIA CHEST 2 ASSOCIATE VIEWS S PSC FRONTAL&L ATERAL BASIC [address] METABOLIC 1 GERALDOMIRANDA SERNABETH PANEL ADDIE ADDIE CALCIUM TOTAL RADIOLOGI 14864 RADIOLOGY BRANDSER C 1 GLORIA EXAMINATI ASSOCIATE ON CHEST S OF [place]H [place] FRONTAL NONEMERGE A0100 [facility] 1 COMMUNITY TRANSPORT ACTION ATION; TAXI DAY CARE S5100 [facility] 1 N ACTIVE N ACTIVE ADULT; DAY CENT DAY CENT PER 15 MINUTES DAY CARE S5100 [facility] 1 N ACTIVE N ACTIVE ADULT; DAY CENT DAY CENT PER 15 MINUTES NONEMERGE A0100 [facility] NCY 1 COMMUNITY TRANSPORT ACTION ATION; TAXI OBSERVATI 32797 [facility] ON CARE 1 [facility] LAR DISCHARGE MEDICALCE NTER MANAGEMEN T COMPREHEN 54055 NEW NEW SIVE 1 [facility] METABOLIC MED CTR MED CTR PANEL CREATINE 08820 NEW NEW KINASE MB 1 [facility] FRACTION MED CTR MED CTR ONLY BLOOD 24688 NEW NEW COUNT 1 [facility] COMPLETE MED CTR MED CTR AUTO&AUTO DIFRNTL WBC COLLECTIO 78849 NEW NEW N VENOUS 1 [facility] BLOOD MED [place] [address] NEW NEW TROPONIN 1 [facility] QUANTITAT [place] [address] NEW NEW TROPONIN 1 [facility] QUANTITAT MED CTR MED CTR JOSE ALFREDO COLLECTIO 08099 NEW NEW N VENOUS 1 [facility] BLOOD MED CTR MED CTR VENIPUNCT URE BLOOD 26362 NEW NEW COUNT 1 [facility] COMPLETE MED CTR MED CTR AUTO&AUTO DIFRNTL WBC THERAPEUT 56350 NEW NEW IC 1 [facility] INJECTION MED CTR [place] [address] NEW NEW INFUSION 1 [facility] THERAPY/P MED CTR MED CTR ROPHYLAXI S /DX 1ST TO 1 HR INITIAL 70910 SARAH TODD OBSERVATI 1 [facility] LAR ON MEDICALCE CARE/DAY NTER 50 MINUTES GROUND A0425 [facility] 1 [facility] PER LIFE LIFE STATUTE SQUAD SQUAD MILE ECG 62002 NEW NEW ROUTINE 1 [facility] ECG MED CTR MED CTR W/LEAST 12 LDS TRCG ONLY W/O I&R PROTHROMB 48906 NEW NEW IN TIME 1 [facility] MED CTR MED CTR FIBRIN 65995 NEW NEW DGRADJ 1 [facility] PRODUCTS MED CTR MED CTR D-DIMER QUAL/SEMI KRYSTYNA CREATINE 05659 NEW NEW KINASE MB 1 [facility] FRACTION MED CTR MED CTR ONLY CT THORAX 31309 NEW NEW W/O 1 [facility] CONTRAST MED CTR MED CTR MATERIAL CREATINE 11081 NEW NEW KINASE 1 [facility] TOTAL MED CTR MED CTR HOSPITAL [id number] NEW NEW OBSERVATI 1 [facility] ON [place] [address] NEW NEW INFUSION 1 [facility] THERAPY MED CTR MED CTR PROPHYLAX IS/DX EA HOUR RADIOLOGI 34412 NEW NEW C 1 [facility] EXAMINATI MED CTR MED CTR ON CHEST SING[place]IEW FRONTAL AMB A0422 [facility] MOLINA OXYGEN&O2 [address] [place] [address] SUPPLIES LIFE LIFE LIFE SQUAD SQUAD SUSTAININ G SITUATION BASIC 90659 NEW NEW METABOLIC 1 [facility] PANEL MED CTR MED CTR CALCIUM TOTAL BLOOD 14936 NEW NEW COUNT 1 [facility] SMEAR MED CTR MED CTR MCRSCP W/MNL DIFRNTL WBC COUNT AMB A0427 [facility] M[facility] SERVICE [address] [place] [address] ALS LIFE LIFE EMERGENCY SQUAD SQUAD TRANSPORT LEVEL 1 NONEMERGE A0100 [facility] 1 COMMUNITY TRANSPORT ACTION ATION; TAXI DAY CARE S5100 [facility] 1 N ACTIVE N ACTIVE ADULT; DAY CENT DAY CENT PER 15 MINUTES DAY CARE S5100 [facility] 1 N ACTIVE N ACTIVE ADULT; DAY CENT DAY CENT PER 15 MINUTES NONEMERGE A0100 [facility] 1 COMMUNITY TRANSPORT ACTION ATION; TAXI NONEMERGE A0100 [facility] 1 COMMUNITY TRANSPORT ACTION ATION; TAXI PROTHROMB 16815 COMBINED COMBINED IN TIME 1 PHYSICIAN PHYSICIAN S LA S LA NONEMERGE A0100 [facility] 1 COMMUNITY TRANSPORT ACTION ATION; TAXI O2 CONC 1 E1390 [facility] [place] 1 HOME HOME 85%/>02 MEDICAL MEDICAL CONC AT EQUIPME EQUIPME PRSC FLW RATE PRTBLE E0431 [facility] GASEOUS 1 HOME HOME O2 SYS MEDICAL MEDICAL RENT; EQUIPME EQUIPME FLWMTR HUMIDFR&M ASK DAY CARE S5100 [facility] 1 N ACTIVE N ACTIVE ADULT; DAY CENT DAY CENT PER 15 MINUTES NONEMERGE A0100 [facility] 1 COMMUNITY TRANSPORT ACTION ATION; TAXI NONEMERGE A0100 [facility] 1 COMMUNITY TRANSPORT ACTION ATION; TAXI DAY CARE S5100 [facility] 1 N ACTIVE N ACTIVE ADULT; DAY CENT DAY CENT PER 15 MINUTES DAY CARE S5100 [facility] 1 N ACTIVE N ACTIVE ADULT; DAY CENT DAY CENT PER 15 MINUTES NONEMERGE A0100 [facility] 1 COMMUNITY TRANSPORT ACTION ATION; [place] NONEMERGE A0100 [facility] 1 COMMUNITY TRANSPORT ACTION ATION; [place] DAY CARE S5100 [facility] 1 N ACTIVE N ACTIVE ADULT; DAY CENT DAY CENT PER 15 MINUTES DAY CARE S5100 [facility] 1 N ACTIVE N ACTIVE ADULT; DAY CENT DAY CENT PER 15 MINUTES NONEMERGE A0100 [facility] 1 COMMUNITY TRANSPORT ACTION ATION; [place] NONEMERGE A0100 [facility] 1 COMMUNITY TRANSPORT ACTION ATION; [place] DAY CARE S5100 [facility] 1 N ACTIVE N ACTIVE ADULT; DAY CENT DAY CENT PER 15 MINUTES DAY CARE S5100 [facility] 1 N ACTIVE N ACTIVE ADULT; DAY CENT DAY CENT PER 15 MINUTES NONEMERGE A0100 [facility] 1 COMMUNITY TRANSPORT ACTION ATION; [place] NONEMERGE A0100 [facility] 1 COMMUNITY TRANSPORT ACTION ATION; [place] DAY CARE S5100 [facility] 1 N ACTIVE N ACTIVE ADULT; [...] 1 COMMUNITY TRANSPORT ACTION ATION; [place] COLLECTIO [id number] COMBINED COMBINED N VENOUS 1 PHYSICIAN PHYSICIAN BLOOD Alfredo DIANE LA VENIPUNCT URE PROTHROMB [id number] COMBINED COMBINED IN TIME 1 PHYSICIAN PHYSICIAN Alfredo [place] [facility] C[facility] S5100 [facility] 1 N ACTIVE N ACTIVE ADULT; DAY CENT DAY CENT PER 15 MINUTES DAY CARE S5100 [facility] 1 N ACTIVE N ACTIVE ADULT; DAY CENT DAY CENT PER 15 MINUTES NONEMERGE A0100 [facility] 1 COMMUNITY TRANSPORT ACTION ATION; [place] NONEMERGE A0100 [facility] 1 COMMUNITY TRANSPORT ACTION ATION; [place] DAY CARE S5100 [facility] 1 N ACTIVE N ACTIVE ADULT; DAY CENT DAY CENT PER 15 MINUTES PROTHROMB [id number] COMBINED COMBINED IN TIME 1 PHYSICIAN PHYSICIAN Alfredo [place] [facility] S5100 [facility] 1 N ACTIVE N ACTIVE ADULT; DAY CENT DAY CENT PER 15 MINUTES NONEMERGE A0100 [facility] 1 COMMUNITY TRANSPORT ACTION ATION; [place] NONEMERGE A0100 [facility] [facility] NC[facility] 1 COMMUNITY TRANSPORT ACTION ATION; TAXI DAY CARE S5100 [facility] 1 N ACTIVE N ACTIVE ADULT; DAY CENT DAY CENT PER 15 MINUTES DAY CARE S5100 [facility] 1 N ACTIVE N ACTIVE ADULT; DAY CENT DAY CENT PER 15 MINUTES ADMINISTR G0008 ASHISH HINOJOSA ATION OF [address] [place] [address] [facility] CENTER VACCINE NONEMERGE A0100 [facility] 1 COMMUNITY TRANSPORT ACTION ATION; TAXI INFLUENZA Q2038 ASHISH ASHISH VACC 1 [facility] SPLIT [facility] VIRUS 3 CENTER CENTER YRS & > IM FLUZONE NONEMERGE A0100 [facility] 1 COMMUNITY TRANSPORT ACTION ATION; [facility] DAY CARE S5100 [facility] 1 N ACTIVE N ACTIVE ADULT; DAY CENT DAY CENT PER 15 MINUTES DAY CARE S5100 [facility] 1 N ACTIVE N ACTIVE ADULT; DAY CENT DAY CENT PER 15 MINUTES NONEMERGE A0100 [facility] 1 COMMUNITY TRANSPORT ACTION ATION; TAXI NONEMERGE A0100 [facility] UTY 1 COMMUNITY TRANSPORT ACTION ATION; [facility] DAY CARE S5100 [facility] 1 N ACTIVE N ACTIVE ADULT; DAY CENT DAY CENT PER 15 MINUTES DAY CARE S5100 [facility] 1 N ACTIVE N ACTIVE ADULT; DAY CENT DAY CENT PER 15 MINUTES NONEMERGE A0100 [facility] 1 COMMUNITY TRANSPORT ACTION ATION; TAXI NONEMERGE A0100 [facility] UTY 1 COMMUNITY TRANSPORT ACTION ATION; T[facility]I DAY CARE S5100 [facility] 1 N ACTIVE N ACTIVE ADULT; DAY CENT DAY CENT PER 15 MINUTES PRTBLE E0431 JANAE CARDOSO GASEOUS 1 HOME HOME O2 SYS MEDICAL MEDICAL RENT; EQUIPME EQUIPME FLWMTR HUMIDFR&M ASK O2 CONC 1 E1390 JANAE CARDOSO DEL PORT 1 HOME HOME 85%/>02 MEDICAL MEDICAL CONC AT EQUIPME EQUIPME PRSC FLW RATE NONEMERGE A0100 [facility] 1 COMMUNITY TRANSPORT ACTION ATION; TAXI DEBRIDEME 12700 [facility] REKHA NT NAIL 1 FOOT & ANY ANKLE CE METHOD 1-5 DAY CARE S5100 [facility] 1 N ACTIVE N ACTIVE ADULT; DAY CENT DAY CENT PER [address] [place] MAR ROUTINE 1 [place] ECG W/LEAST PHYSICIAN 12 LDS S I&R ONLY NATRIURET [address] IC 1 [place] GERALDO PEPTIDE ADDIE ADDIE RADIOLOGI [address] C EXAM 1 GERALDO GERALDO CHEST 2 ADDIE ADDIE VIEWS FRONTAL&L ATERAL COMPREHEN [address] [facility] SIVE 1 [facility] METABOLIC ADDIE ADDIE PANEL COLLECTIO [address] N VENOUS 1 [facility] BLOOD ADDIE ADDIE VENIPUNCT URE BLOOD [address] COUNT 1 [facility] COM[facility]TE ADDIE ADDIE AUTO&[place] [address] TROPONIN 1 [place] GERALDO QUANTITAT ADDIE ADDIE JOSE ALFREDO PRESSURIZ [address] ED/NONPRE 1 GERALDO GERALDO SSURIZED ADDIE ADDIE INHALATIO N TREATMENT PROTHROMB [address] IN TIME 1 [facility] ADDIE ADDIE DEMO&/JOO [address] L OF PT 1 GERALDO GERALDO UTILIZ ADDIE ADDIE AERSL GEN/NEB/I NHLR/IP THER [address] PROPH/DX 1 GERALDO GERALDO NJX IV ADDIE ADDIE PUSH SINGLE/1S T SBST/DRUG ECG [address] ROUTINE 1 [facility] ECG ADDIE ADDIE W/LEAST 12 LDS TRCG ONLY W/O I&R THROMBOPL [address] ASTIN 1 [facility] TIME ADDIE ADDIE PARTIAL PLASMA/WH OLE BLOOD NONEMERGE A0100 [facility]-C[facility] NCY 1 COMMUNITY TRANSPORT ACTION ATION; TAXI DAY CARE S5100 [facility] 1 N ACTIVE N ACTIVE ADULT; DAY CENT DAY CENT PER 15 MINUTES DAY CARE S5100 [facility] 1 N ACTIVE N ACTIVE ADULT; DAY CENT DAY CENT PER 15 MINUTES NONEMERGE A0100 [facility] 1 COMMUNITY TRANSPORT ACTION ATION; TAXI NONEMERGE A0100 [facility] 1 COMMUNITY TRANSPORT ACTION ATION; TAXI NONEMERGE A0100 [facility] 1 COMMUNITY TRANSPORT ACTION ATION; TAXI NONEMERGE A0100 [facility] 1 COMMUNITY TRANSPORT ACTION ATION; TAXI NONEMERGE A0100 [facility] 1 COMMUNITY TRANSPORT ACTION ATION; TAXI NONEMERGE A0100 [facility] 1 COMMUNITY TRANSPORT ACTION ATION; [facility]AXI DAY CARE S5100 [facility] 1 N ACTIVE N ACTIVE ADULT; DAY CENT DAY CENT PER 15 MINUTES DAY CARE S5100 [facility] 1 N ACTIVE N ACTIVE ADULT; DAY CENT DAY CENT PER 15 MINUTES NONEMERGE A0100 [facility] UTY 1 COMMUNITY TRANSPORT ACTION ATION; TAXI NONEMERGE A0100 [facility] 1 COMMUNITY TRANSPORT ACTION ATION; TAXI DAY CARE S5100 [facility] 1 N ACTIVE N ACTIVE ADULT; DAY CENT DAY CENT PER 15 MINUTES DAY CARE S5100 [facility] 1 N ACTIVE N ACTIVE ADULT; DAY CENT DAY CENT PER 15 MINUTES PROTHROMB 05469 COMBINED COMBINED IN TIME 1 PHYSICIAN PHYSICIAN S LA S LA NONEMERGE A0100 [facility] 1 COMMUNITY TRANSPORT ACTION ATION; TAXI NONEMERGE A0100 [facility] 1 COMMUNITY TRANSPORT ACTION ATION; [facility]AXI DAY CARE S5100 [facility] 1 N ACTIVE N ACTIVE ADULT; DAY CENT DAY CENT PER 15 MINUTES DAY CARE S5100 [facility] 1 N ACTIVE N ACTIVE ADULT; [...] RENT; EQUIPME EQUIPME FLWMTR HUMIDFR&M ASK BLOOD [address] COUNT 1 GERALDO GERALDO COMPLETE AUTOMATED MEDICALCE MEDICALCE NTER NTER NONINVASI [address] VE 1 GERALDO GERALDO EAR/PULSE OXIMETRY MEDICALCE MEDICALCE MULTIPLE NTER NTER DETER PROTHROMB [address] IN TIME 1 GERALDO GERALDO MEDICALCE MEDICALCE NTER NTER INJECTION J1644 ST ST HEPARIN 1 GERALDO GERALDO SODIUM PER 1000 MEDICALCE MEDICALCE UNITS NTER NTER HEPARIN [address] [place] 1 GERALDO GERALDO MEDICALCE MEDICALCE NTER NTER SBSQ 74964 [facility] 1 YIN [place]OV[place] CARE/DAY GASTROENT 25 EROLOGYAS MINUTES INJECTION J1644 ST [facility] HEPAR[place] 1 GERALDO GERALDO SODIUM PER 1000 MEDICALCE MEDICALCE UNITS NTER NTER HEPARIN [address] [place] 1 GERALDO GERALDO MEDICALCE MEDICALCE NTER NTER BASIC [address] METABOLIC 1 GERALDO GERALDO PANEL CALCIUM MEDICALCE MEDICALCE TOTAL NTER NTER PROTHROMB [address] ST [address] IN TIME 1 GERALDO GERALDO MEDICALCE MEDICALCE NTER NTER NONINVASI [address] VE 1 GERALDO GERALDO EAR/PULSE OXIMETRY MEDICALCE MEDICALCE MULTIPLE NTER NTER DETER BLOOD [address] COUNT 1 GERALDO GERALDO COMPLETE AUTOMATED MEDICALCE MEDICALCE NTER NTER RADEX 13267 RADIOLOGY ROEBKER SHOULDER 1 JAM COMPLETE ASSOCIATE MINIMUM 2 S PSC VIEWS EGD 29575 [facility] TRANSORAL 1 YIN [place] BIOPSY GASTROENT SINGLE/MU EROLOGYAS LTIPLE DILATION 20228 [facility] ESOPH 1 YIN [place] UNGUIDED GASTROENT SOUND/DINA EROLOGYAS GIE 1/MULT PASS COLONOSCO 28201 [facility] PY FLX DX 1 YIN [place] W/COLLJ GASTROENT SPEC WHEN EROLOGYAS PFRMD BLOOD [address] COUNT 1 GERALDO GERALDO COMPLETE AUTOMATED [place]ICAL[place] [address] ST OSTERHAGE SURG 1 [facility] PATHOLOGY MED CTR GROSS&KIRILL ROSCOPIC EXAM PROTHROMB 0[address] ST [address] IN TIME 1 GERALDO GERALDO MEDICALCE MEDICALCE NTER NTER INJECTION J2250 ST ST 1 GERALDO GERALDO MIDAZOLAM HCL PER MEDICALCE MEDICALCE 1 MG NTER NTER INJECTION J2270 ST ST MORPHINE 1 GERALDO GERALDO SULFATE UP TO 10 MEDICALCE MEDICALCE MG NTER NTER INJECTION J2405 ST ST 1 GERALDO GERALDO ONDANSETR ON HCL MEDICALCE MEDICALCE PER 1 MG NTER NTER BASIC [address] METABOLIC 1 GERALDO GERALDO PANEL CALCIUM MEDICALCE MEDICALCE TOTAL NTER NTER HEPARIN [address] [place] 1 GERALDO GERALDO MEDICALCE [...] 1 MEDICALCE MEDICALCE MG NTER NTER HEPARIN [address] [place] 1 GERALDO GERALDO MEDICALCE MEDICALCE NTER NTER SBSQ 69609 [facility] 1 KEYLA CARE/DAY GASTROENT 25 EROLOGY A MINUTES PROTHROMB 82[address] ST [address] IN TIME 1 GERALDO GERALDO MEDICALCE MEDICALCE NTER NTER NONINVASI [address] VE 1 GERALDO GERALDO EAR/PULSE OXIMETRY MEDICALCE MEDICALCE MULTIPLE NTER NTER DETER INJECTION J2405 ST ST 1 GERALDO GERALDO ONDANSETR ON HCL MEDICALCE MEDICALCE PER 1 MG NTER NTER BLOOD [address] COUNT 1 GERALDO GERALDO COMPLETE AUTOMATED MEDICALCE MEDICALCE NTER NTER BLOOD [address] COUNT 1 GERALDO GERALDO COMPLETE AUTOMATED MEDICALCE MEDICALCE NTER NTER INJECTION J2405 ST ST 1 GERALDO GERALDO ONDANSETR ON HCL MEDICALCE MEDICALCE PER 1 MG NTER NTER NONINVASI 63939 ST ST VE 1 GERALDO GERALDO EAR/PULSE OXIMETRY MEDICALCE MEDICALCE MULTIPLE NTER NTER DETER PROTHROMB [address] IN TIME 1 GERALDO GERALDO MEDICALCE MEDICALCE NTER NTER BLOOD [address] OCCULT 1 GERALDO GERADLO PEROXIDAS E ACTV MEDICALCE MEDICALCE QUAL NTER NTER FECES 1-3 SPEC SBSQ 31741 [facility] 1 CARE/DAY GASTROENT 25 EROLOGYAS MINUTES INJECTION J3430 ST ST 1 GERALDO GERALDO PHYTONADI ONE PER 1 MEDICALCE MEDICALCE MG NTER NTER BASIC [address] METABOLIC 1 GERALDO GERALDO PANEL CALCIUM MEDICALCE MEDICALCE TOTAL NTER NTER INITIAL 31710 [facility] 1 CARE/DAY GASTROENT 30 EROLOGYAS MINUTES CULTURE [address] BACTERIAL 1 GERALDO GERALDO QUANTTATI MEDICALCE MEDICALCE VE COLONY NTER NTER COUNT URINE NONEMERGE A0100 [facility] NCY 1 COMMUNITY TRANSPORT ACTION ATION; TAXI URNLS DIP [address] 1 GERALDO GERALDO STICK/TAB LET MEDICALCE MEDICALCE REAGENT NTER NTER AUTO MICROSCOP Y PROTHROMB [address] IN TIME 1 GERALDO GERALDO MEDICALCE MEDICALCE NTER NTER INJECTION J2270 ST ST MORPHINE 1 GERALDO GERALDO SULFATE UP TO 10 MEDICALCE MEDICALCE MG NTER NTER ECG [address] ROUTINE 1 GERALDO GERALDO ECG W/LEAST MEDICALCE MEDICALCE 12 LDS NTER NTER TRCG ONLY W/O I&R NONINVASI [address] VE 1 GERALDO GERALDO EAR/PULSE OXIMETRY MEDICALCE MEDICALCE MULTIPLE NTER NTER DETER ANTIBODY [address] HELICOBAC [address] PYLORI MEDICALCE MEDICALCE NTER NTER INJECTION J2405 ST ST 1 GERALDO GERALDO ONDANSETR ON HCL MEDICALCE MEDICALCE PER 1 MG NTER NTER BLOOD [address] COUNT 1 GERALDO GERALDO COMPLETE AUTOMATED MEDICALCE MEDICALCE NTER NTER MYOCARDIA [address] L SPECT 1 GERALDO GERALDO MULTIPLE STUDIES MEDICALCE MEDICALCE NTER NTER INJECTION J2405 ST ST 1 GERALDO GERALDO ONDANSETR ON HCL MEDICALCE MEDICALCE PER 1 MG NTER NTER BLOOD 045[address] ST [address] COUNT 1 GERALDO GERALDO COMPLETE AUTOMATED MEDICALCE MEDICALCE NTER NTER NONINVASI [address] VE 1 GERALDO GERALDO EAR/PULSE OXIMETRY MEDICALCE MEDICALCE MULTIPLE NTER NTER DETER ECG [address] ROUTINE 1 GERALDO GERALDO ECG W/LEAST MEDICALCE MEDICALCE 12 LDS NTER NTER TRCG ONLY W/O I&R CV STRS 08-16-[address] TST 1 GERALDO CHOW XERS&/OR RX CONT MEDICALCE MEDICALCE ECG TRCG NTER NTER ONLY PROTHROMB [address] IN TIME 1 GERALDO CHOW MEDICALCE MEDICALCE NTER NTER PPSV23 [address] VACCINE 2 1 GERALDO CHOW YRS OR OLDER FOR MEDICALCE MEDICALCE SUBQ/IM NTER NTER USE ECHO [address] TTHRC R-T 1 GERALDO CHOW 2D W/WOM-MOD MEDICALCE MEDICALCE E COMPL NTER NTER SPEC&COLR D LIPID [address] PANEL 1 GERALDO CHOW MEDICALCE MEDICALCE NTER NTER TECHNETIU A9502 ST ST M TC-99M 1 GERALDO CRENSHAWZABETH TETROFOSM IN DX PER MEDICALCE MEDICALCE STUDY NTER NTER DOSE RHYTHM 57815 ST SIGIFREDO ECG 1-3 1 GERALDO DEL [...] AMBULANCE AMBULANCE EMERGENCY TRANSPORT LEVEL [address] C 1 GERALDO CHOW EXAMINATI ADDIE ADDIE ON CHEST SINGLE VIEW FRONTAL RHYTHM 57156 ST WADE ECG 1-3 1 GERALDO [facility] INTERPRET ATION & REPRT ON BASIC [address] METABOLIC 1 GERALDO CHOW PANEL ADDIE ADDIE CALCIUM TOTAL THROMBOPL [address] ASTIN 1 GERALDO CHOW TIME PARTIAL MEDICALCE MEDICALCE PLASMA/[place] [address] MAGNESIUM 1 GERALDO CRENSHAWZABETH MEDICALCE MEDICALCE NTER NTER DRUG [address] [place] 1 GERALDO GERALDO VALPROIC DIPROPYLA MEDICALCE MEDICALCE CETIC NTER NTER ACID TOTAL HEPATIC [address] FUNCTION 1 GERALDO GERALDO PANEL MEDICALCE MEDICALCE NTER NTER PROTHROMB [address] IN TIME 1 GERALDO CHOW ADDIE ADDIE THER [address] PROPH/DX 1 GERALDO CHOW NJX IV ADDIE ADDIE PUSH SINGLE/1S T SBST/DRUG INITIAL 61833 [facility] 1 [facility] [address] ROUTINE 1 GERALDO CHOW ECG ADDIE ADDIE W/LEAST 12 LDS TRCG ONLY W/O I&R INJECTION J2270 ST ST MORPHINE 1 GERALDO CHOW SULFATE UP TO 10 MEDICALCE MEDICALCE MG NTER NTER GROUND A0425 RURAL/MET RURAL/MET MILEAGE [address] RO RO PER AMBULANCE AMBULANCE STATUTE MILE NONINVASI [address] VE 1 GERALDO CHOW EAR/PULSE OXIMETRY MEDICALCE MEDICAL[place] [address] THYROID 1 GERALDO CHOW STIMULATI NG MEDICALCE MEDICALCE HORMONE NTER NTER TSH INJECTION J2405 ST ST 1 GERALDO CHOW ONDANSETR ON HCL MEDICALCE MEDICALCE PER 1 [place] [address] TROPONIN 1 GERALDO CHOW QUANTITAT JOSE ALFREDO MEDICALCE MEDICALCE NTER NTER BLOOD [address] COUNT 1 GERALDO CHOW COMPLETE ADDIE ADDIE AUTO&AUTO DIFRNTL WBC COLLECTIO [address] N VENOUS 1 GERALDO CASSIDYTH BLOOD ADDIE ADDIE VENIPUNCT URE DAY CARE S5100 [facility] 1 N ACTIVE N ACTIVE ADULT; DAY CENT DAY CENT PER 15 MINUTES NONEMERGE A0100 [facility] UTY 1 COMMUNITY TRANSPORT ACTION ATION; TAXI NONEMERGE A0100 [facility] 1 COMMUNITY TRANSPORT ACTION ATION; TAXI DAY CARE S5100 [facility] 1 N ACTIVE N ACTIVE ADULT; DAY CENT DAY CENT PER 15 MINUTES DAY CARE S5100 [facility] 1 N ACTIVE N ACTIVE ADULT; DAY CENT DAY CENT PER 15 MINUTES NONEMERGE A0100 [facility] U[facility] 1 COMMUNITY TRANSPORT ACTION ATION; TAXI NONEMERGE A0100 [facility] 1 COMMUNITY TRANSPORT ACTION ATION; TAXI NONEMERGE A0100 [facility] 1 COMMUNITY TRANSPORT ACTION ATION; TAXI DAY CARE S5100 [facility] 1 N ACTIVE N ACTIVE ADULT; DAY CENT DAY CENT PER 15 MINUTES DAY CARE S5100 [facility] 1 N ACTIVE N ACTIVE ADULT; DAY CENT DAY CENT PER 15 MINUTES NONEMERGE A0100 [facility] 1 COMMUNITY TRANSPORT ACTION ATION; TAXI NONEMERGE A0100 [facility] 1 COMMUNITY TRANSPORT ACTION ATION; TAXI DAY CARE S5100 [facility] 1 N ACTIVE N ACTIVE ADULT; DAY CENT DAY CENT PER 15 MINUTES DAY CARE S5100 [facility] 1 N ACTIVE N ACTIVE ADULT; DAY CENT DAY CENT PER 15 MINUTES PRTBLE E0431 JANAE CARDOSO GASEOUS 1 HOME HOME O2 SYS MEDICAL MEDICAL RENT; EQUIPME EQUIPME FLWMTR HUMIDFR&M ASK NONEMERGE A0100 [facility] 1 COMMUNITY TRANSPORT ACTION ATION; TAXI O2 CONC 1 E1390 JANAE CARDOSO DEL PORT 1 HOME HOME 85%/>02 MEDICAL MEDICAL CONC AT EQUIPME EQUIPME PRSC FLW RATE PROTHROMB 90430 COMBINED COMBINED IN TIME 1 PHYSICIAN PHYSICIAN S LA S LA DAY CARE S5100 [facility] 1 N ACTIVE N ACTIVE ADULT; DAY CENT DAY CENT PER 15 MINUTES NONEMERGE A0100 [facility] 1 COMMUNITY TRANSPORT ACTION ATION; TAXI NONEMERGE A0100 [facility] 1 COMMUNITY TRANSPORT ACTION ATION; TAXI DAY CARE S5100 [facility] 1 N ACTIVE N ACTIVE ADULT; DAY CENT DAY CENT PER 15 MINUTES DAY CARE S5100 [facility] 1 N ACTIVE N ACTIVE ADULT; DAY CENT DAY CENT PER 15 MINUTES NONEMERGE A0100 [facility] 1 COMMUNITY TRANSPORT ACTION ATION; TAXI NONEMERGE A0100 [facility] 1 COMMUNITY TRANSPORT ACTION ATION; TAXI DAY CARE S5100 [facility] 1 N ACTIVE N ACTIVE ADULT; DAY CENT DAY CENT PER 15 MINUTES DAY CARE S5100 [facility] 1 N ACTIVE N ACTIVE ADULT; DAY CENT DAY CENT PER 15 MINUTES NONEMERGE A0100 [facility] 1 COMMUNITY TRANSPORT ACTION ATION; TAXI NONEMERGE A0100 [facility] 1 COMMUNITY TRANSPORT ACTION ATION; TAXI DAY CARE S5100 [facility] 1 N ACTIVE N ACTIVE ADULT; DAY CENT DAY CENT PER [address] [place] [address] MAGNESIUM 1 GERALDOMIRANDA [place] [address] RADIOLOGY DENISE HEAD/BRAI 1 ARON N W/O ASSOCIATE CONTRAST S PSC MATERIAL PROTHROMB [address] IN TIME 1 GERALDO GERALDO [place] [address] PHOSPHORU 1 GERALDO CHOW S INORGANIC [place] [address] TROPONIN 1 GERALDOKUMAR CHOW QUANTIT JOSE ALFREDO MEDICALCE MEDICALCE NTER NTER BLOOD [address] COUNT 1 GERALDO GERALDO COMPLETE AUTO&AUTO MEDICALCE MEDICALCE DIFRNTL NTER NTER WBC PRESSURIZ [address] ED/NONPRE 1 GERALDO GERALDO SSURIZED INHALATIO MEDICALCE MEDICALCE N NTER NTER TREATMENT NONINVASI [address] VE 1 GERALDO GERALDO EAR/PULSE OXIMETRY MEDICALCE MEDICALCE MULTIPLE NTER NTER DETER OBSERVATI 15196 [facility] ON CARE 1 GERALDO JAYLYN DISCHARGE MED CTR MANAGEMEN T SBSQ 88891 [facility] 1 GERALDO NEREIDA CARE/DAY 25 PHYSICIAN MINUTES S BASIC [address] METABOLIC 1 GERALDO CHOW PANEL CALCIUM MEDICALCE MEDICALCE TOTAL NTER NTER RHYTHM 20486 [facility] ECG 1-3 1 GERALDO JAYLYN [facility] INTERPRET ATION & REPRT ON RHYTHM 85956 [facility] ECG 1-3 1 GERALDO JAYLYN [facility] INTERPRET ATION & REPRT ON BASIC [address] METABOLIC 1 GERALDO CHOW PANEL ADDIE ADDIE CALCIUM TOTAL RADIOLOGI 46339 RADIOLOGY HONG C 1 JAM EXAMINATI ASSOCIATE ON CHEST S PSC SINGLE VIEW FRONTAL INITIAL 26457 [facility] 1 GERALDO JAYLYN CARE/DAY MED CTR [address] IC 1 GERALDO CHOW INJECTION IV PUSH MEDICALCE MEDICALCE [place] [address] INFUSION 1 GERALDO CHOW HYDRATION ADDIE ADDIE INITIAL 31 MIN-[address] ED/NONPRE 1 GERALDOMIRANDA CHOW SSURIZED INHALATIO MEDICALCE MEDICAL[place] [address] THYROID 1 GERALDOMIRANDA CHOW STIMULATI NG MEDICALCE MEDICALCE HORMONE NTER NTER TSH AMB A0426 RURAL/MET RURAL/MET SERVICE 1 RO RO ALS AMBULANCE AMBULANCE NONEMERGE NCY TRANSPORT LEVEL [address] N VENOUS 1 GERALDO CHOW BLOOD ADDIE ADDIE VENIPUNCT URE BLOOD [address] COUNT 1 GERALDO CHOW COMPLETE ADDIE ADDIE AUTO&[place] [address] FREE 1 GERALDO CHOW THYROXINE MEDICAL[place] [address] TROPONIN 1 GERALDO CHOW [place]IT[place] [address] RADIOLOGY DENISE ANGIOGRAP 1 ARON HY ASSOCIATE ABDOMEN S PSC W/CONTRAS T/NONCONT RAST FIBRIN [address] DGRADJ 1 GERALDO CHOW PRODUCTS D-DIMER MEDICALCE MEDICALCE QUANTITAT NTER NTER JOSE ALFREDO PROTHROMB [address] IN TIME 1 GERALDO CHOW ADDIE ADDIE THER [address] PROPH/DX 1 GERALDO CHOW NJX IV PUSH MEDICALCE MEDICALCE SINGLE/1S NTER NTER T SBST/DRUG DEMO&/JOO [address] ST ST L OF PT 1 GERALDO CHOW UTILIZ AERSL MEDICALCE MEDICALCE GEN/NEB/I NTER NTER NHLR/IP GROUND A0425 RURAL/MET RURAL/MET MILEAGE 1 RO RO PER AMBULANCE AMBULANCE STATUTE MILE ECG [address] ROUTINE 1 GERALDO CHOW ECG ADDIE ADDIE W/LEAST 12 LDS TRCG ONLY W/O I&[place] [address] RADIOLOGY DENISE ANGIOGRAP 1 ARON HY CHEST ASSOCIATE W/CONTRAS S PSC T/NONCONT [facility] OBSERVATI 1 GERALDO CHOW ON SERVICE MEDICALCE MEDICALCE PER HOUR NTER NTER DIRECT G0379 ST ST ADMISSION 1 GERALDO CASSIDYTH [facility] MEDICALCE MEDICALCE OBSERV NTER NTER CARE GASES 44918 [facility] BLOOD PH 1 GERALDO CHOW DIRECT WILLEM XCPT MEDICALCE MEDICALCE PULSE NTER NTER OXIMITRY ECHO 93693 [facility] TTHRC R-T 1 GERALDO CHOW 2D W/WOM-MOD MEDICALCE MEDICALCE E COMPL NTER NTER SPEC&COLR D DAY CARE S5100 [facility] 1 N ACTIVE N ACTIVE ADULT; DAY CENT DAY CENT PER 15 MINUTES NONEMERGE A0100 [facility] 1 COMMUNITY TRANSPORT ACTION ATION; TAXI NONEMERGE A0100 [facility] UTY 1 COMMUNITY TRANSPORT ACTION ATION; TAXI DAY CARE S5100 [facility] 1 N ACTIVE N ACTIVE ADULT; DAY CENT DAY CENT PER 15 MINUTES DAY CARE S5100 [facility] 1 N ACTIVE N ACTIVE ADULT; DAY CENT DAY CENT PER 15 MINUTES NONEMERGE A0100 [facility] UTY 1 COMMUNITY TRANSPORT ACTION ATION; TAXI NONEMERGE A0100 [facility] UTY 1 COMMUNITY TRANSPORT ACTION ATION; TAXI DAY CARE S5100 [facility] 1 N ACTIVE N ACTIVE ADULT; DAY CENT DAY CENT PER 15 MINUTES PRTBLE E0431 JANAE CARDOSO GASEOUS 1 HOME MED HOME MED O2 SYS EQUIP. L EQUIP. L RENT; FLWMTR HUMIDFR&M ASK O2 CONC 1 E1390 JANAE CARDOSO DEL PORT 1 HOME MED HOME MED 85%/>02 EQUIP. L EQUIP. L CONC AT [facility] FLW RATE NONEMERGE A0100 [facility] NCY 1 COMMUNITY TRANSPORT ACTION ATION; TAXI DAY CARE S5100 [facility] 1 N ACTIVE N ACTIVE ADULT; DAY CENT DAY CENT PER 15 MINUTES DAY CARE S5100 [facility] 1 N ACTIVE N ACTIVE ADULT; DAY CENT DAY CENT PER 15 MINUTES NONEMERGE A0100 [facility] UTY 1 COMMUNITY TRANSPORT ACTION ATION; TAXI NONEMERGE A0100 [facility] NCY 1 COMMUNITY TRANSPORT ACTION ATION; [place] DAY CARE S5100 [facility] 1 N ACTIVE N ACTIVE ADULT; DAY CENT DAY CENT PER 15 MINUTES DAY CARE S5100 [facility] 1 N ACTIVE N ACTIVE ADULT; DAY CENT DAY CENT PER 15 MINUTES NONEMERGE A0100 [facility] NCY 1 COMMUNITY TRANSPORT ACTION ATION; TAXI NONEMERGE A0100 [facility] NCY 1 COMMUNITY TRANSPORT ACTION ATION; [place] DAY CARE S5100 [facility] 1 N ACTIVE N ACTIVE ADULT; DAY CENT DAY CENT PER 15 MINUTES DAY CARE S5100 [facility] 1 N ACTIVE N ACTIVE ADULT; DAY CENT DAY CENT PER 15 MINUTES NONEMERGE A0100 [facility] NCY 1 COMMUNITY TRANSPORT ACTION ATION; TAXI NONEMERGE A0100 [facility] NCY 1 COMMUNITY TRANSPORT ACTION ATION; [place] DAY CARE S5100 [facility] 1 N ACTIVE N ACTIVE ADULT; DAY CENT DAY CENT PER 15 MINUTES DAY CARE S5100 [facility] 1 N ACTIVE N ACTIVE ADULT; DAY CENT DAY CENT PER 15 MINUTES NONEMERGE A0100 [facility] NCY 1 COMMUNITY TRANSPORT ACTION ATION; TAXI NONEMERGE A0100 [facility] NCY 1 COMMUNITY TRANSPORT ACTION ATION; TAXI NONEMERGE A0100 [facility] NCY 1 COMMUNITY TRANSPORT ACTION ATION; [place] DAY CARE S5100 [facility] 1 N ACTIVE N ACTIVE ADULT; DAY CENT DAY CENT PER 15 MINUTES DAY CARE S5100 [facility] 1 N ACTIVE N ACTIVE ADULT; DAY CENT DAY CENT PER 15 MINUTES NONEMERGE A0100 [facility] NC[facility] 1 COMMUNITY TRANSPORT ACTION ATION; TAXI NONEMERGE A0100 [facility] NCY 1 COMMUNITY TRANSPORT ACTION ATION; [place] DAY CARE S5100 [facility] 1 N ACTIVE N ACTIVE ADULT; DAY CENT DAY CENT PER 15 MINUTES PRTBLE [id number] [facility] 1 HOME MED HOME MED O2 SYS EQUIP. L EQUIP. L RENT; FLWMTR HUMIDFR&M ASK O2 CONC 1 E1390 [facility] [place] 1 HOME MED HOME MED 85%/>02 EQUIP. L EQUIP. L CONC AT [facility] FLW RATE NONEMERGE A0100 [facility]I-[facility] NCY 1 COMMUNITY TRANSPORT ACTION ATION; TAXI DAY CARE S5100 [facility] 1 N ACTIVE N ACTIVE ADULT; DAY CENT DAY CENT PER 15 MINUTES DAY CARE S5100 [facility] 1 N ACTIVE N ACTIVE ADULT; DAY CENT DAY CENT PER 15 MINUTES NONEMERGE A0100 [facility] 1 COMMUNITY TRANSPORT ACTION ATION; TAXI NONEMERGE A0100 [facility] NCY 1 COMMUNITY TRANSPORT ACTION ATION; TAXI DAY CARE S5100 [facility] 1 N ACTIVE N ACTIVE ADULT; DAY CENT DAY CENT PER 15 MINUTES DAY CARE S5100 [facility] 1 N ACTIVE N ACTIVE ADULT; DAY CENT DAY CENT PER 15 MINUTES NONEMERGE A0100 [facility] NCY 1 COMMUNITY TRANSPORT ACTION ATION; TAXI NONEMERGE A0100 [facility] 1 COMMUNITY TRANSPORT ACTION ATION; TAXI PROTHROMB 23961 [facility] IN TIME 1 [facility] PROTHROMB 28006 [facility] IN TIME 1 [facility] DRUG 20348 [facility] BENAVIDES ASSAY 1 [facility] DIPROPYLA CETIC ACID TOTAL BASIC 30791 [facility] BENAV[facility]ES METABOLIC 1 [facility] CALCIUM TOTAL NONEMERGE A0100 [facility]-C[facility] NCY 1 COMMUNITY TRANSPORT ACTION ATION; TAXI DAY CARE S5100 [facility] 1 N ACTIVE N ACTIVE ADULT; DAY CENT DAY CENT PER 15 MINUTES PRTBLE E0431 JANAE CARDOSO GASEOUS 1 HOME MED HOME MED O2 SYS EQUIP. L EQUIP. L RENT; FLWMTR HUMIDFR&M [facility] 00260 [facility] DISCHARGE 1 LACEY LACEY DAY MANAGEMEN T > 30 MIN O2 CONC 1 E1390 [facility] CARDOSO DEL PORT 1 HOME MED HOME MED 85%/>02 EQUIP. L EQUIP. L CONC AT [facility] FLW RATE SBSQ 80357 [facility] 1 LACEY LACEY CARE/DAY 25 MINUTES SBSQ 48779 [facility] 1 LACEY LACEY CARE/DAY 25 MINUTES SBSQ 51437 [facility] W[facility] 1 LACEY LACEY CARE/DAY 25 [place] [address] [facility] ABDOMINAL 1 EIDER SUSIE REAL RADIOLOGY TIME ASSOCIAT W/IMAGE DOCUMENTA TION ECG 94246 [facility] ROUTINE 1 LACEY LACEY ECG W/LEAST 12 LDS I&R ONLY ECHO 08117 LEE GALVIN GALVIN LEE TTHRC R-T 1 2D CONSULTIN W/WOM-MOD G SRV E COMPL SPEC&COLR D SBSQ 42382 [facility] 1 LACEY LACEY CARE/DAY 25 MINUTES SBSQ 79183 [facility] 1 LACEY LACEY CARE/DAY 35 MINUTES SBSQ 45887 [facility] W[facility] 1 LACEY LACEY CARE/[place] [address] [place] [address] [facility] ABDOMEN & 1 EIDER SUSIE PELVIS RADIOLOGY W/O ASSOCIAT CONTRAST MATERIAL SBSQ 39044 [facility] W[facility] 1 LACEY LACEY CARE/DAY 35 MINUTES CULTURE 53189 [facility] BACTERIAL 1 CO CO BLOOD [facility] AEROBIC W/[place] [address] [facility] BE[facility]ES INFUSION 1 CO CO HYDRATION [facility] INITIAL 31 MIN-1 [place] [address] [facility] INFUSION 1 CO CO THERAPY/P HOSPITAL HOSPITAL ROPHYLAXI S /DX 1ST [place] 1 [place] [address] [facility] TROPONIN 1 CO CO QUANTITAT [facility] JOSE ALFREDO BLOOD 71093 [facility] COUNT 1 CO CO COMPLETE [facility] AUTO&AUTO DIFRNTL WBC FIBRIN 64210 [facility] DGRADJ 1 CO CO PRODUCTS [facility] HOSPITAL D-DIMER QUAL/SEMI KRYSTYNA PROTHROMB 65150 [facility] BENAVIDES IN TIME 1 [facility] HOSPITAL THER 97236 [facility] BE[facility] PROPH/DX 1 CO CO NJX IV [facility] PUSH SINGLE/1S T SBST/DRUG ECG 80834 [facility] BE[facility]ES ROUTINE 1 CO CO ECG [facility] W/LEAST 12 LDS TRCG ONLY W/O I&R ECG 95780 [facility] ROUTINE 1 LACEY LACEY ECG W/LEAST 12 LDS I&R ONLY MYOGLOBIN 88277 [facility] 1 [facility] HOSPITAL CREATINE 31727 [facility] BENAV[facility] KINASE MB 1 CO CO FRACTION [facility] HOSPITAL ONLY CREATINE 10483 [facility] BE[facility]VIDES KINASE 1 [facility] CRITICAL 68807 [facility] BE[facility] CARE 1 CO CO ILL/INJUR HOSPITAL HOSPITAL ED PATIENT INIT 30-74 MIN BLOOD 08370 [facility] BE[facility] COUNT 1 CO CO SMEAR [facility]OSPITAL MCRSCP W/MNL DIFRNTL WBC COUNT BASIC 83569 [facility] BENAVIDES METABOLIC 1 CO CO PANEL [facility] CALCIUM TOTAL INITIAL 03659 [facility] 1 LACEY LACEY CARE/DAY 70 MINUTES NONEMERGE A0100 [facility] NCY 1 COMMUNITY TRANSPORT ACTION ATION; TAXI DAY CARE S5100 [facility] 1 N ACTIVE N ACTIVE ADULT; DAY CENT DAY CENT PER 15 MINUTES LIPID [id number] [facility] PANEL 1 [facility] PROTHROMB 17584 [facility] IN TIME [address] [place] [address] SUSAN DAVIS ABDOMEN & 1 [facility] W/O CONTRAST MATERIAL BLOOD 45313 [facility] COUNT 1 [facility] COMPLETE AUTO&[place] [address] [facility] THYROID 1 [facility] STIMULATI NG H[facility]ONE TSH C-REACTIV 63026 [facility] E PROTEIN 1 [facility] 3D 87704 SUSAN DAVIS RENDERING 1 [facility] INC W/INTERP& POSTPROC DIFF WORK STATION NONEMERGE A0100 [facility] 1 COMMUNITY TRANSPORT ACTION ATION; TAXI DAY CARE S5100 [facility] 1 N ACTIVE N ACTIVE ADULT; DAY CENT DAY CENT PER 15 MINUTES DAY CARE S5100 [facility] 1 N ACTIVE N ACTIVE ADULT; DAY CENT DAY CENT PER 15 MINUTES NONEMERGE A0100 [facility] 1 COMMUNITY TRANSPORT ACTION ATION; TAXI NONEMERGE A0100 [facility] 1 COMMUNITY TRANSPORT ACTION ATION; [facility]I DAY CARE S5100 [facility] 1 N ACTIVE N ACTIVE ADULT; DAY CENT DAY CENT PER 15 MINUTES DAY CARE S5100 [facility] 1 N ACTIVE N ACTIVE ADULT; DAY CENT DAY CENT PER 15 MINUTES NONEMERGE A0100 [facility] 1 COMMUNITY TRANSPORT ACTION ATION; TAXI NONEMERGE A0100 [facility] 1 COMMUNITY TRANSPORT ACTION ATION; [facility] DAY CARE S5100 [facility] 1 N ACTIVE N ACTIVE ADULT; DAY CENT DAY CENT PER 15 MINUTES DAY CARE S5100 [facility] 1 N ACTIVE N ACTIVE ADULT; DAY CENT DAY CENT PER 15 MINUTES NONEMERGE A0100 [facility] 1 COMMUNITY TRANSPORT ACTION ATION; TAXI NONEMERGE A0100 [facility] NC[facility] 1 COMMUNITY TRANSPORT ACTION ATION; T[facility]I DAY CARE S5100 [facility] 1 N ACTIVE N ACTIVE ADULT; DAY CENT DAY CENT PER 15 MINUTES DAY CARE S5100 [facility] 1 N ACTIVE N ACTIVE ADULT; DAY CENT DAY CENT PER 15 MINUTES NONEMERGE A0100 [facility] 1 COMMUNITY TRANSPORT ACTION ATION; TAXI NONEMERGE A0100 [facility] 1 COMMUNITY TRANSPORT ACTION ATION; TAXI O2 CONC 1 E1390 [facility] [place] 1 HOME MED HOME MED 85%/>02 EQUIP. L EQUIP. L CONC AT [facility] FLW RATE DAY CARE S5100 [facility] 1 N ACTIVE N ACTIVE ADULT; DAY CENT DAY CENT PER 15 MINUTES PRTBLE E0431 JANAE CARDOSO GASEOUS 1 HOME MED HOME MED O2 SYS EQUIP. L EQUIP. L RENT; [facility] ASK DAY CARE S5100 [facility] 1 N ACTIVE N ACTIVE ADULT; DAY CENT DAY CENT PER 15 MINUTES NONEMERGE A0100 [facility] 1 COMMUNITY TRANSPORT ACTION ATION; TAXI NONEMERGE A0100 [facility] 1 COMMUNITY TRANSPORT ACTION ATION; TAXI DAY CARE S5100 [facility] 1 N ACTIVE N ACTIVE ADULT; DAY CENT DAY CENT PER 15 MINUTES DAY CARE S5100 [facility] 1 N ACTIVE N ACTIVE ADULT; DAY CENT DAY CENT PER 15 MINUTES NONEMERGE A0100 [facility] 1 COMMUNITY TRANSPORT ACTION ATION; TAXI NONEMERGE A0100 [facility] 1 COMMUNITY TRANSPORT ACTION ATION; TAXI DAY CARE S5100 [facility] 1 N ACTIVE N ACTIVE ADULT; DAY CENT DAY CENT PER 15 MINUTES DAY CARE S5100 [facility] 1 N ACTIVE N ACTIVE ADULT; DAY CENT DAY CENT PER 15 MINUTES NONEMERGE A0100 [facility] 1 COMMUNITY TRANSPORT ACTION ATION; TAXI NONEMERGE A0100 [facility] 1 COMMUNITY TRANSPORT ACTION ATION; TAXI DAY CARE S5100 [facility] 1 N ACTIVE N ACTIVE ADULT; DAY CENT DAY CENT PER 15 MINUTES DAY CARE S5100 [facility] 1 N ACTIVE N ACTIVE ADULT; DAY CENT DAY CENT PER 15 MINUTES NONEMERGE A0100 [facility] 1 COMMUNITY TRANSPORT ACTION ATION; TAXI NONEMERGE A0100 [facility] UTY 1 COMMUNITY TRANSPORT ACTION ATION; [facility]I DAY CARE S5100 [facility] 1 N ACTIVE N ACTIVE ADULT; DAY CENT DAY CENT PER 15 MINUTES DAY CARE S5100 [facility] 1 N ACTIVE N ACTIVE ADULT; DAY CENT DAY CENT PER 15 MINUTES NONEMERGE A0100 [facility] 1 COMMUNITY TRANSPORT ACTION ATION; TAXI NONEMERGE A0100 [facility] 1 COMMUNITY TRANSPORT ACTION ATION; TAXI DAY CARE S5100 [facility] 1 N ACTIVE N ACTIVE ADULT; DAY CENT DAY CENT PER [address] THORAX 55352 [facility] JACQUELINE W/O 1 MEDICAL ADR CONTRAST SERV MATERIAL [facility] 82855 [facility] [place] DISCHARGE 1 MEDICAL VEE DAY SERV MANAGEMEN FOUNDATIO T 30 MIN/< DOPPLER 53223 [facility] HUANG CAI ECHOCARD 1 MEDICAL PULSE SERV WAVE FOUNDATIO W/SPECTRA L DISPLAY CV STRS 67068 [facility] HUANG CAI TST 1 MEDICAL XERS&/OR SERV RX CONT FOUNDATIO ECG I&R ONLY ECHO 19587 [facility] HUANG CAI TTHRC R-T 1 MEDICAL 2D W/WO SERV M-MODE FOUNDATIO COMPLETE REST&ST ECG 00518 [facility] IBETH C ROUTINE 1 MEDICAL ECG SERV W/LEAST FOUNDATIO 12 LDS I&R ONLY SBSQ 38638 [facility] 1 MEDICAL VEE CARE/DAY SERV 35 FOUNDATIO MINUTES CV STRS 33543 [facility] CAI TST 1 MEDICAL XERS&/OR SERV RX CONT FOUNDATIO ECG W/O I&R DOP 82913 [facility] CAI ECHOCARD 1 MEDICAL COLOR SERV FLOW FOUNDATIO VELOCITY MAPPING ECG 04270 [facility] BENAVIDES ROUTINE 1 CO CO ECG [facility] W/LEAST 12 LDS TRCG ONLY W/O I&R PROTHROMB 09754 [facility]ENN[facility] BENAVIDES IN TIME 1 [facility] CO HOSPITAL HOSPITAL THER 45899 [facility] BENAVIDES PROPH/DX 1 CO CO NJX IV [facility] PUSH SINGLE/1S T SBST/DRUG SUSCEPTBI 48555 [facility]ENN[facility] BENAVIDES LTY STDY 1 CO CO ANTIMICRB [facility] [place] D[place] [address] [facility] BENAVIDES INFUSION 1 CO CO THERAPY/P [facility] ROPHYLAXI S /DX 1ST [place] [address] [facility] BENAVID[facility] TROPONIN 1 CO CO QUANTITAT [facility] JOSE ALFREDO COLLECTIO 24735 [facility] BENAVIDES N VENOUS 1 CO CO BLOOD [facility] VENIPUNCT URE IMMUNOASS 09977 [facility] BENAVIDES AY 1 CO CO ANALYTE [facility] QUANT RADIOIMMU NOASSAY MYOGLOBIN 92789 [facility] BENAVIDES 1 CO CO [facility] ECG 70890 [facility] COUGHLIN ROUTINE 1 MEDICAL ECG SERV W/LEAST FOUNDATIO 12 LDS I&R ONLY URNLS DIP 68092 [facility] BENAVIDES 1 CO CO STICK/TAB HOSPITAL HOSPITAL LET REAGENT AUTO MICROSCOP Y RADIOLOGI 36934 [facility] BENAV[facility] C EXAM 1 CO CO CHEST 2 [facility] VIEWS FRONTAL&L ATERAL CREATINE 45258 [facility] BENAVIDES KINASE 1 [facility] CREATINE 84113 [facility] BENAVIDES KINASE MB 1 CO CO FRACTION [facility] ONLY COMPREHEN 74493 [facility] BENAVIDES SIVE 1 CO CO [facility]OLIC [facility] HOSPITAL PANEL BLOOD 36706 KENNEDY BENAVDIES COUNT 1 CO CO SMEAR [facility] MCRSCP W/MNL DIFRNTL WBC COUNT INITIAL 69116 [facility] 1 MEDICAL VEE CARE/DAY SERV 70 FOUNDATIO MINUTES CRITICAL 80359 KENNEDY KENNEDY CARE 1 [place] ILL/INJUR [facility]PITAL ED PATIENT INIT 30-74 MIN THROMBOPL 39641 KENNEDY KENNEDY ASTIN 1 [place] CO TIME [facility]OSPITAL PARTIAL PLASMA/WH OLE BLOOD CULTURE 64211 KENNEDY KENNEDY BACTERIAL 1 [facility]ICAL [facility]ESS HOSPITAL QUANTTATI VE COLONY COUNT URINE CULTURE 03556 KENNEDY KENNEDY BCT [address] [facility] PTV ID ISOLATE EA URINE NONEMERGE A0100 [facility] U[facility] 1 COMMUNITY TRANSPORT ACTION ATION; TAXI DAY CARE S5100 [facility] 1 N ACTIVE N ACTIVE ADULT; DAY CENT DAY CENT PER 15 MINUTES PRTBLE E0431 JANAE CARDOSO GASEOUS 1 HOME MED HOME MED O2 SYS EQUIP. L EQUIP. L RENT; FLWMTR HUMIDFR&M ASK O2 CONC 1 E1390 [facility] [place] 1 HOME MED HOME MED 85%/>02 EQUIP. L EQUIP. L CONC AT [facility] FLW RATE NONEMERGE A0100 [facility] U[facility] 1 COMMUNITY TRANSPORT ACTION ATION; TAXI DAY CARE S5100 [facility] 1 N ACTIVE N ACTIVE ADULT; DAY CENT DAY CENT PER 15 MINUTES DAY CARE S5100 [facility] 1 N ACTIVE N ACTIVE ADULT; DAY CENT DAY CENT PER 15 MINUTES NONEMERGE A0100 [facility] 1 COMMUNITY TRANSPORT ACTION ATION; TAXI NONEMERGE A0100 [facility] 1 COMMUNITY TRANSPORT ACTION ATION; TAXI DAY CARE S5100 [facility] 1 N ACTIVE N ACTIVE ADULT; DAY CENT DAY CENT PER 15 MINUTES NONEMERGE A0100 [facility] U[facility] 1 COMMUNITY TRANSPORT ACTION ATION; TAXI NONEMERGE A0100 [facility] 1 COMMUNITY TRANSPORT ACTION ATION; TAXI DAY CARE S5100 [facility] 1 N ACTIVE N ACTIVE ADULT; DAY CENT DAY CENT PER 15 MINUTES DAY CARE S5100 [facility] 1 N ACTIVE N ACTIVE ADULT; DAY CENT DAY CENT PER 15 MINUTES NONEMERGE A0100 [facility] 1 COMMUNITY TRANSPORT ACTION ATION; TAXI NONEMERGE A0100 [facility] 1 COMMUNITY TRANSPORT ACTION ATION; TAXI DAY CARE S5100 [facility] 1 N ACTIVE N ACTIVE ADULT; DAY CENT DAY CENT PER 15 MINUTES [facility] [address] [facility] NAIL 1 FOOT & ANY ANKLE CE METHOD / DAY CARE S5100 [facility] 1 N ACTIVE N ACTIVE ADULT; DAY CENT DAY CENT PER 15 MINUTES NONEMERGE A0100 [facility] 1 COMMUNITY TRANSPORT ACTION ATION; TAXI NONEMERGE A0100 [facility] 1 COMMUNITY TRANSPORT ACTION ATION; TAXI DAY CARE S5100 [facility] 1 N ACTIVE N ACTIVE ADULT; DAY CENT DAY CENT PER 15 MINUTES DAY CARE S5100 [facility] 1 N ACTIVE N ACTIVE ADULT; DAY CENT DAY CENT PER 15 MINUTES NONEMERGE A0100 [facility] 1 COMMUNITY TRANSPORT ACTION ATION; TAXI NONEMERGE A0100 [facility] 1 COMMUNITY TRANSPORT ACTION ATION; TAXI DAY CARE S5100 [facility] 1 N ACTIVE N ACTIVE ADULT; DAY CENT DAY CENT PER 15 MINUTES DAY CARE S5100 [facility] 1 N ACTIVE N ACTIVE ADULT; DAY CENT DAY CENT PER 15 MINUTES NONEMERGE A0100 [facility] 1 COMMUNITY TRANSPORT ACTION ATION; TAXI NONEMERGE A0100 [facility] 1 COMMUNITY TRANSPORT ACTION ATION; TAXI DAY CARE S5100 [facility] 1 N ACTIVE N ACTIVE ADULT; DAY CENT DAY CENT PER 15 MINUTES ECG 76057 [facility] ROUTINE 1 LACEY LACEY ECG W/LEAST 12 LDS I&R ONLY RADIOLOGI 47383 [facility] C EXAM 1 MJ CHEST 2 RADIOLOGY VIEWS ASSOCIAT FRONTAL&L ATERAL PRTBLE E0431 JANAE CARDOSO GASEOUS 1 HOME MED HOME MED O2 SYS EQUIP. L EQUIP. L RENT; FLWMTR HUMIDFR&M ASK O2 CONC 1 E1390 [facility] [place] 1 HOME MED HOME MED 85%/>02 EQUIP. L EQUIP. L CONC AT [facility] FLW RATE ECG 60279 [facility] ROUTINE 1 LACEY LACEY ECG W/LEAST 12 [facility] I&R ONLY HOSPITAL 96970 [facility] DISCHARGE 1 LACEY LACEY DAY MANAGEMEN T > 30 MIN SBSQ 88297 [facility] 1 LACEY LACEY CARE/DAY 25 MINUTES SBSQ 48932 [facility] 1 LACEY LACEY CARE/DAY 25 MINUTES SBSQ 61016 [facility] 1 LACEY LACEY CARE/DAY 25 MINUTES SBSQ 42819 [facility] 1 LACEY LACEY CARE/DAY 25 MINUTES NONEMERGE A0100 [facility] COMMUNITY TRANSPORT ACTION ATION; TAXI RADIOLOGI 82313 [facility] C EXAM 1 EIDER SUSIE CHEST 2 RADIOLOGY VIEWS ASSOCIAT FRONTAL&L ATERAL INITIAL 31343 [facility] W[facility] 1 LACEY LACEY CARE/DAY [address] THORAX 20956 [facility] W/O 0 EIDER SUSIE CONTRAST RADIOLOGY MATERIAL ASSOCIAT SBSQ 30462 [facility] 0 REGLA REGLA CARE/DAY 25 MINUTES BLOOD 84060 NEW NEW COUNT 0 [facility] MED CTR MCRSCP W/MNL DIFRNTL WBC COUNT BASIC 83806 NEW NEW METABOLIC 0 [facility] PANEL MED CTR MED CTR CALCIUM TOTAL RADIOLOGI 14039 NEW NEW C EXAM 0 [facility] CHEST 2 MED CTR MED CTR VIEWS FRONTAL&L ATERAL IMMUNOASS 22403 NEW NEW AY 0 [facility] ANALYTE MED CTR MED CTR QUANTITAT JOSE ALFREDO NOS COLLECTIO 52548 NEW NEW N VENOUS 0 [facility] BLOOD MED CTR MED CTR VENIPUNCT URE BLOOD 79213 NEW NEW COUNT 0 [facility] COMPLETE MED CTR MED CTR AUTO&AUTO DIFRNTL WBC PROTHROMB 52283 NEW NEW IN TIME 0 [facility] MED CTR DAY CARE S5100 [facility] 0 N ACTIVE N ACTIVE ADULT; DAY CENT DAY CENT PER 15 MINUTES NONEMERGE A0100 [facility] NCY 0 COMMUNITY TRANSPORT ACTION ATION; TAXI NONEMERGE A0100 [facility] NCY 0 COMMUNITY TRANSPORT ACTION ATION; TAXI DAY CARE S5100 [facility] 0 N ACTIVE N ACTIVE ADULT; DAY CENT DAY CENT PER 15 MINUTES DAY CARE S5100 [facility] 0 N ACTIVE N ACTIVE ADULT; DAY CENT DAY CENT PER 15 MINUTES NONEMERGE A0100 [facility] NCY 0 COMMUNITY TRANSPORT ACTION ATION; TAXI NONEMERGE A0100 [facility] NCY 0 COMMUNITY TRANSPORT ACTION ATION; TAXI DAY CARE S5100 [facility] 0 N ACTIVE N ACTIVE ADULT; DAY CENT DAY CENT PER 15 MINUTES DAY CARE S5100 [facility] 0 N ACTIVE N ACTIVE ADULT; [...] 85%/>02 EQUIP. L EQUIP. L CONC AT [facility] FLW RATE NONEMERGE A0100 [facility] NCY 0 COMMUNITY TRANSPORT ACTION ATION; TAXI DAY CARE S5100 [facility] 0 N ACTIVE N ACTIVE ADULT; DAY CENT DAY CENT PER 15 MINUTES DAY CARE S5100 [facility] 0 N ACTIVE N ACTIVE ADULT; DAY CENT DAY CENT PER 15 [facility]ES [facility] [address] [facility] REKHA NT NAIL 0 FOOT & ANY ANKLE CE METHOD 6/> NONEMERGE A0100 [facility] NCY 0 COMMUNITY TRANSPORT ACTION ATION; TAXI NONEMERGE A0100 [facility] NCY 0 COMMUNITY TRANSPORT ACTION ATION; T[facility]I DAY CARE S5100 [facility] 0 N ACTIVE N ACTIVE ADULT; DAY CENT DAY CENT PER 15 MINUTES DAY CARE S5100 [facility] 0 N ACTIVE N ACTIVE ADULT; DAY CENT DAY CENT PER 15 MINUTES NONEMERGE A0100 [facility] NCY 0 COMMUNITY TRANSPORT ACTION ATION; TAXI NONEMERGE A0100 [facility] NCY 0 COMMUNITY TRANSPORT ACTION ATION; TAXI DAY CARE S5100 [facility] 0 N ACTIVE N ACTIVE ADULT; DAY CENT DAY CENT PER 15 MINUTES DAY CARE S5100 [facility] 0 N ACTIVE N ACTIVE ADULT; DAY CENT DAY CENT PER 15 MINUTES NONEMERGE A0100 [facility] NCY 0 COMMUNITY TRANSPORT ACTION ATION; TAXI COLLECTIO 26499 RINALDINI RINALDINI N VENOUS 0 LACEY LACEY BLOOD VENIPUNCT URE DAY CARE S5100 [facility] 0 N ACTIVE N ACTIVE ADULT; DAY CENT DAY CENT PER 15 MINUTES NONEMERGE A0100 [facility] NCY 0 COMMUNITY TRANSPORT ACTION ATION; TAXI NONEMERGE A0100 [facility] NCY 0 COMMUNITY TRANSPORT ACTION ATION; TAXI DAY CARE S5100 [facility] 0 N ACTIVE N ACTIVE ADULT; DAY CENT DAY CENT PER 15 MINUTES RADEX 83264 [facility] [place] 0 [place] COMPLETE ORTHOPAED MINIMUM 3 [facility] VIEWS DAY CARE S5100 [facility] 0 N ACTIVE N ACTIVE ADULT; DAY CENT DAY CENT PER 15 MINUTES NONEMERGE A0100 [facility] NCY 0 COMMUNITY TRANSPORT ACTION ATION; TAXI NONEMERGE A0100 [facility] NCY 0 COMMUNITY TRANSPORT ACTION ATION; TAXI DAY CARE S5100 [facility] 0 N ACTIVE N ACTIVE ADULT; DAY CENT DAY CENT PER 15 MINUTES DAY CARE S5100 [facility] 0 N ACTIVE N ACTIVE ADULT; DAY CENT DAY CENT PER 15 MINUTES NONEMERGE A0100 [facility] NCY 0 COMMUNITY TRANSPORT ACTION ATION; TAXI NONEMERGE A0100 [facility] NCY 0 COMMUNITY TRANSPORT ACTION ATION; TAXI O2 CONC 1 E1390 [facility]E JANAE DEL PORT 0 HOME MED HOME MED 85%/>02 EQUIP. L EQUIP. L CONC AT [facility] FLW RATE PRTBLE E0431 JANAE JANAE GASEOUS 0 HOME MED HOME MED O2 SYS EQUIP. L EQUIP. L RENT; FLWMTR HUMIDFR&M ASK DAY CARE S5100 [facility] 0 N ACTIVE N ACTIVE ADULT; DAY CENT DAY CENT PER 15 MINUTES NONEMERGE A0130 LK MEDI-CAB NCY 0 COMMUNITY - TRANSPORT ACTION ATION: JOSÉ MANUEL CORTEZ DAY CARE S5100 [facility] 0 N ACTIVE N ACTIVE ADULT; DAY CENT DAY CENT PER 15 MINUTES DAY CARE S5100 [facility] 0 N ACTIVE N ACTIVE ADULT; DAY CENT DAY CENT PER 15 MINUTES NONEMERGE A0130 LKLP MEDI-CAB NCY 0 COMMUNITY - TRANSPORT ACTION ATION: [facility] A[facility] MEDI-CAB NCY 0 COMMUNITY - TRANSPORT ACTION ATION: JOSÉ MANUEL CORTEZ DAY CARE S5100 [facility] 0 N ACTIVE N ACTIVE ADULT; DAY CENT DAY CENT PER 15 MINUTES DAY CARE S5100 [facility] 0 N ACTIVE N ACTIVE ADULT; DAY CENT DAY CENT PER 15 MINUTES NONEMERGE A0130 [facility] MEDI-CAB NCY 0 COMMUNITY - TRANSPORT ACTION ATION: JOSÉ MANUEL CORTEZ NONEMERGE A0130 [facility] MEDI-CAB NCY 0 COMMUNITY - TRANSPORT ACTION ATION: JOSÉ MANUEL CORTEZ DAY CARE S5100 [facility] 0 N ACTIVE N ACTIVE ADULT; DAY CENT DAY CENT PER 15 MINUTES DAY CARE S5100 [facility] 0 N ACTIVE N ACTIVE ADULT; DAY CENT DAY CENT PER 15 MINUTES NONEMERGE A0130 [facility] MEDI-CAB NCY 0 COMMUNITY - TRANSPORT ACTION ATION: JOSÉ MANUEL CORTEZ NONEMERGE A0130 [facility] MEDI-CAB NCY 0 COMMUNITY - TRANSPORT ACTION ATION: JOSÉ MANUEL CORTEZ DAY CARE S5100 [facility] 0 N ACTIVE N ACTIVE ADULT; DAY CENT DAY CENT PER 15 MINUTES DAY CARE S5100 [facility] 0 N ACTIVE N ACTIVE ADULT; DAY CENT DAY CENT PER 15 MINUTES NONEMERGE A0130 [facility] MEDI-CAB NCY 0 COMMUNITY - TRANSPORT ACTION ATION: JOSÉ MANUEL CORTEZ NONEMERGE A0130 [facility] MEDI-CAB NCY 0 COMMUNITY - TRANSPORT ACTION ATION: JOSÉ MANUEL CORTEZ DAY CARE S5100 [facility] 0 N ACTIVE N ACTIVE ADULT; DAY CENT DAY CENT PER 15 MINUTES WALKER E0143 JANAE JANAE [place]OLDING 0 HOME MED HOME MED WHEELED EQUIP. L EQUIP. L ADJUSTABL E/FIXED HEIGHT RADEX [address]2364 [place] NERISSA ANKLE 0 MEDICAL ALE COMPLETE IMAGING MINIMUM 3 ASS VIEWS RADIOLOGI [id number] SUSAN DAVIS C 0 [facility] EX[facility] INC ON ANKLE 2 VIEWS NONEMERGE A0130 [facility] [place] NCY 0 [facility] TRANSPORT ACTION COM ACTI ATION: JOSÉ MAUNEL HERNANDEZGE A0130 [facility] MEDI-CAB NCY 0 COMMUNITY - TRANSPORT ACTION [...] 85%/>02 EQUIP. L EQUIP. L CONC AT [facility] FLW RATE BLOOD 24186 [facility] COUNT 0 MED LAB MED LAB COMPLETE AUTO&[place] [address] [facility] THYROID 0 MED LAB MED LAB STIMULATI NG HORMONE TSH PROTHROMB [id number] [facility] IN TIME 0 MED LAB MED LAB COMPREHEN [id number] [facility] SIVE 0 MED LAB MED LAB METABOLIC PANEL DRUG [id number] [facility] ASSAY 0 MED LAB MED LAB VALPROIC DIPROPYLA CETIC ACID TOTAL RADEX [id number] [facility] BENAV[facility]ES ANKLE 0 [facility] MINIMUM 3 VIEWS NONEMERGE A0130 [facility] MEDI-CAB NCY 0 COMMUNITY - TRANSPORT ACTION ATION: JOSÉ MANUEL CORTEZ NONEMERGE A0130 [facility] NCY 0 COMMUNITY - TRANSPORT ACTION ATION: JOSÉ MANUEL CORTEZ DAY CARE S5100 [facility] 0 N ACTIVE N ACTIVE ADULT; DAY CENT DAY CENT PER 15 MINUTES DAY CARE S5100 [facility] 0 N ACTIVE N ACTIVE ADULT; DAY CENT DAY CENT PER 15 MINUTES NONEMERGE A0130 [facility] NCY 0 COMMUNITY - TRANSPORT ACTION ATION: JOSÉ MANUEL CORTEZ NONEMERGE A0130 [facility] NCY 0 COMMUNITY - TRANSPORT ACTION ATION: JOSÉ MANUEL CORTEZ DAY CARE S5100 [facility] 0 N ACTIVE N ACTIVE ADULT; DAY CENT DAY CENT PER 15 MINUTES DAY CARE S5100 [facility] 0 N ACTIVE N ACTIVE ADULT; DAY CENT DAY CENT PER 15 MINUTES NONEMERGE A0130 [facility]-C[facility] NCY 0 COMMUNITY - TRANSPORT ACTION ATION: JOSÉ MANUEL SAAVEDRA 49275 [facility] ANKLE 0 [facility] MINIMUM 3 VIEWS BLOOD 95979 [facility] COUNT 0 [facility] COMPLETE [facility] HOSP AUTOMATED PROTHROMB 03610 [facility] IN TIME 0 [facility] BASIC 02676 [facility] METABOLIC 0 [facility] PANEL [facility]OSP HOSP [facility] 43676 [facility] DISCHARGE 0 HEART DAY SPEC MANAGEMEN T 30 MIN/< SBSQ 00640 [facility] 0 HEART CARE/DAY SPEC 25 MINUTES PROTHROMB 92455 [facility] IN TIME 0 [facility] HOSP PROTHROMB 77386 [facility] IN TIME 0 [facility]OSP BLOOD 46122 [facility] COUNT 0 [facility] COMPLETE HOSP HOSP AUTOMATED SBSQ 12865 [facility] 0 HEART CARE/DAY SPEC 25 MINUTES BASIC 51327 [facility] METABOLIC 0 [facility] PANEL HOSP HOSP CALCIUM TOTAL BASIC 65369 [facility] METABOLIC 0 [facility] PANEL HOSP HOSP CALCIUM TOTAL RADIOLOGI 39793 [facility]AL CROWELL MAR C 0 RADIOLOGY EXAMINATI ASSOC ON CHEST SINGLE VIEW FRONTAL SBSQ 80215 [facility] 0 HEART CARE/DAY SPEC 25 MINUTES ARTIFICIA 8945 [facility] L 0 [facility] [place] [address] [facility]EN[facility]ENTRAL THYROID 0 [facility] STIMULATI HOSP HOSP NG HORMONE TSH BLOOD 18787 [facility] COUNT 0 [facility] [place] [address] [facility] FREE 0 [facility] THYROXINE HOSP HOSP PROTHROMB 51125 [facility] IN TIME 0 [facility] HOSP HOSP ECHO 89677 [facility] TTHRC R-T 0 UAT[facility] 2D HOSP HOSP W/WOM-MOD E COMPL SPEC&COLR D IIV3 15155 [facility] VACCINE 0 [facility] SPLIT HOSP HOSP VIRUS 0.5 ML DOSAGE IM USE URINALYSI 64217 NEW NEW S 0 [facility] MICROSCOP MED CTR MED CTR IC ONLY RADEX 88971 NEW NEW ANKLE 0 [facility] COMPLETE MED CTR MED CTR MINIMUM 3 VIEWS RADIOLOGI 63269 NEW NEW C EXAM 0 [facility] KNEE MED CTR MED CTR COMPLETE 4/[place] [address] NEW NEW CERVICAL 0 [facility] SPINE W/O MED CTR MED CTR CONTRAST MATERIAL RADEX 18732 NEW NEW SHOULDER 0 [facility] 1 VIEW MED CTR MED CTR RADIOLOGI 72829 NEW NEW C 0 [facility] EXAMINATI MED CTR MED CTR ON PELVIS 1/2 VIEWS COMPREHEN 49754 NEW NEW SIVE 0 [facility] METABOLIC MED CTR MED CTR PANEL URNLS DIP 14226 NEW NEW 0 [facility] STICK/TAB MED CTR MED CTR LET RGNT AUTO W/O MICROSCOP Y RADEX 49000 NEW NEW WRIST 0 [facility] COMPLETE MED CTR MED CTR MINIMUM 3 VIEWS CREATINE 57281 NEW NEW KINASE 0 [facility] [address] NEW NEW HEAD/BRAI 0 [facility] H[facility]IZ[facility] N W/O [place] [address] NEW NEW MAGNESIUM 0 [facility] HORIZONS MED CTR MED CTR ECG 22794 [facility] ROUTINE 0 UATSDIN [facility] ECG HOSP HOSP W/LEAST 12 LDS TRCG ONLY W/O I&R PROTHROMB 18603 NEW NEW IN TIME 0 HORIZONS HORIZONS MED CTR MED CTR INITIAL 28065 [facility] 0 HEART CARE/DAY SPEC 70 MINUTES GROUND A0425 TRACY MOLINA MILEAGE 0 [facility] PER LIFE LIFE STATUTE SQUAD SQUAD MILE BLOOD 27506 NEW NEW COUNT 0 [facility] COMPLETE MED CTR MED CTR AUTO&AUTO DIFRNTL WBC COLLECTIO 07228 NEW NEW N VENOUS 0 [facility] BLOOD MED [place] [address] NEW NEW TROPONIN 0 [facility] QUANTITAT MED CTR MED CTR JOSE ALFREDO NONINVASI 55894 NEW NEW VE 0 [facility] EAR/PULSE MED CTR MED CTR OXIMETRY SINGLE DETER SUSCEPTIB 62533 NEW NEW LTY STDY 0 [facility] ANTIMICRB MED CTR MED CTR IAL MICRO/AGA R DILUTJ SBSQ 63929 NEW [facility] 0 HORIZONS GLORIA CARE/DAY MEDICALCE 35 NTER MINUTES AMB A0427 TRACY TRACY SERVICE 0 [facility] ALS LIFE LIFE EMERGENCY SQUAD SQUAD TRANSPORT LEVEL 1 CULTURE 92255 NEW NEW BACTERIAL 0 [facility] MED CTR MED CTR QUANTTATI VE COLONY COUNT URINE THROMBOPL 45136 NEW NEW ASTIN 0 [facility] TIME MED CTR MED CTR PARTIAL PLASMA/WH OLE BLOOD CUL BACT 67438 NEW NEW AEROBIC 0 [facility] ADDL MED CTR MED CTR METHS DEFINITIV E EA ISOL CRITICAL 57692 NEW [facility] CARE 0 HORIZONS GLORIA ILL/INJUR MEDICALCE ED NTER PATIENT INIT 30-74 MIN RADIOLOGI 81626 NEW NEW C 0 HORIZONS HORIZONS EXAMINATI MED CTR MED CTR ON CHEST SINGLE VIEW FRONTAL AMB A0422 TRACY MOLINA OXYGEN&O2 0 [facility] SUPPLIES LIFE LIFE LIFE SQUAD SQUAD SUSTAININ G SITUATION BASIC 43225 NEW NEW METABOLIC 0 [facility]IZONS PANEL MED CTR MED CTR CALCIUM TOTAL BLOOD 61480 NEW NEW COUNT 0 [facility]IZONS HORIZONS SMEAR MED CTR MED CTR MCRSCP W/MNL DIFRNTL WBC COUNT AMB A0422 TRACY MOLINA OXYGEN&O2 0 [facility] SUPPLIES LIFE LIFE LIFE SQUAD SQUAD SUSTAININ G SITUATION RADIOLOGI 72850 FSH GELORMINI C 0 RADIOLOGY ANDREW EXAMINATI INC ON KNEE 1/2 VIEWS AMB A0427 TRACY MOLINA SERVICE 0 [facility] ALS LIFE LIFE EMERGENCY SQUAD SQUAD TRANSPORT LEVEL 1 GROUND A0425 TRACY MOLINA MILEAGE 0 [facility] PER [place] [address] [facility] GELORMINI HEAD/BRAI 0 RADIOLOGY ANDREW N W/O INC CONTRAST MATERIAL RADEX 59821 [facility] GELORMINI WRIST 0 RADIOLOGY ANDREW COMPLETE INC MINIMUM 3 VIEWS RADIOLOGI 79594 [facility] GELORMINI C 0 RADIOLOGY ANDREW EXAMINATI INC ON PELVIS 1/[address] [place] [address] [facility] GELORMINI CERVICAL 0 RADIOLOGY ANDREW SPINE W/O INC CONTRAST MATERIAL RADEX 44639 [facility] GELORMINI ANKLE 0 RADIOLOGY ANDREW COMPLETE INC MINIMUM 3 VIEWS DAY CARE S5100 [facility] 0 N ACTIVE N ACTIVE ADULT; DAY CENT DAY CENT PER 15 MINUTES NONEMERGE A0130 [facility] NCY 0 COMMUNITY - TRANSPORT ACTION ATION: JOSÉ MANUEL GONZALES 84392 [facility] N VENOUS 0 CO CO BLOOD [facility] VENIPUNCT URE BLOOD 76040 [facility] COUNT 0 CO CO COMPLETE [facility] AUTO&AUTO DIFRNTL WBC MAX 60044 [facility] BREATHING 0 CLINIC ZULY CAPACITY PSC MAXIMAL VOLUNTARY VENTJ ECG 30860 [facility] ROUTINE 0 CO CO ECG HOSPITAL HOSPITAL W/LEAST 12 LDS TRCG ONLY W/O I&R RADIOLOGI 86768 [facility] Sheikh EXAM 0 CO CO CHEST 2 HOSPITAL HOSPITAL VIEWS FRONTAL&L ATERAL ECG 19216 BRAYAN SCHMIDT ROUTINE 0 LACEY LACEY ECG W/LEAST 12 LDS I&R ONLY BASIC 93319 [facility] METABOLIC 0 CO CO PANEL HOSPITAL HOSPITAL CALCIUM TOTAL O2 CONC 1 E1390 [facility]E CARDOSO [place] 0 HOME MED HOME MED 85%/>02 EQUIP. L EQUIP. L CONC AT [facility] FLW RATE PRTBLE E0431 JANAE JANAE GASEOUS 0 HOME MED HOME MED O2 SYS EQUIP. L EQUIP. L RENT; FLWMTR HUMIDFR&M ASK RADIOLOGI 16513 [place] VICTOR C EXAM 0 SUSI CHEST 2 RADIOLOGY VIEWS ASSOCIAT FRONTAL&L [facility] 41384 [facility] DISCHARGE 0 LACEY LACEY DAY MANAGEMEN T 30 MIN/< SBSQ 52751 [facility] 0 LACEY LACEY CARE/DAY 25 MINUTES RADIOLOGI 78006 [place] VICTOR C 0 SUSI EXAMINATI RADIOLOGY ON CHEST ASSOCIAT [place] FRONTAL ECG 59594 [facility] ROUTINE 0 LACEY LACEY ECG W/LEAST 12 LDS I&R ONLY INITIAL 07478 [facility] 0 LACEY LACEY CARE/DAY 50 MINUTES HOSPITAL 14422 [place] [facility] DISCHARGE 0 MEDICAL JACQUELINE DAY SERV MANAGEMEN FOUNDATIO T 30 MIN/< DEVELOPME 44413 [facility] NT OF 0 [facility] COGN[facility] SKILLS HOSP HOSP EACH 15 MINUTES THERAPEUT 61997 [facility] ACTVITY 0 [place] DIRECT PT REHAB REHAB CONTACT HOSP HOSP EACH 15 MIN PHYSICAL 20692 [facility] THERAPY 0 [place] EVALUATIO REHAB REHAB N HOSP HOSP THERAPEUT 52999 [facility] IC PX 1/> 0 [place] AREAS REHAB REHAB EACH 15 HOSP HOSP MIN EXERCISES THERAPEUT 03321 [facility] ACTVITY 0 [place] DIRECT PT REHAB REHAB CONTACT HOSP HOSP EACH 15 MIN DEVELOPME 25128 [facility] NT OF 0 [place] COGNITIVE [facility] REHAB SKILLS HOSP HOSP EACH 15 MINUTES DEVELOPME 72958 [facility] NT OF 0 [place] COGNITIVE [facility] SKILLS HOSP [place] 15 [place] [address] [facility] 1/> AREAS 0 [place] EA 15 REHAB REHAB MIN GAIT HOSP HOSP TRAINJ W/STAIR PRTBLE E0431 JANAE JANAE GASEOUS 0 HOME MED HOME MED O2 SYS EQUIP. L EQUIP. L RENT; FLWMTR HUMIDFR&M ASK THERAPEUT 69300 [facility] IC PX 1/> 0 [place] [facility] EACH 15 HOSP HOSP MIN EXERCISES O2 CONC 1 E1390 JANAE [facility] 0 HOME MED HOME MED 85%/>02 EQUIP. L EQUIP. L CONC AT [facility] FLW RATE SBSQ 60315 [facility] 0 MEDICAL GUILHERME CARE/DAY SERV 25 FOUNDATIO MINUTES SBSQ 74507 [facility] 0 MEDICAL GUILHERME CARE/DAY SERV 25 FOUNDATIO MINUTES SBSQ 53787 [facility] 0 MEDICAL JACQUELINE CARE/DAY SERV 25 FOUNDATIO MINUTES THERAPEUT 73394 [facility] IC PX 1/> 0 [place] [facility] EACH 15 HOSP HOSP MIN EXERCISES DEVELOPME 55579 [facility] NT OF 0 [place] COGNITIVE [facility] REHAB SKILLS HOSP HOSP EACH 15 MINUTES DEVELOPME 29176 [facility] NT OF 0 [place] COGNITIVE [facility] REHAB SKILLS HOSP [place]OS[place] 15 [place] [address] C[facility] 1/> AREAS 0 [place] EA 15 REHAB REHAB MIN GAIT HOSP HOSP TRAINJ W/STAIR THERAPEUT 72629 [facility] ACTVITY 0 [place] DIRECT PT REHAB REHAB CONTACT HOSP HOSP EACH 15 MIN THERAPEUT 54283 [facility] IC PX 1/> 0 [place] ARE[facility] REHAB REHAB EACH 15 HOSP HOSP MIN EXERCISES SBSQ 58533 [facility] 0 MEDICAL JACQUELINE CARE/DAY SERV 25 FOUNDATIO MINUTES TX SPEECH 79390 [facility] LANGUAGE 0 [place] VOICE REHAB REHAB COMMJ HOSP HOSP AUDITRY 2/>[place] [address] [facility] SWALLOWIN 0 [place] G REHAB REHAB DYSFUNCTI HOSP HOSP ON&/ORAL FUNCJ [facility] [address] [place] [address] MEDICAL JACQUELINE CARE/DAY SERV 25 FOUNDATIO MINUTES THERAPEUT 39639 [facility] IC PX 1/> 0 [place] ARE[facility] REHAB REHAB EACH 15 HOSP HOSP MIN EXERCISES THERAPEUT 49892 [facility] ACTVITY 0 [place] DIRECT PT REHAB REHAB CONTACT HOSP [place] 15 [place] [address] [facility] 1/> AREAS 0 [facility] EA 15 REHAB REHAB MIN GAIT HOSP HOSP TRAINJ W/STAIR DEVELOPME 45598 [facility] NT OF 0 [place] COGNITIVE REHAB REHAB SKILLS HOSP HOSP [place] 15 [place] [address] [facility] 1/> AREAS 0 [facility] EA 15 REHAB REHAB MIN GAIT HOSP HOSP TRAINJ W/STAIR THERAPEUT 03221 [facility] IC PX 1/> 0 [facility] AREAS REHAB REHAB EACH 15 HOSP HOSP MIN EXERCISES EVAL 61051 [facility] SPEECH 0 [facility] LANG REHAB REHAB VOICE HOSP HOSP COMMUNJ &/RESIDENT MANAGER Y PROC SBSQ 69676 [facility] 0 MEDICAL JACQUELINE CARE/DAY SERV 25 FOUNDATIO MINUTES SBSQ 13384 [facility] 0 MEDICAL JACQUELINE CARE/DAY SERV 25 FOUNDATIO MINUTES THERAPEUT 03440 [facility] IC PX 1/> 0 [facility] AREAS REHAB REHAB EACH 15 [place] [address] [facility] [place] 1/> AREAS 0 [facility] EACH 15 REHAB REHAB MIN [place] [address] [facility] 1/> AREAS 0 [facility] EA 15 REHAB REHAB MIN GAIT HOSP HOSP TRAINJ W/STAIR SBSQ 19482 [facility] 0 MEDICAL JACQUELINE CARE/DAY SERV 25 FOUNDATIO MINUTES SBSQ 37332 [facility] 0 MEDICAL JACQUELINE CARE/DAY SERV 25 FOUNDATIO MINUTES THERAPEUT 11431 [facility] ACTVITY 0 [place] DIRECT PT REHAB REHAB CONTACT HOSP HOSP EACH 15 MIN PHYSICAL 83260 [facility] THERAPY 0 [facility] EVALUATIO REHAB REHAB N HOSP HOSP PROTHROMB 78274 [facility] IN TIME [address] [place] [address] [place] [id number] INORGANIC DUP-SCAN 89995 OR MINION XTR VEINS 0 MEDICAL SHIRAZ SERV UNILATERA FOUNDATIO L/LIMITED STUDY ECG 70716 [facility] ROUTINE 0 Y Y ECG HOSPITAL HOSPITAL W/LEAST 12 LDS TRCG ONLY W/O I&R AMBULANCE A0429 [facility] SERVICE 0 AMBULANCE AMBULANCE BLS SERVICE SERVICE EMERGENCY TRANSPORT GROUND A0425 [facility] MILEAGE 0 AMBULANCE AMBULANCE PER SERVICE SERVICE STATUTE MILE BLOOD 43536 [facility] COUNT 0 Y Y COMPLETE [place] [address] [facility] MAGNESIUM 0 Y Y HOSPITAL HOSPITAL ECG 37059 [place] IBETH C ROUTINE 0 MEDICAL ECG SERV W/LEAST FOUNDATIO 12 LDS I&R ONLY BASIC 77398 [facility] METABOLIC 0 Y Y PANEL [facility]OS[facility] [address] [facility] UNIVERSIT 1/> AREAS 0 Y Y EA 15 HOSPITAL HOSPITAL MIN GAIT TRAINJ W/STAIR THERAPEUT 55965 [facility] ACTVITY 0 Y Y DIRECT PT HOSPITAL HOSPITAL CONTACT EACH 15 MIN PROTHROMB 96829 [facility] IN TIME 0 Y Y HOSPITAL HOSPITAL PROTHROMB 91532 [facility] IN TIME 0 [place] [address] [facility] PHOSPHORU 0 Y Y S HOSPITAL HOSPITAL INORGANIC INITIAL 30445 [facility] 0 MEDICAL KER RAN CARE/DAY SERV 70 FOUNDATIO MINUTES BLOOD 07438 [facility] COUNT 0 Y Y [facility]PLETE [place] [address] [facility] UN[facility]ERS[facility] MAGNESIUM 0 Y Y HOSPITAL HOSPITAL BASIC 51030 [facility] METABOLIC 0 Y Y PANEL HOSPITAL HOSPITAL CALCIUM TOTAL RADIOLOGI 71092 [place] PULMANO C 0 MEDICAL SIRENA EXAMINATI SERV ON CHEST FOUNDATIO SING[place] FRONTAL BASIC 35765 [facility] METABOLIC 0 Y Y [facility]EL [facility] [address] [facility] MAGNESIUM 0 Y Y HOSPITAL HOSPITAL CREATINE 78519 [facility] KINASE 0 Y Y TOTAL HOSPITAL HOSPITAL CREATINE 25124 [facility]ERSIT KINASE MB 0 Y Y [place] [address] [facility]ERSIT UNIVERSIT TROPONIN 0 Y Y QUANTITAT HOSPITAL [facility] JOSE ALFREDO BLOOD 65816 [facility]ERSIT UNIVERSIT COUNT 0 Y Y [facility] [place] [address] [facility] UNIVERSIT PHOSPHORU 0 Y Y S HOSPITAL HOSPITAL INORGANIC PROTHROMB 60052 [facility] IN TIME 0 [place] [address] UNIVERSIT UNIVERSIT PHOSPHORU 0 Y Y S HOSPITAL HOSPITAL INORGANIC ECG 43301 [facility] ROUTINE 0 Y Y ECG HOSPITAL HOSPITAL W/LEAST 12 LDS TRCG ONLY W/O I&R BLOOD 53235 [facility] COUNT 0 Y Y COMPLETE [place] [address] UNIVERS UNIVERSIT 1/> AREAS 0 Y Y EA 15 HOSPITAL HOSPITAL MIN GAIT TRAINJ W/STAIR THERAPEUT 38617 [facility] ACTVITY 0 Y Y DIRECT PT HOSPITAL HOSPITAL CONTACT EACH [address] [place] [address] [facility] TROPONIN 0 Y Y QUANTITAT [facility] JOSE ALFREDO CREATINE [address] [facility] KINASE MB 0 Y Y [facility] [place] [address] UNIVERSIT UNIVERSIT MAGNESIUM 0 Y Y HOSPITAL HOSPITAL ECG 48833 [place] BLISS ROUTINE 0 MEDICAL NAN ECG SERV W/LEAST FOUNDATIO 12 LDS I&R ONLY BASIC 41294 [facility] METABOLIC 0 Y Y PANEL HOSPITAL HOSPITAL CALCIUM TOTAL RADIOLOGI 49899 [place] ABIGAIL REGLA C 0 MEDICAL EXAMINATI SERV ON CHEST FOUNDATIO [place] FRONTAL PHYSICAL 86861 [facility] THERAPY 0 Y Y RE-EVALUA [facility] TION RADIOLOGI 91140 [place] HILLMAN MJ C 0 MEDICAL EXAMINATI SERV ON CHEST FOUNDATIO [place] FRONTAL BASIC 61242 [facility]ERSIT METABOLIC 0 Y Y PANEL [facility] [place] [address] UNIVERSIT UNIVERSIT MAGNESIUM 0 Y Y HOSPITAL HOSPITAL BLOOD 05502 [facility] UNIVERSIT COUNT 0 Y Y COMPLETE HOSPITAL HOSPITAL AUTOMATED ECG 21373 [facility] UNIVERSIT ROUTINE 0 Y Y ECG HOSPITAL HOSPITAL W/LEAST 12 LDS TRCG ONLY W/O I&[place] [address] [facility] PHOSPHORU 0 Y Y S [place] [address] [facility] PHOSPHORU 0 Y Y S HOSPITAL HOSPITAL INORGANIC BLOOD 33303 [facility] COUNT 0 Y Y COMPLETE [facility] [place] [address] [facility] MAGNESIUM 0 Y Y HOSPITAL HOSPITAL GLUC BLD [address]0009 [facility] GLUC MNTR 0 Y Y DEV HOSPITAL HOSPITAL CLEARED FDA SPEC HOME USE RADIOLOGI 52892 [place] HILLMAN MJ C 0 MEDICAL EXAMINATI SERV ON CHEST FOUNDATIO [place] FRONTAL RADIOLOGI 62609 [place] ABIGAIL REGLA C 0 MEDICAL EXAMINATI SERV ON CHEST FOUNDATIO S[place] FRONTAL BASIC 22065 [facility] METABOLIC 0 Y Y PANEL [facility] CALCIUM TOTAL GLUC BLD 37037 [facility] GLUC MNTR 0 Y Y DEV HOSPITAL HOSPITAL CLEARED FDA SPEC HOME USE ECG 13035 [facility] ROUTINE 0 MEDICAL NAN ECG SERV W/LEAST FOUNDATIO 12 LDS [place] [address] [facility] MAGNESIUM 0 Y Y HOSPITAL [place] [address]696 [facility] FLUOR&RAD 0 MEDICAL IOGRAPY SERV RS&I FOUNDATIO BLOOD [address]70 [facility] COUNT 0 Y Y COMPLETE [facility] AUTOMATED SBSQ 99141 [facility] 0 MEDICAL JAYLYN CARE/DAY SERV 35 FOUNDATIO [place]ES INS [address]173 [facility] NEW/RPLCM 0 MEDICAL T PRM PM SERV W/TRANSV FOUNDATIO ELTRD ATRIAL&VE NT PREALBUMI 08805 [facility] N 0 [place] [address] [facility] PHOSPHORU 0 Y Y S HOSPITAL [facility] INORGANIC POTASSIUM 63450 [facility] SERUM 0 Y Y PLASMA/[facility] OLE BLOOD PROTHROMB 58094 [facility] IN TIME 0 Y Y HOSPITAL HOSPITAL ECG 83649 [facility] ROUTINE 0 Y Y ECG [facility] HOSPITAL W/LEAST 12 LDS TRCG ONLY W/O I&[place] [address] [facility] PHOSPHORU 0 Y Y S HOSPITAL HOSPITAL INORGANIC INITIAL 63422 [facility] HOSPITAL 0 MEDICAL CARE/DAY SERV 70 FOUNDATIO MINUTES BLOOD 84272 [facility] UNIVERSIT COUNT 0 Y Y COMPLETE [place] [address] [facility] UNIVERSIT MAGNESIUM 0 Y Y HOSPITAL HOSPITAL GASES 66810 [facility] BLOOD PH 0 Y Y DIRECT HOSPITAL HOSPITAL WILLEM XCPT PULSE OXIMITRY GLUC BLD 22779 [facility] GLUC MNTR 0 Y Y DEV HOSPITAL HOSPITAL CLEARED FDA SPEC HOME USE BASIC 56885 [facility] METABOLIC 0 Y Y PANEL HOSPITAL HOSPITAL CALCIUM TOTAL RADIOLOGI 88992 [place] KEANE C 0 MEDICAL KIRILL EXAMINATI SERV ON CHEST FOUNDATIO [place] FRONTAL CRITICAL 12556 [place] HESSELL CARE 0 MEDICAL EUGEN E ILL/INJUR SERV ED FOUNDATIO PATIENT INIT 30-74 MIN CRITICAL 80797 [place] HESSE[facility] CARE 0 MEDICAL EUGEN E ILL/INJUR SERV ED FOUNDATIO PATIENT INIT 30-74 MIN RADIOLOGI 49602 [place] PULMAN[place] C 0 MEDICAL SIRENA EXAMINATI SERV ON CHEST FOUNDATIO [place] FRONTAL BASIC 84113 [facility] METABOLIC 0 Y Y PANEL HOSPITAL HOSPITAL CALCIUM TOTAL GLUC BLD 03[address] [facility] UNIVERS GLUC MNTR 0 Y Y DEV HOSPITAL HOSPITAL [place] [address] [facility] UNIVERSIT MAGNESIUM 0 Y Y HOSPITAL [facility]OSPITAL GASES 43798 [facility] B[facility] Y DIRECT [facility] [place] XCPT PULSE OXIMITRY CONNECTIV [id number] [facility] UNIV[facility] E TISSUE 0 Y Y NON-[facility] HOSPITAL CATHETER C1729 [facility] UNIVERS DRAINAGE 0 Y Y HOSPITAL HOSPITAL BLOOD [address] [facility] COUNT 0 Y Y COMPLETE HOSPITAL HOSPITAL AUTOMATED PHYSICAL 55973 [facility] THERAPY 0 Y Y EVALUATIO [facility] N ANTIBODY 20618 [facility] IDENTIFIC 0 Y Y ATION [facility] [place] [address] [facility] PHOSPHORU 0 Y Y S [place] [address] [facility] PHOSPHORU 0 Y Y S HOSPITAL HOSPITAL INORGANIC POTASSIUM 05118 [facility] SERUM 0 Y Y PLASMA/WH HOSPITAL HOSPITAL OLE BLOOD ECG 5[address]15 [facility] ROUTINE 0 Y Y ECG HOSPITAL HOSPITAL W/LEAST 12 LDS TRCG ONLY W/O I&R BLOOD 28418 [facility] COUNT 0 Y Y COMPLETE [facility] AUTOMATED CATHETER C1729 [facility] DRAINAGE 0 Y Y HOSPITAL HOSPITAL BLOOD [address]36 [facility] COUNT 0 Y Y HEMATOCRI [facility] T GASES 86088 [facility] BLOOD PH 0 Y Y DIRECT [facility] [place] [address] [facility] MAGNESIUM 0 Y Y HOSPITAL HOSPITAL GLUC BLD [address] [facility] GLUC MNTR 0 Y Y DEV [facility] CLEARED FDA SPEC HOME USE HEMOGLOBI 43947 [facility] N 0 Y Y METHEMOGL [facility] OBIN QUANTITAT JOSE ALFREDO URNLS DIP 20372 [facility] 0 Y Y STICK/TAB HOSPITAL HOSPITAL LET REAGENT AUTO MICROSCOP Y ECG 83292 [place] ROUTINE 0 MEDICAL NAN ECG SERV W/LEAST FOUNDATIO 12 LDS I&R ONLY BASIC 91847 [facility] METABOLIC 0 Y Y PANEL [facility] CALCIUM TOTAL RADIOLOGI 87045 [place] LINO C 0 MEDICAL KIRILL EXAMINATI SERV ON CHEST FOUNDATIO [place] CRITICAL 29608 [place] [facility] 0 MEDICAL EUGEN E ILL/INJUR SERV ED FOUNDATIO PATIENT INIT 30-74 MIN CRITICAL 54562 [place] [facility] 0 MEDICAL EUGEN E ILL/INJUR SERV ED FOUNDATIO PATIENT INIT 30-74 MIN SBSQ 01882 [facility] 0 MEDICAL CARE/DAY SERV 25 FOUNDATIO MINUTES CULTURE 40712 [facility] TUBERCLE/ 0 Y Y OTH HOSPITAL HOSPITAL ACID-FAST BACILLI ANY ISOL SMR PRIM 15090 [facility] SRC 0 Y Y FLUORESCE [facility] NT&/AFS BCT FNGI PARASIT TISS OSBALDO 20831 [facility] SLIDE 0 Y Y [facility] SKN/HR/NL S FNGI/ECTO PARASIT CULTURE 71142 [facility] BACTERIAL 0 Y Y ANY HOSPITAL HOSPITAL SOURCE ANAEROBIC ISO&ID CUL BACT 60612 [facility] XCPT 0 Y Y URINE HOSPITAL HOSPITAL BLOOD/STO OL AEROBIC ISOL THROMBOPL 10378 [facility] ASTIN 0 Y Y TIME HOSPITAL HOSPITAL PARTIAL PLASMA/WH OLE BLOOD RADIOLOGI 71014 [place] LINO C 0 MEDICAL KIRILL EXAMINATI SERV ON CHEST FOUNDATIO [place] FRONTAL BASIC 87987 [facility] METABOLIC 0 Y Y PANEL [facility] CALCIUM TOTAL REVISION 3595 [facility] OF 0 Y Y CORRECTIV [facility] E PROCEDURE ON HEART ECG 35560 [place] ROUTINE 0 MEDICAL NAN ECG SERV W/LEAST FOUNDATIO 12 LDS I&R ONLY SPMTRY 63711 [facility] W/VC 0 Y Y EXPIRATOR [facility] HOSPITAL Y KARINE W/WO MXML VOL VNTJ URNLS DIP 00120 [facility] 0 Y Y STICK/TAB HOSPITAL HOSPITAL LET REAGENT AUTO MICROSCOP Y GLUC BLD 13405 [facility] GLUC MNTR 0 Y Y DEV [facility] HOSPITAL CLEARED FDA SPEC HOME USE GLUCOSE 61349 [facility] QUANTITAT 0 Y Y JOSE ALFREDO BLOOD [facility] [place] [address] [facility] MAGNESIUM 0 Y Y HOSPITAL HOSPITAL ANES HRT 18378 [place] PERICRD 0 MEDICAL OKS SAC&GRT SERV VSLS FOUNDATIO W/CODING SPEC OXTJ >1MO PO GASES 7[address] [facility] BLOOD PH 0 Y Y DIRECT HOSPITAL HOSPITAL WILLEM XCPT PULSE OXIMITRY DUPLEX 99735 [facility] SCAN 0 Y Y EXTRACRAN [facility]OSP[facility] IAL ART COMPL BI STUDY BLOOD 57210 [facility] COUNT 0 Y Y [facility] HOSPITAL T SMR PRIM 47619 [facility] SRC 0 Y Y GRAM/GIEM [facility] SA STAIN BCT FUNGI/KAIN L HOMOGENIZ 19989 [facility] ATION 0 Y Y TISSUE [facility] [place] [address] [facility] SURG 0 Y Y PATHOLOGY [facility] GROSS&KIRILL ROSCOPIC EXAM CATHETER C1729 [facility] DRAINAGE 0 Y Y HOSPITAL HOSPITAL CATHETER C1751 [facility] INFUS 0 Y Y INSRT [facility] PERIPHER LLY CNTRLLY/M IDLN GRAFT C1768 [facility] VASCULAR 0 Y Y [facility] BLOOD 97312 [facility] COUNT 0 Y Y COMPLETE [facility] AUTOMATED BLOOD 41411 [facility] COUNT 0 Y Y COMPLETE [facility] AUTO&AUTO DIFRNTL WBC RPLCMT 58403 [place] RAMAIDAVIE, PROST 0 MEDICAL IRON AORTIC SERV VALVE FOUNDATIO OPEN XCP HOMOGRF/S TENT SODIUM 60093 [facility] SERUM 0 Y Y PLASMA OR [facility] WHOLE BLOOD ROPRTJ 07271 [place] RAMAIDAV[place], CAB/VALVE 0 MEDICAL [facility] NAMED [facility] PX > 1 SERV MO AFTER FOUNDATIO ORIGINAL OPERJ ARTL 51830 [place] CATHJ/CAN 0 MEDICAL OKS NULJ SERV MNTR/HERNANDEZ FOUNDATIO SFUSION SPX PRQ ECG 38229 [facility] ROUTINE 0 Y Y ECG [facility] W/LEAST 12 LDS TRCG ONLY W/O I&R ECHO 95349 [place] OR TRANSESOP 0 MEDICAL MEDICAL HAG R-T SERV SERV 2D W/PRB FOUNDATIO FOUNDATIO IMG ACQUIS[place] [address] [facility] PHOSPHORU 0 Y Y S [facility] INORGANIC POTASSIUM 30062 [facility] SERUM 0 Y Y PLASMA/[facility] OLE BLOOD PROTHROMB 47472 [facility] IN TIME 0 Y Y [facility] CULTURE 93053 [facility] FNGI 0 Y Y MOLD/YEAS [facility] T PRSMPTV OTH XCPT BLOOD IADNA S 63578 [facility] AUREUS 0 Y Y [facility] IN RESIST AMP PROBE TQ SPECIAL 46700 [facility] STAIN 0 Y Y GROUP 1 [facility] MICROORGA NISMS I&R ANTIBODY 21381 [facility] ID RBC 0 [facility] S EA PANEL EA SERUM TQ BLOOD 24165 [facility] COUNT 0 Y Y COMPLETE HOSPITAL HOSPITAL AUTO&AUTO DIFRNTL WBC ANTIBODY 16323 [facility] SCREEN 0 Y Y RBC EACH HOSPITAL HOSPITAL SERUM TECHNIQUE BLOOD 84622 [facility] TYPING 0 Y Y SEROLOGIC HOSPITAL [facility] ABO SBSQ 18040 [facility] 0 MEDICAL VEE CARE/DAY SERV 15 FOUNDATIO MINUTES THROMBOPL 89451 [facility] UN[facility]ERS ASTIN 0 Y Y TIME HOSPITAL HOSPITAL PARTIAL PLASMA/WH OLE BLOOD BLOOD 60443 [facility] TYPING 0 Y Y SEROLOGIC HOSPITAL [facility] RH (D) BLOOD 05599 [facility] TYPING 0 Y Y RBC HOSPITAL HOSPITAL ANTIGENS OTH/THN ABO/RH D EACH COMPATIBI 32978 [facility] LITY EACH 0 Y Y UNIT [facility] JUAN JOSE SBSQ 90455 [facility] 0 MEDICAL CARE/DAY SERV 25 FOUNDATIO MINUTES THROMBOPL 26387 [facility] ASTIN 0 Y Y TIME HOSPITAL HOSPITAL PARTIAL PLASMA/WH OLE BLOOD BASIC 79627 [facility] METABOLIC 0 Y Y PANEL HOSPITAL HOSPITAL CALCIUM TOTAL BLD BANK 11455 OR [facility] 0 MEDICAL DEN DIFFC SERV CROSS FOUNDATIO MATCH&/EV AL REP INITIAL 66421 [facility] 0 MEDICAL VEE CARE/DAY SERV 50 FOUNDATIO MINUTES BLOOD 88718 [facility] COUNT 0 Y Y COMPLETE HOSPITAL HOSPITAL AUTO&AUTO DIFRNTL WBC INITIAL 86738 [facility] 0 MEDICAL CARE/DAY SERV [address] THORAX 37732 [facility] W/O 0 Y Y CONTRAST HOSPITAL [facility] MATERIAL LIPID 25533 [facility] UNIVERS PANEL 0 Y Y HOSPITAL [facility] RADIOLOGI 61804 [facility] C EXAM 0 Y Y CHEST 2 [facility] VIEWS FRONTAL&L ATERAL URNLS DIP 27124 [facility] UNIVERS 0 Y Y STICK/TAB [facility] LET REAGENT AUTO MICROSCOP Y I SI&R 67573 [facility] F/NJX PX 0 Y Y DURING HOSPITAL [facility] C-CATHJ PULM&/[place] [address] [facility] C-CATHJ 0 Y Y F/SLCTV C [facility] ANGRPH PROTHROMB 35642 [facility] IN TIME 0 Y Y [facility] RIGHT [address] [facility] HEART 0 Y Y CATHETERI [facility] [place] [address] [facility] C-CATHJ 0 Y Y F/AORTOGR [facility] APY CLOSURE C1760 [facility] DEVICE 0 Y Y VASCULAR [facility] BLOOD 17945 [facility] COUNT 0 Y Y COMPLETE [facility] [place] [address] [facility] THYROID 0 Y [facility] TSH BASIC 17159 [facility] METABOLIC 0 Y Y PANEL [facility] CALCIUM TOTAL GASES 81943 [facility]LOOD O2 0 Y Y [facility] N ONLY DIRECT WILLEM ILIAC&/FE G0278 [facility] M ART 0 Y Y ANGIO [facility] NONSEL AT TIME CARD CATH THROMBOPL 03147 [facility] ASTIN 0 Y Y TIME HOSPITAL [facility] PARTIAL PLASMA/WH OLE BLOOD ARTERIOGR 8847 [facility] APHY OF 0 Y Y OTHER HOSPITAL HOSPITAL INTRA-ABD OMINAL ARTERIES CORONARY 8856 [facility] ARTERIOGR 0 Y Y APHY [facility] USING TWO CATHETERS RIGHT 3721 [facility] HEART 0 Y Y CARDIAC [facility] CATHETERI ZATION AORTOGRAP 8842 [facility] HY 0 Y Y HOSPITAL HOSPITAL GUIDE C1769 [facility] WIRE 0 Y Y HOSPITAL HOSPITAL O2 CONC 1 E1390 [facility] [place] 0 HOME MED HOME MED 85%/>02 EQUIP. EQUIP. CONC AT [facility] 81885 [facility] DISCHARGE 0 LACEY LACEY DAY MANAGEMEN T 30 MIN/< PRTBLE E0431 JANAE JANAE GASEOUS 0 HOME MED HOME MED O2 SYS EQUIP. EQUIP. RENT; [facility] FLWMTR HUMIDFR&M ASK SBSQ 54995 [facility] 0 LACEY LACEY CARE/DAY 25 MINUTES RADEX ABD 13281 [facility] COMPL 0 MJ AQT ABD RADIOLOGY W/S/E/D ASSOCIAT VIEWS 1 VIEW CH ECG 73210 [facility] ROUTINE 0 , CHANA , CHANA ECG W/LEAST 12 LDS I&R ONLY INITIAL 95642 [facility] 0 LACEY LACEY CARE/DAY 50 MINUTES ECHO 57543 [facility] TRANSESOP 0 MEDICAL HAG R-T SERV 2D W/PRB FOUNDATIO IMG ACQUISJ I&R DOP 37372 MARLON EVANGELISTA CHANCE ECHOCARD 0 MEDICAL COLOR SERV FLOW FOUNDATIO VELOCITY MAPPING DOPPLER 68898 [place] JEAN CARLOS PETEU ECHOCARD 0 MEDICAL PULSE SERV WAVE FOUNDATIO W/SPECTRA L DISPLAY O2 CONC 1 E1390 [facility] [place] 0 HOME MED HOME MED 85%/>02 EQUIP. EQUIP. CONC AT [facility] PRTBLE E0431 JANAE JANAE GASEOUS 0 HOME MED HOME MED O2 SYS EQUIP. EQUIP. RENT; [facility] FLWMTR HUMIDFR&M ASK ECHO 57699 [facility] TTHRC R-T 0 Y Y 2D [facility] HOSPITAL W/WOM-MOD E COMPL SPEC&COLR D CREATINE 27818 [facility] KINASE 0 Y Y TOTAL HOSPITAL HOSPITAL LIPID 35727 [facility] PANEL 0 Y Y HOSPITAL HOSPITAL COMPREHEN 01213 [facility] SIVE 0 Y Y METABOLIC HOSPITAL HOSPITAL PANEL PROTHROMB 30122 [facility] IN TIME 0 [place] [address] [facility] THYROID 0 Y Y STIMULATI [facility] NG HORMONE TSH BLOOD 02789 [facility] COUNT 0 Y Y COMPLETE [facility] AUTOMATED COLLECTIO 94246 [facility] N VENOUS 0 Y Y BLOOD [facility] [place] [address] [facility] FREE 0 Y Y THYROXINE [facility] BLOOD 24776 [facility] COUNT 0 [facility] COMPLETE AUTO&AUTO DIFRNTL WBC LIPOPROTE 28971 [facility] IN (A) 0 Y Y [facility] URNLS DIP 61847 RINALDINI RINALDINI 0 , CHANA , CHANA STICK/TAB LET RGNT AUTO W/O MICROSCOP Y PRTBLE E0431 JANAE JANAE GASEOUS 0 HOME MED HOME MED O2 SYS EQUIP. EQUIP. RENT; [facility] HUMIDFR&M ASK O2 CONC 1 E1390 [facility] [place] [place] 0 HOME MED HOME MED 85%/>02 EQUIP. EQUIP. CONC AT [facility] O2 CONC 1 E1390 [facility] [place] 0 HOME MED HOME MED 85%/>02 EQUIP. EQUIP. CONC AT [facility] PRTBLE E0431 JANAE JANAE GASEOUS 0 HOME MED HOME MED O2 SYS EQUIP. EQUIP. RENT; [facility] FLWNER HUMIDFR&M ASK LIPID 26892 [facility] PANEL 0 Y Y [facility] [address] [facility] TROPONIN 0 Y Y QUANTITAT [facility] JOSE ALFREDO BLOOD 16694 [facility] COUNT 0 Y Y [facility] AUTOMATED INITIAL 29539 [facility] 0 MEDICAL , CARE/DAY SERV DEBABRATA 70 FOUNDATIO [address] BASIC 89291 [facility] METABOLIC 0 Y Y [facility] CALCIUM TOTAL THROMBOPL 80062 [facility] ASTIN 0 Y Y TIME HOSPITAL HOSPITAL PARTIAL PLASMA/ OLE BLOOD THROMBOPL 38556 [facility] UNIVERS ASTIN 0 Y Y TIME HOSPITAL HOSPITAL PARTIAL PLASMA/[place] B[place] [address] NEW NEW INFUSION 0 [facility] THERAPY MED CTR MED CTR PROPHYLAX IS/DX EA HOUR CRITICAL 70752 ACUTE [facility], CARE 0 CARE PERKINS ILL/INJUR BILLING [facility] PATIENT INIT 30-[address] [facility] METABOLIC 0 Y Y PANEL [facility] CALCIUM TOTAL 3D 43643 NEW NEW RENDERING 0 [facility] MED CTR MED CTR W/INTERP& POSTPROC DIFF WORK STATION BLOOD 35683 NEW NEW COUNT 0 [facility] SMEAR MED CTR MED CTR MCRSCP W/MNL DIFRNTL WBC COUNT AMB A0422 TRACY MOLINA OXYGEN&O2 0 [facility] SUPPLIES LIFE LIFE LIFE SQUAD SQUAD SUSTAININ G SITUATION CT THORAX 00329 [facility] 0 Y Y W/[facility] T MATERIAL AMB A0427 TRACY MOLINA SERVICE 0 [facility] ALS LIFE LIFE EMERGENCY SQUAD SQUAD TRANSPORT LEVEL 1 IV NFS 18291 NEW NEW THERAPY 0 [facility] PROPHYLAX MED CTR MED CTR IS/DX CONCURREN T NFS PROTHROMB 40107 [facility] IN TIME 0 Y Y [facility] HOSPITAL GROUND A0425 TRACY MOLINA MILEAGE 0 [facility] PER LIFE LIFE STATUTE SQUAD SQUAD MILE COLLECTIO 51955 NEW NEW N VENOUS 0 [facility] BLOOD MED [place] [address] [facility] TROPONIN 0 Y Y [facility] JOSE ALFREDO BLOOD 96957 NEW NEW COUNT 0 [facility] COMPLETE MED CTR MED CTR AUTO&[place] [address] NEW NEW INFUSION 0 [facility] THERAPY/P MED CTR MED CTR ROPHYLAXI S /DX 1ST TO 1 HR COMPREHEN 49774 NEW NEW SIVE 0 [facility] METABOLIC MED CTR MED CTR PANEL URNLS DIP 90711 NEW NEW 0 [facility] STICK/TAB MED CTR MED CTR LET RGNT AUTO W/O MICROSCOP Y CREATINE 04717 [facility] KINASE MB 0 Y Y FRACTION [facility] HOSPITAL ONLY CREATINE 93655 [facility] KINASE 0 Y Y TOTAL [facility] CT THORAX 74692 NEW NEW W/O 0 [facility] CONTRAST MED CTR MED CTR MATERIAL ECG 91938 [facility] ROUTINE 0 Y Y ECG [facility] W/LEAST 12 LDS TRCG ONLY W/O I&R RADIOLOGI 14944 NEW NEW C 0 [facility] EXAMINATI MED CTR MED CTR ON CHEST SINGLE VIEW FRONTAL LOCM Q9967 [facility] [phone] 0 Y Y MG/ML [facility] IODINE CONCENTRA TION PER ML ECG 09109 Aguilar DEL CID ROUTINE 0 MEDICAL ECG SERV W/LEAST FOUNDATIO 12 LDS I&R ONLY HEPATIC 71183 [facility] FUNCTION 0 Y Y PANEL [facility] COLLECTIO 19630 [facility] N VENOUS 0 , CHANA , CHANA BLOOD VENIPUNCT URE PROTHROMB 85310 [facility] IN TIME 0 [facility] 41554 [facility] DISCHARGE 0 , CHANA , CHANA DAY MANAGEMEN T > 30 MIN SBSQ 27670 [facility] 0 , CHANA , CHANA CARE/DAY 25 MINUTES ECG 21086 [facility] , CHANA , CHANA ECG W/LEAST 12 LDS I&R ONLY RADIOLOGI 82088 [facility] Aguilar [place] 0 LUPE S EXAMINATI RADIOLOGY ON CHEST SINGLE ASSOCIATE VIEW S PSC FRONTAL INITIAL 83197 [facility] 0 , CHANA , CHANA CARE/DAY 50 MINUTES PRTBLE E0431 JANAE CARDOSO GASEOUS 0 HOME MED HOME MED O2 SYS EQUIP. EQUIP. RENT; [facility] FLWMTR HUMIDFR&M ASK O2 CONC 1 E1390 [facility]E [place] [place] 0 HOME MED HOME MED 85%/>02 EQUIP. EQUIP. CONC AT [facility] COLLECTIO 20495 [facility] N VENOUS 0 , CHANA , CHANA BLOOD VENIPUNCT URE PROTHROMB 30576 [facility] IN TIME 0 [place] [facility] INC PRTBLE E0431 JANAE CARDOSO GASEOUS 0 HOME MED HOME MED O2 SYS EQUIP. EQUIP. RENT; [facility] FLWMTR HUMIDFR&M ASK O2 CONC 1 E1390 [facility]E [facility] [place] 0 HOME MED HOME MED 85%/>02 EQUIP. EQUIP. CONC AT [facility] RATE DUP-SCAN 24681 [facility] VEINS 0 LUPE S RADIOLOGY UNILATERA L/LIMITED ASSOCIATE STUDY S PSC PROTHROMB 00231 NEW NEW IN TIME 0 [facility] MED CTR MED CTR COLLECTIO 98554 NEW NEW N VENOUS 0 [facility] BLOOD MED CTR MED CTR VENIPUNCT URE BLOOD 12936 NEW NEW COUNT 0 [facility] COMPLETE MED CTR MED CTR AUTO&AUTO DIFRNTL WBC BASIC 22008 NEW NEW METABOLIC 0 [facility] PANEL MED CTR MED CTR CALCIUM TOTAL THROMBOPL 61774 NEW NEW ASTIN 0 [facility] TIME MED CTR MED CTR PARTIAL PLASMA/WH [facility] 98119 [facility], DISCHARGE 0 HEART LUPE DAY SPEC MANAGEMEN T 30 MIN/< SBSQ 30132 [facility] 0 HEART LU[facility] CARE/DAY SPEC 25 MINUTES INITIAL 58193 [facility] 0 CARDIOTHO [facility] CARE/DAY RACIC 70 [place] [address] [facility], C-CATHJ 0 HEART LU[facility] F/AORTOGR SPEC APY DUP-SCAN [address] [facility], LXTR 0 HEART LUPE ART/ARTL SPEC BPGS UNI/LMTD STUDY ECHO 94318 [facility], TTHRC R-T 0 HEART LUPE 2D SPEC W/WOM-MOD E COMPL SPEC&COLR D I SI&R 78551 [facility], F/NJX PX 0 HEART LUPE DURING SPEC C-CATHJ PULM&/OR SELECT L [place]RT [address] [facility], CATHETERI 0 HEART LUPE ZATION SPEC [place] [address] [facility], C-CATHJ 0 HEART LUPE F/SLCTV C SPEC ANGRPH ECG 58165 [facility], ROUTINE 0 [facility] ECG CLINIC W/LEAST PSC 12 LDS I&R ONLY SBSQ 59299 [facility] 0 HEART LUPE CARE/DAY SPEC 25 MINUTES RADIOLOGI 30575 CN[place] ADRY, C 0 RADIOLOGY DANITZA R EXAMINATI ON CHEST SINGLE VIEW FRONTAL SBSQ 85280 [facility] 0 HEART LU[place] CARE/DAY SPEC 25 MINUTES ECG 68595 [facility], ROUTINE 0 [facility] ECG CLINIC W/LEAST PSC 12 LDS I&R ONLY ECG 19190 SARAH FAIRCHILDMAN ROUTINE 0 [facility] ECG CLINIC J W/LEAST PSC 12 LDS I&R ONLY URINALYSI 11328 NEW NEW S 0 [facility] MICROSCOP MED CTR MED CTR IC ONLY IMMUNOASS 38027 NEW NEW AY 0 [facility] ANALYTE MED CTR MED CTR QUANTITAT JOSE ALFREDO NOS RADIOLOGI 88516 [facility]ZER, C 0 RADIOLOGY PETER M EXAMINATI INC ON CHEST SINGLE VIEW FRONTAL CREATINE 81885 NEW NEW KINASE 0 [facility] TOTAL MED CTR MED CTR URNLS DIP 03665 NEW NEW 0 [facility] STICK/TAB MED CTR MED CTR LET RGNT AUTO W/O MICROSCOP Y CREATINE 18747 NEW NEW KINASE MB 0 [facility] FRACTION MED CTR MED CTR ONLY COMPREHEN 79546 NEW NEW SIVE 0 [facility] METABOLIC MED CTR MED CTR PANEL AMBULANCE A0429 [facility] M[facility] SERVICE 0 [facility] EMERGENCY SQUAD SQUAD TRANSPORT GROUND A0425 TRACY MOLINA MILEAGE 0 [facility] PER LIFE LIFE STATUTE SQUAD SQUAD MILE INITIAL 13983 [facility] 0 HEART LUPE CARE/DAY SPEC 70 MINUTES PROTHROMB 86046 NEW NEW IN TIME 0 [facility] MED CTR MED CTR FIBRIN 68134 NEW NEW DGRADJ 0 [facility] PRODUCTS MED CTR MED CTR D-DIMER QUAL/SEMI KRYSTYNA BLOOD 03171 NEW NEW COUNT 0 [facility] COMPLETE MED CTR MED CTR AUTO&[place] [address] NEW NEW TROPONIN 0 [facility] QUANTITAT MED CTR MED CTR JOSE ALFREDO COLLECTIO 97434 NEW NEW N VENOUS 0 [facility] BLOOD MED CTR MED CTR VENIPUNCT URE THROMBOPL 84514 NEW NEW ASTIN 0 [facility] TIME MED CTR MED CTR PARTIAL PLASMA/WH OLE BLOOD COLLECTIO 83269 [facility] N VENOUS 0 , CHANA , CHANA BLOOD VENIPUNCT URE PROTHROMB 52901 [facility] IN TIME 0 [facility] 78210 [facility] 0 , CHANA , CHANA DAY MANAGEMEN T > 30 MIN SBSQ 32542 [facility] 0 , CHANA , CHANA CARE/DAY 25 MINUTES SBSQ 11355 [facility] 0 , CHANA , CHANA CARE/DAY 35 MINUTES ECG 54477 [facility] ROUTINE 0 , CHANA , CHANA ECG W/LEAST 12 LDS I&R ONLY INITIAL 19345 [facility] 0 , CHANA , CHANA CARE/DAY 70 MINUTES PROTHROMB 20826 [facility] IN TIME 9 [facility] [place] [address] [facility] THYROID 9 [facility] STIMULATI NG HORMONE TSH BLOOD 28689 [facility] COUNT 9 [facility] COMPLETE AUTO&AUTO DIFRNTL WBC COLLECTIO 43814 [facility] N VENOUS 9 , CHANA , CHANA BLOOD VENIPUNCT URE COMPREHEN 80833 [facility] SIVE 9 [facility] METABOLIC PANEL LIPID 96102 [facility] PANEL 9 [facility] COLLECTIO 03854 [facility] TAMIALDINI N VENOUS 9 , CHANA , CHANA BLOOD VENIPUNCT URE PROTHROMB 30936 [facility] IN TIME 9 [facility] ADMINISTR G0008 [facility] ATION OF 9 , FERNANDO M , FERNANDO M INFLUENZA VIRUS VACCINE IIV3 83449 [facility] VACCINE 9 , FERNANDO M , FERNANDO M SPLIT VIRUS 0.5 ML DOSAGE IM USE PROTHROMB 49512 [facility] IN TIME 9 [facility] RADIOLOGI 25762 [facility] 9 EICARLOS, EXAMINATI RADIOLOGY DES ON CHEST K [employer]ING[employer] VIEW S PSC FRONTAL PROTHROMB 74125 [facility] IN TIME 9 [facility] PROTHROMB 73089 [facility] IN TIME 9 [place] [place] [address] [facility] THYROID 9 [facility] STIMULATI NG HORMONE TSH DRUG 57055 [facility] SCREEN 9 [facility] QUANTITAT JOSE ALFREDO DIGOXIN TOTAL OPHTH 43569 GAEL MAYO, MEDICAL 9 [facility] XM&EVAL COMPRE NEW PT 1/> VST DETERMINA 79147 GAEL MAYO TINILSA 9 [place] [address] SUSAN DAVIS INFUSION 9 [facility] THERAPY/P INC INC ROPHYLAXI S /DX 1ST TO 1 HR INITIAL 74841 [facility] SCHMIDT OBSERVATI 9 , CHANA , CHANA ON CARE/DAY 50 MINUTES INITIAL 81029 [facility] 9 , CHANA , CHANA CARE/DAY 70 MINUTES PROTHROMB 63438 [facility] IN TIME 9 [facility] DRUG 81833 [facility] SCREEN 9 [facility] INC QUANTITAT JOSE ALFREDO DIGOXIN TOTAL PROTHROMB 79241 [facility] COLLECTIO 41557 [facility] N VENOUS 9 [facility] VENIPUNCT URE DEBRIDEME 03535 LAUSE, LAUSE, NT NAIL 9 ALLYSON ALLYSON ANY V V METHOD 6/> COLLECTIO 67411 [facility] N VENOUS 9 [facility]LOOD [facility] [place] [address] [facility] TROPONIN 9 [facility] JOSE ALFREDO CREATINE 04308 [facility] KINASE 9 [facility] ECG 20886 [facility] ROUTINE 9 [facility]PITAL W/LEAST 12 LDS TRCG ONLY W/O I&R CREATINE 60082 [facility] KINASE MB 9 [facility] ONLY MYOGLOBIN 25923 [facility] HEPATIC 59073 [facility] FUNCTION 9 [facility] LIPID 84976 [facility] PANEL [facility] DRUG 98869 [facility] SCREEN 9 [facility] JOSE ALFREDO DIGOXIN TOTAL COLLECTIO 46619 [facility] Lambert VENOUS 9 [facility]LO[facility] [place] [address] [facility] THYROID 9 [facility] NG HORMONE TSH PROTHROMB 97921 [facility] IN TIME 9 [facility] BASIC 29984 [facility] METABOLIC 9 [facility] [address] [facility] THYROID 9 [facility] NG HORMONE TSH COLLECTIO 24808 [facility] N VENOUS 9 [place] [facility] VENIPUNCT URE PROTHROMB 77112 [facility] IN TIME 9 [facility] PROTHROMB 09673 [facility] IN TIME 9 [facility] COLLECTIO 43938 [facility] N VENOUS 9 [place] [facility] [facility] VENIPUNCT URE COLLECTIO 92696 [facility] N VENOUS 8 [place] [facility] VENIPUNCT URE PROTHROMB 53175 [facility] IN TIME 8 [facility] LIPID 33012 [facility] PANEL 8 [facility] HEPATIC 71225 [facility] FUNCTION 8 CO CO [facility] BASIC 05742 [facility] METABOLIC 8 CO [facility] CALCIUM TOTAL COMPREHEN 50294 [facility] SIVE 8 [place] METABOLIC [facility] PANEL DRUG 89469 [facility] SCREEN 8 [place] QUANTITAT [facility] JOSE ALFREDO DIGOXIN TOTAL ECG 28125 [facility] ROUTINE 8 [place] ECG [facility] W/LEAST 12 LDS TRCG ONLY W/O I&R COLLECTIO 53905 KENN[facility]Y Lambert VENOUS 8 [place] BLOOD [facility] [place] [address] [facility] THYROID 8 CO CO STIMULATI [facility] NG HORMONE TSH BLOOD 64440 [facility] COUNT 8 CO CO COMPLETE [facility] AUTO&AUTO DIFRNTL WBC COLLECTIO 55311 [facility] Lambert VENOUS 8 [place] BLOOD [facility] VENIPUNCT URE PROTHROMB 80226 [facility] IN TIME 8 [facility] DEBRIDEME 92510 LAUSE, LAUSE, NT NAIL 8 ALLYSON ALLYSON ANY V V METHOD 6/> PROTHROMB 83043 [facility] IN TIME 8 [facility] COLLECTIO 22426 [facility] N VENOUS 8 CO CO BLOOD [facility] [place] [address] [facility] THYROID 8 CO [facility]OSP[facility] NG HORMONE TSH COLLECTIO 04505 [facility] N VENOUS 8 [place] BLOOD [facility] VENIPUNCT URE PROTHROMB 17489 [facility] IN TIME 8 [facility]PITAL DRUG 40437 [facility] SCREEN 8 CO CO QUANTITAT [facility] JOSE ALFREDO DIGOXIN TOTAL LIPID 56772 [facility] PANEL 8 [facility] HEPATIC 53400 [facility] FUNCTION 8 CO [facility] BASIC 46732 [facility] METABOLIC 8 CO [facility] CALCIUM TOTAL PROTHROMB 79385 [facility] IN TIME 8 CO [facility] COLLECTIO 71002 [facility] BE[facility] N VENOUS 8 [place] BLOOD [facility] [place] [address] [facility] ZINC 8 CO [facility] COLLECTIO 44481 [facility] N VENOUS 8 [place] BLOOD [facility] VENIPUNCT URE PROTHROMB 13227 [facility] BENAVIDES IN TIME 8 [facility] COLLECTIO 09483 [facility] BENAVIDES N VENOUS 8 CO [facility] BLOOD [facility] VENIPUNCT URE DRUG 60316 [facility] BENAVIDES SCREEN 8 CO CO QUANTITAT [facility] JOSE ALFREDO DIGOXIN TOTAL COLLECTIO 06941 [facility] BENAVIDES N VENOUS 8 CO WY BLOOD [facility] VENIPUNCT URE PROTHROMB 47806 [facility] BENAVIDES IN TIME 8 [facility] HOSPITAL PROTHROMB 97975 [facility]VIDES IN TIME 8 [facility] HOSPITAL COLLECTIO 38742 KENN[facility] BENAVIDES N VENOUS 8 CO W[facility] BLOOD [facility] VENIPUNCT URE LIPID 99128 [facility] PANEL 8 [facility]PITAL HEPATIC 29128 [facility] FUNCTION 8 [facility] BASIC 70287 [facility] METABOLIC 8 [facility] CALCIUM TOTAL COLLECTIO 35746 [facility] N VENOUS [address] [facility] VENIPUNCT URE PROTHROMB 71058 [facility] BENAVIDES IN TIME 8 [facility] G0378 SUSAN DAVIS OBSERVATI 8 MEM [facility] ON INC INC SERVICE PER HOUR HOSPITAL G0378 SUSAN DAVIS OBSERVATI 8 [facility] ON INC INC SERVICE PER HOUR [place] [address] [place] FORTUNE, PY FLX DX 8 MEDICAL CHAVA W/COLLJ SERV SPE[place] N[place] 73042 SUSAN DAVIS THER 8 [facility] PROPH/DX INC INC 1ST >1 HR [place] 4523 SUSAN DAVIS PY 8 [facility] INC INC DEBRIDEME 01726 LAUSE, LAUSE, NT NAIL 8 ALLYSON ALLYSON ANY V V METHOD 6/> PROTHROMB 78920 [facility] BENAV[facility]ES IN TIME 8 [facility] COLLECTIO 63336 [facility] N VENOUS [address] [facility] VENIPUNCT URE COLLECTIO 26368 [facility] BENAVIDES N VENOUS [address] [facility] VENIPUNCT URE PROTHROMB 96557 [facility] BENAVIDES IN TIME 8 [facility] BLOOD 77282 [facility] OCCULT 8 [facility] E ACTV QUAL FECES 1 DETER PROTHROMB 34163 [facility] BENAVIDES IN TIME 8 [facility] COLLECTIO 48314 [facility] N VENOUS [address] [facility] VENIPUNCT URE RADIOLOGI 73489 Aguilar BANKS 8 LUPE Fuentes EXAMINATI RADIOLOGY ON PELVIS 1/2 ASSOCIATE VIEWS S PSC RADEX 13743 LOKI DURHAM SACRUM & 8 LUPE Fuentes COCCYX RADIOLOGY MINIMUM 2 VIEWS ASSOCIATE S PSC SCREENING 68166 LOKI DURHAM, 8 LUPE S MAMMOGRAP RADIOLOGY [place] [address] LOKI DURHAM, HEAD/BRAI 8 LUPE S N W/O RADIOLOGY CONTRAST MATERIAL ASSOCIATE S PSC OTHER 7840 [facility] REPAIR/PL 8 [facility] OPERATION S BONE UNSPEC SITE COLLECTIO 04187 [facility] N VENOUS [address] [facility] VENIPUNCT URE PROTHROMB 75787 [facility] BENAVIDES IN TIME 8 [place] [address] [facility]NAV[facility] THYROID 8 [facility] NG HORMONE TSH COLLECTIO 65180 [facility] BENAVIDES N VENOUS [address] [facility] VENIPUNCT URE DRUG 80785 [facility] SCREEN 8 [facility] JOSE ALFREDO DIGOXIN TOTAL LIPID 93174 [facility] PANEL 8 [facility] HEPATIC 99834 [facility] FUNCTION 8 [facility] BASIC 19698 [facility] METABOLIC 8 [facility] CALCIUM TOTAL COLLECTIO 37500 [facility]ES N VENOUS [address] [facility] VENIPUNCT URE PROTHROMB 35652 [facility] BENAVIDES IN TIME 8 [facility] PROTHROMB 99490 [facility] BENAVIDES IN TIME 8 [facility] COLLECTIO 05370 [facility] BENAVIDES N VENOUS [address] [facility] VENIPUNCT URE DEBRIDEME 30902 LAUSE, LAUSE, NT NAIL 8 ALLYSON ALLYSON ANY V V METHOD 6/> PROTHROMB 53106 [facility] BENAVIDES IN TIME 8 [facility] COLLECTIO 03168 [facility] N VENOUS [address] [facility] VENIPUNCT URE Encounters Encounter Start End Date Code Location Performer Type Date OFFICE 63497 RUIZ OUTPATIEN 7 7 GERALDO T VISIT 25 PHYSICIAN MINUTES [facility] ST - OTHER 7 7 [facility] EMERGENCY DEPARTMENT E EDGE OFFICE 54056 ST RUIZ OUTPATIEN 7 7 GERALDO T VISIT 15 PHYSICIAN MINUTES [facility] SUSAN - 7 7 [facility] OUTPATIEN INC T OFFICE [address]223 [facility] RUIZ OUTPATIEN 7 7 GERALDO T VISIT 15 PHYSICIAN MINUTES S OFFICE 09676 [facility] RUIZ OUTPATIEN 7 7 GERALDO T VISIT 15 PHYSICIAN MINUTES S OFFICE 24959 DERMATOLO REYNALDO OUTPATIEN 7 7 GY T NEW 20 CONSULTAN MINUTES TS [facility] OFFICE 04308 ST RUIZ OUTPATIEN 7 7 GERALDO T VISIT 15 PHYSICIAN MINUTES [facility] ST. ACCESS 7 7 [facility] ADDIE OFFICE [address] [facility] WILLOBY OUTPATIEN 7 7 GERALDO T VISIT 15 PHYSICIAN MINUTES S OFFICE 10573 [facility] RUIZ OUTPATIEN 6 6 GERALDO SUSIE T VISIT 15 PHYSICIAN MINUTES S OFFICE 81641 [facility] RUIZ OUTPATIEN 6 6 GERALDO SUSIE T VISIT 15 PHYSICIAN MINUTES [facility] ST - OTHER 6 6 GERALDO MED CTR STAFF DEVELOPMENT EDUCATOR ST OFFICE 69028 ST RUIZ OUTPATIEN 6 6 GERALDO SUSIE T VISIT 15 PHYSICIAN MINUTES S OFFICE 25115 [facility] RUIZ OUTPATIEN 6 6 GERALDO SUSIE T VISIT 25 PHYSICIAN MINUTES HOSPITAL UNIVERSIT - 6 6 Y OUTPATI HOSPITAL T EMERGENCY 75387 UNIVERSIT DEPT 6 6 Y VISIT HOSPITAL HIGH SEVERITY& THREAT FUNCJ OFFICE 09282 [facility] OUTPATIEN 6 6 GERALDO KIRILL T VISIT 15 PHYSICIAN MINUTES S OFFICE 77635 [facility] OUTPATIEN 6 6 GERALDO KIRILL T VISIT 15 PHYSICIAN MINUTES S OFFICE 30883 [facility] RUIZ OUTPATIEN 6 6 GERALDO SUSIE T VISIT 15 PHYSICIAN MINUTES S [facility] ST - OTHER 6 6 GERALDO MED CTR STAFF DEVELOPMENT EDUCATOR ST EMERGENCY 93661 [place] EMANUEL 6 6 MEDICAL GUILHERME DEPARTMEN SERV T VISIT FOUNDATIO HIGH/URGE N NT SEVERITY OFFICE 75742 [place] MESSERLI OUTPATIEN 6 6 MEDICAL ADR T VISIT SERV 15 FOUNDATIO MINUTES N OFFICE [address] [facility] RUIZ OUTPATIEN 6 6 GERALDO SUSIE T VISIT [address] ACCESS 6 6 [facility] UNIVERSIT - 6 6 Y INPATIENT HOSPITAL OFFICE 23842 [facility] RUIZ OUTPATIEN 6 6 GERALDO SUSIE T VISIT [address] ACCESS 6 [address] [facility] - 6 6 GERALDO OUTPATIEN EMELINA T EMERGENCY 96141 ST. 6 6 GERALDO DEPARTMEN EMELIAN T VISIT MODERATE SEVERITY OFFICE 60287 ST THRELKELD OUTPATIEN 6 6 GERALDO II QUENTIN T VISIT [address] ACCESS 6 6 [facility] ADDIE OFFICE 09836 MARLON GERMÁN JR OUTPATIEN 6 6 MEDICAL THO T VISIT SERV 15 FOUNDATIO MINUTES N EMERGENCY 05135 MARLON DIANE DEPT 6 6 MEDICAL THERESA VISIT SERV HIGH FOUNDATIO SEVERITY& N THREAT [facility] - [facility] T [facility]ERGENC[facility] 64718 [facility] DEPT 6 6 GERALDO VISIT ADDIE HIGH SEVERITY& THREAT COUNTS INCLUDE 234 [facility] OFFICE 04382 [facility] 5 5 GERALDO II QUENTIN T VISIT 15 PHYSICIAN MINUTES [facility] - 5 N OUTPATIEN COMMUNTIY T [facility]OSPITA [facility] CHANCE VISIT EMERGENCY HIGH PHYS SEVERITY& THREAT [facility] ST OTHER 5 5 GERALDO MED CTR STAFF DEVELOPMENT EDUCATOR OFFICE 18618 [facility] 5 5 GERALDO SUSIE T VISIT 25 PHYSICIAN MINUTES S OFFICE 64427 [facility] 5 5 GERALDO KIRILL T VISIT 15 PHYSICIAN [facility] 5 5 [facility] T EMERGENCY 40105 [facility] 5 [facility] VISIT MED CTR HIGH SEVERITY& THREAT [facility] [place] [address] 5 N OUTPATIEN COMMUNTIY T HOSPITA EMERGENCY 01723 [facility] 5 5 CAMILLA CHANCE DEPARTMEN EMERGENCY T VISIT PHYS HIGH/URGE NT SEVERITY [facility] - 5 5 [facility] 5 [facility] T EMERGENCY 16890 NEW 5 5 [facility] T VISIT LOW/MODER SEVERITY CRITICAL NEW ACCESS 5 5 [facility] MED CTR OFFICE 00424 [place] WHAYNE JR OUTPATIEN 5 5 MEDICAL THO T VISIT SERV 15 FOUNDATIO MINUTES N OFFICE [address] [facility] OUTPATIEN 5 5 GERALDO KIRILL T VISIT [address] ACCESS 4 4 [facility] ADDIE OFFICE [address] [facility] OUTPATIEN 4 4 GERALDO II QUENTIN T VISIT 25 PHYSICIAN MINUTES S OFFICE 19[address] [facility] OUTPATIEN 4 4 GERALDO II QUENTIN T VISIT [address] ACCESS 4 4 [facility] 39079 UNIVERSIT 4 4 Y [facility] HOSPITAL T VISIT HIGH/URGE NT SEVERITY [facility] UNIVERSIT - 4 4 Y [facility] [address] [facility] 4 4 Y INPATIENT HOSPITAL EMERGENCY 79215 UNIVERSIT DEPT 4 4 Y VISIT HOSPITAL HIGH SEVERITY& THREAT [facility] UNIVERSIT - 4 4 Y [facility] EMERGENCY 14405 NEW 4 4 [facility] CTR T VISIT HIGH/URGE NT SEVERITY HOSPITAL NEW - 4 4 [facility] INPATIENT MED CTR EMERGENCY 15908 NEW 4 4 [facility] MED CTR T VISIT HIGH/URGE NT SEVERITY CRITICAL NEW ACCESS 4 4 [facility] ST - OTHER 4 4 GERALDO MED CTR STAFF DEVELOPMENT EDUCATOR ST OFFICE 08337 [facility] OUTPATIEN 4 4 GERALDO KIRILL T VISIT 15 PHYSICIAN MINUTES S EMERGENCY 24420 UNIVERSIT DEPT 4 4 Y VISIT HOSPITAL HIGH SEVERITY& THREAT [facility] UN[facility]ERSIT - 4 4 [facility] T OFFICE 460[address] [facility] OUTPATIEN 4 4 GERALDO KIRILL T VISIT 15 PHYSICIAN MINUTES HOSPITAL CENTRAL - 4 4 [facility] T EMERGENCY 50252 [facility] DEPT 4 4 EMERGENCY DIR VISIT PHYS PSC HIGH SEVERITY& THREAT FUN EMERGENCY 99998 MAX 4 4 [facility] DEPARTMEN HOSP T VISIT HIGH/URGE NT SEVERITY OFFICE 46[address] [facility] OUTPATIEN 4 4 GERALDO KIRILL T VISIT 25 PHYSICIAN MINUTES S OFFICE [address] [facility] TH[facility] OUTPATIEN 4 4 GERALDO II QUENTIN T VISIT 15 PHYSICIAN MINUTES S EMERGENCY 65666 [facility] DEPT 4 4 GERALDO SHIRAZ VISIT MED CTR HIGH SEVERITY& THREAT FUN OFFICE 49582 [facility] OUTPATIEN 4 4 GERALDO KIRILL T VISIT 25 PHYSICIAN MINUTES S OFFICE 95316 [facility] OUTPATIEN 3 3 GERALDO KIRILL T VISIT 15 PHYSICIAN MINUTES [facility] CARDINAL - 3 3 [facility] OUTPATIEN REHAB T HOSP OFFICE 28637 AURELIANO LUGO OUTPATIEN 3 3 [facility] SMITH 45 PSC MINUTES OFFICE 48131 OUTPATIEN 3 3 PARAM SMITH 20 REHAB MINUTES HOSP OFFICE 85223 [facility] OUTPATIEN 3 3 GERALDO KIRILL T VISIT 25 PHYSICIAN MINUTES S EMERGENCY 85698 MARLON GILLIAM DEPT 3 3 MEDICAL I ALI VISIT SERV HIGH FOUNDATIO SEVERITY& THREAT FUNJ OFFICE 95630 MARLON DUNLAP JR OUTPATIEN 3 3 MEDICAL THO T VISIT SERV 15 FOUNDAT[facility] - 3 3 [facility] - 3 3 [facility] - 3 3 [facility] T EMERGENCY 71226 UNIVERSIT DEPT 3 3 Y VISIT HOSPITAL HIGH SEVERITY& THREAT FUNCJ OFFICE 84204 MARLON DUNLAP JR [facility] 3 3 MEDICAL THO T VISIT SERV 40 FOUNDATIO [address] [facility] DEPT 3 3 [facility] VISIT MED CTR HIGH SEVERITY& THREAT FUN EMERGENCY 59412 ACUTE SHARI 3 3 [facility] HIGH/URGE NT SEVERITY [facility] UNIVERSIT - 3 3 Y INPATIENT HOSPITAL EMERGENCY 02258 MARLON GARDNER DEPT 3 3 MEDICAL AUGUST VISIT SERV HIGH FOUNDATIO SEVERITY& THREAT FUN OFFICE 85985 MARLON DUNLAP JR [facility] 3 3 MEDICAL THO T VISIT SERV 15 [facility] UNIVERSIT - 3 3 [facility] - 3 3 [facility] T OFFICE 66134 MARLON DUNLAP JR [facility] 3 3 MEDICAL THO T VISIT SERV 25 [facility] 3 3 [facility] EMERGENCY 51225 UNIVERSIT DEPT 3 3 Y VISIT HOSPITAL HIGH SEVERITY& THREAT [facility] UNIVERSIT - 3 3 Y [facility] T OFFICE 18117 MARLON CAI [facility] 3 3 MEDICAL T VISIT SERV 25 FOUNDATIO MINUTES EMERGENCY 64308 MARLON HUDDLESTON 3 3 [facility]IT FOUNDATIO HIGH/URGE NT SEVERITY OFFICE 54876 ALLRAN JR ALLRAN JR OUTPATIEN 3 3 VEE VEE T NEW [address] [facility] OUTPATIEN 3 3 GERALDO II QUENTIN T VISIT [address] ACCESS 3 3 [facility] ADDIE OFFICE [address] [facility] OUTPATIEN 3 3 [facility] T VISIT [address] [facility] - OTHER 3 3 [facility] OFFICE 7[address] [facility] OUTPATIEN 3 3 [facility] T VISIT 15 PHYSICIAN MINUTES S OFFICE [address] [facility] THRELKELD OUTPATIEN 3 3 [facility] QUENTIN T VISIT [address] [facility] - OTHER 3 3 [facility] OFFICE [address] [facility] OUTPATIEN 3 3 [facility] QU[facility] T VISIT 15 PHYSICIAN MINUTES S OFFICE 83096 [facility] OUTPATIEN 3 3 GERALDO T VISIT [address] - OTHER 3 3 [facility] NTER EMERGENCY 21612 MARLON JONES DEPT 3 3 MEDICAL ARON VISIT SERV HIGH FOUNDATIO SEVERITY& THREAT [facility] UNIVERSIT - 3 3 Y INPATIENT [facility] SUSAN - 2 2 [facility] OUTPATIEN INC T OFFICE 27036 MARLON ROCHA OUTPATIEN 2 2 MEDICAL T VISIT SERV 25 FOUNDATIO MINUTES EMERGENCY 31119 MARLON MONET DEPT 2 2 MEDICAL VISIT SERV HIGH FOUNDATIO SEVERITY& THREAT [facility] UNIVERSIT - 2 2 Y INPATIENT HOSPITAL OFFICE 09439 [facility] OUTPATIEN 2 2 GERALDO II QUENTIN T VISIT [address] ACCESS 2 2 [facility] ADDIE EMERGENCY 58877 ST. 2 2 GERALDO DEPARTMEN ADDIE T VISIT HIGH/URGE NT SEVERITY EMERGENCY 32455 ST RICHARDSO DEPT 2 2 GERALDO N GLORIA VISIT MED CTR HIGH SEVERITY& THREAT FUNCJ CRITICAL ST. ACCESS 2 2 [facility] ADDIE OFFICE [address] THRELKELD OUTPATIEN 2 2 GERALDO II QUENTIN T VISIT 15 PHYSICIAN MINUTES S OFFICE [address] [facility] OUTPATIEN 2 2 GERALDO II QUENTIN T VISIT 15 PHYSICIAN MINUTES S OFFICE 379[address] [facility] OUTPATIEN 2 2 GERALDO II QUENTIN T VISIT 15 PHYSICIAN MINUTES [facility] ST - OTHER 2 2 GERALDO MEDICALCE NTER OFFICE 79908 ST ZHAOEY OUTPATIEN 2 2 GERALDO ER GUILHERME T VISIT [address] ACCESS 2 2 [facility] ADDIE OFFICE 9[address] STRICKMEY OUTPATIEN 2 2 GERALDO ER GUILHERME T VISIT 25 PHYSICIAN MINUTES S EMERGENCY 02635 ST. DEPT 1 1 GERALDO VISIT ADDIE HIGH SEVERITY& THREAT FUNCJ CRITICAL ST. ACCESS 1 1 [facility] ADDIE EMERGENCY 69758 NEW DEPT 1 1 [facility]IZONS VISIT MED CTR HIGH SEVERITY& THREAT FUNCJ CRITICAL NEW ACCESS 1 1 [facility] MED CTR CRITICAL ST. ACCESS 1 1 [facility] [address]10 [facility]. DEPT 1 1 GERALDO VISIT [place] HIGH SEVERITY& THREAT [facility] ST - 1 1 GERALDO INPATIENT [facility] ST - 1 1 GERALDO INPATIENT [facility] EMERGENCY 39480 ST. DEPT 1 1 GERALDO VISIT [place] HIGH SEVERITY& THREAT [facility] ST - 1 1 GERALDO [facility] 97009 ST. DEPT 1 1 GERALDO VISIT [place] HIGH SEVERITY& THREAT [facility] KENNEDY - 1 1 [facility] H[facility] KENNEDY - 1 1 [facility] HOSPITAL EMERGENCY 83591 [facility] DEPT 1 1 [facility] HIGH SEVERITY& THREAT [facility] MHC INC, - 1 1 STAFF DEVELOPMENT EDUCATOR INPATIENT [facility] SUSAN - 1 1 [facility] OUTPATIEN INC T EMERGENCY 15763 [facility] DE[facility] 1 RURAL VISIT [facility] HIGH CLINIC SEVERITY& THREAT FUN CRITICAL KENNEDY ACCESS 1 1 [facility] EMERGENCY 68110 BRAYAN SCHMIDT 1 1 LACEY LACEY DEPARTMEN T VISIT HIGH/URGE NT SEVERITY EMERGENCY 69770 ACUTE CALDERON 0 0 CARE [facility] DEPARTMEN BILLING T VISIT [facility] HIGH/URGE NT SEVERITY EMERGENCY 61806 NEW 0 0 [facility] MED CTR T VISIT MODERATE SEVERITY CRITICAL NEW ACCESS 0 0 [facility] MED CTR OFFICE 77742 [facility] REKHA OUTPATIEN 0 0 FOOT & T NEW 20 ANKLE CE MINUTES OFFICE 30363 RINALDINI RINALDINI OUTPATIEN 0 0 LACEY LACEY T VISIT 15 MINUTES OFFICE 20679 MAX LIU TRA OUTPATIEN 0 0 [place] T VISIT ORTHOPAED 15 [employer] MINUTES HOSPITAL SUSAN - 0 0 [facility] 17101 RINALDINI RINALDINI OUTPATIEN 0 0 LACEY LACEY T VISIT 15 MINUTES CRITICAL [place]ENN[place]Y ACCESS 0 0 [facility] EMERGENCY 59430 KENNEDY 0 0 [facility] T VISIT MODERATE SEVERITY CRITICAL [place]ENNEDY ACCESS 0 0 [facility] EMERGENCY 02209 ACUTE BART[place] DEPT 0 0 CARE MUH VISIT BILLING [facility]IGH [facility] SEVERITY& THREAT [facility] CENTRAL - 0 0 [facility] INPATIENT HOSP OFFICE 27220 MILY OUTPATIEN 0 0 CLINIC T NEW 30 PSC MINUTES CRITICAL KENNEDY ACCESS 0 0 [facility] CARDINAL - 0 0 [place] INPATIENT [facility] UNIVERSIT - 0 0 Y INPATIENT HOSPITAL OFFICE 12282 RINALDINI RINALDINI OUTPATIEN 0 0 , CHANA , CHANA T VISIT 15 MINUTES HOSPITAL UNIVERSIT - 0 0 Y [facility] T OFFICE 98091 [place] OUTPATIEN 0 0 MEDICAL JR, T VISIT SERV [facility] - [facility] 0 Y [facility] T OFFICE [address] [place] OUTPATIEN 0 0 MEDICAL JR, T VISIT SERV [facility] OFFICE 56058 RINALDINI RINALDINI OUTPATIEN 0 0 , CHANA , CHANA T VISIT 15 MINUTES EMERGENCY 92442 NEW DEPT 0 0 HORIZONS VISIT MED [facility] HIGH SEVERITY& THREAT [facility] UNIVERSIT - 0 0 Y INPATIENT HOSPITAL OFFICE 61925 TRISTIAN BLOODO, OUTPATIEN 0 0 [facility] T VISIT SPEC 40 MINUTES EMERGENCY 12749 KENNEDY VOGELO 0 0 [facility] T VISIT MODERATE SEVERITY OFFICE 54652 RINALDINI RINALDINI OUTPATIEN 0 0 , CHANA , CHANA T VISIT 15 MINUTES OFFICE 50625 RINALDINI RINALDINI OUTPATIEN 0 0 , CHANA , CHANA T VISIT 15 MINUTES CRITICAL [facility] ACCESS 0 0 [facility] OFF[facility] 66523 RINALDINI RINALDINI OUTPATIEN 0 0 , CHANA , CHANA T VISIT 15 MINUTES EMERGENCY 01971 ACUTE [place], 0 0 CARE [facility] T VISIT [facility] MODERATE SEVERITY CRITICAL NEW ACCESS 0 0 [facility] CRITICAL NEW ACCESS 0 0 [facility] EMERGENCY 00927 NEW DEPT 0 0 [facility] HIGH SEVERITY& THREAT COUNTS INCLUDE 234 [facility] OFFICE 31570 RINALDINI RINALDINI OUTPATIEN 0 0 , CHANA , CHANA T VISIT 15 MINUTES OFFICE 52314 RINALDINI RINALDINI OUTPATIEN 9 9 , CHANA , CHANA T VISIT 15 MINUTES OFFICE 66395 RINALDINI RINALDINI OUTPATIEN 9 9 , CHANA , CHANA T VISIT 5 MINUTES OFFICE 18779 RINALDINI RINALDINI OUTPATIEN 9 9 , CHANA , CHANA T VISIT 15 MINUTES OFFICE 57068 RINALDINI RINALDINI OUTPATIEN 9 9 , LACEY ZAYAS T VISIT 10 MINUTES HOSPITAL SUSAN - 9 9 [facility] OUTPATIEN [facility] T OFFICE 88809 RINALDINI RINALDINI OUTPATIEN 9 9 , LACEY ZAYAS T VISIT 10 MINUTES CRITICAL [place] ACCESS 9 9 [facility] CR[facility] [place] ACCESS 9 9 [facility] [place] ACCESS 9 9 [facility] 9 9 [facility] 9 9 [facility] 9 9 [facility] 8 8 [facility] ACCESS 8 8 [facility] ACCESS 8 8 [facility] KENNEDY - 8 8 [facility] KENNEDY - 8 8 [facility] KENNEDY - 8 8 [facility] - 8 8 [facility] - 8 8 [facility] - 8 8 [facility] - 8 8 [facility] - 8 8 [facility] SUSAN - 8 8 [facility] - 8 8 [facility] KENNEDY - 8 8 [facility] KENNEDY - 8 8 [facility] KENN[facility]Y - 8 8 [facility] - 8 8 [facility] KENN[facility]Y - 8 8 [facility] KENNEDY - 8 8 [facility] KENNEDY - 8 8 [facility] KENNEDY - 8 8 [facility]
--- OUTSIDE RECORDS SUMMARY | 2016-09-29 12:33 | External Medical Summary Rpt ---
Demographics Home Phone Preferred Language Estonian Marital Status Unknown [employer] Affiliation Unknown Race Unknown Ethnic Group Unknown Author Author , FREDY RUIZ Address Unknown Phone [email or web address]. Immunization Name Date Rout CVX Reac Dose Comm Prov Is Faci e tion ent ider Refu lity Give sed n Infl 10-3 135 999 Hist D041 No D041 uenz 1-20 oric 02 02 a, 16 al High Info rmat Dose ion - Sour ce Unsp ecif ied PPV2 03-1 33 0.5 Hist [facility] No [facility] 3 7-20 mL oric 1 1 16 al Info rmat ion - Sour ce Unsp ecif ied PCV1 11-2 Intr 133 999 Hist 1050 No 1050 3 2-20 amus oric 0 0 08 cula al r Info rmat ion - Sour ce Unsp ecif ied
--- OUTSIDE RECORDS SUMMARY | 2016-09-29 12:33 | External Medical Summary Rpt ---
Author Author JOSEPH Velasco, JOSEPH Velasco Organization [employer] Address Unknown Phone Unavailable
--- OUTSIDE RECORDS SUMMARY | 2016-09-29 12:33 | External Medical Summary Rpt ---
Demographics Home Phone Preferred Language Mongolian Marital Status Unknown Yazidism Affiliation Unknown Race Unknown Ethnic Group Unknown Author Author , FREDY RUIZ Address Unknown Phone [email or web address] Immunization Name Date Rout CVX Reac Dose [...]
--- NOTE | 2016-09-29 12:41 | RADIOLOGY REPORT PS360 ---
SINUS SERIES 3 VIEWS COMPARISON: None HISTORY: Sinus congestion TECHNIQUE: Mckeon view, lateral and PA view FINDINGS: The peroneal sinuses appear clear. The nasal septum is midline. The nasal bone is intact. IMPRESSION: Negative sinus series
--- NOTE | 2016-09-29 12:43 | RADIOLOGY REPORT PS360 ---
CHEST-PORTABLE COMPARISON: None HISTORY: Pain TECHNIQUE: Oral upright chest FINDINGS: The lung steen are well expanded and appear clear of infiltrate. 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 A small amount of fluid at the right costo phrenic angle cannot be entirely excluded There is borderline Otoniel megaly and there are sternal wire sutures noted likely from previous bypass procedure. There is a left-sided cardiac pacemaker with dual chamber electrodes both in good position. IMPRESSION: Mild cardio megaly, no acute chest pathology noted, probable scarring right costo phrenic angle
[2016-09-29 12:53] VITALS: BP 119/75
== END 2016-09-29 12:54 | disposition home or self-care (01) ==
LOC: ER 11:02
PROVIDERS: General Practice
DX: R07.89 Other chest pain (principal); J44.9 Chronic obstructive pulmonary disease, unspecified; I10 Essential (primary) hypertension; R06.02 Shortness of breath
CPT/HCPCS: J2405